=== PATIENT | female | born 1965 | race Caucasian/White ===

== ENCOUNTER 2017-06-15 20:40 | Observation (INO) ==
[2017-06-15] MEDS ORDERED: *HR* Promethazine 25 MG/ML VIAL IVP PRN (22:52)
[2017-06-15] MEDS ORDERED: Acetaminophen 325 MG TABLET PO PRN (22:52)
[2017-06-15] MEDS ORDERED: Naloxone 0.4 MG/ML INJ IVP PRN (22:52)
[2017-06-15] MEDS ORDERED: Nitroglycerin 0.4 MG TAB.SUBL SL PRN (23:01)
[2017-06-15] MEDS ORDERED: Diphenoxylate/Atropine 1 TAB TABLET PO PRN (23:06)
[2017-06-15] MEDS ORDERED: *HR* Dextrose 50 % in Water (Syg) 50 ML SYRINGE IVP PRN (23:12)
[2017-06-15] MEDS ORDERED: D5% in Water 1,000 ML IVC PRN (23:12)
[2017-06-15] MEDS ORDERED: Dextrose Gel 15 GM PO PRN ×2 (23:12)
[2017-06-15] MEDS ORDERED: Ipratropium/Albuterol Neb 3 ML IH PRN (23:12)
[2017-06-15] MEDS ORDERED: NON-FORMULARY MEDICATION 1 EACH EACH (Oxygen [Oxygen] 2 L) NS SCH (23:15)
--- NOTE | 2017-06-15 23:16 | Internal Med History&Physical ---
<Lefty Gongora - Last Filed: 06/16/17 02:58> Date of Encounter: 06/16/17 Time of Encounter: 22:45 Assessment and Plan (1) Acute exacerbation of chronic obstructive airways disease Current visit: No Status: Acute Patiently recently discharged from hospital where she received antibiotics, but did not continue antibiotics as outpatient. Patient reports sudden worsening of shortness of breath with productive cough, leukocytosis (though could be due to steroids), and subjective fevers. We will treat as COPD exacerbation with oral prednisone, azithromycin, and breathing treatments All monitor oxygen saturation and telemetry (2) Bronchitis Current visit: No Status: Acute Plan as above (3) Chest pain Current visit: No Status: Acute Patient chest pain appears pleuritic in nature, unlikely PE given patient's COPD and preserved vitals. The pain could be due to pericarditis, chest x-ray was not suggestive. We will treat acute exacerbation COPD as above We will give 1 dose 800 mg ibuprofen We will continue to trend troponins We will obtain additional EKG in a.m. We will add some lingual nitroglycerin as needed for continued chest pain Qualifiers: Chest pain type: other chest pain Qualified Code(s): R07.89 - Other chest pain; R07.8 - Other chest pain (4) Chronic diastolic heart failure Current visit: No Status: Chronic Last echo performed 06/13/17 showed preserved ejection fraction 55-60%, normal LV size and function, mild concentric left ventricular hypertrophy, and atypical septal motion defect consistent with left bundle branch block. Stable (5) Diabetes mellitus type 2 in obese Current visit: No Status: Chronic Patient normally uses 36 units Lantus at home as well as sliding scale. We will start 36 units Levemir at bedtime Medium dose sliding scale insulin (6) DVT prophylaxis Current visit: No Status: Acute 40 mg enoxaparin every morning (7) Smoker Current visit: No Status: Chronic Counseled on smoking cessation Nicotine patch added (8) Anxiety Current visit: No Status: Chronic Continue home medications Internal Medicine - H&P: HPI Chief complaint: Shortness of breath and CP Admitted From: Home Plans for Post Hospital Care: Home History of present illness: Ms. Strong is a 52 year old female with prior medical history of A. fib, CHF, coronary artery disease, diabetes mellitus, hyperlipidemia, hypertension, and prior MIs who presents to the [place] [facility] originally because of shortness of breath and chest pain. She states these feelings started suddenly this afternoon with shortness of breath to begin with followed by substernal chest pain. She reports her shortness of breath has been progressive over the course of the day and work into chest pain. She was recently discharged after being treated for acute exacerbation COPD and had received antibiotics at that time, she states she was not discharged with antibiotics. She reports that she has had a worsening of her cough and phlegm production. She reports the chest pain as a tight/stabbing feeling that radiates into her neck is 9/10 severity and has been constant for 3 hours. She states that nothing improves the pain and that taking a deep breath makes pain worse, but also causes pain in her left flank. She had recently been discharged from the hospital on 06/13/17 after having been treated for an acute exacerbation COPD. She is scheduled to see her larder cook in [facility] next week. She reports having palpitations during which is hard for her to catch her breath as well as exertional shortness of breath. She feels as if this pain is similar to her previous CA in the past. She feels like she has been somewhat lightheaded and having episodes of fevers, palpitations, and diaphoresis. The diaphoresis coming when she has fevers. She reports having chronic diarrhea as well as occasional hematochezia for which she is currently under the care of Dr. Anand and waiting for a colonoscopy. Past Med Surg Social Fam HX - Past Medical History Medical history: arthritis, atrial fibrillation, CHF, COPD, coronary artery disease, CVA, diabetes, GERD, hyperlipidemia, hypertension, migraine, myocardial infarction, peripheral artery disease, TIA, other Psychiatric history: anxiety, depression, prior suicide attempt, previous psychiatric hospitalization - Past Surgical History Surgical History: angioplasty/stent, appendectomy, cholecystectomy, knee replacement, other - Social History Smoking Status: Current every day smoker Smokeless Tobacco Status: No Alcohol use: rarely Drug use: none - Family History Mother Living Status: Hx Family Cardiac Disorders: Yes Hx Family Respiratory Disorders: Yes Hx Family Cancer: Yes Hx Family GI Disorders: No Hx Family Endocrine Disorder: Yes Hx Family Neuromuscular Disorders: No Hx Family Neurologic Disorders: Yes Hx Family HEENT Disorders: No Hx Family Autoimmune Disorders: No Internal Medicine - H&P: Meds Albuterol Sulfate 3 ml IH Q6H PRN 12/30/16 [History] Budesonide/Formoterol 160/4.5 [Symbicort 160/4.5] 2 puff IH BIDR 12/30/16 [ History] Clotrimazole/Betameth Dip CRM [Lotrisone CRM] 1 appl TP BID 12/30/16 [History] Insulin ASPART [NovoLOG] 0 unit SQ TIDWM PRN 12/30/16 [History] Insulin Glargine,Hum.rec.anlog [Lantus Solostar] 36 unit SQ HS 12/30/16 [History ] Levalbuterol Tartrate [Xopenex Hfa] 1 puff IH BID 12/30/16 [History] Nitroglycerin [Nitrostat] 0.4 mg SL Q5M PRN 12/30/16 [History] Ranitidine HCl [Acid Dog Daycare Provider] 150 mg PO BID 12/30/16 [History] Tiotropium [Spiriva] 18 mcg IH 0700 12/30/16 [History] Ammonium Lactate [Amy-Hydrolac] 1 appl TP BID 03/15/17 [History] Calcium Polycarbophil [Fibercon] 625 mg PO TID PRN 03/15/17 [History] Oxygen 2 l NS HS 03/15/17 [History] Diphenoxylate/Atropine [Lomotil 2.5 mg/0.025 mg] 1 each PO QID PRN 06/10/17 [ History] Tramadol HCl [Ultram] 50 mg PO TID PRN 06/10/17 [History] LORazepam [Ativan] 0.5 mg PO HS #30 tablet 06/13/17 [Rx] Metoprolol [Lopressor] 12.5 mg PO BID #60 tab 06/13/17 [Rx] predniSONE [PredniSONE] 40 mg PO DAILY #10 tablet 06/13/17 [Rx] traZODone [TraZODone] 50 mg PO DAILY #30 tab 06/13/17 [Rx] Gabapentin [Neurontin] 300 mg PO TID 06/15/17 [History] 3 Allergy/AdvReac Type Severity Reaction Status Date / Time baclofen Allergy Itching Verified 05/12/17 20:49 ciprofloxacin [From Cipro] Allergy Hives Verified 06/10/17 10:53 latex Allergy Rash Verified 05/12/17 20:49 Oxycodone Allergy Hallucinati Verified 05/12/17 20:49 ng Penicillins Allergy Hives Verified 05/12/17 20:49 prednisone Allergy Itching Verified 05/12/17 20:49 sulfamethoxazole Allergy Hives Verified 05/12/17 20:49 [From Bactrim] trimethoprim [From Bactrim] Allergy Hives Verified 05/12/17 20:49 cefdinir AdvReac Vomiting Verified 06/10/17 10:53 Review of systems: Gen: Reports fever, denies chills, denies weakness, denies fatigue CV: Reports chest pain, reports exertional dyspnea, reports palpitations Resp: Reports shortness of breath, reports pleuritic pain, reports productive cough, denies wheeze GI: Denies nausea, denies vomiting, denies abdominal pain, denies constipation, reports diarrhea, reports occasional hematochezia, denies melena Neuro: Denies headache, denies confusion, denies focal weakness, denies numbness , denies tingling, denies vision changes Skin: Denies bruising, denies rash : Denies flank pain, denies dysuria, denies hematuria - Constitutional Vitals: Temp Pulse Resp BP Pulse Ox 98.3 F 82 19 113/74 94 06/15/17 22:24 06/15/17 22:24 06/15/17 22:24 06/15/17 22:24 06/15/17 22:24 Exam: General: Cooperative, pleasant, no acute distress, alert and oriented 3, answers questions appropriately HEENT: Normocephalic, atraumatic, neck supple, trachea midline, Conjunctiva pink , sclera anicteric, PERRL, oral mucosa moist, no orophargeal erythema or exudates Respiratory: No accessory muscle usage, diffuse-mild rales on auscultation Cardiovascular: Regular rate and rhythm, S1 and S2 present, no murmurs/rubs/ gallops/clicks appreciated GI/abdominal: Nondistended, nontender, soft, normal bowel sounds, no peritoneal signs Extremities: No calf tenderness, noncyanotic, no pedal edema appreciated, warm, lower extremity pulses palpable and symmetrical Neurological: Alert and oriented 3, no facial droop, no focal deficits Skin: Dry, intact, normal color Internal Med - H&P Results - Labs CBC & Chem 7: 06/16/17 00:21 <Juan David Rust - Last Filed: 06/16/17 04:01> Date of Encounter: 06/16/17 Internal Medicine - H&P: HPI History of present illness: Ms. Strong is a 52 year old female All Systems PM: A 10-system review of systems was performed and is negative for pertinent findings except as documented above in the HPI. - Constitutional Vitals: Temp Pulse Resp BP Pulse Ox 98.0 F 73 16 125/74 95 06/16/17 03:21 06/16/17 03:21 06/16/17 03:21 06/16/17 03:21 06/16/17 03:21 Internal Med - H&P Results - Labs CBC & Chem 7: 06/16/17 00:21 Labs: Short CBC 06/16/17 Range/Units 00:21 WBC 17.9 H (4.3-11.1) K/mcL Hgb 13.8 (11.5-15.4) g/dL Hct 42.4 (35.3-44.9) % Plt Count 264 (140-400) K/mcL Neutrophils # 16.0 H (1.6-8.9) K/mcL Cardiac Enzymes 06/16/17 Range/Units 00:21 Troponin I 0.01 (0-0.03) ng/mL - Attending Attestation I examined this patient and my medical decision-making was reviewed with the Resident Physician. I agree with the documented findings, disposition and treatment plan as described except to the extent set forth below. 52 yo female who was recently admitted and discharged 06/13/17 for COPD flare who presents with mild worsening of symptoms today. Reported SOB with exertion started today. Associated with increased cough since returning home. Is received 20mg prednisone steroid taper therefore explaining the leukocytosis. In addition to SOB, started to noticed some pleuritic quality like chest pain since around 530 pm sternal in nature, stabbing in quality, radiation to neck. Has significant CAD with 2 CVAs reported and 3 CA reported by patient. Had 1 stent 2006. She is established with Dr Hancock cardiology at [place]. EKG reviewed by self with LBBB appearing unchanged, rate 84, non-specific T wave changes. However, some AR depression suggestive of early pericarditis ? XR/XR chest 1V portable IMPRESSION:No acute process. ROS 14 point review of systems reviewed as best as possible given presentation. Pertinent positive or negative as per HPI or otherwise reviewed as negative General - AAO x 3 Psych - Appropriate affect/speech. No agitation Eyes - [place]. Eye lids intact. No scleral icterus Heart - Sinus. RRR. S1 and S2 present. No added HS/murmurs appreciated. No elevated JVD appreciated. Lung - Adequate air entry b/l, No crackles. Scant wheezes appreciated only on deep inspiration GI - Soft, no guarding or rigidity. No hepatosplenomegaly/ascites. BS+ - No CVA/suprapubic tenderness or palpable bladder distension Skin - Intact. No rash/petechiae/ecchymosis. Warm extremities A/P COPD flare IV steroids, azithromycin, Duonebs. CXR wnl Chest pain, pleuritic in quality doubt ACS but given hx, will trend trop, repeat EKG in a.m. Suspicious EKG changes for pericarditis with mild AR depression ? Prn NSAIDs Leukocytosis likely related to steroids DMII continue insulin
[2017-06-15] MEDS ORDERED: Ibuprofen 800 MG TABLET PO ONE (23:28)
[2017-06-16] MEDS: Nicotine 14 MG PATCH.TD24 TD SCH ×2 (00:31→09:13)
[2017-06-16] MEDS: methylPREDNISolone 125 MG/2 ML VIAL IVP SCH ×5 (00:31→23:38)
[2017-06-16 00:33] LABS: Basophils % 0.2 %; Eosinophils % 0.1 %; Hematocrit 42.4 % (35.3-44.9); Hemoglobin 13.8 g/dL (11.5-15.4); Lymphocytes # 1.3 K/mcL (0.6-4.6); Mean Corpuscular HGB Conc 32.5 g/dL (31.6-35.5); Mean Corpuscular Volume 89.1 fL (83.0-100.0); Mean Platelet Volume 9.8 fL (9.4-12.4); Monocytes # 0.3 K/mcL (0.0-1.3); Monocytes % 1.5 %; Platelet Count 264 K/mcL (140-400); Red Blood Count 4.76 M/mcL (3.82-4.97); Red Cell Distribution Width 14.2 % (11.5-14.5); Segmented Neutrophils % 89.2 %
[2017-06-16 00:42] LABS: Magnesium 1.8 mg/dL (1.6-2.6); Phosphorous 3.8 mg/dL (2.3-4.7)
[2017-06-16] MEDS ORDERED: *HR* LORazepam 0.5 MG TABLET PO SCH ×2 (01:16→21:00)
[2017-06-16] MEDS: Gabapentin 300 MG CAPSULE PO SCH ×4 (01:41→21:39)
[2017-06-16] MEDS: traZODone 50 MG TABLET PO SCH ×2 (01:41→21:39)
[2017-06-16] MEDS: Ipratropium/Albuterol Neb 3 ML IH SCH ×5 (03:36→22:36)
[2017-06-16] MEDS: *HR* Enoxaparin 40 MG/0.4 ML SYRINGE SQ SCH (05:56)
[2017-06-16] MEDS: Pantoprazole 40 MG VIAL IVP SCH (05:56)
[2017-06-16] MEDS ORDERED: Gabapentin 300 MG CAPSULE PO SCH (09:00)
[2017-06-16] MEDS ORDERED: traZODone 50 MG TABLET PO SCH (09:00)
[2017-06-16] MEDS: Famotidine 20 MG TABLET PO SCH ×2 (09:12→17:50)
[2017-06-16] MEDS: Insulin LISPRO 300 UNITS/3 ML VIAL SQ SCH ×3 (09:14→17:52)
[2017-06-16] MEDS: Budesonide/Formoterol 160/4.5 MDI IH SCH ×2 (10:44→22:37)
[2017-06-16] MEDS: *HR* LORazepam 1 MG TABLET PO PRN ×2 (15:41→21:56)
--- NOTE | 2017-06-16 16:30 | Internal Med Progress Note ---
<SoledadYumiko - Last Filed: 06/16/17 16:49> Date of Encounter: 06/16/17 Time of Encounter: 09:28 - Assessment and plan (1) Chest pain Current Visit: No Status: Acute Assessment and plan: Chest pain 2/2 to CAD vs. anxiety Pleuritic chest pain, in history. With radiation to neck Atypical chest pain Hx of CAD- Pt received standard chest pain evaluation r/o for cardiac etiology -did not increase with exertion -did not relieve with rest 06/15/ EKG reviewed Troponin x 2 : 0.01, 0.0 06/13 ECHO from previous admission reviewed Qualifiers: Chest pain type: chest pain on breathing Qualified Code(s): R07.1 - Chest pain on breathing; R07.81 - Pleurodynia (2) Anxiety Current Visit: No Status: Chronic Assessment and plan: History of chest pain, suggestive of possible anxiety or panic attack, inc: Palpitations, chest pain, sensation of shortness of breath Pt has history of depression, anxiety and bipolar disorder, & insomnia in most recent visit Psych on consult, greatly appreciate recs (3) COPD (chronic obstructive pulmonary disease) Current Visit: No Status: Acute Assessment and plan: SOB likely 2/2 to COPD vs. anxiety Hx of COPD exacerbation 2 days ago Continue treatment Qualifiers: COPD type: COPD with acute exacerbation Qualified Code(s): J44.1 - Chronic obstructive pulmonary disease with (acute) exacerbation (4) Diabetes mellitus type 2 in obese Current Visit: No Status: Chronic Assessment and plan: Continue insulin Monitor glucose (5) Chronic diastolic heart failure Current Visit: No Status: Chronic (6) Morbid obesity with BMI of 50.0-59.9, adult Current Visit: No Status: Chronic (7) Afib Current Visit: No Status: Chronic Assessment and plan: [id number] - 5 (Age, F, CHF history , HTN Hx, Vascular disease, DM) Pt on Lovenox Qualifiers: Atrial fibrillation type: paroxysmal Qualified Code(s): I48.0 - Paroxysmal atrial fibrillation (8) DVT prophylaxis Current Visit: No Status: Acute Assessment and plan: Pt on lovenox (9) Smoker Current Visit: No Status: Chronic Assessment and plan: Nicotine patch (10) Depression Current Visit: Yes Status: Chronic Assessment and plan: Pt seen with psych, greatly appreciate consult recs Qualifiers: Depression Type: major depressive disorder Major depression recurrence: recurrent Active/Remission status: currently active Psychotic features: without psychotic features Qualified Code(s): F33.2 - Major depressive disorder, recurrent severe without psychotic features - Subjective Interval history: Pt sitting comfortably in no distress. States she feels like her chest "tightness" was possibly caused by her anxiety. Chest pain was not exertional, did not relieve with rest. Would like to see psychiatry sooner for her medication - Constitutional Vitals: Temp Pulse Resp BP Pulse Ox 97.9 F 87 17 147/70 96 06/16/17 15:18 06/16/17 15:18 06/16/17 16:12 06/16/17 15:18 06/16/17 16:12 General appearance: Present: cooperative, A&O X 3, no acute distress, answers questions appropriately - Head Head exam: Present: atraumatic, normocephalic - Respiratory Respiratory exam: Present: wheezes (expiratory). Absent: accessory muscle use, decreased breath sounds, rales, respiratory distress (pt removed nasal cannula. Pulse ox at end of exam 95%) - Cardiovascular Cardiovascular exam: Present: RRR, +S1, +S2. Absent: gallop, rubs - Extremities Exam Extremities exam: Present: warm, radial pulses palpable and symmetrical. Absent : calf tenderness, cyanotic, mottling, pedal edema Additional comments: erythema on lower right LE, pt states chronic, unchanged in character since initial appearance. No tenderness in area. Internal Medicine: Result - Labs CBC & Chem 7: 06/16/17 00:21 Labs: Short CBC 06/16/17 Range/Units 00:21 WBC 17.9 H (4.3-11.1) K/mcL Hgb 13.8 (11.5-15.4) g/dL Hct 42.4 (35.3-44.9) % Plt Count 264 (140-400) K/mcL Neutrophils # 16.0 H (1.6-8.9) K/mcL Cardiac Enzymes 06/16/17 06/16/17 Range/Units 00:21 05:59 Troponin I 0.01 0.00 (0-0.03) ng/mL Consult Discharge Plan - Plan Referrals: Maurisio Ward MD [Primary Care Provider] - 06/23/17 9:45 am <Ray Lepe - Last Filed: 06/16/17 19:42> Date of Encounter: 06/16/17 - Assessment and plan (1) Acute and chronic respiratory failure with hypoxia Current Visit: No Status: Acute (2) COPD (chronic obstructive pulmonary disease) Current Visit: No Status: Acute Qualifiers: COPD type: COPD with acute exacerbation Qualified Code(s): J44.1 - Chronic obstructive pulmonary disease with (acute) exacerbation (3) SNEHA (obstructive sleep apnea) Current Visit: No Status: Chronic (4) Tobacco abuse Current Visit: No Status: Chronic (5) Palpitations Current Visit: Yes Status: Acute - Constitutional Vitals: Temp Pulse Resp BP Pulse Ox 98.6 F 96 20 143/71 97 06/16/17 18:46 06/16/17 18:46 06/16/17 18:46 06/16/17 18:46 06/16/17 18:46 Internal Medicine: Result - Labs CBC & Chem 7: 06/16/17 00:21 Labs: Short CBC 06/16/17 Range/Units 00:21 WBC 17.9 H (4.3-11.1) K/mcL Hgb 13.8 (11.5-15.4) g/dL Hct 42.4 (35.3-44.9) % Plt Count 264 (140-400) K/mcL Neutrophils # 16.0 H (1.6-8.9) K/mcL Cardiac Enzymes 06/16/17 06/16/17 Range/Units 00:21 05:59 Troponin I 0.01 0.00 (0-0.03) ng/mL - Attending Attestation I examined this patient and my medical decision-making was reviewed with the Resident Physician on 06/16/17. I agree with the documented findings, disposition and treatment plan as described except to the extent set forth below. Ms. Strong has been placed in observation due to recurrent palpitations and chest discomfort. She is very anxious. Ms. Strong continues to have some chest palpitations. She feels very anxious and panicked. No pain now. Breathing OK. Exam Alert. Comfortable Heart reg No wheeze now Abd soft No edema I/P 1. Chest pain 2. Palpitations 3. Anxiety - Psych eval Card eval Further diagnoses and plan as above
--- NOTE | 2017-06-16 17:07 | Electrocardiograph Report ---
[place] [id number] Test Date: 2017-06-15 Pat Name: Aliza Strong Department: 113 Room: 3B44 Gender: F Order Control Clerk Blood Bank: SAUL : 1965 Requested By: Ray Lepe Order Number: [id number] Reading MD: Humble Gregory DO Measurements Intervals [place] Rate: 84 P: 69 [place]: 140 QRS: 26 QRSD: 140 T: 89 QT: 456 QTc: 498 Interpretive Statements SINUS RHYTHM WITH OCCASIONAL ECTOPIC PREMATURE COMPLEXES LEFT BUNDLE BRANCH BLOCK Electronically Signed On 06-16-2017 17:06:05 EDT by Humble Gregory DO
[2017-06-16] MEDS ORDERED: *HR* LORazepam 2 MG/ML VIAL IVP ONE (17:20)
[2017-06-16] MEDS ORDERED: Insulin DETEMIR 100 UNIT/ML X5UNITS SQ SCH (21:00)
[2017-06-16] MEDS ORDERED: Insulin LISPRO 300 UNITS/3 ML VIAL SQ SCH (21:00)
[2017-06-16] MEDS ORDERED: Azithromycin 500 MG in D5% in Water 250 ML IVPB SCH (21:00)
[2017-06-16] MEDS: traMADol 50 MG TABLET PO PRN (21:56)
[2017-06-17] MEDS: Ipratropium/Albuterol Neb 3 ML IH SCH ×3 (04:25→15:38)
[2017-06-17 05:29] LABS: Basophils % 0.2 %; Hematocrit 39.1 % (35.3-44.9); Hemoglobin 12.8 g/dL (11.5-15.4); Immature Granulocytes % 2.9 % (0-4); Lymphocytes # 0.9 K/mcL (0.6-4.6); Lymphocytes % 4.7 %; Mean Corpuscular HGB Conc 32.7 g/dL (31.6-35.5); Mean Corpuscular Volume 88.5 fL (83.0-100.0); Mean Platelet Volume 10.7 fL (9.4-12.4); Monocytes # 0.4 K/mcL (0.0-1.3); Neutrophils # 17.5 K/mcL (1.6-8.9); Platelet Count 254 K/mcL (140-400); Red Blood Count 4.42 M/mcL (3.82-4.97); Red Cell Distribution Width 14.3 % (11.5-14.5); Segmented Neutrophils % 90.2 %
[2017-06-17] MEDS: Pantoprazole 40 MG VIAL IVP SCH (06:26)
[2017-06-17] MEDS: methylPREDNISolone 125 MG/2 ML VIAL IVP SCH ×2 (06:26→13:12)
[2017-06-17] MEDS: *HR* Enoxaparin 40 MG/0.4 ML SYRINGE SQ SCH (06:26)
[2017-06-17] MEDS: Famotidine 20 MG TABLET PO SCH (06:27)
[2017-06-17] MEDS: Insulin LISPRO 300 UNITS/3 ML VIAL SQ SCH ×2 (07:49→12:07)
[2017-06-17] MEDS: Nicotine 14 MG PATCH.TD24 TD SCH (09:21)
[2017-06-17] MEDS: Gabapentin 300 MG CAPSULE PO SCH ×2 (09:21→14:49)
[2017-06-17] MEDS: traMADol 50 MG TABLET PO PRN ×2 (09:22→13:22)
[2017-06-17] MEDS: *HR* LORazepam 1 MG TABLET PO PRN (09:22)
--- NOTE | 2017-06-17 09:23 | Cardiology Consult Note ---
Date of Encounter: 06/17/17 Time of Encounter: 09:18 Assessment and Plan (1) Chest pain Current Visit: No Status: Acute Troponin negative x 2. Atypical chest pain that is intermittent. No significant EKG changes. Negative stress test 05/2016. [facility] 01/2016 [facility] without intervention--30-40% pLAD ISR. Suspect anxiety component as she has been off her psych meds. Constant left neck pain reproducible on palpation. Carotid dopplers 08/2016 60- 79% right internal carotid stenosis and 40-59% left internal carotid stenosis with recommendations to recheck in 1 year. Echo 06/13/17 with preserved EF. Do not recommend any further cardiac work-up at this time. Recommend resuming ASA and Statin. Continue BB. Add Imdur. Called pharmacy and pharmacy reports Imdur has never been filled. Cardiology signing off. Reconsult PRN. Follow-up as outpt. Qualifiers: Chest pain type: chest pain on breathing Qualified Code(s): R07.1 - Chest pain on breathing; R07.81 - Pleurodynia (2) CAD (coronary artery disease) Current Visit: Yes Status: Chronic Hx of PCI to pLAD. [facility] 01/2016 showed 30-40% ISR. Negative stress 05/2016. ASA, Statin, BB, Imdur. Qualifiers: Coronary Disease-Associated Artery/Lesion type: three affiliated artery [place] vs. transplanted heart: three affiliated heart Associated angina: angina presence unspecified Qualified Code(s): I25.10 - Atherosclerotic heart disease of three affiliated coronary artery without angina pectoris (3) PAF (paroxysmal atrial fibrillation) Current Visit: Yes Status: Acute Documented hx of PAF, previously on Eliquis for AC, but per pt stopped 2 months ago due to rectal bleeding. Holter 02/2016 showed no PAF. Maintaining SR as inpt. Continue BB and ASA only for now given her hx of rectal bleeding on AC. Can be re-addressed as outpt. (4) Palpitations Current Visit: Yes Status: Acute Seems anxiety related. Holter 02/2016 showed rare PVCs and PACs. Tele reviewed-- maintaining SR. Echo preserved EF. Hx of PAF, but no recurrence documented recently. Continue BB. Discussion w patient/family: The assessment and plan as outlined above was discussed with the patient and/or family members who expressed understanding and agreement. All questions were answered. Thank you for involving us in the care of your patient. Please call with any questions. I will discuss all the above with Dr. Porter and make changes as necessary. History of Present Illness Consult date: 06/17/17 Requesting physician: Ray Lepe Consult reason: chest pain, palpitations Chief complaint: chest pain, palpitations History of present illness: Ms. Strong is a 52 year old female with PMH of PAF, CAD s/p PCI in 2006, LBBB, SNEHA (noncompliant with CPAP), obesity, DMII, HTN, HLD, supplemental O2 dependant who presented to the [facility] originally because of shortness of breath, palpitations and chest pain. She was recently discharged after being treated for acute exacerbation COPD and had received antibiotics at that time, she states she was not discharged with antibiotics. She reports the chest pain as a tight/stabbing feeling that radiates into her left neck that has been constant for 1 week. She reports the chest pain has been intermittent, not worsened on exertion. She states that nothing improves the pain and that taking a deep breath makes pain worse, but also causes pain in her left flank. She reports palpitations associated with dyspnea. She is currently chest pain free. Troponins negative x 2. Cardiology consulted for further recommendations. Upon further questioning, pt has been out of her depression/anxiety meds for 4-5 months. She is awaiting transfer to for further psych management. Recent CV testing: Echo 06/13/17: EF 55-60%, mild concentric LVH, pseudonormal LVDD, no significant valvular dysfunction. Nuclear stress test 05/27/16: Small sized, mild intensity fixed defect involving mid to distal anteroseptum. Cannot rule out prior infarction in this area. No evidence for ischemia. Gated EF 62%. Holter Monitor 48 hr 02/19/16: AVG HR 91. No symptoms reported. Rare PVCs and occasional PACs. [facility] 01/29/16 at [facility]: Left main normal. pLAD stent with 30-40% ISR. D1 small, ostial 60% lesion. LCx and OM branch with no significant CAD. pRCA 30% stenosis , EDP 14mmHg. Past Med Surg Social Fam HX - Past Medical History Medical history: arthritis, atrial fibrillation, COPD, coronary artery disease, CVA, diabetes, GERD, hyperlipidemia, hypertension, migraine, myocardial infarction, peripheral artery disease, TIA, other Psychiatric history: anxiety, depression, prior suicide attempt, previous psychiatric hospitalization - Past Surgical History Surgical History: angioplasty/stent, appendectomy, cholecystectomy, knee replacement, other - Social History Smoking Status: Current every day smoker Smokeless Tobacco Status: No Alcohol use: rarely Drug use: none - Family History Mother Living Status: Hx Family Cardiac Disorders: Yes Hx Family Respiratory Disorders: Yes Hx Family Cancer: Yes Hx Family GI Disorders: No Hx Family Endocrine Disorder: Yes Hx Family Neuromuscular Disorders: No Hx Family Neurologic Disorders: Yes Hx Family HEENT Disorders: No Hx Family Autoimmune Disorders: No Medications and Allergies Albuterol Sulfate 3 ml IH Q6H PRN 12/30/16 [History] Budesonide/Formoterol 160/4.5 [Symbicort 160/4.5] 2 puff IH BIDR 12/30/16 [ History] Clotrimazole/Betameth Dip CRM [Lotrisone CRM] 1 appl TP BID 12/30/16 [History] Insulin ASPART [NovoLOG] 0 unit SQ TIDWM PRN 12/30/16 [History] Insulin Glargine,Hum.rec.anlog [Lantus Solostar] 36 unit SQ HS 12/30/16 [History ] Levalbuterol Tartrate [Xopenex Hfa] 1 puff IH BID 12/30/16 [History] Nitroglycerin [Nitrostat] 0.4 mg SL Q5M PRN 12/30/16 [History] Ranitidine HCl [Acid Software Performance Engineer] 150 mg PO BID 12/30/16 [History] Tiotropium [Spiriva] 18 mcg IH 0700 12/30/16 [History] Ammonium Lactate [Amy-Hydrolac] 1 appl TP BID 03/15/17 [History] Calcium Polycarbophil [Fibercon] 625 mg PO TID PRN 03/15/17 [History] Oxygen 2 l NS HS 03/15/17 [History] Diphenoxylate/Atropine [Lomotil 2.5 mg/0.025 mg] 1 each PO QID PRN 06/10/17 [ History] Tramadol HCl [Ultram] 50 mg PO TID PRN 06/10/17 [History] LORazepam [Ativan] 0.5 mg PO HS #30 tablet 06/13/17 [Rx] Metoprolol [Lopressor] 12.5 mg PO BID #60 tab 06/13/17 [Rx] predniSONE [PredniSONE] 40 mg PO DAILY #10 tablet 06/13/17 [Rx] traZODone [TraZODone] 50 mg PO DAILY #30 tab 06/13/17 [Rx] Gabapentin [Neurontin] 300 mg PO TID 06/15/17 [History] 3 Allergy/AdvReac Type Severity Reaction Status Date / Time baclofen Allergy Itching Verified 05/12/17 20:49 ciprofloxacin [From Cipro] Allergy Hives Verified 06/10/17 10:53 latex Allergy Rash Verified 05/12/17 20:49 Oxycodone Allergy Hallucinati Verified 05/12/17 20:49 ng Penicillins Allergy Hives Verified 05/12/17 20:49 prednisone Allergy Itching Verified 05/12/17 20:49 sulfamethoxazole Allergy Hives Verified 05/12/17 20:49 [From Bactrim] trimethoprim [From Bactrim] Allergy Hives Verified 05/12/17 20:49 cefdinir AdvReac Vomiting Verified 06/10/17 10:53 All Systems Review: A 10-system review of systems was performed and is negative for pertinent findings except as documented above in the HPI. - Cardiovascular Cardiovascular: as per HPI, chest pain at rest, chest pain with exertion, dyspnea at rest, dyspnea on exertion, radiating jaw, neck or arm pain, palpitations - Respiratory Respiratory: dyspnea - Psychiatric Psychiatric: anxiety Physical Examination Vital Signs, Last 4 Hours Temp Pulse Resp BP Pulse Ox 06/17/17 07:34 97.6 F 98 15 144/67 97 Vital Signs Temp Pulse Resp BP Pulse Ox 06/17/17 07:34 97.6 F 98 15 144/67 97 06/17/17 04:25 16 97 06/17/17 03:29 98.2 F 89 18 147/89 96 06/16/17 23:32 98.5 F 102 20 134/76 96 06/16/17 22:37 16 97 06/16/17 18:46 98.6 F 96 20 143/71 97 06/16/17 16:12 17 96 06/16/17 15:18 97.9 F 87 17 147/70 96 06/16/17 11:18 97.8 F 85 19 145/81 95 06/16/17 10:44 16 99 Intake and Output 06/16/17 06/17/17 06/17/17 23:59 07:59 15:59 Intake Total 480 / 480 800 / 800 Output Total 800 / 800 1100 / 1100 Balance -320 / -320 -300 / -300 Intake: Oral 480 / 480 800 / 800 Output: Urine 800 / 800 1100 / 1100 Other: Weight 99.065 kg Blood Glucose* 307 276 Patient Weight 06/17/17 23:59 Weight 99.065 kg General: Conversant, No Apparent Distress HEENT: Atraumatic, Normocephaly, Mucus Membranes Moist Neck: No JVD, Normal carotid pulses Cardiac: Reg Rate and Rhythm, Normal S1 and S2, No Murmur Lungs: Normal Breath Sounds, No Wheeze, Rales, Rhonchi Neuro: Alert and responsive, No focal deficits noted Abdomen: Soft, Non-Tender Skin: No rashes noted on visualized skin Musculoskeletal: Other (left neck tenderness on palpation) Extremities: No Clubbing, No Cyanosis, No Edema, Normal Pulses Results 06/17/17 04:48 Lab Results 06/17/17 04:48 WBC 19.4 H Hgb 12.8 Hct 39.1 Plt Count 254 Short CBC 06/17/17 Range/Units 04:48 WBC 19.4 H (4.3-11.1) K/mcL Hgb 12.8 (11.5-15.4) g/dL Hct 39.1 (35.3-44.9) % Plt Count 254 (140-400) K/mcL Neutrophils # 17.5 H (1.6-8.9) K/mcL Active Medications Acetaminophen (Tylenol) 650 mg PO Q6HR PRN PRN Reason: Mild Pain or fever Stop: 12/15/17 22:53 Last Admin: 06/17/17 04:29 Dose: 650 mg Albuterol/Ipratropium (Duoneb) 3 ml IH QIDR SD Stop: 12/15/17 23:01 Last Admin: 06/17/17 04:25 Dose: 3 ml Albuterol/Ipratropium (Duoneb) 3 ml IH [id number] PRN; Protocol PRN Reason: Shortness Of Breath/Wheezing Stop: 12/15/17 23:13 Budesonide/Formoterol Fumarate (Symbicort) 2 puff IH BIDR SD PRN Reason: Protocol Stop: 12/16/17 10:01 Last Admin: 06/16/17 22:37 Dose: 2 puff Calcium Polycarbophil (Fibercon) 625 mg PO TID PRN PRN Reason: Constipation Stop: 12/15/17 23:07 Dextrose/Water (Dextrose 50% (Syg)) 25 ml IVP AD PRN PRN Reason: Hypoglycemia Stop: 12/15/17 23:13 Diphenhydramine HCl (Benadryl) 25 mg IVP Q6HR PRN PRN Reason: Given prior to Solu-medrol Stop: 12/15/17 23:06 Last Admin: 06/17/17 06:26 Dose: 25 mg Diphenoxylate HCl/Atropine (Lomotil 2.5 Mg/0.025 Mg) 1 tab PO QID PRN PRN Reason: Diarrhea Stop: 12/15/17 23:07 Enoxaparin Sodium (Lovenox) 40 mg SQ 0700 [facility] PRN Reason: Protocol Stop: 12/16/17 07:01 Last Admin: 06/17/17 06:26 Dose: 40 mg Famotidine (Pepcid) 20 mg PO BIDAC SD Stop: 12/16/17 07:31 Last Admin: 06/17/17 06:27 Dose: 20 mg Gabapentin (Neurontin) 300 mg PO TID [facility] Stop: 12/16/17 01:16 Last Admin: 06/17/17 09:21 Dose: 300 mg Glucagon (Glucagen) 1 mg IM ONCE PRN PRN Reason: Hypoglycemia Stop: 12/15/17 23:13 Glucose (Gluctose) 15 gm PO ONCE PRN PRN Reason: Hypoglycemia Stop: 12/15/17 23:13 Glucose (Gluctose) 30 gm PO ONCE PRN PRN Reason: Hypoglycemia Stop: 12/15/17 23:13 Azithromycin 500 mg/ Dextrose 250 mls @ 252 mls/hr IVPB Q24H [facility] Stop: 12/16/17 21:01 Last Admin: 06/16/17 21:57 Dose: 252 mls/hr Dextrose (Dextrose 5%) 1,000 mls @ 100 mls/hr IVC .Q10H PRN PRN Reason: HYPOGLYCEMIA Stop: 12/15/17 23:13 Insulin Detemir (Levemir) 36 unit SQ HS [facility] Stop: 12/16/17 21:01 Last Admin: 06/16/17 21:40 Dose: 36 unit Insulin Human Lispro (Humalog) 0 units SQ HS [facility] PRN Reason: Protocol Stop: 12/16/17 21:01 Last Admin: 06/16/17 21:41 Dose: 6 units Insulin Human Lispro (Humalog) 0 units SQ TIDAC [facility] PRN Reason: Protocol Stop: 12/16/17 07:31 Last Admin: 06/17/17 07:49 Dose: 4 units Lorazepam (Ativan) 1 mg PO BID PRN PRN Reason: Anxiety Stop: 12/16/17 14:18 Last Admin: 06/17/17 09:22 Dose: 1 mg Methylprednisolone (Solu-Medrol) 60 mg IVP Q6HR [facility] Stop: 12/16/17 00:01 Last Admin: 06/17/17 06:26 Dose: 60 mg Metoprolol Tartrate (Lopressor) 12.5 mg PO BID [facility] Stop: 12/16/17 09:01 Last Admin: 06/17/17 09:20 Dose: 12.5 mg Naloxone HCl (Narcan) 0.4 mg IVP Q2MIN PRN PRN Reason: Opioid Reversal Stop: 12/15/17 22:53 Nicotine (Nicoderm) 14 mg TD DAILY [facility] Stop: 12/15/17 23:01 Last Admin: 06/17/17 09:21 Dose: 14 mg Nitroglycerin (Nitroglycerin) 0.4 mg SL Q5MIN PRN PRN Reason: Chest Pain Stop: 12/15/17 23:02 Last Admin: 06/16/17 00:32 Dose: 0.4 mg Pantoprazole Sodium (Protonix) 40 mg IVP 0630 [facility] Stop: 12/16/17 06:31 Last Admin: 06/17/17 06:26 Dose: 40 mg Promethazine HCl (Phenergan) 12.5 mg IVP Q6HR PRN PRN Reason: Nausea And Vomiting Stop: 12/15/17 22:53 Last Admin: 06/16/17 00:31 Dose: 12.5 mg Tramadol HCl (Ultram) 50 mg PO TID PRN PRN Reason: Pain Stop: 12/15/17 23:07 Last Admin: 06/17/17 09:22 Dose: 50 mg Trazodone HCl (Trazodone) 50 mg PO HS SD Stop: 12/16/17 01:18 Last Admin: 06/16/17 21:39 Dose: 50 mg - Imaging and Cardiology Stress Test: report reviewed Echo: report reviewed Cardiac cath: report reviewed - EKG Interpretation EKG results cardiology: personally reviewed (SR, LBBB) Consult Discharge Plan - Plan Referrals: Maurisio Ward MD [Primary Care Provider] - 06/23/17 9:45 am
--- NOTE | 2017-06-17 09:30 | Consult Note ---
Date of Encounter: 06/17/17 Time of Encounter: 09:28 Assessment & Recommendation (1) Bipolar 1 disorder Current visit: Yes Status: Acute Assessment & Recommendation: Once patient is medically clear patient can be admitted to one a psychiatric unit for further safety and stabilization and to get back on her medications. She requires hospitalization due to her concern for her intense mood swings and not feeling safe to go home due to these mood swings. History of Present Illness Requesting Physician: Ray Lepe DO Reason for consult: anxiety History of present illness: Ms. Strong is a 52 year old female with a past psychiatric history per patient of anxiety bipolar and depression. Patient admitted to the medical floor. A psychiatry consult and for readmission secondary to episode related to anxiety. On approach patient was in dialysis she was calm and cooperative and very pleasant with the evaluation. Patient reports that she used to see Dr. Jones and reports when he laughs that she could not find another psychiatrist reports she has not been on her psychiatric medications for the last 4-5 months she reports she used to be on Effexor and diazepam regarding diazepam and she reports "it works and then it does not" patient continues to state "Klonopin works better". Patient reports that she has been on Depakote before and has not worked while before for her bipolar disorder and she is unable to recall what medication she was on for bipolar disorder and her mood swings patient reports that she is concerned because her daughter has been usually fight but she reports more recently her mood swings have been "very intense". Patient reports she is getting very angry to the point she cannot remember what she does she reports increased anxiety and ongoing panic attacks 2-3 times a week patient reports that on the medical floor she is on Ativan patient is not sure if that is really helping notch discussed with patient her stabilization patient reports she feels that she needs stabilization on her medication prior to being discharged back home we discussed admission to when she was medically stable and patient was agreeable to this patient endorsed depressive symptoms patient endorses anxiety symptoms patient did not endorse psychotic symptoms CC: Ray Lepe DO Past Med Surg Social Fam HX - Past Medical History Medical history: arthritis, atrial fibrillation, CHF, COPD, coronary artery disease, CVA, diabetes, GERD, hyperlipidemia, hypertension, migraine, myocardial infarction, peripheral artery disease, TIA, other - Past Psychiatric History Psychiatric history: Reports: anxiety, bipolar, depression - Past Surgical History Surgical History: angioplasty/stent, appendectomy, cholecystectomy, knee replacement, other - Social History Smoking Status: Current every day smoker Smokeless Tobacco Status: No Alcohol use: rarely Drug use: none - Family History Mother Living Status: Hx Family Cardiac Disorders: Yes Hx Family Respiratory Disorders: Yes Hx Family Cancer: Yes Hx Family GI Disorders: No Hx Family Endocrine Disorder: Yes Hx Family Neuromuscular Disorders: No Hx Family Neurologic Disorders: Yes Hx Family HEENT Disorders: No Hx Family Autoimmune Disorders: No Medications & Allergies Albuterol Sulfate 3 ml IH Q6H PRN 12/30/16 [History] Budesonide/Formoterol 160/4.5 [Symbicort 160/4.5] 2 puff IH BIDR 12/30/16 [ History] Clotrimazole/Betameth Dip CRM [Lotrisone CRM] 1 appl TP BID 12/30/16 [History] Insulin ASPART [NovoLOG] 0 unit SQ TIDWM PRN 12/30/16 [History] Insulin Glargine,Hum.rec.anlog [Lantus Solostar] 36 unit SQ HS 12/30/16 [History ] Levalbuterol Tartrate [Xopenex Hfa] 1 puff IH BID 12/30/16 [History] Nitroglycerin [Nitrostat] 0.4 mg SL Q5M PRN 12/30/16 [History] Ranitidine HCl [Acid Front End Developer Designer] 150 mg PO BID 12/30/16 [History] Tiotropium [Spiriva] 18 mcg IH 0700 12/30/16 [History] Ammonium Lactate [Amy-Hydrolac] 1 appl TP BID 03/15/17 [History] Calcium Polycarbophil [Fibercon] 625 mg PO TID PRN 03/15/17 [History] Oxygen 2 l NS HS 03/15/17 [History] Diphenoxylate/Atropine [Lomotil 2.5 mg/0.025 mg] 1 each PO QID PRN 06/10/17 [ History] Tramadol HCl [Ultram] 50 mg PO TID PRN 06/10/17 [History] LORazepam [Ativan] 0.5 mg PO HS #30 tablet 06/13/17 [Rx] Metoprolol [Lopressor] 12.5 mg PO BID #60 tab 06/13/17 [Rx] predniSONE [PredniSONE] 40 mg PO DAILY #10 tablet 06/13/17 [Rx] traZODone [TraZODone] 50 mg PO DAILY #30 tab 06/13/17 [Rx] Gabapentin [Neurontin] 300 mg PO TID 06/15/17 [History] 3 Allergy/AdvReac Type Severity Reaction Status Date / Time baclofen Allergy Itching Verified 05/12/17 20:49 ciprofloxacin [From Cipro] Allergy Hives Verified 06/10/17 10:53 latex Allergy Rash Verified 05/12/17 20:49 Oxycodone Allergy Hallucinati Verified 05/12/17 20:49 ng Penicillins Allergy Hives Verified 05/12/17 20:49 prednisone Allergy Itching Verified 05/12/17 20:49 sulfamethoxazole Allergy Hives Verified 05/12/17 20:49 [From Bactrim] trimethoprim [From Bactrim] Allergy Hives Verified 05/12/17 20:49 cefdinir AdvReac Vomiting Verified 06/10/17 10:53 Review of Systems Psychiatric: Reports: depression, anxiety, difficulty concentrating, mood swings , panic attacks Mental Status Exam Patient orientation: Yes Person, Yes Time, Yes Place Level of alertness: Alert Patient appearance: Appropriate Behavior: anxious, restless, talkative Psychomotor activity: Increased Eye contact: Maintains Eye Contact Mood description: Depressed, Anxious, Labile Affect description: full range, anxious Speech pattern: Normal rate, Normal rhythm, Normal tone Speech volume: Normal Thought process: Intact Thought content: Yes Intact Attention span: Capable of Focused Attention, Capable of Sustained Attention Memory description: Grossly Intact, Immediate Intact Patient reliability: Reliable Historian Intelligence estimate: Average Judgment: Fair Insight: Partial Results - Vital Signs Vital signs: Temp Pulse Resp BP Pulse Ox 97.6 F 98 15 144/67 97 06/17/17 07:34 06/17/17 07:34 06/17/17 07:34 06/17/17 07:34 06/17/17 07:34 - Labs Labs: Laboratory Last Values WBC 19.4 K/mcL (4.3-11.1) H 06/17/17 04:48 RBC 4.42 M/mcL (3.82-4.97) 06/17/17 04:48 Hgb 12.8 g/dL (11.5-15.4) 06/17/17 04:48 Hct 39.1 % (35.3-44.9) 06/17/17 04:48 MCV 88.5 fL (83.0-100.0) 06/17/17 04:48 MCH 29.0 pg (28.0-33.3) 06/17/17 04:48 MCHC 32.7 g/dL (31.6-35.5) 06/17/17 04:48 RDW 14.3 % (11.5-14.5) 06/17/17 04:48 Plt Count 254 K/mcL (140-400) 06/17/17 04:48 MPV 10.7 fL (9.4-12.4) 06/17/17 04:48 Immature Gran % 2.9 % (0-4) 06/17/17 04:48 Seg Neutrophils % 90.2 % 06/17/17 04:48 Lymphocytes % 4.7 % 06/17/17 04:48 Monocytes % 2.0 % 06/17/17 04:48 Eosinophils % 0.0 % 06/17/17 04:48 Basophils % 0.2 % 06/17/17 04:48 Neutrophils # 17.5 K/mcL (1.6-8.9) H 06/17/17 04:48 Lymphocytes # 0.9 K/mcL (0.6-4.6) 06/17/17 04:48 Monocytes # 0.4 K/mcL (0.0-1.3) 06/17/17 04:48 Eosinophils # 0.0 K/mcL (0.0-0.6) 06/17/17 04:48 Basophils # 0.0 K/mcL (0.0-0.2) 06/17/17 04:48 POC Glucose 307 (58-89) H 06/16/17 20:31 Phosphorus 3.8 mg/dL (2.3-4.7) 06/16/17 00:21 Magnesium 1.8 mg/dL (1.6-2.6) 06/16/17 00:21 Troponin I 0.00 ng/mL (0-0.03) 06/16/17 05:59 Consult Discharge Plan - Plan Referrals: Maurisio Ward MD [Primary Care Provider] - 06/23/17 9:45 am
[2017-06-17] MEDS ORDERED: Isosorbide MONOnitrate (24 HR) 30 MG TAB.ER.24H PO SCH (10:30)
[2017-06-17] MEDS ORDERED: Aspirin 81 MG TAB.CHEW PO SCH (10:30)
[2017-06-17] MEDS: Budesonide/Formoterol 160/4.5 MDI IH SCH (10:53)
[2017-06-17 11:57] VITALS: BP 142/82
--- NOTE | 2017-06-17 14:42 | Discharge Summary ---
<Yumiko Rowe - Last Filed: 06/17/17 17:02> Date of Encounter: 06/17/17 Time of Encounter: 14:36 - Discharge Diagnosis (1) Chest pain Priority: Primary Status: Acute Qualifiers: Chest pain type: chest pain on breathing Qualified Code(s): R07.1 - Chest pain on breathing; R07.81 - Pleurodynia (2) Depression Priority: Primary Status: Chronic Qualifiers: Depression Type: major depressive disorder Major depression recurrence: recurrent Active/Remission status: currently active Psychotic features: without psychotic features Qualified Code(s): F33.2 - Major depressive disorder, recurrent severe without psychotic features (3) Anxiety Priority: Primary Status: Chronic (4) COPD (chronic obstructive pulmonary disease) Priority: Primary Status: Acute Qualifiers: COPD type: COPD with acute exacerbation Qualified Code(s): J44.1 - Chronic obstructive pulmonary disease with (acute) exacerbation (5) Diabetes mellitus type 2 in obese Priority: Secondary Status: Chronic (6) Chronic diastolic heart failure Priority: Secondary Status: Chronic (7) Morbid obesity with BMI of 50.0-59.9, adult Priority: Secondary Status: Chronic (8) Afib Priority: Secondary Status: Chronic Qualifiers: Atrial fibrillation type: paroxysmal Qualified Code(s): I48.0 - Paroxysmal atrial fibrillation (9) DVT prophylaxis Priority: Secondary Status: Acute (10) Smoker Priority: Secondary Status: Chronic - Discharge Medications Home Medications: Albuterol Sulfate 3 ml IH Q6H PRN 12/30/16 [History] Budesonide/Formoterol 160/4.5 [Symbicort 160/4.5] 2 puff IH BIDR 12/30/16 [ History] Clotrimazole/Betameth Dip CRM [Lotrisone CRM] 1 appl TP BID 12/30/16 [History] Insulin ASPART [NovoLOG] 0 unit SQ TIDWM PRN 12/30/16 [History] Insulin Glargine,Hum.rec.anlog [Lantus Solostar] 36 unit SQ HS 12/30/16 [History ] Levalbuterol Tartrate [Xopenex Hfa] 1 puff IH BID 12/30/16 [History] Nitroglycerin [Nitrostat] 0.4 mg SL Q5M PRN 12/30/16 [History] Ranitidine HCl [Acid [employer]obile [employer] Customizer] 150 mg PO BID 12/30/16 [History] Tiotropium [Spiriva] 18 mcg IH 0700 12/30/16 [History] Ammonium Lactate [Amy-Hydrolac] 1 appl TP BID 03/15/17 [History] Calcium Polycarbophil [Fibercon] 625 mg PO TID PRN 03/15/17 [History] Oxygen 2 l NS HS 03/15/17 [History] Diphenoxylate/Atropine [Lomotil 2.5 mg/0.025 mg] 1 each PO QID PRN 06/10/17 [ History] Tramadol HCl [Ultram] 50 mg PO TID PRN 06/10/17 [History] LORazepam [Ativan] 0.5 mg PO HS #30 tablet 06/13/17 [Rx] Metoprolol [Lopressor] 12.5 mg PO BID #60 tab 06/13/17 [Rx] predniSONE [PredniSONE] 40 mg PO DAILY #10 tablet 06/13/17 [Rx] Gabapentin [Neurontin] 300 mg PO TID 06/15/17 [History] traZODone [TraZODone] 50 mg PO HS 06/17/17 [History] Allergies/Adverse Reactions: 3 Allergy/AdvReac Type Severity Reaction Status Date / Time baclofen Allergy Itching Verified 05/12/17 20:49 ciprofloxacin [From Cipro] Allergy Hives Verified 06/10/17 10:53 latex Allergy Rash Verified 05/12/17 20:49 Oxycodone Allergy Hallucinati Verified 05/12/17 20:49 ng Penicillins Allergy Hives Verified 05/12/17 20:49 prednisone Allergy Itching Verified 05/12/17 20:49 sulfamethoxazole Allergy Hives Verified 05/12/17 20:49 [From Bactrim] trimethoprim [From Bactrim] Allergy Hives Verified 05/12/17 20:49 cefdinir AdvReac Vomiting Verified 06/10/17 10:53 Procedures/tests Complete & Pending: Procedures Performed prior 72 hours Category Date Time Status ECG 12 lead ECG [ECG] AM 0600 Y 06/16/17 06:00 Completed ECG 12 lead ECG [ECG] Routine Y 06/15/17 22:16 Completed Date of admission: 06/15/17 21:59 Primary care physician: Maurisio Ward MD Consults: 06/15/17 22:52 Consult to Nurse Navigator [CONS] Routine Comment: 06/16/17 14:56 Consult to Psychiatry [CONS] Routine Consulting Provider: Psychiatry Bri Reason for Consult: Readmission 2/2 to episode related to anxiety Time Notified: 14:58 Call Completed: Yes 06/16/17 19:43 Consult to Cardiology [CONS] Routine Comment: Consulting Provider: Cardiology Bri Reason for Consult: Readmission - palpitations, chest discomfort Time Notified: 15:00 Call Completed: Yes Discharging clinician: Yumiko Rowe Anticipated date of discharge: 06/17/17 - Patient Status Disposition: Transfer Psychiatric Hosp Condition: Good Functional capacity at discharge: independent ambulation Overall status at discharge: patient is progressing back to baseline - Discharge Instructions Instructions: Atrial Fibrillation (DC), Palpitations (DC), Mood Disorders (DC) , Depression (DC) Follow Up With: Maurisio Ward MD [Primary Care Provider] - 06/23/17 9:45 am - Diet and Activity Activity: increase activity as tolerated Diet: advance to your usual diet Interval History: Pt state she is still feeling anxious. Experiences what she feels are "palpitations" and chest tightness. Appears comfortable during the interview and did not appear in acute distress during encounter. She asked if she could get an additional 0.5 mg Ativan at end of encounter with this resident MD. Replied that Psychiatry will review all of patient's medication once she is admitted to psych unit shortly. Pt was amenable to plan and transfer. Hospital course: Ms. Strong is a 52 year old female with a past psychiatric history of anxiety, bipolar depression, COPD and CAD s/p [facility] in 01/2016 who presented for chest pain. She had been recently discharged 2 days ago for exacerbation of COPD. Chest pain did not worsen with exertion, did not relieve with wrestle and described as pleuritic in nature.Constant left neck pain reproducible on palpation. Given pt's CAD, pt was admitted with rule out for ACS. Troponin negative x 2. No significant EKG changes. Negative stress test 05/2016. Carotid dopplers in 08/2016 60-79% right internal carotid stenosis and 40-59% left internal carotid stenosis with recommendations to recheck in 1 year.Echo on demonstrated preserved EF. Holter 02/2016 showed rare PVCs and PACs. Tele reviewed--maintaining SR.Given pt's history of anxiety and aforementioned procedure results, chest pain was suspect to be due to anxiety component as she has been off her psych meds. Pt was contineud on ASA and Statin,continue BB, and Imdur. Psych was placed on consult for management of anxiety. Following patient's medical clearance and follow up of pt's recent discharge for COPD exacerbation, she was was admitted to the psychiatric unit for further safety and stabilization and to get back on her medications due to her intense mood swings and not feeling safe to go home due to these mood swings. - Time Spent with Patient Total time spent providing and/or coordinating discharge services: - Constitutional Vitals: Temp Pulse Resp BP Pulse Ox 98.1 F 88 17 142/82 97 06/17/17 11:56 06/17/17 11:56 06/17/17 11:56 06/17/17 11:56 06/17/17 11:56 General appearance: Present: cooperative, A&O X 3, no acute distress, answers questions appropriately - Head Head exam: Present: atraumatic, normocephalic - Respiratory Respiratory exam: Present: CTAB. Absent: accessory muscle use, rales, rhonchi, wheezes - Cardiovascular Cardiovascular exam: Present: RRR, +S1, +S2. Absent: diastolic murmur, gallop, rubs, systolic murmur - Expanded Lower Extremities Exam Lower Leg exam: Present: full ROM, normal inspection. Absent: ecchymosis, swelling, tenderness <Ray Lepe - Last Filed: 06/17/17 18:50> Date of Encounter: 06/17/17 - Discharge Diagnosis (1) Acute and chronic respiratory failure with hypoxia Status: Acute (2) COPD (chronic obstructive pulmonary disease) Status: Acute Qualifiers: COPD type: COPD with acute exacerbation Qualified Code(s): J44.1 - Chronic obstructive pulmonary disease with (acute) exacerbation (3) SNEHA (obstructive sleep apnea) Priority: Secondary Status: Chronic (4) Tobacco abuse Priority: Secondary Status: Chronic (5) Palpitations Status: Acute (6) Anxiety Status: Chronic Procedures/tests Complete & Pending: Procedures Performed prior 72 hours Category Date Time Status ECG 12 lead ECG [ECG] AM 0600 Y 06/16/17 06:00 Completed ECG 12 lead ECG [ECG] Routine Y 06/15/17 22:16 Completed Date of admission: 06/15/17 21:59 Primary care physician: Maurisio Ward MD Consults: 06/15/17 22:52 Consult to Nurse Navigator [CONS] Routine Comment: 06/16/17 14:56 Consult to Psychiatry [CONS] Routine Consulting Provider: Psychiatry Bri Reason for Consult: Readmission 2/2 to episode related to anxiety Time Notified: 14:58 Call Completed: Yes 06/16/17 19:43 Consult to Cardiology [CONS] Routine Comment: Consulting Provider: Cardiology [place] Reason for Consult: Readmission - palpitations, chest discomfort Time Notified: 15:00 Call Completed: Yes Hospital course: Ms. Strong is a 52 year old female - Time Spent with Patient Total time spent providing and/or coordinating discharge services: - Constitutional Vitals: Temp Pulse Resp BP Pulse Ox 98.1 F 88 17 142/82 97 06/17/17 11:56 06/17/17 11:56 06/17/17 11:56 06/17/17 11:56 06/17/17 11:56 - Attending Attestation I examined this patient and my medical decision-making was reviewed with the Resident Physician on 06/17/17. I agree with the documented findings, disposition and treatment plan as described except to the extent set forth below. Ms. Strong has been in observation for palpitations and chest discomfort. She is afebrile with stable vitals. She is to be discharged to inpatient psych for anxiety. Exam Tearful. Heart reg No wheeze Abd soft Plan D/C to inpatient psych.
--- NOTE | 2017-06-17 16:29 | Electrocardiograph Report ---
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
== END 2017-06-17 16:03 ==
LOC: 3BNU → SUATTDRO 21:59
PROVIDERS: ADMIT Internal Medicine Hematology & Oncology; ATTEND Internal Medicine

== ENCOUNTER 2017-06-17 15:42 | Inpatient (IN) ==
[2017-06-17] MEDS ORDERED: Acetaminophen 325 MG TABLET PO PRN (17:24)
[2017-06-17] MEDS ORDERED: *HR* LORazepam 1 MG TABLET PO PRN (17:24)
[2017-06-17] MEDS ORDERED: Haloperidol Lactate 5 MG/ML VIAL IM PRN (17:24)
[2017-06-17] MEDS ORDERED: MOM Conc 10 ML UD.LIQ PO PRN (17:24)
[2017-06-17] MEDS ORDERED: traZODone 50 MG TABLET PO PRN (17:24)
[2017-06-17] MEDS ORDERED: Mag Hydrox/Al Hydrox/Simeth 30 ML UDC PO PRN (17:24)
[2017-06-17] MEDS ORDERED: *HR* LORazepam 2 MG/ML VIAL IM PRN (17:24)
[2017-06-17] MEDS ORDERED: traMADol 50 MG TABLET PO PRN (17:31)
[2017-06-17] MEDS ORDERED: Albuterol Sulfate 2 MG/5 ML UDC PO PRN (17:31)
[2017-06-17] MEDS ORDERED: Nitroglycerin 0.4 MG TAB.SUBL SL PRN (17:31)
[2017-06-17] MEDS ORDERED: Diphenoxylate/Atropine 1 TAB TABLET PO PRN (17:31)
[2017-06-17] MEDS ORDERED: Dextrose Gel 15 GM PO PRN ×2 (17:49)
[2017-06-17] MEDS ORDERED: *HR* Dextrose 50 % in Water (Syg) 50 ML SYRINGE IVP PRN (17:49)
[2017-06-17] MEDS ORDERED: D5% in Water 1,000 ML IVC PRN (17:49)
[2017-06-17] MEDS ORDERED: NON-FORMULARY MEDICATION 1 EACH EACH (Oxygen [Oxygen] 2 L) NS SCH (21:00)
[2017-06-17] MEDS ORDERED: traZODone 50 MG TABLET PO SCH (21:00)
[2017-06-17] MEDS: Insulin DETEMIR 100 UNIT/ML X5UNITS SQ SCH (21:37)
[2017-06-17] MEDS: Gabapentin 300 MG CAPSULE PO SCH (21:38)
[2017-06-17] MEDS: Famotidine 20 MG TABLET PO SCH (21:38)
[2017-06-17] MEDS: *HR* LORazepam 0.5 MG TABLET PO SCH (21:40)
[2017-06-17] MEDS: Ammonium Lactate 30 APPL/225 GM BOTTLE TP SCH (21:41)
[2017-06-17] MEDS: Clotrimazole/Betameth Dip CRM 45 APPL/45 GM TUBE TP SCH (21:41)
[2017-06-17] MEDS: Levalbuterol 1 PUFF INHALER IH SCH (21:42)
[2017-06-17] MEDS: Insulin LISPRO 300 UNITS/3 ML VIAL SQ SCH (21:46)
[2017-06-17] MEDS: hydrOXYzine pamoate 25 MG CAPSULE PO PRN (22:41)
[2017-06-17] MEDS: Budesonide/Formoterol 160/4.5 MDI IH SCH (22:42)
[2017-06-18] MEDS: Tiotropium 18 MCG inhalation IH SCH (07:05)
[2017-06-18] MEDS: Insulin LISPRO 300 UNITS/3 ML VIAL SQ SCH ×4 (07:41→20:31)
[2017-06-18] MEDS: Ammonium Lactate 30 APPL/225 GM BOTTLE TP SCH ×2 (08:39→20:37)
[2017-06-18] MEDS: Gabapentin 300 MG CAPSULE PO SCH (08:51)
[2017-06-18] MEDS: Famotidine 20 MG TABLET PO SCH ×2 (08:51→20:35)
[2017-06-18] MEDS: Nicotine 14 MG PATCH.TD24 TD SCH (08:53)
[2017-06-18] MEDS: Levalbuterol 1 PUFF INHALER IH SCH ×2 (08:54→20:34)
[2017-06-18] MEDS ORDERED: predniSONE 20 MG TABLET PO SCH (09:00)
[2017-06-18] MEDS: Clotrimazole/Betameth Dip CRM 45 APPL/45 GM TUBE TP SCH ×2 (09:07→20:37)
[2017-06-18] MEDS: Budesonide/Formoterol 160/4.5 MDI IH SCH ×2 (09:55→21:14)
--- NOTE | 2017-06-18 11:18 | Psychiatry History & Physical ---
Date of Encounter: 06/18/17 Time of Encounter: 10:45 History of Present Illness Patient Stated Chief Complaint: "I am here for depression and anxiety and hopelessness" Medicare Admission Attestation: For traditional Medicare patients the provided hospital inpatient services are reasonable and necessary and in the case of services not specified as inpatient -only under 42 CFR 419.22 (n), that they are appropriately provided as inpatient services in accordance 42 CFR 412.3. For Critical Access Hospital the patient may reasonably be expected to be discharged or transferred to a hospital within 96 hours after admission to the Critical Access Hospital. Admitted From: Direct Admit Plans for Post Hospital Care: Home History of Present Illness: Ms. Strong is a 52 year old female who [facility] A psych consult was given to assess patient for depression and anxiety and safety. Patient was seen by Dr. Rae she reported a long history of depression. Patient reported that she has been struggling from depression for last 20+ years. She has been off her medication for 7 months. She reported that she has been diagnosed with bipolar disorder. She did endorse some brief hypomanic episodes off and on in the last 2 decades. Patient reported that since last few weeks she has been noticing a relapse of her depression with low mood and anhedonia hopeless helpless feelings. She is also endorsing anxiety restlessness mood swings irritability and panic attacks. Patient told Dr. Arana that she does not feel safe to go home due to these fluctuations in her mood and fears that she might end up hurting herself. She since she was unable to contract for safety and was depressed and anxious and was posing a threat to herself it was decided to transfer her to psychiatric unit for further stabilization than for safety concerns. Past Med Surg Social Fam HX - Past Medical History Medical history: arthritis, atrial fibrillation, COPD, coronary artery disease, CVA, diabetes, GERD, hyperlipidemia, hypertension, migraine, myocardial infarction, peripheral artery disease, TIA, other - Past Psychiatric History Psychiatric history: Reports: bipolar, depression, prior suicide attempt, previous psychiatric hospitalization Past psychiatric history details: Patient has 2 prior suicide attempts and prior psych hospitalizations. Last hospitalization was in 2007. She has been diagnosed with bipolar disorder. She was receiving outpatient treatment but has been off all her medications since last 7 months. Family psychiatric history: Yes Family Psychiatric History Details: Aunt suffers from depression and has attempted suicide in the past. Family History of Suicide: Attempted - Past Surgical History Surgical History: angioplasty/stent, appendectomy, cholecystectomy, knee replacement, other - Social History Smoking Status: Current every day smoker Smokeless Tobacco Status: No Alcohol use: rarely Drug use: none Occupational status: disabled Current living situation: Home - Independent Activity Level: Independent ambulation Recent Out of Country Travel Within the Last 8 Weeks: No Exposure or Possible Exposure to Illness During Travel: No Additional social history: Patient is with her second for last 7 years. She reported wonderful marriage. She has 2 grownup children and 3 grandkids. She reported good and supportive relationship with her family members. She resides with her and is currently on Social Security disability. She denies any legal issues. - Family History Mother Living Status: Hx Family Cardiac Disorders: Yes Hx Family Respiratory Disorders: Yes Hx Family Cancer: Yes Hx Family GI Disorders: No Hx Family Endocrine Disorder: Yes Hx Family Neuromuscular Disorders: No Hx Family Neurologic Disorders: Yes Hx Family HEENT Disorders: No Hx Family Autoimmune Disorders: No Medications & Allergies Albuterol Sulfate 3 ml IH Q6H PRN 12/30/16 [History] Budesonide/Formoterol 160/4.5 [Symbicort 160/4.5] 2 puff IH BIDR 12/30/16 [ History] Clotrimazole/Betameth Dip CRM [Lotrisone CRM] 1 appl TP BID 12/30/16 [History] Insulin ASPART [NovoLOG] 0 unit SQ TIDWM PRN 12/30/16 [History] Insulin Glargine,Hum.rec.anlog [Lantus Solostar] 36 unit SQ HS 12/30/16 [History ] Levalbuterol Tartrate [Xopenex Hfa] 1 puff IH BID 12/30/16 [History] Nitroglycerin [Nitrostat] 0.4 mg SL Q5M PRN 12/30/16 [History] Ranitidine HCl [Acid Web Pressman] 150 mg PO BID 12/30/16 [History] Tiotropium [Spiriva] 18 mcg IH 0700 12/30/16 [History] Ammonium Lactate [Amy-Hydrolac] 1 appl TP BID 03/15/17 [History] Calcium Polycarbophil [Fibercon] 625 mg PO TID PRN 03/15/17 [History] Oxygen 2 l NS HS 03/15/17 [History] Diphenoxylate/Atropine [Lomotil 2.5 mg/0.025 mg] 1 each PO QID PRN 06/10/17 [ History] Tramadol HCl [Ultram] 50 mg PO TID PRN 06/10/17 [History] LORazepam [Ativan] 0.5 mg PO HS #30 tablet 06/13/17 [Rx] Metoprolol [Lopressor] 12.5 mg PO BID #60 tab 06/13/17 [Rx] predniSONE [PredniSONE] 40 mg PO DAILY #10 tablet 06/13/17 [Rx] Gabapentin [Neurontin] 300 mg PO TID 06/15/17 [History] traZODone [TraZODone] 50 mg PO HS 06/17/17 [History] 3 Allergy/AdvReac Type Severity Reaction Status Date / Time baclofen Allergy Itching Verified 05/12/17 20:49 ciprofloxacin [From Cipro] Allergy Hives Verified 06/10/17 10:53 latex Allergy Rash Verified 05/12/17 20:49 Oxycodone Allergy Hallucinati Verified 05/12/17 20:49 ng Penicillins Allergy Hives Verified 05/12/17 20:49 prednisone Allergy Itching Verified 05/12/17 20:49 sulfamethoxazole Allergy Hives Verified 05/12/17 20:49 [From Bactrim] trimethoprim [From Bactrim] Allergy Hives Verified 05/12/17 20:49 cefdinir AdvReac Vomiting Verified 06/10/17 10:53 Review of Systems Psychiatric: Reports: depression, anxiety, abnormal sleep pattern, anhedonia, difficulty concentrating, hopelessness, mood swings, panic attacks Mental Status Exam Patient orientation: Yes Person, Yes Time, Yes Place Level of alertness: Alert Patient appearance: Unkempt, Disheveled Behavior: nervous, anxious, withdrawn Psychomotor activity: Slowed Eye contact: Maintains Eye Contact Mood description: Depressed, Anxious Affect description: congruent with mood, blunted, dysphoric Speech pattern: Normal rate, Normal rhythm, Normal tone Speech volume: Soft/Quiet Thought process: Linear, Goal Oriented Thought content: No Suicidal ideation, No Homicidal ideation, No Overt delusions Perceptual disturbances: No Auditory hallucinations, No Visual hallucinations Attention span: Capable of Focused Attention Memory description: Grossly Intact Patient reliability: Reliable Historian Intelligence estimate: Average Judgment: Fair Insight: Partial Additional Findings: Although patient is denying suicidal active suicidal ideation but is endorsing hopelessness and helplessness and is unable to contract for safety off the unit. Exam - HEENT Head exam IM: Present: atraumatic Eye exam IM: Present: normal appearance ENT exam IM: Present: mucous membranes moist, normal exam - Neurological Neurological exam IM: Present: alert, CN II-XII intact, normal gait, oriented X3 , reflexes normal, no focal deficits, strengths equal and symetr throughout. Absent: motor sensory deficit - Respiratory Respiratory exam IM: Absent: respiratory distress - GI/Abdominal GI/Abdominal exam IM: Present: normal bowel sounds, soft. Absent: tenderness - Extremities Extremities exam IM: Present: normal inspection - Skin Skin exam IM: Present: normal color Results - Vital Signs Vital signs: Temp Pulse Resp BP Pulse Ox 97.7 F 75 16 112/71 98 06/18/17 09:55 06/18/17 09:55 06/18/17 09:55 06/18/17 09:55 06/17/17 22:46 - Labs Labs: Laboratory Last Values POC Glucose 104 (58-89) H 06/18/17 07:39 Assessment and Plan (1) Bipolar 2 disorder Current visit: Yes Status: Acute Plan: Admit inpatient for safety and stabilization, Close observation, Suicide Precautions per unit protocol, Encourage participation in unit milieu, Group Therapy, Monitor sleep, Monitor appetite Additional Plan: After reviewing the symptom diagnosis treatment on an extending that is manifested side effects alternative to treatment consequences of no treatment and getting informed consent from the patient is decided to increase the patient 's Neurontin to 400 mg 3 times a day to help with her mood stabilization and anxiety and restlessness. We will also initiate patient on Prozac 20 mg daily for her depression. We will continue patient's Vistaril and Ativan as needed and start the patient on Restoril 30 mg at bedtime when necessary for insomnia. Risks, benefits, side effects, alternatives discussed w/pt: Yes Patient agreeable to treatment: Yes Plans for Post Hospital Care: Home Estimated Length of Stay (Days): 3
[2017-06-18] MEDS: FLUoxetine 20 MG CAPSULE PO SCH (12:34)
[2017-06-18] MEDS: Gabapentin 400 MG CAPSULE PO SCH ×2 (15:16→20:35)
[2017-06-18] MEDS: hydrOXYzine pamoate 25 MG CAPSULE PO PRN (17:43)
[2017-06-18] MEDS: Insulin DETEMIR 100 UNIT/ML X5UNITS SQ SCH (20:33)
[2017-06-18] MEDS: *HR* LORazepam 0.5 MG TABLET PO SCH (20:35)
[2017-06-18] MEDS ORDERED: Temazepam 15 MG CAPSULE PO SCH (21:00)
[2017-06-19] MEDS: Tiotropium 18 MCG inhalation IH SCH (07:04)
[2017-06-19] MEDS: Insulin LISPRO 300 UNITS/3 ML VIAL SQ SCH ×4 (08:02→21:49)
[2017-06-19] MEDS: Nicotine 14 MG PATCH.TD24 TD SCH (08:47)
[2017-06-19] MEDS: FLUoxetine 20 MG CAPSULE PO SCH (08:48)
[2017-06-19] MEDS: Famotidine 20 MG TABLET PO SCH ×2 (08:48→20:38)
[2017-06-19] MEDS: Gabapentin 400 MG CAPSULE PO SCH (08:48)
[2017-06-19] MEDS: predniSONE 20 MG TABLET PO SCH (08:50)
[2017-06-19] MEDS: Levalbuterol 1 PUFF INHALER IH SCH ×2 (08:51→20:41)
[2017-06-19] MEDS: Clotrimazole/Betameth Dip CRM 45 APPL/45 GM TUBE TP SCH ×2 (08:55→20:39)
[2017-06-19] MEDS: Ammonium Lactate 30 APPL/225 GM BOTTLE TP SCH ×2 (08:55→20:39)
[2017-06-19] MEDS: Budesonide/Formoterol 160/4.5 MDI IH SCH ×2 (10:00→21:51)
--- NOTE | 2017-06-19 11:36 | Psychiatry Progress Note ---
Date of Encounter: 06/19/17 Time of Encounter: 11:23 Subjective Interval history: Patient seen and interviewed. Reporting of not much change from yesterday. Still endorsing anxiety panic nervousness and restlessness. Reporting of poor sleep last night. Patient took the Restoril and required an additional Seroquel 100 mg at bedtime after which he slept. Reporting of some hopeless feelings. Feels she is not ready to go home today. Requesting some med changes to address her ongoing anxiety and restlessness and panic. Patient was encouraged to attend groups participate in activities and learn coping skills and work on a safety plan. Review of Systems Psychiatric: Reports: depression, anxiety, abnormal sleep pattern, anhedonia, difficulty concentrating, hopelessness, mood swings, panic attacks Objective: Exam Patient orientation: Yes Person, Yes Time, Yes Place Level of alertness: Alert Patient appearance: Unkempt, Disheveled Behavior: nervous, anxious Psychomotor activity: Slowed Eye contact: Maintains Eye Contact Mood description: Depressed, Anxious Affect description: constricted, dysphoric Speech pattern: Normal rate, Normal rhythm, Normal tone Speech volume: Normal Thought process: Linear, Goal Oriented Thought content: No Suicidal ideation, No Homicidal ideation, No Overt delusions Perceptual disturbances: No Auditory hallucinations, No Visual hallucinations Judgment: Fair Insight: Partial Results - Vital Signs Vital Signs: Temp Pulse Resp BP Pulse Ox 97.3 F L 78 16 113/67 98 06/19/17 08:29 06/19/17 08:29 06/19/17 08:29 06/19/17 08:29 06/17/17 22:46 - Labs Labs: Laboratory Results - last 24 hr 06/18/17 06/18/17 06/18/17 11:47 16:28 20:21 POC Glucose 140 H 233 H 185 H 06/19/17 06/19/17 07:58 11:14 POC Glucose 101 H 140 H Assessment and Plan (1) Bipolar 2 disorder Current visit: Yes Status: Acute Plan: Continue hospitalization, Close observation, Suicide Precautions per unit protocol, Encourage participation in unit milieu, Group Therapy, Monitor sleep, Monitor appetite Additional Plan: Will increase patient's Vistaril and a schedule it from 25 mg 3 times a day when necessary to 50 mg 3 times a day as scheduled. We will also increase patient's Neurontin from 400 mg 3 times a day to 600 mg 3 times a day. We will discontinue temazepam and start the patient on Seroquel 100 mg at bedtime for insomnia and as an adjunct treatment for depression. Risks, benefits, side effects, alternatives discussed w/pt: Yes Patient agreeable to treatment: Yes
[2017-06-19] MEDS ORDERED: hydrOXYzine pamoate 25 MG CAPSULE PO ONE (12:50)
[2017-06-19] MEDS: Gabapentin 300 MG CAPSULE PO SCH ×2 (15:45→20:36)
[2017-06-19] MEDS: hydrOXYzine pamoate 25 MG CAPSULE PO SCH ×2 (15:46→20:38)
[2017-06-19] MEDS: *HR* LORazepam 0.5 MG TABLET PO SCH (20:37)
[2017-06-19] MEDS: Insulin DETEMIR 100 UNIT/ML X5UNITS SQ SCH (21:53)
[2017-06-20] MEDS: Tiotropium 18 MCG inhalation IH SCH (07:23)
[2017-06-20] MEDS: Insulin LISPRO 300 UNITS/3 ML VIAL SQ SCH ×2 (08:44→11:12)
[2017-06-20] MEDS: Clotrimazole/Betameth Dip CRM 45 APPL/45 GM TUBE TP SCH (08:45)
[2017-06-20] MEDS: Ammonium Lactate 30 APPL/225 GM BOTTLE TP SCH (08:45)
[2017-06-20] MEDS: hydrOXYzine pamoate 25 MG CAPSULE PO SCH (08:47)
[2017-06-20] MEDS: Gabapentin 300 MG CAPSULE PO SCH (08:47)
[2017-06-20] MEDS: Famotidine 20 MG TABLET PO SCH (08:48)
[2017-06-20] MEDS: predniSONE 20 MG TABLET PO SCH (08:48)
[2017-06-20] MEDS: FLUoxetine 20 MG CAPSULE PO SCH (08:48)
[2017-06-20] MEDS: Nicotine 14 MG PATCH.TD24 TD SCH (08:51)
[2017-06-20] MEDS: Levalbuterol 1 PUFF INHALER IH SCH (08:52)
[2017-06-20] MEDS ORDERED: FLUoxetine 20 MG CAPSULE PO SCH (09:28)
--- NOTE | 2017-06-20 09:42 | Discharge Summary ---
Date of Encounter: 06/20/17 Time of Encounter: 09:00 Diagnosis - Discharge Diagnosis (1) Bipolar 2 disorder Status: Acute (2) Anxiety Status: Chronic Medications - Discharge Medications Prescriptions: FLUoxetine HCl [Prozac] 40 mg PO DAILY #60 hydrOXYzine pamoate [HydrOXYzine Pamoate] 50 mg PO TID #90 Quetiapine Fumarate [Seroquel] 200 mg PO HS #60 tab Albuterol Sulfate 3 ml IH Q6H PRN 12/30/16 [History] Budesonide/Formoterol 160/4.5 [Symbicort 160/4.5] 2 puff IH BIDR 12/30/16 [ History] Clotrimazole/Betameth Dip CRM [Lotrisone CRM] 1 appl TP BID 12/30/16 [History] Insulin ASPART [NovoLOG] 0 unit SQ TIDWM PRN 12/30/16 [History] Insulin Glargine,Hum.rec.anlog [Lantus Solostar] 36 unit SQ HS 12/30/16 [History ] Levalbuterol Tartrate [Xopenex Hfa] 1 puff IH BID 12/30/16 [History] Nitroglycerin [Nitrostat] 0.4 mg SL Q5M PRN 12/30/16 [History] Ranitidine HCl [Acid Instructor [employer]] 150 mg PO BID 12/30/16 [History] Tiotropium [Spiriva] 18 mcg IH 0700 12/30/16 [History] Ammonium Lactate [Amy-Hydrolac] 1 appl TP BID 03/15/17 [History] Calcium Polycarbophil [Fibercon] 625 mg PO TID PRN 03/15/17 [History] Oxygen 2 l NS HS 03/15/17 [History] Diphenoxylate/Atropine [Lomotil 2.5 mg/0.025 mg] 1 each PO QID PRN 06/10/17 [ History] Tramadol HCl [Ultram] 50 mg PO TID PRN 06/10/17 [History] LORazepam [Ativan] 0.5 mg PO HS #30 tablet 06/13/17 [Rx] Metoprolol [Lopressor] 12.5 mg PO BID #60 tab 06/13/17 [Rx] predniSONE [PredniSONE] 40 mg PO DAILY #10 tablet 06/13/17 [Rx] FLUoxetine HCl [Prozac] 40 mg PO DAILY #60 06/20/17 [Rx] Quetiapine Fumarate [Seroquel] 200 mg PO HS #60 tab 06/20/17 [Rx] hydrOXYzine pamoate [HydrOXYzine Pamoate] 50 mg PO TID #90 06/20/17 [Rx] 3 Allergy/AdvReac Type Severity Reaction Status Date / Time baclofen Allergy Itching Verified 05/12/17 20:49 ciprofloxacin [From Cipro] Allergy Hives Verified 06/10/17 10:53 latex Allergy Rash Verified 05/12/17 20:49 Oxycodone Allergy Hallucinati Verified 05/12/17 20:49 ng Penicillins Allergy Hives Verified 05/12/17 20:49 prednisone Allergy Itching Verified 05/12/17 20:49 sulfamethoxazole Allergy Hives Verified 05/12/17 20:49 [From Bactrim] trimethoprim [From Bactrim] Allergy Hives Verified 05/12/17 20:49 cefdinir AdvReac Vomiting Verified 06/10/17 10:53 Provider Date of admission: 06/17/17 15:42 Discharging clinician: Barb Guzman Assessment and Plan - Patient/Caregiver Discharge Instructions Activity: resume usual activities as tolerated Diet: diabetic diet - Follow up Plan Follow up with: [facility] [Outside] - 07/13/17 10:00 am (The above appointment is with Nikki Castillo, PhD, for mental health counseling services. You will also see Dr. Guzman, for outpatient psychiatric assessment and medication management services on 08/16/2017 at 9:00am. Please arrive 10 minutes early to all appointments to complete the check-in process. Please bring your insurance card and photo ID. If you are unable to keep this appointment, 24 hour business notice of cancellation is expected. The above appointment(s) reflects first availability. You may contact the office regularly to check for cancellations that may allow you to be seen sooner. ) Functional capacity at discharge: independent ambulation Overall status at discharge: Stable Disposition: Home, Self-Care Hospital Course Hospital course: Ms. Strong is a 52 year old female with multiple medical problems who presented to the hospital with chest pain and was evaluated by psychiatry and admitted to for mood and anxiety symptoms. Patient was placed on suicide precautions and close observation per unit protocol. She was incorporated into the therapeutic milieu and offer group and individual as well as recreational therapy. She was also offered psychoeducational materials for therapy. She was placed on suicide precautions and close observation per unit protocol. Patient was placed on hydroxyzine and her gabapentin was increased to help with anxiety. She was also having issues with sleep and Seroquel was started and titrated to 200 mg. She was also started on Prozac. Throughout the course of hospital stay the patient reported improvement in her mood. Her anxiety was improved slightly with occasional panic attacks that were more manageable. Patient still reported some issues with sleep despite the Seroquel but states that overall things are much improved. She did verbalize that she is willing to go home and continue to work on titration of medications as an outpatient. She would like to follow-up at the counseling center. At the time of discharge patient denied suicidal or homicidal ideation, intent, or plan. We discussed that she should return to the hospital with worsening of symptoms or call the office. Patient verbalized understanding. She is discharged in stable condition. - Time Spent with Patient Total time spent providing and/or coordinating discharge services: Greater than 30 minutes Quality - Multiple Antipsychotics Patient discharged on 2 or more antipsychotic medications: No Procedures - Procedures Procedures: Medication Management, Crisis Stabilization, Supportive Therapy, Group Therapy, Psychoeducational Therapy Mental Status Exam - Mental Status Exam Patient orientation: Yes Person, Yes Time, Yes Place Level of alertness: Alert Patient appearance: Appropriate, Well Groomed Behavior: calm, cooperative Psychomotor activity: Normal Eye contact: Maintains Eye Contact Mood description: Euthymic/stable Affect description: congruent with mood, full range Speech pattern: Normal rate, Normal rhythm, Normal tone Speech Volume: Normal Thought process: Linear, Goal Oriented Thought Content: No Suicidal ideation, No Homicidal ideation, No Overt delusions Perceptual Disturbances: No Auditory hallucinations, No Visual hallucinations Judgment: Limited Insight: Partial
[2017-06-20] MEDS: Budesonide/Formoterol 160/4.5 MDI IH SCH (10:10)
[2017-06-20 10:23] VITALS: BP 116/63
== END 2017-06-20 12:00 | disposition home or self-care (01) | DRG 885 ==
LOC: 1ANU 15:42 → SUATTDRO 15:42
PROVIDERS: ADMIT Psychiatry & Neurology Psychiatry; ATTEND Student in an Organized Health Care Education/Training Program

== ENCOUNTER 2017-07-20 12:14 | Observation (INO) ==
[2017-07-20] MEDS ORDERED: Ipratropium/Albuterol Neb 3 ML IH ONE (12:39)
[2017-07-20] MEDS ORDERED: Aspirin 325 MG TABLET PO ONE ×2 (12:41→16:57)
--- NOTE | 2017-07-20 12:44 | Emergency Department Note ---
Disposition Clinical Impression: Acute exacerbation of chronic obstructive airways disease, Tobacco abuse Chest pain Qualifiers: Chest pain type: unspecified Qualified Code(s): R07.9 - Chest pain, unspecified Disposition: Admitted As Inpatient Condition: Undetermined Referrals: Maurisio Ward MD [Primary Care Provider] - Forms: ED Satisfaction Letter Time of Disposition: 14:00 Chest Pain HPI - General Chief Complaint: ED Chest Pain Stated Complaint: ANAMARIA,Back & left arm pain Time Seen by Provider: 07/20/17 12:31 Source: patient, family Mode of arrival: wheelchair Limitations: no limitations Vital Signs Reviewed: Yes Nursing Notes Reviewed: Yes - History of Present Illness HPI Narrative: 52-year-old female with history of DC, CVA, COPD arrives to [facility] emergency department with complaint of dyspnea and chest pressure with radiation to back and left upper extremity. The patient stated it started 2 days ago and has progressively worsened. The patient decided to come the emergency department when she was experiencing difficulty on ambulation due to shortness of breath. The patient states that she has been experiencing retrosternal chest pain radiating to the left side of her chest and left upper extremity and into her back. The patient denies any nausea. She denies any fevers, chills but does admit to a cough she says is chronic. The patient is in the room and using some accessory muscle use on respiration but is otherwise able to speak in full sentences. The patient is noted to not be hypoxic, or hypotensive. The patient does have a history of 3 cardiac stents. She states this does not feel like her previous DC. She denies any other complaints at this time. Pt complaint: chest pain Onset (ago): day(s) (2) Duration: constant Onset: during rest, during exertion Pain Location: substernal, left chest Severity: mild, moderate Severity scale (1-10): 7 Quality: tightness, heaviness Pain Radiation: LUE, back, neck Improves with: nothing Worsens with: nothing Associated symptoms: Reports: dyspnea, cough Treatments prior to arrival chest pain: none - Related Data On Oral Contraceptives: No Home Medications Medication Instructions Recorded Confirmed Budesonide/Formoterol 160/4.5 2 puff IH BIDR 12/30/16 07/20/17 [Symbicort 160/4.5] Insulin ASPART [NovoLOG] 2 - 10 unit SQ TIDWM PRN 12/30/16 07/20/17 Insulin Glargine,Hum.rec.anlog 36 unit SQ HS 12/30/16 07/20/17 [Lantus Solostar] Levalbuterol Tartrate [Xopenex Hfa] 1 puff IH BID 12/30/16 07/20/17 Nitroglycerin [Nitrostat] 0.4 mg SL AD PRN 12/30/16 07/20/17 Ranitidine HCl [Acid Telephone Service Representative] 150 mg PO BID 12/30/16 07/20/17 Tiotropium [Spiriva] 18 mcg IH DAILY 12/30/16 07/20/17 Calcium Polycarbophil [Fibercon] 625 mg PO DAILY 03/15/17 07/20/17 Oxygen 2 l NS HS 03/15/17 07/20/17 Diphenoxylate/Atropine [Lomotil 1 tab PO QID PRN 06/10/17 07/20/17 2.5 mg/0.025 mg] Gabapentin [Neurontin] 300 mg PO TID 06/23/17 07/20/17 Atorvastatin [Lipitor] 40 mg PO HS 07/03/17 07/20/17 Ipratropium/Albuterol Neb [Duoneb] 3 ml IH Q6HR 07/03/17 07/20/17 HYDROcodone/Acet 5/325 mg [Callahan 1 tab PO Q8H PRN 07/20/17 07/20/17 5-325 mg] Isosorbide MONOnitrate (24 HR) 60 mg PO DAILY 07/20/17 07/20/17 [Imdur] Lurasidone [Latuda] 40 mg PO DAILY 07/20/17 07/20/17 Quetiapine Fumarate [Seroquel] 200 mg PO HS 07/20/17 07/20/17 Warfarin [Coumadin] 3 mg PO DAILY 07/20/17 07/20/17 Previous Rx's Medication Instructions Recorded LORazepam [Ativan] 0.5 mg PO HS #30 tablet 06/13/17 FLUoxetine HCl [Prozac] 40 mg PO DAILY #60 06/20/17 hydrOXYzine pamoate [HydrOXYzine 50 mg PO TID #90 06/20/17 Pamoate] Meclizine [Antivert] 12.5 mg PO TID PRN #90 tablet 07/06/17 Allergies Allergy/AdvReac Type Severity Reaction Status Date / Time baclofen Allergy Itching Verified 06/23/17 09:33 ciprofloxacin [From Cipro] Allergy Hives Verified 06/23/17 09:33 latex Allergy Rash Verified 06/23/17 09:33 Penicillins Allergy Hives Verified 06/23/17 09:33 prednisone Allergy Itching Verified 06/23/17 09:33 sulfamethoxazole Allergy Hives Verified 06/23/17 09:33 [From Bactrim] trimethoprim [From Bactrim] Allergy Hives Verified 06/23/17 09:33 cefdinir AdvReac Vomiting Verified 06/23/17 09:33 Oxycodone AdvReac Hallucinati Verified 07/03/17 13:05 ng All systems ED: reviewed and negative except as stated. Constitutional: Denies: fever, chills, weakness Cardiovascular: Reports: chest pain, dyspnea on exertion, edema Respiratory: Reports: cough (Chronic), dyspnea, wheezes. Denies: sputum production Gastrointestinal: Denies: abdominal pain, nausea, vomiting Neurological: Denies: headache, weakness, numbness, paresthesias, confusion Chest Pain PMH - Past Medical History Medical history: Reports: arthritis, asthma, atrial fibrillation, COPD, coronary artery disease, CVA, diabetes, GERD, hyperlipidemia, hypertension, migraine, myocardial infarction, peripheral artery disease, TIA, other Surgical history: Reports: angioplasty/stent, appendectomy, cholecystectomy, knee replacement, other Psychiatric history: Reports: anxiety, depression, prior suicide attempt, previous psychiatric hospitalization Prior Cardiac Testing/Procedures: Stenting HEAD OF SALES history: Reports: bilateral 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 - Social History Smoking Status: Current every day smoker Alcohol use: Reports: rarely Drug use: Reports: none Physical Exam - General Limitations: no limitations General appearance: alert, in distress (Mild respiratory) - Head Head exam: atraumatic, normocephalic, normal inspection - Eye Eye exam: Present: normal appearance, PERRL, EOMI - ENT ENT exam: normal exam, normal oropharynx, mucous membranes moist - Neck Neck exam: Present: normal inspection, full ROM, trachea midline - Chest Chest inspection: Present: normal inspection, symmetric chest wall rise - Respiratory Respiratory exam: Present: wheezes (On auscultation in bilateral lower lobes), accessory muscle use - Cardiovascular Cardiovascular exam: Present: regular rate, normal rhythm, normal heart sounds - Abdominal Exam Abdominal exam: Present: soft, Non-Tender. Absent: tenderness, distention, guarding, rebound, rigidity - Extremities Exam Extremities exam: Present: normal inspection, full ROM, pedal edema (1+ pitting) . Absent: tenderness - Neurological Exam Neurological exam: Present: alert, oriented X3 Course Vital Signs Temperature 98.3 F 07/20/17 12:18 Pulse Rate 101 07/20/17 12:18 Respiratory Rate 20 07/20/17 12:18 Blood Pressure 118/73 07/20/17 12:18 O2 Sat by Pulse Oximetry 96 07/20/17 12:18 Temperature 98.3 F 07/20/17 12:18 Pulse Rate 96 07/20/17 13:21 Respiratory Rate 20 07/20/17 13:21 Blood Pressure 109/83 07/20/17 13:21 O2 Sat by Pulse Oximetry 96 07/20/17 13:21 Oxygen Delivery Oxygen Delivery Nasal Cannula Chest Pain - MDM Narrative Medical decision making narrative: Patient's work-up in the ED demonstrates no acute findings. The patient's chest pain was relieved slightly with one sublingual nitroglycerin but her blood pressure dropped slightly. We will admit her IV fluids and placed nitroglycerin paste. The patient's EKG demonstrates no acute changes. The patient's wheezing improved with aerosols as well as her subjective work of breathing. Patient is resting comfortably at this time. We will admit the patient to the hospitalist, accepted by [facility] - Medical Records Medical records reviewed: Yes I reviewed the patient's medical records. - Lab Data Lab results reviewed: Yes I reviewed the patient's lab results. Result diagrams: 07/20/17 12:52 07/20/17 12:52 Lab Results 07/20/17 07/20/17 07/20/17 Range/Units 12:52 12:52 12:52 WBC 12.6 H (4.3-11.1) K/mcL RBC 4.65 (3.82-4.97) M/mcL Hgb 13.7 (11.5-15.4) g/dL Hct 40.9 (35.3-44.9) % MCV 88.0 (83.0-100.0) fL MCH 29.5 (28.0-33.3) pg MCHC 33.5 (31.6-35.5) g/dL RDW 13.7 (11.5-14.5) % Plt Count 202 (140-400) K/mcL MPV 9.3 L (9.4-12.4) fL Immature Gran % 1.3 (0-4) % Seg Neutrophils % 71.6 % Lymphocytes % 21.4 % Monocytes % 4.7 % Eosinophils % 0.5 % Basophils % 0.5 % Neutrophils # 9.1 H (1.6-8.9) K/mcL Lymphocytes # 2.7 (0.6-4.6) K/mcL Monocytes # 0.6 (0.0-1.3) K/mcL Eosinophils # 0.1 (0.0-0.6) K/mcL Basophils # 0.1 (0.0-0.2) K/mcL PT (9.4-12.1) Seconds INR APTT (26.0-36.0) Seconds Sodium 140 (136-145) mEq/L Potassium 3.8 (3.5-4.5) mEq/L Chloride 108 (98-109) mEq/L Carbon Dioxide 23 (19-29) mEq/L BUN 8 (7-20) mg/dL Creatinine 0.72 (0.57-1.11) mg/dL Est GFR ( Amer) > 60 (> 60) Est GFR (Non-Af Amer) > 60 (> 60) BUN/Creatinine Ratio 11 (6-26) Glucose 122 H (70-99) mg/dL Calculated Osmolality 290 (280-300) Calcium 9.1 (8.6-10.8) mg/dL Troponin I 0.00 (0-0.03) ng/mL B-Natriuretic Peptide (0-100) pg/mL 07/20/17 07/20/17 Range/Units 12:52 12:53 WBC (4.3-11.1) K/mcL RBC (3.82-4.97) M/mcL Hgb (11.5-15.4) g/dL Hct (35.3-44.9) % MCV (83.0-100.0) fL MCH (28.0-33.3) pg MCHC (31.6-35.5) g/dL RDW (11.5-14.5) % Plt Count (140-400) K/mcL MPV (9.4-12.4) fL Immature Gran % (0-4) % Seg Neutrophils % % Lymphocytes % % Monocytes % % Eosinophils % % Basophils % % Neutrophils # (1.6-8.9) K/mcL Lymphocytes # (0.6-4.6) K/mcL Monocytes # (0.0-1.3) K/mcL Eosinophils # (0.0-0.6) K/mcL Basophils # (0.0-0.2) K/mcL PT 11.1 (9.4-12.1) Seconds INR 1.0 APTT 32.3 (26.0-36.0) Seconds Sodium (136-145) mEq/L Potassium (3.5-4.5) mEq/L Chloride (98-109) mEq/L Carbon Dioxide (19-29) mEq/L BUN (7-20) mg/dL Creatinine (0.57-1.11) mg/dL Est GFR ( Amer) (> 60) Est GFR (Non-Af Amer) (> 60) BUN/Creatinine Ratio (6-26) Glucose (70-99) mg/dL Calculated Osmolality (280-300) Calcium (8.6-10.8) mg/dL Troponin I (0-0.03) ng/mL B-Natriuretic Peptide 67 (0-100) pg/mL - Radiology Data Radiology results reviewed: Yes I reviewed the patient's radiology results. - EKG Data EKG attestation: Yes I reviewed and interpreted this EKG. EKG results narrative: Heart rate 98 bpm. NC interval 166 ms. QTc 442 ms. Normal axis. Normal sinus rhythm with left bundle-branch block. EKG similar to EKG from 2016. No acute changes noted. Heart Score - Score History: Highly Suspicious EKG: Normal Age: 45-65 Risk Factors: Equal/Greater than 3 risk factor or history of atherosclerotic disease Troponin: Less than normal limit HEART Score Total: 5
[2017-07-20 13:03] LABS: Basophils # 0.1 K/mcL (0.0-0.2); Basophils % 0.5 %; Eosinophils # 0.1 K/mcL (0.0-0.6); Eosinophils % 0.5 %; Hematocrit 40.9 % (35.3-44.9); Hemoglobin 13.7 g/dL (11.5-15.4); Immature Granulocytes % 1.3 % (0-4); Lymphocytes # 2.7 K/mcL (0.6-4.6); Lymphocytes % 21.4 %; Mean Corpuscular HGB Conc 33.5 g/dL (31.6-35.5); Mean Corpuscular Hemoglobin 29.5 pg (28.0-33.3); Mean Platelet Volume 9.3 fL (9.4-12.4); Monocytes # 0.6 K/mcL (0.0-1.3); Monocytes % 4.7 %; Neutrophils # 9.1 K/mcL (1.6-8.9); Platelet Count 202 K/mcL (140-400); Red Blood Count 4.65 M/mcL (3.82-4.97); Red Cell Distribution Width 13.7 % (11.5-14.5); Segmented Neutrophils % 71.6 %
[2017-07-20 13:07] LABS: Prothrombin Time 11.1 Seconds (9.4-12.1)
[2017-07-20] MEDS ORDERED: Nitroglycerin 0.4 MG TAB.SUBL SL STA (13:08)
[2017-07-20 13:10] LABS: Activated Partial Thrombo Time 32.3 Seconds (26.0-36.0)
[2017-07-20 13:14] LABS: BUN/Creatinine Ratio 11 (6-26); Blood Urea Nitrogen 8 mg/dL (7-20); Calcium 9.1 mg/dL (8.6-10.8); Carbon Dioxide 23 mEq/L (19-29); Chloride 108 mEq/L (98-109); Glucose 122 mg/dL (70-99); Osmolality,Calculated 290 (280-300); Potassium 3.8 mEq/L (3.5-4.5); Sodium 140 mEq/L (136-145); eGFR For African Americans > 60 (> 60); eGFR For Non-African Americans > 60 (> 60)
[2017-07-20] MEDS ORDERED: *HR* Enoxaparin 100 MG/ML SYRINGE SQ STA (13:28)
--- NOTE | 2017-07-20 13:30 | Emergency Department Note ---
START Narrative - START START: I examined this patient and my medical decision-making was reviewed with the Resident Physician. I agree with the documented findings, disposition and treatment plan as described except to the extent set forth below. 52-year-old female presents with shortness of breath and chest pain. Patient is a history of COPD. Active smoker. Worse oxygen at night. Had chest pain this morning. Took 1 nitroglycerin here which relieved her pain. Pain started in the chest was in the arm was given nitroglycerin which relieved his symptoms. Admit for ACS and pulmonary evaluation.
[2017-07-20] MEDS ORDERED: 0.9 % Sodium Chloride 1,000 ML IVC ONE (13:52)
[2017-07-20] MEDS ORDERED: Nitroglycerin 1 INCH/GM PACKET TP ONE (13:53)
[2017-07-20] MEDS ORDERED: Ondansetron 4 MG/2 ML VIAL IVP PRN (16:34)
[2017-07-20] MEDS ORDERED: Naloxone 0.4 MG/ML INJ IVP PRN (16:34)
[2017-07-20] MEDS ORDERED: Diphenoxylate/Atropine 1 TAB TABLET PO PRN (16:36)
[2017-07-20] MEDS ORDERED: Nitroglycerin 0.4 MG TAB.SUBL SL PRN (16:36)
[2017-07-20] MEDS ORDERED: methylPREDNISolone 125 MG/2 ML VIAL IVP ONE (16:51)
[2017-07-20] MEDS ORDERED: Dextrose Gel 15 GM PO PRN ×2 (16:52)
[2017-07-20] MEDS ORDERED: *HR* Dextrose 50 % in Water (Syg) 50 ML SYRINGE IVP PRN (16:52)
[2017-07-20] MEDS ORDERED: D5% in Water 1,000 ML IVC PRN (16:52)
--- NOTE | 2017-07-20 17:10 | Internal Med History&Physical ---
Date of Encounter: 07/20/17 Time of Encounter: 16:59 Assessment and Plan (1) Acute exacerbation of chronic obstructive airways disease Current visit: Yes Status: Acute Acute respiratory distress likely secondary to COPD exacerbation will start IV steroids bronchodilator support Levaquin 500mg PO qd O2 supplementation monitor O2 sat, goal O2 sat: 89-92% Will obtain CTA chest to rule PE given the acute onset of symptoms and current presentation. Pt received a dose of therapeutic Lovenox SQ in the ER. will start home dose of Coumadin, pharmacist to dose. (2) Chest pain Current visit: Yes Status: Acute Concern for PE, will obtain CTA chest given cardiac history, will trend serial TNI and admit to rule out ACS pt was recently admitted for the same presentation and her home dose of Imdur was increased and no further cardiac intervention was recommended serial TNI Nitro SL prn chest pain will continue tele monitoring Qualifiers: Chest pain type: unspecified Qualified Code(s): R07.9 - Chest pain, unspecified (3) Afib Current visit: No Status: Chronic Currently in sinus rhythm not on any medications for rate control given current INR, will do therapeutic dose of Lovenox to bridge with Coumadin continue tele monitoring. Qualifiers: Atrial fibrillation type: paroxysmal Qualified Code(s): I48.0 - Paroxysmal atrial fibrillation (4) CAD (coronary artery disease) Current visit: No Status: Chronic continue home meds as per cardiology evaluation from last hospitalization, pt was to be on ASA, BB , Statin, and Imdur however, patient only on Statin and Imdur at home will start pt on low dose BB and aspirin 81mg PO qd Qualifiers: Coronary Disease-Associated Artery/Lesion type: [place] artery [place] vs. transplanted heart: [place] heart Associated angina: angina presence unspecified Qualified Code(s): I25.10 - Atherosclerotic heart disease of [place] coronary artery without angina pectoris (5) CVA (cerebral vascular accident) Current visit: No Status: Chronic continue home meds Qualifiers: CVA mechanism: unspecified Qualified Code(s): I63.9 - Cerebral infarction, unspecified (6) Diabetes mellitus type 2 in obese Current visit: No Status: Chronic Hold oral antihyperglycemics sliding scale insulin algorithm continue home basal insulin monitor FS and BG ADA diet (7) Morbid obesity with BMI of 40.0-44.9, adult Current visit: No Status: Chronic (8) Tobacco abuse Current visit: Yes Status: Chronic smoking cessation counselling provided pt states she is trying to cut down refused nicotine replacement therapy Internal Medicine - H&P: HPI Chief complaint: shortness of breath/chest pain Admitted From: Home Plans for Post Hospital Care: Home History of present illness: Ms. Strong is a 52 year old female with PMH of Afib on anticoagulation, CAD, s/p tPA on 07/01/17, COPD on LTOT, DM, HTN, HLD who presented to the ER for evaluation of acute onset of shortness of breath and substernal pressure like chest pain with radiation to the left arm. She was recently discharged from [facility] (on 07/06/17)after being worked up for chest pain with the current presentation and UT was ruled out. Pt is an everyday smoker and reported of having difficulty breathing worsened with movement. She also reports of recently starting Coumadin (was previously on Eliquis-discontinued due to washburn issues) and was noted to have subtherapeutic INR. Pt is currently resting in bed and states her breathing is improved after receiving the nebulizer treatment in the ER. She states she still has some mild discomfort in her chest which improved after receiving nitroglycerin SL and duonebs. She reports of having a chronic cough and is an every day smoker. Denies any headache, weakness , abd pain, n/v, fever, or chills at this time. Pt is noted to be hypoxic, tachycardic, subtherapeutic INR-will obtain CTA chest to rule out PE Pt received therapeutic dose of Lovenox in the ER due to subtherpeutic INR. Social history: everyday smoker Code status: Full code Past Med Surg Social Fam HX - Past Medical History Medical history: arthritis, asthma, atrial fibrillation, COPD, coronary artery disease, CVA, diabetes, GERD, hyperlipidemia, hypertension, migraine, myocardial infarction, peripheral artery disease, TIA, other Psychiatric history: anxiety, depression, prior suicide attempt, previous psychiatric hospitalization - Past Surgical History Surgical History: angioplasty/stent, appendectomy, cholecystectomy, knee replacement, other - Social History Smoking Status: Current every day smoker Smokeless Tobacco Status: No Alcohol use: rarely Drug use: none - Family History Mother Living Status: Hx Family Cardiac Disorders: Yes Hx Family Respiratory Disorders: Yes Hx Family Cancer: Yes Hx Family GI Disorders: No Hx Family Endocrine Disorder: Yes Hx Family Neuromuscular Disorders: No Hx Family Neurologic Disorders: Yes Hx Family HEENT Disorders: No Hx Family Autoimmune Disorders: No Internal Medicine - H&P: Meds Budesonide/Formoterol 160/4.5 [Symbicort 160/4.5] 2 puff IH BIDR 12/30/16 [ History] Insulin ASPART [NovoLOG] 2 - 10 unit SQ TIDWM PRN 12/30/16 [History] Insulin Glargine,Hum.rec.anlog [Lantus Solostar] 36 unit SQ HS 12/30/16 [History ] Levalbuterol Tartrate [Xopenex Hfa] 1 puff IH BID 12/30/16 [History] Nitroglycerin [Nitrostat] 0.4 mg SL AD PRN 12/30/16 [History] Ranitidine HCl [Acid Rubber Goods Assembler] 150 mg PO BID 12/30/16 [History] Tiotropium [Spiriva] 18 mcg IH DAILY 12/30/16 [History] Calcium Polycarbophil [Fibercon] 625 mg PO DAILY 03/15/17 [History] Oxygen 2 l NS HS 03/15/17 [History] Diphenoxylate/Atropine [Lomotil 2.5 mg/0.025 mg] 1 tab PO QID PRN 06/10/17 [ History] LORazepam [Ativan] 0.5 mg PO HS #30 tablet 06/13/17 [Rx] FLUoxetine HCl [Prozac] 40 mg PO DAILY #60 06/20/17 [Rx] hydrOXYzine pamoate [HydrOXYzine Pamoate] 50 mg PO TID #90 06/20/17 [Rx] Gabapentin [Neurontin] 300 mg PO TID 06/23/17 [History] Atorvastatin [Lipitor] 40 mg PO HS 07/03/17 [History] Ipratropium/Albuterol Neb [Duoneb] 3 ml IH Q6HR 07/03/17 [History] Meclizine [Antivert] 12.5 mg PO TID PRN #90 tablet 07/06/17 [Rx] HYDROcodone/Acet 5/325 mg [[place] 5-325 mg] 1 tab PO Q8H PRN 07/20/17 [History] Isosorbide MONOnitrate (24 HR) [Imdur] 60 mg PO DAILY 07/20/17 [History] Lurasidone [Latuda] 40 mg PO DAILY 07/20/17 [History] Quetiapine Fumarate [Seroquel] 200 mg PO HS 07/20/17 [History] Warfarin [Coumadin] 3 mg PO DAILY 07/20/17 [History] 3 Allergy/AdvReac Type Severity Reaction Status Date / Time baclofen Allergy Itching Verified 06/23/17 09:33 ciprofloxacin [From Cipro] Allergy Hives Verified 06/23/17 09:33 latex Allergy Rash Verified 06/23/17 09:33 Penicillins Allergy Hives Verified 06/23/17 09:33 prednisone Allergy Itching Verified 06/23/17 09:33 sulfamethoxazole Allergy Hives Verified 06/23/17 09:33 [From Bactrim] trimethoprim [From Bactrim] Allergy Hives Verified 06/23/17 09:33 cefdinir AdvReac Vomiting Verified 06/23/17 09:33 Oxycodone AdvReac Hallucinati Verified 07/03/17 13:05 ng All Systems PM: A 10-system review of systems was performed and is negative for pertinent findings except as documented above in the HPI. - Constitutional Constitutional: as per HPI - Constitutional Vitals: Temp Pulse Resp BP Pulse Ox 98.3 F 98 18 120/63 97 07/20/17 12:18 07/20/17 15:30 07/20/17 16:06 07/20/17 16:06 07/20/17 15:30 General appearance: Present: A&O X 3, morbidly obese, no acute distress, answers questions appropriately - Head Head exam: Present: atraumatic, normocephalic - Eye Eye exam: Present: conjuntiva pink, sclera anicteric - Respiratory Respiratory exam: Present: decreased breath sounds. Absent: respiratory distress, wheezes - Cardiovascular Cardiovascular exam: Present: +S1, +S2, tachycardia. Absent: diastolic murmur, gallop, rubs, systolic murmur - GI/Abdominal GI/Abdominal exam: Present: normal bowel sounds, soft, no peritoneal signs. Absent: distended, tenderness - Extremities Exam Extremities exam: Present: warm, radial pulses palpable and symmetrical. Absent : calf tenderness, cyanotic, pedal edema - Neurological Exam Neurological exam: Present: alert, oriented X3 - Psychiatric Psychiatric exam: Present: normal affect, normal mood Internal Med - H&P Results - Labs CBC & Chem 7: 07/20/17 12:52 07/20/17 12:52
[2017-07-20] MEDS ORDERED: *HR* Warfarin 5 MG TABLET PO ONE (18:00)
[2017-07-20] MEDS ORDERED: Warfarin perPT PO PRN (18:00)
[2017-07-20] MEDS: levoFLOXacin 500 MG TABLET PO SCH (18:08)
[2017-07-20] MEDS: Ipratropium/Albuterol Neb 3 ML IH SCH ×2 (19:36→23:00)
[2017-07-20] MEDS: *HR* LORazepam 0.5 MG TABLET PO SCH (21:58)
[2017-07-20] MEDS: hydrOXYzine pamoate 25 MG CAPSULE PO SCH (21:58)
[2017-07-20] MEDS: Famotidine 20 MG TABLET PO SCH (21:58)
[2017-07-20] MEDS: Gabapentin 300 MG CAPSULE PO SCH (21:58)
[2017-07-20] MEDS: Insulin LISPRO 300 UNITS/3 ML VIAL SQ SCH (22:49)
[2017-07-20] MEDS: Insulin DETEMIR 100 UNIT/ML X5UNITS SQ SCH (23:23)
[2017-07-20] MEDS: *HR* HYDROcodone/Acet 5/325 mg TABLET PO PRN (23:23)
[2017-07-21 01:16] LABS: Basophils % 0.2 %; Hematocrit 42.3 % (35.3-44.9); Immature Granulocytes % 1.4 % (0-4); Lymphocytes # 0.8 K/mcL (0.6-4.6); Mean Corpuscular HGB Conc 33.1 g/dL (31.6-35.5); Mean Corpuscular Hemoglobin 29.7 pg (28.0-33.3); Mean Corpuscular Volume 89.8 fL (83.0-100.0); Mean Platelet Volume 9.8 fL (9.4-12.4); Monocytes # 0.1 K/mcL (0.0-1.3); Monocytes % 0.4 %; Neutrophils # 12.3 K/mcL (1.6-8.9); Platelet Count 205 K/mcL (140-400); Red Blood Count 4.71 M/mcL (3.82-4.97); Red Cell Distribution Width 13.4 % (11.5-14.5)
[2017-07-21 01:31] LABS: BUN/Creatinine Ratio 13 (6-26); Blood Urea Nitrogen 11 mg/dL (7-20); Calcium 9.5 mg/dL (8.6-10.8); Carbon Dioxide 22 mEq/L (19-29); Chloride 104 mEq/L (98-109); Glucose 206 mg/dL (70-99); INR 1.2; Magnesium 1.7 mg/dL (1.6-2.6); Osmolality,Calculated 289 (280-300); Phosphorous 3.5 mg/dL (2.3-4.7); Prothrombin Time 13.2 Seconds (9.4-12.1); Sodium 137 mEq/L (136-145); eGFR For African Americans > 60 (> 60); eGFR For Non-African Americans > 60 (> 60)
[2017-07-21] MEDS: Ipratropium/Albuterol Neb 3 ML IH SCH ×6 (03:03→23:01)
[2017-07-21] MEDS: *HR* Enoxaparin 100 MG/ML SYRINGE SQ SCH ×2 (05:45→17:49)
[2017-07-21] MEDS ORDERED: MethylPREDNISolone 40 MG/ML VIAL IVP SCH (06:00)
[2017-07-21] MEDS: Insulin LISPRO 300 UNITS/3 ML VIAL SQ SCH ×4 (09:31→20:26)
[2017-07-21] MEDS: Gabapentin 300 MG CAPSULE PO SCH ×3 (09:31→20:20)
[2017-07-21] MEDS: Isosorbide MONOnitrate (24 HR) 60 MG TAB.ER.24H PO SCH (09:31)
[2017-07-21] MEDS: Aspirin 81 MG TAB.CHEW PO SCH (09:31)
[2017-07-21] MEDS: Famotidine 20 MG TABLET PO SCH ×2 (09:31→20:20)
[2017-07-21] MEDS: hydrOXYzine pamoate 25 MG CAPSULE PO SCH ×3 (09:31→20:20)
[2017-07-21] MEDS: FLUoxetine 20 MG CAPSULE PO SCH (09:31)
[2017-07-21] MEDS: *HR* HYDROcodone/Acet 5/325 mg TABLET PO PRN ×2 (09:33→20:26)
[2017-07-21] MEDS ORDERED: *HR* HYDROcodone/Acet 5/325 mg TABLET PO ONE (13:11)
--- NOTE | 2017-07-21 15:27 | Internal Med Progress Note ---
Date of Encounter: 07/21/17 Time of Encounter: 15:23 - Assessment and plan (1) Acute exacerbation of chronic obstructive airways disease Current Visit: Yes Status: Acute Assessment and plan: Acute respiratory distress likely secondary to COPD exacerbation will start oral steroids (prednisone) bronchodilator support Levaquin 500mg PO qd O2 supplementation monitor O2 sat, goal O2 sat: 89-92% CTA chest negative for PE (2) Chest pain Current Visit: Yes Status: Acute Assessment and plan: currently asymptomatic serial TNI negative will continue home meds Qualifiers: Chest pain type: unspecified Qualified Code(s): R07.9 - Chest pain, unspecified (3) Afib Current Visit: No Status: Chronic Assessment and plan: Currently in sinus rhythm not on any medications for rate control given current INR, will do therapeutic dose of Lovenox to bridge with Coumadin continue tele monitoring. Qualifiers: Atrial fibrillation type: paroxysmal Qualified Code(s): I48.0 - Paroxysmal atrial fibrillation (4) CAD (coronary artery disease) Current Visit: No Status: Chronic Assessment and plan: continue home meds as per cardiology evaluation from last hospitalization, pt was to be on ASA, BB , Statin, and Imdur however, patient only on Statin and Imdur at home continue low dose BB and aspirin 81mg PO qd Qualifiers: Coronary Disease-Associated Artery/Lesion type: [place] artery [place] vs. transplanted heart: [place] heart Associated angina: angina presence unspecified Qualified Code(s): I25.10 - Atherosclerotic heart disease of [place] coronary artery without angina pectoris (5) CVA (cerebral vascular accident) Current Visit: No Status: Chronic Qualifiers: CVA mechanism: unspecified Qualified Code(s): I63.9 - Cerebral infarction, unspecified (6) Diabetes mellitus type 2 in obese Current Visit: No Status: Chronic Assessment and plan: Hold oral antihyperglycemics sliding scale insulin algorithm continue home basal insulin monitor FS and BG ADA diet (7) Morbid obesity with BMI of 40.0-44.9, adult Current Visit: No Status: Chronic (8) Tobacco abuse Current Visit: Yes Status: Chronic Assessment and plan: smoking cessation counselling provided pt states she is trying to cut down refused nicotine replacement therapy - Subjective Interval history: Pt seen and examined at bedside. Resting in bed, reports of feeling better compared to previous day. Reported of having localized right sided chest pain which is reproducible to palpation. Serial TNI negative and no ekg changes reported. No overnight issues reported. - Constitutional Vitals: Temp Pulse Resp BP Pulse Ox 98.4 F 90 16 133/72 96 07/21/17 14:57 07/21/17 14:57 07/21/17 14:57 07/21/17 14:57 07/21/17 14:57 General appearance: Present: A&O X 3, morbidly obese, no acute distress, answers questions appropriately - Head Head exam: Present: atraumatic, normocephalic - Eye Eye exam: Present: conjuntiva pink, sclera anicteric - Respiratory Respiratory exam: Present: decreased breath sounds. Absent: respiratory distress, wheezes - Cardiovascular Cardiovascular exam: Present: RRR, +S1, +S2. Absent: diastolic murmur, gallop, rubs, systolic murmur - GI/Abdominal GI/Abdominal exam: Present: normal bowel sounds, soft, no peritoneal signs. Absent: distended, tenderness - Extremities Exam Extremities exam: Present: warm, radial pulses palpable and symmetrical. Absent : calf tenderness - Neurological Exam Neurological exam: Present: alert, oriented X3 Internal Medicine: Result - Labs CBC & Chem 7: 07/21/17 00:42 07/21/17 00:42 Labs: Short CBC 07/21/17 Range/Units 00:42 WBC 13.4 H (4.3-11.1) K/mcL Hgb 14.0 (11.5-15.4) g/dL Hct 42.3 (35.3-44.9) % Plt Count 205 (140-400) K/mcL Neutrophils # 12.3 H (1.6-8.9) K/mcL BMP 07/21/17 00:42 Sodium 137 Potassium 4.0 Chloride 104 Carbon Dioxide 22 BUN 11 Creatinine 0.82 Glucose 206 H Calcium 9.5 Cardiac Enzymes 07/20/17 07/21/17 Range/Units 18:56 00:42 Troponin I 0.00 0.00 (0-0.03) ng/mL - ABG Interpretation ABG results: PT/INR, D-dimer PT 13.2 Seconds (9.4-12.1) H 07/21/17 00:42 - Impressions Impressions Chest CTA 07/20/17 16:51 IMPRESSION: No evidence of pulmonary embolism or acute pulmonary abnormality. D/ / Uri Drake MD / Uri Drake MD Interpreting Provider: Uri Drake MD Consult Discharge Plan - Plan Referrals: Maurisio Ward MD [Primary Care Provider] -
[2017-07-21] MEDS: levoFLOXacin 500 MG TABLET PO SCH (17:48)
[2017-07-21] MEDS ORDERED: *HR* Warfarin 3 MG TABLET PO ONE (18:00)
--- NOTE | 2017-07-21 20:01 | Electrocardiograph Report ---
[place] [id number] Test Date: 2017-07-20 Pat Name: Aliza Strong Department: 104 Room: [facility] Gender: F Managed Care Liaison: KODI : 1965 Requested By: Ngoc See Order Number: [id number] Reading MD: Jonny Betancur MD Measurements Intervals [place] Rate: 98 P: 79 MN: 166 QRS: 16 QRSD: 134 T: 110 QT: 387 QTc: 442 Interpretive Statements SINUS RHYTHM LEFT BUNDLE BRANCH BLOCK Electronically Signed On 07-21-2017 19:59:38 EDT by Jonny Betancur MD
[2017-07-21] MEDS: *HR* LORazepam 0.5 MG TABLET PO SCH (20:20)
[2017-07-21] MEDS: Insulin DETEMIR 100 UNIT/ML X5UNITS SQ SCH (20:26)
[2017-07-21] MEDS: predniSONE 20 MG TABLET PO SCH (20:26)
[2017-07-22] MEDS: Ipratropium/Albuterol Neb 3 ML IH SCH ×2 (03:26→08:12)
[2017-07-22 05:02] LABS: Basophils % 0.2 %; Hematocrit 39.2 % (35.3-44.9); Hemoglobin 12.8 g/dL (11.5-15.4); Immature Granulocytes % 1.4 % (0-4); Lymphocytes % 6.3 %; Mean Corpuscular HGB Conc 32.7 g/dL (31.6-35.5); Mean Corpuscular Hemoglobin 29.7 pg (28.0-33.3); Mean Platelet Volume 9.9 fL (9.4-12.4); Monocytes # 0.4 K/mcL (0.0-1.3); Monocytes % 2.6 %; Neutrophils # 14.5 K/mcL (1.6-8.9); Platelet Count 191 K/mcL (140-400); Red Blood Count 4.31 M/mcL (3.82-4.97); Red Cell Distribution Width 13.7 % (11.5-14.5); Segmented Neutrophils % 89.5 %
[2017-07-22 05:20] LABS: BUN/Creatinine Ratio 22 (6-26); Blood Urea Nitrogen 17 mg/dL (7-20); Calcium 8.9 mg/dL (8.6-10.8); Carbon Dioxide 24 mEq/L (19-29); Chloride 105 mEq/L (98-109); Glucose 237 mg/dL (70-99); Magnesium 1.8 mg/dL (1.6-2.6); Osmolality,Calculated 297 (280-300); Phosphorous 3.3 mg/dL (2.3-4.7); Potassium 4.6 mEq/L (3.5-4.5); Sodium 139 mEq/L (136-145); eGFR For African Americans > 60 (> 60); eGFR For Non-African Americans > 60 (> 60)
[2017-07-22 05:21] LABS: INR 2.1; Prothrombin Time 23.2 Seconds (9.4-12.1)
[2017-07-22] MEDS: *HR* Enoxaparin 100 MG/ML SYRINGE SQ SCH (05:44)
[2017-07-22 07:53] VITALS: BP 143/68
[2017-07-22] MEDS: Insulin LISPRO 300 UNITS/3 ML VIAL SQ SCH (08:10)
[2017-07-22] MEDS: *HR* HYDROcodone/Acet 5/325 mg TABLET PO PRN (08:11)
[2017-07-22] MEDS: Famotidine 20 MG TABLET PO SCH (08:11)
[2017-07-22] MEDS: hydrOXYzine pamoate 25 MG CAPSULE PO SCH (08:11)
[2017-07-22] MEDS: Isosorbide MONOnitrate (24 HR) 60 MG TAB.ER.24H PO SCH (08:11)
[2017-07-22] MEDS: FLUoxetine 20 MG CAPSULE PO SCH (08:11)
[2017-07-22] MEDS: Gabapentin 300 MG CAPSULE PO SCH (08:11)
[2017-07-22] MEDS: predniSONE 20 MG TABLET PO SCH (08:11)
[2017-07-22] MEDS: Aspirin 81 MG TAB.CHEW PO SCH (08:12)
--- NOTE | 2017-07-22 09:19 | Discharge Summary ---
Date of Encounter: 07/22/17 Time of Encounter: 09:16 - Discharge Diagnosis (1) Acute exacerbation of chronic obstructive airways disease Priority: Primary Status: Acute (2) Chest pain Priority: Primary Status: Resolved Qualifiers: Chest pain type: unspecified Qualified Code(s): R07.9 - Chest pain, unspecified (3) Afib Priority: Secondary Status: Chronic Qualifiers: Atrial fibrillation type: paroxysmal Qualified Code(s): I48.0 - Paroxysmal atrial fibrillation (4) CAD (coronary artery disease) Priority: Secondary Status: Chronic Qualifiers: Coronary Disease-Associated Artery/Lesion type: [place] artery [place] vs. transplanted heart: [place] heart Associated angina: angina presence unspecified Qualified Code(s): I25.10 - Atherosclerotic heart disease of [place] coronary artery without angina pectoris (5) CVA (cerebral vascular accident) Priority: Secondary Status: Chronic Qualifiers: CVA mechanism: unspecified Qualified Code(s): I63.9 - Cerebral infarction, unspecified (6) Diabetes mellitus type 2 in obese Priority: Secondary Status: Chronic (7) Morbid obesity with BMI of 40.0-44.9, adult Priority: Secondary Status: Chronic (8) Tobacco abuse Priority: Secondary Status: Chronic - Discharge Medications Prescriptions: Aspirin 81 mg PO DAILY #30 tab.chew levoFLOXacin [Levaquin] 500 mg PO Q24H #5 tablet Metoprolol [Lopressor] 12.5 mg PO BID #60 tablet predniSONE [PredniSONE] 40 mg PO DAILY #5 tablet Home Medications: Budesonide/Formoterol 160/4.5 [Symbicort 160/4.5] 2 puff IH BIDR 12/30/16 [ History] Insulin ASPART [NovoLOG] 2 - 10 unit SQ TIDWM PRN 12/30/16 [History] Insulin Glargine,Hum.rec.anlog [Lantus Solostar] 36 unit SQ HS 12/30/16 [History ] Levalbuterol Tartrate [Xopenex Hfa] 1 puff IH BID 12/30/16 [History] Nitroglycerin [Nitrostat] 0.4 mg SL AD PRN 12/30/16 [History] Ranitidine HCl [Acid Shadowgraph Scale Operator] 150 mg PO BID 12/30/16 [History] Tiotropium [Spiriva] 18 mcg IH DAILY 12/30/16 [History] Calcium Polycarbophil [Fibercon] 625 mg PO DAILY 03/15/17 [History] Oxygen 2 l NS HS 03/15/17 [History] Diphenoxylate/Atropine [Lomotil 2.5 mg/0.025 mg] 1 tab PO QID PRN 06/10/17 [ History] LORazepam [Ativan] 0.5 mg PO HS #30 tablet 06/13/17 [Rx] FLUoxetine HCl [Prozac] 40 mg PO DAILY #60 06/20/17 [Rx] hydrOXYzine pamoate [HydrOXYzine Pamoate] 50 mg PO TID #90 06/20/17 [Rx] Gabapentin [Neurontin] 300 mg PO TID 06/23/17 [History] Atorvastatin [Lipitor] 40 mg PO HS 07/03/17 [History] Ipratropium/Albuterol Neb [Duoneb] 3 ml IH Q6HR 07/03/17 [History] Meclizine [Antivert] 12.5 mg PO TID PRN #90 tablet 07/06/17 [Rx] HYDROcodone/Acet 5/325 mg [[place] 5-325 mg] 1 tab PO Q8H PRN 07/20/17 [History] Isosorbide MONOnitrate (24 HR) [Imdur] 60 mg PO DAILY 07/20/17 [History] Lurasidone [Latuda] 40 mg PO DAILY 07/20/17 [History] Quetiapine Fumarate [Seroquel] 200 mg PO HS 07/20/17 [History] Warfarin [Coumadin] 3 mg PO DAILY 07/20/17 [History] Aspirin 81 mg PO DAILY #30 tab.chew 07/22/17 [Rx] Metoprolol [Lopressor] 12.5 mg PO BID #60 tablet 07/22/17 [Rx] levoFLOXacin [Levaquin] 500 mg PO Q24H #5 tablet 07/22/17 [Rx] predniSONE [PredniSONE] 40 mg PO DAILY #5 tablet 07/22/17 [Rx] Allergies/Adverse Reactions: 3 Allergy/AdvReac Type Severity Reaction Status Date / Time baclofen Allergy Itching Verified 06/23/17 09:33 ciprofloxacin [From Cipro] Allergy Hives Verified 06/23/17 09:33 latex Allergy Rash Verified 06/23/17 09:33 Penicillins Allergy Hives Verified 06/23/17 09:33 prednisone Allergy Itching Verified 06/23/17 09:33 sulfamethoxazole Allergy Hives Verified 06/23/17 09:33 [From Bactrim] trimethoprim [From Bactrim] Allergy Hives Verified 06/23/17 09:33 cefdinir AdvReac Vomiting Verified 06/23/17 09:33 Oxycodone AdvReac Hallucinati Verified 07/03/17 13:05 ng Procedures/tests Complete & Pending: Procedures Performed prior 72 hours Category Date Time Status CTA chest [CT angio chest] [CT] Stat Cat Scan 07/20/17 16:51 Completed Date of admission: 07/20/17 15:01 Primary care physician: Maurisio Ward MD Discharging clinician: Micheline Cheema Anticipated date of discharge: 07/22/17 - Patient Status Disposition: Home, Self-Care Condition: Good Functional capacity at discharge: independent ambulation Overall status at discharge: patient is back to baseline - Discharge Instructions Follow Up With: Maurisio Ward MD [Primary Care Provider] - Additional Instructions: Please follow up with your primary care physician within five days after your discharge from the hospital Please follow up with your turn down attendant and lieutenant fire fighter within one week after your discharge from the hospital. Please continue oral steroids and antibiotics as prescribed. Metoprolol and Aspirin have been added to your home medications, please take these medications as prescribed. Please continue to wear home oxygen at all times. Please closely follow up with your PCP or coumadin clinic to monitor your INR. Resume all other medications as prescribed by your primary care physician. - Diet and Activity Activity: resume usual activities as tolerated, wear oxygen at all times, wear oxygen at night Diet: diabetic diet, low salt diet Hospital course: Ms. Strong is a 52 year old female PMH of Afib on anticoagulation, CAD, s/p tPA on 07/01/17, COPD on LTOT, DM, HTN, HLD who was admitted for acute respiratory distress secondary to COPD exacerbation and chest pain. She was started on IV steroids and bronchodilator support to which she responded appropriately. Her chest pain resolved once her respiratory status improved. She recently had cardiac work up done for chest pain which was negative for a OR. Her serial TNI were also negative during this admission. She was also found to have subtherapeutic INR for which she was bridged with Lovenox and Coumadin. Her INR is within therapeutic range and lovenox is discontinued. She has listed prednison as an allergy with adverse reaction of itching. She was given prednisone overnight and tolerated the medication, states she had minor itching and she is willing to continue taking the medications, she reports of taking prednisone in the past. At this time she is hemodynamically stable and will be discharged to home. She reports of complete resolution of her chest pain and her presenting symptoms. - Time Spent with Patient Total time spent providing and/or coordinating discharge services: Greater than 30 minutes - Constitutional Vitals: Temp Pulse Resp BP Pulse Ox 98.4 F 91 16 143/68 98 07/22/17 07:52 07/22/17 07:52 07/22/17 08:12 07/22/17 07:52 07/22/17 08:12 General appearance: Present: A&O X 3, morbidly obese, no acute distress, answers questions appropriately - Head Head exam: Present: atraumatic, normocephalic - Eye Eye exam: Present: conjuntiva pink, sclera anicteric - Respiratory Respiratory exam: Absent: accessory muscle use, rales, rhonchi, wheezes (equal air entry bilaterally) - Cardiovascular Cardiovascular exam: Present: RRR, +S1, +S2. Absent: diastolic murmur, gallop, rubs, systolic murmur - GI/Abdominal GI/Abdominal exam: Present: normal bowel sounds, soft, no peritoneal signs. Absent: distended, tenderness - Extremities Exam Extremities exam: Present: warm, radial pulses palpable and symmetrical. Absent : calf tenderness, cyanotic, pedal edema - Neurological Exam Neurological exam: Present: alert, oriented X3 - Psychiatric Psychiatric exam: Present: normal affect, normal mood
== END 2017-07-22 10:55 | disposition home or self-care (01) ==
LOC: 3BNU 12:14 → EMEROO 12:14 → SUATTDRO 15:01 → 3BNU 16:27
PROVIDERS: ADMIT Internal Medicine; ATTEND Internal Medicine

== ENCOUNTER 2017-08-15 09:41 | Inpatient (IN) ==
[2017-08-15] MEDS ORDERED: Ipratropium/Albuterol Neb 3 ML IH ONE (10:39)
[2017-08-15] MEDS ORDERED: methylPREDNISolone 125 MG/2 ML VIAL IVP ONE (10:40)
--- NOTE | 2017-08-15 10:43 | Emergency Department Note ---
Disposition Clinical Impression: Acute exacerbation of chronic obstructive pulmonary disease Disposition: Admitted As Inpatient Condition: Fair Time of Disposition: 13:08 SOB HPI - General Chief Complaint: ED Shortness of Breath/Dyspnea Stated Complaint: ANAMARIA Time Seen by Provider: 08/15/17 10:33 Source: patient Mode of arrival: ambulatory Limitations: no limitations Nursing Notes Reviewed: Yes Vital Signs Reviewed: Yes - History of Present Illness Patient presents to the ED if the chief complaint of shortness of breath. Patient has a history of COPD and is home oxygen dependent at 2 L. States she was seen and evaluated here a few days ago for similar symptoms and was told that she had a upper respiratory infection and was discharged home. States that her difficulty breathing is gotten worse since then. She has had to be admitted previously before for her breathing as well as placed on BiPAP. States that she feels like she cannot catch her breath despite increasing the amount of oxygen. She has been using at home. She has had no fever or chest pain. She has had a nonproductive cough as well. No vomiting. She is on Coumadin for paroxysmal A. fib. No history DVT, PE, malignancy, recent surgery - Related Data Home Medications Medication Instructions Recorded Confirmed Budesonide/Formoterol 160/4.5 2 puff IH BIDR 12/30/16 08/15/17 [Symbicort 160/4.5] Insulin ASPART [NovoLOG] 2 - 10 unit SQ TIDWM PRN 12/30/16 08/15/17 Insulin Glargine,Hum.rec.anlog 36 unit SQ HS 12/30/16 08/15/17 [Lantus Solostar] Levalbuterol Tartrate [Xopenex Hfa] 1 puff IH BID 12/30/16 08/15/17 Nitroglycerin [Nitrostat] 0.4 mg SL AD PRN 12/30/16 08/15/17 Ranitidine HCl [Acid Financial Services Associate] 150 mg PO BID 12/30/16 08/15/17 Tiotropium [Spiriva] 18 mcg IH DAILY 12/30/16 08/15/17 Calcium Polycarbophil [Fibercon] 625 mg PO DAILY 03/15/17 08/15/17 Oxygen 2 l NS HS 03/15/17 08/15/17 Diphenoxylate/Atropine [Lomotil 1 tab PO QID PRN 06/10/17 08/15/17 2.5 mg/0.025 mg] Gabapentin [Neurontin] 300 mg PO TID 06/23/17 08/15/17 Atorvastatin [Lipitor] 40 mg PO HS 07/03/17 08/15/17 Ipratropium/Albuterol Neb [Duoneb] 3 ml IH Q6HR 07/03/17 08/15/17 HYDROcodone/Acet 5/325 mg [[place] 1 tab PO Q8H PRN 07/20/17 08/15/17 5-325 mg] Isosorbide MONOnitrate (24 HR) 60 mg PO DAILY 07/20/17 08/15/17 [Imdur] Lurasidone [Latuda] 40 mg PO DAILY 07/20/17 08/15/17 Quetiapine Fumarate [Seroquel] 200 mg PO HS 07/20/17 08/15/17 Warfarin [Coumadin] 3 mg PO SUMOWETHFR 07/20/17 08/15/17 Warfarin [Coumadin] 4.5 mg PO TUSA 08/15/17 08/15/17 Previous Rx's Medication Instructions Recorded LORazepam [Ativan] 0.5 mg PO HS #30 tablet 06/13/17 FLUoxetine HCl [Prozac] 40 mg PO DAILY #60 06/20/17 hydrOXYzine pamoate [HydrOXYzine 50 mg PO TID #90 06/20/17 Pamoate] Meclizine [Antivert] 12.5 mg PO TID PRN #90 tablet 07/06/17 Aspirin 81 mg PO DAILY #30 tab.chew 07/22/17 Metoprolol [Lopressor] 12.5 mg PO BID #60 tablet 07/22/17 Azithromycin [Zithromax] 250 mg PO DAILY #6 tablet 08/13/17 predniSONE [PredniSONE] 60 mg PO DAILY #15 tablet 08/13/17 Allergies Allergy/AdvReac Type Severity Reaction Status Date / Time baclofen Allergy Itching Verified 08/03/17 23:34 ciprofloxacin [From Cipro] Allergy Hives Verified 08/03/17 23:34 latex Allergy Rash Verified 08/03/17 23:34 Penicillins Allergy Hives Verified 08/03/17 23:34 prednisone Allergy Itching Verified 08/03/17 23:34 sulfamethoxazole Allergy Hives Verified 08/03/17 23:34 [From Bactrim] trimethoprim [From Bactrim] Allergy Hives Verified 08/03/17 23:34 cefdinir AdvReac Vomiting Verified 08/03/17 23:34 Oxycodone AdvReac Hallucinati Verified 08/03/17 23:34 ng All systems ED: reviewed and negative except as stated. Constitutional: Denies: fever Cardiovascular: Reports: dyspnea on exertion. Denies: chest pain, edema Respiratory: Reports: cough, dyspnea Gastrointestinal: Denies: vomiting Musculoskeletal: Denies: back pain Neurological: Denies: headache Past Medical History - Past Medical History Attestation: Yes The following information was validated with the patient. Source: patient Medical history: Reports: arthritis, asthma, atrial fibrillation, COPD, coronary artery disease, CVA, diabetes, GERD, hyperlipidemia, hypertension, migraine, myocardial infarction, peripheral artery disease, TIA, other Surgical history: Reports: angioplasty/stent, appendectomy, cholecystectomy, knee replacement, other Psychiatric history: Reports: anxiety, depression, prior suicide attempt, previous psychiatric hospitalization [employer] history: Reports: bilateral 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 - Social History Smoking Status: Current every day smoker Smokeless Tobacco Status: No Alcohol use: Reports: rarely Drug use: Reports: none Physical Exam - General Limitations: no limitations General appearance: alert, in distress (Moderate respiratory distress, patient was forced to ambulate back to the South side and not placed in a wheelchair) - Head Head exam: atraumatic, normocephalic, normal inspection - Eye Eye exam: Present: normal appearance, PERRL, EOMI - ENT ENT exam: mucous membranes dry - Neck Neck exam: Present: normal inspection, full ROM, trachea midline - Chest Chest inspection: Present: normal inspection, symmetric chest wall rise - Respiratory Respiratory exam: Present: respiratory distress (Moderate). Absent: normal lung sounds bilaterally Course Course Narrative: Patient presenting with shortness of breath. Seen in the ER a few days ago and diagnosed with upper respiratory infection. Does have history of COPD and is on oxygen at all times, but states this feels worse. Has been having increasing oxygen requirements. No history DVT, PE, malignancy or recent surgery. She is anticoagulated on Coumadin for paroxysmal A. fib. Wheezing throughout, moderate respiratory distress. We will try nabs and if not improving. Will place on BiPAP. Also check d-dimer to evaluate for PE. - Reevaluation(s) Reevaluation #1: Patient reports feeling a little better after nebs, but is still having significant work of breathing. Placed on BiPAP with good improvement. No pneumonia or PE. Will admit for COPD exacerbation and will keep her on BiPAP Vital Signs Temperature 97.5 F L 08/15/17 09:45 Pulse Rate 90 08/15/17 09:45 Respiratory Rate 18 08/15/17 09:45 Blood Pressure 125/80 08/15/17 09:45 O2 Sat by Pulse Oximetry 94 08/15/17 09:45 Temperature 97.5 F L 08/15/17 09:45 Pulse Rate 90 08/15/17 11:11 Respiratory Rate 14 08/15/17 12:56 Blood Pressure 137/83 08/15/17 12:56 O2 Sat by Pulse Oximetry 96 08/15/17 11:11 Oxygen Delivery Oxygen Delivery Bipap Shortness of Breath/Dyspnea - Medical Records Medical records reviewed: Yes I reviewed the patient's medical records. - Lab Data Lab results reviewed: Yes I reviewed the patient's lab results. Result diagrams: 08/15/17 10:50 08/15/17 10:50 Lab Results 08/15/17 08/15/17 08/15/17 Range/Units 10:50 10:50 10:50 WBC 12.7 H (4.3-11.1) K/mcL RBC 4.47 (3.82-4.97) M/mcL Hgb 13.2 (11.5-15.4) g/dL Hct 39.4 (35.3-44.9) % MCV 88.1 (83.0-100.0) fL MCH 29.5 (28.0-33.3) pg MCHC 33.5 (31.6-35.5) g/dL RDW 13.6 (11.5-14.5) % Plt Count 250 (140-400) K/mcL MPV 9.4 (9.4-12.4) fL Immature Gran % 0.9 (0-4) % Seg Neutrophils % 82.7 % Lymphocytes % 10.4 % Monocytes % 5.2 % Eosinophils % 0.4 % Basophils % 0.4 % Neutrophils # 10.5 H (1.6-8.9) K/mcL Lymphocytes # 1.3 (0.6-4.6) K/mcL Monocytes # 0.7 (0.0-1.3) K/mcL Eosinophils # 0.1 (0.0-0.6) K/mcL Basophils # 0.1 (0.0-0.2) K/mcL D-Dimer < 215 (0-500) ng/mLFEU Sodium 141 (136-145) mEq/L Potassium 4.5 (3.5-4.5) mEq/L Chloride 108 (98-109) mEq/L Carbon Dioxide 22 (19-29) mEq/L BUN 18 (7-20) mg/dL Creatinine 0.75 (0.57-1.11) mg/dL Est GFR ( Amer) > 60 (> 60) Est GFR (Non-Af Amer) > 60 (> 60) BUN/Creatinine Ratio 24 (6-26) Glucose 132 H (70-99) mg/dL Calculated Osmolality 296 (280-300) Lactic Acid (0.5-2.2) mmol/L Calcium 8.8 (8.6-10.8) mg/dL Troponin I (0-0.03) ng/mL B-Natriuretic Peptide (0-100) pg/mL 08/15/17 08/15/17 08/15/17 Range/Units 10:50 10:50 10:50 WBC (4.3-11.1) K/mcL RBC (3.82-4.97) M/mcL Hgb (11.5-15.4) g/dL Hct (35.3-44.9) % MCV (83.0-100.0) fL MCH (28.0-33.3) pg MCHC (31.6-35.5) g/dL RDW (11.5-14.5) % Plt Count (140-400) K/mcL MPV (9.4-12.4) fL Immature Gran % (0-4) % Seg Neutrophils % % Lymphocytes % % Monocytes % % Eosinophils % % Basophils % % Neutrophils # (1.6-8.9) K/mcL Lymphocytes # (0.6-4.6) K/mcL Monocytes # (0.0-1.3) K/mcL Eosinophils # (0.0-0.6) K/mcL Basophils # (0.0-0.2) K/mcL D-Dimer (0-500) ng/mLFEU Sodium (136-145) mEq/L Potassium (3.5-4.5) mEq/L Chloride (98-109) mEq/L Carbon Dioxide (19-29) mEq/L BUN (7-20) mg/dL Creatinine (0.57-1.11) mg/dL Est GFR ( Amer) (> 60) Est GFR (Non-Af Amer) (> 60) BUN/Creatinine Ratio (6-26) Glucose (70-99) mg/dL Calculated Osmolality (280-300) Lactic Acid 2.3 H (0.5-2.2) mmol/L Calcium (8.6-10.8) mg/dL Troponin I 0.00 (0-0.03) ng/mL B-Natriuretic Peptide 118 H (0-100) pg/mL - Radiology Data Radiology results reviewed: Yes I reviewed the patient's radiology results. Chest X-Ray 08/15/17 10:34 IMPRESSION: No acute cardiopulmonary disease D/ / Andrews Chance MD / Andrews Chance MD Interpreting Provider: Andrews Chance MD - EKG Data EKG attestation: Yes I reviewed and interpreted this EKG. EKG results narrative: Sinus rhythm, rate 84, [place] interval 160, QRS 134, QTC 457, intraventricular conduction delay, no acute ischemic changes compared to previous from 2 days ago Critical Care Time Critical Care Time: Yes Total Critical Care Time: 30 Attestation: Critical care performed: Time is exclusive of separately billable procedures. Time includes: direct patient care, patient reassessment, coordination of patient care, interpretation of data (laboratory data, radiology data, and respiratory data), review of patient's medical records, medical consultation and documentation of patient care. Procedures included in critical care time: Critical care times include taking care of this critically ill patient with COPD exacerbation requiring 3 doing nebs the steroids and placing on BiPAP. Procedures excluded from critical care time: S.B.A.R. - S.B.A.Fran. Situation: Demographics, MOA Background: Presenting Complaint, Relevant PMH, Meds, & Allergies Assessment: Vital Signs, Course and respsone to treatment, Exam Concerns, Patient/Family Expectation, Pertinant Lab Results, Outstanding Labs Recommendation: Barrier(s) to disposition, Recommendation based on pending studies, treatments, or consults Veronika Report Given to: Dr. Marcus Banda Repor Time: 13:08
[2017-08-15 11:05] LABS: Basophils # 0.1 K/mcL (0.0-0.2); Basophils % 0.4 %; Eosinophils # 0.1 K/mcL (0.0-0.6); Eosinophils % 0.4 %; Hematocrit 39.4 % (35.3-44.9); Hemoglobin 13.2 g/dL (11.5-15.4); Immature Granulocytes % 0.9 % (0-4); Lymphocytes # 1.3 K/mcL (0.6-4.6); Lymphocytes % 10.4 %; Mean Corpuscular HGB Conc 33.5 g/dL (31.6-35.5); Mean Corpuscular Hemoglobin 29.5 pg (28.0-33.3); Mean Corpuscular Volume 88.1 fL (83.0-100.0); Mean Platelet Volume 9.4 fL (9.4-12.4); Monocytes # 0.7 K/mcL (0.0-1.3); Monocytes % 5.2 %; Neutrophils # 10.5 K/mcL (1.6-8.9); Platelet Count 250 K/mcL (140-400); Red Blood Count 4.47 M/mcL (3.82-4.97); Red Cell Distribution Width 13.6 % (11.5-14.5); Segmented Neutrophils % 82.7 %
[2017-08-15 11:17] LABS: BUN/Creatinine Ratio 24 (6-26); Blood Urea Nitrogen 18 mg/dL (7-20); Calcium 8.8 mg/dL (8.6-10.8); Carbon Dioxide 22 mEq/L (19-29); Chloride 108 mEq/L (98-109); Glucose 132 mg/dL (70-99); Osmolality,Calculated 296 (280-300); Potassium 4.5 mEq/L (3.5-4.5); Sodium 141 mEq/L (136-145); eGFR For African Americans > 60 (> 60); eGFR For Non-African Americans > 60 (> 60)
[2017-08-15] MEDS ORDERED: 0.9 % Sodium Chloride 1,000 ML IVC ONE (11:40)
[2017-08-15] MEDS ORDERED: Albuterol 2.5 MG/3 ML NEBULIZER IH ONE (11:45)
[2017-08-15] MEDS ORDERED: *HR* LORazepam 2 MG/ML VIAL IVP ONE (11:45)
--- NOTE | 2017-08-15 12:04 | Emergency Department Note ---
START Narrative - START START: I examined this patient and my medical decision-making was reviewed with the LOADMASTER/PA/Advanced Practice Nurse/Resident Physician. I agree with the documented findings, disposition and treatment plan as described except to the extent set forth below. ED attending: Patient's emergency medicine resident Dr. ISABEL HORTA. Please see copy of this note for H&P evaluation and management and ED disposition. We both had independent [id number] time in contact with this patient. Briefly: A 52-year-old female patient with COPD was seen earlier within the week treated and released with a Z-Jos. Comes in with increasing shortness of breath despite multiple breathing treatments here negative chest x-ray and fairly normal labs. We will place her on BiPAP and admit for COPD flare. Providing 35 minutes of critical care services for this patient. Admission disposition pending
[2017-08-15] MEDS ORDERED: Naloxone 0.4 MG/ML INJ IVP PRN (12:34)
[2017-08-15] MEDS ORDERED: *HR* Dextrose 50 % in Water (Syg) 50 ML SYRINGE IVP PRN (12:34)
[2017-08-15] MEDS ORDERED: Dextrose Gel 15 GM PO PRN ×2 (12:34)
[2017-08-15] MEDS ORDERED: D5% in Water 1,000 ML IVC PRN (12:34)
--- NOTE | 2017-08-15 12:49 | Internal Med History&Physical ---
Date of Encounter: 08/15/17 Time of Encounter: 12:44 Assessment and Plan (1) Acute exacerbation of chronic obstructive pulmonary disease Current visit: Yes Status: Acute Continues to have shortness of breath. Patient remains on BiPAP 40% FiO2. Mildly elevated wbc's 12.7, due to continuing dyspnea and COPD and progressing LRI symptoms start empiric ATB coverage with doxycycline 100 mg IVPB BID Solu-Medrol 60 mg every 8HRS DUONEBS every 4 hours scheduled, albuterol every 2 hours when necessary Wean o2 from Bipap to NC as appropriate Continuous tele and spo2 monitoring (2) Diabetes mellitus type 2 in obese Current visit: Yes Status: Chronic LSSIC, AC/HS accuchecks, diabetic diet (3) Afib Current visit: Yes Status: Chronic h/o a-fib, currently NSR with intraventricular conduction delay. Hemodynamically stable. Continuous tele. Resume BB and coumadin with PT to dose Qualifiers: Atrial fibrillation type: paroxysmal Qualified Code(s): I48.0 - Paroxysmal atrial fibrillation (4) HLD (hyperlipidemia) Current visit: Yes Status: Acute Qualifiers: Qualified Code(s): E78.5 - Hyperlipidemia, unspecified (5) HTN (hypertension) Current visit: Yes Status: Acute H/o HTN, Resume BB, and imdur Qualifiers: Hypertension type: essential hypertension Qualified Code(s): I10 - Essential (primary) hypertension (6) CAD (coronary artery disease) Current visit: Yes Status: Acute Continue imdur, asa, coumadin, bb and statin Qualifiers: Qualified Code(s): I25.10 - Atherosclerotic heart disease of [place] coronary artery without angina pectoris (7) DVT prophylaxis Current visit: Yes Status: Acute On coumadin, resume. Internal Medicine - H&P: HPI Chief complaint: dyspnea; COPD exacerbation Admitted From: Home Plans for Post Hospital Care: Home History of present illness: Ms. Strong is a 52 year old female with a PMH COPD, A. fib, arthritis, asthma, CAD, CVA, diabetes hypertension and SD with stents. She presents today with a weeklong history of shortness of breath. She was seen 2 days ago in ED and diagnosed and sent home with URI. Patient reports over the last 2 days she began feeling more dyspneic. Dyspnea exacerbated with activity. She is on home 02 and reports that she has increased the oxygen concentration but remains SOB. Denies any fevers, chest pain, swelling, nausea, tachycardia, or leg pain/ tenderness. H/o afib no prior H/O PE, DVT, on coumadin. CXR unremarkable, troponin 0.00 Past Med Surg Social Fam HX - Past Medical History Medical history: arthritis, asthma, atrial fibrillation, COPD, coronary artery disease, CVA, diabetes, GERD, hyperlipidemia, hypertension, migraine, myocardial infarction, peripheral artery disease, TIA, other Psychiatric history: anxiety, depression, prior suicide attempt, previous psychiatric hospitalization - Past Surgical History Surgical History: angioplasty/stent, appendectomy, cholecystectomy, knee replacement, other - Social History Smoking Status: Current every day smoker Smokeless Tobacco Status: No Alcohol use: rarely Drug use: none - Family History Father Living Status: Mother Living Status: Hx Family Cardiac Disorders: No Hx Family Respiratory Disorders: Yes (COPD) Hx Family Cancer: No Hx Family GI Disorders: No Hx Family Endocrine Disorder: No Hx Family Neuromuscular Disorders: No Hx Family Neurologic Disorders: No Hx Family HEENT Disorders: No Hx Family Autoimmune Disorders: No Internal Medicine - H&P: Meds Budesonide/Formoterol 160/4.5 [Symbicort 160/4.5] 2 puff IH BIDR 12/30/16 [ History] Insulin ASPART [NovoLOG] 2 - 10 unit SQ TIDWM PRN 12/30/16 [History] Insulin Glargine,Hum.rec.anlog [Lantus Solostar] 36 unit SQ HS 12/30/16 [History ] Levalbuterol Tartrate [Xopenex Hfa] 1 puff IH BID 12/30/16 [History] Nitroglycerin [Nitrostat] 0.4 mg SL AD PRN 12/30/16 [History] Ranitidine HCl [Acid Maintenance Truck Driver] 150 mg PO BID 12/30/16 [History] Tiotropium [Spiriva] 18 mcg IH DAILY 12/30/16 [History] Calcium Polycarbophil [Fibercon] 625 mg PO DAILY 03/15/17 [History] Oxygen 2 l NS HS 03/15/17 [History] Diphenoxylate/Atropine [Lomotil 2.5 mg/0.025 mg] 1 tab PO QID PRN 06/10/17 [ History] LORazepam [Ativan] 0.5 mg PO HS #30 tablet 06/13/17 [Rx] FLUoxetine HCl [Prozac] 40 mg PO DAILY #60 06/20/17 [Rx] hydrOXYzine pamoate [HydrOXYzine Pamoate] 50 mg PO TID #90 06/20/17 [Rx] Gabapentin [Neurontin] 300 mg PO TID 06/23/17 [History] Atorvastatin [Lipitor] 40 mg PO HS 07/03/17 [History] Ipratropium/Albuterol Neb [Duoneb] 3 ml IH Q6HR 07/03/17 [History] Meclizine [Antivert] 12.5 mg PO TID PRN #90 tablet 07/06/17 [Rx] HYDROcodone/Acet 5/325 mg [[place] 5-325 mg] 1 tab PO Q8H PRN 07/20/17 [History] Isosorbide MONOnitrate (24 HR) [Imdur] 60 mg PO DAILY 07/20/17 [History] Lurasidone [Latuda] 40 mg PO DAILY 07/20/17 [History] Quetiapine Fumarate [Seroquel] 200 mg PO HS 07/20/17 [History] Warfarin [Coumadin] 3 mg PO SUMOWETHFR 07/20/17 [History] Aspirin 81 mg PO DAILY #30 tab.chew 07/22/17 [Rx] Metoprolol [Lopressor] 12.5 mg PO BID #60 tablet 07/22/17 [Rx] Azithromycin [Zithromax] 250 mg PO DAILY #6 tablet 08/13/17 [Rx] predniSONE [PredniSONE] 60 mg PO DAILY #15 tablet 08/13/17 [Rx] Warfarin [Coumadin] 4.5 mg PO TUSA 08/15/17 [History] 3 Allergy/AdvReac Type Severity Reaction Status Date / Time baclofen Allergy Itching Verified 08/03/17 23:34 ciprofloxacin [From Cipro] Allergy Hives Verified 08/03/17 23:34 latex Allergy Rash Verified 08/03/17 23:34 Penicillins Allergy Hives Verified 08/03/17 23:34 prednisone Allergy Itching Verified 08/03/17 23:34 sulfamethoxazole Allergy Hives Verified 08/03/17 23:34 [From Bactrim] trimethoprim [From Bactrim] Allergy Hives Verified 08/03/17 23:34 cefdinir AdvReac Vomiting Verified 08/03/17 23:34 Oxycodone AdvReac Hallucinati Verified 08/03/17 23:34 ng All Systems PM: A 10-system review of systems was performed and is negative for pertinent findings except as documented above in the HPI. - Constitutional Constitutional: chills, fatigue, no fever(s), no night sweats, no weakness, no weight gain, no weight loss - EENT Nose, mouth and throat: no hoarseness, no post-nasal drip, no sinus pain, no sinus pressure, no throat swelling - Cardiovascular Cardiovascular ROS IM: dyspnea, dyspnea on exertion, no chest pain, no edema, no irregular heart rhythm, no lightheadedness, no palpitations, no syncope - Respiratory Respiratory: as per HPI, cough (non productive), dyspnea, dyspnea on exertion, wheezing, no pain on inspiration, no chest congestion, no change in phlegm color , no pain with cough - Gastrointestinal Gastrointestinal: no abdominal pain, no diarrhea, no nausea, no vomiting - Genitourinary Genitourinary: no dysuria, no flank pain, no hematuria - Integumentary Integumentary IM: no rash, no unusual bruising - Neurological Neurological ROS: no confusion, no convulsions, no focal weakness, no numbness, no tingling, no tremor(s) - Hematologic/Lymphatic Hematologic/Lymphatic: no easy bruising - Constitutional Vitals: Temp Pulse Resp BP Pulse Ox 97.5 F L 90 30 137/83 96 08/15/17 09:45 08/15/17 11:11 08/15/17 11:11 08/15/17 11:11 08/15/17 11:11 General appearance: Present: mild distress, A&O X 3, obese, answers questions appropriately - Head Head exam: Present: atraumatic, normocephalic - Eye Eye exam: Present: PERRL, conjuntiva pink, sclera anicteric Pupils: Present: PERRL - Neck Neck exam general surgery: Present: normal inspection, supple, trachea midline. Absent: lymphadenopathy, tenderness - Respiratory Respiratory exam: Present: decreased breath sounds, prolonged expiratory phase, respiratory distress, wheezes (fine posterior BL upper lobes), tachypnea. Absent: accessory muscle use, chest wall tenderness, rales, rhonchi - Cardiovascular Cardiovascular exam: Present: RRR, +S1, +S2. Absent: bradycardia, diastolic murmur, distant heart sounds, irregular rhythm, JVD, systolic murmur, tachycardia - GI/Abdominal GI/Abdominal exam: Present: normal bowel sounds, soft, no peritoneal signs. Absent: distended, tenderness - Extremities Exam Extremities exam: Present: warm, radial pulses palpable and symmetrical. Absent : calf tenderness, cyanotic, pedal edema - Neurological Exam Neurological exam: Present: oriented X3 - Skin Skin exam: Present: dry, intact Internal Med - H&P Results - Labs CBC & Chem 7: 08/15/17 10:50 08/15/17 10:50 - EKG Data -: EKG Interpreted by Myself EKG shows normal: sinus rhythm Rate: normal - EKG Data Prior EKG available for review: yes When compared to previous EKG: there is no significant change EKG comments: SR intraventricular conduction delay, no acute ischemic changes compared to previous 08/15/17 12:52 - Diagnostic Studies Chest x-ray Status: image reviewed by me Additional comments: no acute pulmonary process - VTE Reasons for not Prescribing Prophylaxis: Not indicated-Anticoagulated or INR therapeutic
[2017-08-15] MEDS ORDERED: Doxycycline 100 MG in 0.9 % Sodium Chloride Mini Bag 100 ML IVPB SCH (13:15)
--- NOTE | 2017-08-15 13:33 | Event Note ---
Date of Encounter: 08/15/17 Time of Encounter: 13:32 Patient seen and examined with nurse practitioner. Acute COPD exacerbation. IV steroids Q4 hours nebulizer treatment and doxycycline 100 mg IV BID for acute bronchitis. There is no evidence of pneumonia chest x-ray. Patient is in respiratory failure requiring BiPAP FIO2 40%. she is more or less comfortable during my interview. She is full code
[2017-08-15 13:55] LABS: INR 2.9; Prothrombin Time 32.3 Seconds (9.4-12.1)
[2017-08-15] MEDS: Gabapentin 300 MG CAPSULE PO SCH ×2 (14:22→20:49)
[2017-08-15] MEDS: *HR* HYDROcodone/Acet 5/325 mg TABLET PO PRN (14:22)
[2017-08-15] MEDS: methylPREDNISolone 125 MG/2 ML VIAL IVP SCH ×2 (14:23→21:36)
[2017-08-15] MEDS: hydrOXYzine pamoate 25 MG CAPSULE PO SCH ×2 (14:23→20:49)
[2017-08-15] MEDS ORDERED: methylPREDNISolone 125 MG/2 ML VIAL IVP SCH (16:00)
[2017-08-15] MEDS: Doxycycline 100 MG in 0.9 % Sodium Chloride Mini Bag 100 ML IVPB SCH (16:16)
[2017-08-15] MEDS ORDERED: *HR* LORazepam 0.5 MG TABLET PO ONE (16:17)
[2017-08-15] MEDS: Insulin LISPRO 300 UNITS/3 ML VIAL SQ SCH ×2 (17:12→20:48)
[2017-08-15] MEDS ORDERED: *HR* Warfarin 3 MG TABLET PO SCH (18:00)
[2017-08-15] MEDS ORDERED: Warfarin perPT PO PRN (18:00)
[2017-08-15] MEDS: Nicotine 14 MG PATCH.TD24 TD SCH (18:52)
[2017-08-15] MEDS: Insulin DETEMIR 100 UNIT/ML X5UNITS SQ SCH (20:48)
[2017-08-15] MEDS: Famotidine 20 MG TABLET PO SCH (20:49)
[2017-08-15] MEDS: *HR* LORazepam 0.5 MG TABLET PO SCH (20:50)
[2017-08-16] MEDS: methylPREDNISolone 125 MG/2 ML VIAL IVP SCH ×4 (02:36→20:22)
[2017-08-16] MEDS: Doxycycline 100 MG in 0.9 % Sodium Chloride Mini Bag 100 ML IVPB SCH (02:36)
[2017-08-16 05:05] LABS: Basophils % 0.2 %; Hemoglobin 12.4 g/dL (11.5-15.4); Immature Granulocytes % 1.7 % (0-4); Lymphocytes # 1.1 K/mcL (0.6-4.6); Lymphocytes % 6.7 %; Mean Corpuscular HGB Conc 32.6 g/dL (31.6-35.5); Mean Platelet Volume 9.6 fL (9.4-12.4); Monocytes # 0.2 K/mcL (0.0-1.3); Monocytes % 1.5 %; Platelet Count 228 K/mcL (140-400); Red Blood Count 4.27 M/mcL (3.82-4.97); Red Cell Distribution Width 13.3 % (11.5-14.5); Segmented Neutrophils % 89.9 %
[2017-08-16 05:07] LABS: INR 3.4; Prothrombin Time 37.4 Seconds (9.4-12.1)
[2017-08-16 05:18] LABS: BUN/Creatinine Ratio 24 (6-26); Blood Urea Nitrogen 16 mg/dL (7-20); Calcium 8.9 mg/dL (8.6-10.8); Carbon Dioxide 22 mEq/L (19-29); Chloride 107 mEq/L (98-109); Glucose 184 mg/dL (70-99); Osmolality,Calculated 294 (280-300); Potassium 4.2 mEq/L (3.5-4.5); Sodium 139 mEq/L (136-145); eGFR For African Americans > 60 (> 60); eGFR For Non-African Americans > 60 (> 60)
[2017-08-16] MEDS: *HR* HYDROcodone/Acet 5/325 mg TABLET PO PRN ×2 (07:49→18:25)
[2017-08-16] MEDS: Insulin LISPRO 300 UNITS/3 ML VIAL SQ SCH ×4 (07:50→22:15)
[2017-08-16] MEDS: Aspirin 81 MG TAB.CHEW PO SCH (07:50)
[2017-08-16] MEDS: hydrOXYzine pamoate 25 MG CAPSULE PO SCH ×3 (07:50→22:17)
[2017-08-16] MEDS: Isosorbide MONOnitrate (24 HR) 60 MG TAB.ER.24H PO SCH (07:50)
[2017-08-16] MEDS: Famotidine 20 MG TABLET PO SCH ×2 (07:51→22:18)
[2017-08-16] MEDS: FLUoxetine 20 MG CAPSULE PO SCH (07:51)
[2017-08-16] MEDS: Gabapentin 300 MG CAPSULE PO SCH ×3 (07:51→22:17)
[2017-08-16] MEDS: Nicotine 14 MG PATCH.TD24 TD SCH (07:51)
[2017-08-16] MEDS: Ipratropium/Albuterol Neb 3 ML IH SCH ×3 (10:54→20:59)
[2017-08-16] MEDS: Ibuprofen 400 MG TABLET PO SCH ×3 (14:16→20:23)
[2017-08-16] MEDS: cefTRIAXone 1,000 MG in Water for inj. (sterile) 10 ML IVP SCH (14:18)
[2017-08-16] MEDS ORDERED: Ibuprofen 400 MG TABLET PO SCH (16:00)
[2017-08-16] MEDS ORDERED: *HR* Warfarin 3 MG TABLET PO SCH (18:00)
--- NOTE | 2017-08-16 19:46 | Internal Med Progress Note ---
Date of Encounter: 08/16/17 Time of Encounter: 19:44 - Assessment and plan (1) Acute exacerbation of chronic obstructive airways disease Current Visit: No Status: Acute (2) Diabetes mellitus type 2 in obese Current Visit: Yes Status: Chronic (3) HTN (hypertension) Current Visit: Yes Status: Acute Qualifiers: Hypertension type: essential hypertension Qualified Code(s): I10 - Essential (primary) hypertension (4) HLD (hyperlipidemia) Current Visit: Yes Status: Acute Qualifiers: Hyperlipidemia type: unspecified Qualified Code(s): E78.5 - Hyperlipidemia , unspecified (5) CAD (coronary artery disease) Current Visit: Yes Status: Acute Qualifiers: Coronary Disease-Associated Artery/Lesion type: [place] artery [place] vs. transplanted heart: [place] heart Associated angina: without angina Qualified Code(s): I25.10 - Atherosclerotic heart disease of [place] coronary artery without angina pectoris - Subjective Interval history: Admitted for acute exacerbation of COPD. History of chronic A. fib and hypertension diabetes. Is still quite wheezy and will intensify her COPD treatment. Complaining of pleuritic left-sided chest pain ibuprofen added. INR is 3.4 and Coumadin is on hold. White count has gone up will add IV Rocephin to doxycycline. - Constitutional Vitals: Temp Pulse Resp BP Pulse Ox 98.4 F 85 19 135/70 98 08/16/17 19:09 08/16/17 19:09 08/16/17 19:09 08/16/17 19:09 08/16/17 19:09 General appearance: Present: mild distress, A&O X 3, obese, answers questions appropriately - Head Head exam: Present: atraumatic, normocephalic - Eye Eye exam: Present: PERRL, conjuntiva pink, sclera anicteric Pupils: Present: PERRL - Neck Neck exam general surgery: Present: supple, trachea midline. Absent: lymphadenopathy - Respiratory Respiratory exam: Present: decreased breath sounds, rhonchi, wheezes. Absent: accessory muscle use, rales - Cardiovascular Cardiovascular exam: Present: RRR, +S1, +S2. Absent: diastolic murmur, gallop, rubs, systolic murmur - GI/Abdominal GI/Abdominal exam: Present: normal bowel sounds, soft, no peritoneal signs. Absent: distended, tenderness - Extremities Exam Extremities exam: Present: warm, radial pulses palpable and symmetrical. Absent : calf tenderness, cyanotic, pedal edema - Neurological Exam Neurological exam: Present: CN II-XII intact, oriented X3, no focal deficits. Absent: pronater drift, facial droop, speech deficit - Skin Skin exam: Present: dry, intact Internal Medicine: Result - Labs CBC & Chem 7: 08/16/17 04:34 08/16/17 04:34 Labs: Short CBC 08/16/17 Range/Units 04:34 WBC 15.6 H (4.3-11.1) K/mcL Hgb 12.4 (11.5-15.4) g/dL Hct 38.0 (35.3-44.9) % Plt Count 228 (140-400) K/mcL Neutrophils # 14.0 H (1.6-8.9) K/mcL BMP 08/16/17 04:34 Sodium 139 Potassium 4.2 Chloride 107 Carbon Dioxide 22 BUN 16 Creatinine 0.68 Glucose 184 H Calcium 8.9 Cardiac Enzymes 08/15/17 Range/Units 23:30 Troponin I 0.00 (0-0.03) ng/mL - ABG Interpretation ABG results: PT/INR, D-dimer PT 37.4 Seconds (9.4-12.1) H 08/16/17 04:34 D-Dimer < 215 ng/mLFEU (0-500) 08/15/17 10:50 - VTE Reasons for not Prescribing Prophylaxis: Not indicated-Anticoagulated or INR therapeutic Consult Discharge Plan - Plan Referrals: Maurisio Ward MD [Primary Care Provider] -
[2017-08-16] MEDS: Doxycycline 100 MG CAPSULE PO SCH (22:16)
[2017-08-16] MEDS: Insulin DETEMIR 100 UNIT/ML X5UNITS SQ SCH (22:16)
[2017-08-16] MEDS: *HR* LORazepam 0.5 MG TABLET PO SCH (22:16)
[2017-08-16] MEDS: Acetaminophen 325 MG TABLET PO PRN (22:18)
[2017-08-17] MEDS: methylPREDNISolone 125 MG/2 ML VIAL IVP SCH ×4 (02:01→19:53)
[2017-08-17] MEDS: Ipratropium/Albuterol Neb 3 ML IH SCH ×4 (03:26→21:08)
[2017-08-17 03:29] LABS: INR 2.9; Prothrombin Time 31.8 Seconds (9.4-12.1)
--- NOTE | 2017-08-17 06:10 | Electrocardiograph Report ---
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
[2017-08-17] MEDS: hydrOXYzine pamoate 25 MG CAPSULE PO SCH ×3 (07:43→19:52)
[2017-08-17] MEDS: Doxycycline 100 MG CAPSULE PO SCH ×2 (07:43→19:52)
[2017-08-17] MEDS: FLUoxetine 20 MG CAPSULE PO SCH (07:44)
[2017-08-17] MEDS: Ibuprofen 400 MG TABLET PO SCH (07:44)
[2017-08-17] MEDS: Famotidine 20 MG TABLET PO SCH ×2 (07:44→19:52)
[2017-08-17] MEDS: Aspirin 81 MG TAB.CHEW PO SCH (07:44)
[2017-08-17] MEDS: Isosorbide MONOnitrate (24 HR) 60 MG TAB.ER.24H PO SCH (07:44)
[2017-08-17] MEDS: Gabapentin 300 MG CAPSULE PO SCH ×3 (07:44→19:52)
[2017-08-17] MEDS: Nicotine 14 MG PATCH.TD24 TD SCH (07:45)
[2017-08-17] MEDS: Insulin LISPRO 300 UNITS/3 ML VIAL SQ SCH ×4 (07:46→19:54)
[2017-08-17 09:18] LABS: Hematocrit 36.6 % (35.3-44.9); Hemoglobin 12.2 g/dL (11.5-15.4); Mean Corpuscular HGB Conc 33.3 g/dL (31.6-35.5); Mean Corpuscular Hemoglobin 29.7 pg (28.0-33.3); Mean Corpuscular Volume 89.1 fL (83.0-100.0); Mean Platelet Volume 9.4 fL (9.4-12.4); Platelet Count 205 K/mcL (140-400); Red Blood Count 4.11 M/mcL (3.82-4.97); Red Cell Distribution Width 13.2 % (11.5-14.5)
[2017-08-17] MEDS: Acetaminophen 325 MG TABLET PO PRN ×2 (11:49→17:41)
[2017-08-17] MEDS: *HR* HYDROcodone/Acet 5/325 mg TABLET PO PRN (14:22)
[2017-08-17] MEDS: cefTRIAXone 1,000 MG in Water for inj. (sterile) 10 ML IVP SCH (14:23)
--- NOTE | 2017-08-17 16:08 | Internal Med Progress Note ---
Date of Encounter: 08/17/17 Time of Encounter: 16:07 - Assessment and plan (1) Acute exacerbation of chronic obstructive airways disease Current Visit: No Status: Acute (2) Diabetes mellitus type 2 in obese Current Visit: Yes Status: Chronic (3) HTN (hypertension) Current Visit: Yes Status: Acute Qualifiers: Hypertension type: essential hypertension Qualified Code(s): I10 - Essential (primary) hypertension (4) HLD (hyperlipidemia) Current Visit: Yes Status: Acute Qualifiers: Hyperlipidemia type: unspecified Qualified Code(s): E78.5 - Hyperlipidemia , unspecified (5) CAD (coronary artery disease) Current Visit: Yes Status: Acute Qualifiers: Coronary Disease-Associated Artery/Lesion type: [place] artery [place] vs. transplanted heart: [place] heart Associated angina: without angina Qualified Code(s): I25.10 - Atherosclerotic heart disease of [place] coronary artery without angina pectoris - Subjective Interval history: Admitted for acute exacerbation of COPD. History of chronic A. fib and hypertension diabetes. Is still quite wheezy and will intensify her COPD treatment. Complaining of pleuritic left-sided chest pain ibuprofen added. No chest pain has resolved. INR is 2.9 and Coumadin can be resumed. White count was gone up we added IV Rocephin to doxycycline. Repeat CBC in the morning. Overall improving slowly continue current treatment. rate control - Constitutional Vitals: Temp Pulse Resp BP Pulse Ox 97.7 F 78 17 128/66 96 08/17/17 11:04 08/17/17 11:04 08/17/17 16:05 08/17/17 11:04 08/17/17 16:05 General appearance: Present: mild distress, A&O X 3, obese, answers questions appropriately - Head Head exam: Present: atraumatic, normocephalic - Eye Eye exam: Present: PERRL, conjuntiva pink, sclera anicteric Pupils: Present: PERRL - Neck Neck exam general surgery: Present: supple, trachea midline. Absent: lymphadenopathy - Respiratory Respiratory exam: Present: decreased breath sounds, wheezes. Absent: accessory muscle use, rales, rhonchi - Cardiovascular Cardiovascular exam: Present: irregular rhythm, +S1, +S2. Absent: diastolic murmur, gallop, rubs, systolic murmur - GI/Abdominal GI/Abdominal exam: Present: normal bowel sounds, soft, no peritoneal signs. Absent: distended, tenderness - Extremities Exam Extremities exam: Present: warm, radial pulses palpable and symmetrical. Absent : calf tenderness, cyanotic, pedal edema - Neurological Exam Neurological exam: Present: CN II-XII intact, oriented X3, no focal deficits. Absent: pronater drift, facial droop, speech deficit - Skin Skin exam: Present: dry, intact Internal Medicine: Result - Labs CBC & Chem 7: 08/17/17 09:11 08/16/17 04:34 Labs: Short CBC 08/17/17 Range/Units 09:11 WBC 14.5 H (4.3-11.1) K/mcL Hgb 12.2 (11.5-15.4) g/dL Hct 36.6 (35.3-44.9) % Plt Count 205 (140-400) K/mcL - ABG Interpretation ABG results: PT/INR, D-dimer PT 31.8 Seconds (9.4-12.1) H 08/17/17 02:54 D-Dimer < 215 ng/mLFEU (0-500) 08/15/17 10:50 - VTE Reasons for not Prescribing Prophylaxis: Not indicated-Anticoagulated or INR therapeutic Consult Discharge Plan - Plan Referrals: Maurisio Ward MD [Primary Care Provider] -
[2017-08-17] MEDS ORDERED: *HR* Warfarin 3 MG TABLET PO ONE (18:00)
[2017-08-17] MEDS: *HR* LORazepam 0.5 MG TABLET PO SCH (19:53)
[2017-08-18] MEDS: Insulin DETEMIR 100 UNIT/ML X5UNITS SQ SCH ×3 (00:13→20:40)
[2017-08-18] MEDS: methylPREDNISolone 125 MG/2 ML VIAL IVP SCH ×3 (03:30→17:33)
[2017-08-18] MEDS: Ipratropium/Albuterol Neb 3 ML IH SCH ×4 (03:50→22:21)
[2017-08-18 06:52] LABS: Basophils # 0.1 K/mcL (0.0-0.2); Basophils % 0.4 %; Hematocrit 38.1 % (35.3-44.9); Hemoglobin 12.7 g/dL (11.5-15.4); Immature Granulocytes % 2.9 % (0-4); Lymphocytes # 1.1 K/mcL (0.6-4.6); Lymphocytes % 7.1 %; Mean Corpuscular HGB Conc 33.3 g/dL (31.6-35.5); Mean Corpuscular Hemoglobin 29.3 pg (28.0-33.3); Mean Platelet Volume 9.7 fL (9.4-12.4); Monocytes # 0.7 K/mcL (0.0-1.3); Monocytes % 4.5 %; Neutrophils # 13.5 K/mcL (1.6-8.9); Platelet Count 191 K/mcL (140-400); Red Blood Count 4.33 M/mcL (3.82-4.97); Red Cell Distribution Width 13.1 % (11.5-14.5); Segmented Neutrophils % 85.1 %
[2017-08-18 06:58] LABS: INR 2.1; Prothrombin Time 22.5 Seconds (9.4-12.1)
[2017-08-18] MEDS: hydrOXYzine pamoate 25 MG CAPSULE PO SCH ×3 (08:16→20:39)
[2017-08-18] MEDS: FLUoxetine 20 MG CAPSULE PO SCH (08:16)
[2017-08-18] MEDS: Gabapentin 300 MG CAPSULE PO SCH ×3 (08:17→20:39)
[2017-08-18] MEDS: Doxycycline 100 MG CAPSULE PO SCH ×2 (08:17→20:38)
[2017-08-18] MEDS: Isosorbide MONOnitrate (24 HR) 60 MG TAB.ER.24H PO SCH (08:17)
[2017-08-18] MEDS: Famotidine 20 MG TABLET PO SCH ×2 (08:17→20:39)
[2017-08-18] MEDS: Aspirin 81 MG TAB.CHEW PO SCH (08:17)
[2017-08-18] MEDS: Insulin LISPRO 300 UNITS/3 ML VIAL SQ SCH ×4 (08:18→20:41)
[2017-08-18] MEDS: Nicotine 14 MG PATCH.TD24 TD SCH (08:18)
[2017-08-18] MEDS: Acetaminophen 325 MG TABLET PO PRN ×2 (11:38→17:33)
[2017-08-18] MEDS: *HR* HYDROcodone/Acet 5/325 mg TABLET PO PRN (12:45)
--- NOTE | 2017-08-18 14:12 | Internal Med Progress Note ---
Date of Encounter: 08/18/17 Time of Encounter: 14:11 - Assessment and plan (1) Acute exacerbation of chronic obstructive airways disease Current Visit: Yes Status: Acute (2) Diabetes mellitus type 2 in obese Current Visit: Yes Status: Chronic (3) HTN (hypertension) Current Visit: Yes Status: Acute Qualifiers: Hypertension type: essential hypertension Qualified Code(s): I10 - Essential (primary) hypertension (4) HLD (hyperlipidemia) Current Visit: Yes Status: Acute Qualifiers: Hyperlipidemia type: unspecified Qualified Code(s): E78.5 - Hyperlipidemia , unspecified (5) CAD (coronary artery disease) Current Visit: Yes Status: Acute Qualifiers: Coronary Disease-Associated Artery/Lesion type: [place] artery [place] vs. transplanted heart: [place] heart Associated angina: without angina Qualified Code(s): I25.10 - Atherosclerotic heart disease of [place] coronary artery without angina pectoris - Subjective Interval history: Admitted for acute exacerbation of COPD. History of chronic A. fib and hypertension diabetes. Slowly improvement, less wheezing on exam, continue current treatment and can reduce IV Solu-Medrol to 60 mg twice a day. Complaining of pleuritic left-sided chest pain ibuprofen added. No chest pain has resolved. INR is 2.1 and Coumadin can be resumed. White count was gone up we added IV Rocephin to doxycycline. Repeat CBC in the morning. Overall improving slowly continue current treatment. rate control - Constitutional Vitals: Temp Pulse Resp BP Pulse Ox 98.1 F 83 16 133/73 95 08/18/17 11:35 08/18/17 11:35 08/18/17 11:35 08/18/17 11:35 08/18/17 11:35 General appearance: Present: mild distress, A&O X 3, obese, answers questions appropriately - Head Head exam: Present: atraumatic, normocephalic - Eye Eye exam: Present: PERRL, conjuntiva pink, sclera anicteric Pupils: Present: PERRL - Neck Neck exam general surgery: Present: supple, trachea midline. Absent: lymphadenopathy - Respiratory Respiratory exam: Present: CTAB, wheezes. Absent: accessory muscle use, rales, rhonchi - Cardiovascular Cardiovascular exam: Present: RRR, +S1, +S2. Absent: diastolic murmur, gallop, rubs, systolic murmur - GI/Abdominal GI/Abdominal exam: Present: normal bowel sounds, soft, no peritoneal signs. Absent: distended, tenderness - Extremities Exam Extremities exam: Present: warm, radial pulses palpable and symmetrical. Absent : calf tenderness, cyanotic, pedal edema - Neurological Exam Neurological exam: Present: CN II-XII intact, oriented X3, no focal deficits. Absent: pronater drift, facial droop, speech deficit - Skin Skin exam: Present: dry, intact Internal Medicine: Result - Labs CBC & Chem 7: 08/18/17 05:26 08/16/17 04:34 Labs: Short CBC 08/18/17 Range/Units 05:26 WBC 15.8 H (4.3-11.1) K/mcL Hgb 12.7 (11.5-15.4) g/dL Hct 38.1 (35.3-44.9) % Plt Count 191 (140-400) K/mcL Neutrophils # 13.5 H (1.6-8.9) K/mcL - ABG Interpretation ABG results: PT/INR, D-dimer PT 22.5 Seconds (9.4-12.1) H 08/18/17 05:26 D-Dimer < 215 ng/mLFEU (0-500) 08/15/17 10:50 - VTE Reasons for not Prescribing Prophylaxis: Not indicated-Anticoagulated or INR therapeutic Consult Discharge Plan - Plan Referrals: Maurisio Ward MD [Primary Care Provider] -
[2017-08-18] MEDS: cefTRIAXone 1,000 MG in Water for inj. (sterile) 10 ML IVP SCH (14:35)
[2017-08-18] MEDS ORDERED: *HR* Warfarin 3 MG TABLET PO ONE (18:00)
[2017-08-18] MEDS: *HR* LORazepam 0.5 MG TABLET PO SCH (20:39)
[2017-08-19 03:37] LABS: Hematocrit 37.3 % (35.3-44.9); Hemoglobin 12.2 g/dL (11.5-15.4); Mean Corpuscular HGB Conc 32.7 g/dL (31.6-35.5); Mean Corpuscular Hemoglobin 28.9 pg (28.0-33.3); Mean Corpuscular Volume 88.4 fL (83.0-100.0); Mean Platelet Volume 9.7 fL (9.4-12.4); Platelet Count 196 K/mcL (140-400); Red Blood Count 4.22 M/mcL (3.82-4.97); Red Cell Distribution Width 13.1 % (11.5-14.5)
[2017-08-19 03:49] LABS: INR 2.5; Prothrombin Time 27.8 Seconds (9.4-12.1)
[2017-08-19] MEDS: Ipratropium/Albuterol Neb 3 ML IH SCH ×2 (03:58→11:07)
[2017-08-19 04:03] LABS: Monocytes # 0.3 K/mcL (0.0-1.3); Platelet Estimate Normal (Normal)
[2017-08-19] MEDS: methylPREDNISolone 125 MG/2 ML VIAL IVP SCH (06:32)
[2017-08-19] MEDS: Doxycycline 100 MG CAPSULE PO SCH (07:55)
[2017-08-19] MEDS: hydrOXYzine pamoate 25 MG CAPSULE PO SCH (07:55)
[2017-08-19] MEDS: Insulin LISPRO 300 UNITS/3 ML VIAL SQ SCH ×2 (07:56→11:39)
[2017-08-19] MEDS: Gabapentin 300 MG CAPSULE PO SCH (07:56)
[2017-08-19] MEDS: Aspirin 81 MG TAB.CHEW PO SCH (07:56)
[2017-08-19] MEDS: Famotidine 20 MG TABLET PO SCH (07:56)
[2017-08-19] MEDS: Isosorbide MONOnitrate (24 HR) 60 MG TAB.ER.24H PO SCH (07:56)
[2017-08-19] MEDS: Nicotine 14 MG PATCH.TD24 TD SCH (07:56)
[2017-08-19] MEDS: FLUoxetine 20 MG CAPSULE PO SCH (07:56)
[2017-08-19] MEDS: *HR* HYDROcodone/Acet 5/325 mg TABLET PO PRN (10:05)
[2017-08-19 11:29] VITALS: BP 141/57
--- NOTE | 2017-08-19 14:01 | Discharge Summary ---
Date of Encounter: 08/19/17 Time of Encounter: 13:54 - Discharge Diagnosis (1) Acute exacerbation of chronic obstructive airways disease Priority: Primary Status: Acute (2) Diabetes mellitus type 2 in obese Priority: Secondary Status: Chronic (3) HTN (hypertension) Priority: Secondary Status: Acute Qualifiers: Hypertension type: essential hypertension Qualified Code(s): I10 - Essential (primary) hypertension (4) HLD (hyperlipidemia) Priority: Secondary Status: Acute Qualifiers: Hyperlipidemia type: unspecified Qualified Code(s): E78.5 - Hyperlipidemia , unspecified (5) CAD (coronary artery disease) Priority: Secondary Status: Acute Qualifiers: Coronary Disease-Associated Artery/Lesion type: [place] artery [place] vs. transplanted heart: [place] heart Associated angina: without angina Qualified Code(s): I25.10 - Atherosclerotic heart disease of [place] coronary artery without angina pectoris - Discharge Medications Prescriptions: Doxycycline 100 mg PO BID #14 capsule GuaiFENesin ER [Mucinex] 1,200 mg PO BID #20 tbbp.12hr Home Medications: Budesonide/Formoterol 160/4.5 [Symbicort 160/4.5] 2 puff IH BIDR 12/30/16 [ History] Insulin ASPART [NovoLOG] 2 - 10 unit SQ TIDWM PRN 12/30/16 [History] Insulin Glargine,Hum.rec.anlog [Lantus Solostar] 36 unit SQ HS 12/30/16 [History ] Levalbuterol Tartrate [Xopenex Hfa] 1 puff IH BID 12/30/16 [History] Nitroglycerin [Nitrostat] 0.4 mg SL AD PRN 12/30/16 [History] Ranitidine HCl [Acid [facility]] 150 mg PO BID 12/30/16 [History] Tiotropium [Spiriva] 18 mcg IH DAILY 12/30/16 [History] Calcium Polycarbophil [Fibercon] 625 mg PO DAILY 03/15/17 [History] Oxygen 2 l NS HS 03/15/17 [History] Diphenoxylate/Atropine [Lomotil 2.5 mg/0.025 mg] 1 tab PO QID PRN 06/10/17 [ History] LORazepam [Ativan] 0.5 mg PO HS #30 tablet 06/13/17 [Rx] FLUoxetine HCl [Prozac] 40 mg PO DAILY #60 06/20/17 [Rx] hydrOXYzine pamoate [HydrOXYzine Pamoate] 50 mg PO TID #90 06/20/17 [Rx] Gabapentin [Neurontin] 300 mg PO TID 06/23/17 [History] Atorvastatin [Lipitor] 40 mg PO HS 07/03/17 [History] Meclizine [Antivert] 12.5 mg PO TID PRN #90 tablet 07/06/17 [Rx] HYDROcodone/Acet 5/325 mg [[place] 5-325 mg] 1 tab PO Q8H PRN 07/20/17 [History] Isosorbide MONOnitrate (24 HR) [Imdur] 60 mg PO DAILY 07/20/17 [History] Lurasidone [Latuda] 40 mg PO DAILY 07/20/17 [History] Quetiapine Fumarate [Seroquel] 300 mg PO HS 07/20/17 [History] Warfarin [Coumadin] 3 mg PO SUMOWETHFR 07/20/17 [History] Aspirin 81 mg PO DAILY #30 tab.chew 07/22/17 [Rx] Metoprolol [Lopressor] 12.5 mg PO BID #60 tablet 07/22/17 [Rx] predniSONE [PredniSONE] 60 mg PO DAILY #15 tablet 08/13/17 [Rx] Warfarin [Coumadin] 4.5 mg PO TUSA 08/15/17 [History] Doxycycline 100 mg PO BID #14 capsule 08/19/17 [Rx] GuaiFENesin ER [Mucinex] 1,200 mg PO BID #20 tbbp.12hr 08/19/17 [Rx] Ipratropium/Albuterol Neb [Duoneb] 3 ml IH [id number] inhsol 08/19/17 [Rx] Nicotine Patch [Nicoderm] 14 mg TD DAILY patch.td24 08/19/17 [Rx] Allergies/Adverse Reactions: 3 Allergy/AdvReac Type Severity Reaction Status Date / Time baclofen Allergy Itching Verified 08/03/17 23:34 ciprofloxacin [From Cipro] Allergy Hives Verified 08/03/17 23:34 latex Allergy Rash Verified 08/03/17 23:34 Penicillins Allergy Hives Verified 08/03/17 23:34 prednisone Allergy Itching Verified 08/03/17 23:34 sulfamethoxazole Allergy Hives Verified 08/03/17 23:34 [From Bactrim] trimethoprim [From Bactrim] Allergy Hives Verified 08/03/17 23:34 cefdinir AdvReac Vomiting Verified 08/03/17 23:34 Oxycodone AdvReac Hallucinati Verified 08/03/17 23:34 ng Date of admission: 08/16/17 20:10 Primary care physician: Maurisio Ward MD Discharging clinician: Darrell Gomez Anticipated date of discharge: 08/19/17 - Patient Status Disposition: Home, Self-Care Condition: Fair Overall status at discharge: patient is progressing back to baseline - Discharge Instructions Follow Up With: Maurisio Ward MD [Primary Care Provider] - (WEB REQUEST SENT ON 08/18/17 ) Hospital course: Ms. Strong is a 52 year old female admitted for COPD exacerbation and was treated with nebulizers and doxycycline and IV steroids. At today's lung examination is clear and she has tolerated the wean well. She can be discharged home on prednisone and nebulizers and doxycycline. - Time Spent with Patient Total time spent providing and/or coordinating discharge services: Greater than 30 minutes - Constitutional Vitals: Temp Pulse Resp BP Pulse Ox 98.1 F 81 15 141/57 97 08/19/17 11:27 08/19/17 11:27 08/19/17 11:27 08/19/17 11:27 08/19/17 11:27 General appearance: Present: mild distress, A&O X 3, obese, answers questions appropriately - Head Head exam: Present: atraumatic, normocephalic - Eye Eye exam: Present: PERRL, conjuntiva pink, sclera anicteric Pupils: Present: PERRL - Neck Neck exam general surgery: Present: supple, trachea midline. Absent: lymphadenopathy - Respiratory Respiratory exam: Present: CTAB. Absent: accessory muscle use, rales, rhonchi, wheezes - Cardiovascular Cardiovascular exam: Present: RRR, +S1, +S2. Absent: diastolic murmur, gallop, rubs, systolic murmur - GI/Abdominal GI/Abdominal exam: Present: normal bowel sounds, soft, no peritoneal signs. Absent: distended, tenderness - Extremities Exam Extremities exam: Present: warm, radial pulses palpable and symmetrical. Absent : calf tenderness, cyanotic, pedal edema - Neurological Exam Neurological exam: Present: CN II-XII intact, oriented X3, no focal deficits. Absent: pronater drift, facial droop, speech deficit - Skin Skin exam: Present: dry, intact - VTE Reasons for not Prescribing Prophylaxis: Not indicated-Anticoagulated or INR therapeutic
[2017-08-19] MEDS ORDERED: *HR* Warfarin 3 MG TABLET PO ONE (18:00)
== END 2017-08-19 14:00 | disposition home or self-care (01) | DRG 190 ==
LOC: 2ANU 09:41 → EMEROO 09:41 → 2ANU 12:52
PROVIDERS: ADMIT Internal Medicine; ATTEND Internal Medicine

== ENCOUNTER 2017-08-29 16:42 | Observation (INO) ==
--- NOTE | 2017-08-29 16:59 | Emergency Department Note ---
Disposition Clinical Impression: Stroke Qualifiers: CVA mechanism: unspecified Qualified Code(s): I63.9 - Cerebral infarction, unspecified Disposition: Admitted As Inpatient Condition: Fair Referrals: Maurisio Ward MD [Primary Care Provider] - Forms: ED Satisfaction Letter General Adult HPI - General Chief complaint: ED Neuro Symptoms/Deficit Stated complaint: Slurred speech Time Seen by Provider: 08/29/17 16:51 Source: patient, family Limitations: no limitations Nursing Notes Reviewed: Yes Vital Signs Reviewed: Yes - History of Present Illness HPI Narrative: Patient with past medical history of atrial fibrillation on Coumadin, COPD, coronary artery disease, diabetes, hypertension, [place], peripheral artery disease, TIA who received TPA approximately 2 months ago on July 01 and transfer to the [facility] for evaluation of strokelike symptoms. The patient awoke from her nap around 3:00. Patient's last known well was 2:00 prior to her nap. Patient's symptoms include paresthesias to left arm as well as left arm weakness and pronator drift. Patient has dysarthria. Normal sensation to the face. Stroke alert called. Pain Scale: 6 - Related Data Home Medications Medication Instructions Recorded Confirmed Budesonide/Formoterol 160/4.5 2 puff IH BIDR 12/30/16 08/15/17 [Symbicort 160/4.5] Insulin ASPART [NovoLOG] 2 - 10 unit SQ TIDWM PRN 12/30/16 08/15/17 Insulin Glargine,Hum.rec.anlog 36 unit SQ HS 12/30/16 08/15/17 [Lantus Solostar] Levalbuterol Tartrate [Xopenex Hfa] 1 puff IH BID 12/30/16 08/15/17 Nitroglycerin [Nitrostat] 0.4 mg SL AD PRN 12/30/16 08/15/17 Ranitidine HCl [Acid Airplane Cabin Attendant] 150 mg PO BID 12/30/16 08/15/17 Tiotropium [Spiriva] 18 mcg IH DAILY 12/30/16 08/15/17 Calcium Polycarbophil [Fibercon] 625 mg PO DAILY 03/15/17 08/15/17 Oxygen 2 l NS 03/15/17 08/15/17 Diphenoxylate/Atropine [Lomotil 1 tab PO QID PRN 06/10/17 08/15/17 2.5 mg/0.025 mg] Atorvastatin [Lipitor] 40 mg PO HS 07/03/17 08/15/17 HYDROcodone/Acet 5/325 mg [[place] 1 tab PO Q8H PRN 07/20/17 08/15/17 5-325 mg] Isosorbide MONOnitrate (24 HR) 60 mg PO DAILY 07/20/17 08/15/17 [Imdur] Quetiapine Fumarate [Seroquel] 300 mg PO HS 07/20/17 08/16/17 Warfarin [Coumadin] 3 mg PO SUMOWETHFR 07/20/17 08/15/17 Warfarin [Coumadin] 4.5 mg PO TUSA 08/15/17 08/15/17 Diltiazem HCl [Diltiazem ER] 120 mg PO DAILY 08/29/17 08/29/17 Gabapentin [Neurontin] 400 mg PO TID 08/29/17 08/29/17 Meclizine [Antivert] 12.5 mg PO BID 08/29/17 08/29/17 Previous Rx's Medication Instructions Recorded LORazepam [Ativan] 0.5 mg PO HS #30 tablet 06/13/17 FLUoxetine HCl [Prozac] 40 mg PO DAILY #60 06/20/17 hydrOXYzine pamoate [HydrOXYzine 50 mg PO TID #90 06/20/17 Pamoate] Aspirin 81 mg PO DAILY #30 tab.chew 07/22/17 Metoprolol [Lopressor] 12.5 mg PO BID #60 tablet 07/22/17 Ipratropium/Albuterol Neb [Duoneb] 3 ml IH [id number] inhsol 08/19/17 Nicotine Patch [Nicoderm] 14 mg TD DAILY patch.td24 08/19/17 Allergies Allergy/AdvReac Type Severity Reaction Status Date / Time baclofen Allergy Itching Verified 08/03/17 23:34 ciprofloxacin [From Cipro] Allergy Hives Verified 08/03/17 23:34 latex Allergy Rash Verified 08/03/17 23:34 Penicillins Allergy Hives Verified 08/03/17 23:34 prednisone Allergy Itching Verified 08/03/17 23:34 sulfamethoxazole Allergy Hives Verified 08/03/17 23:34 [From Bactrim] trimethoprim [From Bactrim] Allergy Hives Verified 08/03/17 23:34 cefdinir AdvReac Vomiting Verified 08/03/17 23:34 Oxycodone AdvReac Hallucinati Verified 08/03/17 23:34 ng All systems ED: reviewed and negative except as stated. Constitutional: Reports: weakness. Denies: fever, chills Cardiovascular: Denies: chest pain, palpitations Integumentary: Denies: rash Neurological: Reports: weakness, numbness, paresthesias, other (Dysarthria) Past Medical History - Past Medical History Medical history: Reports: arthritis, asthma, atrial fibrillation, COPD, coronary artery disease, CVA, diabetes, GERD, hyperlipidemia, hypertension, migraine, myocardial infarction, peripheral artery disease, TIA, other Surgical history: Reports: angioplasty/stent, appendectomy, cholecystectomy, knee replacement, other Psychiatric history: Reports: anxiety, depression, prior suicide attempt, previous psychiatric hospitalization [employer]UR[employer] AGENT history: Reports: bilateral 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 - Social History Smoking Status: Current every day smoker Smokeless Tobacco Status: No Alcohol use: Reports: rarely Drug use: Reports: none Physical Exam - General Limitations: no limitations General appearance: alert - Head Head exam: atraumatic, normocephalic - Eye Eye exam: Present: normal appearance, PERRL, EOMI - ENT ENT exam: normal exam - Neck Neck exam: Present: normal inspection - Chest Chest inspection: Present: normal inspection, symmetric chest wall rise. Absent : tenderness - Respiratory Respiratory exam: Present: normal lung sounds bilaterally. Absent: respiratory distress - Cardiovascular Cardiovascular exam: Present: regular rate, irregular rhythm - Abdominal Exam Abdominal exam: Present: soft, Non-Tender - Extremities Exam Extremities exam: Present: normal inspection. Absent: tenderness - Back Exam Back exam: Present: normal inspection - Neurological Exam Neurological exam: Present: alert, oriented X3 - Expanded Neurological Exam Patient oriented to: Present: person, place, time Speech: Present: expressive aphasia Cranial nerves: EOM function (II, III, IV, ): Normal, facial sensation (V): Normal, facial palsy (VII): Normal, gag reflex (IX): Normal, spinal accessory function (XI): Normal, tongue deviation (XII): Normal Cerebellar function: finger to nose: Normal, heel to zheng: Normal Cerebellar function: normal gait Motor strength - LUE: 4/5 Motor strength - RUE: 5/5 Motor strength - LLE: 4/5 Motor strength - RLE: 5/5 Sensory exam upper extremity: light touch: Abnormal Left Sensory exam lower extremity: light touch: Abnormal Left Coma Scale Eye Opening: Spontaneous Coma Scale Motor Response: Obeys Commands Coma Scale Verbal Response: Oriented Coma Scale Total: 15 - Psychiatric Psychiatric exam: Present: flat affect - Skin Skin exam: Present: warm, dry Course - Reevaluation(s) Reevaluation #1: Upon reevaluation the patient states she now has a headache as well as chest pain. Chest pain described as in the center of her chest. Reevaluation #2: Patient symptoms are improving. Her initial NIH was 6. Patient's speech has improved by approximately 75%. 20:05 - Consultations Consultation #1: [facility] has been paged but has not called the robot. We are continuing to wait for [facility] evaluation. She does have contrast indication of acute stroke less than 3 months ago. Consultation #2: Continuing to wait for [facility] call back Time: 17:26 Consultation #3: Discussed with [facility]. The robot is not working at this time. She is not a candidate for TPA with the recent stroke. They would like a CTA head and neck to determine if there is another intervention that needs to be performed. [address] Gross Patient accepted. 20:29 Vital Signs Temperature 99.8 F H 08/29/17 16:44 Pulse Rate 81 08/29/17 16:44 Respiratory Rate 18 08/29/17 16:44 Blood Pressure 112/70 08/29/17 16:44 O2 Sat by Pulse Oximetry 97 08/29/17 16:44 Temperature 99.8 F H 08/29/17 16:44 Pulse Rate 84 08/29/17 17:14 Respiratory Rate 16 08/29/17 17:14 Blood Pressure 121/67 08/29/17 17:14 O2 Sat by Pulse Oximetry 99 08/29/17 17:14 Oxygen Delivery Oxygen Delivery Nasal Cannula Medical Decision Making - Lab Data Result diagrams: 08/29/17 16:59 08/29/17 16:59 Lab Results 08/29/17 08/29/17 08/29/17 Range/Units 16:59 16:59 16:59 WBC 10.6 (4.3-11.1) K/mcL RBC 4.32 (3.82-4.97) M/mcL Hgb 12.6 (11.5-15.4) g/dL Hct 38.1 (35.3-44.9) % MCV 88.2 (83.0-100.0) fL MCH 29.2 (28.0-33.3) pg MCHC 33.1 (31.6-35.5) g/dL RDW 13.3 (11.5-14.5) % Plt Count 201 (140-400) K/mcL MPV 8.9 L (9.4-12.4) fL Immature Gran % 1.5 (0-4) % Seg Neutrophils % 66.6 % Lymphocytes % 25.3 % Monocytes % 5.4 % Eosinophils % 0.8 % Basophils % 0.4 % Neutrophils # 7.1 (1.6-8.9) K/mcL Lymphocytes # 2.7 (0.6-4.6) K/mcL Monocytes # 0.6 (0.0-1.3) K/mcL Eosinophils # 0.1 (0.0-0.6) K/mcL Basophils # 0.0 (0.0-0.2) K/mcL PT 34.3 H (9.4-12.1) Seconds INR 3.1 APTT 44.0 H (26.0-36.0) Seconds Sodium 141 (136-145) mEq/L Potassium 4.1 (3.5-4.5) mEq/L Chloride 106 (98-109) mEq/L Carbon Dioxide 27 (19-29) mEq/L BUN 11 (7-20) mg/dL Creatinine 0.71 (0.57-1.11) mg/dL Est GFR ( Amer) > 60 (> 60) Est GFR (Non-Af Amer) > 60 (> 60) BUN/Creatinine Ratio 15 (6-26) Glucose 148 H (70-99) mg/dL Calculated Osmolality 294 (280-300) Calcium 8.7 (8.6-10.8) mg/dL Ethyl Alcohol < 10 (0-10) mg/dL
[2017-08-29 17:10] LABS: Basophils % 0.4 %; Eosinophils # 0.1 K/mcL (0.0-0.6); Eosinophils % 0.8 %; Hematocrit 38.1 % (35.3-44.9); Hemoglobin 12.6 g/dL (11.5-15.4); Immature Granulocytes % 1.5 % (0-4); Lymphocytes # 2.7 K/mcL (0.6-4.6); Lymphocytes % 25.3 %; Mean Corpuscular HGB Conc 33.1 g/dL (31.6-35.5); Mean Corpuscular Hemoglobin 29.2 pg (28.0-33.3); Mean Corpuscular Volume 88.2 fL (83.0-100.0); Mean Platelet Volume 8.9 fL (9.4-12.4); Monocytes # 0.6 K/mcL (0.0-1.3); Monocytes % 5.4 %; Neutrophils # 7.1 K/mcL (1.6-8.9); Platelet Count 201 K/mcL (140-400); Red Blood Count 4.32 M/mcL (3.82-4.97); Red Cell Distribution Width 13.3 % (11.5-14.5); Segmented Neutrophils % 66.6 %
[2017-08-29 17:13] LABS: INR 3.1; Prothrombin Time 34.3 Seconds (9.4-12.1)
[2017-08-29 17:22] LABS: BUN/Creatinine Ratio 15 (6-26); Blood Urea Nitrogen 11 mg/dL (7-20); Calcium 8.7 mg/dL (8.6-10.8); Carbon Dioxide 27 mEq/L (19-29); Chloride 106 mEq/L (98-109); Ethanol < 10 mg/dL (0-10); Glucose 148 mg/dL (70-99); Osmolality,Calculated 294 (280-300); Potassium 4.1 mEq/L (3.5-4.5); Sodium 141 mEq/L (136-145); eGFR For African Americans > 60 (> 60); eGFR For Non-African Americans > 60 (> 60)
--- NOTE | 2017-08-29 17:35 | Emergency Department Note ---
START Narrative - START START: I examined this patient and my medical decision-making was reviewed with the Resident Physician. I agree with the documented findings, disposition and treatment plan as described except to the extent set forth below. 52 year old female with HX of strokes and had one in oct, followed by jun 2017 which required tpa and transfer to [facility], presents today with left side upper extremity pronator drift and sensation loss with dysarhtria. [facility] called, last known well was 1400. vanessa not a tpa candidate due to most recent tpa administration on 07/01/17. She had no known defecits from her previous strokes, and recovered from them. We will likey transfer to [facility].
[2017-08-29 18:20] LABS: Bilirubin,Urine Negative (Negative); Blood,Urine Negative (Negative); Clarity,Urine Clear (Clear); Color,Urine Yellow (Yellow); Glucose,Urine (UA) Normal (Normal); Ketones,Urine Negative (Negative); Leukocyte Esterase,Urine Trace (Negative); Nitrite,Urine Negative (Negative); PH,Urine 7.5 pH Units (5.0-8.0); Protein,Urine Negative (Neg-Trace); Specific Gravity,Urine 1.013 (1.010-1.025); Urobilinogen,Urine Normal (Normal)
[2017-08-29 18:22] LABS: Bacteria,Urine None Seen per hpf (None-Few); Hyaline Casts,Urine None Seen per lpf (None-Few); RBC,Urine 0-3 per hpf (0-3); Squamous Epithelial Cell,Urine Many per lpf (None-Few)
[2017-08-29] MEDS ORDERED: *HR* HYDROmorphone (PF) 1 MG/ML SYRINGE IVP ONE ×2 (18:52→22:56)
[2017-08-29] MEDS ORDERED: Ondansetron 4 MG/2 ML VIAL IVP ONE (18:52)
--- NOTE | 2017-08-29 20:35 | Emergency Department Note ---
START Narrative - START START: EKG shows sinus rhythm with ventricular rate of 82. RI interval 175. QRS 138. QTC 467 left bundle branch block. No significant ST elevation or depression. No previous EKG for comparison.
[2017-08-29] MEDS ORDERED: Dextrose Gel 15 GM PO PRN ×4 (22:26→23:10)
[2017-08-29] MEDS ORDERED: D5% in Water 1,000 ML IVC PRN ×2 (22:26→23:10)
[2017-08-29] MEDS ORDERED: *HR* Dextrose 50 % in Water (Syg) 50 ML SYRINGE IVP PRN ×2 (22:26→23:10)
[2017-08-29] MEDS ORDERED: Naloxone 0.4 MG/ML INJ IVP PRN (22:26)
[2017-08-29] MEDS ORDERED: *HR* Metoprolol 5 MG/5 ML VIAL IVP PRN (22:38)
--- NOTE | 2017-08-29 22:43 | Internal Med History&Physical ---
<Volodymyr Quigley - Last Filed: 08/29/17 22:41> Date of Encounter: 08/29/17 Time of Encounter: 22:41 Assessment and Plan (1) TIA (transient ischemic attack) Current visit: Yes Status: Suspected Being admitted for obervation for suspected TIA vs CVA. She has a h/o both TIA and CVA in the past. Today she awoke from her nap the LT arm and LT leg parasthesias, slurred speech and weakness. Symptoms have improved, speech is no longer slurred. She has a Lt arm and Lt leg drift. She is alert and oriented and follows command appropriately. Head CT no acute intracranial abnormalities. CTA head reveals a small 2mm aneursm in the Lt MCA. She has multiple risk factors including smoker, CAD, DM, HLD, HTN. I suspect this is a TIA with such quick improvement of symptoms but continue to r/o CVA. Neuro consult- days team to call Stick BP controll d/t 2mm aneurysm; aneurysm is mall and not emergent Continue ASA, statin and coumadin as well as Imdur, BB, CCB Neuro assessment per protocol, vitals per neuro protocol NIHSS now, dysphagia screening now PT/OT, SS consult. Speech consult Lipid panel, CBC, CMP, MG, PHOS in the morning Serial troponin NPO except sips with med if passed bedside dysphagia screening Continuous tele, continuous spo2 monitoring Qualifiers: Transient cerebral ischemia type: unspecified Qualified Code(s): G45.9 - Transient cerebral ischemic attack, unspecified (2) UTI (urinary tract infection) Current visit: Yes Status: Acute Small leukesterase per UA. Denies any dysuria, frequency, or urgency. Start Ceftriaxone IVPB 1gm daily. Patient reports PCN allery of rash and itching, denies any anaphylaxis. Give Benadryl with dose of ATB Qualifiers: Urinary tract infection type: acute cystitis Hematuria presence: without hematuria Qualified Code(s): N30.00 - Acute cystitis without hematuria (3) Diabetes mellitus type 2 in obese Current visit: Yes Status: Chronic h/o DM, Continue glargine, start LSSIC q6hr coverage, Q6hrs accucheck. NPO (4) Afib Current visit: Yes Status: Chronic h/o, stable, NSR now. Continue coumadin with PT to dose, Continue CCB and BB Qualifiers: Qualified Code(s): I48.0 - Paroxysmal atrial fibrillation (5) Chest pain Current visit: Yes Status: Resolved Dull intermittent chest pressure that is non exertional and without radiation. H/O CAD and LA, troponin negative. Hemodynamically stable, no CP as of this assessment. SL nitro for CP Serial troponins Continuous tele Continuous O2 monitoring Qualifiers: Chest pain type: unspecified Qualified Code(s): R07.9 - Chest pain, unspecified (6) COPD (chronic obstructive pulmonary disease) Current visit: Yes Status: Chronic stable, not in acute exacerbation. No respiratory distress. Duoneb IH Q4HRS SD, ALBUTEROL Q2HRS PRN Qualifiers: Chronic bronchitis type: unspecified Qualified Code(s): J42 - Unspecified chronic bronchitis (7) CAD (coronary artery disease) Current visit: Yes Status: Chronic Continue ASA, Statin, BB, CCB and imdur Qualifiers: Coronary Disease-Associated Artery/Lesion type: [place] artery [place] vs. transplanted heart: [place] heart Associated angina: with stable angina Qualified Code(s): I25.118 - Atherosclerotic heart disease of [place] coronary artery with other forms of angina pectoris (8) HTN (hypertension) Current visit: Yes Status: Acute h/o, stable. Continue imdur, BB, CCB at home dose. 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 Qualifiers: Hypertension type: essential hypertension Qualified Code(s): I10 - Essential (primary) hypertension (9) HLD (hyperlipidemia) Current visit: Yes Status: Acute Continue statin, recheck lipid panel in the morning. Qualifiers: Hyperlipidemia type: unspecified Qualified Code(s): E78.5 - Hyperlipidemia , unspecified (10) Tobacco abuse Current visit: Yes Status: Chronic cessation counseling provided. 14 mg Nicotine patch ordered daily (11) DVT prophylaxis Current visit: Yes Status: Acute Continue coumadin; therapeutic INR Internal Medicine - H&P: HPI Chief complaint: Lt sided weakness, n/t and slurred speech Admitted From: Home Plans for Post Hospital Care: Home History of present illness: Ms. Strong is a 52 year old female with a PMH of afib on coumadin, arthritis, COPD, CAD, DVA, TIA, DM, GERD, HLD, HTN, PAD, AND [place]. Presents to [facility] today with LT sided parasthesias and slurred speech. She had a CVA approximately 2 months ago and received TPA. She reports that she was fine this morning and woke up after her nap with these symptoms. LKW is 2pm. She had a H/A on arrival and presented with dysarthria and parasthesias. CT of head unremarkable. Denies an fevers, chills, SOB, nausea, syncope, palpitations, vision changes, or gait changes. She reports additional concerns or non exertional, non radiating, midsternal intermittent chest discomfort describes as dull. She is being admitted for further workup and observation. Past Med Surg Social Fam HX - Past Medical History Medical history: arthritis, asthma, atrial fibrillation, COPD, coronary artery disease, CVA, diabetes, GERD, hyperlipidemia, hypertension, migraine, myocardial infarction, peripheral artery disease, TIA, other Psychiatric history: anxiety, depression, prior suicide attempt, previous psychiatric hospitalization - Past Surgical History Surgical History: angioplasty/stent, appendectomy, cholecystectomy, knee replacement, other - Social History Smoking Status: Current every day smoker Smokeless Tobacco Status: No Alcohol use: rarely Drug use: none - Family History Father Living Status: Mother Living Status: Hx Family Cardiac Disorders: No Hx Family Respiratory Disorders: Yes (COPD) Hx Family Cancer: No Hx Family GI Disorders: No Hx Family Endocrine Disorder: No Hx Family Neuromuscular Disorders: No Hx Family Neurologic Disorders: No Hx Family HEENT Disorders: No Hx Family Autoimmune Disorders: No Internal Medicine - H&P: Meds Budesonide/Formoterol 160/4.5 [Symbicort 160/4.5] 2 puff IH BIDR 12/30/16 [ History] Insulin ASPART [NovoLOG] 2 - 10 unit SQ TIDWM PRN 12/30/16 [History] Insulin Glargine,Hum.rec.anlog [Lantus Solostar] 36 unit SQ HS 12/30/16 [History ] Levalbuterol Tartrate [Xopenex Hfa] 1 puff IH BID 12/30/16 [History] Nitroglycerin [Nitrostat] 0.4 mg SL Q5M PRN 12/30/16 [History] Ranitidine HCl [Acid Hot Patcher] 150 mg PO BID 12/30/16 [History] Tiotropium [Spiriva] 18 mcg IH DAILY 12/30/16 [History] Calcium Polycarbophil [Fibercon] 625 mg PO DAILY 03/15/17 [History] Oxygen 2 l NS HS 03/15/17 [History] Diphenoxylate/Atropine [Lomotil 2.5 mg/0.025 mg] 1 tab PO QID PRN 06/10/17 [ History] LORazepam [Ativan] 0.5 mg PO HS #30 tablet 06/13/17 [Rx] FLUoxetine HCl [Prozac] 40 mg PO DAILY #60 06/20/17 [Rx] hydrOXYzine pamoate [HydrOXYzine Pamoate] 50 mg PO TID #90 06/20/17 [Rx] Atorvastatin [Lipitor] 40 mg PO HS 07/03/17 [History] HYDROcodone/Acet 5/325 mg [[place] 5-325 mg] 1 tab PO Q8H PRN 07/20/17 [History] Isosorbide MONOnitrate (24 HR) [Imdur] 60 mg PO DAILY 07/20/17 [History] Quetiapine Fumarate [Seroquel] 300 mg PO HS 07/20/17 [History] Warfarin [Coumadin] 3 mg PO SUMOWETHFR 07/20/17 [History] Aspirin 81 mg PO DAILY #30 tab.chew 07/22/17 [Rx] Metoprolol [Lopressor] 12.5 mg PO BID #60 tablet 07/22/17 [Rx] Warfarin [Coumadin] 4.5 mg PO TUSA 08/15/17 [History] Ipratropium/Albuterol Neb [Duoneb] 3 ml IH [id number] inhsol 08/19/17 [Rx] Nicotine Patch [Nicoderm] 14 mg TD DAILY patch.td24 08/19/17 [Rx] Diltiazem HCl [Diltiazem ER] 120 mg PO DAILY 08/29/17 [History] Gabapentin [Neurontin] 400 mg PO TID 08/29/17 [History] Meclizine [Antivert] 12.5 mg PO BID 08/29/17 [History] 3 Allergy/AdvReac Type Severity Reaction Status Date / Time baclofen Allergy Itching Verified 08/03/17 23:34 ciprofloxacin [From Cipro] Allergy Hives Verified 08/03/17 23:34 latex Allergy Rash Verified 08/03/17 23:34 Penicillins Allergy Hives Verified 08/03/17 23:34 prednisone Allergy Itching Verified 08/03/17 23:34 sulfamethoxazole Allergy Hives Verified 08/03/17 23:34 [From Bactrim] trimethoprim [From Bactrim] Allergy Hives Verified 08/03/17 23:34 cefdinir AdvReac Vomiting Verified 08/03/17 23:34 Oxycodone AdvReac Hallucinati Verified 08/03/17 23:34 ng All Systems PM: A 10-system review of systems was performed and is negative for pertinent findings except as documented above in the HPI. - Constitutional Constitutional: fatigue, weakness, no chills, no fever(s), no falls, no night sweats, no weight gain, no weight loss - EENT Eyes: no blurry vision, no change in vision, no discharge, no loss of peripheral vision, no loss of vision, no pain, no photophobia Ears: no ear discharge, no ear pain, no tinnitus Nose, mouth and throat: no dysphagia, no nasal discharge, no neck pain, no sore throat - Cardiovascular Cardiovascular ROS IM: chest pain (INTERMITTENT DISCOMFORT), no diaphoresis, no dyspnea, no edema, no irregular heart rhythm, no lightheadedness, no orthopnea, no palpitations, no paroxysmal nocturnal dyspnea, no syncope - Respiratory Respiratory: no cough, no dyspnea, no hemoptysis, no wheezing, no pain on inspiration, no chest congestion, no excessive phlegm production, no pain with cough - Gastrointestinal Gastrointestinal: no abdominal pain, no diarrhea, no hematemesis, no hematochezia, no melena, no nausea, no vomiting - Genitourinary Genitourinary: no change in urinary stream, no dysuria, no flank pain, no hematuria - Musculoskeletal Musculoskeletal ROS IM: no numbness, no tingling - Integumentary Integumentary IM: no rash, no unusual bruising - Neurological Neurological ROS: abnormal speech (IMPROVED SINCE ARRIVAL), dizziness (CHRONIC) , focal weakness (LEFT ARM AND LEFT LEG WEAKER THAN RIGHT), headache(s) (BEGAN AT 3PM TODAY; HAS IMPROVED SINCE ARRIVAL), numbness (lt arm and lt leg), tingling, weakness (lt arm and lt leg), no abnormal gait, no abnormal hearing, no abnormal movements, no behavioral changes, no confusion, no convulsions, no disequilibrium, no frequent falls, no lack of coordination, no loss of vision, no restless legs, no tremor(s) - Hematologic/Lymphatic Hematologic/Lymphatic: no easy bruising - Constitutional Vitals: Temp Pulse Resp BP Pulse Ox 98.1 F 75 22 118/60 97 08/29/17 21:51 08/29/17 21:51 08/29/17 21:51 08/29/17 21:51 08/29/17 21:51 General appearance: Present: cooperative, A&O X 3, no acute distress, answers questions appropriately - Head Head exam: Present: atraumatic, normocephalic - Eye Eye exam: Present: EOMI, PERRL, conjuntiva pink, sclera anicteric Pupils: Present: PERRL - Neck Neck exam general surgery: Present: supple, trachea midline. Absent: lymphadenopathy - Respiratory Respiratory exam: Present: decreased breath sounds, CTAB. Absent: accessory muscle use, rales, rhonchi, wheezes - Cardiovascular Cardiovascular exam: Present: RRR, +S1, +S2. Absent: bradycardia, diastolic murmur, gallop, rubs, systolic murmur, tachycardia - GI/Abdominal GI/Abdominal exam: Present: normal bowel sounds, soft, no peritoneal signs. Absent: distended, tenderness - Extremities Exam Extremities exam: Present: warm, radial pulses palpable and symmetrical. Absent : calf tenderness, cyanotic, pedal edema - Neurological Exam Neurological exam: Present: oriented X3, pronater drift (LEFT PRONATOR DRIFT). Absent: normal gait (BISHNU), no focal deficits, strengths equal and symetr throughout (right greater than left), facial droop, speech deficit - Expanded Neurological Exam Neurological exam expanded: Absent: expressive aphasia, receptive aphasia Patient oriented to: Present: person, place, time Speech: Present: fluid speech Cranial Nerves: EOM's intact PM: Normal, gag reflex PM: Normal, nystagmus PM: Normal, tongue deviation PM: Normal Cerebellar function: finger to nose: Normal, heel to zheng: Abnormal Left Upper motor neuron: Babinski sign: Normal, Pako neglect: Normal, pronator drift : Abnormal Left Neuro motor strength exam: LUE: 4, RUE: 5, LLE: 4, RLE: 5 Coma Scale Eye Opening: Spontaneous Coma Scale Motor Response: Obeys Commands Coma Scale Verbal Response: Oriented Coma Scale Total: 15 - Skin Skin exam: Present: dry, intact Internal Med - H&P Results - Labs CBC & Chem 7: 08/29/17 16:59 08/29/17 16:59 - EKG Data -: EKG Interpreted by Myself EKG shows normal: sinus rhythm Rate: normal - EKG Data Prior EKG available for review: no When compared to previous EKG: there is no significant change - Diagnostic Studies CT scan - head Status: image reviewed by me Additional comments: no acute intracranial abnormalities Other Images Status: image reviewed by me Additional comments: . CTA OF HEAD: No acute intracranial abnormality. 2 mm aneurysm at left MCA bifurcation, otherwise unremarkable CTA of the head CTA NECK unremarkable - VTE Reasons for not Prescribing Prophylaxis: Not indicated-Anticoagulated or INR therapeutic <Marisel Hahn - Last Filed: 08/30/17 06:35> Date of Encounter: 08/30/17 Internal Medicine - H&P: HPI History of present illness: Ms. Strong is a 52 year old female All Systems PM: A 10-system review of systems was performed and is negative for pertinent findings except as documented above in the HPI. - Constitutional Vitals: Temp Pulse Resp BP Pulse Ox 98 F 79 20 127/68 95 08/30/17 05:22 08/30/17 05:22 08/30/17 05:22 08/30/17 05:22 08/30/17 05:22 Internal Med - H&P Results - Labs CBC & Chem 7: 08/30/17 04:46 08/30/17 04:46 Labs: Short CBC 08/30/17 Range/Units 04:46 WBC 9.0 (4.3-11.1) K/mcL Hgb 12.6 (11.5-15.4) g/dL Hct 39.0 (35.3-44.9) % Plt Count 179 (140-400) K/mcL Neutrophils # 5.9 (1.6-8.9) K/mcL BMP 08/30/17 04:46 Sodium 140 Potassium 4.4 Chloride 103 Carbon Dioxide 28 BUN 12 Creatinine 0.72 Glucose 117 H Calcium 9.1 Cardiac Enzymes 08/29/17 08/30/17 Range/Units 23:02 04:46 Troponin I 0.00 0.00 (0-0.03) ng/mL Liver Function 08/30/17 Range/Units 04:46 Total Bilirubin 0.4 (0.2-1.2) mg/dL AST 18 (5-34) Units/L ALT 36 (0-55) Units/L Alkaline Phosphatase 119 (38-126) Units/L Albumin 3.0 L (3.5-5.0) g/dL - Attending Attestation I have seen and examined the patient independently. I have discussed with MARI Quigley regarding the management plan. Agree with the documentation.
[2017-08-29] MEDS ORDERED: Insulin DETEMIR 100 UNIT/ML X5UNITS SQ SCH (23:00)
[2017-08-29] MEDS ORDERED: Albuterol 2.5 MG/3 ML NEBULIZER IH PRN (23:06)
[2017-08-29] MEDS: hydrOXYzine pamoate 25 MG CAPSULE PO SCH (23:20)
[2017-08-29] MEDS: Ipratropium/Albuterol Neb 3 ML IH SCH (23:54)
[2017-08-30] MEDS: Insulin DETEMIR 100 UNIT/ML X5UNITS SQ SCH ×2 (00:22→21:18)
[2017-08-30] MEDS: Insulin LISPRO 300 UNITS/3 ML VIAL SQ SCH ×4 (00:22→16:57)
[2017-08-30] MEDS: Ipratropium/Albuterol Neb 3 ML IH SCH ×6 (04:07→23:34)
[2017-08-30 05:21] LABS: Basophils # 0.1 K/mcL (0.0-0.2); Basophils % 0.7 %; Eosinophils # 0.1 K/mcL (0.0-0.6); Eosinophils % 1.1 %; Hemoglobin 12.6 g/dL (11.5-15.4); Immature Granulocytes % 1.4 % (0-4); Lymphocytes # 2.3 K/mcL (0.6-4.6); Lymphocytes % 25.8 %; Mean Corpuscular HGB Conc 32.3 g/dL (31.6-35.5); Mean Corpuscular Hemoglobin 28.8 pg (28.0-33.3); Mean Corpuscular Volume 89.2 fL (83.0-100.0); Monocytes # 0.5 K/mcL (0.0-1.3); Monocytes % 5.5 %; Neutrophils # 5.9 K/mcL (1.6-8.9); Platelet Count 179 K/mcL (140-400); Red Blood Count 4.37 M/mcL (3.82-4.97); Red Cell Distribution Width 13.5 % (11.5-14.5); Segmented Neutrophils % 65.5 %
[2017-08-30 05:26] LABS: INR 3.1; Prothrombin Time 34.1 Seconds (9.4-12.1)
[2017-08-30] MEDS: Acetaminophen 325 MG TABLET PO PRN ×3 (05:36→11:48)
[2017-08-30 05:37] LABS: Alanine Aminotransferase 36 Units/L (0-55); Albumin/Globulin Ratio 0.9 (1.1-2.2); Alkaline Phosphatase 119 Units/L (38-126); Aspartate Amino Transferase 18 Units/L (5-34); BUN/Creatinine Ratio 17 (6-26); Bilirubin,Total 0.4 mg/dL (0.2-1.2); Blood Urea Nitrogen 12 mg/dL (7-20); Calcium 9.1 mg/dL (8.6-10.8); Carbon Dioxide 28 mEq/L (19-29); Chloride 103 mEq/L (98-109); Chol/HDL Ratio 4.2 (0-4.9); Cholesterol 209 mg/dL (< 200); Globulin 3.3 g/dL (2.4-3.5); Glucose 117 mg/dL (70-99); HDL Cholesterol 50 mg/dL (40-59); LDL Cholesterol,Calculated 120 mg/dL (0-99); Magnesium 1.9 mg/dL (1.6-2.6); Osmolality,Calculated 291 (280-300); Phosphorous 4.4 mg/dL (2.3-4.7); Potassium 4.4 mEq/L (3.5-4.5); Sodium 140 mEq/L (136-145); Total Protein 6.3 g/dL (6.0-8.3); Triglycerides 195 mg/dL (< 150); eGFR For African Americans > 60 (> 60); eGFR For Non-African Americans > 60 (> 60)
[2017-08-30] MEDS ORDERED: Insulin LISPRO 300 UNITS/3 ML VIAL SQ SCH ×3 (07:30→21:00)
[2017-08-30] MEDS ORDERED: Tiotropium 18 MCG inhalation IH SCH (09:00)
[2017-08-30] MEDS: FLUoxetine 20 MG CAPSULE PO SCH (09:12)
[2017-08-30] MEDS: Isosorbide MONOnitrate (24 HR) 60 MG TAB.ER.24H PO SCH (09:12)
[2017-08-30] MEDS: Famotidine 20 MG TABLET PO SCH ×2 (09:12→15:13)
[2017-08-30] MEDS: hydrOXYzine pamoate 25 MG CAPSULE PO SCH ×3 (09:12→21:30)
[2017-08-30] MEDS: Diltiazem CD (24hr) 120 MG CAPSULE PO SCH (09:12)
[2017-08-30] MEDS: Aspirin 81 MG TAB.CHEW PO SCH (09:14)
[2017-08-30] MEDS: Nicotine 14 MG PATCH.TD24 TD SCH (09:14)
[2017-08-30] MEDS ORDERED: Budesonide/Formoterol 160/4.5 MDI IH SCH (10:00)
[2017-08-30] MEDS ORDERED: Levalbuterol 1 PUFF INHALER IH SCH (10:00)
[2017-08-30] MEDS: Nitrofurantoin (BID) 100 MG CAPSULE PO SCH ×2 (11:48→16:57)
--- NOTE | 2017-08-30 14:21 | Electrocardiograph Report ---
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
[2017-08-30] MEDS: *HR* HYDROcodone/Acet 5/325 mg TABLET PO PRN ×2 (15:12→23:47)
[2017-08-30] MEDS: Gabapentin 400 MG CAPSULE PO SCH ×2 (15:13→21:30)
--- NOTE | 2017-08-30 15:40 | Neurology - Consult Note ---
Date of Encounter: 08/30/17 Time of Encounter: 07:50 Assessment and Plan (1) TIA (transient ischemic attack) Current Visit: Yes Status: Suspected This patient who apparently had an history of a recent stroke about 2 months ago when she has received TPA without much minimal residual symptoms admitted with slurred speech as well as some left upper arm paresthesias and left leg paresthesias and weakness at the moment her speech is back to normal she is not sure that she is to have some weakness of her left lower extremity are not on examination is very limited weakness noted at this time not sure that it is from the residual of her previous stroke or it is a new symptoms. Regardless she did have risk factors for a stroke with a recent stroke it is quite possible that her symptoms is worsening of the old deficit and may not be a new symptoms. She is already on anticoagulation with atrial fibrillation on admission and that it is in the therapeutic range. At the same time check for any other metabolic or infectious etiology that may be contributing to her symptoms. As far as workup do not think that we need to repeat an echocardiogram as she probably have it done in the last 2 months. She also has a history of carotid stenosis, last carotid shows 60-79% on the right and 40-59% on the left, showed that she likely has imaging studies recently at the time of her stroke about 2 months ago but if not perhaps he may need to repeat the carotid to be sure that there is no new underlying worsening of her carotid stenosis. At the moment she is on Coumadin suggested to continue and keep it therapeutic Would not be able to do an MRI because of the bladder stimulator perhaps we may do a CT angiogram to make sure that there is no underlying intracranial atherosclerotic disease or any new stenosis. She would probably benefit from physical therapy evaluation or perhaps short- term rehabilitation Qualifiers: Transient cerebral ischemia type: unspecified Qualified Code(s): G45.9 - Transient cerebral ischemic attack, unspecified (2) History of CVA (cerebrovascular accident) Current Visit: Yes Status: Acute History of Present Illness HPI: Ms. Strong is a 52 year old female with a PMH of afib on coumadin, arthritis, COPD, CAD, DVA, TIA, DM, GERD, HLD, HTN, PAD, AND [place]. Presents to [facility] today with LT sided parasthesias and slurred speech. She had a CVA approximately 2 months ago and received TPA and had work up at [facility]< unable to have MRI due to bladder stimulator, according to pt she was at her baseline this morning and woke up after her nap and noted to have with these symptoms. CT of head unremarkable. Denies an fevers, chills, SOB, nausea, syncope, palpitations, vision changes, or gait changes. She reports exertional, non radiating, midsternal intermittent chest discomfort describes as dull. She is being admitted for further workup and observation, she denied any Headaches now, speech is better back to her base line may be little bit weakness in left leg Past Med Surg Social Fam HX - Past Medical History Medical history: arthritis, asthma, atrial fibrillation, COPD, coronary artery disease, CVA, diabetes, GERD, hyperlipidemia, hypertension, migraine, myocardial infarction, peripheral artery disease, TIA, other Psychiatric history: anxiety, depression, prior suicide attempt, previous psychiatric hospitalization - Past Surgical History Surgical History: angioplasty/stent, appendectomy, cholecystectomy, knee replacement, other - Social History Smoking Status: Current every day smoker Smokeless Tobacco Status: No Alcohol use: rarely Drug use: none - Family History Father Living Status: Mother Living Status: Hx Family Cardiac Disorders: No Hx Family Respiratory Disorders: Yes (COPD) Hx Family Cancer: No Hx Family GI Disorders: No Hx Family Endocrine Disorder: No Hx Family Neuromuscular Disorders: No Hx Family Neurologic Disorders: No Hx Family HEENT Disorders: No Hx Family Autoimmune Disorders: No Medications and Allergies Budesonide/Formoterol 160/4.5 [Symbicort 160/4.5] 2 puff IH BIDR 12/30/16 [ History] Insulin ASPART [NovoLOG] 2 - 10 unit SQ TIDWM PRN 12/30/16 [History] Insulin Glargine,Hum.rec.anlog [Lantus Solostar] 36 unit SQ HS 12/30/16 [History ] Levalbuterol Tartrate [Xopenex Hfa] 1 puff IH BID 12/30/16 [History] Nitroglycerin [Nitrostat] 0.4 mg SL Q5M PRN 12/30/16 [History] Ranitidine HCl [Acid Manager Reporting] 150 mg PO BID 12/30/16 [History] Tiotropium [Spiriva] 18 mcg IH DAILY 12/30/16 [History] Calcium Polycarbophil [Fibercon] 625 mg PO DAILY 03/15/17 [History] Oxygen 2 l NS HS 03/15/17 [History] Diphenoxylate/Atropine [Lomotil 2.5 mg/0.025 mg] 1 tab PO QID PRN 06/10/17 [ History] LORazepam [Ativan] 0.5 mg PO HS #30 tablet 06/13/17 [Rx] FLUoxetine HCl [Prozac] 40 mg PO DAILY #60 06/20/17 [Rx] hydrOXYzine pamoate [HydrOXYzine Pamoate] 50 mg PO TID #90 06/20/17 [Rx] Atorvastatin [Lipitor] 40 mg PO HS 07/03/17 [History] HYDROcodone/Acet 5/325 mg [[place] 5-325 mg] 1 tab PO Q8H PRN 07/20/17 [History] Isosorbide MONOnitrate (24 HR) [Imdur] 60 mg PO DAILY 07/20/17 [History] Quetiapine Fumarate [Seroquel] 300 mg PO HS 07/20/17 [History] Warfarin [Coumadin] 3 mg PO SUMOWETHFR 07/20/17 [History] Aspirin 81 mg PO DAILY #30 tab.chew 07/22/17 [Rx] Metoprolol [Lopressor] 12.5 mg PO BID #60 tablet 07/22/17 [Rx] Warfarin [Coumadin] 4.5 mg PO TUSA 08/15/17 [History] Ipratropium/Albuterol Neb [Duoneb] 3 ml IH [id number] inhsol 08/19/17 [Rx] Nicotine Patch [Nicoderm] 14 mg TD DAILY patch.td24 08/19/17 [Rx] Diltiazem HCl [Diltiazem ER] 120 mg PO DAILY 08/29/17 [History] Gabapentin [Neurontin] 400 mg PO TID 08/29/17 [History] Meclizine [Antivert] 12.5 mg PO BID 08/29/17 [History] 3 Allergy/AdvReac Type Severity Reaction Status Date / Time baclofen Allergy Itching Verified 08/03/17 23:34 ciprofloxacin [From Cipro] Allergy Hives Verified 08/03/17 23:34 latex Allergy Rash Verified 08/03/17 23:34 Penicillins Allergy Hives Verified 08/03/17 23:34 prednisone Allergy Itching Verified 08/03/17 23:34 sulfamethoxazole Allergy Hives Verified 08/03/17 23:34 [From Bactrim] trimethoprim [From Bactrim] Allergy Hives Verified 08/03/17 23:34 cefdinir AdvReac Vomiting Verified 08/03/17 23:34 Oxycodone AdvReac Hallucinati Verified 08/03/17 23:34 ng All Systems: A 10-system review of systems was performed and is negative for pertinent findings except as documented above in the HPI. Physical Examination - Vital Signs Vital Signs: Initial Vital Signs Temp Pulse Resp BP Pulse Ox 99.8 F H 81 18 112/70 97 08/29/17 16:44 08/29/17 16:44 08/29/17 16:44 08/29/17 16:44 08/29/17 16:44 - Constitutional General appearance: comfortable - Neurologic Sensorimotor examination: intact Detailed motor examination: grossly full strength in all extremities Motor examination - left side: 4/5: deltoids, biceps, triceps, wrist flexion, wrist extension, hip flexors, ward aide, quadriceps, tibialis Anterior, toe extension (EHL), plantarflexion Detailed sensory examination: intact Reflex and gait examination: intact Reflexes: Biceps: 1+, Triceps: 1+, Brachioradialis: 1+, Patella: 1+, Achilles: 1 + Mental Status Examination: awake, alert, oriented to person, oriented to place, oriented to time, follows commands appropriately, answers questions appropriately, no agnosia, no aphasia, no aproxia Cranial nerve examination: PERRL, EOMI, visual you intact, corneal reflexes brisk symmetrically, sensory to face intact, mastication intact, no facial asymmetry is present, no dysarthria, hearing is intact symmetrically, soft palate elevates bilaterally upon phonation, gag reflex intact, flexes SCM and trapezius muscles symmetrically with full power, tongue protrudes midline, no atrophy or facial fasiculations present Results - Laboratory Findings CBC and BMP: 08/30/17 04:46 08/30/17 04:46 Abnormal lab findings: Abnormal lab results MPV 9.0 fL (9.4-12.4) L 08/30/17 04:46 PT 34.1 Seconds (9.4-12.1) H 08/30/17 04:46 APTT 44.0 Seconds (26.0-36.0) H 08/29/17 16:59 Glucose 117 mg/dL (70-99) H 08/30/17 04:46 POC Glucose 128 (58-89) H 08/29/17 22:45 Albumin 3.0 g/dL (3.5-5.0) L 08/30/17 04:46 Albumin/Globulin Ratio 0.9 (1.1-2.2) L 08/30/17 04:46 Triglycerides 195 mg/dL (< 150) H 08/30/17 04:46 Cholesterol 209 mg/dL (< 200) H 08/30/17 04:46 LDL Cholesterol, Calc 120 mg/dL (0-99) H 08/30/17 04:46 VLDL Cholesterol, Calc 39 mg/dL (< 31) H 08/30/17 04:46 Ur Leukocyte Esterase Trace (Negative) H 08/29/17 18:10 Urine Microscopic WBC 5-15 per hpf (0-3) H 08/29/17 18:10 Ur Squamous Epith Cells Many per lpf (None-Few) H 08/29/17 18:10 Ur Culture Indicated? YES (NO) A 08/29/17 18:10 - Diagnostic Findings Additional findings: CT head negative for any acute bleed or stroke Consult Discharge Plan - Plan Referrals: Maurisio Ward MD [Primary Care Provider] -
[2017-08-30] MEDS ORDERED: Warfarin perPT PO PRN (18:00)
[2017-08-30] MEDS ORDERED: *HR* Warfarin 2.5 MG TABLET PO ONE (18:00)
--- NOTE | 2017-08-30 18:44 | Internal Med Progress Note ---
Date of Encounter: 08/30/17 Time of Encounter: 11:00 - Assessment and plan (1) CVA (cerebral vascular accident) Current Visit: Yes Status: Chronic Assessment and plan: -Patient with left lower extremity motor deficits. -Neurology consulted and appreciate recommendations. Qualifiers: CVA mechanism: unspecified Qualified Code(s): I63.9 - Cerebral infarction, unspecified (2) Afib Current Visit: Yes Status: Chronic Assessment and plan: -Rate controlled; continue anticoagulation with OAC Qualifiers: Atrial fibrillation type: unspecified Qualified Code(s): I48.91 - Unspecified atrial fibrillation (3) CAD (coronary artery disease) Current Visit: Yes Status: Chronic Assessment and plan: -Stable; continue home medications. Qualifiers: Coronary Disease-Associated Artery/Lesion type: [place] artery [place] vs. transplanted heart: [place] heart Associated angina: with stable angina Qualified Code(s): I25.118 - Atherosclerotic heart disease of [place] coronary artery with other forms of angina pectoris (4) HTN (hypertension) Current Visit: Yes Status: Acute Assessment and plan: -Controlled; continue home medications. Qualifiers: Hypertension type: essential hypertension Qualified Code(s): I10 - Essential (primary) hypertension (5) HLD (hyperlipidemia) Current Visit: Yes Status: Acute Assessment and plan: -Stable; continue home medications. Qualifiers: Hyperlipidemia type: unspecified Qualified Code(s): E78.5 - Hyperlipidemia , unspecified (6) Diabetes mellitus type 2 in obese Current Visit: Yes Status: Chronic Assessment and plan: -Controlled; continue home medications. (7) COPD (chronic obstructive pulmonary disease) Current Visit: Yes Status: Chronic Assessment and plan: -Stable; continue home medications. Qualifiers: Chronic bronchitis type: unspecified Qualified Code(s): J42 - Unspecified chronic bronchitis - Subjective Interval history: No acute events overnight. - Constitutional Vitals: Temp Pulse Resp BP Pulse Ox 98 F 80 18 134/70 96 08/30/17 16:41 08/30/17 17:09 08/30/17 17:09 08/30/17 17:09 08/30/17 17:09 General appearance: Present: cooperative, A&O X 3, no acute distress, answers questions appropriately - Respiratory Respiratory exam: Present: CTAB. Absent: accessory muscle use, rales, rhonchi, wheezes - Cardiovascular Cardiovascular exam: Present: RRR, +S1, +S2. Absent: diastolic murmur, gallop, rubs, systolic murmur - Expanded Neurological Exam Neuro motor strength exam: LLE: 3 Internal Medicine: Result - Labs CBC & Chem 7: 08/30/17 04:46 08/30/17 04:46 Labs: Short CBC 08/30/17 Range/Units 04:46 WBC 9.0 (4.3-11.1) K/mcL Hgb 12.6 (11.5-15.4) g/dL Hct 39.0 (35.3-44.9) % Plt Count 179 (140-400) K/mcL Neutrophils # 5.9 (1.6-8.9) K/mcL BMP 08/30/17 04:46 Sodium 140 Potassium 4.4 Chloride 103 Carbon Dioxide 28 BUN 12 Creatinine 0.72 Glucose 117 H Calcium 9.1 Cardiac Enzymes 08/29/17 08/30/17 Range/Units 23:02 04:46 Troponin I 0.00 0.00 (0-0.03) ng/mL Liver Function 08/30/17 Range/Units 04:46 Total Bilirubin 0.4 (0.2-1.2) mg/dL AST 18 (5-34) Units/L ALT 36 (0-55) Units/L Alkaline Phosphatase 119 (38-126) Units/L Albumin 3.0 L (3.5-5.0) g/dL - ABG Interpretation ABG results: PT/INR, D-dimer PT 34.1 Seconds (9.4-12.1) H 08/30/17 04:46 - VTE Reasons for not Prescribing Prophylaxis: Not indicated-Anticoagulated or INR therapeutic Consult Discharge Plan - Plan Referrals: Maurisio Ward MD [Primary Care Provider] -
[2017-08-30] MEDS ORDERED: *HR* LORazepam 0.5 MG TABLET PO PRN (19:14)
[2017-08-30] MEDS ORDERED: *HR* LORazepam 0.5 MG TABLET PO SCH (21:00)
[2017-08-30] MEDS: Budesonide/Formoterol 160/4.5 MDI IH SCH (21:09)
[2017-08-30] MEDS ORDERED: Nitroglycerin 0.4 MG TAB.SUBL SL ONE (21:30)
[2017-08-30] MEDS ORDERED: Ondansetron 4 MG/2 ML VIAL IVP PRN (22:31)
[2017-08-30] MEDS ORDERED: cefTRIAXone 1,000 MG in Water for inj. (sterile) 10 ML IVP SCH (23:00)
[2017-08-31] MEDS: Ipratropium/Albuterol Neb 3 ML IH SCH ×4 (04:38→15:46)
[2017-08-31 05:29] LABS: INR 2.6; Prothrombin Time 28.8 Seconds (9.4-12.1)
[2017-08-31] MEDS: Budesonide/Formoterol 160/4.5 MDI IH SCH (08:02)
[2017-08-31] MEDS: Isosorbide MONOnitrate (24 HR) 60 MG TAB.ER.24H PO SCH (08:43)
[2017-08-31] MEDS: hydrOXYzine pamoate 25 MG CAPSULE PO SCH ×2 (08:43→15:21)
[2017-08-31] MEDS: Nitrofurantoin (BID) 100 MG CAPSULE PO SCH ×2 (08:43→15:21)
[2017-08-31] MEDS: Gabapentin 400 MG CAPSULE PO SCH ×2 (08:45→15:21)
[2017-08-31] MEDS: Aspirin 81 MG TAB.CHEW PO SCH (08:45)
[2017-08-31] MEDS: FLUoxetine 20 MG CAPSULE PO SCH (08:45)
[2017-08-31] MEDS: Famotidine 20 MG TABLET PO SCH ×2 (08:46→15:21)
[2017-08-31] MEDS: Diltiazem CD (24hr) 120 MG CAPSULE PO SCH (08:46)
[2017-08-31] MEDS: Insulin LISPRO 300 UNITS/3 ML VIAL SQ SCH ×2 (08:46→11:38)
[2017-08-31] MEDS: Nicotine 14 MG PATCH.TD24 TD SCH (08:52)
--- NOTE | 2017-08-31 10:52 | Neurology Progress Note ---
Date of Encounter: 08/31/17 Time of Encounter: 07:40 Assessment and Plan (1) TIA (transient ischemic attack) Current Visit: Yes Status: Suspected At this time it is not daily and that indeed she has a true TIA or not on further questioning it seems like she did have a residual weakness on the left side from her previous stroke she also has underlying neuropathy. Her exam seems to fluctuate like today's her strength is 4/4 on the left side is some fluctuating giveaway weakness. Regardless I suggested that she should continue on antiplatelet therapy No evidence of any carotid stenosis or any intracranial stenosis. Continue to treat other underlying condition particularly the chest pain that she has been complaining off and on. No further neurological workup is indicated at this time Qualifiers: Transient cerebral ischemia type: unspecified Qualified Code(s): G45.9 - Transient cerebral ischemic attack, unspecified (2) History of CVA (cerebrovascular accident) Current Visit: Yes Status: Acute Patient has a previous stroke several months ago with mild residual weakness of the left side received to be slightly worse as per history but on my examination he seems to be stable though there is some giveaway weakness and some fluctuation in her neurological examination She would benefit from short-term rehabilitation for gait and balance and this left-sided weakness (3) Brain aneurysm Current Visit: Yes Status: Acute She was also found to have a 2 mm left MCA aneurysm which I suspect is a incidental finding there is no evidence of any bleed or any other associated abnormality at this time I do not think that she would require any intervention especially due to the size as most of the time these are incidental findings and required audiological follow-up. She did have previous imaging studies at [facility] and she was admitted there for previous stroke then she has received the TPA. She could have a follow-up appointment as an outpatient and would probably benefit from repeat imaging studies in the next 6 months to a year to document the stability Subjective Interval history: Patient seen is in the follow-up for her slurred speech and left-sided weakness. She was complaining of some chest pain last side but no worsening of her left- sided weakness she did mention that she has residual weakness from her previous stroke on the left side she has multiple other admission with a similar symptoms and complain. CT angiogram of the neck was negative for any atherosclerotic disease at the same time no evidence of any stenosis. CTA of the head shows an evidence of 2 mm left MCA aneurysm likely incidental finding no evidence of any bleeding no evidence of any other atherosclerotic disease Objective - Constitutional Vitals: Temp Pulse Resp BP Pulse Ox 98.2 F 82 18 119/68 98 08/31/17 06:55 08/31/17 06:55 08/31/17 08:02 08/31/17 06:55 08/31/17 08:02 - Neurological Exam Sensorimotor examination: Present: intact Motor Examination: Present: grossly full strength in all extremities Motor examination - left side: 4/5: deltoids, biceps, triceps, wrist flexion, wrist extension, hip flexors, vulcanizer operator, quadriceps, tibialis Anterior, toe extension (EHL), plantarflexion Sensation intact: Present: intact Reflex and gait examination: intact Mental Status Examination: Present: awake, alert, oriented to person, oriented to place, oriented to time, follows commands appropriately, answers questions appropriately, no agnosia, no aphasia, no aproxia Cranial nerve examination: Present: PERRL, EOMI, visual you intact, corneal reflexes brisk symmetrically, sensory to face intact, mastication intact, no facial asymmetry is present, no dysarthria, hearing is intact symmetrically, soft palate elevates bilaterally upon phonation, gag reflex intact, flexes SCM and trapezius muscles symmetrically with full power, tongue protrudes midline, no atrophy or facial fasiculations present - VTE Reasons for not Prescribing Prophylaxis: Not indicated-Anticoagulated or INR therapeutic Documentation of Mechanical Device: Intermittent pneumatic compression device Results - Laboratory Findings CBC and BMP: 08/30/17 04:46 08/30/17 04:46 Abnormal lab findings: Abnormal lab results MPV 9.0 fL (9.4-12.4) L 08/30/17 04:46 PT 28.8 Seconds (9.4-12.1) H 08/31/17 04:46 APTT 44.0 Seconds (26.0-36.0) H 08/29/17 16:59 Glucose 117 mg/dL (70-99) H 08/30/17 04:46 POC Glucose 147 (58-89) H 08/30/17 16:44 Albumin 3.0 g/dL (3.5-5.0) L 08/30/17 04:46 Albumin/Globulin Ratio 0.9 (1.1-2.2) L 08/30/17 04:46 Triglycerides 195 mg/dL (< 150) H 08/30/17 04:46 Cholesterol 209 mg/dL (< 200) H 08/30/17 04:46 LDL Cholesterol, Calc 120 mg/dL (0-99) H 08/30/17 04:46 VLDL Cholesterol, Calc 39 mg/dL (< 31) H 08/30/17 04:46 Ur Leukocyte Esterase Trace (Negative) H 08/29/17 18:10 Urine Microscopic WBC 5-15 per hpf (0-3) H 08/29/17 18:10 Ur Squamous Epith Cells Many per lpf (None-Few) H 08/29/17 18:10 Ur Culture Indicated? YES (NO) A 08/29/17 18:10 Consult Discharge Plan - Plan Referrals: Maurisio Ward MD [Primary Care Provider] -
[2017-08-31 15:57] VITALS: BP 108/56
--- NOTE | 2017-08-31 16:23 | Discharge Summary ---
Date of Encounter: 08/31/17 Time of Encounter: 11:00 - Discharge Diagnosis (1) CVA (cerebral vascular accident) Priority: Primary Status: Chronic Qualifiers: CVA mechanism: unspecified Qualified Code(s): I63.9 - Cerebral infarction, unspecified (2) Afib Priority: Secondary Status: Chronic Qualifiers: Atrial fibrillation type: unspecified Qualified Code(s): I48.91 - Unspecified atrial fibrillation (3) CAD (coronary artery disease) Priority: Secondary Status: Chronic Qualifiers: Coronary Disease-Associated Artery/Lesion type: [place] artery [place] vs. transplanted heart: [place] heart Associated angina: with stable angina Qualified Code(s): I25.118 - Atherosclerotic heart disease of [place] coronary artery with other forms of angina pectoris (4) HTN (hypertension) Priority: Secondary Status: Acute Qualifiers: Hypertension type: essential hypertension Qualified Code(s): I10 - Essential (primary) hypertension (5) HLD (hyperlipidemia) Priority: Secondary Status: Acute Qualifiers: Hyperlipidemia type: unspecified Qualified Code(s): E78.5 - Hyperlipidemia , unspecified (6) Diabetes mellitus type 2 in obese Priority: Secondary Status: Chronic (7) COPD (chronic obstructive pulmonary disease) Priority: Secondary Status: Chronic Qualifiers: Chronic bronchitis type: unspecified Qualified Code(s): J42 - Unspecified chronic bronchitis - Discharge Medications Home Medications: Budesonide/Formoterol 160/4.5 [Symbicort 160/4.5] 2 puff IH BIDR 12/30/16 [ History] Insulin ASPART [NovoLOG] 2 - 10 unit SQ TIDWM PRN 12/30/16 [History] Insulin Glargine,Hum.rec.anlog [Lantus Solostar] 36 unit SQ HS 12/30/16 [History ] Levalbuterol Tartrate [Xopenex Hfa] 1 puff IH BID 12/30/16 [History] Nitroglycerin [Nitrostat] 0.4 mg SL Q5M PRN 12/30/16 [History] Ranitidine HCl [Acid Mining Support Worker] 150 mg PO BID 12/30/16 [History] Tiotropium [Spiriva] 18 mcg IH DAILY 12/30/16 [History] Calcium Polycarbophil [Fibercon] 625 mg PO DAILY 03/15/17 [History] Oxygen 2 l NS HS 03/15/17 [History] Diphenoxylate/Atropine [Lomotil 2.5 mg/0.025 mg] 1 tab PO QID PRN 06/10/17 [ History] LORazepam [Ativan] 0.5 mg PO HS #30 tablet 06/13/17 [Rx] FLUoxetine HCl [Prozac] 40 mg PO DAILY #60 06/20/17 [Rx] hydrOXYzine pamoate [HydrOXYzine Pamoate] 50 mg PO TID #90 06/20/17 [Rx] Atorvastatin [Lipitor] 40 mg PO HS 07/03/17 [History] HYDROcodone/Acet 5/325 mg [[place] 5-325 mg] 1 tab PO Q8H PRN 07/20/17 [History] Isosorbide MONOnitrate (24 HR) [Imdur] 60 mg PO DAILY 07/20/17 [History] Quetiapine Fumarate [Seroquel] 300 mg PO HS 07/20/17 [History] Warfarin [Coumadin] 3 mg PO SUMOWETHFR 07/20/17 [History] Aspirin 81 mg PO DAILY #30 tab.chew 07/22/17 [Rx] Metoprolol [Lopressor] 12.5 mg PO BID #60 tablet 07/22/17 [Rx] Warfarin [Coumadin] 4.5 mg PO TUSA 08/15/17 [History] Ipratropium/Albuterol Neb [Duoneb] 3 ml IH [id number] inhsol 08/19/17 [Rx] Nicotine Patch [Nicoderm] 14 mg TD DAILY patch.td24 08/19/17 [Rx] Diltiazem HCl [Diltiazem ER] 120 mg PO DAILY 08/29/17 [History] Gabapentin [Neurontin] 400 mg PO TID 08/29/17 [History] Meclizine [Antivert] 12.5 mg PO BID 08/29/17 [History] Allergies/Adverse Reactions: 3 Allergy/AdvReac Type Severity Reaction Status Date / Time baclofen Allergy Itching Verified 08/03/17 23:34 ciprofloxacin [From Cipro] Allergy Hives Verified 08/03/17 23:34 latex Allergy Rash Verified 08/03/17 23:34 Penicillins Allergy Hives Verified 08/03/17 23:34 prednisone Allergy Itching Verified 08/03/17 23:34 sulfamethoxazole Allergy Hives Verified 08/03/17 23:34 [From Bactrim] trimethoprim [From Bactrim] Allergy Hives Verified 08/03/17 23:34 cefdinir AdvReac Vomiting Verified 08/03/17 23:34 Oxycodone AdvReac Hallucinati Verified 08/03/17 23:34 ng Procedures/tests Complete & Pending: Procedures Performed prior 72 hours Category Date Time Status ECG 12 lead ECG [ECG] Routine Y 08/29/17 17:14 Completed ECG 12 lead ECG [ECG] Stat Y 08/30/17 21:06 Completed EV carotid duplex imaging BI Routine Y 08/31/17 08:06 Completed EV limited echo w saline Routine Y 08/29/17 22:25 Completed Date of admission: 08/29/17 20:47 Primary care physician: Maurisio Ward MD Consults: 08/29/17 22:30 Consult to Occupational Therapy [CONS] Routine Comment: Evaluate, develop and implement POC Reason for Consult: TIA VS CVA Consult to Physical Therapy [CONS] Routine Comment: Evaluate, develop and implement POC Reason for Consult: TIA VS CVA Consult to Physician [CONS] Routine Consulting Provider: Darrell Galvez I Reason for Consult: TIA VS CVA; 2MM ANEURYSM NOTED IN MCA BIFURCATION Call Completed: No Consult to Speech Therapy [CONS] Routine Comment: Evaluate, develop and implement POC Reason for Consult: TIA VS CVA Call Completed: No 08/30/17 08:50 Consult to Neurology [CONS] Routine Consulting Provider: Neurology [facility] Reason for Consult: TIA vs CVA r/o Call Completed: No 08/30/17 16:25 Consult to Paediatric Surgeon [CONS] Routine Reason for SW Consult: Problems affording insulin. - Patient Status Disposition: Home, Self-Care Condition: Fair - Discharge Instructions Instructions: Heart Failure (DC), Atrial Fibrillation (DC), Urinary Tract Infection in Women (DC), Diabetes Mellitus Type 2 in Adults (DC), Chronic Obstructive Pulmonary Disease (DC), Ischemic Stroke (DC), Ischemic Stroke (GEN) , Chronic Hypertension (DC), Cigarette Smoking and Your Health, [facility] Sales (GEN) Follow Up With: Maurisio Ward MD [Primary Care Provider] - (Appt requested. They will call you with appt date & time.) Darrell Galvez MD [Partnered Physician] - 09/14/17 9:45 am (followup for Brain Aneurysm seen on CT Head) Hospital course: Patient is a 52-year-old female with past medical history significant for atrial fibrillation on Coumadin COPD, CAD ([place]), DVA, TIA, DM, GERD, HLD, HTN and PAD who presented to the ER on 08/29/17 with slurred speech and left-sided altered sensation. She reported of waking up the morning of admission with altered sensation on her left side and slurred speech. Patient has a history of CVA 2 months ago and received TPA. In the ER, CT of the head/neck showed no acute intracranial abnormality but a 2 mm aneurysm at left MCA bifurcation is identified. Patient was admitted for further workup and observation. Patient symptoms resolved during hospital stay. Neurology was consulted and suspected patient had a true TIA or residual weakness on the left side from her previous stroke she also has underlying neuropathy. Carotid Dopplers with no abnormalities noted. Recommendations to continue on antiplatelet therapy. She was also found to have a 2 mm left MCA aneurysm which is an incidental finding; there is no evidence of any bleed or any other associated abnormality at this time. Recommendations for no intervention especially due to the size as most of the time these are incidental findings and required audiological follow-up. Patient will need a follow-up appointment as an outpatient and would probably benefit from repeat imaging studies in the next 6 months to a year to document the stability. In addition, patient also complained about chest discomfort at her admission resolved and cardiac biomarkers were negative. No further workup. Patient will follow up with primary care provider in neurology as stated above. - Time Spent with Patient Total time spent providing and/or coordinating discharge services: Less than 30 minutes - Constitutional Vitals: Temp Pulse Resp BP Pulse Ox 98.2 F 88 15 108/56 99 08/31/17 15:54 08/31/17 15:54 08/31/17 15:54 08/31/17 15:54 08/31/17 15:54 General appearance: Present: cooperative, A&O X 3, no acute distress, answers questions appropriately - Cardiovascular Cardiovascular exam: Present: RRR, +S1, +S2. Absent: diastolic murmur, gallop, rubs, systolic murmur - VTE Reasons for not Prescribing Prophylaxis: Not indicated-Anticoagulated or INR therapeutic Documentation of Mechanical Device: Intermittent pneumatic compression device
[2017-08-31] MEDS ORDERED: *HR* Warfarin 3 MG TABLET PO ONE (18:00)
--- NOTE | 2017-08-31 20:11 | Electrocardiograph Report ---
[place] [id number] Test Date: 2017-08-30 Pat Name: Aliza Strong Department: 111 Room: 2N3 Gender: F [employer] Wood: RAW : 1965 Requested By: Tip Bueno Order Number: [id number] Reading MD: Jonny Betancur MD Measurements Intervals [place] Rate: 71 P: 58 AR: 186 QRS: 11 QRSD: 146 T: 67 QT: 410 QTc: 433 Interpretive Statements SINUS RHYTHM LEFT BUNDLE BRANCH BLOCK Electronically Signed On 08-31-2017 20:09:36 EST by Jonny Betancur MD
[2017-09-01] MEDS ORDERED: Aspirin 325 MG TABLET PO SCH (09:00)
== END 2017-08-31 18:13 | disposition home or self-care (01) ==
LOC: 2NENU 16:42 → EMEROO 16:42 → SUATTDRO 20:47 → 2NENU 21:08
PROVIDERS: ADMIT Internal Medicine; ATTEND Hospitalist

== ENCOUNTER 2017-09-14 12:09 | Observation (INO) ==
[2017-09-14] MEDS ORDERED: Ondansetron 4 MG/2 ML VIAL IVP ONE (12:32)
[2017-09-14] MEDS ORDERED: 0.9 % Sodium Chloride 1,000 ML IVC ONE (12:32)
[2017-09-14] MEDS ORDERED: Metoclopramide 10 MG/2 ML VIAL IVP ONE (12:32)
[2017-09-14] MEDS ORDERED: methylPREDNISolone 125 MG/2 ML VIAL IVP ONE (12:34)
--- NOTE | 2017-09-14 12:39 | Emergency Department Note ---
Disposition Clinical Impression: Slurring of speech Disposition: Admitted As Inpatient Time of Disposition: 14:41 Headache HPI - General Chief Complaint: ED Headache Stated Complaint: Headache Time Seen by Provider: 09/14/17 12:18 Limitations: no limitations Nursing Notes Reviewed: Yes Vital Signs Reviewed: Yes - History of Present Illness HPI Narrative: Mrs. Strong, 52-year-old female, presents from the care clinic for evaluation of headache. Onset this morning at 9 AM and resistant to her home Tylenol and Imitrex. Patient is a history of migraines and describes this headache as similar to her prior migraines-generalized sharp stabbing with underlying throbbing. She has associated vertigo worse when standing, general blurry vision. No numbness, tingling, usual weakness, slurring of speech, difficulty swallowing , neck pains. PMH: Hypertension, hyperlipidemia, atrial fibrillation on warfarin, known history of 2 mm MCA aneurysm, history CVA on aspirin Pain Scale: 10 - Related Data Home Medications Medication Instructions Recorded Confirmed Budesonide/Formoterol 160/4.5 2 puff IH BIDR 12/30/16 09/12/17 [Symbicort 160/4.5] Insulin ASPART [NovoLOG] 2 - 10 unit SQ TIDWM PRN 12/30/16 09/12/17 Insulin Glargine,Hum.rec.anlog 36 unit SQ HS 12/30/16 09/12/17 [Lantus Solostar] Levalbuterol Tartrate [Xopenex Hfa] 1 puff IH BID 12/30/16 09/12/17 Nitroglycerin [Nitrostat] 0.4 mg SL Q5M PRN 12/30/16 09/12/17 Ranitidine HCl [Acid Notching Press Operator] 150 mg PO BID 12/30/16 09/12/17 Tiotropium [Spiriva] 18 mcg IH DAILY 12/30/16 09/12/17 Calcium Polycarbophil [Fibercon] 625 mg PO DAILY 03/15/17 09/12/17 Oxygen 2 l NS HS 03/15/17 09/12/17 Atorvastatin [Lipitor] 40 mg PO HS 07/03/17 09/12/17 HYDROcodone/Acet 5/325 mg [[place] 1 tab PO Q8H PRN 07/20/17 09/12/17 5-325 mg] Isosorbide MONOnitrate (24 HR) 60 mg PO DAILY 07/20/17 09/12/17 [Imdur] Quetiapine Fumarate [Seroquel] 300 mg PO HS 07/20/17 09/12/17 Warfarin [Coumadin] 3 mg PO SUMOWETHFR 07/20/17 09/12/17 Warfarin [Coumadin] 4.5 mg PO TUSA 08/15/17 09/12/17 Diltiazem HCl [Diltiazem ER] 120 mg PO DAILY 08/29/17 09/12/17 Gabapentin [Neurontin] 400 mg PO TID 08/29/17 09/12/17 Meclizine [Antivert] 12.5 mg PO BID 08/29/17 09/12/17 Buspirone HCl [Buspar] 10 mg PO BID 09/14/17 09/14/17 Diclofenac Sodium [Voltaren] 75 mg PO BID 09/14/17 09/14/17 FLUoxetine HCl [Prozac] 40 mg PO BID 09/14/17 09/14/17 Previous Rx's Medication Instructions Recorded LORazepam [Ativan] 0.5 mg PO HS #30 tablet 06/13/17 hydrOXYzine pamoate [HydrOXYzine 50 mg PO TID #90 06/20/17 Pamoate] Aspirin 81 mg PO DAILY #30 tab.chew 07/22/17 Metoprolol [Lopressor] 12.5 mg PO BID #60 tablet 07/22/17 Ipratropium/Albuterol Neb [Duoneb] 3 ml IH [id number] inhsol 08/19/17 Allergies Allergy/AdvReac Type Severity Reaction Status Date / Time baclofen Allergy Itching Verified 09/14/17 12:13 ciprofloxacin [From Cipro] Allergy Hives Verified 09/14/17 12:13 latex Allergy Rash Verified 09/14/17 12:13 Penicillins Allergy Hives Verified 09/14/17 12:13 prednisone Allergy Itching Verified 09/14/17 12:13 sulfamethoxazole Allergy Hives Verified 09/14/17 12:13 [From Bactrim] trimethoprim [From Bactrim] Allergy Hives Verified 09/14/17 12:13 cefdinir AdvReac Vomiting Verified 09/14/17 12:13 Oxycodone AdvReac Hallucinati Verified 09/14/17 12:13 ng All systems ED: reviewed and negative except as stated. Review of Systems: As Per HPI Headache PMH - Past Medical History Medical history: Reports: arthritis, asthma, atrial fibrillation, COPD, coronary artery disease, CVA, diabetes, GERD, hyperlipidemia, hypertension, migraine, myocardial infarction, peripheral artery disease, TIA, other Female Surgical History: Reports: angioplasty/stent, appendectomy, cholecystectomy, knee replacement, other Psychiatric history: Reports: anxiety, depression, prior suicide attempt, previous psychiatric hospitalization [employer] history: Reports: bilateral 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 - Social History Smoking Status: Current every day smoker Alcohol use: Reports: none Drug use: Reports: none Physical Exam Vital Signs Reviewed General: Patient is alert, oriented, and in no acute distress. HEENT: No facial asymmetry. Head is normocephalic and atraumatic. PERRLA, EOMI. no bilateral retinal papilledema. Cardiovascular: Heart regular rate and rhythm without clicks, rubs, gallops, or murmurs. No JVD. PMI nondisplaced. Respiratory: Symmetric chest rise with good respiratory effort. Bilateral breath sounds are clear without wheezing, crackles, or rhonchi. Abdomen: Bowel sounds present normoactive x-4 quadrants. Abdomen is soft, nondistended, and nontender. No organomegaly noted. Musculoskeletal: Muscle strength 5/5 and symmetric bilaterally in upper and lower extremities. Neuro: Cranial nerves II through XII without deficit. Sensation light touch intact. GCS 15. Alert and oriented 4. Psych: Patient's affect is appropriate for situation. - General Limitations: no limitations General appearance: alert, in no apparent distress Course Course Narrative: 12:36 Alerted to bedside by nursing staff. I just left the room and was placing orders to investigate cerebral hemorrhage Patient has had abrupt onset slurring of speech which, to her, is similar to her prior CVA. This was not present on my exam less than 5 minutes previous. Will call code stroke at this time. Onset of symptoms: 12:35. Exam at this time: Vital Signs Reviewed General: Patient is alert, oriented, and in no acute distress. She is lying comfortably in bed but is slurring her speech. HEENT: No facial asymmetry. Head is normocephalic and atraumatic. PERRLA, EOMI. Nasal turbinates moist and pink. Posterior pharynx without exudates or cobblestoning. Trachea midline, no palpable thyroid nodules, no thyromegaly. Cardiovascular: Heart regular rate and rhythm without clicks, rubs, gallops, or murmurs. No JVD. PMI nondisplaced. Respiratory: Symmetric chest rise with good respiratory effort. Bilateral breath sounds are clear without wheezing, crackles, or rhonchi. Abdomen: Bowel sounds present normoactive x-4 quadrants. Abdomen is soft, nondistended, and nontender. No organomegaly noted. Musculoskeletal: Muscle strength 5/5 and symmetric bilaterally in upper and lower extremities. Neuro: Sensation light touch intact bilateral face, upper extremity, lower extremities. Patient has left mild pronator drifts. Otherwise no motor deficits including no facial motor deficits. No glenny-neglect. She does have dysarthria without aphasia. Psych: Patient's affect is appropriate for situation. Discussed the patient with [facility] telemetry neurology. During this evaluation, patient is now stuttering. Recommendation by [facility] telemetry neurologist is no TPA at this time. Patient was given the choice for transfer to [facility] versus to stay in this facility. She chooses to stay in this facility. I discussed the patient with Dr. Tabor, on-call all G. Discussed the patient and her clinical condition with him. Discussed inclusion of [facility] telemetry neurology. Because patient has had a recent workup, he gave the option for discharge home with follow-up to his clinic versus admission. Patient prefers admission. He is agreeable to this; admission to medicine with neurology following. Assessment patient with [facility] hospitalist, Dr. Blanco, who agreed to accept the patient for MRI continue evaluation. Vital Signs Temperature 98.2 F 09/14/17 12:11 Pulse Rate 78 09/14/17 12:11 Respiratory Rate 16 09/14/17 12:11 Blood Pressure 127/73 09/14/17 12:11 O2 Sat by Pulse Oximetry 96 09/14/17 12:11 Temperature 98.2 F 09/14/17 12:11 Pulse Rate 78 09/14/17 13:28 Respiratory Rate 16 09/14/17 13:28 Blood Pressure 121/70 09/14/17 13:28 O2 Sat by Pulse Oximetry 95 09/14/17 13:28 Oxygen Delivery Oxygen Delivery Room Air Headache - Medical Records Medical records reviewed: Yes I reviewed the patient's medical records. - Lab Data Lab results reviewed: Yes I reviewed the patient's lab results. Result diagrams: 09/14/17 12:53 09/14/17 12:53 Lab Results 09/14/17 09/14/17 09/14/17 Range/Units 12:45 12:53 12:53 WBC 10.7 (4.3-11.1) K/mcL RBC 4.43 (3.82-4.97) M/mcL Hgb 12.6 (11.5-15.4) g/dL Hct 39.0 (35.3-44.9) % MCV 88.0 (83.0-100.0) fL MCH 28.4 (28.0-33.3) pg MCHC 32.3 (31.6-35.5) g/dL RDW 13.9 (11.5-14.5) % Plt Count 237 (140-400) K/mcL MPV 9.0 L (9.4-12.4) fL Immature Gran % 2.3 (0-4) % Seg Neutrophils % 57.5 % Lymphocytes % 30.2 % Monocytes % 7.9 % Eosinophils % 1.4 % Basophils % 0.7 % Neutrophils # 6.1 (1.6-8.9) K/mcL Lymphocytes # 3.2 (0.6-4.6) K/mcL Monocytes # 0.9 (0.0-1.3) K/mcL Eosinophils # 0.2 (0.0-0.6) K/mcL Basophils # 0.1 (0.0-0.2) K/mcL PT (9.4-12.1) Seconds INR APTT (26.0-36.0) Seconds Sodium 141 (136-145) mEq/L Potassium 4.0 (3.5-4.5) mEq/L Chloride 106 (98-109) mEq/L Carbon Dioxide 22 (19-29) mEq/L BUN 13 (7-20) mg/dL Creatinine 0.66 (0.57-1.11) mg/dL Est GFR ( Amer) > 60 (> 60) Est GFR (Non-Af Amer) > 60 (> 60) BUN/Creatinine Ratio 20 (6-26) Glucose 88 (70-99) mg/dL POC Glucose 83 (58-89) Calculated Osmolality 292 (280-300) Calcium 9.4 (8.6-10.8) mg/dL Troponin I (0-0.03) ng/mL Urine Color (Yellow) Urine Clarity (Clear) Urine pH (5.0-8.0) pH Units Ur Specific [place] (1.010-1.025) Urine Protein (Neg-Trace) mg/dL Urine Glucose (UA) (Normal) mg/dL Urine Ketones (Negative) mg/dL Urine Blood (Negative) Urine Nitrite (Negative) Urine Bilirubin (Negative) Urine Urobilinogen (Normal) mg/dL Ur Leukocyte Esterase (Negative) Ur Culture Indicated? (NO) 09/14/17 09/14/17 09/14/17 Range/Units 12:53 12:53 13:00 WBC (4.3-11.1) K/mcL RBC (3.82-4.97) M/mcL Hgb (11.5-15.4) g/dL Hct (35.3-44.9) % MCV (83.0-100.0) fL MCH (28.0-33.3) pg MCHC (31.6-35.5) g/dL RDW (11.5-14.5) % Plt Count (140-400) K/mcL MPV (9.4-12.4) fL Immature Gran % (0-4) % Seg Neutrophils % % Lymphocytes % % Monocytes % % Eosinophils % % Basophils % % Neutrophils # (1.6-8.9) K/mcL Lymphocytes # (0.6-4.6) K/mcL Monocytes # (0.0-1.3) K/mcL Eosinophils # (0.0-0.6) K/mcL Basophils # (0.0-0.2) K/mcL PT 22.2 H (9.4-12.1) Seconds INR 2.0 APTT 35.4 (26.0-36.0) Seconds Sodium (136-145) mEq/L Potassium (3.5-4.5) mEq/L Chloride (98-109) mEq/L Carbon Dioxide (19-29) mEq/L BUN (7-20) mg/dL Creatinine (0.57-1.11) mg/dL Est GFR ( Amer) (> 60) Est GFR (Non-Af Amer) (> 60) BUN/Creatinine Ratio (6-26) Glucose (70-99) mg/dL POC Glucose (58-89) Calculated Osmolality (280-300) Calcium (8.6-10.8) mg/dL Troponin I 0.01 (0-0.03) ng/mL Urine Color Yellow (Yellow) Urine Clarity Clear (Clear) Urine pH 6.0 (5.0-8.0) pH Units Ur Specific [place] 1.023 (1.010-1.025) Urine Protein Negative (Neg-Trace) mg/dL Urine Glucose (UA) Normal (Normal) mg/dL Urine Ketones Negative (Negative) mg/dL Urine Blood Negative (Negative) Urine Nitrite Negative (Negative) Urine Bilirubin Negative (Negative) Urine Urobilinogen Normal (Normal) mg/dL Ur Leukocyte Esterase Negative (Negative) Ur Culture Indicated? NO (NO) - Radiology Data Radiology results reviewed: Yes I reviewed the patient's radiology results. Head CT 09/14/17 12:39 IMPRESSION: No acute intracranial abnormality. Findings were discussed with Dr. Berg at 1:04 pm on 09/14/2017. D/ / José Curran MD / José Curran MD Interpreting Provider: José Curran MD - EKG Data EKG attestation: Yes I reviewed and interpreted this EKG. EKG results narrative: EKG dated 14 September 2017 at 12:19 interpreted as sinus rhythm with a rate of 77. Intervals [place] 73, QRS 146 and prolonged, QT/QTc 442/474. Left bundle branch block which is consistent and present on comparative EKG and is appropriately discordant. Compared to previous EKG dated 08/29/17 also showing left bundle branch block of similar morphology; no acute ischemic changes or comparison. Attestation Statement - Attestation Attestation: I examined this patient and my medical decision-making was reviewed with the Resident Physician. I agree with the documented findings, disposition and treatment plan as described except to the extent set forth below. Patient presents to the emergency department finding of a headache. Patient states it started at 9 AM today. Typical migraine for her. Did not respond to her migraine medicine of Imitrex at home. Went to the urgent care and was sent here. Patient resists CTA performed in August that showed a 2 mm aneurysm. Patient is also on Coumadin. After arrival here patient started complaining of slurred speech and left-sided weakness. On evaluation she had an NIH of 2 with a left arm drift and a mild slurring of her speech. We did call a stroke alert. Head CT was negative. Workup has been unremarkable. Patient is anticoagulated on Coumadin. TPA was not recommended by telephone neurologist. She is admitted to medicine with a neuro consult. 40 minutes of Critical care exclusive of separately billed procedures. NIH Stroke Scale - Level of Consciousness LOC: Alert - LOC Questions LOC Questions: Answers both correctly - LOC Commands LOC Commands: Performs both correctly - Best Gaze Best Gaze: Normal - Visual Visual: No visual loss - Facial Palsy Facial Palsy: Normal - Motor Arms Motor Arm-Left: Drift, does NOT hit bed Motor Arm-Right: No drift for 10 seconds - Motor Legs Motor Leg-Left: No drift for 5 seconds Motor Leg-Right: No drift for 5 seconds - Limb Ataxia Limb Ataxia: Absent of affected limb too weak to perform exam - Sensory Sensory: Normal - Best Language Best Language: No aphasia - Dysarthria Dysarthria: Mild, slurs some words - Extinction and Inattention Extinction and Inattention: Normal - NIHSS Total Score NIHSS Total Score: 2
[2017-09-14 13:04] LABS: Basophils # 0.1 K/mcL (0.0-0.2); Basophils % 0.7 %; Eosinophils # 0.2 K/mcL (0.0-0.6); Eosinophils % 1.4 %; Hemoglobin 12.6 g/dL (11.5-15.4); Immature Granulocytes % 2.3 % (0-4); Lymphocytes # 3.2 K/mcL (0.6-4.6); Lymphocytes % 30.2 %; Mean Corpuscular HGB Conc 32.3 g/dL (31.6-35.5); Mean Corpuscular Hemoglobin 28.4 pg (28.0-33.3); Monocytes # 0.9 K/mcL (0.0-1.3); Monocytes % 7.9 %; Neutrophils # 6.1 K/mcL (1.6-8.9); Platelet Count 237 K/mcL (140-400); Red Blood Count 4.43 M/mcL (3.82-4.97); Red Cell Distribution Width 13.9 % (11.5-14.5); Segmented Neutrophils % 57.5 %
[2017-09-14 13:12] LABS: Bilirubin,Urine Negative (Negative); Blood,Urine Negative (Negative); Clarity,Urine Clear (Clear); Color,Urine Yellow (Yellow); Glucose,Urine (UA) Normal (Normal); Ketones,Urine Negative (Negative); Leukocyte Esterase,Urine Negative (Negative); Nitrite,Urine Negative (Negative); Protein,Urine Negative (Neg-Trace); Specific Gravity,Urine 1.023 (1.010-1.025); Urobilinogen,Urine Normal (Normal)
[2017-09-14 13:15] LABS: BUN/Creatinine Ratio 20 (6-26); Blood Urea Nitrogen 13 mg/dL (7-20); Calcium 9.4 mg/dL (8.6-10.8); Carbon Dioxide 22 mEq/L (19-29); Chloride 106 mEq/L (98-109); Glucose 88 mg/dL (70-99); Osmolality,Calculated 292 (280-300); Sodium 141 mEq/L (136-145); eGFR For African Americans > 60 (> 60); eGFR For Non-African Americans > 60 (> 60)
[2017-09-14 13:17] LABS: Prothrombin Time 22.2 Seconds (9.4-12.1)
[2017-09-14 13:20] LABS: Activated Partial Thrombo Time 35.4 Seconds (26.0-36.0)
--- NOTE | 2017-09-14 16:11 | Internal Med History&Physical ---
Date of Encounter: 09/14/17 Time of Encounter: 16:00 Assessment and Plan (1) CVA (cerebral vascular accident) Current visit: No Status: Chronic -On exam patient is noted to still have slurred speech with left-sided weakness. -CT of head shows no acute intracranial abnormalities. -Patient with bladder stimulator so unable to do MRI/MRA -Will consult speech for swallow eval -Will also consult neurology and appreciate recommendations. Qualifiers: CVA mechanism: unspecified Qualified Code(s): I63.9 - Cerebral infarction, unspecified (2) Diabetes mellitus type 2 in obese Current visit: No Status: Chronic -Continue home medications (3) CAD (coronary artery disease) Current visit: No Status: Chronic -Continue home medications Qualifiers: Coronary Disease-Associated Artery/Lesion type: [place] artery [place] vs. transplanted heart: [place] heart Associated angina: with stable angina Qualified Code(s): I25.118 - Atherosclerotic heart disease of [place] coronary artery with other forms of angina pectoris (4) HTN (hypertension) Current visit: No Status: Acute -Continue home medications Qualifiers: Hypertension type: essential hypertension Qualified Code(s): I10 - Essential (primary) hypertension (5) HLD (hyperlipidemia) Current visit: No Status: Acute -Continue home medications Qualifiers: Hyperlipidemia type: unspecified Qualified Code(s): E78.5 - Hyperlipidemia , unspecified (6) Smoker Current visit: No Status: Chronic -Discussed with patient about smoking cessation. -Nicotine replacement offered. (7) Bipolar 1 disorder Current visit: No Status: Acute -Continue home medications (8) Morbid obesity with BMI of 40.0-44.9, adult Current visit: No Status: Chronic -Lifestyle modifications. (9) DVT prophylaxis Current visit: No Status: Acute SCDs Internal Medicine - H&P: HPI Chief complaint: Headaches/slurred speech Admitted From: Home Plans for Post Hospital Care: Home History of present illness: Patient is a 52-year-old female with past medical history significant for prior CVA 3([id number]), 2 mm MCA ,coronary arterial disease, atrial fibrillation (on Coumadin) insulin-dependent diabetes, hypertension and hyperlipidemia who presents to the ER on 09/14/17 with headaches/slurred speech. Patient states that headaches are located in the left occipital region which radiates to the frontal lobe for approximately 1 week. Patient characterizes her headaches as sharp/throbbing with a severity of 10 out of 10 lasting for hours with associated symptoms of blurred vision and nausea. Patient reported however today her headaches were constant and spouse noticed she developed slurred speech. In the ER, on exam patient is noted to still have slurred speech with left- sided weakness. CT of head shows no acute intracranial abnormalities. Patient will be admitted to the medical surgical floor for CVA. Past Med Surg Social Fam HX - Past Medical History Medical history: arthritis, asthma, atrial fibrillation, COPD, coronary artery disease, CVA, diabetes, GERD, hyperlipidemia, hypertension, migraine, myocardial infarction, peripheral artery disease, TIA, other Psychiatric history: anxiety, depression, prior suicide attempt, previous psychiatric hospitalization - Past Surgical History Surgical History: angioplasty/stent, appendectomy, cholecystectomy, knee replacement, other - Social History Smoking Status: Current every day smoker Smokeless Tobacco Status: No Alcohol use: none Drug use: none - Family History Father Living Status: Mother Living Status: Hx Family Cardiac Disorders: No Hx Family Respiratory Disorders: Yes (COPD) Hx Family Cancer: No Hx Family GI Disorders: No Hx Family Endocrine Disorder: No Hx Family Neuromuscular Disorders: No Hx Family Neurologic Disorders: No Hx Family HEENT Disorders: No Hx Family Autoimmune Disorders: No Internal Medicine - H&P: Meds Budesonide/Formoterol 160/4.5 [Symbicort 160/4.5] 2 puff IH BIDR 12/30/16 [ History] Insulin ASPART [NovoLOG] 2 - 10 unit SQ TIDWM PRN 12/30/16 [History] Insulin Glargine,Hum.rec.anlog [Lantus Solostar] 36 unit SQ HS 12/30/16 [History ] Levalbuterol Tartrate [Xopenex Hfa] 1 puff IH BID 12/30/16 [History] Nitroglycerin [Nitrostat] 0.4 mg SL Q5M PRN 12/30/16 [History] Ranitidine HCl [Acid Mill Operator Helper] 150 mg PO BID 12/30/16 [History] Tiotropium [Spiriva] 18 mcg IH DAILY 12/30/16 [History] Calcium Polycarbophil [Fibercon] 625 mg PO DAILY 03/15/17 [History] Oxygen 2 l NS HS 03/15/17 [History] LORazepam [Ativan] 0.5 mg PO HS #30 tablet 06/13/17 [Rx] hydrOXYzine pamoate [HydrOXYzine Pamoate] 50 mg PO TID #90 06/20/17 [Rx] Atorvastatin [Lipitor] 40 mg PO HS 07/03/17 [History] HYDROcodone/Acet 5/325 mg [[place] 5-325 mg] 1 tab PO Q8H PRN 07/20/17 [History] Isosorbide MONOnitrate (24 HR) [Imdur] 60 mg PO DAILY 07/20/17 [History] Quetiapine Fumarate [Seroquel] 300 mg PO HS 07/20/17 [History] Warfarin [Coumadin] 3 mg PO MOWETHFRSA 07/20/17 [History] Aspirin 81 mg PO DAILY #30 tab.chew 07/22/17 [Rx] Metoprolol [Lopressor] 12.5 mg PO BID #60 tablet 07/22/17 [Rx] Warfarin [Coumadin] 4.5 mg PO SUTU 08/15/17 [History] Ipratropium/Albuterol Neb [Duoneb] 3 ml IH [id number] inhsol 08/19/17 [Rx] Diltiazem HCl [Diltiazem ER] 120 mg PO DAILY 08/29/17 [History] Gabapentin [Neurontin] 400 mg PO TID 08/29/17 [History] Meclizine [Antivert] 12.5 mg PO BID 08/29/17 [History] Buspirone HCl [Buspar] 10 mg PO BID 09/14/17 [History] Diclofenac Sodium [Voltaren] 75 mg PO BID 09/14/17 [History] FLUoxetine HCl [Prozac] 40 mg PO BID 09/14/17 [History] 3 Allergy/AdvReac Type Severity Reaction Status Date / Time baclofen Allergy Itching Verified 09/14/17 12:13 ciprofloxacin [From Cipro] Allergy Hives Verified 09/14/17 12:13 latex Allergy Rash Verified 09/14/17 12:13 Penicillins Allergy Hives Verified 09/14/17 12:13 prednisone Allergy Itching Verified 09/14/17 12:13 sulfamethoxazole Allergy Hives Verified 09/14/17 12:13 [From Bactrim] trimethoprim [From Bactrim] Allergy Hives Verified 09/14/17 12:13 cefdinir AdvReac Vomiting Verified 09/14/17 12:13 Oxycodone AdvReac Hallucinati Verified 09/14/17 12:13 ng All Systems PM: A 10-system review of systems was performed and is negative for pertinent findings except as documented above in the HPI. - Constitutional Vitals: Temp Pulse Resp BP Pulse Ox 98.0 F 77 16 133/68 96 09/14/17 15:46 09/14/17 15:46 09/14/17 15:46 09/14/17 15:46 09/14/17 15:46 General appearance: Present: A&O X 3, no acute distress - Head Head exam: Present: normocephalic - Eye Eye exam: Present: EOMI - ENT ENT exam: Present: mucous membranes moist - Respiratory Respiratory exam: Present: CTAB. Absent: accessory muscle use, rales, rhonchi, wheezes - Cardiovascular Cardiovascular exam: Present: RRR, +S1, +S2. Absent: diastolic murmur, gallop, rubs, systolic murmur - GI/Abdominal GI/Abdominal exam: Present: normal bowel sounds, soft, no peritoneal signs. Absent: distended, tenderness - Extremities Exam Extremities exam: Absent: pedal edema - Expanded Neurological Exam Patient oriented to: Present: person, place, time Speech: Present: slurred Cranial Nerves: EOM's intact PM: Normal, tongue deviation PM: Normal Cerebellar function: finger to nose: Normal, heel to zheng: Normal, Romberg: Normal Sensory exam: lower extremity light touch: Normal, upper extremity light touch: Normal Neuro motor strength exam: LUE: 4, RUE: 5, LLE: 3, RLE: 5 Coma Scale Eye Opening: Spontaneous Coma Scale Motor Response: Obeys Commands Coma Scale Verbal Response: Oriented Coma Scale Total: 15 - Psychiatric Psychiatric exam: Present: normal mood - Skin Skin exam: Present: normal color Internal Med - H&P Results - Labs CBC & Chem 7: 09/14/17 12:53 09/14/17 12:53
[2017-09-14] MEDS ORDERED: Naloxone 0.4 MG/ML INJ IVP PRN (16:26)
[2017-09-14 17:11] LABS: INR 2.1; Prothrombin Time 22.7 Seconds (9.4-12.1)
--- NOTE | 2017-09-14 17:13 | Neurology - Consult Note ---
Date of Encounter: 09/14/17 Time of Encounter: 17:11 Assessment and Plan (1) Complicated migraine Current Visit: Yes Status: Acute This could be complicated migraine which is diagnosis of exclusion. This patient does have risk factors for TIA/CVA however she is currently being treated with a combination of Aspirin and apixaban so she should be sufficiency protected in terms of stroke and TIA prevention. She does have history of psychological overlay the presence of stuttering speech supports that this would be the case again this time. She can not get MRI of brain and she has had recent carotid artery duple and echocardiography so i see no need of repeat stroke work up. She has not been responding to oral triptan. Treatment including antiemetic, toradol, IV steroid therapy antiiflammatories. In patients with frequent flyer history narcotic containing medications should be avoided in my opinion but would defer to medical team for treatment. (2) TIA (transient ischemic attack) Current Visit: No Status: Suspected As mentioned this is likely not a true TIA due to the pattern of speech difficulty with stuttering speech without other neurological deficits. She is already on aspirin and apixaban therefore will simply continue that. She has had recent work up during August/2017 and these include echocardiogram and carotid artery duplex which showed no significant pathology. I do not feel these need to be repeated. Qualifiers: Transient cerebral ischemia type: unspecified Qualified Code(s): G45.9 - Transient cerebral ischemic attack, unspecified History of Present Illness Chief complaint: headache and slurred speech HPI: Ms. Strong is a 52 year old female with PMH significant for CVA 2-3 years ago, on aspirin, episodes of TIAs, migriane, HTN, DM, hyperlipidemia, CAD atrial frillation, PVD COPD who developed migraine headache this morning and while being evaluated in the ER, she developed slurred and stuttering speech therefore she is admitted to the medical floor for work up for TIA. She has been a frequent flyer to ER with TIAs and headaches. She has had stroke work up in August/2017 which were essentially normal, this include carotid artery duplex and Echocardiogaphy. She suppose to take aspirin and Apixaban for atrial fibrillation. She has spinal stimulator and can not get MRI scanning. She had CT of head which was read no acute intracranial abnormality. Patient has had similar episode in recent months and she was at [facility] as well. She has had MRI negative for TIA symptoms. She was thought to have psychological overlay. Patient is having some stuttering slow speech but language content is intact. She had no focal neurological deficits. Past Med Surg Social Fam HX - Past Medical History Medical history: arthritis, asthma, atrial fibrillation, COPD, coronary artery disease, CVA, diabetes, GERD, hyperlipidemia, hypertension, migraine, myocardial infarction, peripheral artery disease, TIA, other Psychiatric history: anxiety, depression, prior suicide attempt, previous psychiatric hospitalization - Past Surgical History Surgical History: angioplasty/stent, appendectomy, cholecystectomy, knee replacement, other - Social History Smoking Status: Current every day smoker Smokeless Tobacco Status: No Alcohol use: none Drug use: none - Family History Father Living Status: Mother Living Status: Hx Family Cardiac Disorders: No Hx Family Respiratory Disorders: Yes (COPD) Hx Family Cancer: No Hx Family GI Disorders: No Hx Family Endocrine Disorder: No Hx Family Neuromuscular Disorders: No Hx Family Neurologic Disorders: No Hx Family HEENT Disorders: No Hx Family Autoimmune Disorders: No Medications and Allergies Budesonide/Formoterol 160/4.5 [Symbicort 160/4.5] 2 puff IH BIDR 12/30/16 [ History] Insulin ASPART [NovoLOG] 2 - 10 unit SQ TIDWM PRN 12/30/16 [History] Insulin Glargine,Hum.rec.anlog [Lantus Solostar] 36 unit SQ HS 12/30/16 [History ] Levalbuterol Tartrate [Xopenex Hfa] 1 puff IH BID 12/30/16 [History] Nitroglycerin [Nitrostat] 0.4 mg SL Q5M PRN 12/30/16 [History] Ranitidine HCl [Acid Poiser Balance] 150 mg PO BID 12/30/16 [History] Tiotropium [Spiriva] 18 mcg IH DAILY 12/30/16 [History] Calcium Polycarbophil [Fibercon] 625 mg PO DAILY 03/15/17 [History] Oxygen 2 l NS HS 03/15/17 [History] LORazepam [Ativan] 0.5 mg PO HS #30 tablet 06/13/17 [Rx] hydrOXYzine pamoate [HydrOXYzine Pamoate] 50 mg PO TID #90 06/20/17 [Rx] Atorvastatin [Lipitor] 40 mg PO HS 07/03/17 [History] HYDROcodone/Acet 5/325 mg [[place] 5-325 mg] 1 tab PO Q8H PRN 07/20/17 [History] Isosorbide MONOnitrate (24 HR) [Imdur] 60 mg PO DAILY 07/20/17 [History] Quetiapine Fumarate [Seroquel] 300 mg PO HS 07/20/17 [History] Warfarin [Coumadin] 3 mg PO MOWETHFRSA 07/20/17 [History] Aspirin 81 mg PO DAILY #30 tab.chew 07/22/17 [Rx] Metoprolol [Lopressor] 12.5 mg PO BID #60 tablet 07/22/17 [Rx] Warfarin [Coumadin] 4.5 mg PO SUTU 08/15/17 [History] Ipratropium/Albuterol Neb [Duoneb] 3 ml IH [id number] inhsol 08/19/17 [Rx] Diltiazem HCl [Diltiazem ER] 120 mg PO DAILY 08/29/17 [History] Gabapentin [Neurontin] 400 mg PO TID 08/29/17 [History] Meclizine [Antivert] 12.5 mg PO BID 08/29/17 [History] Buspirone HCl [Buspar] 10 mg PO BID 09/14/17 [History] Diclofenac Sodium [Voltaren] 75 mg PO BID 09/14/17 [History] FLUoxetine HCl [Prozac] 40 mg PO BID 09/14/17 [History] 3 Allergy/AdvReac Type Severity Reaction Status Date / Time baclofen Allergy Itching Verified 09/14/17 12:13 ciprofloxacin [From Cipro] Allergy Hives Verified 09/14/17 12:13 latex Allergy Rash Verified 09/14/17 12:13 Penicillins Allergy Hives Verified 09/14/17 12:13 prednisone Allergy Itching Verified 09/14/17 12:13 sulfamethoxazole Allergy Hives Verified 09/14/17 12:13 [From Bactrim] trimethoprim [From Bactrim] Allergy Hives Verified 09/14/17 12:13 cefdinir AdvReac Vomiting Verified 09/14/17 12:13 Oxycodone AdvReac Hallucinati Verified 09/14/17 12:13 ng All Systems: A 10-system review of systems was performed and is negative for pertinent findings except as documented above in the HPI. Physical Examination - Vital Signs Vital Signs: Initial Vital Signs Temp Pulse Resp BP Pulse Ox 98.2 F 78 16 127/73 96 09/14/17 12:11 09/14/17 12:11 09/14/17 12:11 09/14/17 12:11 09/14/17 12:11 - Constitutional General appearance: comfortable - Neurologic Detailed motor examination: full strength in all major muscle groups Motor examination - right side: 5/5: deltoids, biceps, triceps, wrist flexion, wrist extension, network designer, hip flexors, tibialis Anterior, quadriceps, toe extension (EHL), plantarflexion Motor examination - left side: 5/5: deltoids, biceps, triceps, wrist flexion, wrist extension, hip flexors, network designer, quadriceps, tibialis Anterior, toe extension (EHL), plantarflexion Detailed sensory examination: intact Posture: other (NOne) Reflex and gait examination: intact Reflexes: Biceps: 2+, Triceps: 2+, Brachioradialis: 2+, Patella: 2+, Achilles: 2 + Mental Status Examination: awake, alert, oriented to person, oriented to place, oriented to time, follows commands appropriately, answers questions appropriately, follows simple commands (Patient has stuttering/and slightly slow speech but language content is intact. ) Cranial nerve examination: PERRL, EOMI, visual you intact, corneal reflexes brisk symmetrically, sensory to face intact, mastication intact, no facial asymmetry is present, no dysarthria, hearing is intact symmetrically, soft palate elevates bilaterally upon phonation, gag reflex intact, flexes SCM and trapezius muscles symmetrically with full power, tongue protrudes midline, no atrophy or facial fasiculations present Cerebellar examination: no dysmetria, performs finger to nose and heel to zheng symmetrically without ataxia, no gait ataxia, no truncal ataxia, no difficulty with rapid alternating movements Results - Laboratory Findings CBC and BMP: 09/14/17 12:53 09/14/17 12:53 Abnormal lab findings: Abnormal lab results MPV 9.0 fL (9.4-12.4) L 09/14/17 12:53 PT 22.2 Seconds (9.4-12.1) H 09/14/17 12:53 Consult Discharge Plan - Plan Referrals: Maurisio Ward MD [Primary Care Provider] -
[2017-09-14] MEDS: Nicotine 21 MG PATCH.TD24 TD SCH (18:07)
[2017-09-14] MEDS ORDERED: Ketorolac 30 MG/ML VIAL IVP ONE (18:43)
[2017-09-15] MEDS ORDERED: NON-FORMULARY MEDICATION 1 EACH EACH (Oxygen [Oxygen] 2 L) NS SCH (01:15)
[2017-09-15] MEDS ORDERED: Nitroglycerin 0.4 MG TAB.SUBL SL PRN (01:15)
[2017-09-15] MEDS: Ipratropium/Albuterol Neb 3 ML IH SCH ×5 (02:20→22:23)
[2017-09-15] MEDS: Budesonide/Formoterol 160/4.5 MDI IH SCH ×3 (02:20→22:25)
[2017-09-15] MEDS: FLUoxetine 20 MG CAPSULE PO SCH ×3 (02:26→21:27)
[2017-09-15] MEDS: Gabapentin 400 MG CAPSULE PO SCH ×4 (02:26→21:26)
[2017-09-15] MEDS: hydrOXYzine pamoate 25 MG CAPSULE PO SCH ×4 (02:27→21:26)
[2017-09-15] MEDS: *HR* LORazepam 0.5 MG TABLET PO SCH ×2 (02:27→21:26)
[2017-09-15] MEDS: Diclofenac Sodium 75 MG TABLET PO SCH ×3 (02:27→21:24)
[2017-09-15] MEDS: Famotidine 20 MG TABLET PO SCH ×3 (02:32→21:24)
[2017-09-15 04:38] LABS: Hematocrit 38.2 % (35.3-44.9); Hemoglobin 12.5 g/dL (11.5-15.4); Immature Granulocytes % 2.2 % (0-4); Lymphocytes % 9.1 %; Mean Corpuscular HGB Conc 32.7 g/dL (31.6-35.5); Mean Corpuscular Hemoglobin 28.7 pg (28.0-33.3); Mean Corpuscular Volume 87.8 fL (83.0-100.0); Mean Platelet Volume 9.6 fL (9.4-12.4); Monocytes % 2.3 %; Platelet Count 223 K/mcL (140-400); Red Blood Count 4.35 M/mcL (3.82-4.97); Red Cell Distribution Width 13.5 % (11.5-14.5); Segmented Neutrophils % 86.2 %
[2017-09-15 04:39] LABS: Basophils % 0.2 %; Lymphocytes # 1.1 K/mcL (0.6-4.6); Monocytes # 0.3 K/mcL (0.0-1.3); Neutrophils # 10.3 K/mcL (1.6-8.9)
[2017-09-15 04:54] LABS: BUN/Creatinine Ratio 19 (6-26); Blood Urea Nitrogen 15 mg/dL (7-20); Calcium 9.2 mg/dL (8.6-10.8); Carbon Dioxide 22 mEq/L (19-29); Chloride 104 mEq/L (98-109); Chol/HDL Ratio 3.9 (0-4.9); Cholesterol 242 mg/dL (< 200); Glucose 213 mg/dL (70-99); HDL Cholesterol 62 mg/dL (40-59); LDL Cholesterol,Calculated 156 mg/dL (0-99); Osmolality,Calculated 295 (280-300); Sodium 139 mEq/L (136-145); Triglycerides 119 mg/dL (< 150); eGFR For African Americans > 60 (> 60); eGFR For Non-African Americans > 60 (> 60)
[2017-09-15] MEDS: Diltiazem CD (24hr) 120 MG CAPSULE PO SCH (09:06)
[2017-09-15] MEDS: Nicotine 21 MG PATCH.TD24 TD SCH (09:07)
[2017-09-15] MEDS: Aspirin 81 MG TAB.CHEW PO SCH (09:07)
[2017-09-15] MEDS: Isosorbide MONOnitrate (24 HR) 60 MG TAB.ER.24H PO SCH (09:07)
[2017-09-15] MEDS ORDERED: Ketorolac 30 MG/ML VIAL IM ONE (09:24)
[2017-09-15] MEDS ORDERED: Metoclopramide 10 MG/2 ML VIAL IVP STA (09:25)
[2017-09-15] MEDS: Levalbuterol 1 PUFF INHALER IH SCH ×2 (10:21→22:24)
[2017-09-15] MEDS: Tiotropium 18 MCG inhalation IH SCH (10:22)
[2017-09-15] MEDS ORDERED: D5% in Water 1,000 ML IVC PRN (12:46)
[2017-09-15] MEDS ORDERED: *HR* Dextrose 50 % in Water (Syg) 50 ML SYRINGE IVP PRN (12:46)
[2017-09-15] MEDS ORDERED: Dextrose Gel 15 GM PO PRN ×2 (12:46)
[2017-09-15] MEDS: Insulin LISPRO 300 UNITS/3 ML VIAL SQ SCH ×2 (13:18→18:24)
[2017-09-15] MEDS ORDERED: Prochlorperazine 10 MG/2 ML VIAL IVP ONE (13:34)
--- NOTE | 2017-09-15 18:37 | Electrocardiograph Report ---
[place] [id number] Test Date: 2017-09-14 Pat Name: Aliza Strong Department: 104 Room: 3B45 Gender: F Location Manager: : 1965 Requested By: Vivi Carranza Order Number: [id number] Reading MD: Humble Gregory DO Measurements Intervals [place] Rate: 77 P: 56 AL: 173 QRS: 15 QRSD: 146 T: 79 QT: 442 QTc: 474 Interpretive Statements SINUS RHYTHM LEFT BUNDLE BRANCH BLOCK Electronically Signed On 09-15-2017 18:36:06 EST by Humble Gregory DO
[2017-09-15] MEDS ORDERED: Insulin LISPRO 300 UNITS/3 ML VIAL SQ SCH (21:00)
--- NOTE | 2017-09-15 23:29 | Internal Med Progress Note ---
Date of Encounter: 09/15/17 Time of Encounter: 12:26 - Assessment and plan (1) Complicated migraine Current Visit: Yes Status: Acute Assessment and plan: Triptans in the past has been ineffective and also relatively contraindicated given stroke history. Will try combo of Compazine 10 mg IV x1 with IV Benadryl 12.5 mg IV x1 - Subjective Interval history: Had persistent episode of migraine. Another migrain cocktail was given but had no relief. - Constitutional Vitals: Temp Pulse Resp BP Pulse Ox 97.9 F 87 16 91/59 93 09/15/17 23:15 09/15/17 23:15 09/15/17 23:15 09/15/17 23:15 09/15/17 23:15 General appearance: Present: A&O X 3, no acute distress Exam: CVS: RRR Lungs: CTAB Ext: No edema Neuro: CN ii-xii in tact, EOMI, PERRLA, strength equal and normal in all UE and LE Internal Medicine: Result - Labs CBC & Chem 7: 09/15/17 04:03 09/15/17 04:03 Labs: Short CBC 09/15/17 Range/Units 04:03 WBC 11.9 H (4.3-11.1) K/mcL Hgb 12.5 (11.5-15.4) g/dL Hct 38.2 (35.3-44.9) % Plt Count 223 (140-400) K/mcL Neutrophils # 10.3 H (1.6-8.9) K/mcL BMP 09/15/17 04:03 Sodium 139 Potassium 4.0 Chloride 104 Carbon Dioxide 22 BUN 15 Creatinine 0.78 Glucose 213 H Calcium 9.2 - ABG Interpretation ABG results: PT/INR, D-dimer PT 22.7 Seconds (9.4-12.1) H 09/14/17 17:01 Consult Discharge Plan - Plan Referrals: Maurisio Ward MD [Primary Care Provider] -
[2017-09-16] MEDS: Ipratropium/Albuterol Neb 3 ML IH SCH ×2 (04:04→10:43)
[2017-09-16] MEDS: Insulin LISPRO 300 UNITS/3 ML VIAL SQ SCH ×2 (07:57→11:42)
[2017-09-16] MEDS: Nicotine 21 MG PATCH.TD24 TD SCH (08:04)
[2017-09-16] MEDS: Diclofenac Sodium 75 MG TABLET PO SCH (08:05)
[2017-09-16] MEDS: FLUoxetine 20 MG CAPSULE PO SCH (08:05)
[2017-09-16] MEDS: Gabapentin 400 MG CAPSULE PO SCH ×2 (08:05→14:20)
[2017-09-16] MEDS: Aspirin 81 MG TAB.CHEW PO SCH (08:05)
[2017-09-16] MEDS: Famotidine 20 MG TABLET PO SCH (08:05)
[2017-09-16] MEDS: Diltiazem CD (24hr) 120 MG CAPSULE PO SCH (08:06)
[2017-09-16] MEDS: Tiotropium 18 MCG inhalation IH SCH (08:27)
[2017-09-16] MEDS: Budesonide/Formoterol 160/4.5 MDI IH SCH (08:28)
[2017-09-16] MEDS: Levalbuterol 1 PUFF INHALER IH SCH (08:29)
[2017-09-16] MEDS: hydrOXYzine pamoate 25 MG CAPSULE PO SCH ×2 (09:49→14:20)
[2017-09-16] MEDS: Isosorbide MONOnitrate (24 HR) 60 MG TAB.ER.24H PO SCH (09:49)
[2017-09-16] MEDS ORDERED: Prochlorperazine 10 MG/2 ML VIAL IVP PRN (11:05)
[2017-09-16 11:58] VITALS: BP 122/66
[2017-09-16] MEDS ORDERED: Prochlorperazine 10 MG/2 ML VIAL IM ONE (12:47)
--- NOTE | 2017-09-16 14:14 | Discharge Summary ---
Date of Encounter: 09/16/17 Time of Encounter: 14:08 - Discharge Diagnosis (1) Complicated migraine Priority: Primary Status: Acute - Discharge Medications Home Medications: Budesonide/Formoterol 160/4.5 [Symbicort 160/4.5] 2 puff IH BIDR 12/30/16 [ History] Insulin ASPART [NovoLOG] 2 - 10 unit SQ TIDWM PRN 12/30/16 [History] Insulin Glargine,Hum.rec.anlog [Lantus Solostar] 36 unit SQ HS 12/30/16 [History ] Levalbuterol Tartrate [Xopenex Hfa] 1 puff IH BID 12/30/16 [History] Nitroglycerin [Nitrostat] 0.4 mg SL Q5M PRN 12/30/16 [History] Ranitidine HCl [Acid Carbide Tool Die Maker] 150 mg PO BID 12/30/16 [History] Tiotropium [Spiriva] 18 mcg IH DAILY 12/30/16 [History] Calcium Polycarbophil [Fibercon] 625 mg PO DAILY 03/15/17 [History] Oxygen 2 l NS HS 03/15/17 [History] LORazepam [Ativan] 0.5 mg PO HS #30 tablet 06/13/17 [Rx] hydrOXYzine pamoate [HydrOXYzine Pamoate] 50 mg PO TID #90 06/20/17 [Rx] Atorvastatin [Lipitor] 40 mg PO HS 07/03/17 [History] HYDROcodone/Acet 5/325 mg [[place] 5-325 mg] 1 tab PO Q8H PRN 07/20/17 [History] Isosorbide MONOnitrate (24 HR) [Imdur] 60 mg PO DAILY 07/20/17 [History] Quetiapine Fumarate [Seroquel] 300 mg PO HS 07/20/17 [History] Warfarin [Coumadin] 3 mg PO MOWETHFRSA 07/20/17 [History] Aspirin 81 mg PO DAILY #30 tab.chew 07/22/17 [Rx] Metoprolol [Lopressor] 12.5 mg PO BID #60 tablet 07/22/17 [Rx] Warfarin [Coumadin] 4.5 mg PO SUTU 08/15/17 [History] Ipratropium/Albuterol Neb [Duoneb] 3 ml IH [id number] inhsol 08/19/17 [Rx] Diltiazem HCl [Diltiazem ER] 120 mg PO DAILY 08/29/17 [History] Gabapentin [Neurontin] 400 mg PO TID 08/29/17 [History] Meclizine [Antivert] 12.5 mg PO BID 08/29/17 [History] Buspirone HCl [Buspar] 10 mg PO BID 09/14/17 [History] Diclofenac Sodium [Voltaren] 75 mg PO BID 09/14/17 [History] FLUoxetine HCl [Prozac] 40 mg PO BID 09/14/17 [History] DiphenhydraMINE [Benadryl] 12.5 mg PO Q8HR #9 mls 09/16/17 [Rx] Prochlorperazine Maleate [Compazine] 10 mg PO Q8HR #9 tablet 09/16/17 [Rx] Allergies/Adverse Reactions: 3 Allergy/AdvReac Type Severity Reaction Status Date / Time baclofen Allergy Itching Verified 09/14/17 12:13 ciprofloxacin [From Cipro] Allergy Hives Verified 09/14/17 12:13 latex Allergy Rash Verified 09/14/17 12:13 Penicillins Allergy Hives Verified 09/14/17 12:13 prednisone Allergy Itching Verified 09/14/17 12:13 sulfamethoxazole Allergy Hives Verified 09/14/17 12:13 [From Bactrim] trimethoprim [From Bactrim] Allergy Hives Verified 09/14/17 12:13 cefdinir AdvReac Vomiting Verified 09/14/17 12:13 Oxycodone AdvReac Hallucinati Verified 09/14/17 12:13 ng Procedures/tests Complete & Pending: Procedures Performed prior 72 hours Category Date Time Status ECG 12 lead ECG [ECG] Routine Y 09/14/17 12:47 Completed Date of admission: 09/14/17 18:23 Primary care physician: Maurisio Ward MD - Patient Status Disposition: Home, Self-Care Condition: Good Functional capacity at discharge: independent ambulation Overall status at discharge: patient is back to baseline - Discharge Instructions Follow Up With: Maurisio Ward MD [Primary Care Provider] - 09/26/17 8:45 am Darrell Galvez MD [Partnered Physician] - 09/21/17 10:15 am - Diet and Activity Activity: increase activity as tolerated Diet: advance to your usual diet Hospital course: Ms. Strong is a 52 year old female with PMH significant for CVA 2-3 years ago, on aspirin, episodes of TIAs, migriane, HTN, DM, hyperlipidemia, CAD atrial frillation, PVD COPD who developed migraine headache and while being evaluated in the ER, she developed slurred and stuttering speech therefore she is admitted to the medical floor for work up for TIA. She has been a frequent flyer to ER with TIAs and headaches. She has had stroke work up in 2016 which were essentially normal, this include carotid artery duplex and Echocardiogaphy. She suppose to take aspirin and Apixaban for atrial fibrillation. She has spinal stimulator and can not get MRI scanning. She had CT of head which was read no acute intracranial abnormality. Patient has had similar episode in recent months and she was at [facility] as well. She has had MRI negative for TIA symptoms. She was thought to have psychological overlay. Patient stuttering slow speech but language content is intact and gradually improved. She had no focal neurological deficits. Patient does have risk factors for TIA/CVA but she is currently being treated with coloration of aspirin and picks up and then she was sufficiently protected in terms of stroke and TIA prevention. However this is most likely complicated migraine as a diagnosis of exclusion. He did not improve with migraine cocktail of antiemetic , Toradol, and IV steroids. Narcotic medication was avoided as this could worsen patient's symptoms. Patient does not respond well to triptan's, and given her stroke history, is not good candidate for this. She was tried on IV Compazine 10 mg in combination with IV Benadryl 12.5 mg which was able to break her migraine. It took her migraine down to a 4 out of 10. She was discharged home with 9 tablets of Compazine and Benadryl. She has a neurology follow-up in one week. She is instructed to keep a migraine diary and bring to office. - Time Spent with Patient Total time spent providing and/or coordinating discharge services: - Constitutional Vitals: Temp Pulse Resp BP Pulse Ox 98.1 F 87 16 122/66 96 09/16/17 11:56 09/16/17 11:56 09/16/17 11:56 09/16/17 11:56 09/16/17 11:56 General appearance: Present: A&O X 3, no acute distress Exam: CVS: RRR Lungs: CTAB Ext: No edema Neuro: CN ii-xii in tact, EOMI, PERRLA, strength equal and normal in all UE and LE - VTE Reasons for not Prescribing Prophylaxis: Treatment not Indicated - Low risk for VTE
== END 2017-09-16 15:07 | disposition home or self-care (01) ==
LOC: EMEROO 12:09 → 3BNU 12:09 → UNDODISIN 09-16 15:07
PROVIDERS: ADMIT Registered Nurse; ATTEND Registered Nurse

== ENCOUNTER 2017-10-13 10:34 | Inpatient (IN) ==
[2017-10-13] MEDS ORDERED: 0.9 % Sodium Chloride 1,000 ML IVC ONE (10:40)
--- NOTE | 2017-10-13 10:46 | Emergency Department Note ---
Disposition Clinical Impression: Chest pain Disposition: Admitted As Inpatient Condition: Fair General Adult HPI - General Stated complaint: "a-fib", ANAMARIA Time Seen by Provider: 10/13/17 10:41 - History of Present Illness Pain Scale: 6 - Related Data Home Medications Medication Instructions Recorded Confirmed Budesonide/Formoterol 160/4.5 2 puff IH BIDR 12/30/16 10/13/17 [Symbicort 160/4.5] Insulin ASPART [NovoLOG] 2 - 10 unit SQ TIDWM PRN 12/30/16 10/13/17 Insulin Glargine,Hum.rec.anlog 36 unit SQ HS 12/30/16 10/13/17 [Lantus Solostar] Levalbuterol Tartrate [Xopenex Hfa] 1 puff IH BID 12/30/16 10/13/17 Nitroglycerin [Nitrostat] 0.4 mg SL Q5M PRN 12/30/16 10/13/17 Ranitidine HCl [Acid Meter Calibrator] 150 mg PO BID 12/30/16 10/13/17 Tiotropium [Spiriva] 18 mcg IH DAILY 12/30/16 10/13/17 Calcium Polycarbophil [Fibercon] 625 mg PO DAILY 03/15/17 10/13/17 Oxygen 2 l NS HS 03/15/17 10/13/17 Atorvastatin [Lipitor] 40 mg PO HS 07/03/17 10/13/17 Isosorbide MONOnitrate (24 HR) 60 mg PO DAILY 07/20/17 10/13/17 [Imdur] Quetiapine Fumarate [Seroquel] 300 mg PO HS 07/20/17 10/13/17 Warfarin [Coumadin] 3 mg PO SUMOWEFR 07/20/17 10/13/17 Warfarin [Coumadin] 4.5 mg PO TUTHSA 08/15/17 10/13/17 Diltiazem HCl [Diltiazem ER] 120 mg PO DAILY 08/29/17 10/13/17 Gabapentin [Neurontin] 400 mg PO TID 08/29/17 10/13/17 Meclizine [Antivert] 12.5 mg PO BID 08/29/17 10/13/17 Buspirone HCl [Buspar] 10 mg PO BID 09/14/17 10/13/17 Diclofenac Sodium [Voltaren] 75 mg PO BID 09/14/17 10/13/17 FLUoxetine HCl [Prozac] 40 mg PO BID 09/14/17 10/13/17 Azithromycin [Zithromax Tri-Jos] 500 mg PO DAILY 10/13/17 10/13/17 Furosemide [Lasix] 20 - 40 mg PO DAILY 10/13/17 10/13/17 Ipratropium/Albuterol Neb [Duoneb] 3 ml IH [id number] PRN 10/13/17 10/13/17 Potassium Chloride [K-Tab ER] 10 meq PO DAILY 10/13/17 10/13/17 Prochlorperazine Maleate 10 mg PO Q8HR PRN 10/13/17 10/13/17 [Compazine] predniSONE [PredniSONE] See Taper PO DAILY 10/13/17 10/13/17 Previous Rx's Medication Instructions Recorded LORazepam [Ativan] 0.5 mg PO HS #30 tablet 06/13/17 hydrOXYzine pamoate [HydrOXYzine 50 mg PO TID #90 06/20/17 Pamoate] Aspirin 81 mg PO DAILY #30 tab.chew 07/22/17 Metoprolol [Lopressor] 12.5 mg PO BID #60 tablet 07/22/17 DiphenhydraMINE [Benadryl] 12.5 mg PO Q8HR #9 mls 09/16/17 Allergies Allergy/AdvReac Type Severity Reaction Status Date / Time baclofen Allergy Itching Verified 09/25/17 18:02 ciprofloxacin [From Cipro] Allergy Hives Verified 09/25/17 18:02 latex Allergy Rash Verified 09/25/17 18:02 Penicillins Allergy Hives Verified 09/25/17 18:02 prednisone Allergy Itching Verified 09/25/17 18:02 sulfamethoxazole Allergy Hives Verified 09/25/17 18:02 [From Bactrim] trimethoprim [From Bactrim] Allergy Hives Verified 09/25/17 18:02 cefdinir AdvReac Vomiting Verified 09/25/17 18:02 Oxycodone AdvReac Hallucinati Verified 09/25/17 18:02 ng Past Medical History - Past Medical History Medical history: Reports: arthritis, asthma, atrial fibrillation, COPD, coronary artery disease, CVA, diabetes, GERD, hyperlipidemia, hypertension, migraine, myocardial infarction, peripheral artery disease, TIA, other Surgical history: Reports: angioplasty/stent, appendectomy, cholecystectomy, knee replacement, other Psychiatric history: Reports: anxiety, depression, prior suicide attempt, previous psychiatric hospitalization [employer] history: Reports: bilateral 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 - Social History Smoking Status: Current every day smoker Smokeless Tobacco Status: No Alcohol use: Reports: none Drug use: Reports: none Physical Exam - General General appearance: alert, in no apparent distress Course Vital Signs Temperature 98.4 F 10/13/17 10:41 Pulse Rate 75 10/13/17 10:41 Respiratory Rate 19 10/13/17 10:41 Blood Pressure 119/75 10/13/17 10:41 O2 Sat by Pulse Oximetry 95 10/13/17 10:41 Temperature 98.5 F 10/14/17 07:31 Pulse Rate 81 10/14/17 07:31 Respiratory Rate 16 10/14/17 10:02 Blood Pressure 135/84 10/14/17 07:31 O2 Sat by Pulse Oximetry 98 10/14/17 10:02 Oxygen Delivery Oxygen Delivery Room Air Medical Decision Making - Lab Data Result diagrams: 10/14/17 04:01 10/14/17 04:01 Lab Results 10/13/17 10/13/17 10/13/17 Range/Units 11:13 11:13 11:13 WBC 12.8 H (4.3-11.1) K/mcL RBC 4.58 (3.82-4.97) M/mcL Hgb 13.5 (11.5-15.4) g/dL Hct 40.8 (35.3-44.9) % MCV 89.1 (83.0-100.0) fL MCH 29.5 (28.0-33.3) pg MCHC 33.1 (31.6-35.5) g/dL RDW 14.2 (11.5-14.5) % Plt Count 246 (140-400) K/mcL MPV 9.3 L (9.4-12.4) fL Immature Gran % 2.5 (0-4) % Seg Neutrophils % 79.8 % Lymphocytes % 12.0 % Monocytes % 4.8 % Eosinophils % 0.5 % Basophils % 0.4 % Neutrophils # 10.2 H (1.6-8.9) K/mcL Lymphocytes # 1.5 (0.6-4.6) K/mcL Monocytes # 0.6 (0.0-1.3) K/mcL Eosinophils # 0.1 (0.0-0.6) K/mcL Basophils # 0.1 (0.0-0.2) K/mcL PT 12.5 H (9.4-12.1) Seconds INR 1.2 APTT 26.8 (26.0-36.0) Seconds D-Dimer < 215 (0-500) ng/mLFEU Sodium 138 (136-145) mEq/L Potassium 4.1 (3.5-5.1) mEq/L Chloride 105 (98-107) mEq/L Carbon Dioxide 23 (23-29) mEq/L BUN 20 (6-20) mg/dL Creatinine 0.76 (0.60-1.20) mg/dL Est GFR ( Amer) > 60 (> 60) Est GFR (Non-Af Amer) > 60 (> 60) BUN/Creatinine Ratio 26 (6-26) Glucose 243 H (70-105) mg/dL Calculated Osmolality 297 (280-300) Calcium 8.6 (8.6-10.3) mg/dL Troponin I (< 0.04) ng/mL B-Natriuretic Peptide (Less than 100) pg/mL TSH 0.671 (0.340-5.600) mcIU/mL 10/13/17 10/13/17 Range/Units 11:13 11:13 WBC (4.3-11.1) K/mcL RBC (3.82-4.97) M/mcL Hgb (11.5-15.4) g/dL Hct (35.3-44.9) % MCV (83.0-100.0) fL MCH (28.0-33.3) pg MCHC (31.6-35.5) g/dL RDW (11.5-14.5) % Plt Count (140-400) K/mcL MPV (9.4-12.4) fL Immature Gran % (0-4) % Seg Neutrophils % % Lymphocytes % % Monocytes % % Eosinophils % % Basophils % % Neutrophils # (1.6-8.9) K/mcL Lymphocytes # (0.6-4.6) K/mcL Monocytes # (0.0-1.3) K/mcL Eosinophils # (0.0-0.6) K/mcL Basophils # (0.0-0.2) K/mcL PT (9.4-12.1) Seconds INR APTT (26.0-36.0) Seconds D-Dimer (0-500) ng/mLFEU Sodium (136-145) mEq/L Potassium (3.5-5.1) mEq/L Chloride (98-107) mEq/L Carbon Dioxide (23-29) mEq/L BUN (6-20) mg/dL Creatinine (0.60-1.20) mg/dL Est GFR ( Amer) (> 60) Est GFR (Non-Af Amer) (> 60) BUN/Creatinine Ratio (6-26) Glucose (70-105) mg/dL Calculated Osmolality (280-300) Calcium (8.6-10.3) mg/dL Troponin I < 0.03 (< 0.04) ng/mL B-Natriuretic Peptide 36 (Less than 100) pg/mL TSH (0.340-5.600) mcIU/mL Attestation Statement - Attestation Attestation: I examined this patient and my medical decision-making was reviewed with the Resident Physician. I agree with the documented findings, disposition and treatment plan as described except to the extent set forth below. [id number] time provided Patient complains of dyspnea. She has a known history of atrial fibrillation and takes Coumadin. She does not appear in any acute distress on exam.
[2017-10-13 11:22] LABS: Basophils # 0.1 K/mcL (0.0-0.2); Basophils % 0.4 %; Eosinophils # 0.1 K/mcL (0.0-0.6); Eosinophils % 0.5 %; Hematocrit 40.8 % (35.3-44.9); Hemoglobin 13.5 g/dL (11.5-15.4); Immature Granulocytes % 2.5 % (0-4); Lymphocytes # 1.5 K/mcL (0.6-4.6); Mean Corpuscular HGB Conc 33.1 g/dL (31.6-35.5); Mean Corpuscular Hemoglobin 29.5 pg (28.0-33.3); Mean Corpuscular Volume 89.1 fL (83.0-100.0); Mean Platelet Volume 9.3 fL (9.4-12.4); Monocytes # 0.6 K/mcL (0.0-1.3); Monocytes % 4.8 %; Neutrophils # 10.2 K/mcL (1.6-8.9); Platelet Count 246 K/mcL (140-400); Red Blood Count 4.58 M/mcL (3.82-4.97); Red Cell Distribution Width 14.2 % (11.5-14.5); Segmented Neutrophils % 79.8 %
[2017-10-13 11:29] LABS: INR 1.2; Prothrombin Time 12.5 Seconds (9.4-12.1)
[2017-10-13] MEDS ORDERED: Ipratropium/Albuterol Neb 3 ML IH ONE (11:29)
[2017-10-13] MEDS ORDERED: methylPREDNISolone 125 MG/2 ML VIAL IVP ONE (11:29)
[2017-10-13 11:32] LABS: Activated Partial Thrombo Time 26.8 Seconds (26.0-36.0)
--- NOTE | 2017-10-13 11:36 | Emergency Department Note ---
Disposition Clinical Impression: Chest pain Qualifiers: Chest pain type: unspecified Qualified Code(s): R07.9 - Chest pain, unspecified Disposition: Admitted As Inpatient Condition: Fair Referrals: Maurisio Ward MD [Primary Care Provider] - Time of Disposition: 13:56 SOB HPI - General Chief Complaint: ED Shortness of Breath/Dyspnea Stated Complaint: "a-fib", ANAMARIA Time Seen by Provider: 10/13/17 10:41 Source: patient Mode of arrival: ambulatory Limitations: no limitations Nursing Notes Reviewed: Yes Vital Signs Reviewed: Yes - History of Present Illness 52-year-old female presents complaining of palpitations and chest pain. She is a history of atrial fibrillation anticoagulated on Coumadin, history of CAD, hypertension, COPD, hyperlipidemia. Patient states she has had some cough and wheezing last few days as well. She started having mid chest pain with some radiation into her left arm. The patient denies hemoptysis or DVTs, she has history of PE. She states her INRs have been therapeutic. Patient states her pain is currently a 7 out of 10, achy worse with deep inspiration. Pt Subjective Complaint: shortness of breath Onset (ago): day(s) Severity: moderate Consistency/Duration: intermittent Improves with: nothing Worsens with: lying flat, exertion Known history of: COPD, congestive heart failure Associated symptoms: Reports: chest pain, nausea/vomiting. Denies: pain with inspiration, fever, cough, wheezing, sputum production, orthopnea, lower extremity pain, polydipsia - Related Data Home Medications Medication Instructions Recorded Confirmed Budesonide/Formoterol 160/4.5 2 puff IH BIDR 12/30/16 09/25/17 [Symbicort 160/4.5] Insulin ASPART [NovoLOG] 2 - 10 unit SQ TIDWM PRN 12/30/16 09/25/17 Insulin Glargine,Hum.rec.anlog 36 unit SQ HS 12/30/16 09/25/17 [Lantus Solostar] Levalbuterol Tartrate [Xopenex Hfa] 1 puff IH BID 12/30/16 09/25/17 Nitroglycerin [Nitrostat] 0.4 mg SL Q5M PRN 12/30/16 09/25/17 Ranitidine HCl [Acid Roofing Contractor] 150 mg PO BID 12/30/16 09/25/17 Tiotropium [Spiriva] 18 mcg IH DAILY 12/30/16 09/25/17 Calcium Polycarbophil [Fibercon] 625 mg PO DAILY 03/15/17 09/25/17 Oxygen 2 l NS HS 03/15/17 09/25/17 Atorvastatin [Lipitor] 40 mg PO HS 07/03/17 09/25/17 HYDROcodone/Acet 5/325 mg [[place] 1 tab PO Q8H PRN 07/20/17 09/25/17 5-325 mg] Isosorbide MONOnitrate (24 HR) 60 mg PO DAILY 07/20/17 09/25/17 [Imdur] Quetiapine Fumarate [Seroquel] 300 mg PO HS 07/20/17 09/25/17 Warfarin [Coumadin] 3 mg PO SUMOWEFR 07/20/17 09/25/17 Warfarin [Coumadin] 4.5 mg PO TUTHSA 08/15/17 09/25/17 Diltiazem HCl [Diltiazem ER] 120 mg PO DAILY 08/29/17 09/25/17 Gabapentin [Neurontin] 400 mg PO TID 08/29/17 09/25/17 Meclizine [Antivert] 12.5 mg PO BID 08/29/17 09/25/17 Buspirone HCl [Buspar] 10 mg PO BID 09/14/17 09/25/17 Diclofenac Sodium [Voltaren] 75 mg PO BID 09/14/17 09/25/17 FLUoxetine HCl [Prozac] 40 mg PO BID 09/14/17 09/25/17 Previous Rx's Medication Instructions Recorded LORazepam [Ativan] 0.5 mg PO HS #30 tablet 06/13/17 hydrOXYzine pamoate [HydrOXYzine 50 mg PO TID #90 06/20/17 Pamoate] Aspirin 81 mg PO DAILY #30 tab.chew 07/22/17 Metoprolol [Lopressor] 12.5 mg PO BID #60 tablet 07/22/17 Ipratropium/Albuterol Neb [Duoneb] 3 ml IH [id number] inhsol 08/19/17 DiphenhydraMINE [Benadryl] 12.5 mg PO Q8HR #9 mls 09/16/17 Prochlorperazine Maleate 10 mg PO Q8HR #9 tablet 09/16/17 [Compazine] Allergies Allergy/AdvReac Type Severity Reaction Status Date / Time baclofen Allergy Itching Verified 09/25/17 18:02 ciprofloxacin [From Cipro] Allergy Hives Verified 09/25/17 18:02 latex Allergy Rash Verified 09/25/17 18:02 Penicillins Allergy Hives Verified 09/25/17 18:02 prednisone Allergy Itching Verified 09/25/17 18:02 sulfamethoxazole Allergy Hives Verified 09/25/17 18:02 [From Bactrim] trimethoprim [From Bactrim] Allergy Hives Verified 09/25/17 18:02 cefdinir AdvReac Vomiting Verified 09/25/17 18:02 Oxycodone AdvReac Hallucinati Verified 09/25/17 18:02 ng All systems ED: reviewed and negative except as stated. Review of Systems: As Per HPI Constitutional: Denies: fever, chills Eyes: Denies: eye pain ENT ED: Denies: ear pain Cardiovascular: Reports: as per HPI, chest pain, palpitations, dyspnea on exertion Respiratory: Reports: as per HPI, cough, dyspnea Gastrointestinal: Denies: abdominal pain, nausea, vomiting Genitourinary: Denies: urgency, dysuria Musculoskeletal: Denies: back pain Integumentary: Denies: rash Neurological: Denies: headache Past Medical History - Past Medical History Attestation: Yes The following information was validated with the patient. Source: patient Medical history: Reports: arthritis, asthma, atrial fibrillation, COPD, coronary artery disease, CVA, diabetes, GERD, hyperlipidemia, hypertension, migraine, myocardial infarction, peripheral artery disease, TIA, other Surgical history: Reports: angioplasty/stent, appendectomy, cholecystectomy, knee replacement, other Psychiatric history: Reports: anxiety, depression, prior suicide attempt, previous psychiatric hospitalization [employer] history: Reports: bilateral 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 - Social History Smoking Status: Current every day smoker Smokeless Tobacco Status: No Alcohol use: Reports: none Drug use: Reports: none Physical Exam Constitutional: NAD, HR 100, no acute distress Eyes: PERRLA, sclera anicteric ENT & Mouth: MM dry Neck: normal inspection, neck is supple Resp: Expiratory wheezes diffusely. CV: RRR, no m/g/r GI: Obese normal inspection, soft, no guarding or rigidity Neuro: A&O3, CNII-XII grossly intact, ARMSTRONG Skin: on limited exam, skin intact with no rashes or lesions - General General appearance: alert, in no apparent distress Course Course Narrative: 52-year-old female multiple comorbidities, she has some expiratory wheezes we will do a DuoNeb treatment also given aspirin, nitroglycerin trial for chest pain. Heart score is 5 given multiple comorbidities age and risk factors. - Reevaluation(s) Reevaluation #1: Nitro trial relieved chest pain or from a 7 down to 2 out of 10, patient is given aspirin, admitted to the hospital service her troponin was negative. Time: 13:55 Vital Signs Temperature 98.4 F 10/13/17 10:41 Pulse Rate 75 10/13/17 10:41 Respiratory Rate 19 10/13/17 10:41 Blood Pressure 119/75 10/13/17 10:41 O2 Sat by Pulse Oximetry 95 10/13/17 10:41 Temperature 98.4 F 10/13/17 10:41 Pulse Rate 74 10/13/17 12:13 Respiratory Rate 23 10/13/17 12:13 Blood Pressure 126/76 10/13/17 12:13 O2 Sat by Pulse Oximetry 98 10/13/17 12:13 Oxygen Delivery Oxygen Delivery Aerosol Mask Shortness of Breath/Dyspnea - Differential Diagnosis Likely: acute exacerbation of chronic obstructive airways disease, congestive heart failure, pneumonia - Medical Records Medical records reviewed: Yes I reviewed the patient's medical records. - Lab Data Lab results reviewed: Yes I reviewed the patient's lab results. Result diagrams: 10/13/17 11:13 10/13/17 11:13 Lab Results 10/13/17 10/13/17 10/13/17 Range/Units 11:13 11:13 11:13 WBC 12.8 H (4.3-11.1) K/mcL RBC 4.58 (3.82-4.97) M/mcL Hgb 13.5 (11.5-15.4) g/dL Hct 40.8 (35.3-44.9) % MCV 89.1 (83.0-100.0) fL MCH 29.5 (28.0-33.3) pg MCHC 33.1 (31.6-35.5) g/dL RDW 14.2 (11.5-14.5) % Plt Count 246 (140-400) K/mcL MPV 9.3 L (9.4-12.4) fL Immature Gran % 2.5 (0-4) % Seg Neutrophils % 79.8 % Lymphocytes % 12.0 % Monocytes % 4.8 % Eosinophils % 0.5 % Basophils % 0.4 % Neutrophils # 10.2 H (1.6-8.9) K/mcL Lymphocytes # 1.5 (0.6-4.6) K/mcL Monocytes # 0.6 (0.0-1.3) K/mcL Eosinophils # 0.1 (0.0-0.6) K/mcL Basophils # 0.1 (0.0-0.2) K/mcL PT 12.5 H (9.4-12.1) Seconds INR 1.2 APTT 26.8 (26.0-36.0) Seconds D-Dimer < 215 (0-500) ng/mLFEU Sodium 138 (136-145) mEq/L Potassium 4.1 (3.5-5.1) mEq/L Chloride 105 (98-107) mEq/L Carbon Dioxide 23 (23-29) mEq/L BUN 20 (6-20) mg/dL Creatinine 0.76 (0.60-1.20) mg/dL Est GFR ( Amer) > 60 (> 60) Est GFR (Non-Af Amer) > 60 (> 60) BUN/Creatinine Ratio 26 (6-26) Glucose 243 H (70-105) mg/dL Calculated Osmolality 297 (280-300) Calcium 8.6 (8.6-10.3) mg/dL Troponin I (< 0.04) ng/mL TSH 0.671 (0.340-5.600) mcIU/mL 10/13/17 Range/Units 11:13 WBC (4.3-11.1) K/mcL RBC (3.82-4.97) M/mcL Hgb (11.5-15.4) g/dL Hct (35.3-44.9) % MCV (83.0-100.0) fL MCH (28.0-33.3) pg MCHC (31.6-35.5) g/dL RDW (11.5-14.5) % Plt Count (140-400) K/mcL MPV (9.4-12.4) fL Immature Gran % (0-4) % Seg Neutrophils % % Lymphocytes % % Monocytes % % Eosinophils % % Basophils % % Neutrophils # (1.6-8.9) K/mcL Lymphocytes # (0.6-4.6) K/mcL Monocytes # (0.0-1.3) K/mcL Eosinophils # (0.0-0.6) K/mcL Basophils # (0.0-0.2) K/mcL PT (9.4-12.1) Seconds INR APTT (26.0-36.0) Seconds D-Dimer (0-500) ng/mLFEU Sodium (136-145) mEq/L Potassium (3.5-5.1) mEq/L Chloride (98-107) mEq/L Carbon Dioxide (23-29) mEq/L BUN (6-20) mg/dL Creatinine (0.60-1.20) mg/dL Est GFR ( Amer) (> 60) Est GFR (Non-Af Amer) (> 60) BUN/Creatinine Ratio (6-26) Glucose (70-105) mg/dL Calculated Osmolality (280-300) Calcium (8.6-10.3) mg/dL Troponin I < 0.03 (< 0.04) ng/mL TSH (0.340-5.600) mcIU/mL - Radiology Data Radiology results reviewed: Yes I reviewed the patient's radiology results. Chest X-Ray 10/13/17 10:40 IMPRESSION: No acute cardiopulmonary findings. D/ / China Crawford MD / China Crawford MD Interpreting Provider: China Crawford MD - EKG Data EKG attestation: Yes I reviewed and interpreted this EKG. EKG shows normal: Reports: sinus rhythm Rate: Reports: normal Rhythm: Reports: NSR (70 bpm AL 1627 QRS 142 QTc 486 no acute ischemic changes.) [place]/QRS: Reports: LBBB Interpretation: Reports: nonspecific ST-T wave changes - Core Measures AMI Core Measures Followed: Yes
[2017-10-13] MEDS ORDERED: Aspirin 81 MG TAB.CHEW PO ONE (11:46)
[2017-10-13 12:06] LABS: BUN/Creatinine Ratio 26 (6-26); Blood Urea Nitrogen 20 mg/dL (6-20); Calcium 8.6 mg/dL (8.6-10.3); Carbon Dioxide 23 mEq/L (23-29); Chloride 105 mEq/L (98-107); Glucose 243 mg/dL (70-105); Osmolality,Calculated 297 (280-300); Potassium 4.1 mEq/L (3.5-5.1); Sodium 138 mEq/L (136-145); eGFR For African Americans > 60 (> 60); eGFR For Non-African Americans > 60 (> 60)
[2017-10-13 12:14] LABS: Thyroid Stimulating Hormone 0.671 mcIU/mL (0.340-5.600)
[2017-10-13] MEDS ORDERED: Nitroglycerin 0.4 MG TAB.SUBL SL ONE (12:44)
[2017-10-13 12:51] LABS: D-Dimer < 215 ng/mLFEU (0-500)
[2017-10-13] MEDS ORDERED: Naloxone 0.4 MG/ML INJ IVP PRN (14:45)
--- NOTE | 2017-10-13 15:23 | Event Note ---
Date of Encounter: 10/13/17 Time of Encounter: 15:19 Patients seen and examined with nurse practitioner. Patient presents with a main component of chest pain that worsens with movement or inspiration. She has also been noticing some increase in baseline shortness of breath, cough and sputum production. She has a mild COPD exacerbation. We will give steroids nebulizer treatments and azithromycin. Slight element of volume overload will gently diurese today with 40 mg lasix daily. She has been having chest pains that worsens with movement and inspiration. D-dimers normal. EKG shows no ischemic changes. Check serial cardiac markers. She has history of coronary artery disease status post stents. Patient is full code. Observation admission
[2017-10-13] MEDS: MethylPREDNISolone 40 MG/ML VIAL IVP SCH (15:59)
[2017-10-13] MEDS: hydrOXYzine pamoate 25 MG CAPSULE PO SCH ×2 (16:01→20:13)
[2017-10-13] MEDS: Furosemide 40 MG/4 ML VIAL IVP SCH (16:01)
[2017-10-13] MEDS: Gabapentin 400 MG CAPSULE PO SCH ×2 (16:01→20:13)
--- NOTE | 2017-10-13 16:09 | Internal Med History&Physical ---
Date of Encounter: 10/13/17 Time of Encounter: 14:00 Assessment and Plan (1) Chest pain Current visit: Yes Status: Acute Acute chest pain that pt. states has been occurring intermittently for several months. States she began to have flutter in chest yesterday. Sx may be likely d/ t current CHF versus COPD exacerbation. Pt. reports history of atrial fibrillation. Patient states chest pain was centralized in chest and presented as a dull ache with radiation to left neck. Denies previous radiation. Limited echo on 08/30/17 showed LVEF of 55-60 percent, normal LV chamber size and function, sinus rhythm with BBB, and no evidence of PFO with agitated saline contrast. Initial troponin <0.03. Will trend x2. Continuous cardiac telemetry. Consider cardiology consult if troponin results are abnormal. We will continue patient's Coumadin with pharmacy dosing for recurrent atrial fibrillation, aspirin therapy, nitroglycerin when necessary, Lipitor, Lopressor , and Imdur. Pt. discussed with Dr. Velazquez who agrees with plan of care. Patient is at high risk for further morbidity, cardiac, and/or respiratory distress d/t current symptoms, history,and risk factors. Observation. Qualifiers: Chest pain type: unspecified Qualified Code(s): R07.9 - Chest pain, unspecified (2) Acute exacerbation of CHF (congestive heart failure) Current visit: Yes Status: Acute Acute exacerbation of CHF. BNP ordered. Pt. reports increasing SOB/dyspnea/ orthopnea over the past several days accompanied by weight gain of 11 pounds in 1 week. Pt. also reports chest pain w/SOB. Echocardiogram on 08/30/17 showed LVEF of 5560 percent, normal LV chamber size and function, sinus rhythm with BBB , and no evidence of a PFO with agitated saline contrast. Pt. has no hx of lasix use so will diurese with 40 mg IVP daily. Continuous cardiac telemetry. Monitor I&O and daily weight. 1.5L daily fluid restriction. Supplemental with titration and SPO2 monitoring. DuoNeb every 6 scheduled. Methylprednisolone 40 mg every 8. Qualifiers: Congestive heart failure type: diastolic Qualified Code(s): I50.33 - Acute on chronic diastolic (congestive) heart failure (3) COPD with exacerbation Current visit: Yes Status: Acute Mild acute exacerbation of COPD complicated by acute exacerbation of CHF and pneumonia. Continue patient's inhalers. 2 nebs every 6 scheduled. 40 mg methylprednisolone every 8. Supplemental O2 with titration w/SpO2 monitoring. (4) Leukocytosis Current visit: Yes Status: Acute Acute leukocytosis w/WBC of 12.8 on admission. Patient states she was diagnosed with bronchitis on Tuesday and placed on PO antibiotics. Will continue by mouth azithromycin while inpatient. Qualifiers: Leukocytosis type: other Qualified Code(s): D72.828 - Other elevated white blood cell count (5) CAD (coronary artery disease) Current visit: Yes Status: Chronic Hx of chronic CAD w/ previous MIs x3 w/stent placement x1 and CVAs x3. Continuous cardiac telemetry. Continue pts. Coumadin with pharmacy dosing, aspirin therapy, Lipitor, Lopressor, and Imdur. Qualifiers: Coronary Disease-Associated Artery/Lesion type: [place] artery [place] vs. transplanted heart: [place] heart Associated angina: without angina Qualified Code(s): I25.10 - Atherosclerotic heart disease of [place] coronary artery without angina pectoris (6) HLD (hyperlipidemia) Current visit: Yes Status: Chronic Hx of chronic HLD. Lipid panel in a.m. labs. Continue pts. Lipitor. Qualifiers: Hyperlipidemia type: pure hypercholesterolemia Qualified Code(s): E78.00 - Pure hypercholesterolemia, unspecified; E78.0 - Pure hypercholesterolemia (7) HTN (hypertension) Current visit: Yes Status: Chronic Hx of chronic HTN. Monitor pt. and VS. Continue pts. Imdur and lopressor. Qualifiers: Hypertension type: essential hypertension Qualified Code(s): I10 - Essential (primary) hypertension (8) Depression Current visit: Yes Status: Chronic Hx of chronic depression. Continue pts. Seroquel, Prozac, hydroxyzine pamoate, and Buspar. Qualifiers: Depression Type: major depressive disorder Major depression recurrence: recurrent Active/Remission status: currently active Psychotic features: without psychotic features Qualified Code(s): F33.2 - Major depressive disorder, recurrent severe without psychotic features (9) Diabetes mellitus type 2 in obese Current visit: Yes Status: Chronic Hx of chronic diabetes controlled by insulin. Continue pts. HS Lantus and add low-dose correction insulin sliding scale w/hypoglycemic protocol. BG checks ACHS. A1c in a.m. labs. (10) Tobacco abuse Current visit: Yes Status: Chronic Hx of chronic tobacco abuse. Pt. reports smoking 1/2-1 pack per day and is not willing to quit at this time. 14 mg nicotine patch ordered. (11) DVT prophylaxis Current visit: Yes Status: Acute Continue pts. Coumadin w/pharmacy dosing for DVT prophylaxis. Monitor pt. for signs of bleeding. Internal Medicine - H&P: HPI Chief complaint: SOB/Dyspnea Admitted From: Emergency Dept Plans for Post Hospital Care: Home History of present illness: Ms. Strong is a 52 year old female with medical hx of arthritis, asthma, atrial fibrillation, COPD, CAD, CVA 3 with last occurrence in June 2017, diabetes with insulin dependency, GERD, actually, HTN, migraine, [place] 3 with last occurrence in 2009, PAD, and TIA reports from the ED with chief complaint shortness of breath and dyspnea for several days. Patient states she has had increasing shortness of breath and usually uses 3-4L of home oxygen but her PCP told her to increase to 8-12L as needed. Patient's daughter states SPO2 has only been on the high 80s. Patient also reports cough and wheezing in addition to SOB. Patient denies recent illness, fever, chills, nausea, vomiting, diarrhea, constipation, changes in vision, chest pain, palpitations, abdominal pain, numbness, tingling, dizziness, lightheadedness, pre-syncope, or syncope. Past Med Surg Social Fam HX - Past Medical History Source: patient, old records reviewed, obtained from family Medical history: arthritis, asthma, atrial fibrillation, COPD, coronary artery disease, CVA (w/last in 06/2017), diabetes, GERD, hyperlipidemia, hypertension, migraine, myocardial infarction (x3 w/last in 2009), peripheral artery disease, TIA, other Psychiatric history: anxiety, depression, prior suicide attempt, previous psychiatric hospitalization - Past Surgical History Surgical History: angioplasty/stent (x1), appendectomy, cholecystectomy, knee replacement (Bilateral), other (Tonsillectomy, back surgery x5) - Social History Smoking Status: Current every day smoker Packs per day: 1/2 - 1 PPD - States she is not willing to quit at this time Smokeless Tobacco Status: No Alcohol use: none Drug use: none Current living situation: Home Activity Level: Independent ambulation Recent Out of Country Travel Within the Last 8 Weeks: No Exposure or Possible Exposure to Illness During Travel: No - Family History Father History Unknown: Yes Race: Family Member Ethnicity: Non- Living Status: Age at : 23 Cause of : Accident Mother Race: Family Member Ethnicity: Non- Living Status: Age at : 56 Cause of : CHF Hx Family Cardiac Disorders: Yes (CHF) Hx Family Respiratory Disorders: Yes (COPD) Sister Race: Family Member Ethnicity: Non- Living Status: Still Living Hx Family Musculoskeletal Disorders: Yes (Chronic back pain) Grandfather Race: Family Member Ethnicity: Non- Living Status: Age at : 65 Cause of : HI Hx Family Cardiac Disorders: Yes (HI, CAD) Internal Medicine - H&P: Meds Budesonide/Formoterol 160/4.5 [Symbicort 160/4.5] 2 puff IH BIDR 12/30/16 [ History] Insulin ASPART [NovoLOG] 2 - 10 unit SQ TIDWM PRN 12/30/16 [History] Insulin Glargine,Hum.rec.anlog [Lantus Solostar] 36 unit SQ HS 12/30/16 [History ] Levalbuterol Tartrate [Xopenex Hfa] 1 puff IH BID 12/30/16 [History] Nitroglycerin [Nitrostat] 0.4 mg SL Q5M PRN 12/30/16 [History] Ranitidine HCl [Acid Optical Instrument Repairer] 150 mg PO BID 12/30/16 [History] Tiotropium [Spiriva] 18 mcg IH DAILY 12/30/16 [History] Calcium Polycarbophil [Fibercon] 625 mg PO DAILY 03/15/17 [History] Oxygen 2 l NS HS 03/15/17 [History] LORazepam [Ativan] 0.5 mg PO HS #30 tablet 06/13/17 [Rx] hydrOXYzine pamoate [HydrOXYzine Pamoate] 50 mg PO TID #90 06/20/17 [Rx] Atorvastatin [Lipitor] 40 mg PO HS 07/03/17 [History] Isosorbide MONOnitrate (24 HR) [Imdur] 60 mg PO DAILY 07/20/17 [History] Quetiapine Fumarate [Seroquel] 300 mg PO HS 07/20/17 [History] Warfarin [Coumadin] 3 mg PO SUMOWEFR 07/20/17 [History] Aspirin 81 mg PO DAILY #30 tab.chew 07/22/17 [Rx] Metoprolol [Lopressor] 12.5 mg PO BID #60 tablet 07/22/17 [Rx] Warfarin [Coumadin] 4.5 mg PO TUTHSA 08/15/17 [History] Diltiazem HCl [Diltiazem ER] 120 mg PO DAILY 08/29/17 [History] Gabapentin [Neurontin] 400 mg PO TID 08/29/17 [History] Meclizine [Antivert] 12.5 mg PO BID 08/29/17 [History] Buspirone HCl [Buspar] 10 mg PO BID 09/14/17 [History] Diclofenac Sodium [Voltaren] 75 mg PO BID 09/14/17 [History] FLUoxetine HCl [Prozac] 40 mg PO BID 09/14/17 [History] DiphenhydraMINE [Benadryl] 12.5 mg PO Q8HR #9 mls 09/16/17 [Rx] Azithromycin [Zithromax Tri-Jos] 500 mg PO DAILY 10/13/17 [History] Furosemide [Lasix] 20 - 40 mg PO DAILY 10/13/17 [History] Ipratropium/Albuterol Neb [Duoneb] 3 ml IH [id number] PRN 10/13/17 [History] Potassium Chloride [K-Tab ER] 10 meq PO DAILY 10/13/17 [History] Prochlorperazine Maleate [Compazine] 10 mg PO Q8HR PRN 10/13/17 [History] predniSONE [PredniSONE] See Taper PO DAILY 10/13/17 [History] 3 Allergy/AdvReac Type Severity Reaction Status Date / Time baclofen Allergy Itching Verified 09/25/17 18:02 ciprofloxacin [From Cipro] Allergy Hives Verified 09/25/17 18:02 latex Allergy Rash Verified 09/25/17 18:02 Penicillins Allergy Hives Verified 09/25/17 18:02 prednisone Allergy Itching Verified 09/25/17 18:02 sulfamethoxazole Allergy Hives Verified 09/25/17 18:02 [From Bactrim] trimethoprim [From Bactrim] Allergy Hives Verified 09/25/17 18:02 cefdinir AdvReac Vomiting Verified 12/17/17 18:02 Oxycodone AdvReac Hallucinati Verified 09/25/17 18:02 ng All Systems PM: A 10-system review of systems was performed and is negative for pertinent findings except as documented above in the HPI. - Constitutional Constitutional: no chills, no fever(s), no night sweats - EENT Eyes: no change in vision, no discharge, no pain, no photophobia Ears: no ear discharge, no ear pain, no tinnitus Nose, mouth and throat: no dysphagia, no nasal discharge, no neck pain, no sore throat - Breasts Breasts: as per HPI - Cardiovascular Cardiovascular ROS IM: as per HPI, dyspnea, dyspnea on exertion, edema ( Bilateral LEs), orthopnea, no chest pain, no diaphoresis, no lightheadedness, no palpitations, no syncope - Respiratory Respiratory: as per HPI, cough, dyspnea, dyspnea on exertion, wheezing, no excessive phlegm production - Gastrointestinal Gastrointestinal: no abdominal pain, no diarrhea, no hematemesis, no hematochezia, no melena, no nausea, no vomiting - Genitourinary Genitourinary: no change in urinary stream, no dysuria, no flank pain, no hematuria Menstruation: as per HPI - Musculoskeletal Musculoskeletal ROS IM: no numbness, no tingling - Integumentary Integumentary IM: no rash, no unusual bruising - Neurological Neurological ROS: no confusion, no convulsions, no focal weakness, no numbness, no tingling, no tremor(s) - Psychiatric Psychiatric: as per HPI - Endocrine Endocrine IM: as per HPI - Hematologic/Lymphatic Hematologic/Lymphatic: no easy bruising - Allergic/Immunologic Allergic/Immunologic: as per HPI - Constitutional Vitals: Temp Pulse Resp BP Pulse Ox 98.4 F 74 16 128/67 98 10/13/17 10:41 10/13/17 12:13 10/13/17 15:47 10/13/17 15:47 10/13/17 12:13 General appearance: Present: cooperative, mild distress, A&O X 3, morbidly obese , pleasant, answers questions appropriately - Head Head exam: Present: atraumatic, normal inspection, normocephalic - Eye Eye exam: Present: PERRL, conjuntiva pink, sclera anicteric Pupils: Present: PERRL - ENT ENT exam: Present: normal exam - Neck Neck exam general surgery: Present: normal inspection, supple, trachea midline - Respiratory Respiratory exam: Present: accessory muscle use, wheezes (Bilateral all lobes) - Cardiovascular Cardiovascular exam: Present: RRR, +S1, +S2. Absent: diastolic murmur, gallop, rubs, systolic murmur - GI/Abdominal GI/Abdominal exam: Present: normal bowel sounds, soft, no peritoneal signs. Absent: distended, tenderness - Rectal Rectal exam: Present: deferred - Additional comments: exam deferred. - Extremities Exam Extremities exam: Present: pedal edema, warm, radial pulses palpable and symmetrical. Absent: calf tenderness, cyanotic - Back Exam Back exam: Present: normal inspection - Neurological Exam Neurological exam: Present: CN II-XII intact, oriented X3, no focal deficits. Absent: pronater drift, facial droop, speech deficit - Psychiatric Psychiatric exam: Present: normal affect, normal mood - Skin Skin exam: Present: dry, intact Internal Med - H&P Results - Labs CBC & Chem 7: 10/13/17 11:13 10/13/17 11:13 - EKG Data EKG shows normal: sinus rhythm - EKG Data Prior EKG available for review: yes When compared to previous EKG: there is no significant change EKG comments: 10/13/17 16:20 EKG dated 09/25/17 shows sinus rhythm with left bundle branch block. EKG dated 10/13/17 shows sinus rhythm with left bundle branch block. - Diagnostic Studies Chest x-ray Additional comments: Impressions Chest X-Ray 10/13/17 10:40 IMPRESSION: No acute cardiopulmonary findings. D/ / China Crawford MD / China Crawford MD Interpreting Provider: China Crawford MD
[2017-10-13] MEDS: Ipratropium/Albuterol Neb 3 ML IH SCH ×2 (16:24→22:18)
[2017-10-13] MEDS ORDERED: D5% in Water 1,000 ML IVC PRN (17:06)
[2017-10-13] MEDS ORDERED: *HR* Dextrose 50 % in Water (Syg) 50 ML SYRINGE IVP PRN (17:06)
[2017-10-13] MEDS ORDERED: Dextrose Gel 15 GM/37.5 ML TUBE PO PRN ×2 (17:06)
[2017-10-13] MEDS ORDERED: Warfarin perPT PO PRN (18:00)
[2017-10-13] MEDS ORDERED: MethylPREDNISolone 40 MG/ML VIAL IVP SCH (18:00)
[2017-10-13] MEDS ORDERED: Warfarin 2.5 MG, Warfarin 2 MG PO ONE (18:00)
[2017-10-13] MEDS: Nicotine 14 MG PATCH.TD24 TD SCH (18:04)
[2017-10-13] MEDS: Insulin LISPRO 300 UNITS/3 ML VIAL SQ SCH ×2 (18:04→20:12)
[2017-10-13] MEDS: Nitroglycerin 0.4 MG TAB.SUBL SL PRN ×2 (19:56→20:03)
[2017-10-13] MEDS: FLUoxetine 20 MG CAPSULE PO SCH (20:13)
[2017-10-13] MEDS: Famotidine 20 MG TABLET PO SCH (20:13)
[2017-10-13] MEDS: *HR* LORazepam 0.5 MG TABLET PO SCH (20:13)
[2017-10-13] MEDS: Insulin DETEMIR 100 UNIT/ML X5UNITS SQ SCH (20:16)
[2017-10-13] MEDS ORDERED: Diclofenac Sodium 75 MG TABLET PO SCH (21:00)
[2017-10-13] MEDS ORDERED: Furosemide 40 MG/4 ML VIAL IVP SCH (21:00)
[2017-10-13] MEDS: Levalbuterol 1 PUFF INHALER IH SCH ×2 (22:18→22:20)
[2017-10-13] MEDS: Budesonide/Formoterol 160/4.5 MDI IH SCH (22:21)
[2017-10-14] MEDS: MethylPREDNISolone 40 MG/ML VIAL IVP SCH (00:27)
[2017-10-14] MEDS: Ipratropium/Albuterol Neb 3 ML IH SCH ×4 (04:14→22:24)
[2017-10-14 04:40] LABS: Basophils % 0.2 %; Hematocrit 41.1 % (35.3-44.9); Hemoglobin 13.2 g/dL (11.5-15.4); Immature Granulocytes % 2.1 % (0-4); Lymphocytes # 1.2 K/mcL (0.6-4.6); Lymphocytes % 7.4 %; Mean Corpuscular HGB Conc 32.1 g/dL (31.6-35.5); Mean Corpuscular Hemoglobin 28.4 pg (28.0-33.3); Mean Corpuscular Volume 88.6 fL (83.0-100.0); Mean Platelet Volume 9.6 fL (9.4-12.4); Monocytes # 0.4 K/mcL (0.0-1.3); Monocytes % 2.3 %; Neutrophils # 14.8 K/mcL (1.6-8.9); Platelet Count 233 K/mcL (140-400); Red Blood Count 4.64 M/mcL (3.82-4.97)
[2017-10-14 04:50] LABS: Alanine Aminotransferase 31 Units/L (7-52); Albumin/Globulin Ratio 1.5 (1.1-2.2); Alkaline Phosphatase 101 Units/L (34-104); Aspartate Amino Transferase 14 Units/L (13-39); BUN/Creatinine Ratio 27 (6-26); Bilirubin,Total 0.3 mg/dL (0.3-1.0); Blood Urea Nitrogen 21 mg/dL (6-20); Calcium 9.1 mg/dL (8.6-10.3); Carbon Dioxide 27 mEq/L (23-29); Chloride 100 mEq/L (98-107); Chol/HDL Ratio 4.5 (0-4.9); Cholesterol 294 mg/dL (< 200); Globulin 2.6 g/dL (2.4-3.5); Glucose 185 mg/dL (70-105); HDL Cholesterol 65 mg/dL (40-59); LDL Cholesterol,Calculated 193 mg/dL (0-99); Magnesium 2.2 mg/dL (1.6-2.6); Osmolality,Calculated 294 (280-300); Potassium 3.6 mEq/L (3.5-5.1); Sodium 138 mEq/L (136-145); Total Protein 6.6 g/dL (6.4-8.9); Triglycerides 179 mg/dL (< 150); eGFR For African Americans > 60 (> 60); eGFR For Non-African Americans > 60 (> 60)
[2017-10-14] MEDS ORDERED: Insulin LISPRO 300 UNITS/3 ML VIAL SQ SCH ×2 (07:30→17:10)
[2017-10-14] MEDS ORDERED: Isosorbide MONOnitrate (24 HR) 60 MG TAB.ER.24H PO SCH (09:00)
[2017-10-14] MEDS ORDERED: Azithromycin 250 MG TABLET PO SCH (09:00)
[2017-10-14] MEDS ORDERED: Diltiazem CD (24hr) 120 MG CAPSULE PO SCH (09:00)
--- NOTE | 2017-10-14 09:21 | Cardiology Consult Note ---
Date of Encounter: 10/14/17 Time of Encounter: 09:30 Assessment and Plan (1) COPD with exacerbation Current Visit: Yes Status: Acute Per Cardiology: Suspected acute on chronic COPD exacerbation. Management per primary service, on antibiotics and steroids. Suspect mild leukocytosis related to steroids. (2) PAF (paroxysmal atrial fibrillation) Current Visit: No Status: Chronic Per Cardiology: Known history of paroxysmal atrial fibrillation. Recently seen in outpatient setting by electrophysiology with loop recorder interrogation showing multiple atrial high rates with addition of Cardizem CD 120 mg by mouth daily. Symptoms seem to correlate with suspected A. fib with RVR suspect exacerbated with COPD exacerbation. Will interrogate loop recorder. Increase Cardizem CD to 240mg PO daily, will switch back to home dose beta lizzette Toprol-XL 25 mg by mouth daily. (3) Subtherapeutic anticoagulation Current Visit: Yes Status: Acute Per Cardiology: On Coumadin being managed by [facility] outpatient setting. Reports compliance. Target INR 2.0-3.0. (4) Chest pain Current Visit: Yes Status: Acute Per Cardiology: Chest pain symptoms occurring at rest seem to correlate with palpitations and fluttering. Troponins negative 4. Recent echo August 2017 showed EF 55-60%, NSWMA. Qualifiers: Chest pain type: unspecified Qualified Code(s): R07.9 - Chest pain, unspecified (5) Abnormal stress test Current Visit: No Status: Chronic Per Cardiology: Recent stress test June 2017 showed small size, very mild intensity perfusion defect involving the apex during stress with gated EF 43%. Per review of records medical management recommended at that time due to recent concerns of possible CVA and received TPA at [facility]. Again, EF currently on echo August 2017 55-60% with NSWMA. (6) CAD (coronary artery disease) Current Visit: Yes Status: Chronic Per Cardiology: Atypical chest pain symptoms occurring at rest and correlate with palpitations exacerbated with acute COPD exacerbation. Troponins negative 4. Prior to event , has not been utilizing nitroglycerin glycerin pills. Last catheterization at [facility] January 2016 which showed proximal LAD 30-40% in-stent restenosis, proximal RCA 30% lesion. Patient also noted to have small diagonal 1 branch ostial 60% lesion being medically managed. Has previously failed Ranexa therapy due to ineffectiveness. Currently on Imdur 60mg PO daily, can consider titration. We' ll review and discuss with Dr. Betancur. Patient agreeable to continue to monitor and reevaluate in outpatient setting at this time. On long-acting nitrate, statin, beta lizzette, on asa. Has appt with Dr. Gregory next week. Qualifiers: Coronary Disease-Associated Artery/Lesion type: [place] artery [place] vs. transplanted heart: [place] heart Associated angina: without angina Qualified Code(s): I25.10 - Atherosclerotic heart disease of [place] coronary artery without angina pectoris Discussion w patient/family: The assessment and plan as outlined above was discussed with the patient who expressed understanding and agreement. All questions were answered. Thank you for involving us in the care of your patient. Please call with any questions. History of Present Illness Consult date: 10/14/17 Requesting physician: Vibha Hazel Consult reason: CP, Recent abnormal ST Chief complaint: Chest fluttering, Chest pain History of present illness: Ms. Strong is a 52 year old female with a relevant past medical history of hypertension, DM 2, CAD, paroxysmal atrial fibrillation, history of CVA, obstructive sleep apnea, history of left bundle branch block. Follows with Dr. Gregory with cardiology. Cardiology consult today for palpitations and chest pain symptoms. Patient reports followed up with Dr. Gregory after last hospital stay with very mild abnormal stress test and had long-acting nitrate dose increased with no chest pain at that visit. She also confirms followed up with Dr. Gallo Grey regarding loop recorder regarding atrial fibrillation and was started on Cardizem. She reports up until about 2 days ago her normal state of health. She reports she noticed worsening of her "COPD and her coughing "with development of yellow phlegm. Additionally, reports episodes of "fluttering sensations and thumping sensations in her chest intermittently the past few days "that causes "chest discomfort". She reports with the symptoms she does feel mild short of breath and feels hot and sweaty. She denies any dizziness, syncope, falls. She denies any fever, chills, nausea, vomiting, diarrhea. Reports now taking Coumadin being followed by [facility] and denies any active bleeding or blood loss. Reports had been on Eliquis in the past however discontinued due to GI bleeding. She reports compliance with medications. She reports prior to the past 2 days has not been utilizing nitroglycerin pills. He did utilize during this recent episodes with very minimal relief. Past Med Surg Social Fam HX - Past Medical History Attestation: Yes The following information was validated with the patient. Source: patient, old records reviewed Medical history: arthritis, asthma, atrial fibrillation, COPD, coronary artery disease, CVA (w/last in 06/2017), diabetes, GERD, hyperlipidemia, hypertension, migraine, myocardial infarction (x3 w/last in 2009), peripheral artery disease, TIA, other Psychiatric history: anxiety, depression, prior suicide attempt, previous psychiatric hospitalization - Past Surgical History Surgical History: angioplasty/stent (x1), appendectomy, cholecystectomy, knee replacement (Bilateral), other (Tonsillectomy, back surgery x5) - Social History Smoking Status: Current every day smoker Packs per day: 1/2 - 1 PPD - States she is not willing to quit at this time Smokeless Tobacco Status: No Alcohol use: none Drug use: none - Family History Father History Unknown: Yes Race: Family Member Ethnicity: Non- Living Status: Age at : 23 Cause of : Accident Sister Race: Family Member Ethnicity: Non- Living Status: Still Living Hx Family Musculoskeletal Disorders: Yes (Chronic back pain) Grandfather Race: Family Member Ethnicity: Non- Living Status: Age at : 65 Cause of : [place] Hx Family Cardiac Disorders: Yes ([place], CAD) Mother Race: Family Member Ethnicity: Non- Living Status: Age at : 56 Cause of : CHF Hx Family Cardiac Disorders: Yes (CHF) Hx Family Respiratory Disorders: Yes (COPD) Hx Family Cancer: No Hx Family GI Disorders: No Hx Family Endocrine Disorder: No Hx Family Neuromuscular Disorders: No Hx Family Neurologic Disorders: No Hx Family HEENT Disorders: No Hx Family Autoimmune Disorders: No Medications and Allergies Budesonide/Formoterol 160/4.5 [Symbicort 160/4.5] 2 puff IH BIDR 12/30/16 [ History] Insulin ASPART [NovoLOG] 2 - 10 unit SQ TIDWM PRN 12/30/16 [History] Insulin Glargine,Hum.rec.anlog [Lantus Solostar] 36 unit SQ HS 12/30/16 [History ] Levalbuterol Tartrate [Xopenex Hfa] 1 puff IH BID 12/30/16 [History] Nitroglycerin [Nitrostat] 0.4 mg SL Q5M PRN 12/30/16 [History] Ranitidine HCl [Acid Lockstitch Collar Setter] 150 mg PO BID 12/30/16 [History] Tiotropium [Spiriva] 18 mcg IH DAILY 12/30/16 [History] Calcium Polycarbophil [Fibercon] 625 mg PO DAILY 03/15/17 [History] Oxygen 2 l NS HS 03/15/17 [History] LORazepam [Ativan] 0.5 mg PO HS #30 tablet 06/13/17 [Rx] hydrOXYzine pamoate [HydrOXYzine Pamoate] 50 mg PO TID #90 06/20/17 [Rx] Atorvastatin [Lipitor] 40 mg PO HS 07/03/17 [History] Isosorbide MONOnitrate (24 HR) [Imdur] 60 mg PO DAILY 07/20/17 [History] Quetiapine Fumarate [Seroquel] 300 mg PO HS 07/20/17 [History] Warfarin [Coumadin] 3 mg PO SUMOWEFR 07/20/17 [History] Aspirin 81 mg PO DAILY #30 tab.chew 07/22/17 [Rx] Metoprolol [Lopressor] 12.5 mg PO BID #60 tablet 07/22/17 [Rx] Warfarin [Coumadin] 4.5 mg PO TUTHSA 08/15/17 [History] Diltiazem HCl [Diltiazem ER] 120 mg PO DAILY 08/29/17 [History] Gabapentin [Neurontin] 400 mg PO TID 08/29/17 [History] Meclizine [Antivert] 12.5 mg PO BID 08/29/17 [History] Buspirone HCl [Buspar] 10 mg PO BID 09/14/17 [History] Diclofenac Sodium [Voltaren] 75 mg PO BID 09/14/17 [History] FLUoxetine HCl [Prozac] 40 mg PO BID 09/14/17 [History] DiphenhydraMINE [Benadryl] 12.5 mg PO Q8HR #9 mls 09/16/17 [Rx] Azithromycin [Zithromax Tri-Jos] 500 mg PO DAILY 10/13/17 [History] Furosemide [Lasix] 20 - 40 mg PO DAILY 10/13/17 [History] Ipratropium/Albuterol Neb [Duoneb] 3 ml IH [id number] PRN 10/13/17 [History] Potassium Chloride [K-Tab ER] 10 meq PO DAILY 10/13/17 [History] Prochlorperazine Maleate [Compazine] 10 mg PO Q8HR PRN 10/13/17 [History] predniSONE [PredniSONE] See Taper PO DAILY 10/13/17 [History] 3 Allergy/AdvReac Type Severity Reaction Status Date / Time baclofen Allergy Itching Verified 09/25/17 18:02 ciprofloxacin [From Cipro] Allergy Hives Verified 09/25/17 18:02 latex Allergy Rash Verified 09/25/17 18:02 Penicillins Allergy Hives Verified 09/25/17 18:02 prednisone Allergy Itching Verified 09/25/17 18:02 sulfamethoxazole Allergy Hives Verified 09/25/17 18:02 [From Bactrim] trimethoprim [From Bactrim] Allergy Hives Verified 09/25/17 18:02 cefdinir AdvReac Vomiting Verified 09/25/17 18:02 Oxycodone AdvReac Hallucinati Verified 09/25/17 18:02 ng All Systems Review: A 10-system review of systems was performed and is negative for pertinent findings except as documented above in the HPI. - Constitutional Constitutional: fatigue - Cardiovascular Cardiovascular: as per HPI, chest pain at rest, dyspnea at rest, dyspnea on exertion, palpitations - Respiratory Respiratory: cough, dyspnea Physical Examination Vital Signs, Last 4 Hours Temp Pulse Resp BP Pulse Ox 10/14/17 07:31 98.5 F 81 16 135/84 97 General: Conversant, No Apparent Distress HEENT: Atraumatic, Normocephaly, Mucus Membranes Moist Neck: No JVD, Normal carotid pulses Cardiac: Reg Rate and Rhythm, Normal S1 and S2, No Murmur Lungs: Normal Breath Sounds, No Wheeze, Rales, Rhonchi Neuro: Alert and responsive, No focal deficits noted Abdomen: Soft, Non-Tender Skin: No rashes noted on visualized skin Musculoskeletal: No Chest Wall Tenderness Extremities: No Clubbing, No Cyanosis, No Edema, Normal Pulses Results 10/14/17 04:01 10/14/17 04:01 Lab Results Laboratory Tests 08/19/17 10/13/17 10/13/17 03:14 11:13 11:13 WBC 16.3 H INR 1.2 D-Dimer < 215 Creatinine Est GFR (Non-Af Amer) Troponin I B-Natriuretic Peptide LDL Cholesterol, Calc TSH 0.671 10/13/17 10/13/17 10/13/17 11:13 11:13 17:13 WBC INR D-Dimer Creatinine Est GFR (Non-Af Amer) Troponin I < 0.03 < 0.03 B-Natriuretic Peptide 36 LDL Cholesterol, Calc TSH 10/13/17 10/14/17 10/14/17 23:07 04:01 04:01 WBC 16.8 H INR D-Dimer Creatinine 0.77 Est GFR (Non-Af Amer) > 60 Troponin I < 0.03 B-Natriuretic Peptide LDL Cholesterol, Calc 193 H TSH 10/14/17 10/14/17 04:01 04:01 WBC INR D-Dimer Creatinine Est GFR (Non-Af Amer) Troponin I < 0.03 B-Natriuretic Peptide LDL Cholesterol, Calc TSH 0.230 L ITS Impressions Chest X-Ray 10/13/17 10:40 IMPRESSION: No acute cardiopulmonary findings. D/ / China Crawford MD / China Crawford MD Interpreting Provider: China Crawford MD Active Medications Acetaminophen (Tylenol) 650 mg PO Q6HR PRN PRN Reason: Mild Pain (1-3) Stop: 04/14/18 14:46 Albuterol/Ipratropium (Duoneb) 3 ml IH [id number] [facility] Stop: 04/14/18 16:01 Last Admin: 10/14/17 04:14 Dose: Not Given Aspirin (Aspirin) 81 mg PO DAILY [facility] Stop: 04/15/18 09:01 Atorvastatin Calcium (Lipitor) 40 mg PO HS [facility] Stop: 04/14/18 21:01 Last Admin: 10/13/17 20:12 Dose: 40 mg Azithromycin (Zithromax) 500 mg PO DAILY [facility] Stop: 04/15/18 09:01 Budesonide/Formoterol Fumarate (Symbicort) 2 puff IH BIDR [facility] PRN Reason: Protocol Stop: 04/14/18 22:01 Last Admin: 10/13/17 22:21 Dose: 2 puff Buspirone HCl (Buspar) 10 mg PO BID [facility] Stop: 04/14/18 21:01 Last Admin: 10/13/17 20:13 Dose: 10 mg Calcium Polycarbophil (Fibercon) 625 mg PO DAILY [facility] Stop: 04/15/18 09:01 Dextrose/Water (Dextrose 50% (Syg)) 25 ml IVP AD PRN PRN Reason: Hypoglycemia Stop: 04/14/18 17:07 Diltiazem HCl (Cardizem Cd) 120 mg PO DAILY [facility] Stop: 04/15/18 09:01 Diphenhydramine HCl (Benadryl) 12.5 mg PO Q8HR [facility] Stop: 04/14/18 16:01 Last Admin: 10/14/17 00:26 Dose: 12.5 mg Famotidine (Pepcid) 20 mg PO BID [facility] Stop: 04/14/18 21:01 Last Admin: 10/13/17 20:13 Dose: 20 mg Fluoxetine HCl (Prozac) 40 mg PO BID [facility] PRN Reason: Protocol Stop: 04/14/18 21:01 Last Admin: 10/13/17 20:13 Dose: 40 mg Furosemide (Lasix) 40 mg IVP DAILY [facility] Stop: 04/14/18 16:01 Last Admin: 10/13/17 16:01 Dose: 40 mg Gabapentin (Neurontin) 400 mg PO TID [facility] Stop: 04/14/18 15:01 Last Admin: 10/13/17 20:13 Dose: 400 mg Glucagon (Glucagen) 1 mg IM ONCE PRN PRN Reason: Hypoglycemia Stop: 04/14/18 17:07 Glucose (Gluctose) 15 gm PO ONCE PRN PRN Reason: Hypoglycemia Stop: 04/14/18 17:07 Glucose (Gluctose) 30 gm PO ONCE PRN PRN Reason: Hypoglycemia Stop: 04/14/18 17:07 Hydroxyzine Pamoate (Hydroxyzine Pamoate) 50 mg PO TID [facility] Stop: 04/14/18 15:01 Last Admin: 10/13/17 20:13 Dose: 50 mg Dextrose (Dextrose 5%) 1,000 mls @ 100 mls/hr IVC .Q10H PRN PRN Reason: HYPOGLYCEMIA Stop: 07/06/18 17:07 Insulin Detemir (Levemir) 36 unit SQ HS [facility] Stop: 04/14/18 21:01 Last Admin: 10/13/17 20:16 Dose: 36 unit Insulin Human Lispro (Humalog) 0 units SQ HS [facility] PRN Reason: Protocol Stop: 04/14/18 21:01 Last Admin: 10/13/17 20:12 Dose: 6 units Insulin Human Lispro (Humalog) 0 units SQ TIDAC [facility] PRN Reason: Protocol Stop: 04/14/18 17:14 Last Admin: 10/13/17 18:04 Dose: 4 units Isosorbide Mononitrate (Imdur) 60 mg PO DAILY [facility] Stop: 04/15/18 09:01 Levalbuterol HCl (Xopenex) 1 puff IH BIDR [facility] Stop: 04/14/18 21:01 Last Admin: 10/13/17 22:20 Dose: 1 puff Lorazepam (Ativan) 0.5 mg PO HS [facility] Stop: 04/14/18 21:01 Last Admin: 10/13/17 20:13 Dose: 0.5 mg Meclizine HCl (Antivert) 12.5 mg PO BID [facility] Stop: 04/14/18 21:01 Last Admin: 10/13/17 20:13 Dose: 12.5 mg Methylprednisolone (Solu-Medrol) 40 mg IVP Q8HR [facility] Stop: 04/14/18 16:01 Last Admin: 10/14/17 00:27 Dose: 40 mg Metoprolol Tartrate (Lopressor) 12.5 mg PO BID [facility] Stop: 04/14/18 21:01 Last Admin: 10/13/17 20:13 Dose: 12.5 mg Naloxone HCl (Narcan) 0.4 mg IVP Q2MIN PRN PRN Reason: Opioid Reversal Stop: 04/14/18 14:46 Nicotine (Nicoderm) 14 mg TD DAILY [facility] PRN Reason: Protocol Stop: 04/14/18 16:31 Last Admin: 10/13/17 18:04 Dose: 14 mg Nitroglycerin (Nitroglycerin) 0.4 mg SL Q5MIN PRN PRN Reason: CHEST PAIN Stop: 04/14/18 14:54 Last Admin: 10/13/17 20:03 Dose: 0.4 mg Potassium Chloride (Potassium Chloride) 10 meq PO DAILY [facility] Stop: 04/15/18 09:01 Prochlorperazine Maleate (Compazine) 10 mg PO Q8HR PRN PRN Reason: Nausea Stop: 04/14/18 14:54 Promethazine HCl (Phenergan) 12.5 mg IVP Q6HR PRN PRN Reason: Nausea And Vomiting Stop: 04/14/18 14:46 Quetiapine Fumarate (Seroquel) 300 mg PO HS SD Stop: 04/14/18 21:01 Last Admin: 10/13/17 20:13 Dose: 300 mg Tiotropium [place] (Spiriva) 18 mcg IH DAILY [place] Stop: 04/15/18 09:01 Warfarin Sodium (Coumadin Perpt) 1 each PO DAILY@1800 PRN PRN Reason: SEE COMMENTS Stop: 04/14/18 18:01 - Imaging and Cardiology Stress Test: report reviewed Echo: report reviewed Cardiac cath: report reviewed - EKG Interpretation EKG results cardiology: personally reviewed (Sinus rhythm with left bundle branch block-- Baseline ECG), sinus rhythm, left bundle branch block, other ( Currently sinus rhythm in the 80s on telemetry, no A. fib noted) Consult Discharge Plan - Plan Referrals: Maurisio Ward MD [Primary Care Provider] -
--- NOTE | 2017-10-14 09:58 | Internal Med Progress Note ---
Date of Encounter: 10/14/17 Time of Encounter: 09:33 - Assessment and plan (1) CAD (coronary artery disease) Current Visit: No Status: Chronic Assessment and plan: per hx. 01/2016 C at [facility] with 30-40% lesion to pLAD, no intervention required. Hospitalized 06/2017 for complaints of chest pain. Repeat TTE with EF 55%, atypical septal motion consistent with LBBB be. She was evaluated by cardiology at that time who recommended medical management and isosorbide added. Patient reports medication compliance and has followed up with cardiology since that admission. Now with recurrent chest pain that occurs with rest with associated palpitations. Serial troponins negative, EKG without acute ST changes. Cont home ASA, coumadin, statin, BB. Consult Cardiology Qualifiers: Coronary Disease-Associated Artery/Lesion type: [place] artery [place] vs. transplanted heart: [place] heart Associated angina: with stable angina Qualified Code(s): I25.118 - Atherosclerotic heart disease of [place] coronary artery with other forms of angina pectoris (2) PAF (paroxysmal atrial fibrillation) Current Visit: No Status: Chronic Assessment and plan: per hx with loop recorder. Rate controlled. Symptomatic with palpitations. Continue home CCB, Coumadin. Cardiology planing on loop interrogation. (3) COPD (chronic obstructive pulmonary disease) Current Visit: No Status: Chronic Assessment and plan: per hx. recently started on ATB outpatient for suspected exacerbation. Continues to have productive cough, no wheezing. WBC 16K, likely secondary to steroids. Does not appear toxic or acute, no tachycardia or hypertension. Continue azithromycin, de-escalate steroids to PO. Qualifiers: Chronic bronchitis type: unspecified Qualified Code(s): J42 - Unspecified chronic bronchitis (4) CVA (cerebral vascular accident) Current Visit: No Status: Chronic Assessment and plan: per hx. no residual deficits. Neurologically intact. Continue home ASA, Coumadin, BB, statin. Qualifiers: CVA mechanism: unspecified Qualified Code(s): I63.9 - Cerebral infarction, unspecified (5) Diabetes mellitus type 2 in obese Current Visit: Yes Status: Chronic Assessment and plan: per hx. Hgb A1c 6%. Blood sugars elevated secondary to steroids. Cont long- acting, SSI. Monitor blood sugar and titrate PRN (6) Subclinical hyperthyroidism Current Visit: Yes Status: Acute Assessment and plan: suspected. TSH 0.2. T3, T4 pending. (7) DVT prophylaxis Current Visit: Yes Status: Acute Assessment and plan: coumadin - Subjective Interval history: Seen and examined at bedside. Patient is known to me from previous admission. Information obtained from chart review and patient report. Patient reports chest pain started 2 days ago with associated palpitations. She described chest pain as a pressure that radiated to the left neck. Symptoms come and go no alleviating or aggravating factors. She was seen by cardiology 06/2017 and isosorbide added at that time which she has been compliant with. Currently no chest pain or shortness of breath. No palpitations. Discussed cardiology consultation with her and she is agreeable to left heart catheter if needed. - Constitutional Vitals: Temp Pulse Resp BP Pulse Ox 98.5 F 81 16 135/84 97 10/14/17 07:31 10/14/17 07:31 10/14/17 07:31 10/14/17 07:31 10/14/17 07:31 General appearance: Present: cooperative, A&O X 3, morbidly obese, pleasant, answers questions appropriately - Head Head exam: Present: atraumatic, normocephalic - Eye Eye exam: Present: PERRL, conjuntiva pink, sclera anicteric Pupils: Present: PERRL - Neck Neck exam general surgery: Present: supple, trachea midline. Absent: lymphadenopathy - Respiratory Respiratory exam: Present: CTAB. Absent: accessory muscle use, rales, rhonchi, wheezes - Cardiovascular Cardiovascular exam: Present: RRR, +S1, +S2. Absent: diastolic murmur, gallop, rubs, systolic murmur - GI/Abdominal GI/Abdominal exam: Present: normal bowel sounds, soft, no peritoneal signs. Absent: distended, tenderness - Extremities Exam Extremities exam: Present: warm, radial pulses palpable and symmetrical. Absent : calf tenderness, cyanotic, pedal edema - Neurological Exam Neurological exam: Present: CN II-XII intact, oriented X3, no focal deficits. Absent: pronater drift, facial droop, speech deficit - Skin Skin exam: Present: dry, intact Internal Medicine: Result - Labs CBC & Chem 7: 10/14/17 04:01 10/14/17 04:01 Labs: Short CBC 10/14/17 Range/Units 04:01 WBC 16.8 H (4.3-11.1) K/mcL Hgb 13.2 (11.5-15.4) g/dL Hct 41.1 (35.3-44.9) % Plt Count 233 (140-400) K/mcL Neutrophils # 14.8 H (1.6-8.9) K/mcL BMP 10/14/17 04:01 Sodium 138 Potassium 3.6 Chloride 100 Carbon Dioxide 27 BUN 21 H Creatinine 0.77 Glucose 185 H Calcium 9.1 Cardiac Enzymes 10/13/17 10/13/17 10/14/17 Range/Units 17:13 23:07 04:01 Troponin I < 0.03 < 0.03 < 0.03 (< 0.04) ng/mL Liver Function 10/14/17 Range/Units 04:01 Total Bilirubin 0.3 (0.3-1.0) mg/dL AST 14 (13-39) Units/L ALT 31 (7-52) Units/L Alkaline Phosphatase 101 (34-104) Units/L Albumin 4.0 (3.5-5.7) g/dL - ABG Interpretation ABG results: PT/INR, D-dimer PT 12.5 Seconds (9.4-12.1) H 10/13/17 11:13 D-Dimer < 215 ng/mLFEU (0-500) 10/13/17 11:13 Consult Discharge Plan - Plan Referrals: Maurisio Ward MD [Primary Care Provider] -
[2017-10-14] MEDS: Tiotropium 18 MCG inhalation IH SCH (09:59)
[2017-10-14] MEDS: Levalbuterol 1 PUFF INHALER IH SCH ×2 (10:00→22:20)
[2017-10-14] MEDS: Budesonide/Formoterol 160/4.5 MDI IH SCH ×2 (10:01→22:20)
[2017-10-14] MEDS: Nicotine 14 MG PATCH.TD24 TD SCH (10:25)
[2017-10-14] MEDS: Insulin LISPRO 300 UNITS/3 ML VIAL SQ SCH ×4 (10:27→20:16)
[2017-10-14] MEDS: Furosemide 40 MG/4 ML VIAL IVP SCH (10:28)
[2017-10-14] MEDS: FLUoxetine 20 MG CAPSULE PO SCH ×2 (10:30→20:12)
[2017-10-14] MEDS: Famotidine 20 MG TABLET PO SCH ×2 (10:30→20:12)
[2017-10-14] MEDS: hydrOXYzine pamoate 25 MG CAPSULE PO SCH ×3 (10:30→20:10)
[2017-10-14] MEDS: Gabapentin 400 MG CAPSULE PO SCH ×3 (10:31→20:14)
[2017-10-14] MEDS: Aspirin 81 MG TAB.CHEW PO SCH (10:31)
[2017-10-14] MEDS ORDERED: Diltiazem CD (24hr) 120 MG CAPSULE PO ONE (10:45)
--- NOTE | 2017-10-14 11:55 | Event Note ---
Date of Encounter: 10/14/17 Time of Encounter: 11:45 - Cardiology Event Note Loop recorder interrogation completed, 5 episodes of tachycardia noted August and September since last check. Reviewed and discussed with Dr. Betancur, no A. fib noted. Patient agreeable to increased dose of calcium channel lizzette and titration of long-acting nitrate and follow-up in outpatient setting as scheduled on Tuesday with primary bricklayer supervisor Dr. Gregory. Dr. Gregory aware plan as well. Discussed with primary service. Cardiology will sign off, reconsult as needed. All questions answered and patient verbalized understanding and agreed with plan.
--- NOTE | 2017-10-14 12:02 | Electrocardiograph Report ---
[facility] Test Date: 2017-10-13 Pat Name: Aliza Strong Department: 102 Room: [facility] Gender: F Professional Driver: : 1965 Requested By: Paulo Santamaria Order Number: [id number] Ada MD: Luis Lee MD Measurements Intervals [place] Rate: 78 P: 63 [place]: 169 QRS: 3 QRSD: 142 T: 69 QT: 442 QTc: 476 Interpretive Statements SINUS RHYTHM LEFT BUNDLE BRANCH BLOCK [120+ ms QRS DURATION, 80+ ms Q/S IN V1/V2, 85+ ms R IN I/aVL/V5/V6] Electronically Signed On 10-14-2017 12:00:30 EST by Luis Lee MD
[2017-10-14] MEDS: Nitroglycerin 0.4 MG TAB.SUBL SL PRN ×6 (12:36→16:01)
[2017-10-14 13:45] LABS: INR 1.4; Prothrombin Time 15.2 Seconds (9.4-12.1)
--- NOTE | 2017-10-14 14:03 | Event Note ---
Date of Encounter: 10/14/17 Time of Encounter: 14:00 - Cardiology Event Note Patient here for COPD exacerbation and has ruled out for NE but continues having chest discomfort. Mildly abnormal low risk stress in 2017. Around that time had CVA requiring tpa (2/2 AF). Plan on [facility] Tuesday, hold coumadin and bridge with heparin.
[2017-10-14] MEDS ORDERED: *HR* Heparin 5,000 UNIT/ML VIAL IVP ONE (14:05)
[2017-10-14] MEDS ORDERED: *HR* Heparin 5,000 UNIT/ML VIAL IVP PRN (14:05)
[2017-10-14] MEDS ORDERED: Acetaminophen/Butalbital/CaffeineTABLET PO ONE (14:11)
[2017-10-14 14:32] LABS: Activated Partial Thrombo Time 25.3 Seconds (26.0-36.0)
[2017-10-14] MEDS: Heparin 25,000 UNIT/500 ML D5W 25,000 UNIT/500 ML BAG IVC SCH (15:51)
[2017-10-14] MEDS ORDERED: *HR* Warfarin 3 MG TABLET PO ONE (18:00)
[2017-10-14] MEDS: *HR* Morphine 2 MG/ML SYRINGE IVP PRN (19:04)
--- NOTE | 2017-10-14 19:17 | Electrocardiograph Report ---
[address] [address] Test Date: 2017-10-13 Pat Name: Aliza Strong Department: 102 Room: [facility] Gender: F Senior Controller: [place] : 1965 Requested By: Paulo Santamaria Order Number: [id number] Reading MD: Jonny Betancur MD Measurements Intervals [place] Rate: 78 P: 52 [place]: 167 QRS: 7 QRSD: 142 T: 72 QT: 453 QTc: 486 Interpretive Statements SINUS RHYTHM LEFT BUNDLE BRANCH BLOCK Electronically Signed On 10-14-2017 19:16:36 EST by Jonny Betancur MD
--- NOTE | 2017-10-14 19:35 | Electrocardiograph Report ---
[address] [place], [place] [address] Test Date: 2017-10-13 Pat Name: Aliza Strong Department: 114 Room: [facility] Gender: F Filter Press Tender Head: : 1965 Requested By: Marques Benson Order Number: [id number] Reading MD: Jonny Betancur MD Measurements Intervals [place] Rate: 81 P: 61 MT: 165 QRS: 23 QRSD: 140 T: 88 QT: 438 QTc: 475 Interpretive Statements SINUS RHYTHM WITH OCCASIONAL VENTRICULAR PREMATURE COMPLEXES LEFT BUNDLE BRANCH BLOCK Electronically Signed On 10-14-2017 19:33:29 EST by Jonny Betancur MD
[2017-10-14] MEDS: Metoprolol XL (24 HR) Succ 25 MG TAB.ER.24H PO SCH (20:10)
[2017-10-14] MEDS: *HR* LORazepam 0.5 MG TABLET PO SCH (20:11)
[2017-10-14] MEDS: Insulin DETEMIR 100 UNIT/ML X5UNITS SQ SCH (20:14)
[2017-10-14 22:17] LABS: Activated Partial Thrombo Time 136.9 Seconds (26.0-36.0)
[2017-10-14 22:46] LABS: Heparin anti-factor XA UFH 1.28 IU/mL (0.30-0.70)
[2017-10-15] MEDS: *HR* Morphine 2 MG/ML SYRINGE IVP PRN ×4 (00:52→13:55)
[2017-10-15] MEDS: Ipratropium/Albuterol Neb 3 ML IH SCH ×4 (03:38→21:20)
[2017-10-15 06:28] LABS: INR 1.3; Prothrombin Time 14.4 Seconds (9.4-12.1)
[2017-10-15 06:39] LABS: Alanine Aminotransferase 30 Units/L (7-52); Albumin 3.5 g/dL (3.5-5.7); Albumin/Globulin Ratio 1.6 (1.1-2.2); Alkaline Phosphatase 86 Units/L (34-104); Aspartate Amino Transferase 17 Units/L (13-39); BUN/Creatinine Ratio 35 (6-26); Bilirubin,Total 0.3 mg/dL (0.3-1.0); Blood Urea Nitrogen 24 mg/dL (6-20); Calcium 8.4 mg/dL (8.6-10.3); Carbon Dioxide 27 mEq/L (23-29); Chloride 104 mEq/L (98-107); Globulin 2.2 g/dL (2.4-3.5); Glucose 150 mg/dL (70-105); Osmolality,Calculated 297 (280-300); Potassium 3.9 mEq/L (3.5-5.1); Sodium 140 mEq/L (136-145); Total Protein 5.7 g/dL (6.4-8.9); eGFR For African Americans > 60 (> 60); eGFR For Non-African Americans > 60 (> 60)
[2017-10-15 06:47] LABS: Basophils % 0.3 %; Eosinophils % 0.3 %; Hematocrit 37.5 % (35.3-44.9); Immature Granulocytes % 1.8 % (0-4); Lymphocytes # 2.8 K/mcL (0.6-4.6); Lymphocytes % 23.6 %; Mean Corpuscular Hemoglobin 28.8 pg (28.0-33.3); Mean Corpuscular Volume 89.9 fL (83.0-100.0); Mean Platelet Volume 9.8 fL (9.4-12.4); Monocytes # 0.8 K/mcL (0.0-1.3); Monocytes % 6.9 %; Neutrophils # 7.9 K/mcL (1.6-8.9); Platelet Count 195 K/mcL (140-400); Red Blood Count 4.17 M/mcL (3.82-4.97); Red Cell Distribution Width 14.4 % (11.5-14.5); Segmented Neutrophils % 67.1 %
[2017-10-15 07:11] LABS: Triiodothyronine (T3) Free 3.31 pg/mL (2.50-3.90)
[2017-10-15 07:16] LABS: Triiodothyronine (T3) Total 0.76 ng/mL (0.87-1.78)
[2017-10-15] MEDS ORDERED: Isosorbide MONOnitrate (24 HR) 30 MG TAB.ER.24H PO SCH (09:00)
[2017-10-15] MEDS ORDERED: Metoprolol XL (24 HR) Succ 25 MG TAB.ER.24H PO SCH (09:00)
[2017-10-15] MEDS: Insulin LISPRO 300 UNITS/3 ML VIAL SQ SCH ×4 (09:20→21:59)
[2017-10-15] MEDS: Nicotine 14 MG PATCH.TD24 TD SCH (09:20)
[2017-10-15] MEDS: Famotidine 20 MG TABLET PO SCH ×2 (09:20→23:29)
[2017-10-15] MEDS: predniSONE 20 MG TABLET PO SCH (09:21)
[2017-10-15] MEDS: Metoprolol XL (24 HR) Succ 25 MG TAB.ER.24H PO SCH ×2 (09:21→23:29)
[2017-10-15] MEDS: Azithromycin 250 MG TABLET PO SCH (09:21)
[2017-10-15] MEDS: FLUoxetine 20 MG CAPSULE PO SCH ×2 (09:21→23:29)
[2017-10-15] MEDS: hydrOXYzine pamoate 25 MG CAPSULE PO SCH ×3 (09:22→23:28)
[2017-10-15] MEDS: Aspirin 81 MG TAB.CHEW PO SCH (09:22)
[2017-10-15] MEDS: Gabapentin 400 MG CAPSULE PO SCH ×3 (09:22→23:29)
[2017-10-15] MEDS: Furosemide 20 MG TABLET PO SCH (09:22)
[2017-10-15] MEDS: Diltiazem CD (24hr) 120 MG CAPSULE PO SCH (09:22)
[2017-10-15] MEDS: Tiotropium 18 MCG inhalation IH SCH (10:44)
[2017-10-15] MEDS: Budesonide/Formoterol 160/4.5 MDI IH SCH ×2 (10:44→21:20)
--- NOTE | 2017-10-15 13:32 | Cardiology Progress Note ---
Date of Encounter: 10/15/17 Time of Encounter: 11:05 Assessment and Plan (1) Abnormal stress test Current Visit: No Status: Chronic Per Cardiology: Recent stress test June 2017 showed small size, very mild intensity perfusion defect involving the apex during stress with gated EF 43%. Due to recent CVA with TPA at that tome medical management was recommended. EF currently on echo August 2017 55-60% with NSWMA. Due to recurrent chest pain despite medical therapy we are planning to proceed with [facility] tuesday. On heparin bridge for coumadin due to CVA history. (2) CAD (coronary artery disease) Current Visit: Yes Status: Chronic Per Cardiology: Troponins negative 4. Prior to event, has not been utilizing nitroglycerin glycerin pills. Last catheterization at [facility] January 2016 which showed proximal LAD 30-40% in-stent restenosis, proximal RCA 30% lesion. Patient also noted to have small diagonal 1 branch ostial 60% lesion being medically managed. Has previously failed Ranexa therapy due to ineffectiveness. Currently on Imdur 60mg PO daily, will increase. On long-acting nitrate, statin, beta lizzette, on asa. LHC tuesday to re-evaluate. Qualifiers: Coronary Disease-Associated Artery/Lesion type: [place] artery [place] vs. transplanted heart: [place] heart Associated angina: without angina Qualified Code(s): I25.10 - Atherosclerotic heart disease of [place] coronary artery without angina pectoris (3) PAF (paroxysmal atrial fibrillation) Current Visit: No Status: Chronic Per Cardiology: Known history of paroxysmal atrial fibrillation. Loop recorder showed high atrial rates at times. Cardizem was increased and toprol continued. No tachycardia seen overnight. Telemetry review shows NSR with occasional PVC. (4) Afib Current Visit: No Status: Chronic Qualifiers: Atrial fibrillation type: unspecified Qualified Code(s): I48.91 - Unspecified atrial fibrillation Discussion w patient/family: The assessment and plan as outlined above was discussed with the patient and/or family members who expressed understanding and agreement. All questions were answered. Thank you for involving us in the care of your patient. Please call with any questions. Subjective Principal diagnosis: PAlpitations Interval history: Ms. Strong c/o intermittent chest pain associated with palpitations through the night. Awaiting possible [facility] tuesday. Objective Vital Signs, Last 4 Hours Temp Pulse Resp BP Pulse Ox 10/15/17 10:47 18 98 01/06/18 09:56 98.5 F 71 16 134/73 98 General: Conversant, No Apparent Distress HEENT: Atraumatic, Normocephaly, Mucus Membranes Moist Neck: No JVD, Normal carotid pulses Cardiac: Reg Rate and Rhythm, Normal S1 and S2, No Murmur Lungs: Normal Breath Sounds, No Wheeze, Rales, Rhonchi Neuro: Alert and responsive, No focal deficits noted Abdomen: Soft, Non-Tender Skin: No rashes noted on visualized skin Musculoskeletal: No Chest Wall Tenderness Extremities: No Clubbing, No Cyanosis, No Edema, Normal Pulses Results 10/15/17 06:00 10/15/17 06:00 Lab Results 10/14/17 10/14/17 10/14/17 13:25 13:25 21:41 WBC Hgb Hct Plt Count INR 1.4 APTT 25.3 L 136.9 H* D Sodium Potassium Chloride Carbon Dioxide BUN Creatinine Glucose Calcium Total Bilirubin AST ALT Alkaline Phosphatase Troponin I < 0.03 10/14/17 10/15/17 10/15/17 23:48 06:00 06:00 WBC 11.7 H Hgb 12.0 Hct 37.5 Plt Count 195 INR APTT 47.7 H D Sodium 140 Potassium 3.9 Chloride 104 Carbon Dioxide 27 BUN 24 H Creatinine 0.69 Glucose 150 H Calcium 8.4 L Total Bilirubin 0.3 AST 17 ALT 30 Alkaline Phosphatase 86 Troponin I 10/15/17 10/15/17 06:00 12:02 WBC Hgb Hct Plt Count INR 1.3 APTT 55.0 H 57.5 H Sodium Potassium Chloride Carbon Dioxide BUN Creatinine Glucose Calcium Total Bilirubin AST ALT Alkaline Phosphatase Troponin I - Imaging and Cardiology Stress Test: report reviewed Echo: report reviewed - VTE Documentation of Mechanical Device: Venous foot pump, device Consult Discharge Plan - Plan Referrals: Maurisio Ward MD [Primary Care Provider] -
[2017-10-15] MEDS: Heparin 25,000 UNIT/500 ML D5W 25,000 UNIT/500 ML BAG IVC SCH (15:02)
--- NOTE | 2017-10-15 17:28 | Internal Med Progress Note ---
Date of Encounter: 10/15/17 Time of Encounter: 17:26 - Assessment and plan (1) Chest pain Current Visit: No Status: Resolved Assessment and plan: Plan for [facility]. Qualifiers: Chest pain type: unspecified Qualified Code(s): R07.9 - Chest pain, unspecified (2) COPD exacerbation Current Visit: Yes Status: Acute Assessment and plan: Azithromycin Prednisone 5 day burst (3) CAD (coronary artery disease) Current Visit: No Status: Chronic Assessment and plan: per hx. 01/2016 LHC at [facility] with 30-40% lesion to pLAD, no intervention required. Hospitalized 06/2017 for complaints of chest pain. Repeat TTE with EF 55%, atypical septal motion consistent with LBBB be. She was evaluated by cardiology at that time who recommended medical management and isosorbide added. Patient reports medication compliance and has followed up with cardiology since that admission. Now with recurrent chest pain that occurs with rest with associated palpitations. Serial troponins negative, EKG without acute ST changes. Cont home ASA, coumadin, statin, BB. Consult Cardiology Qualifiers: Coronary Disease-Associated Artery/Lesion type: [place] artery [place] vs. transplanted heart: [place] heart Associated angina: with stable angina Qualified Code(s): I25.118 - Atherosclerotic heart disease of [place] coronary artery with other forms of angina pectoris (4) COPD (chronic obstructive pulmonary disease) Current Visit: No Status: Chronic Assessment and plan: per hx. recently started on ATB outpatient for suspected exacerbation. Continues to have productive cough, no wheezing. WBC 16K, likely secondary to steroids. Does not appear toxic or acute, no tachycardia or hypertension. Continue azithromycin, de-escalate steroids to PO. Qualifiers: Chronic bronchitis type: unspecified Qualified Code(s): J42 - Unspecified chronic bronchitis (5) CVA (cerebral vascular accident) Current Visit: No Status: Chronic Assessment and plan: per hx. no residual deficits. Neurologically intact. Continue home ASA, Coumadin, BB, statin. Qualifiers: CVA mechanism: unspecified Qualified Code(s): I63.9 - Cerebral infarction, unspecified (6) Diabetes mellitus type 2 in obese Current Visit: Yes Status: Chronic Assessment and plan: per hx. Hgb A1c 6%. Blood sugars elevated secondary to steroids. Cont long- acting, SSI. Monitor blood sugar and titrate PRN (7) PAF (paroxysmal atrial fibrillation) Current Visit: No Status: Chronic Assessment and plan: per hx with loop recorder. Cardiology planing on loop interrogation. on heparin drip rate control with Toprol XL (8) DVT prophylaxis Current Visit: Yes Status: Acute Assessment and plan: on heparin drip - Subjective Interval history: Patient states she is not having pain now but did earlier today that was substernal and accompanied with fluttering. She rated it 8/10 currently 0/10. - Constitutional Vitals: Temp Pulse Resp BP Pulse Ox 98.5 F 71 18 134/73 98 10/15/17 09:56 10/15/17 09:56 10/15/17 10:47 10/15/17 09:56 10/15/17 10:47 General appearance: Present: cooperative, A&O X 3, morbidly obese, pleasant, answers questions appropriately - Head Head exam: Present: atraumatic, normocephalic - Eye Eye exam: Present: PERRL, conjuntiva pink, sclera anicteric Pupils: Present: PERRL - Neck Neck exam general surgery: Present: supple, trachea midline. Absent: lymphadenopathy - Respiratory Respiratory exam: Present: CTAB. Absent: accessory muscle use, rales, rhonchi, wheezes - Cardiovascular Cardiovascular exam: Present: RRR, +S1, +S2. Absent: diastolic murmur, gallop, rubs, systolic murmur - GI/Abdominal GI/Abdominal exam: Present: normal bowel sounds, soft, no peritoneal signs. Absent: distended, tenderness - Extremities Exam Extremities exam: Present: warm, radial pulses palpable and symmetrical. Absent : calf tenderness, cyanotic, pedal edema - Neurological Exam Neurological exam: Present: CN II-XII intact, oriented X3, no focal deficits. Absent: pronater drift, facial droop, speech deficit - Skin Skin exam: Present: dry, intact Internal Medicine: Result - Labs CBC & Chem 7: 10/15/17 06:00 10/15/17 06:00 Labs: Short CBC 10/15/17 Range/Units 06:00 WBC 11.7 H (4.3-11.1) K/mcL Hgb 12.0 (11.5-15.4) g/dL Hct 37.5 (35.3-44.9) % Plt Count 195 (140-400) K/mcL Neutrophils # 7.9 (1.6-8.9) K/mcL BMP 10/15/17 06:00 Sodium 140 Potassium 3.9 Chloride 104 Carbon Dioxide 27 BUN 24 H Creatinine 0.69 Glucose 150 H Calcium 8.4 L Liver Function 10/15/17 Range/Units 06:00 Total Bilirubin 0.3 (0.3-1.0) mg/dL AST 17 (13-39) Units/L ALT 30 (7-52) Units/L Alkaline Phosphatase 86 (34-104) Units/L Albumin 3.5 (3.5-5.7) g/dL - ABG Interpretation ABG results: PT/INR, D-dimer PT 14.4 Seconds (9.4-12.1) H 10/15/17 06:00 D-Dimer < 215 ng/mLFEU (0-500) 10/13/17 11:13 - VTE Documentation of Mechanical Device: Venous foot pump, device Consult Discharge Plan - Plan Referrals: Maurisio Ward MD [Primary Care Provider] -
[2017-10-15] MEDS: Levalbuterol 1 PUFF INHALER IH SCH ×2 (20:43→21:21)
--- NOTE | 2017-10-15 21:15 | Event Note ---
Date of Encounter: 10/15/17 Time of Encounter: 18:45 Notified by RN for patient slurred speech. Patient had left extremity weakness with slurred speech. Heparin drip stopped. Stroke alert called. Patient went had CT head without contrast. Preliminary read from [facility] called and informed me of negative results. Patient not good tpa candidate because of anticoagulant therapy. Discussed case with [facility] physician, and the Neurologist evaluated patient via Telestroke. Plan for patient to get CTA head/ neck. If negative, patient should be medically managed here at [facility]. If large thrombus found, patient should be transferred. This was signed out to night hospitalist team.
[2017-10-15] MEDS ORDERED: *HR* LORazepam 2 MG/ML VIAL IVP ONE (23:01)
[2017-10-15] MEDS: Insulin DETEMIR 100 UNIT/ML X5UNITS SQ SCH (23:17)
[2017-10-15] MEDS: 0.9 % Sodium Chloride 1,000 ML IVC SCH (23:17)
[2017-10-15] MEDS: *HR* LORazepam 0.5 MG TABLET PO SCH (23:28)
[2017-10-16] MEDS: Insulin LISPRO 300 UNITS/3 ML VIAL SQ SCH ×5 (00:12→21:04)
[2017-10-16] MEDS: Ipratropium/Albuterol Neb 3 ML IH SCH ×4 (03:29→22:38)
[2017-10-16 05:20] LABS: Basophils % 0.3 %; Eosinophils % 0.1 %; Hematocrit 36.8 % (35.3-44.9); Hemoglobin 11.9 g/dL (11.5-15.4); Lymphocytes # 2.4 K/mcL (0.6-4.6); Lymphocytes % 17.7 %; Mean Corpuscular HGB Conc 32.3 g/dL (31.6-35.5); Mean Corpuscular Hemoglobin 29.1 pg (28.0-33.3); Mean Platelet Volume 9.2 fL (9.4-12.4); Monocytes # 0.9 K/mcL (0.0-1.3); Monocytes % 6.4 %; Neutrophils # 10.1 K/mcL (1.6-8.9); Platelet Count 174 K/mcL (140-400); Red Blood Count 4.09 M/mcL (3.82-4.97); Segmented Neutrophils % 73.5 %
[2017-10-16 05:30] LABS: INR 1.1; Prothrombin Time 11.8 Seconds (9.4-12.1)
[2017-10-16 05:36] LABS: Alanine Aminotransferase 28 Units/L (7-52); Albumin 3.4 g/dL (3.5-5.7); Albumin/Globulin Ratio 1.4 (1.1-2.2); Alkaline Phosphatase 87 Units/L (34-104); Aspartate Amino Transferase 13 Units/L (13-39); BUN/Creatinine Ratio 27 (6-26); Bilirubin,Total 0.4 mg/dL (0.3-1.0); Blood Urea Nitrogen 17 mg/dL (6-20); Calcium 8.4 mg/dL (8.6-10.3); Carbon Dioxide 28 mEq/L (23-29); Chloride 105 mEq/L (98-107); Globulin 2.4 g/dL (2.4-3.5); Glucose 121 mg/dL (70-105); Osmolality,Calculated 287 (280-300); Potassium 4.3 mEq/L (3.5-5.1); Sodium 137 mEq/L (136-145); Total Protein 5.8 g/dL (6.4-8.9); eGFR For African Americans > 60 (> 60); eGFR For Non-African Americans > 60 (> 60)
[2017-10-16] MEDS: *HR* Morphine 2 MG/ML SYRINGE IVP PRN ×3 (08:55→19:57)
[2017-10-16] MEDS: 0.9 % Sodium Chloride 1,000 ML IVC SCH (09:03)
[2017-10-16] MEDS: Gabapentin 400 MG CAPSULE PO SCH ×3 (11:09→20:48)
[2017-10-16] MEDS: hydrOXYzine pamoate 25 MG CAPSULE PO SCH ×3 (11:09→20:48)
[2017-10-16] MEDS: *HR* Promethazine 25 MG/ML VIAL IVP PRN (11:11)
[2017-10-16] MEDS: Tiotropium 18 MCG inhalation IH SCH (11:17)
[2017-10-16] MEDS: Budesonide/Formoterol 160/4.5 MDI IH SCH ×2 (11:18→22:35)
[2017-10-16] MEDS: Levalbuterol 1 PUFF INHALER IH SCH ×2 (11:18→22:35)
--- NOTE | 2017-10-16 12:19 | Cardiology Progress Note ---
Date of Encounter: 10/16/17 Time of Encounter: 12:16 Assessment and Plan (1) Abnormal stress test Current Visit: No Status: Chronic Per Cardiology: Recent stress test June 2017 showed small size, very mild intensity perfusion defect involving the apex during stress with gated EF 43%. Due to recent CVA with TPA at that tome medical management was recommended. EF currently on echo August 2017 55-60% with NSWMA. Due to recurrent atypical chest pain despite medical therapy we discussed and planned for LHC this admission. Unfortunately, she developed acute CVA symptoms is pending further work-up. LHC is not recommended in the setting of acute CVA/ TIA. No urgent need for LHC. Troponin negative. 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 I will re- schedule her appointment with Dr. Gregory. Imdur increased. No significant chest pain overnight. Patient agrees with plan. (2) CAD (coronary artery disease) Current Visit: Yes Status: Chronic Per Cardiology: Troponins negative 4. Prior to event, has not been utilizing nitroglycerin glycerin pills. Last catheterization at [facility] January 2016 which showed proximal LAD 30-40% in-stent restenosis, proximal RCA 30% lesion. Patient also noted to have small diagonal 1 branch ostial 60% lesion being medically managed. Has previously failed Ranexa therapy due to ineffectiveness. Currently on Imdur 90 mg PO daily, will increase. On long-acting nitrate, statin, beta lizzette, on asa. Qualifiers: Coronary Disease-Associated Artery/Lesion type: [place] artery [place] vs. transplanted heart: [place] heart Associated angina: without angina Qualified Code(s): I25.10 - Atherosclerotic heart disease of [place] coronary artery without angina pectoris (3) PAF (paroxysmal atrial fibrillation) Current Visit: No Status: Chronic Per Cardiology: Known history of paroxysmal atrial fibrillation. Loop recorder showed high atrial rates at times. Cardizem was increased and toprol continued. No tachycardia seen in last 48 hours. Telemetry review shows NSR with occasional PVC. Ok to restart coumadin if ok from CVA/ neurology standpoint. Recommend neurology consult. Heparin bridge recommended until INR 2.0 due to history of CVA. (4) CVA (cerebral vascular accident) Current Visit: No Status: Chronic Symptoms concerning for CVA. Continues to have slow speech and left sided weakness. Symptoms started while patient was on heparin gtt. Primary team following. Recommend neurology consult to determine if it is ok to resume heparin gtt and coumadin in the setting of afib. Qualifiers: CVA mechanism: unspecified Qualified Code(s): I63.9 - Cerebral infarction, unspecified Discussion w patient/family: The assessment and plan as outlined above was discussed with the patient and/or family members who expressed understanding and agreement. All questions were answered. Thank you for involving us in the care of your patient. Please call with any questions. Subjective Principal diagnosis: Palpitations, CP Interval history: Ms. Strong c/o slurred speech, left sided numbness, and left sided tingling last night. Stroke alert was called and [facility] telemedicine was utilized. She was not a candidate for Tpa due to heparin gtt. CT/CTA negative for acute CVA. On my exam she continues to have slow slurred speech and left sided weakness. Reports h/o left sided wekness with revious stroke but weakness has increased. Objective Vital Signs, Last 4 Hours Temp Pulse Resp BP Pulse Ox 10/16/17 11:45 98.1 F 72 17 114/74 97 10/16/17 11:18 16 97 General: Conversant, No Apparent Distress HEENT: Atraumatic, Normocephaly, Mucus Membranes Moist Neck: No JVD, Normal carotid pulses Cardiac: Reg Rate and Rhythm, Normal S1 and S2, No Murmur Lungs: Normal Breath Sounds, No Wheeze, Rales, Rhonchi Neuro: Alert and responsive, Other (hand grasps greater on right. Foot push pulls greater on right. ) Abdomen: Soft, Non-Tender Skin: No rashes noted on visualized skin Musculoskeletal: No Chest Wall Tenderness Extremities: No Clubbing, No Cyanosis, No Edema, Normal Pulses Results 10/16/17 05:06 10/16/17 05:06 Lab Results 10/15/17 10/15/17 10/16/17 12:02 18:58 05:06 WBC 13.7 H Hgb 11.9 Hct 36.8 Plt Count 174 INR APTT 57.5 H 45.1 H Sodium Potassium Chloride Carbon Dioxide BUN Creatinine Glucose Calcium Total Bilirubin AST ALT Alkaline Phosphatase 10/16/17 10/16/17 05:06 05:06 WBC Hgb Hct Plt Count INR 1.1 APTT Sodium 137 Potassium 4.3 Chloride 105 Carbon Dioxide 28 BUN 17 Creatinine 0.64 Glucose 121 H Calcium 8.4 L Total Bilirubin 0.4 AST 13 ALT 28 Alkaline Phosphatase 87 - Imaging and Cardiology Echo: report reviewed - EKG Interpretation EKG results cardiology: personally reviewed - VTE Documentation of Mechanical Device: Venous foot pump, device Consult Discharge Plan - Plan Referrals: Maurisio Ward MD [Primary Care Provider] -
[2017-10-16] MEDS: predniSONE 20 MG TABLET PO SCH (12:31)
[2017-10-16] MEDS: Nicotine 14 MG PATCH.TD24 TD SCH (12:31)
[2017-10-16] MEDS: Famotidine 20 MG TABLET PO SCH ×2 (12:31→20:48)
[2017-10-16] MEDS: Diltiazem CD (24hr) 120 MG CAPSULE PO SCH (12:31)
[2017-10-16] MEDS: FLUoxetine 20 MG CAPSULE PO SCH ×2 (12:31→20:48)
[2017-10-16] MEDS: Aspirin 81 MG TAB.CHEW PO SCH (12:31)
[2017-10-16] MEDS: Furosemide 20 MG TABLET PO SCH (12:31)
[2017-10-16] MEDS: Metoprolol XL (24 HR) Succ 25 MG TAB.ER.24H PO SCH ×2 (12:32→20:48)
[2017-10-16] MEDS: Azithromycin 250 MG TABLET PO SCH (12:32)
--- NOTE | 2017-10-16 16:18 | Internal Med Progress Note ---
Date of Encounter: 10/16/17 Time of Encounter: 16:16 - Assessment and plan (1) Chest pain Current Visit: No Status: Resolved Assessment and plan: Due to recurrent chest pain there was plan for heart cath this Tuesday. However she developed signs/symptoms of TIA/CVA yesterday. Cardiology will hold from [facility] as not recommended in setting of acute CVA/TIA. Her Imdur dose was increased and she is having follow-up with Cardiology arranged. Qualifiers: Chest pain type: unspecified Qualified Code(s): R07.9 - Chest pain, unspecified (2) CVA (cerebral vascular accident) Current Visit: No Status: Acute Assessment and plan: 10/15/17: acute onset of facial droop with left sided weakness. CT head ruled out hemorragic stroke. MRI could not be done. Telemedicine with [facility] was utilized and no tpa administered bacause patient was on anticoagulation. Heparin drip was stopped. CTA of head and neck were negative - Follow-up repeat echocardiogram; evaluate for any new thrombus - Continue neurochecks Q4H - Neurology consulted recommendations appreciated. Question as to anticoagulant and/or antiplatelet therapies. Qualifiers: CVA mechanism: unspecified Qualified Code(s): I63.9 - Cerebral infarction, unspecified (3) COPD exacerbation Current Visit: Yes Status: Acute Assessment and plan: Azithromycin Prednisone 5 day burst (4) CAD (coronary artery disease) Current Visit: No Status: Chronic Assessment and plan: per hx. 01/2016 [facility] at [facility] with 30-40% lesion to pLAD, no intervention required. Hospitalized 06/2017 for complaints of chest pain. Repeat TTE with EF 55%, atypical septal motion consistent with LBBB be. She was evaluated by cardiology at that time who recommended medical management and isosorbide added. Patient reports medication compliance and has followed up with cardiology since that admission. Now with recurrent chest pain that occurs with rest with associated palpitations. Serial troponins negative, EKG without acute ST changes. Cont home ASA, coumadin, statin, BB. Consult Cardiology Qualifiers: Coronary Disease-Associated Artery/Lesion type: [place] artery [place] vs. transplanted heart: [place] heart Associated angina: with stable angina Qualified Code(s): I25.118 - Atherosclerotic heart disease of [place] coronary artery with other forms of angina pectoris (5) COPD (chronic obstructive pulmonary disease) Current Visit: No Status: Chronic Assessment and plan: per hx. recently started on ATB outpatient for suspected exacerbation. Continues to have productive cough, no wheezing. WBC 16K, likely secondary to steroids. Does not appear toxic or acute, no tachycardia or hypertension. Continue azithromycin, de-escalate steroids to PO. Qualifiers: COPD type: COPD with acute exacerbation Qualified Code(s): J44.1 - Chronic obstructive pulmonary disease with (acute) exacerbation (6) Diabetes mellitus type 2 in obese Current Visit: Yes Status: Chronic Assessment and plan: per hx. Hgb A1c 6%. Blood sugars elevated secondary to steroids. Cont long- acting, SSI. Monitor blood sugar and titrate PRN (7) PAF (paroxysmal atrial fibrillation) Current Visit: No Status: Chronic Assessment and plan: per hx with loop recorder. Cardiology planing on loop interrogation. on heparin drip rate control with Toprol XL (8) DVT prophylaxis Current Visit: Yes Status: Acute Assessment and plan: on heparin drip - Subjective Interval history: Patient has made gradual improvement with her strength and speech. She can now move her left hand and left leg against gravity. Speech improved but still slurring. She denies chest pain today. - Constitutional Vitals: Temp Pulse Resp BP Pulse Ox 98.1 F 72 17 114/74 97 10/16/17 11:45 10/16/17 11:45 10/16/17 11:45 10/16/17 11:45 10/16/17 11:45 General appearance: Present: cooperative, A&O X 3, morbidly obese, pleasant - Head Head exam: Present: atraumatic, normocephalic - Eye Eye exam: Present: PERRL, conjuntiva pink, sclera anicteric Pupils: Present: PERRL - Neck Neck exam general surgery: Present: supple, trachea midline. Absent: lymphadenopathy - Respiratory Respiratory exam: Present: CTAB. Absent: accessory muscle use, rales, rhonchi, wheezes - Cardiovascular Cardiovascular exam: Present: RRR, +S1, +S2. Absent: diastolic murmur, gallop, rubs, systolic murmur - GI/Abdominal GI/Abdominal exam: Present: normal bowel sounds, soft, no peritoneal signs. Absent: distended, tenderness - Extremities Exam Extremities exam: Present: warm, radial pulses palpable and symmetrical. Absent : calf tenderness, cyanotic, pedal edema - Neurological Exam Neurological exam: Present: motor sensory deficit (improved since yesterday), oriented X3, facial droop, speech deficit (improved since yesterday.). Absent: pronater drift Additional comments: Can now move left lower and upper limbs against gravity as compared to yesterday. Speech is more coherent but still slurring. - Skin Skin exam: Present: dry, intact Internal Medicine: Result - Labs CBC & Chem 7: 10/16/17 05:06 10/16/17 05:06 Labs: Short CBC 10/16/17 Range/Units 05:06 WBC 13.7 H (4.3-11.1) K/mcL Hgb 11.9 (11.5-15.4) g/dL Hct 36.8 (35.3-44.9) % Plt Count 174 (140-400) K/mcL Neutrophils # 10.1 H (1.6-8.9) K/mcL BMP 10/16/17 05:06 Sodium 137 Potassium 4.3 Chloride 105 Carbon Dioxide 28 BUN 17 Creatinine 0.64 Glucose 121 H Calcium 8.4 L Liver Function 10/16/17 Range/Units 05:06 Total Bilirubin 0.4 (0.3-1.0) mg/dL AST 13 (13-39) Units/L ALT 28 (7-52) Units/L Alkaline Phosphatase 87 (34-104) Units/L Albumin 3.4 L (3.5-5.7) g/dL - ABG Interpretation ABG results: PT/INR, D-dimer PT 11.8 Seconds (9.4-12.1) 10/16/17 05:06 D-Dimer < 215 ng/mLFEU (0-500) 10/13/17 11:13 - Impressions Impressions Head CT 10/15/17 18:50 IMPRESSION: No acute intracranial abnormality. Findings were discussed with Dr. Marques Benson at 7:23 pm on 10/15/2017. D/ / Humble Quiñones MD / Humble Quiñones MD Interpreting Provider: Humble Quiñones MD Head CTA 10/15/17 19:28 IMPRESSION: Unremarkable CTA of the neck. Lung apical findings as described Slightly limited CT angiogram of the head in the cavernous carotid segments due to venous contamination. Otherwise there is no focal significant narrowing. There is no discrete aneurysm. D/ / John Garibay / John Garibay Interpreting Provider: John Garibay Neck CTA 10/15/17 19:28 IMPRESSION: Unremarkable CTA of the neck. Lung apical findings as described Slightly limited CT angiogram of the head in the cavernous carotid segments due to venous contamination. Otherwise there is no focal significant narrowing. There is no discrete aneurysm. D/ / John Garibay / John Garibay Interpreting Provider: John Garibay - VTE Documentation of Mechanical Device: Venous foot pump, device Consult Discharge Plan - Plan Referrals: Maurisio Ward MD [Primary Care Provider] -
--- NOTE | 2017-10-16 17:12 | Neurology - Consult Note ---
Date of Encounter: 10/16/17 Time of Encounter: 17:09 Assessment and Plan (1) Acute cerebral infarction Current Visit: Yes Status: Acute This patient has multiple stroke risk factors including, hypertension, obesity, hyperlipidemia and atrial fib. It is possible that she may have experienced a small cardioembolic event or perhaps even a small lacunar infarct or even a small thromboembolic event involving the right cerebral hemisphere. She has improved however not back to her normal baseline. Ultimately from a neurologic perspective she will likely require long-term anticoagulation. Certainly heparin or Lovenox bridge to Coumadin would be appropriate. At this juncture I does not seem to be an obvious occlusive lesion. Aspirin 81 mg daily may also be added to the regimen. Might also recommend PT and OT assessment. Stroke protocol orders are also appropriate. Certainly statin therapy and appropriate management of her hypertension may decrease the risk for future events. We will reevaluate her your request. Case was discussed with the hospitalist. History of Present Illness HPI: Ms. Strong is a 52 year old female with a prior medical history of atrial fibrillation, hypertension, COPD, HLD, admitted secondary to chest pain. Yesterday evening she was watching television and states she felt "normal and the left side" she also experienced a headache as well. She experienced weakness of the left upper extremity and left lower extremity with paresthesias. She also experienced slurred speech. Stroke alert was called at that time and the patient was taken to the ED and the [facility] tele-stroke neck work was contacted. Ultimately determined that she was not a candidate for TPA because she had been on previous anticoagulation. Her INR was subtherapeutic upon admission. She had a stat CT of the head in the neck both of which were negative for any occlusions or acute infarct. CT scan of the head was negative for hemorrhage. She feels as though her left sided symptoms have improved but are not back to baseline. She is left-handed. She was on heparin at the time of the event for her cardiac condition. She is not a candidate for MRI because she has a loop monitor and a bladder stimulator. Past Med Surg Social Fam HX - Past Medical History Medical history: arthritis, asthma, atrial fibrillation, COPD, coronary artery disease, CVA, diabetes, GERD, hyperlipidemia, hypertension, migraine, myocardial infarction, peripheral artery disease, TIA, other Psychiatric history: anxiety, depression, prior suicide attempt, previous psychiatric hospitalization - Past Surgical History Surgical History: angioplasty/stent, appendectomy, cholecystectomy, knee replacement, other - Social History Smoking Status: Current every day smoker Packs per day: 1/2 - 1 PPD - States she is not willing to quit at this time Smokeless Tobacco Status: No Alcohol use: none Drug use: none - Family History Father History Unknown: Yes Race: Family Member Ethnicity: Non- Living Status: Age at : 23 Cause of : Accident Sister Race: Family Member Ethnicity: Non- Living Status: Still Living Hx Family Musculoskeletal Disorders: Yes (Chronic back pain) Grandfather Race: Family Member Ethnicity: Non- Living Status: Age at : 65 Cause of : LA Hx Family Cardiac Disorders: Yes ([place], CAD) Mother Race: Family Member Ethnicity: Non- Living Status: Age at : 56 Cause of : CHF Hx Family Cardiac Disorders: Yes (CHF) Hx Family Respiratory Disorders: Yes (COPD) Hx Family Cancer: No Hx Family GI Disorders: No Hx Family Endocrine Disorder: No Hx Family Neuromuscular Disorders: No Hx Family Neurologic Disorders: No Hx Family HEENT Disorders: No Hx Family Autoimmune Disorders: No Medications and Allergies Budesonide/Formoterol 160/4.5 [Symbicort 160/4.5] 2 puff IH BIDR 12/30/16 [ History] Insulin ASPART [NovoLOG] 2 - 10 unit SQ TIDWM PRN 12/30/16 [History] Insulin Glargine,Hum.rec.anlog [Lantus Solostar] 36 unit SQ HS 12/30/16 [History ] Levalbuterol Tartrate [Xopenex Hfa] 1 puff IH BID 12/30/16 [History] Nitroglycerin [Nitrostat] 0.4 mg SL Q5M PRN 12/30/16 [History] Ranitidine HCl [Acid Weatherization Technician] 150 mg PO BID 12/30/16 [History] Tiotropium [Spiriva] 18 mcg IH DAILY 12/30/16 [History] Calcium Polycarbophil [Fibercon] 625 mg PO DAILY 03/15/17 [History] Oxygen 2 l NS HS 03/15/17 [History] LORazepam [Ativan] 0.5 mg PO HS #30 tablet 06/13/17 [Rx] hydrOXYzine pamoate [HydrOXYzine Pamoate] 50 mg PO TID #90 06/20/17 [Rx] Atorvastatin [Lipitor] 40 mg PO HS 07/03/17 [History] Isosorbide MONOnitrate (24 HR) [Imdur] 60 mg PO DAILY 07/20/17 [History] Quetiapine Fumarate [Seroquel] 300 mg PO HS 07/20/17 [History] Warfarin [Coumadin] 3 mg PO SUMOWEFR 07/20/17 [History] Aspirin 81 mg PO DAILY #30 tab.chew 07/22/17 [Rx] Metoprolol [Lopressor] 12.5 mg PO BID #60 tablet 07/22/17 [Rx] Warfarin [Coumadin] 4.5 mg PO TUTHSA 08/15/17 [History] Diltiazem HCl [Diltiazem ER] 120 mg PO DAILY 08/29/17 [History] Gabapentin [Neurontin] 400 mg PO TID 08/29/17 [History] Meclizine [Antivert] 12.5 mg PO BID 08/29/17 [History] Buspirone HCl [Buspar] 10 mg PO BID 09/14/17 [History] Diclofenac Sodium [Voltaren] 75 mg PO BID 09/14/17 [History] FLUoxetine HCl [Prozac] 40 mg PO BID 09/14/17 [History] DiphenhydraMINE [Benadryl] 12.5 mg PO Q8HR #9 mls 09/16/17 [Rx] Azithromycin [Zithromax Tri-Jos] 500 mg PO DAILY 10/13/17 [History] Furosemide [Lasix] 20 - 40 mg PO DAILY 10/13/17 [History] Ipratropium/Albuterol Neb [Duoneb] 3 ml IH [id number] PRN 10/13/17 [History] Potassium Chloride [K-Tab ER] 10 meq PO DAILY 10/13/17 [History] Prochlorperazine Maleate [Compazine] 10 mg PO Q8HR PRN 10/13/17 [History] predniSONE [PredniSONE] See Taper PO DAILY 10/13/17 [History] 3 Allergy/AdvReac Type Severity Reaction Status Date / Time baclofen Allergy Itching Verified 09/25/17 18:02 ciprofloxacin [From Cipro] Allergy Hives Verified 09/25/17 18:02 latex Allergy Rash Verified 09/25/17 18:02 Penicillins Allergy Hives Verified 09/25/17 18:02 prednisone Allergy Itching Verified 09/25/17 18:02 sulfamethoxazole Allergy Hives Verified 09/25/17 18:02 [From Bactrim] trimethoprim [From Bactrim] Allergy Hives Verified 09/25/17 18:02 cefdinir AdvReac Vomiting Verified 09/25/17 18:02 Oxycodone AdvReac Hallucinati Verified 09/25/17 18:02 ng All Systems: A 10-system review of systems was performed and is negative for pertinent findings except as documented above in the HPI. Review of Systems: 10 point review of systems is consistent with the history of present illness, otherwise negative. Physical Examination - Vital Signs Vital Signs: Initial Vital Signs Temp Pulse Resp BP Pulse Ox 98.4 F 75 19 119/75 95 10/13/17 10:41 10/13/17 10:41 10/13/17 10:41 10/13/17 10:41 10/13/17 10:41 - Neurologic Motor examination - right side: 5/5: deltoids, biceps, triceps, tool grinder operator external, hip flexors, tibialis Anterior, quadriceps, toe extension (EHL), plantarflexion Motor examination - left side: 4/5: deltoids, biceps, triceps, tool grinder operator external, quadriceps , tibialis Anterior, toe extension (EHL), plantarflexion Detailed sensory examination: other (Hypoesthesia of the left arm and leg.) Reflex and gait examination: other (Reflexes are diminished throughout.) Mental Status Examination: awake, alert, oriented to person, oriented to place, oriented to time, follows commands appropriately, answers questions appropriately, no agnosia, no aphasia, no aproxia Cranial nerve examination: PERRL, EOMI, visual you intact, corneal reflexes brisk symmetrically, sensory to face intact, mastication intact, no facial asymmetry is present, no dysarthria, hearing is intact symmetrically, soft palate elevates bilaterally upon phonation, gag reflex intact, flexes SCM and trapezius muscles symmetrically with full power, tongue protrudes midline, no atrophy or facial fasiculations present Results - Laboratory Findings CBC and BMP: 10/16/17 05:06 10/16/17 05:06 Abnormal lab findings: Abnormal lab results WBC 13.7 K/mcL (4.3-11.1) H 10/16/17 05:06 MPV 9.2 fL (9.4-12.4) L 10/16/17 05:06 Neutrophils # 10.1 K/mcL (1.6-8.9) H 10/16/17 05:06 APTT 45.1 Seconds (26.0-36.0) H 10/15/17 18:58 Heparin Anti-Xa, Unfract 1.28 IU/mL (0.30-0.70) H* 10/14/17 21:41 BUN/Creatinine Ratio 27 (6-26) H 10/16/17 05:06 Glucose 121 mg/dL (70-105) H 10/16/17 05:06 POC Glucose 146 (58-89) H 10/16/17 11:48 Hemoglobin A1c 6.0 % (-5.6) H 10/14/17 04:01 Calcium 8.4 mg/dL (8.6-10.3) L 10/16/17 05:06 Serum Total Protein 5.8 g/dL (6.4-8.9) L 10/16/17 05:06 Albumin 3.4 g/dL (3.5-5.7) L 10/16/17 05:06 Triglycerides 179 mg/dL (< 150) H 10/14/17 04:01 Cholesterol 294 mg/dL (< 200) H 10/14/17 04:01 LDL Cholesterol, Calc 193 mg/dL (0-99) H 10/14/17 04:01 VLDL Cholesterol, Calc 36 mg/dL (< 31) H 10/14/17 04:01 HDL Cholesterol 65 mg/dL (40-59) H 10/14/17 04:01 TSH 0.230 mcIU/mL (0.340-5.600) L 10/14/17 04:01 Total T3 0.76 ng/mL (0.87-1.78) L 10/15/17 06:00 Consult Discharge Plan - Plan Referrals: Maurisio Ward MD [Primary Care Provider] -
[2017-10-16] MEDS ORDERED: Warfarin perPT PO PRN (18:00)
[2017-10-16] MEDS ORDERED: Perflutren Lipid Microsphere 1.3 ML in 0.9 % Sodium Chloride 8.7 ML IVP ONE (18:03)
[2017-10-16] MEDS ORDERED: Perflutren Lipid Microsphere 2 ML VIAL ONE (18:06)
[2017-10-16] MEDS: *HR* Warfarin 5 MG TABLET PO SCH (19:54)
[2017-10-16] MEDS: *HR* LORazepam 0.5 MG TABLET PO SCH (20:48)
[2017-10-16] MEDS: Insulin DETEMIR 100 UNIT/ML X5UNITS SQ SCH (20:49)
[2017-10-16] MEDS: Heparin 25,000 UNIT/500 ML D5W 25,000 UNIT/500 ML BAG IVC SCH (23:54)
[2017-10-17] MEDS: *HR* Heparin 5,000 UNIT/ML VIAL IVP PRN ×2 (00:29→16:14)
[2017-10-17] MEDS: Ipratropium/Albuterol Neb 3 ML IH SCH ×4 (04:23→21:26)
[2017-10-17 05:49] LABS: Basophils # 0.1 K/mcL (0.0-0.2); Basophils % 0.4 %; Eosinophils # 0.1 K/mcL (0.0-0.6); Eosinophils % 0.3 %; Hematocrit 37.5 % (35.3-44.9); Hemoglobin 12.1 g/dL (11.5-15.4); Immature Granulocytes % 3.7 % (0-4); Lymphocytes # 2.5 K/mcL (0.6-4.6); Lymphocytes % 17.5 %; Mean Corpuscular HGB Conc 32.3 g/dL (31.6-35.5); Mean Corpuscular Hemoglobin 29.2 pg (28.0-33.3); Mean Corpuscular Volume 90.4 fL (83.0-100.0); Mean Platelet Volume 9.3 fL (9.4-12.4); Monocytes # 0.7 K/mcL (0.0-1.3); Monocytes % 4.9 %; Neutrophils # 10.5 K/mcL (1.6-8.9); Platelet Count 174 K/mcL (140-400); Red Blood Count 4.15 M/mcL (3.82-4.97); Red Cell Distribution Width 14.1 % (11.5-14.5); Segmented Neutrophils % 73.2 %
[2017-10-17 05:55] LABS: INR 1.1; Prothrombin Time 11.9 Seconds (9.4-12.1)
[2017-10-17 06:14] LABS: Alanine Aminotransferase 24 Units/L (7-52); Albumin 3.3 g/dL (3.5-5.7); Albumin/Globulin Ratio 1.4 (1.1-2.2); Alkaline Phosphatase 92 Units/L (34-104); Aspartate Amino Transferase 11 Units/L (13-39); BUN/Creatinine Ratio 24 (6-26); Bilirubin,Total 0.3 mg/dL (0.3-1.0); Blood Urea Nitrogen 16 mg/dL (6-20); Calcium 8.6 mg/dL (8.6-10.3); Carbon Dioxide 24 mEq/L (23-29); Chloride 105 mEq/L (98-107); Globulin 2.4 g/dL (2.4-3.5); Glucose 238 mg/dL (70-105); Osmolality,Calculated 291 (280-300); Potassium 3.9 mEq/L (3.5-5.1); Sodium 136 mEq/L (136-145); Total Protein 5.7 g/dL (6.4-8.9); eGFR For African Americans > 60 (> 60); eGFR For Non-African Americans > 60 (> 60)
[2017-10-17 06:16] LABS: Activated Partial Thrombo Time 120.3 Seconds (26.0-36.0)
[2017-10-17 06:54] LABS: Heparin anti-factor XA UFH 1.11 IU/mL (0.30-0.70)
[2017-10-17] MEDS: *HR* Morphine 2 MG/ML SYRINGE IVP PRN ×4 (08:25→22:49)
[2017-10-17] MEDS: Insulin LISPRO 300 UNITS/3 ML VIAL SQ SCH ×4 (08:25→21:43)
[2017-10-17] MEDS: Nicotine 14 MG PATCH.TD24 TD SCH (09:01)
[2017-10-17] MEDS: Metoprolol XL (24 HR) Succ 25 MG TAB.ER.24H PO SCH ×2 (09:02→21:41)
[2017-10-17] MEDS: Diltiazem CD (24hr) 120 MG CAPSULE PO SCH (09:02)
[2017-10-17] MEDS: Isosorbide MONOnitrate (24 HR) 60 MG TAB.ER.24H PO SCH (09:02)
[2017-10-17] MEDS: Famotidine 20 MG TABLET PO SCH ×2 (09:02→21:41)
[2017-10-17] MEDS: Aspirin 81 MG TAB.CHEW PO SCH (09:03)
[2017-10-17] MEDS: Azithromycin 250 MG TABLET PO SCH (09:03)
[2017-10-17] MEDS: hydrOXYzine pamoate 25 MG CAPSULE PO SCH ×3 (09:03→21:42)
[2017-10-17] MEDS: FLUoxetine 20 MG CAPSULE PO SCH ×2 (09:03→21:41)
[2017-10-17] MEDS: Gabapentin 400 MG CAPSULE PO SCH ×3 (09:03→21:41)
[2017-10-17] MEDS: Furosemide 20 MG TABLET PO SCH (09:03)
[2017-10-17] MEDS: 0.9 % Sodium Chloride 1,000 ML IVC SCH (09:14)
--- NOTE | 2017-10-17 10:08 | Electrocardiograph Report ---
[place] [id number] Test Date: 2017-10-14 Pat Name: Aliza Strong Department: 114 Room: [facility] Gender: F Clod Puller: : 1965 Requested By: Vibha Hazel Order Number: [id number] Reading MD: Jonny Betancur MD Measurements Intervals [place] Rate: 85 P: 68 NV: 156 QRS: 5 QRSD: 146 T: 79 QT: 418 QTc: 460 Interpretive Statements SINUS RHYTHM WITH OCCASIONAL VENTRICULAR PREMATURE COMPLEXES LEFT BUNDLE BRANCH BLOCK Electronically Signed On 10-17-2017 10:06:32 EST by Jonny Betancur MD
[2017-10-17] MEDS: Budesonide/Formoterol 160/4.5 MDI IH SCH ×2 (10:31→21:26)
[2017-10-17] MEDS: Tiotropium 18 MCG inhalation IH SCH (10:32)
[2017-10-17] MEDS: Levalbuterol 1 PUFF INHALER IH SCH ×2 (10:33→21:27)
[2017-10-17] MEDS: predniSONE 20 MG TABLET PO SCH (11:19)
[2017-10-17] MEDS: *HR* Warfarin 5 MG TABLET PO SCH (17:17)
--- NOTE | 2017-10-17 18:25 | Internal Med Progress Note ---
Date of Encounter: 10/17/17 Time of Encounter: 18:22 - Assessment and plan (1) Chest pain Current Visit: No Status: Resolved Assessment and plan: Due to recurrent chest pain there was plan for heart cath. However she developed signs/symptoms of TIA/CVA yesterday. Cardiology will hold from [facility] as not recommended in setting of acute CVA/TIA. Her Imdur dose was increased and she is having follow-up with Cardiology arranged. Qualifiers: Chest pain type: unspecified Qualified Code(s): R07.9 - Chest pain, unspecified (2) CVA (cerebral vascular accident) Current Visit: No Status: Acute Assessment and plan: 10/15/17: acute onset of facial droop with left sided weakness. CT head ruled out hemorragic stroke. MRI could not be done. Telemedicine with [facility] was utilized and no tpa administered bacause patient was on anticoagulation. Heparin drip was stopped. CTA of head and neck were negative. Echocardiogram was negative for thrombus. - Continue neurochecks Q4H Patient on heparin drip to bridge to warfarin. Qualifiers: CVA mechanism: unspecified Qualified Code(s): I63.9 - Cerebral infarction, unspecified (3) COPD exacerbation Current Visit: Yes Status: Acute Assessment and plan: Azithromycin Prednisone 5 day burst (4) CAD (coronary artery disease) Current Visit: No Status: Chronic Assessment and plan: per hx. 01/2016 [facility] at [facility] with 30-40% lesion to pLAD, no intervention required. Hospitalized 06/2017 for complaints of chest pain. Repeat TTE with EF 55%, atypical septal motion consistent with LBBB be. She was evaluated by cardiology at that time who recommended medical management and isosorbide added. Patient reports medication compliance and has followed up with cardiology since that admission. Now with recurrent chest pain that occurs with rest with associated palpitations. Serial troponins negative, EKG without acute ST changes. Cont home ASA, coumadin, statin, BB. Consult Cardiology Qualifiers: Coronary Disease-Associated Artery/Lesion type: [place]o artery [place] vs. transplanted heart: campo heart Associated angina: with stable angina Qualified Code(s): I25.118 - Atherosclerotic heart disease of campo coronary artery with other forms of angina pectoris (5) COPD (chronic obstructive pulmonary disease) Current Visit: No Status: Chronic Assessment and plan: per hx. recently started on ATB outpatient for suspected exacerbation. Continues to have productive cough, no wheezing. WBC 16K, likely secondary to steroids. Does not appear toxic or acute, no tachycardia or hypertension. Continue azithromycin, de-escalate steroids to PO. Qualifiers: COPD type: COPD with acute exacerbation Qualified Code(s): J44.1 - Chronic obstructive pulmonary disease with (acute) exacerbation (6) Diabetes mellitus type 2 in obese Current Visit: Yes Status: Chronic Assessment and plan: per hx. Hgb A1c 6%. Blood sugars elevated secondary to steroids. Cont long- acting, SSI. Monitor blood sugar and titrate PRN (7) PAF (paroxysmal atrial fibrillation) Current Visit: No Status: Chronic Assessment and plan: per hx with loop recorder. Cardiology planing on loop interrogation. on heparin drip rate control with Toprol XL (8) DVT prophylaxis Current Visit: Yes Status: Acute Assessment and plan: on heparin drip - Subjective Interval history: Patient has made gradual improvement with her strength and speech. She can now move her left hand and left leg against gravity. Speech improved but still slurring. She denies chest pain today. - Constitutional Vitals: Temp Pulse Resp BP Pulse Ox 97.7 F 76 16 117/83 95 10/17/17 09:57 10/17/17 09:57 10/17/17 15:56 10/17/17 09:57 10/17/17 15:56 General appearance: Present: cooperative, A&O X 3, morbidly obese, pleasant Exam: - Head Head exam: Present: atraumatic, normocephalic - Eye Eye exam: Present: PERRL, conjuntiva pink, sclera anicteric Pupils: Present: PERRL - Neck Neck exam general surgery: Present: supple, trachea midline. Absent: lymphadenopathy - Respiratory Respiratory exam: Present: CTAB. Absent: accessory muscle use, rales, rhonchi, wheezes - Cardiovascular Cardiovascular exam: Present: RRR, +S1, +S2. Absent: diastolic murmur, gallop, rubs, systolic murmur - GI/Abdominal GI/Abdominal exam: Present: normal bowel sounds, soft, no peritoneal signs. Absent: distended, tenderness - Extremities Exam Extremities exam: Present: warm, radial pulses palpable and symmetrical. Absent : calf tenderness, cyanotic, pedal edema - Neurological Exam Neurological exam: Present: motor sensory deficit (improved since yesterday), oriented X3, facial droop, speech deficit (improved since yesterday.). Absent: pronater drift Additional comments: Can now move left lower and upper limbs against gravity as compared to yesterday. Speech is more coherent but still slurring. Internal Medicine: Result - Labs CBC & Chem 7: 10/17/17 05:35 10/17/17 05:35 Labs: Short CBC 10/17/17 Range/Units 05:35 WBC 14.4 H (4.3-11.1) K/mcL Hgb 12.1 (11.5-15.4) g/dL Hct 37.5 (35.3-44.9) % Plt Count 174 (140-400) K/mcL Neutrophils # 10.5 H (1.6-8.9) K/mcL BMP 10/17/17 05:35 Sodium 136 Potassium 3.9 Chloride 105 Carbon Dioxide 24 BUN 16 Creatinine 0.68 Glucose 238 H Calcium 8.6 Liver Function 10/17/17 Range/Units 05:35 Total Bilirubin 0.3 (0.3-1.0) mg/dL AST 11 L (13-39) Units/L ALT 24 (7-52) Units/L Alkaline Phosphatase 92 (34-104) Units/L Albumin 3.3 L (3.5-5.7) g/dL - ABG Interpretation ABG results: PT/INR, D-dimer PT 11.9 Seconds (9.4-12.1) 10/17/17 05:35 D-Dimer < 215 ng/mLFEU (0-500) 10/13/17 11:13 - Impressions Impressions Echocardiogram 10/16/17 09:22 Impressions: LVEF 55%. Moderate left ventricular diastolic dysfunction. There is no LV thrombus. Atypical septal motion consistent with bundle branch block. Normal right ventricular structure and function. Mild mitral regurgitation. Borderline pulmonary hypertension - TR gradient 35 mmHg. Left Ventricular Wall Motion: Rest Echo Findings All wall segments showed normal motion. Findings: Study Quality * Technically adequate exam. ECG Findings * Normal sinus rhythm. Probable BBB. Left Ventricle * LVEF 55%. * Normal LV chamber size, wall thickness and function. * Moderate left ventricular diastolic dysfunction. * There is no LV thrombus. * Definity echo contrast was used. * Atypical septal motion consistent with bundle branch block. Right Ventricle * Normal right ventricular structure and function. Left Atrium * Normal left atrial size. Right Atrium * Normal right atrial size. Aortic Valve * No aortic regurgitation. * Aortic valve not well visualized. * No aortic stenosis. Mitral Valve * Normal mitral valve structure. * No mitral stenosis. * Mild mitral regurgitation. Tricuspid Valve * Tricuspid valve not well visualized. * Trace tricuspid regurgitation. Pulmonic Valve * Pulmonic valve is not well visualized. * No pulmonic stenosis. * No pulmonic regurgitation. Pulmonary Artery * Pulmonary artery not well visualized. Aorta * Normally sized aortic root. Pericardium * There is no pericardial effusion present. Interatrial Septum * No evidence of PFO with agitated saline contrast. IVC * The IVC is not well evaluated. - VTE Documentation of Mechanical Device: Venous foot pump, device Consult Discharge Plan - Plan Referrals: Maurisio Ward MD [Primary Care Provider] -
[2017-10-17] MEDS: *HR* LORazepam 0.5 MG TABLET PO SCH (21:41)
[2017-10-17] MEDS: Insulin DETEMIR 100 UNIT/ML X5UNITS SQ SCH (21:44)
[2017-10-17] MEDS ORDERED: *HR* Heparin 5,000 UNIT/ML VIAL IVP PRN ×2 (21:45)
[2017-10-17] MEDS: Acetaminophen 325 MG TABLET PO PRN (21:53)
[2017-10-17] MEDS: Heparin 25,000 UNIT/500 ML D5W 25,000 UNIT/500 ML BAG IVC SCH (21:57)
[2017-10-18] MEDS: Ipratropium/Albuterol Neb 3 ML IH SCH ×4 (04:52→21:01)
[2017-10-18 06:29] LABS: INR 1.1; Prothrombin Time 11.3 Seconds (9.4-12.1)
[2017-10-18 06:33] LABS: Basophils # 0.1 K/mcL (0.0-0.2); Basophils % 0.6 %; Eosinophils % 0.3 %; Hematocrit 35.7 % (35.3-44.9); Hemoglobin 11.6 g/dL (11.5-15.4); Immature Granulocytes % 5.6 % (0-4); Lymphocytes # 2.8 K/mcL (0.6-4.6); Lymphocytes % 18.4 %; Mean Corpuscular HGB Conc 32.5 g/dL (31.6-35.5); Mean Corpuscular Hemoglobin 29.4 pg (28.0-33.3); Mean Corpuscular Volume 90.4 fL (83.0-100.0); Mean Platelet Volume 9.8 fL (9.4-12.4); Monocytes # 0.7 K/mcL (0.0-1.3); Monocytes % 4.9 %; Neutrophils # 10.6 K/mcL (1.6-8.9); Platelet Count 180 K/mcL (140-400); Red Blood Count 3.95 M/mcL (3.82-4.97); Segmented Neutrophils % 70.2 %
[2017-10-18 06:45] LABS: Eosinophils # 0.1 K/mcL (0.0-0.6)
[2017-10-18] MEDS: FLUoxetine 20 MG CAPSULE PO SCH ×2 (07:35→20:12)
[2017-10-18] MEDS: Diltiazem CD (24hr) 120 MG CAPSULE PO SCH (07:35)
[2017-10-18] MEDS: Metoprolol XL (24 HR) Succ 25 MG TAB.ER.24H PO SCH ×2 (07:35→20:13)
[2017-10-18] MEDS: Isosorbide MONOnitrate (24 HR) 60 MG TAB.ER.24H PO SCH (07:35)
[2017-10-18] MEDS: Insulin LISPRO 300 UNITS/3 ML VIAL SQ SCH ×4 (07:35→21:36)
[2017-10-18] MEDS: Azithromycin 250 MG TABLET PO SCH (07:36)
[2017-10-18] MEDS: Furosemide 20 MG TABLET PO SCH (07:36)
[2017-10-18] MEDS: *HR* Morphine 2 MG/ML SYRINGE IVP PRN ×3 (07:36→20:13)
[2017-10-18] MEDS: Gabapentin 400 MG CAPSULE PO SCH ×3 (07:36→20:12)
[2017-10-18] MEDS: Famotidine 20 MG TABLET PO SCH ×2 (07:36→20:13)
[2017-10-18] MEDS: hydrOXYzine pamoate 25 MG CAPSULE PO SCH ×3 (07:36→20:12)
[2017-10-18] MEDS: Aspirin 81 MG TAB.CHEW PO SCH (07:36)
[2017-10-18] MEDS: predniSONE 20 MG TABLET PO SCH (07:36)
[2017-10-18] MEDS: Nicotine 14 MG PATCH.TD24 TD SCH (07:37)
[2017-10-18 07:58] LABS: Platelet Estimate Normal (Normal)
--- NOTE | 2017-10-18 09:05 | Internal Med Progress Note ---
<Tip Bueno - Last Filed: 10/18/17 14:41> Date of Encounter: 10/18/17 Time of Encounter: 09:05 - Assessment and plan (1) Chest pain Current Visit: No Status: Resolved Assessment and plan: June 2017: Stress test showed small size, very mild intensity perfusion defect involving the apex during stress with gated EF 43%. ECHO 10/16/17 showing EF 55%, moderate LV diastolic dysfunction and mild MR, no wall motion abnormalities. No changes from previous No EKG ischemic changes Trop neg Cardiology following - planned for [facility] this admission but due to recent CVA, medical management was recommended. Plan: Recommend medical management and out-pt f/u with her ventilating engineer, Dr. Gregory. Imdur increased. Qualifiers: Chest pain type: unspecified Qualified Code(s): R07.9 - Chest pain, unspecified (2) CVA (cerebral vascular accident) Current Visit: No Status: Acute Assessment and plan: Symptoms not present on admission INR was sub-therapeutic while taking Coumadin prior to arrival 10/15/17: acute onset of facial droop with left sided weakness. CT head ruled out hemorrhagic stroke. Telemedicine with [facility] was utilized and no tpa administered because patient was on anticoagulation. CTA of head and neck were negative. Echocardiogram was negative for thrombus. Risk factors: Hypertension, obesity, hyperlipidemia and atrial fib. Neuro following. Appreciate recommendations. INR 1.1 this morning Today, she has no facial droop or slurred speech. Motor strength deficit 4/5 on left hand only. No other deficits found. Plan: Core Measures: ASA, Statin therapy, PT, OT and Imaging neg as above Neuro check q4hrs D/c Heparin @1700 Starting SQ Lovenox @ 1800 Discharge planning - Possible short term rehab pending PT/OT recommendations Qualifiers: CVA mechanism: unspecified Qualified Code(s): I63.9 - Cerebral infarction, unspecified (3) COPD exacerbation Current Visit: Yes Status: Acute Assessment and plan: Resolving Denies any fevers, SOB, wheezing or productive cough Finished azithromycin One more dose of Prednisone 5 day burst (4) PAF (paroxysmal atrial fibrillation) Current Visit: No Status: Chronic Assessment and plan: Cardiology consulted Loop recorder showed high atrial rates at times. Cardizem was increased to 240 daily and toprol 25 daily continued. D/c Heparin @1700 Starting SQ Lovenox @ 1800 (5) Diabetes mellitus type 2 in obese Current Visit: Yes Status: Chronic Assessment and plan: per hx. Hgb A1c 6%. Blood sugars elevated secondary to steroids. Levemir 36 units HS. Increased to MDSS coverage Monitor blood sugar and titrate PRN (6) CAD (coronary artery disease) Current Visit: No Status: Chronic Assessment and plan: 01/2016 LHC at [facility]: proximal LAD 30-40% in-stent restenosis, proximal RCA 30% lesion. Patient also noted to have small diagonal 1 branch ostial 60% lesion being medically managed ECHO 10/16/17 showing EF 55%, moderate LV diastolic dysfunction and mild MR, no wall motion abnormalities. No changes from previous Plan: Cardiology following Cont home ASA, coumadin, statin, BB and Imdur (recently increased per cardiology ) Qualifiers: Coronary Disease-Associated Artery/Lesion type: [place] artery [place] vs. transplanted heart: [place] heart Associated angina: with stable angina Qualified Code(s): I25.118 - Atherosclerotic heart disease of [place] coronary artery with other forms of angina pectoris (7) DVT prophylaxis Current Visit: Yes Status: Acute Assessment and plan: Switching from heparin to lovenox this afternoon - Subjective Interval history: Patient is admitted for chest pain, COPD Ex and found to have CVA Resting comfortably in chair this morning No concerns overnight No new complaints this morning but still has chest pain present but improved from yesterday Denies any fevers, chills, SOB, cough, abdominal pain, n/v, or GI issues - Constitutional Vitals: Temp Pulse Resp BP Pulse Ox 98.5 F 75 20 123/69 98 10/18/17 06:53 10/18/17 06:53 10/18/17 06:53 10/18/17 06:53 10/18/17 06:53 General appearance: Present: cooperative, A&O X 3, morbidly obese, pleasant - Head Head exam: Present: atraumatic, normocephalic - Eye Eye exam: Present: EOMI, normal appearance, conjuntiva pink, sclera anicteric Pupils: Present: PERRL - ENT ENT exam: Present: mucous membranes moist - Neck Neck exam general surgery: Present: supple, trachea midline - Respiratory Respiratory exam: Present: CTAB. Absent: respiratory distress, rhonchi, wheezes - Cardiovascular Cardiovascular exam: Present: distant heart sounds, RRR, +S1, +S2 - GI/Abdominal GI/Abdominal exam: Present: normal bowel sounds, soft. Absent: distended, tenderness - Extremities Exam Extremities exam: Present: warm. Absent: calf tenderness, pedal edema, tenderness - Neurological Exam Neurological exam: Present: alert, oriented X3, reflexes normal. Absent: strengths equal and symetr throughout (decreased strength in left hand only), pronater drift, facial droop, speech deficit - Psychiatric Psychiatric exam: Present: normal affect, normal mood - Skin Skin exam: Present: dry, warm Internal Medicine: Result - Labs CBC & Chem 7: 10/18/17 06:10 10/18/17 06:10 Labs: Short CBC 10/18/17 Range/Units 06:10 WBC 15.1 H (4.3-11.1) K/mcL Hgb 11.6 (11.5-15.4) g/dL Hct 35.7 (35.3-44.9) % Plt Count 180 (140-400) K/mcL Neutrophils # 10.6 H (1.6-8.9) K/mcL - ABG Interpretation ABG results: PT/INR, D-dimer PT 11.3 Seconds (9.4-12.1) 10/18/17 06:10 D-Dimer < 215 ng/mLFEU (0-500) 10/13/17 11:13 - VTE Documentation of Mechanical Device: Venous foot pump, device Consult Discharge Plan - Plan Referrals: Maurisio Ward MD [Primary Care Provider] - <Darcy Maier - Last Filed: 10/18/17 19:20> Date of Encounter: 10/18/17 - Constitutional Vitals: Temp Pulse Resp BP Pulse Ox 98.5 F 75 14 138/77 97 10/18/17 19:08 10/18/17 19:08 10/18/17 19:08 10/18/17 19:08 10/18/17 19:08 Internal Medicine: Result - Labs CBC & Chem 7: 10/18/17 06:10 10/18/17 06:10 Labs: Short CBC 10/18/17 Range/Units 06:10 WBC 15.1 H (4.3-11.1) K/mcL Hgb 11.6 (11.5-15.4) g/dL Hct 35.7 (35.3-44.9) % Plt Count 180 (140-400) K/mcL Neutrophils # 10.6 H (1.6-8.9) K/mcL BMP 10/18/17 06:10 Sodium 134 L Potassium 4.0 Chloride 105 Carbon Dioxide 24 BUN 19 Creatinine 0.65 Glucose 236 H Calcium 8.6 Liver Function 10/18/17 Range/Units 06:10 Total Bilirubin 0.2 L (0.3-1.0) mg/dL AST 13 (13-39) Units/L ALT 25 (7-52) Units/L Alkaline Phosphatase 93 (34-104) Units/L Albumin 3.4 L (3.5-5.7) g/dL - ABG Interpretation ABG results: PT/INR, D-dimer PT 11.3 Seconds (9.4-12.1) 10/18/17 06:10 D-Dimer < 215 ng/mLFEU (0-500) 10/13/17 11:13 - Attending Attestation I examined this patient and my medical decision-making was reviewed with the Resident Physician Dr. Bueno. I agree with the documented findings, disposition and treatment plan as described except to the extent set forth below. Pt was seen and examined at bed side. She is resting comfortably in chair. Denied any CP / SOB. Denied any weakness . 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 Left facial droop - Mostly TIA r/o CVA.. CTA of Head - negative Cont ASA, Statin Cont anti coag - COumadin 2. PAF rate controlled sub therpautiec anti coag on Coumadin switched to Lovenox from Heparin to bride with Coumadin 3. Physical deconditioning PT / OT eval She stayed in the hospital for more than 5 days due to her complex medical problem, so will switch her to full admission today. I did review my colleague Dr. Velazquez's H & P including HPI, PMH, PSH, FH, SH and ROS, no changes noticed
[2017-10-18 09:16] LABS: Alanine Aminotransferase 25 Units/L (7-52); Albumin 3.4 g/dL (3.5-5.7); Albumin/Globulin Ratio 1.4 (1.1-2.2); Alkaline Phosphatase 93 Units/L (34-104); Aspartate Amino Transferase 13 Units/L (13-39); BUN/Creatinine Ratio 29 (6-26); Bilirubin,Total 0.2 mg/dL (0.3-1.0); Blood Urea Nitrogen 19 mg/dL (6-20); Calcium 8.6 mg/dL (8.6-10.3); Carbon Dioxide 24 mEq/L (23-29); Chloride 105 mEq/L (98-107); Globulin 2.4 g/dL (2.4-3.5); Glucose 236 mg/dL (70-105); Osmolality,Calculated 288 (280-300); Sodium 134 mEq/L (136-145); Total Protein 5.8 g/dL (6.4-8.9); eGFR For African Americans > 60 (> 60); eGFR For Non-African Americans > 60 (> 60)
[2017-10-18] MEDS: Tiotropium 18 MCG inhalation IH SCH (10:25)
[2017-10-18] MEDS: Budesonide/Formoterol 160/4.5 MDI IH SCH ×2 (10:26→20:57)
[2017-10-18] MEDS: Levalbuterol 1 PUFF INHALER IH SCH ×2 (10:27→20:57)
[2017-10-18] MEDS: Acetaminophen 325 MG TABLET PO PRN (11:18)
[2017-10-18] MEDS ORDERED: *HR* Warfarin 7.5 MG TABLET PO ONE (18:00)
[2017-10-18] MEDS: *HR* Enoxaparin 120 MG/0.8 ML SYRINGE SQ SCH (18:15)
[2017-10-18] MEDS: *HR* LORazepam 0.5 MG TABLET PO SCH (20:13)
[2017-10-18] MEDS: Insulin DETEMIR 100 UNIT/ML X5UNITS SQ SCH (21:37)
[2017-10-19] MEDS: Ipratropium/Albuterol Neb 3 ML IH SCH ×4 (04:16→22:00)
[2017-10-19] MEDS: *HR* Enoxaparin 120 MG/0.8 ML SYRINGE SQ SCH ×2 (05:23→17:21)
[2017-10-19 07:10] LABS: BUN/Creatinine Ratio 30 (6-26); Blood Urea Nitrogen 20 mg/dL (6-20); Calcium 9.2 mg/dL (8.6-10.3); Carbon Dioxide 27 mEq/L (23-29); Chloride 103 mEq/L (98-107); Glucose 122 mg/dL (70-105); Osmolality,Calculated 288 (280-300); Potassium 4.2 mEq/L (3.5-5.1); Sodium 137 mEq/L (136-145); eGFR For African Americans > 60 (> 60); eGFR For Non-African Americans > 60 (> 60)
[2017-10-19 07:25] LABS: Hematocrit 37.1 % (35.3-44.9); Mean Corpuscular HGB Conc 32.3 g/dL (31.6-35.5); Mean Corpuscular Hemoglobin 29.2 pg (28.0-33.3); Mean Corpuscular Volume 90.3 fL (83.0-100.0); Platelet Count 199 K/mcL (140-400); Red Blood Count 4.11 M/mcL (3.82-4.97); Red Cell Distribution Width 14.4 % (11.5-14.5)
[2017-10-19 07:47] LABS: INR 1.4; Prothrombin Time 15.1 Seconds (9.4-12.1)
[2017-10-19 08:51] LABS: Lymphocytes # 2.8 K/mcL (0.6-4.6); Monocytes # 1.1 K/mcL (0.0-1.3); Neutrophils # 10.2 K/mcL (1.6-8.9)
[2017-10-19 08:52] LABS: Platelet Estimate Normal (Normal)
[2017-10-19] MEDS: *HR* Morphine 2 MG/ML SYRINGE IVP PRN ×3 (09:41→18:07)
[2017-10-19] MEDS: predniSONE 20 MG TABLET PO SCH (09:45)
[2017-10-19] MEDS: Metoprolol XL (24 HR) Succ 25 MG TAB.ER.24H PO SCH ×2 (09:45→20:49)
[2017-10-19] MEDS: Diltiazem CD (24hr) 120 MG CAPSULE PO SCH (09:45)
[2017-10-19] MEDS: FLUoxetine 20 MG CAPSULE PO SCH ×2 (09:45→20:48)
[2017-10-19] MEDS: Famotidine 20 MG TABLET PO SCH ×2 (09:46→20:48)
[2017-10-19] MEDS: Nicotine 14 MG PATCH.TD24 TD SCH (09:46)
[2017-10-19] MEDS: Gabapentin 400 MG CAPSULE PO SCH ×3 (09:46→20:49)
[2017-10-19] MEDS: hydrOXYzine pamoate 25 MG CAPSULE PO SCH ×3 (09:46→20:49)
[2017-10-19] MEDS: Aspirin 81 MG TAB.CHEW PO SCH (09:46)
[2017-10-19] MEDS: Furosemide 20 MG TABLET PO SCH (09:46)
--- NOTE | 2017-10-19 10:51 | Discharge Summary ---
<Tip Bueno - Last Filed: 10/20/17 09:43> Date of Encounter: 10/20/17 Time of Encounter: 09:00 - Discharge Diagnosis (1) Chest pain Priority: Primary Status: Resolved Qualifiers: Chest pain type: unspecified Qualified Code(s): R07.9 - Chest pain, unspecified (2) CVA (cerebral vascular accident) Priority: Primary Status: Acute Qualifiers: CVA mechanism: unspecified Qualified Code(s): I63.9 - Cerebral infarction, unspecified (3) COPD exacerbation Priority: Primary Status: Resolved (4) PAF (paroxysmal atrial fibrillation) Priority: Secondary Status: Chronic (5) Diabetes mellitus type 2 in obese Priority: Secondary Status: Chronic (6) CAD (coronary artery disease) Priority: Secondary Status: Chronic Qualifiers: Coronary Disease-Associated Artery/Lesion type: [place] artery [place] vs. transplanted heart: [place] heart Associated angina: with stable angina Qualified Code(s): I25.118 - Atherosclerotic heart disease of [place] coronary artery with other forms of angina pectoris (7) DVT prophylaxis Priority: Secondary Status: Acute - Discharge Medications Home Medications: Budesonide/Formoterol 160/4.5 [Symbicort 160/4.5] 2 puff IH BIDR 12/30/16 [ History] Insulin ASPART [NovoLOG] 2 - 10 unit SQ TIDWM PRN 12/30/16 [History] Insulin Glargine,Hum.rec.anlog [Lantus Solostar] 36 unit SQ HS 12/30/16 [History ] Nitroglycerin [Nitrostat] 0.4 mg SL Q5M PRN 12/30/16 [History] Ranitidine HCl [Acid Freight Rate Specialist] 150 mg PO BID 12/30/16 [History] Tiotropium [Spiriva] 18 mcg IH DAILY 12/30/16 [History] Calcium Polycarbophil [Fibercon] 625 mg PO DAILY 03/15/17 [History] Oxygen 2 l NS HS 03/15/17 [History] LORazepam [Ativan] 0.5 mg PO HS #30 tablet 06/13/17 [Rx] hydrOXYzine pamoate [HydrOXYzine Pamoate] 50 mg PO TID #90 06/20/17 [Rx] Atorvastatin [Lipitor] 40 mg PO HS 07/03/17 [History] Quetiapine Fumarate [Seroquel] 300 mg PO HS 07/20/17 [History] Aspirin 81 mg PO DAILY #30 tab.chew 07/22/17 [Rx] Gabapentin [Neurontin] 400 mg PO TID 08/29/17 [History] Meclizine [Antivert] 12.5 mg PO BID 08/29/17 [History] Buspirone HCl [Buspar] 10 mg PO BID 09/14/17 [History] Diclofenac Sodium [Voltaren] 75 mg PO BID 09/14/17 [History] FLUoxetine HCl [Prozac] 40 mg PO BID 09/14/17 [History] Furosemide [Lasix] 20 - 40 mg PO DAILY 10/13/17 [History] Ipratropium/Albuterol Neb [Duoneb] 3 ml IH Q0MDISY PRN 10/13/17 [History] Potassium Chloride [K-Tab ER] 10 meq PO DAILY 10/13/17 [History] Prochlorperazine Maleate [Compazine] 10 mg PO Q8HR PRN 10/13/17 [History] predniSONE [PredniSONE] See Taper PO DAILY 10/13/17 [History] Diltiazem CD (24hr) [Cardizem CD] 240 mg PO DAILY cap.er.24h 10/20/17 [Rx] Isosorbide MONOnitrate (24 HR) [Imdur] 120 mg PO DAILY tab.er.24h 10/20/17 [Rx] Metoprolol XL (24 HR) Succ [Toprol Xl] 25 mg PO BID tab.er.24h 10/20/17 [Rx] Warfarin [Coumadin] 4 mg PO SUMOWEFR #0 10/20/17 [Rx] Warfarin [Coumadin] 5 mg PO TUTHSA #0 10/20/17 [Rx] Allergies/Adverse Reactions: 3 Allergy/AdvReac Type Severity Reaction Status Date / Time baclofen Allergy Itching Verified 09/25/17 18:02 ciprofloxacin [From Cipro] Allergy Hives Verified 09/25/17 18:02 latex Allergy Rash Verified 09/25/17 18:02 Penicillins Allergy Hives Verified 09/25/17 18:02 prednisone Allergy Itching Verified 09/25/17 18:02 sulfamethoxazole Allergy Hives Verified 09/25/17 18:02 [From Bactrim] trimethoprim [From Bactrim] Allergy Hives Verified 09/25/17 18:02 cefdinir AdvReac Vomiting Verified 09/25/17 18:02 Oxycodone AdvReac Hallucinati Verified 09/25/17 18:02 ng Date of admission: 10/18/17 19:21 Primary care physician: Maurisio Ward MD Discharging clinician: Darcy Maier Anticipated date of discharge: 10/20/17 - Patient Status Disposition: Transfer Hospital Swing Bed Condition: Good Overall status at discharge: patient is progressing back to baseline - Discharge Instructions Instructions: Right Hemispheric Stroke (DC), COPD Exacerbation, Instrument And Control Service Person (GEN) Follow Up With: Maurisio Ward MD [Primary Care Provider] - Forms: ED Satisfaction Letter Additional Instructions: Take all medications as prescribed Take Coumadin Tues/Thurs/Sat 5mg and Mon/Wed/Fri/Sun 4mg Will need to followup with Coumadin clinic on discharge from [facility] - Diet and Activity Activity: as per physical therapy Diet: diabetic diet, low salt diet Hospital course: Ms. Strong is a 52 year old female with a past medical history of arthritis, asthma, atrial fibrillation anti-coagulated on Coumadin, COPD, CAD, TIA 3 with last occurrence in June 2017, diabetes with insulin dependency, GERD, HTN, migraine, AR 3 with last occurrence in 2009, PAD reports from the ED with chief complaint shortness of breath and dyspnea for several days. Patient states she has had increasing shortness of breath and usually uses 3-4L of home oxygen but her PCP told her to increase to 8-12L as needed. Patient's daughter states SPO2 has only been on the high 80s. Patient also reports cough and wheezing in addition to SOB. Patient denies recent illness, fever, chills, nausea, vomiting, diarrhea, constipation, changes in vision, chest pain, palpitations, abdominal pain, numbness, tingling, dizziness, lightheadedness, pre-syncope, or syncope. On arrival, CXR neg, WBC 12.8, INR 1.2 and normal kidney function. She was admitted for COPD exacerbation and started on steroids , nebulizer treatments and azithromycin. She completed 4 days of antibiotics with 5 days of steroids and exacerbation resolved. On 10/15/17 she started experiencing slurred speech, left sided weakness and left facial droop. CT head ruled out hemorrhagic stroke. Telemedicine with [facility] was utilized and no TPA given with patient on Coumadin. CTA of head and neck were negative. Echocardiogram was negative for thrombus. Core measures were continued with ASA, Statin therapy, PT and OT. Neuro consulted and recommended long term acute care registered nurse anti-coagulation. Heparin drip was started initially but was transitioned to Lovenox to bridge to Coumadin. INR chrystal to 1.8 and will continue Coumadin Tues/Thurs/Sat 5mg and Mon/Wed/Fri/Sun 4mg. Facial droop and speech resolved. Speech therapy cleared patient. LUE an LLE weakness 4/5 persisted. PT and OT recommended swing bed/inpatient rehab. She was discharged in stable condition to [facility] swing bed unit on 10/19/17 with adequate followup in place. All questions and concerns were addressed. - Time Spent with Patient Total time spent providing and/or coordinating discharge services: - Constitutional Vitals: Temp Pulse Resp BP Pulse Ox 98.0 F 67 18 143/76 96 10/19/17 06:37 10/19/17 06:37 10/19/17 06:37 10/19/17 06:37 10/19/17 06:37 General appearance: Present: cooperative, A&O X 3, morbidly obese, pleasant, answers questions appropriately - Head Head exam: Present: atraumatic, normocephalic - Eye Eye exam: Present: EOMI, normal appearance, conjuntiva pink, sclera anicteric - ENT ENT exam: Present: mucous membranes moist - Neck Neck exam general surgery: Present: supple, trachea midline - Respiratory Respiratory exam: Present: CTAB. Absent: respiratory distress, rhonchi, wheezes - Cardiovascular Cardiovascular exam: Present: RRR, +S1, +S2 - GI/Abdominal GI/Abdominal exam: Present: normal bowel sounds, soft. Absent: tenderness - Extremities Exam Extremities exam: Present: warm. Absent: calf tenderness, pedal edema, tenderness - Neurological Exam Neurological exam: Present: alert, CN II-XII intact, oriented X3. Absent: strengths equal and symetr throughout (4/5 LLE and LUE) - Psychiatric Psychiatric exam: Present: normal affect, normal mood - Skin Skin exam: Present: dry, warm - VTE Documentation of Mechanical Device: Venous foot pump, device <Darcy Maier - Last Filed: 10/20/17 16:46> Date of Encounter: 10/20/17 Date of admission: 10/18/17 19:21 Primary care physician: Maurisio Ward MD Hospital course: Ms. Strong is a 52 year old female - Time Spent with Patient Total time spent providing and/or coordinating discharge services: - Constitutional Vitals: Temp Pulse Resp BP Pulse Ox 98.0 F 71 18 109/68 96 10/20/17 15:04 10/20/17 15:04 10/20/17 15:04 10/20/17 15:04 10/20/17 15:04 - Attending Attestation I examined this patient and my medical decision-making was reviewed with the Resident Physician Dr. Bueno. I agree with the documented findings, disposition and treatment plan as described except to the extent set forth below. Pt was seen and examined at bed side. She is resting comfortably in chair. Denied any CP / SOB. Denied any weakness . Denied any speech problems.. 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 Left facial droop, Left side weakness- Mostly TIA r/o CVA.. CTA of Head - negative Cont ASA, Statin Cont anti coag - Coumadin 2. PAF rate controlled INR - 1.8 She can get Lovenox 1 more dose tonight continue Coumadin PT / INR in AM 3. Physical deconditioning PT / OT recommend swing bed placement Medically stable to d/c to swing bed today
[2017-10-19] MEDS: Heparin 25,000 UNIT/500 ML D5W 25,000 UNIT/500 ML BAG IVC SCH (11:40)
[2017-10-19] MEDS: Insulin LISPRO 300 UNITS/3 ML VIAL SQ SCH ×4 (11:58→20:04)
[2017-10-19] MEDS: Levalbuterol 1 PUFF INHALER IH SCH ×2 (12:11→22:01)
[2017-10-19] MEDS: Budesonide/Formoterol 160/4.5 MDI IH SCH ×2 (12:11→22:01)
[2017-10-19] MEDS: Tiotropium 18 MCG inhalation IH SCH (12:12)
[2017-10-19] MEDS: Isosorbide MONOnitrate (24 HR) 60 MG TAB.ER.24H PO SCH (12:13)
--- NOTE | 2017-10-19 16:28 | Internal Med Progress Note ---
<Tip Bueno - Last Filed: 10/19/17 16:35> Date of Encounter: 10/19/17 Time of Encounter: 08:00 - Assessment and plan (1) CVA (cerebral vascular accident) Current Visit: No Status: Acute Assessment and plan: Symptoms not present on admission INR was sub-therapeutic while taking Coumadin prior to arrival 10/15/17: acute onset of facial droop with left sided weakness. CT head ruled out hemorrhagic stroke. Telemedicine with [facility] was utilized and no tpa administered because patient was on anticoagulation. CTA of head and neck were negative. Echocardiogram was negative for thrombus. Risk factors: Hypertension, obesity, hyperlipidemia and atrial fib. Neuro following. Appreciate recommendations. INR 1.4 this morning Today, she has no facial droop or slurred speech. Motor strength deficit 4/5 LUE and LLE. No other deficits found. Plan: Core Measures: ASA, Statin therapy, PT, OT and Imaging neg as above SQ Lovenox for now with bridge to Coumadin Discharge planning - PT/OT recommend swing bed/inpatient rehab placement tomorrow Qualifiers: CVA mechanism: unspecified Qualified Code(s): I63.9 - Cerebral infarction, unspecified (2) COPD exacerbation Current Visit: Yes Status: Resolved Assessment and plan: Resolved Denies any fevers, SOB, wheezing or productive cough Finished azithromycin Finished Prednisone 5 day burst (3) Chest pain Current Visit: No Status: Resolved Assessment and plan: June 2017: Stress test showed small size, very mild intensity perfusion defect involving the apex during stress with gated EF 43%. ECHO 10/16/17 showing EF 55%, moderate LV diastolic dysfunction and mild MR, no wall motion abnormalities. No changes from previous No EKG ischemic changes Trop neg Cardiology following - planned for [facility] this admission but due to recent CVA, medical management was recommended. 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 Gregory. Imdur increased. Qualifiers: Chest pain type: unspecified Qualified Code(s): R07.9 - Chest pain, unspecified (4) PAF (paroxysmal atrial fibrillation) Current Visit: No Status: Chronic Assessment and plan: Cardiology consulted Loop recorder showed high atrial rates at times. Cardizem was increased to 240 daily and toprol 25 daily continued. SQ Lovenox for now with bridge to Coumadin (5) Diabetes mellitus type 2 in obese Current Visit: Yes Status: Chronic Assessment and plan: per hx. Hgb A1c 6%. Recent steroid use Levemir 36 units HS. MDSS coverage BS improved from yesterday (6) CAD (coronary artery disease) Current Visit: No Status: Chronic Assessment and plan: 01/2016 LHC at [facility]: proximal LAD 30-40% in-stent restenosis, proximal RCA 30% lesion. Patient also noted to have small diagonal 1 branch ostial 60% lesion being medically managed ECHO 10/16/17 showing EF 55%, moderate LV diastolic dysfunction and mild MR, no wall motion abnormalities. No changes from previous Plan: Cardiology following Cont home ASA, coumadin, statin, BB and Imdur (recently increased per cardiology ) Qualifiers: Coronary Disease-Associated Artery/Lesion type: [place] artery [place] vs. transplanted heart: [place] heart Associated angina: with stable angina Qualified Code(s): I25.118 - Atherosclerotic heart disease of [place] coronary artery with other forms of angina pectoris (7) DVT prophylaxis Current Visit: Yes Status: Acute Assessment and plan: Lovenox with bridge to Coumadin - Subjective Interval history: Patient is admitted for chest pain, COPD Ex and found to have CVA Resting comfortably in chair this morning No concerns overnight States that she feels "much better" since yesterday Concerned about occasional chest pain and walking because her left lower extremity is weak Denies any fevers, chills, SOB, cough, abdominal pain, n/v, or GI issues - Constitutional Vitals: Temp Pulse Resp BP Pulse Ox 98.1 F 78 18 136/71 92 10/19/17 15:53 10/19/17 15:53 10/19/17 15:53 10/19/17 15:53 10/19/17 15:53 General appearance: Present: cooperative, A&O X 3, morbidly obese, pleasant, answers questions appropriately - Head Head exam: Present: atraumatic, normocephalic - Eye Eye exam: Present: EOMI, normal appearance, conjuntiva pink, sclera anicteric - ENT ENT exam: Present: mucous membranes moist - Neck Neck exam general surgery: Present: supple, trachea midline - Respiratory Respiratory exam: Present: CTAB. Absent: respiratory distress - Cardiovascular Cardiovascular exam: Present: RRR, +S1, +S2 - GI/Abdominal GI/Abdominal exam: Present: normal bowel sounds, soft. Absent: tenderness - Extremities Exam Extremities exam: Present: warm. Absent: calf tenderness, pedal edema, tenderness - Neurological Exam Neurological exam: Present: alert, CN II-XII intact, oriented X3. Absent: strengths equal and symetr throughout (4/5 LUE and LLE), facial droop, speech deficit - Psychiatric Psychiatric exam: Present: normal affect, normal mood - Skin Skin exam: Present: dry, warm. Absent: diaphoretic Internal Medicine: Result - Labs CBC & Chem 7: 10/19/17 05:33 10/19/17 05:33 Labs: Short CBC 10/19/17 Range/Units 05:33 WBC 14.1 H (4.3-11.1) K/mcL Hgb 12.0 (11.5-15.4) g/dL Hct 37.1 (35.3-44.9) % Plt Count 199 (140-400) K/mcL Neutrophils # 10.2 H (1.6-8.9) K/mcL BMP 10/19/17 05:33 Sodium 137 Potassium 4.2 Chloride 103 Carbon Dioxide 27 BUN 20 Creatinine 0.67 Glucose 122 H Calcium 9.2 - ABG Interpretation ABG results: PT/INR, D-dimer PT 15.1 Seconds (9.4-12.1) H 10/19/17 05:33 D-Dimer < 215 ng/mLFEU (0-500) 10/13/17 11:13 - VTE Documentation of Mechanical Device: Venous foot pump, device Consult Discharge Plan - Plan Instructions: Right Hemispheric Stroke (DC), COPD Exacerbation, Pre Press Operator (GEN) Referrals: Maurisio Ward MD [Primary Care Provider] - <Darcy Maier - Last Filed: 10/19/17 18:26> Date of Encounter: 10/19/17 - Constitutional Vitals: Temp Pulse Resp BP Pulse Ox 98.1 F 78 18 136/71 92 10/19/17 15:53 10/19/17 15:53 10/19/17 15:53 10/19/17 15:53 10/19/17 15:53 Internal Medicine: Result - Labs CBC & Chem 7: 10/19/17 05:33 10/19/17 05:33 Labs: Short CBC 10/19/17 Range/Units 05:33 WBC 14.1 H (4.3-11.1) K/mcL Hgb 12.0 (11.5-15.4) g/dL Hct 37.1 (35.3-44.9) % Plt Count 199 (140-400) K/mcL Neutrophils # 10.2 H (1.6-8.9) K/mcL BMP 10/19/17 05:33 Sodium 137 Potassium 4.2 Chloride 103 Carbon Dioxide 27 BUN 20 Creatinine 0.67 Glucose 122 H Calcium 9.2 - ABG Interpretation ABG results: PT/INR, D-dimer PT 15.1 Seconds (9.4-12.1) H 10/19/17 05:33 D-Dimer < 215 ng/mLFEU (0-500) 10/13/17 11:13 - Attending Attestation I examined this patient and my medical decision-making was reviewed with the Resident Physician Dr. Bueno. I agree with the documented findings, disposition and treatment plan as described except to the extent set forth below. Pt was seen and examined at bed side. She is resting comfortably in chair. Denied any CP / SOB. Denied any weakness . Denied any speech problems.. 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 Left facial droop, Left side weakness- Mostly TIA r/o CVA.. CTA of Head - negative Cont ASA, Statin Cont anti coag - Coumadin 2. PAF rate controlled sub therpautiec anti coag on Coumadin Cont Lovenox to bride with Coumadin 3. Physical deconditioning PT / OT recommend swing bed placement Possible d/c to swing bed in AM
[2017-10-19] MEDS ORDERED: *HR* Warfarin 5 MG TABLET PO ONE (18:00)
[2017-10-19] MEDS: Insulin DETEMIR 100 UNIT/ML X5UNITS SQ SCH (20:48)
[2017-10-19] MEDS: *HR* LORazepam 0.5 MG TABLET PO SCH (20:49)
[2017-10-19] MEDS: *HR* Promethazine 25 MG/ML VIAL IVP PRN (21:34)
[2017-10-20] MEDS: Ipratropium/Albuterol Neb 3 ML IH SCH ×4 (03:25→22:34)
[2017-10-20 04:27] LABS: INR 1.8
[2017-10-20] MEDS: *HR* Enoxaparin 120 MG/0.8 ML SYRINGE SQ SCH ×2 (05:48→17:24)
[2017-10-20] MEDS: hydrOXYzine pamoate 25 MG CAPSULE PO SCH ×3 (08:32→20:18)
[2017-10-20] MEDS: Diltiazem CD (24hr) 120 MG CAPSULE PO SCH (08:33)
[2017-10-20] MEDS: FLUoxetine 20 MG CAPSULE PO SCH ×2 (08:33→20:19)
[2017-10-20] MEDS: Metoprolol XL (24 HR) Succ 25 MG TAB.ER.24H PO SCH ×2 (08:33→20:18)
[2017-10-20] MEDS: Famotidine 20 MG TABLET PO SCH ×2 (08:34→20:18)
[2017-10-20] MEDS: Gabapentin 400 MG CAPSULE PO SCH ×3 (08:34→20:19)
[2017-10-20] MEDS: Isosorbide MONOnitrate (24 HR) 60 MG TAB.ER.24H PO SCH (08:34)
[2017-10-20] MEDS: Furosemide 20 MG TABLET PO SCH (08:34)
[2017-10-20] MEDS: Aspirin 81 MG TAB.CHEW PO SCH (08:35)
[2017-10-20] MEDS: Nicotine 14 MG PATCH.TD24 TD SCH (08:35)
[2017-10-20] MEDS: Insulin LISPRO 300 UNITS/3 ML VIAL SQ SCH ×4 (08:39→22:04)
[2017-10-20] MEDS: *HR* Morphine 2 MG/ML SYRINGE IVP PRN (09:21)
--- NOTE | 2017-10-20 09:41 | Physician Discharge Referral ---
ExtendedCare Referral Info Transfer To: [facility] Provider in Charge after Transfer: PCP Institutional Level of Care: Skilled - Diagnosis (1) Chest pain Priority: Primary Status: Resolved (2) CVA (cerebral vascular accident) Priority: Primary Status: Acute (3) COPD exacerbation Priority: Primary Status: Resolved (4) PAF (paroxysmal atrial fibrillation) Priority: Secondary Status: Chronic (5) Diabetes mellitus type 2 in obese Priority: Secondary Status: Chronic (6) CAD (coronary artery disease) Priority: Secondary Status: Chronic (7) DVT prophylaxis Priority: Secondary Status: Acute - Transfer Medications Home Medications: Budesonide/Formoterol 160/4.5 [Symbicort 160/4.5] 2 puff IH BIDR 12/30/16 [ History] Insulin ASPART [NovoLOG] 2 - 10 unit SQ TIDWM PRN 12/30/16 [History] Insulin Glargine,Hum.rec.anlog [Lantus Solostar] 36 unit SQ HS 12/30/16 [History ] Nitroglycerin [Nitrostat] 0.4 mg SL Q5M PRN 12/30/16 [History] Ranitidine HCl [Acid Burring Wheel Operator] 150 mg PO BID 12/30/16 [History] Tiotropium [Spiriva] 18 mcg IH DAILY 12/30/16 [History] Calcium Polycarbophil [Fibercon] 625 mg PO DAILY 03/15/17 [History] Oxygen 2 l NS HS 03/15/17 [History] LORazepam [Ativan] 0.5 mg PO HS #30 tablet 06/13/17 [Rx] hydrOXYzine pamoate [HydrOXYzine Pamoate] 50 mg PO TID #90 06/20/17 [Rx] Atorvastatin [Lipitor] 40 mg PO HS 07/03/17 [History] Quetiapine Fumarate [Seroquel] 300 mg PO HS 07/20/17 [History] Aspirin 81 mg PO DAILY #30 tab.chew 07/22/17 [Rx] Gabapentin [Neurontin] 400 mg PO TID 08/29/17 [History] Meclizine [Antivert] 12.5 mg PO BID 08/29/17 [History] Buspirone HCl [Buspar] 10 mg PO BID 09/14/17 [History] Diclofenac Sodium [Voltaren] 75 mg PO BID 09/14/17 [History] FLUoxetine HCl [Prozac] 40 mg PO BID 09/14/17 [History] Furosemide [Lasix] 20 - 40 mg PO DAILY 10/13/17 [History] Ipratropium/Albuterol Neb [Duoneb] 3 ml IH [id number] PRN 10/13/17 [History] Potassium Chloride [K-Tab ER] 10 meq PO DAILY 10/13/17 [History] Prochlorperazine Maleate [Compazine] 10 mg PO Q8HR PRN 10/13/17 [History] predniSONE [PredniSONE] See Taper PO DAILY 10/13/17 [History] Diltiazem CD (24hr) [Cardizem CD] 240 mg PO DAILY cap.er.24h 10/20/17 [Rx] Isosorbide MONOnitrate (24 HR) [Imdur] 120 mg PO DAILY tab.er.24h 10/20/17 [Rx] Metoprolol XL (24 HR) Succ [Toprol Xl] 25 mg PO BID tab.er.24h 10/20/17 [Rx] Warfarin [Coumadin] 4 mg PO SUMOWEFR #0 10/20/17 [Rx] Warfarin [Coumadin] 5 mg PO TUTHSA #0 10/20/17 [Rx] Allergies/Adverse Reactions: 3 Allergy/AdvReac Type Severity Reaction Status Date / Time baclofen Allergy Itching Verified 09/25/17 18:02 ciprofloxacin [From Cipro] Allergy Hives Verified 09/25/17 18:02 latex Allergy Rash Verified 09/25/17 18:02 Penicillins Allergy Hives Verified 09/25/17 18:02 prednisone Allergy Itching Verified 09/25/17 18:02 sulfamethoxazole Allergy Hives Verified 09/25/17 18:02 [From Bactrim] trimethoprim [From Bactrim] Allergy Hives Verified 09/25/17 18:02 cefdinir AdvReac Vomiting Verified 09/25/17 18:02 Oxycodone AdvReac Hallucinati Verified 09/25/17 18:02 ng - Respiratory Orders None Smoking Cessation: Smoking cessation has been advised. For more information, call the [place] Tobacco Quit Line at 1-447-TXHW-NOW. - Lab Orders Lab Orders: Other (include drug levels w/frequency) (INR daily (goal 2-3), have pharmacy monitor coumadin regimen. plan for //Sat 5mg and Mon/Tue/Fri/ Sun 4mg) - Advance Directives Code Status: Full Code - Mobility Orders Other (PT recommendations only, ambulate with CGA) - Rehabiliation Orders Rehab Orders: Evaluation for Physical Therapy, Evaluation for Occupational Therapy - Diet Orders Cardiac (diabetic) CERTIFICATION: I certify that the transfer of the above named patient to an Extended Care Facility is necessary for the continuing treatment of the diagnosis listed. The above information is true and accurate reflection of patient's current condition. Confidential - Redisclosure prohibited without a patient's written consent.
[2017-10-20] MEDS: Tiotropium 18 MCG inhalation IH SCH (10:23)
[2017-10-20] MEDS: Budesonide/Formoterol 160/4.5 MDI IH SCH ×2 (10:23→22:32)
[2017-10-20] MEDS: Levalbuterol 1 PUFF INHALER IH SCH ×2 (10:24→22:32)
[2017-10-20] MEDS: Acetaminophen 325 MG TABLET PO PRN (12:26)
[2017-10-20] MEDS ORDERED: *HR* OxyCODONE/APAP 5/325 TABLET PO PRN (17:35)
[2017-10-20] MEDS ORDERED: *HR* Warfarin 5 MG TABLET PO ONE (18:00)
[2017-10-20] MEDS: Insulin DETEMIR 100 UNIT/ML X5UNITS SQ SCH (20:19)
[2017-10-20] MEDS: *HR* LORazepam 0.5 MG TABLET PO SCH (20:19)
[2017-10-20] MEDS: *HR* OxyCODONE/APAP 7.5/325 TABLET PO PRN (22:55)
[2017-10-20] MEDS: *HR* Promethazine 25 MG/ML VIAL IVP PRN (22:55)
[2017-10-21] MEDS: Ipratropium/Albuterol Neb 3 ML IH SCH ×4 (04:14→23:07)
[2017-10-21] MEDS: *HR* OxyCODONE/APAP 7.5/325 TABLET PO PRN ×3 (05:03→17:53)
[2017-10-21] MEDS: *HR* Enoxaparin 120 MG/0.8 ML SYRINGE SQ SCH (05:03)
[2017-10-21 06:01] LABS: INR 2.1; Prothrombin Time 22.5 Seconds (9.4-12.1)
[2017-10-21] MEDS: Diltiazem CD (24hr) 120 MG CAPSULE PO SCH (08:08)
[2017-10-21] MEDS: FLUoxetine 20 MG CAPSULE PO SCH ×2 (08:08→20:49)
[2017-10-21] MEDS: Isosorbide MONOnitrate (24 HR) 60 MG TAB.ER.24H PO SCH (08:08)
[2017-10-21] MEDS: hydrOXYzine pamoate 25 MG CAPSULE PO SCH ×3 (08:08→20:50)
[2017-10-21] MEDS: Furosemide 20 MG TABLET PO SCH (08:08)
[2017-10-21] MEDS: Metoprolol XL (24 HR) Succ 25 MG TAB.ER.24H PO SCH ×2 (08:08→20:50)
[2017-10-21] MEDS: Gabapentin 400 MG CAPSULE PO SCH ×3 (08:09→20:49)
[2017-10-21] MEDS: Insulin LISPRO 300 UNITS/3 ML VIAL SQ SCH ×4 (08:09→20:50)
[2017-10-21] MEDS: Aspirin 81 MG TAB.CHEW PO SCH (08:09)
[2017-10-21] MEDS: Nicotine 14 MG PATCH.TD24 TD SCH (08:09)
[2017-10-21] MEDS: Famotidine 20 MG TABLET PO SCH ×2 (08:09→20:50)
--- NOTE | 2017-10-21 08:32 | Internal Med Progress Note ---
<Tip Bueno - Last Filed: 10/21/17 08:30> Date of Encounter: 10/21/17 Time of Encounter: 08:30 - Assessment and plan (1) Chest pain Current Visit: No Status: Resolved Assessment and plan: June 2017: Stress test showed small size, very mild intensity perfusion defect involving the apex during stress with gated EF 43%. ECHO 10/16/17 showing EF 55%, moderate LV diastolic dysfunction and mild MR, no wall motion abnormalities. No changes from previous No EKG ischemic changes Trop neg Cardiology following - planned for [facility] this admission but due to recent CVA, medical management was recommended. Plan: Recommend medical management and out-pt f/u with her program coordinator, Dr. Gregory. Imdur increased. Qualifiers: Chest pain type: unspecified Qualified Code(s): R07.9 - Chest pain, unspecified (2) CVA (cerebral vascular accident) Current Visit: No Status: Acute Assessment and plan: INR 2.1 this morning Today, she has no facial droop or slurred speech. Motor strength deficit 4/5 LUE and LLE. No other deficits found. Plan: Core Measures: ASA, Statin therapy, PT, OT and Imaging neg as above Bridged to Coumadin Discharge planning - Medically stable for discharge to [place]. Pending insurance approval Qualifiers: CVA mechanism: unspecified Qualified Code(s): I63.9 - Cerebral infarction, unspecified (3) COPD exacerbation Current Visit: Yes Status: Resolved Assessment and plan: Resolved Denies any fevers, SOB, wheezing or productive cough Finished azithromycin Finished Prednisone 5 day burst (4) PAF (paroxysmal atrial fibrillation) Current Visit: No Status: Chronic Assessment and plan: Cardiology consulted Loop recorder showed high atrial rates at times. Cardizem was increased to 240 daily and toprol 25 daily continued. Bridged to Coumadin (5) Diabetes mellitus type 2 in obese Current Visit: Yes Status: Chronic Assessment and plan: per hx. Hgb A1c 6%. Recent steroid use Levemir 36 units HS. MDSS coverage BS improved from yesterday (6) CAD (coronary artery disease) Current Visit: No Status: Chronic Assessment and plan: 01/2016 LHC at [facility]: proximal LAD 30-40% in-stent restenosis, proximal RCA 30% lesion. Patient also noted to have small diagonal 1 branch ostial 60% lesion being medically managed ECHO 10/16/17 showing EF 55%, moderate LV diastolic dysfunction and mild MR, no wall motion abnormalities. No changes from previous Plan: Cardiology following Cont home ASA, coumadin, statin, BB and Imdur (recently increased per cardiology ) Qualifiers: Coronary Disease-Associated Artery/Lesion type: [place] artery [place] vs. transplanted heart: [place] heart Associated angina: with stable angina Qualified Code(s): I25.118 - Atherosclerotic heart disease of [place] coronary artery with other forms of angina pectoris (7) DVT prophylaxis Current Visit: Yes Status: Acute Assessment and plan: Bridged to Coumadin - Subjective Interval history: Patient is admitted for chest pain, COPD Ex and found to have CVA Medically stable for discharge to [place]. Pending insurance approval Resting comfortably in chair this morning No concerns overnight Denies any fevers, chills, SOB, cough, abdominal pain, n/v, or GI issues - Constitutional Vitals: Temp Pulse Resp BP Pulse Ox 98.2 F 76 15 131/84 93 10/21/17 07:31 10/21/17 07:31 10/21/17 07:31 10/21/17 07:31 10/21/17 07:31 General appearance: Present: cooperative, A&O X 3, morbidly obese, pleasant, answers questions appropriately - Head Head exam: Present: atraumatic, normocephalic - Eye Eye exam: Present: EOMI, normal appearance, conjuntiva pink, sclera anicteric - ENT ENT exam: Present: mucous membranes moist - Neck Neck exam general surgery: Present: supple, trachea midline - Respiratory Respiratory exam: Present: CTAB. Absent: respiratory distress - Cardiovascular Cardiovascular exam: Present: RRR, +S1, +S2 - GI/Abdominal GI/Abdominal exam: Present: normal bowel sounds, soft. Absent: tenderness - Extremities Exam Extremities exam: Present: warm. Absent: pedal edema, tenderness - Neurological Exam Neurological exam: Present: alert, CN II-XII intact, oriented X3 - Psychiatric Psychiatric exam: Present: normal affect, normal mood - Skin Skin exam: Present: dry, warm Internal Medicine: Result - Labs CBC & Chem 7: 10/19/17 05:33 10/19/17 05:33 - ABG Interpretation ABG results: PT/INR, D-dimer PT 22.5 Seconds (9.4-12.1) H 10/21/17 05:37 D-Dimer < 215 ng/mLFEU (0-500) 10/13/17 11:13 - VTE Documentation of Mechanical Device: Venous foot pump, device Consult Discharge Plan - Plan Instructions: Right Hemispheric Stroke (DC), COPD Exacerbation, Electrolysis Investigator (GEN) Additional Instructions: Take all medications as prescribed Take Coumadin Tu/Thurs/Sat 5mg and Mon/Tue/Fri/Sun 4mg Will need to followup with Coumadin clinic on discharge from [place] Referrals: Maurisio Ward MD [Primary Care Provider] - 10/31/17 1:15 pm <Darcy Maier - Last Filed: 10/21/17 16:12> Date of Encounter: 10/21/17 - Constitutional Vitals: Temp Pulse Resp BP Pulse Ox 98.2 F 81 15 111/70 93 10/21/17 16:07 10/21/17 16:07 10/21/17 16:07 10/21/17 16:07 10/21/17 16:07 Internal Medicine: Result - Labs CBC & Chem 7: 10/19/17 05:33 10/19/17 05:33 - ABG Interpretation ABG results: PT/INR, D-dimer PT 22.5 Seconds (9.4-12.1) H 10/21/17 05:37 D-Dimer < 215 ng/mLFEU (0-500) 10/13/17 11:13 - Attending Attestation I examined this patient and my medical decision-making was reviewed with the Resident Physician Dr. Bueno. I agree with the documented findings, disposition and treatment plan as described except to the extent set forth below. Pt was seen and examined at bed side. She is resting comfortably in chair. Denied any CP / SOB. Denied any weakness . Denied any speech problems.. Feeling lot better today. No events over night Gen: A, A, O x 3 Chest: CTA, No wheezing Heart; S1 S2+ Neuro : COATINGS INSPECTOR 2-12 + A/P 1. Left facial droop, Left side weakness- Mostly TIA r/o CVA.. CTA of Head - negative Cont ASA, Statin Cont anti coag - Coumadin 2. PAF rate controlled INR - 2.4 d/c Lovenox continue Coumadin 3. Physical deconditioning PT / OT recommend swing bed placement Supposedly she had to go to Swing bed y/d, but insurance prior auth was not approved. Hoping it will approve today. Pt is medically stable to d/c to ECF.
[2017-10-21] MEDS: Tiotropium 18 MCG inhalation IH SCH (08:43)
[2017-10-21] MEDS: Budesonide/Formoterol 160/4.5 MDI IH SCH ×2 (08:44→23:05)
[2017-10-21] MEDS: Levalbuterol 1 PUFF INHALER IH SCH ×2 (08:44→23:05)
[2017-10-21] MEDS ORDERED: *HR* Warfarin 5 MG TABLET PO ONE (18:00)
[2017-10-21] MEDS: *HR* Promethazine 25 MG/ML VIAL IVP PRN (20:49)
[2017-10-21] MEDS: *HR* LORazepam 0.5 MG TABLET PO SCH (20:50)
[2017-10-21] MEDS: Insulin DETEMIR 100 UNIT/ML X5UNITS SQ SCH (21:33)
[2017-10-22] MEDS: *HR* OxyCODONE/APAP 7.5/325 TABLET PO PRN ×3 (00:46→17:11)
[2017-10-22] MEDS: Ipratropium/Albuterol Neb 3 ML IH SCH ×4 (03:30→21:30)
[2017-10-22 05:10] LABS: INR 1.9; Prothrombin Time 20.7 Seconds (9.4-12.1)
[2017-10-22] MEDS: Tiotropium 18 MCG inhalation IH SCH (08:14)
[2017-10-22] MEDS: Budesonide/Formoterol 160/4.5 MDI IH SCH ×2 (08:16→21:25)
[2017-10-22] MEDS: Levalbuterol 1 PUFF INHALER IH SCH ×2 (08:16→21:24)
[2017-10-22] MEDS: Aspirin 81 MG TAB.CHEW PO SCH (09:48)
[2017-10-22] MEDS: Insulin LISPRO 300 UNITS/3 ML VIAL SQ SCH ×4 (09:48→20:39)
[2017-10-22] MEDS: Diltiazem CD (24hr) 120 MG CAPSULE PO SCH (09:48)
[2017-10-22] MEDS: Furosemide 20 MG TABLET PO SCH (09:49)
[2017-10-22] MEDS: Nicotine 14 MG PATCH.TD24 TD SCH (09:49)
[2017-10-22] MEDS: Famotidine 20 MG TABLET PO SCH ×2 (09:49→20:17)
[2017-10-22] MEDS: FLUoxetine 20 MG CAPSULE PO SCH ×2 (09:49→20:16)
[2017-10-22] MEDS: Isosorbide MONOnitrate (24 HR) 60 MG TAB.ER.24H PO SCH (09:49)
[2017-10-22] MEDS: hydrOXYzine pamoate 25 MG CAPSULE PO SCH ×3 (09:49→20:18)
[2017-10-22] MEDS: Gabapentin 400 MG CAPSULE PO SCH ×3 (09:49→20:17)
[2017-10-22] MEDS: Metoprolol XL (24 HR) Succ 25 MG TAB.ER.24H PO SCH ×2 (09:50→20:16)
--- NOTE | 2017-10-22 10:55 | Internal Med Progress Note ---
<Tip Bueno - Last Filed: 10/22/17 13:20> Date of Encounter: 10/22/17 Time of Encounter: 10:53 - Assessment and plan (1) Chest pain Current Visit: No Status: Resolved Assessment and plan: June 2017: Stress test showed small size, very mild intensity perfusion defect involving the apex during stress with gated EF 43%. ECHO 10/16/17 showing EF 55%, moderate LV diastolic dysfunction and mild MR, no wall motion abnormalities. No changes from previous No EKG ischemic changes Trop neg Cardiology following - planned for [facility] this admission but due to recent CVA, medical management was recommended. Plan: Recommend medical management and out-pt f/u with her twist tester, Dr. Gregory. Imdur increased. Qualifiers: Chest pain type: unspecified Qualified Code(s): R07.9 - Chest pain, unspecified (2) CVA (cerebral vascular accident) Current Visit: No Status: Acute Assessment and plan: INR 2.1 this morning Today, she has no facial droop or slurred speech. Motor strength deficit 4/5 LUE and LLE. No other deficits found. Plan: Core Measures: ASA, Statin therapy, PT, OT and Imaging neg as above Bridged to Coumadin Discharge planning - Medically stable for discharge to [place]. Pending insurance approval Qualifiers: CVA mechanism: unspecified Qualified Code(s): I63.9 - Cerebral infarction, unspecified (3) COPD exacerbation Current Visit: Yes Status: Resolved Assessment and plan: Resolved Denies any fevers, SOB, wheezing or productive cough Finished azithromycin Finished Prednisone 5 day burst (4) Acute on chronic diastolic (congestive) heart failure Current Visit: Yes Status: Resolved Assessment and plan: Resolved Continue medical management (5) PAF (paroxysmal atrial fibrillation) Current Visit: No Status: Chronic Assessment and plan: Loop recorder showed high atrial rates at times. Cardizem was increased to 240 daily and toprol 25 daily continued. HR stable Bridged to Coumadin (6) Diabetes mellitus type 2 in obese Current Visit: Yes Status: Chronic Assessment and plan: per hx. Hgb A1c 6%. Recent steroid use Levemir 36 units HS. MDSS coverage BS improved from yesterday (7) CAD (coronary artery disease) Current Visit: No Status: Chronic Assessment and plan: 01/2016 LHC at [facility]: proximal LAD 30-40% in-stent restenosis, proximal RCA 30% lesion. Patient also noted to have small diagonal 1 branch ostial 60% lesion being medically managed ECHO 10/16/17 showing EF 55%, moderate LV diastolic dysfunction and mild MR, no wall motion abnormalities. No changes from previous Plan: Cardiology following Cont home ASA, coumadin, statin, BB and Imdur (recently increased per cardiology ) Qualifiers: Coronary Disease-Associated Artery/Lesion type: [place] artery [place] vs. transplanted heart: [place] heart Associated angina: with stable angina Qualified Code(s): I25.118 - Atherosclerotic heart disease of [place] coronary artery with other forms of angina pectoris (8) DVT prophylaxis Current Visit: Yes Status: Acute Assessment and plan: Coumadin - Subjective Interval history: Patient is admitted for chest pain, COPD Ex and found to have CVA Medically stable for discharge to [place]. Pending insurance approval Resting comfortably in chair this morning No concerns overnight Denies any fevers, chills, SOB, cough, abdominal pain, n/v, or GI issues - Constitutional Vitals: Temp Pulse Resp BP Pulse Ox 99.1 F 88 18 139/85 93 10/22/17 07:36 10/22/17 07:36 10/22/17 07:36 10/22/17 07:36 10/22/17 07:36 General appearance: Present: cooperative, A&O X 3, morbidly obese, pleasant, answers questions appropriately - Head Head exam: Present: atraumatic, normocephalic - Eye Eye exam: Present: EOMI, normal appearance, conjuntiva pink, sclera anicteric - ENT ENT exam: Present: mucous membranes moist - Neck Neck exam general surgery: Present: supple, trachea midline - Respiratory Respiratory exam: Present: CTAB. Absent: respiratory distress - Cardiovascular Cardiovascular exam: Present: RRR, +S1, +S2 - GI/Abdominal GI/Abdominal exam: Present: normal bowel sounds, soft. Absent: tenderness - Extremities Exam Extremities exam: Present: warm. Absent: calf tenderness, pedal edema - Neurological Exam Neurological exam: Present: alert, oriented X3, strengths equal and symetr throughout (4/5 LUE and LLE) - Psychiatric Psychiatric exam: Present: normal affect, normal mood - Skin Skin exam: Present: dry, warm. Absent: diaphoretic Internal Medicine: Result - Labs CBC & Chem 7: 01/10/18 05:33 10/19/17 05:33 - ABG Interpretation ABG results: PT/INR, D-dimer PT 20.7 Seconds (9.4-12.1) H 10/22/17 04:07 D-Dimer < 215 ng/mLFEU (0-500) 10/13/17 11:13 - VTE Documentation of Mechanical Device: Venous foot pump, device Consult Discharge Plan - Plan Instructions: Right Hemispheric Stroke (DC), COPD Exacerbation, Drywall Professional (GEN) Additional Instructions: Take all medications as prescribed Take Coumadin Tu/Th/Sat 5mg and Mon/Wed/Fri/Sun 4mg Will need to followup with Coumadin clinic on discharge from [place] Referrals: Maurisio Ward MD [Primary Care Provider] - 10/31/17 1:15 pm <Darcy Maier - Last Filed: 10/22/17 15:43> Date of Encounter: 10/22/17 - Constitutional Vitals: Temp Pulse Resp BP Pulse Ox 98.2 F 84 15 128/81 95 10/22/17 11:07 10/22/17 11:07 10/22/17 11:07 10/22/17 11:07 10/22/17 11:07 Internal Medicine: Result - Labs CBC & Chem 7: 10/19/17 05:33 10/19/17 05:33 - ABG Interpretation ABG results: PT/INR, D-dimer PT 20.7 Seconds (9.4-12.1) H 10/22/17 04:07 D-Dimer < 215 ng/mLFEU (0-500) 10/13/17 11:13 - Attending Attestation I examined this patient and my medical decision-making was reviewed with the Resident Physician Dr. Bueno. I agree with the documented findings, disposition and treatment plan as described except to the extent set forth below. Pt was seen and examined at bed side. She is resting comfortably in chair. Denied any CP / SOB. Denied any weakness . Denied any speech problems.. Feeling lot better today. No events over night..Still waiting on insurance approval to go to Swing bed facility..Pt do not wanted to wait that long..However when I made her she is still wobbly and high risk for falls. So recommend to wait here until her insurance get approved to go for short term rehab Gen: A, A, O x 3 Chest: CTA, No wheezing Heart; S1 S2+ Neuro : REBAR FABRICATOR 2-12 + A/P 1. Left facial droop, Left side weakness- Mostly TIA r/o CVA.. CTA of Head - negative Cont ASA, Statin Cont anti coag - Coumadin 2. PAF rate controlled INR - 1.9 Pharmacy dosing Coumadin 3. Physical deconditioning PT / OT recommend swing bed placement Definitely need to go for short term rehab.. she is still wobbly, and high risk for fall if she goes home.
[2017-10-22] MEDS: Acetaminophen 325 MG TABLET PO PRN (14:03)
[2017-10-22] MEDS ORDERED: SUMAtriptan succinate 25 MG TABLET PO ONE (17:09)
[2017-10-22] MEDS ORDERED: *HR* Warfarin 5 MG TABLET PO ONE (18:00)
[2017-10-22] MEDS: *HR* LORazepam 0.5 MG TABLET PO SCH (20:18)
[2017-10-22] MEDS: Insulin DETEMIR 100 UNIT/ML X5UNITS SQ SCH (20:35)
[2017-10-23] MEDS: *HR* OxyCODONE/APAP 7.5/325 TABLET PO PRN ×3 (00:37→19:17)
[2017-10-23] MEDS: Ipratropium/Albuterol Neb 3 ML IH SCH ×5 (03:48→23:49)
[2017-10-23 06:42] LABS: Prothrombin Time 22.2 Seconds (9.4-12.1)
--- NOTE | 2017-10-23 07:49 | Internal Med Progress Note ---
<Tip Bueno - Last Filed: 10/23/17 10:59> Date of Encounter: 10/23/17 Time of Encounter: 07:47 - Assessment and plan (1) CVA (cerebral vascular accident) Current Visit: No Status: Acute Assessment and plan: INR 2.0 this morning Sshe has no facial droop or slurred speech. Motor strength deficit 4/5 LUE and LLE. No other deficits found. Plan: Core Measures: ASA, Statin therapy, PT, OT Bridged to Coumadin Discharge planning - Medically stable for discharge to [place]. Pending insurance approval Qualifiers: CVA mechanism: unspecified Qualified Code(s): I63.9 - Cerebral infarction, unspecified (2) Chest pain Current Visit: No Status: Resolved Assessment and plan: June 2017: Stress test showed small size, very mild intensity perfusion defect involving the apex during stress with gated EF 43%. ECHO 10/16/17 showing EF 55%, moderate LV diastolic dysfunction and mild MR, no wall motion abnormalities. No changes from previous No EKG ischemic changes Trop neg Cardiology following - planned for [facility] this admission but due to recent CVA, medical management was recommended. Plan: Recommend medical management and out-pt f/u with her metal crafts teacher, Dr. Gregory. Imdur increased. Qualifiers: Chest pain type: unspecified Qualified Code(s): R07.9 - Chest pain, unspecified (3) COPD exacerbation Current Visit: Yes Status: Resolved Assessment and plan: Resolved Denies any fevers, SOB, wheezing or productive cough Finished azithromycin Finished Prednisone 5 day burst (4) Acute on chronic diastolic (congestive) heart failure Current Visit: Yes Status: Resolved Assessment and plan: Resolved Continue medical management (5) PAF (paroxysmal atrial fibrillation) Current Visit: No Status: Chronic Assessment and plan: Loop recorder showed high atrial rates at times. Cardizem was increased to 240 daily and toprol 25 daily continued. HR stable Bridged to Coumadin (6) Diabetes mellitus type 2 in obese Current Visit: Yes Status: Chronic Assessment and plan: per hx. Hgb A1c 6%. Recent steroid use Levemir 36 units HS. MDSS coverage (7) CAD (coronary artery disease) Current Visit: No Status: Chronic Assessment and plan: 01/2016 LHC at [facility]: proximal LAD 30-40% in-stent restenosis, proximal RCA 30% lesion. Patient also noted to have small diagonal 1 branch ostial 60% lesion being medically managed ECHO 10/16/17 showing EF 55%, moderate LV diastolic dysfunction and mild MR, no wall motion abnormalities. No changes from previous Plan: Cont home ASA, coumadin, statin, BB and Imdur (recently increased per cardiology ) Qualifiers: Coronary Disease-Associated Artery/Lesion type: [place] artery [place] vs. transplanted heart: [place] heart Associated angina: with stable angina Qualified Code(s): I25.118 - Atherosclerotic heart disease of [place] coronary artery with other forms of angina pectoris (8) DVT prophylaxis Current Visit: Yes Status: Acute Assessment and plan: Coumadin - Subjective Interval history: Patient is admitted for chest pain, COPD Ex and found to have CVA Medically stable for discharge to [place]. Pending insurance approval Resting comfortably in bed this morning No concerns overnight No new complaints She reports that she called [employer] and states they are working on her case Denies any fevers, chills, SOB, cough, abdominal pain, n/v, or GI issues - Constitutional Vitals: Temp Pulse Resp BP Pulse Ox 98.7 F 80 16 119/68 98 10/23/17 07:34 10/23/17 07:34 10/23/17 07:34 10/23/17 07:34 10/23/17 07:34 General appearance: Present: cooperative, A&O X 3, morbidly obese, pleasant, answers questions appropriately - Head Head exam: Present: atraumatic, normocephalic - Eye Eye exam: Present: EOMI, normal appearance, conjuntiva pink, sclera anicteric - ENT ENT exam: Present: mucous membranes moist - Neck Neck exam general surgery: Present: supple, trachea midline - Respiratory Respiratory exam: Present: CTAB. Absent: respiratory distress - Cardiovascular Cardiovascular exam: Present: RRR, +S1, +S2 - GI/Abdominal GI/Abdominal exam: Present: normal bowel sounds, soft. Absent: tenderness - Extremities Exam Extremities exam: Present: warm. Absent: pedal edema, tenderness - Neurological Exam Neurological exam: Present: abnormal gait (weak and unsteady), alert, oriented X3. Absent: strengths equal and symetr throughout (4/5 LLE and LUE) - Psychiatric Psychiatric exam: Present: normal affect, normal mood - Skin Skin exam: Present: dry, warm Internal Medicine: Result - Labs CBC & Chem 7: 10/19/17 05:33 10/19/17 05:33 - ABG Interpretation ABG results: PT/INR, D-dimer PT 22.2 Seconds (9.4-12.1) H 10/23/17 06:11 D-Dimer < 215 ng/mLFEU (0-500) 10/13/17 11:13 - VTE Documentation of Mechanical Device: Venous foot pump, device Consult Discharge Plan - Plan Instructions: Right Hemispheric Stroke (DC), COPD Exacerbation, Body Recall Instructor (GEN) Additional Instructions: Take all medications as prescribed Take Coumadin Tu/Th/Sat 5mg and Mon/Tue/Fri/Sun 4mg Will need to followup with Coumadin clinic on discharge from [place] Referrals: Maurisio Ward MD [Primary Care Provider] - 10/31/17 1:15 pm <Darcy Maier - Last Filed: 10/23/17 16:50> Date of Encounter: 10/23/17 - Constitutional Vitals: Temp Pulse Resp BP Pulse Ox 98.2 F 75 16 116/64 95 10/23/17 15:34 10/23/17 15:34 10/23/17 15:34 10/23/17 15:34 10/23/17 15:34 Internal Medicine: Result - Labs CBC & Chem 7: 10/19/17 05:33 10/19/17 05:33 - ABG Interpretation ABG results: PT/INR, D-dimer PT 22.2 Seconds (9.4-12.1) H 10/23/17 06:11 D-Dimer < 215 ng/mLFEU (0-500) 10/13/17 11:13 - Attending Attestation I examined this patient and my medical decision-making was reviewed with the Resident Physician Dr. Bueno. I agree with the documented findings, disposition and treatment plan as described except to the extent set forth below. Pt was seen and examined at bed side. She is resting comfortably in chair. Denied any CP / SOB. Denied any weakness . Denied any speech problems.. Feeling lot better today. No events over night..Still waiting on insurance approval to go to Swing bed facility..Pt do not wanted to wait that long..However when I made her she is still wobbly and high risk for falls. So recommend to wait here until her insurance get approved to go for short term rehab..No events over night Gen: A, A, O x 3 Chest: CTA, No wheezing Heart; S1 S2+ Neuro : MARKETING STRATEGY MANAGER 2-12 + A/P 1. Left facial droop, Left side weakness- Mostly TIA r/o CVA.. CTA of Head - negative Cont ASA, Statin Cont anti coag - Coumadin 2. PAF rate controlled INR - 2.0 Pharmacy dosing Coumadin 3. Chronic migraine headaches Imitrex PRN 4. Physical deconditioning PT / OT recommend swing bed placement Definitely need to go for short term rehab.. she is still wobbly, and high risk for fall if she goes home.
[2017-10-23] MEDS: Insulin LISPRO 300 UNITS/3 ML VIAL SQ SCH ×4 (09:31→23:12)
[2017-10-23] MEDS: Aspirin 81 MG TAB.CHEW PO SCH (09:42)
[2017-10-23] MEDS: hydrOXYzine pamoate 25 MG CAPSULE PO SCH ×3 (09:43→19:42)
[2017-10-23] MEDS: Isosorbide MONOnitrate (24 HR) 60 MG TAB.ER.24H PO SCH (09:43)
[2017-10-23] MEDS: Diltiazem CD (24hr) 120 MG CAPSULE PO SCH (09:43)
[2017-10-23] MEDS: Furosemide 20 MG TABLET PO SCH (09:43)
[2017-10-23] MEDS: Gabapentin 400 MG CAPSULE PO SCH ×3 (09:43→19:42)
[2017-10-23] MEDS: Nicotine 14 MG PATCH.TD24 TD SCH (09:43)
[2017-10-23] MEDS: Metoprolol XL (24 HR) Succ 25 MG TAB.ER.24H PO SCH ×2 (09:44→19:42)
[2017-10-23] MEDS: Famotidine 20 MG TABLET PO SCH ×2 (09:44→19:43)
[2017-10-23] MEDS: FLUoxetine 20 MG CAPSULE PO SCH ×2 (09:44→19:42)
[2017-10-23] MEDS: Levalbuterol 1 PUFF INHALER IH SCH ×2 (10:40→22:04)
[2017-10-23] MEDS: Budesonide/Formoterol 160/4.5 MDI IH SCH ×2 (10:42→22:04)
[2017-10-23] MEDS: Tiotropium 18 MCG inhalation IH SCH (10:43)
[2017-10-23] MEDS ORDERED: *HR* Warfarin 5 MG TABLET PO ONE (18:00)
[2017-10-23] MEDS: Insulin DETEMIR 100 UNIT/ML X5UNITS SQ SCH (19:43)
[2017-10-23] MEDS: *HR* LORazepam 0.5 MG TABLET PO SCH (19:43)
[2017-10-23] MEDS ORDERED: SUMAtriptan succinate 25 MG TABLET PO ONE (21:00)
[2017-10-24] MEDS: *HR* OxyCODONE/APAP 7.5/325 TABLET PO PRN ×2 (04:40→09:03)
[2017-10-24 05:18] LABS: Prothrombin Time 22.4 Seconds (9.4-12.1)
[2017-10-24 07:26] VITALS: BP 134/85
[2017-10-24] MEDS: Insulin LISPRO 300 UNITS/3 ML VIAL SQ SCH (09:00)
[2017-10-24] MEDS: Diltiazem CD (24hr) 120 MG CAPSULE PO SCH (09:01)
[2017-10-24] MEDS: Gabapentin 400 MG CAPSULE PO SCH (09:02)
[2017-10-24] MEDS: hydrOXYzine pamoate 25 MG CAPSULE PO SCH (09:02)
[2017-10-24] MEDS: Isosorbide MONOnitrate (24 HR) 60 MG TAB.ER.24H PO SCH (09:02)
[2017-10-24] MEDS: Aspirin 81 MG TAB.CHEW PO SCH (09:02)
[2017-10-24] MEDS: Metoprolol XL (24 HR) Succ 25 MG TAB.ER.24H PO SCH (09:03)
[2017-10-24] MEDS: FLUoxetine 20 MG CAPSULE PO SCH (09:03)
[2017-10-24] MEDS: Furosemide 20 MG TABLET PO SCH (09:03)
[2017-10-24] MEDS: Famotidine 20 MG TABLET PO SCH (09:03)
[2017-10-24] MEDS: Nicotine 14 MG PATCH.TD24 TD SCH (09:04)
[2017-10-24] MEDS: Budesonide/Formoterol 160/4.5 MDI IH SCH (10:14)
[2017-10-24] MEDS: Levalbuterol 1 PUFF INHALER IH SCH (10:14)
[2017-10-24] MEDS: Tiotropium 18 MCG inhalation IH SCH (10:15)
[2017-10-24] MEDS: Ipratropium/Albuterol Neb 3 ML IH SCH (10:17)
--- NOTE | 2017-10-24 10:22 | Discharge Summary ---
Date of Encounter: 10/24/17 Time of Encounter: 10:15 - Discharge Diagnosis (1) Acute on chronic diastolic (congestive) heart failure Priority: Primary Status: Resolved (2) Acute exacerbation of chronic obstructive pulmonary disease Priority: Primary Status: Acute (3) TIA (transient ischemic attack) Priority: Secondary Status: Suspected Comments: with left facial droop / left side weakness -- improved ruled out CVA Unable to do MRI of Brain since she has bladder stimulator Qualifiers: Transient cerebral ischemia type: unspecified Qualified Code(s): G45.9 - Transient cerebral ischemic attack, unspecified (4) Diabetes mellitus type 2 in obese Priority: Secondary Status: Chronic (5) PAF (paroxysmal atrial fibrillation) Priority: Secondary Status: Chronic (6) Complicated migraine Priority: Secondary Status: Acute - Discharge Medications Home Medications: Budesonide/Formoterol 160/4.5 [Symbicort 160/4.5] 2 puff IH BIDR 12/30/16 [ History] Insulin ASPART [NovoLOG] 2 - 10 unit SQ TIDWM PRN 12/30/16 [History] Insulin Glargine,Hum.rec.anlog [Lantus Solostar] 36 unit SQ HS 12/30/16 [History ] Nitroglycerin [Nitrostat] 0.4 mg SL Q5M PRN 12/30/16 [History] Ranitidine HCl [Acid Statistical Machine Mechanic] 150 mg PO BID 12/30/16 [History] Tiotropium [Spiriva] 18 mcg IH DAILY 12/30/16 [History] Calcium Polycarbophil [Fibercon] 625 mg PO DAILY 03/15/17 [History] Oxygen 2 l NS HS 03/15/17 [History] LORazepam [Ativan] 0.5 mg PO HS #30 tablet 06/13/17 [Rx] hydrOXYzine pamoate [HydrOXYzine Pamoate] 50 mg PO TID #90 06/20/17 [Rx] Atorvastatin [Lipitor] 40 mg PO HS 07/03/17 [History] Quetiapine Fumarate [Seroquel] 300 mg PO HS 07/20/17 [History] Aspirin 81 mg PO DAILY #30 tab.chew 07/22/17 [Rx] Gabapentin [Neurontin] 400 mg PO TID 08/29/17 [History] Meclizine [Antivert] 12.5 mg PO BID 08/29/17 [History] Buspirone HCl [Buspar] 10 mg PO BID 09/14/17 [History] Diclofenac Sodium [Voltaren] 75 mg PO BID 09/14/17 [History] FLUoxetine HCl [Prozac] 40 mg PO BID 09/14/17 [History] Furosemide [Lasix] 20 - 40 mg PO DAILY 10/13/17 [History] Ipratropium/Albuterol Neb [Duoneb] 3 ml IH [id number] PRN 10/13/17 [History] Potassium Chloride [K-Tab ER] 10 meq PO DAILY 10/13/17 [History] Prochlorperazine Maleate [Compazine] 10 mg PO Q8HR PRN 10/13/17 [History] predniSONE [PredniSONE] See Taper PO DAILY 10/13/17 [History] Diltiazem CD (24hr) [Cardizem CD] 240 mg PO DAILY cap.er.24h 10/20/17 [Rx] Isosorbide MONOnitrate (24 HR) [Imdur] 120 mg PO DAILY tab.er.24h 10/20/17 [Rx] Metoprolol XL (24 HR) Succ [Toprol Xl] 25 mg PO BID tab.er.24h 10/20/17 [Rx] Warfarin [Coumadin] 4 mg PO SUMOWEFR #0 10/20/17 [Rx] Warfarin [Coumadin] 5 mg PO TUTHSA #0 10/20/17 [Rx] Allergies/Adverse Reactions: 3 Allergy/AdvReac Type Severity Reaction Status Date / Time baclofen Allergy Itching Verified 09/25/17 18:02 ciprofloxacin [From Cipro] Allergy Hives Verified 09/25/17 18:02 latex Allergy Rash Verified 09/25/17 18:02 Penicillins Allergy Hives Verified 09/25/17 18:02 prednisone Allergy Itching Verified 09/25/17 18:02 sulfamethoxazole Allergy Hives Verified 09/25/17 18:02 [From Bactrim] trimethoprim [From Bactrim] Allergy Hives Verified 09/25/17 18:02 cefdinir AdvReac Vomiting Verified 09/25/17 18:02 Oxycodone AdvReac Hallucinati Verified 09/25/17 18:02 ng Date of admission: 10/18/17 19:21 Primary care physician: Maurisio Ward MD - Patient Status Disposition: Transfer Hospital Swing Bed Condition: Good - Discharge Instructions Instructions: Right Hemispheric Stroke (DC), COPD Exacerbation, 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 Strong is a 52 year old female with a past medical history of arthritis, asthma, atrial fibrillation anti-coagulated on Coumadin, COPD, CAD, TIA 3 with last occurrence in June 2017, diabetes with insulin dependency, GERD, HTN, migraine, [place] 3 with last occurrence in 2009, PAD reports from the ED with chief complaint shortness of breath and dyspnea for several days. On arrival, CXR neg, WBC 12.8, INR 1.2 and normal kidney function. She was admitted for COPD exacerbation and started on steroids, nebulizer treatments and azithromycin. She completed 4 days of antibiotics with 5 days of steroids and exacerbation resolved. She was also in mild diastolic CHF exacerbation with improved with IV diuresis. On 10/15/17 she started experiencing slurred speech, left sided weakness and left facial droop. CT head ruled out hemorrhagic stroke. Telemedicine with [facility] was utilized and no TPA given with patient on Coumadin. CTA of head and neck were negative. Echocardiogram was negative for thrombus. Core measures were continued with ASA, Statin therapy, PT and OT. Neuro consulted and recommended group home anti-coagulation. Heparin drip was started initially but was transitioned to Lovenox to bridge to Coumadin. INR improved to 2.0 today. PT and OT recommended swing bed/ inpatient rehab. All her discharge paper work finished on 10/19/16 however since her insurance prior auth got delayed she waited till today to go to Swing bed. No events happened in last 4-5 days. Pt is tolerating PO intake well. Denied any CP / SOB. - Time Spent with Patient Total time spent providing and/or coordinating discharge services: - Constitutional Vitals: Temp Pulse Resp BP Pulse Ox 98.1 F 75 20 134/85 94 10/24/17 07:21 10/24/17 07:21 10/24/17 07:21 10/24/17 07:21 10/24/17 07:21 General appearance: Present: cooperative, A&O X 3, morbidly obese, pleasant, answers questions appropriately - Head Head exam: Present: atraumatic, normal inspection - Neck Neck exam general surgery: Present: supple - Respiratory Respiratory exam: Absent: respiratory distress, rhonchi, wheezes - Cardiovascular Cardiovascular exam: Present: +S1, +S2 - GI/Abdominal GI/Abdominal exam: Present: normal bowel sounds, soft. Absent: rebound, rigid, tenderness - Extremities Exam Extremities exam: Absent: calf tenderness, pedal edema, tenderness - Back Exam Back exam: Absent: CVA tenderness (L), CVA tenderness (R) - Neurological Exam Neurological exam: Present: alert, oriented X3 - VTE Documentation of Mechanical Device: Venous foot pump, device
--- NOTE | 2017-10-24 10:32 | Internal Med Progress Note ---
Date of Encounter: 10/24/17 Time of Encounter: 10:30 - Assessment and plan (1) TIA (transient ischemic attack) Current Visit: No Status: Suspected Assessment and plan: Left facial droop- Improved CTA of Head - negative for CVA cont ASA + Statin + Coumadin Medially stable to d/c to Swing bed today Qualifiers: Transient cerebral ischemia type: unspecified Qualified Code(s): G45.9 - Transient cerebral ischemic attack, unspecified (2) Acute on chronic diastolic (congestive) heart failure Current Visit: Yes Status: Resolved Assessment and plan: Resolved Continue medical management (3) Acute exacerbation of chronic obstructive pulmonary disease Current Visit: No Status: Acute Assessment and plan: Improved cont home regimen (4) Diabetes mellitus type 2 in obese Current Visit: Yes Status: Chronic Assessment and plan: per hx. Hgb A1c 6%. Recent steroid use Levemir 36 units HS. MDSS coverage (5) PAF (paroxysmal atrial fibrillation) Current Visit: No Status: Chronic Assessment and plan: Loop recorder showed high atrial rates at times. Cardizem was increased to 240 daily and toprol 25 daily continued. HR stable Bridged to Coumadin (6) Complicated migraine Current Visit: No Status: Acute Assessment and plan: Imitrex PRN - Subjective Interval history: Ms. Strong is a 52 year old female with a past medical history of arthritis, asthma, atrial fibrillation anti-coagulated on Coumadin, COPD, CAD, TIA 3 with last occurrence in June 2017, diabetes with insulin dependency, GERD, HTN, migraine, [place] 3 with last occurrence in 2009, PAD reports from the ED with chief complaint shortness of breath and dyspnea for several days. On arrival, CXR neg, WBC 12.8, INR 1.2 and normal kidney function. She was admitted for COPD exacerbation and started on steroids, nebulizer treatments and azithromycin. Pt has been doing well from last few days. No events over night - Constitutional Vitals: Temp Pulse Resp BP Pulse Ox 98.1 F 75 20 134/85 94 10/24/17 07:21 10/24/17 07:21 10/24/17 07:21 10/24/17 07:21 10/24/17 07:21 General appearance: Present: cooperative, A&O X 3, morbidly obese, pleasant, answers questions appropriately - Head Head exam: Present: atraumatic, normal inspection - Neck Neck exam general surgery: Present: supple - Respiratory Respiratory exam: Present: decreased breath sounds. Absent: rales, respiratory distress, rhonchi, wheezes - Cardiovascular Cardiovascular exam: Present: RRR, +S1, +S2. Absent: tachycardia - GI/Abdominal GI/Abdominal exam: Present: soft. Absent: rebound, rigid, tenderness - Extremities Exam Extremities exam: Absent: calf tenderness, pedal edema, tenderness - Back Exam Back exam: Absent: CVA tenderness (L), CVA tenderness (R) - Neurological Exam Neurological exam: Present: alert, CN II-XII intact, oriented X3 - Psychiatric Psychiatric exam: Present: normal affect, normal mood Internal Medicine: Result - Labs CBC & Chem 7: 10/19/17 05:33 10/19/17 05:33 - ABG Interpretation ABG results: PT/INR, D-dimer PT 22.4 Seconds (9.4-12.1) H 10/24/17 04:16 D-Dimer < 215 ng/mLFEU (0-500) 10/13/17 11:13 - VTE Documentation of Mechanical Device: Venous foot pump, device Consult Discharge Plan - Plan Instructions: Right Hemispheric Stroke (DC), COPD Exacerbation, [place] (GEN) Additional Instructions: Take all medications as prescribed Take Coumadin Tues/Thurs/Sat 5mg and Mon/Tue/Fri/Sun 4mg Will need to followup with Coumadin clinic on discharge from [place] Referrals: Maurisio Ward MD [Primary Care Provider] - 10/31/17 1:15 pm
[2017-10-24] MEDS ORDERED: *HR* Warfarin 3 MG TABLET PO ONE (18:00)
== END 2017-10-24 11:50 | disposition other institution (70) | DRG 291 ==
LOC: 3NENU 10:34 → EMEROO 10:34 → 3NENU 15:49 → SUATTDRO 10-18 19:21 → 3BNU 10-19 11:51
PROVIDERS: ADMIT Pediatrics; ATTEND Family Medicine

== ENCOUNTER 2017-10-31 14:03 | Observation (INO) ==
--- NOTE | 2017-10-31 14:25 | Emergency Department Note ---
Disposition Clinical Impression: Stroke Qualifiers: CVA mechanism: unspecified Qualified Code(s): I63.9 - Cerebral infarction, unspecified Disposition: Admitted As Inpatient Condition: Fair Neuro HPI - General Chief Complaint: ED Neuro Symptoms/Deficit Stated Complaint: Neuro Symptoms Time Seen by Provider: 10/31/17 14:20 Source: patient, family Limitations: language barrier, altered mental status, physical limitation Nursing Notes Reviewed: Yes Vital Signs Reviewed: Yes - History of Present Illness HPI Narrative: Patient presents today for evaluation of strokelike symptoms. The patient has a previous history of multiple TIAs. Patient's previous TIA that underwent workup was approximately one month ago. Patient states that she experienced similar symptoms last night. Resolved after approximately an hour. The patient went to the doctor's for a follow-up appointment and upon presentation to the office she developed these symptoms. These symptoms onset was approximately 1315 p.m. today. Symptoms include dysarthria as well as numbness and weakness to the left upper and lower extremities. Patient does not have facial droop but does experience some paresthesias to the left side of face. Stroke alert was activated and the patient has been taken to CT. . Patient also has comorbidities of diabetes as well as atrial fibrillation and is on Coumadin. INR is pending. - Related Data Home Medications: Home Medications Medication Instructions Recorded Confirmed Budesonide/Formoterol 160/4.5 2 puff IH BIDR 12/30/16 10/31/17 [Symbicort 160/4.5] Insulin ASPART [NovoLOG] 2 - 10 unit SQ TIDWM PRN 12/30/16 10/31/17 Insulin Glargine,Hum.rec.anlog 36 unit SQ HS 12/30/16 10/31/17 [Lantus Solostar] Nitroglycerin [Nitrostat] 0.4 mg SL Q5M PRN 12/30/16 10/31/17 Ranitidine HCl [Acid Solution Mixer] 150 mg PO BID 12/30/16 10/31/17 Tiotropium [Spiriva] 18 mcg IH DAILY 12/30/16 10/31/17 Calcium Polycarbophil [Fibercon] 625 mg PO DAILY 03/15/17 10/31/17 Oxygen 2 l NS HS 03/15/17 10/31/17 Atorvastatin [Lipitor] 40 mg PO HS 07/03/17 10/31/17 Quetiapine Fumarate [Seroquel] 300 mg PO HS 07/20/17 10/31/17 Gabapentin [Neurontin] 400 mg PO TID 08/29/17 10/31/17 Meclizine [Antivert] 12.5 mg PO BID 08/29/17 10/31/17 Buspirone HCl [Buspar] 10 mg PO BID 09/14/17 10/31/17 Diclofenac Sodium [Voltaren] 75 mg PO BID 09/14/17 10/31/17 FLUoxetine HCl [Prozac] 40 mg PO BID 09/14/17 10/31/17 Furosemide [Lasix] 20 - 40 mg PO DAILY 10/13/17 10/31/17 Ipratropium/Albuterol Neb [Duoneb] 3 ml IH [id number] PRN 10/13/17 10/31/17 Potassium Chloride [K-Tab ER] 10 meq PO DAILY 10/13/17 10/31/17 Prochlorperazine Maleate 10 mg PO Q8HR PRN 10/13/17 10/31/17 [Compazine] Melatonin 10 mg PO HS 10/31/17 10/31/17 Warfarin [Coumadin] 3 mg PO SUMOWEFR 10/31/17 10/31/17 Warfarin [Coumadin] 4.5 mg PO TUTHSA 10/31/17 10/31/17 Previous Rx's Medication Instructions Recorded LORazepam [Ativan] 0.5 mg PO HS #30 tablet 06/13/17 hydrOXYzine pamoate [HydrOXYzine 50 mg PO TID #90 06/20/17 Pamoate] Aspirin 81 mg PO DAILY #30 tab.chew 07/22/17 Diltiazem CD (24hr) [Cardizem CD] 240 mg PO DAILY cap.er.24h 10/20/17 Isosorbide MONOnitrate (24 HR) 120 mg PO DAILY tab.er.24h 10/20/17 [Imdur] Metoprolol XL (24 HR) Succ [Toprol 25 mg PO BID tab.er.24h 10/20/17 Xl] Allergies/Adverse Reactions: Allergies Allergy/AdvReac Type Severity Reaction Status Date / Time baclofen Allergy Itching Verified 09/25/17 18:02 ciprofloxacin [From Cipro] Allergy Hives Verified 09/25/17 18:02 latex Allergy Rash Verified 09/25/17 18:02 Penicillins Allergy Hives Verified 09/25/17 18:02 prednisone Allergy Itching Verified 09/25/17 18:02 sulfamethoxazole Allergy Hives Verified 09/25/17 18:02 [From Bactrim] trimethoprim [From Bactrim] Allergy Hives Verified 09/25/17 18:02 cefdinir AdvReac Vomiting Verified 09/25/17 18:02 Oxycodone AdvReac Hallucinati Verified 09/25/17 18:02 ng Limitations: ROS unobtainable due to patients medical condition (Secondary dysarthria) Past Medical History - Past Medical History Medical history: Reports: arthritis, asthma, atrial fibrillation, COPD, coronary artery disease, CVA, diabetes, GERD, hyperlipidemia, hypertension, migraine, myocardial infarction, peripheral artery disease, TIA, other Surgical history: Reports: angioplasty/stent, appendectomy, cholecystectomy, knee replacement Psychiatric history: Reports: anxiety, bipolar, depression, prior suicide attempt, previous psychiatric hospitalization [employer] history: Reports: bilateral 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 - Social History Smoking Status: Current every day smoker Smokeless Tobacco Status: No Alcohol use: Reports: none Drug use: Reports: none Physical Exam - General Limitations: language barrier, altered mental status, physical limitation General appearance: alert, in no apparent distress - Head Head exam: atraumatic, normocephalic - Eye Eye exam: Present: normal appearance, PERRL - ENT ENT exam: normal exam, normal oropharynx - Neck Neck exam: Present: normal inspection, full ROM - Chest Chest inspection: Present: normal inspection, symmetric chest wall rise - Respiratory Respiratory exam: Present: normal lung sounds bilaterally. Absent: respiratory distress - Cardiovascular Cardiovascular exam: Present: regular rate, normal rhythm - Abdominal Exam Abdominal exam: Present: soft, Non-Tender - Extremities Exam Extremities exam: Present: normal inspection - Neurological Exam Neurological exam: Present: alert - Expanded Neurological Exam Speech: Present: expressive aphasia Cranial nerves: EOM function (II, III, IV, ): Normal, facial sensation (V): Abnormal Left, facial palsy (VII): Abnormal Left, gag reflex (IX): Normal, spinal accessory function (XI): Abnormal Left, tongue deviation (XII): Normal Cerebellar function: finger to nose: Abnormal Left, heel to zheng: Abnormal Left Motor strength - LUE: 3/5 Motor strength - RUE: 5/5 Motor strength - LLE: 3/5 Motor strength - RLE: 5/5 Sensory exam upper extremity: light touch: Abnormal Left Sensory exam lower extremity: light touch: Abnormal Left Coma Scale Eye Opening: Spontaneous Coma Scale Motor Response: Obeys Commands Coma Scale Verbal Response: Incomprehensible Coma Scale Total: 12 - Psychiatric Psychiatric exam: Present: flat affect - Skin Skin exam: Present: warm, dry Course - Reevaluation(s) Reevaluation #1: Discussed with patient transferred neurologist request. Patient states nobody has been doing anything for her and she wants to leave AMA. This was further discussed with the patient letting her know that neurology would see her she states. The patient states that as long as she will be evaluated here she will stay but she does not want to go to [facility]. - Consultations Consultation #1: Discussed with [facility] neurology. Does not recommend TPA at this time. Patient has elevated INR as well as recent TIA. Patient is excluded from TPA. Patient was offered admission to [facility] but refused. Consultation #2: Discussed with attending in neurology. Patient will be better served at [facility]. He recommends discussion with patient in order to see if she will accept transfer. Patient will be further evaluated on the floor if admitted. Vital Signs Temperature 98.4 F 10/31/17 14:07 Pulse Rate 66 10/31/17 14:07 Respiratory Rate 18 10/31/17 14:07 Blood Pressure 117/68 10/31/17 14:07 O2 Sat by Pulse Oximetry 93 10/31/17 14:07 Temperature 98.2 F 10/31/17 19:11 Pulse Rate 68 10/31/17 19:11 Respiratory Rate 15 10/31/17 19:11 Blood Pressure 130/73 10/31/17 19:11 O2 Sat by Pulse Oximetry 96 10/31/17 19:11 Oxygen Delivery Oxygen Delivery Room Air Neuro Symptoms/Deficit - Lab Data Result diagrams: 10/31/17 14:18 10/31/17 14:18 Lab Results 10/31/17 10/31/17 10/31/17 Range/Units 14:18 14:18 14:18 WBC 7.0 (4.3-11.1) K/mcL RBC 3.99 (3.82-4.97) M/mcL Hgb 11.7 (11.5-15.4) g/dL Hct 36.3 (35.3-44.9) % MCV 91.0 (83.0-100.0) fL MCH 29.3 (28.0-33.3) pg MCHC 32.2 (31.6-35.5) g/dL RDW 14.2 (11.5-14.5) % Plt Count 223 (140-400) K/mcL MPV 9.0 L (9.4-12.4) fL Immature Gran % 4.2 H (0-4) % Seg Neutrophils % 55.3 % Lymphocytes % 30.1 % Monocytes % 8.2 % Eosinophils % 1.6 % Basophils % 0.6 % Neutrophils # 3.9 (1.6-8.9) K/mcL Lymphocytes # 2.1 (0.6-4.6) K/mcL Monocytes # 0.6 (0.0-1.3) K/mcL Eosinophils # 0.1 (0.0-0.6) K/mcL Basophils # 0.0 (0.0-0.2) K/mcL Nucleated RBCs/100 WBC 0.3 H (0) /100 WBC PT 23.5 H (9.4-12.1) Seconds INR 2.1 APTT 38.1 H (26.0-36.0) Seconds Sodium 142 (136-145) mEq/L Potassium 4.1 (3.5-5.1) mEq/L Chloride 108 H (98-107) mEq/L Carbon Dioxide 26 (23-29) mEq/L BUN 15 (6-20) mg/dL Creatinine 0.67 (0.60-1.20) mg/dL Est GFR ( Amer) > 60 (> 60) Est GFR (Non-Af Amer) > 60 (> 60) BUN/Creatinine Ratio 22 (6-26) Glucose 125 H (70-105) mg/dL Calculated Osmolality 296 (280-300) Calcium 8.5 L (8.6-10.3) mg/dL Troponin I (< 0.04) ng/mL 10/31/17 Range/Units 14:18 WBC (4.3-11.1) K/mcL RBC (3.82-4.97) M/mcL Hgb (11.5-15.4) g/dL Hct (35.3-44.9) % MCV (83.0-100.0) fL MCH (28.0-33.3) pg MCHC (31.6-35.5) g/dL RDW (11.5-14.5) % Plt Count (140-400) K/mcL MPV (9.4-12.4) fL Immature Gran % (0-4) % Seg Neutrophils % % Lymphocytes % % Monocytes % % Eosinophils % % Basophils % % Neutrophils # (1.6-8.9) K/mcL Lymphocytes # (0.6-4.6) K/mcL Monocytes # (0.0-1.3) K/mcL Eosinophils # (0.0-0.6) K/mcL Basophils # (0.0-0.2) K/mcL Nucleated RBCs/100 WBC (0) /100 WBC PT (9.4-12.1) Seconds INR APTT (26.0-36.0) Seconds Sodium (136-145) mEq/L Potassium (3.5-5.1) mEq/L Chloride (98-107) mEq/L Carbon Dioxide (23-29) mEq/L BUN (6-20) mg/dL Creatinine (0.60-1.20) mg/dL Est GFR ( Amer) (> 60) Est GFR (Non-Af Amer) (> 60) BUN/Creatinine Ratio (6-26) Glucose (70-105) mg/dL Calculated Osmolality (280-300) Calcium (8.6-10.3) mg/dL Troponin I < 0.03 (< 0.04) ng/mL TPA Checklist - LKW: 3-4.5 hrs Add. Warnings/Precautions Patient/family understanding: The patient/family members have been counseled and understood the risk, benefit , and alternatives of treatment.
[2017-10-31 14:30] LABS: Basophils % 0.6 %; Eosinophils # 0.1 K/mcL (0.0-0.6); Eosinophils % 1.6 %; Hematocrit 36.3 % (35.3-44.9); Hemoglobin 11.7 g/dL (11.5-15.4); Immature Granulocytes % 4.2 % (0-4); Lymphocytes # 2.1 K/mcL (0.6-4.6); Lymphocytes % 30.1 %; Mean Corpuscular HGB Conc 32.2 g/dL (31.6-35.5); Mean Corpuscular Hemoglobin 29.3 pg (28.0-33.3); Monocytes # 0.6 K/mcL (0.0-1.3); Monocytes % 8.2 %; Neutrophils # 3.9 K/mcL (1.6-8.9); Nucleated Red Blood Cells 0.3 /100 WBC (0); Platelet Count 223 K/mcL (140-400); Red Blood Count 3.99 M/mcL (3.82-4.97); Red Cell Distribution Width 14.2 % (11.5-14.5); Segmented Neutrophils % 55.3 %
[2017-10-31 14:39] LABS: INR 2.1; Prothrombin Time 23.5 Seconds (9.4-12.1)
[2017-10-31 14:43] LABS: Activated Partial Thrombo Time 38.1 Seconds (26.0-36.0)
[2017-10-31 14:44] LABS: BUN/Creatinine Ratio 22 (6-26); Blood Urea Nitrogen 15 mg/dL (6-20); Calcium 8.5 mg/dL (8.6-10.3); Carbon Dioxide 26 mEq/L (23-29); Chloride 108 mEq/L (98-107); Glucose 125 mg/dL (70-105); Osmolality,Calculated 296 (280-300); Potassium 4.1 mEq/L (3.5-5.1); Sodium 142 mEq/L (136-145); eGFR For African Americans > 60 (> 60); eGFR For Non-African Americans > 60 (> 60)
--- NOTE | 2017-10-31 14:49 | Emergency Department Note ---
START Narrative - START START: I examined this patient and my medical decision-making was reviewed with the Resident Physician. I agree with the documented findings, disposition and treatment plan as described except to the extent set forth below. 52-year-old female presents emergency room for possible strokelike symptoms. Happened around 1:15 to 1:30 PM today. She was at her doctor's office for a follow-up appointment with her primary care doctor when she suddenly developed left sided arm and leg weakness as well as slurred speech. She is a history of previous CVA/TIA at the beginning of the month. All of her imaging at that time was negative. She had a CTA head and neck that was essentially nonacute. There is no evidence of any obvious aneurysm. She had an episode last evening approximately one hour lasting of slurred speech as well. She is on Coumadin secondary to atrial fibrillation. They were not sure at that time a 1 month ago that she had thrown a clot from her A. fib. She is compliant with her Coumadin as her INR is 2.1. We have consulate with [facility] neurology. They are evaluating her via tele-stroke Her CT of the head interpreted by radiology here is negative. No evidence of any intracranial hemorrhage. I have consulate again with [facility] neurology as well as radiology here. Disposition to follow based on their recommendations. Critical care time of 35 minutes spent in medical management of CVA symptoms as well as consultation with subspecialty neurology and radiology.
[2017-10-31] MEDS ORDERED: Acetaminophen 325 MG TABLET PO PRN (16:56)
[2017-10-31] MEDS ORDERED: Naloxone 0.4 MG/ML INJ IVP PRN (16:56)
[2017-10-31] MEDS ORDERED: Ondansetron 4 MG/2 ML VIAL IVP PRN (16:56)
--- NOTE | 2017-10-31 17:22 | Internal Med History&Physical ---
Date of Encounter: 10/31/17 Time of Encounter: 17:14 Assessment and Plan (1) TIA (transient ischemic attack) Current visit: Yes Status: Acute 1 she has history of CVA TIAs in the past recently admitted to this facility earlier this month and had a complete stroke workup at that time CTA head and neck was essentially -her with some concerns that she may possibly thrown a clot from her A. fib she is on Coumadin and is therapeutic present 2.1. ER has consulted neurology and spoke with Dr. Galvez. 2 we will continue with aspirin and statins-we will check lipid profile 3 NIHSS assessment 4 bedside swallow eval per nursing staff 5 daily INR 6 continue with blood pressure control systolic around 160-180 7 monitor glucose closely 8 continuous cardiac monitoring Qualifiers: Transient cerebral ischemia type: unspecified Qualified Code(s): G45.9 - Transient cerebral ischemic attack, unspecified (2) Afib Current visit: No Status: Chronic Continue with Cardizem metoprolol for rate control as well as Coumadin daily INR goal is 2-3 Qualifiers: Atrial fibrillation type: paroxysmal Qualified Code(s): I48.0 - Paroxysmal atrial fibrillation (3) CAD (coronary artery disease) Current visit: No Status: Chronic Continue with aspirin and statin beta lizzette Imdur Nitroglycerin as needed for chest pain Continuous cardiac monitoring Qualifiers: Coronary Disease-Associated Artery/Lesion type: [place] artery [place] vs. transplanted heart: [place] heart Associated angina: with stable angina Qualified Code(s): I25.118 - Atherosclerotic heart disease of [place] coronary artery with other forms of angina pectoris (4) COPD (chronic obstructive pulmonary disease) Current visit: No Status: Chronic Continue with oxygen titrating to maintain SPO2 greater than 90% Bronchodilators Qualifiers: COPD type: COPD with acute exacerbation Qualified Code(s): J44.1 - Chronic obstructive pulmonary disease with (acute) exacerbation (5) Chronic diastolic heart failure Current visit: No Status: Chronic Echo completed 10/16/17: LVEF 55%. Moderate left ventricular diastolic dysfunction. There is no LV thrombus. Atypical septal motion consistent with bundle branch block. Normal right ventricular structure and function. Mild mitral regurgitation. Borderline pulmonary hypertension - TR gradient 35 mmHg. -We will continue with Lasix -Monitor intake and output daily weights -Low sodium diet (6) HTN (hypertension) Current visit: No Status: Chronic 1 presently controlled we will continue with Lasix and beta lizzette Qualifiers: Hypertension type: essential hypertension Qualified Code(s): I10 - Essential (primary) hypertension (7) PAF (paroxysmal atrial fibrillation) Current visit: No Status: Chronic (8) Smoker Current visit: No Status: Chronic Encouraged patient to stop smoking and nicotine patch (9) DVT prophylaxis Current visit: No Status: Acute She is on Coumadin Internal Medicine - H&P: HPI Chief complaint: l sided weakness Admitted From: Emergency Dept Plans for Post Hospital Care: Home History of present illness: Ms. Strong is a 52 year old female past medical history of CVA/TIA atrial fibrillation on Coumadin and diabetes COPD CVA hyperlipidemia hypertension and IN CAD with stents bipolar. Patient was at PCP today for follow-up appointment during assessment patient began to experience fluttering in her chest warmth throughout her head left-sided facial numbness weakness garbled speech and left- sided upper and lower extremity weakness. The symptoms onset was approximately 1:15 today. Patient had similar symptoms last night which lasted a proximally one hour and resolved on own. She did not seek any medical attention. She has a history of previous TIAs and was at this facility approximately 2 weeks ago and underwent full assessment for CVA/TIA. At time there was concern that she may have thrown a clot from A. fib, all her imaging was negative. He is on Coumadin and is therapeutic at this time INR 2.1 CTA of head and neck that was essentially nonacute She was brought to the ER for evaluation. Upon presentation to the ER stroke alert was activated. CT of head was obtained which was negative for any intracranial hemorrhage or abnormality. She was evaluated per [facility] neurology via tele-stroke she was not a candidate for TPA secondary to INR. Neurology has been consulted, and patient has been admitted for further workup evaluation. Presently patient's symptoms have resolved. She does have some left-sided residual weakness from her previous episode 1 month ago. She is complaining of left-sided chest pressure described as a dull ache. She is hemodynamically stable at this time. I did review this case with Dr. Velazquez who agrees with plan. Past Med Surg Social Fam HX - Past Medical History Medical history: arthritis, asthma, atrial fibrillation, COPD, coronary artery disease, CVA, diabetes, GERD, hyperlipidemia, hypertension, migraine, myocardial infarction, peripheral artery disease, TIA, other Psychiatric history: anxiety, bipolar, depression, prior suicide attempt, previous psychiatric hospitalization - Past Surgical History Surgical History: angioplasty/stent, appendectomy, cholecystectomy, knee replacement - Social History Smoking Status: Current every day smoker Smokeless Tobacco Status: No Alcohol use: none Drug use: none - Family History Father Family Member Ethnicity: Non- Living Status: Sister Family Member Ethnicity: Non- Living Status: Still Living Grandfather Family Member Ethnicity: Non- Living Status: Hx Family Cardiac Disorders: Yes ([place], CAD) Mother Family Member Ethnicity: Non- Living Status: Hx Family Cardiac Disorders: Yes (CHF) Hx Family Respiratory Disorders: Yes (COPD) Hx Family Cancer: No Hx Family GI Disorders: No Hx Family Endocrine Disorder: No Hx Family Neuromuscular Disorders: No Hx Family Neurologic Disorders: No Hx Family HEENT Disorders: No Hx Family Autoimmune Disorders: No Internal Medicine - H&P: Meds Budesonide/Formoterol 160/4.5 [Symbicort 160/4.5] 2 puff IH BIDR 12/30/16 [ History] Insulin ASPART [NovoLOG] 2 - 10 unit SQ TIDWM PRN 12/30/16 [History] Insulin Glargine,Hum.rec.anlog [Lantus Solostar] 36 unit SQ HS 12/30/16 [History ] Nitroglycerin [Nitrostat] 0.4 mg SL Q5M PRN 12/30/16 [History] Ranitidine HCl [Acid Embossed Or Impressed Lettering Painter] 150 mg PO BID 12/30/16 [History] Tiotropium [Spiriva] 18 mcg IH DAILY 12/30/16 [History] Calcium Polycarbophil [Fibercon] 625 mg PO DAILY 03/15/17 [History] Oxygen 2 l NS HS 03/15/17 [History] LORazepam [Ativan] 0.5 mg PO HS #30 tablet 06/13/17 [Rx] hydrOXYzine pamoate [HydrOXYzine Pamoate] 50 mg PO TID #90 06/20/17 [Rx] Atorvastatin [Lipitor] 40 mg PO HS 07/03/17 [History] Quetiapine Fumarate [Seroquel] 300 mg PO HS 07/20/17 [History] Aspirin 81 mg PO DAILY #30 tab.chew 07/22/17 [Rx] Gabapentin [Neurontin] 400 mg PO TID 08/29/17 [History] Meclizine [Antivert] 12.5 mg PO BID 08/29/17 [History] Buspirone HCl [Buspar] 10 mg PO BID 09/14/17 [History] Diclofenac Sodium [Voltaren] 75 mg PO BID 09/14/17 [History] FLUoxetine HCl [Prozac] 40 mg PO BID 09/14/17 [History] Furosemide [Lasix] 20 - 40 mg PO DAILY 10/13/17 [History] Ipratropium/Albuterol Neb [Duoneb] 3 ml IH [id number] PRN 10/13/17 [History] Potassium Chloride [K-Tab ER] 10 meq PO DAILY 10/13/17 [History] Prochlorperazine Maleate [Compazine] 10 mg PO Q8HR PRN 10/13/17 [History] Diltiazem CD (24hr) [Cardizem CD] 240 mg PO DAILY cap.er.24h 10/20/17 [Rx] Isosorbide MONOnitrate (24 HR) [Imdur] 120 mg PO DAILY tab.er.24h 10/20/17 [Rx] Metoprolol XL (24 HR) Succ [Toprol Xl] 25 mg PO BID tab.er.24h 10/20/17 [Rx] Melatonin 10 mg PO HS 10/31/17 [History] Warfarin [Coumadin] 3 mg PO SUMOWEFR 10/31/17 [History] Warfarin [Coumadin] 4.5 mg PO TUTHSA 10/31/17 [History] 3 Allergy/AdvReac Type Severity Reaction Status Date / Time baclofen Allergy Itching Verified 09/25/17 18:02 ciprofloxacin [From Cipro] Allergy Hives Verified 09/25/17 18:02 latex Allergy Rash Verified 09/25/17 18:02 Penicillins Allergy Hives Verified 09/25/17 18:02 prednisone Allergy Itching Verified 09/25/17 18:02 sulfamethoxazole Allergy Hives Verified 09/25/17 18:02 [From Bactrim] trimethoprim [From Bactrim] Allergy Hives Verified 09/25/17 18:02 cefdinir AdvReac Vomiting Verified 09/25/17 18:02 Oxycodone AdvReac Hallucinati Verified 09/25/17 18:02 ng All Systems PM: A 10-system review of systems was performed and is negative for pertinent findings except as documented above in the HPI. - Constitutional Constitutional: no chills, no fever(s), no night sweats - EENT Eyes: no change in vision, no discharge, no pain, no photophobia Ears: no ear discharge, no ear pain, no tinnitus Nose, mouth and throat: no dysphagia, no nasal discharge, no neck pain, no sore throat - Cardiovascular Cardiovascular ROS IM: chest pain, no diaphoresis, no dyspnea, no lightheadedness, no palpitations, no syncope - Respiratory Respiratory: no cough, no dyspnea, no wheezing, no excessive phlegm production - Gastrointestinal Gastrointestinal: no abdominal pain, no diarrhea, no hematemesis, no hematochezia, no melena, no nausea, no vomiting - Genitourinary Genitourinary: no change in urinary stream, no dysuria, no flank pain, no hematuria - Musculoskeletal Musculoskeletal ROS IM: no numbness, no tingling - Integumentary Integumentary IM: no rash, no unusual bruising - Neurological Neurological ROS: no confusion, no convulsions, no focal weakness, no numbness, no tingling, no tremor(s) - Hematologic/Lymphatic Hematologic/Lymphatic: no easy bruising - Constitutional Vitals: Temp Pulse Resp BP Pulse Ox 98.4 F 66 11 128/73 97 10/31/17 14:50 10/31/17 14:50 10/31/17 14:50 10/31/17 14:50 10/31/17 14:49 General appearance: Present: A&O X 3 - Head Head exam: Present: atraumatic, normocephalic - Eye Eye exam: Present: PERRL, conjuntiva pink, sclera anicteric Pupils: Present: PERRL - Neck Neck exam general surgery: Present: supple, trachea midline. Absent: lymphadenopathy - Respiratory Respiratory exam: Present: CTAB. Absent: accessory muscle use, rales, rhonchi, wheezes - Cardiovascular Cardiovascular exam: Present: RRR, +S1, +S2. Absent: diastolic murmur, gallop, rubs, systolic murmur - GI/Abdominal GI/Abdominal exam: Present: normal bowel sounds, soft, no peritoneal signs. Absent: distended, tenderness - Extremities Exam Extremities exam: Present: warm, radial pulses palpable and symmetrical. Absent : calf tenderness, cyanotic, pedal edema - Neurological Exam Neurological exam: Present: CN II-XII intact, oriented X3, no focal deficits. Absent: pronater drift, facial droop, speech deficit - Expanded Neurological Exam Patient oriented to: Present: person, place, time Speech: Present: fluid speech Cranial Nerves: EOM's intact PM: Normal, tongue deviation PM: Normal Cerebellar function: finger to nose: Normal, heel to zheng: Normal Neuro motor strength exam: LUE: 4, RUE: 5, LLE: 4, RLE: 5 Coma Scale Eye Opening: Spontaneous Coma Scale Motor Response: Obeys Commands Coma Scale Verbal Response: Oriented Coma Scale Total: 15 - Skin Skin exam: Present: dry, intact Internal Med - H&P Results - Labs CBC & Chem 7: 10/31/17 14:18 10/31/17 14:18 - EKG Data EKG shows normal: sinus rhythm - EKG Data Prior EKG available for review: yes When compared to previous EKG: there is no significant change EKG comments: 10/31/17 21:47 LBB which is present in previous EKG - Diagnostic Studies Other Images Additional comments: Head CT 10/31/17 14:19 IMPRESSION: No acute intracranial abnormality. The results of the examination were discussed with Dr. Quiñones on 10/31/2017 at 2:45 p.m. D/ / Kartik Schmitz MD / aKrtik Schmitz MD Interpreting Provider: Kartik Schmitz MD
[2017-10-31] MEDS ORDERED: Ipratropium/Albuterol Neb 3 ML IH PRN (17:35)
[2017-10-31] MEDS ORDERED: Nitroglycerin 0.4 MG TAB.SUBL SL PRN (17:35)
[2017-10-31] MEDS ORDERED: Warfarin perPT PO PRN (18:00)
[2017-10-31] MEDS ORDERED: *HR* Warfarin 3 MG TABLET PO SCH (18:00)
--- NOTE | 2017-10-31 18:15 | Event Note ---
Date of Encounter: 10/31/17 Time of Encounter: 18:15 This has been discussed in details with nurse practitioner. Agree with assessment and plan
[2017-10-31] MEDS ORDERED: D5% in Water 1,000 ML IVC PRN (18:54)
[2017-10-31] MEDS ORDERED: *HR* Dextrose 50 % in Water (Syg) 50 ML SYRINGE IVP PRN (18:54)
[2017-10-31] MEDS ORDERED: Dextrose Gel 15 GM/37.5 ML TUBE PO PRN ×2 (18:54)
[2017-10-31] MEDS: Diclofenac Sodium 75 MG TABLET PO SCH (20:08)
[2017-10-31] MEDS: FLUoxetine 20 MG CAPSULE PO SCH (20:08)
[2017-10-31] MEDS: Nicotine 14 MG PATCH.TD24 TD SCH (20:09)
[2017-10-31] MEDS: hydrOXYzine pamoate 25 MG CAPSULE PO SCH (20:09)
[2017-10-31] MEDS: Famotidine 20 MG TABLET PO SCH (20:09)
[2017-10-31] MEDS: *HR* LORazepam 0.5 MG TABLET PO SCH (20:09)
[2017-10-31] MEDS: Gabapentin 400 MG CAPSULE PO SCH (20:09)
[2017-10-31] MEDS: Insulin LISPRO 300 UNITS/3 ML VIAL SQ SCH (20:48)
[2017-10-31] MEDS: Budesonide/Formoterol 160/4.5 MDI IH SCH (22:27)
[2017-10-31] MEDS: Metoprolol XL (24 HR) Succ 25 MG TAB.ER.24H PO SCH (23:52)
[2017-10-31] MEDS: Insulin DETEMIR 100 UNIT/ML X5UNITS SQ SCH (23:53)
[2017-11-01 04:49] LABS: Basophils # 0.1 K/mcL (0.0-0.2); Basophils % 0.8 %; Eosinophils # 0.1 K/mcL (0.0-0.6); Eosinophils % 1.6 %; Hematocrit 36.8 % (35.3-44.9); Hemoglobin 11.5 g/dL (11.5-15.4); Immature Granulocytes % 3.9 % (0-4); Lymphocytes % 32.2 %; Mean Corpuscular HGB Conc 31.3 g/dL (31.6-35.5); Mean Corpuscular Hemoglobin 28.7 pg (28.0-33.3); Mean Corpuscular Volume 91.8 fL (83.0-100.0); Mean Platelet Volume 9.2 fL (9.4-12.4); Monocytes # 0.6 K/mcL (0.0-1.3); Neutrophils # 3.3 K/mcL (1.6-8.9); Platelet Count 215 K/mcL (140-400); Red Blood Count 4.01 M/mcL (3.82-4.97); Red Cell Distribution Width 14.1 % (11.5-14.5); Segmented Neutrophils % 52.5 %
[2017-11-01 05:03] LABS: BUN/Creatinine Ratio 24 (6-26); Blood Urea Nitrogen 16 mg/dL (6-20); Calcium 8.4 mg/dL (8.6-10.3); Carbon Dioxide 30 mEq/L (23-29); Chloride 106 mEq/L (98-107); Chol/HDL Ratio 4.1 (0-4.9); Cholesterol 174 mg/dL (< 200); Glucose 124 mg/dL (70-105); HDL Cholesterol 42 mg/dL (40-59); LDL Cholesterol,Calculated 87 mg/dL (0-99); Osmolality,Calculated 295 (280-300); Potassium 4.4 mEq/L (3.5-5.1); Sodium 141 mEq/L (136-145); Triglycerides 224 mg/dL (< 150); eGFR For African Americans > 60 (> 60); eGFR For Non-African Americans > 60 (> 60)
[2017-11-01] MEDS: Insulin LISPRO 300 UNITS/3 ML VIAL SQ SCH ×4 (07:49→20:40)
[2017-11-01] MEDS: Aspirin 81 MG TAB.CHEW PO SCH (08:50)
[2017-11-01] MEDS: Furosemide 20 MG TABLET PO SCH (08:50)
[2017-11-01] MEDS: Diltiazem CD (24hr) 120 MG CAPSULE PO SCH (08:51)
[2017-11-01] MEDS: Metoprolol XL (24 HR) Succ 25 MG TAB.ER.24H PO SCH ×2 (08:51→20:19)
[2017-11-01] MEDS: Nicotine 14 MG PATCH.TD24 TD SCH (08:52)
[2017-11-01] MEDS: Isosorbide MONOnitrate (24 HR) 60 MG TAB.ER.24H PO SCH (08:53)
[2017-11-01] MEDS: hydrOXYzine pamoate 25 MG CAPSULE PO SCH ×3 (08:53→20:19)
[2017-11-01] MEDS: FLUoxetine 20 MG CAPSULE PO SCH ×2 (08:54→20:19)
[2017-11-01] MEDS: Famotidine 20 MG TABLET PO SCH ×2 (08:54→20:19)
[2017-11-01] MEDS: Diclofenac Sodium 75 MG TABLET PO SCH ×2 (08:54→20:19)
[2017-11-01] MEDS: Gabapentin 400 MG CAPSULE PO SCH ×3 (08:54→20:19)
[2017-11-01 09:25] LABS: INR 2.3
--- NOTE | 2017-11-01 09:34 | Neurology - Consult Note ---
<KaterineElmo parham Juan - Last Filed: 11/01/17 09:30> Date of Encounter: 11/01/17 Time of Encounter: 09:30 Assessment and Plan (1) Weakness Current Visit: Yes Status: Acute Patient has intermittent left-sided weakness that occurs for one or 2 hours and resolves on its own. She has been admitted multiple times and had complete workup including CT angiograms of the head and neck there were unremarkable. Unfortunately she cannot obtain an MRI at this facility because of a bladder stimulator but the most recent MRI performed at [facility] was unremarkable for any acute infarct. It is unlikely that the patient is having recurrent CVAs given that her symptoms are relatively minor and resolve on its own and she is currently therapeutic on her Coumadin. At this point her symptoms are most likely related to either partial seizures or hemiplegic migraine. Will obtain EEG to evaluate for possible seizures. We will begin prophylactic treatment of migraines with topiramate, starting at 25 mg at night and titrating up to a goal dose of 50 mg twice a day to control her symptoms. Also recommend transitioning her calcium channel lizzette from diltiazem to verapamil. This was discussed at length with the primary team. History of Present Illness Chief complaint: L sided weakness HPI: Ms. Strong is a 52 year old female with history of atrial fibrillation who presents with left-sided weakness and numbness. Patient states that she has recurring episodes of a feeling of warmth and fluttering in her chest that starts in her chest and spreads to her head. She reports that she then had left -sided upper and lower extremity weakness and numbness. She also reports speech difficulty. She states these episodes last for 1-2 hours and then resolved spontaneously. She states that she occasionally has headaches with this episodes but not every time. She also reports chronic migraine headaches in between these episodes. She has been admitted several times for these symptoms and workup has been unremarkable. She does have atrial fibrillation and takes Coumadin daily. Past Med Surg Social Fam HX - Past Medical History Medical history: arthritis, asthma, atrial fibrillation, COPD, coronary artery disease, CVA, diabetes, GERD, hyperlipidemia, hypertension, migraine, myocardial infarction, peripheral artery disease, TIA, other Psychiatric history: anxiety, bipolar, depression, prior suicide attempt, previous psychiatric hospitalization - Past Surgical History Surgical History: angioplasty/stent, appendectomy, cholecystectomy, knee replacement - Social History Smoking Status: Current every day smoker Packs per day: 1 Smokeless Tobacco Status: No Alcohol use: none Drug use: none - Family History Father Family Member Ethnicity: Non- Living Status: Sister Family Member Ethnicity: Non- Living Status: Still Living Grandfather Family Member Ethnicity: Non- Living Status: Hx Family Cardiac Disorders: Yes ([place], CAD) Mother Family Member Ethnicity: Non- Living Status: Hx Family Cardiac Disorders: Yes (CHF) Hx Family Respiratory Disorders: Yes (COPD) Hx Family Cancer: No Hx Family GI Disorders: No Hx Family Endocrine Disorder: No Hx Family Neuromuscular Disorders: No Hx Family Neurologic Disorders: No Hx Family HEENT Disorders: No Hx Family Autoimmune Disorders: No Medications and Allergies Budesonide/Formoterol 160/4.5 [Symbicort 160/4.5] 2 puff IH BIDR 12/30/16 [ History] Insulin ASPART [NovoLOG] 2 - 10 unit SQ TIDWM PRN 12/30/16 [History] Insulin Glargine,Hum.rec.anlog [Lantus Solostar] 36 unit SQ HS 12/30/16 [History ] Nitroglycerin [Nitrostat] 0.4 mg SL Q5M PRN 12/30/16 [History] Ranitidine HCl [Acid Stretch Machine Operator] 150 mg PO BID 12/30/16 [History] Tiotropium [Spiriva] 18 mcg IH DAILY 12/30/16 [History] Calcium Polycarbophil [Fibercon] 625 mg PO DAILY 03/15/17 [History] Oxygen 2 l NS HS 03/15/17 [History] LORazepam [Ativan] 0.5 mg PO HS #30 tablet 06/13/17 [Rx] hydrOXYzine pamoate [HydrOXYzine Pamoate] 50 mg PO TID #90 06/20/17 [Rx] Atorvastatin [Lipitor] 40 mg PO HS 07/03/17 [History] Quetiapine Fumarate [Seroquel] 300 mg PO HS 07/20/17 [History] Aspirin 81 mg PO DAILY #30 tab.chew 07/22/17 [Rx] Gabapentin [Neurontin] 400 mg PO TID 08/29/17 [History] Meclizine [Antivert] 12.5 mg PO BID 08/29/17 [History] Buspirone HCl [Buspar] 10 mg PO BID 09/14/17 [History] Diclofenac Sodium [Voltaren] 75 mg PO BID 09/14/17 [History] FLUoxetine HCl [Prozac] 40 mg PO BID 09/14/17 [History] Furosemide [Lasix] 20 - 40 mg PO DAILY 10/13/17 [History] Ipratropium/Albuterol Neb [Duoneb] 3 ml IH [id number] PRN 10/13/17 [History] Potassium Chloride [K-Tab ER] 10 meq PO DAILY 10/13/17 [History] Prochlorperazine Maleate [Compazine] 10 mg PO Q8HR PRN 10/13/17 [History] Diltiazem CD (24hr) [Cardizem CD] 240 mg PO DAILY cap.er.24h 10/20/17 [Rx] Isosorbide MONOnitrate (24 HR) [Imdur] 120 mg PO DAILY tab.er.24h 10/20/17 [Rx] Metoprolol XL (24 HR) Succ [Toprol Xl] 25 mg PO BID tab.er.24h 10/20/17 [Rx] Melatonin 10 mg PO HS 10/31/17 [History] Warfarin [Coumadin] 3 mg PO SUMOWEFR 10/31/17 [History] Warfarin [Coumadin] 4.5 mg PO TUTHSA 10/31/17 [History] 3 Allergy/AdvReac Type Severity Reaction Status Date / Time baclofen Allergy Itching Verified 09/25/17 18:02 ciprofloxacin [From Cipro] Allergy Hives Verified 09/25/17 18:02 latex Allergy Rash Verified 09/25/17 18:02 Penicillins Allergy Hives Verified 09/25/17 18:02 prednisone Allergy Itching Verified 09/25/17 18:02 sulfamethoxazole Allergy Hives Verified 09/25/17 18:02 [From Bactrim] trimethoprim [From Bactrim] Allergy Hives Verified 09/25/17 18:02 cefdinir AdvReac Vomiting Verified 09/25/17 18:02 Oxycodone AdvReac Hallucinati Verified 09/25/17 18:02 ng All Systems: A 10-system review of systems was performed and is negative for pertinent findings except as documented above in the HPI. Physical Examination - Vital Signs Vital Signs: Initial Vital Signs Temp Pulse Resp BP Pulse Ox 98.4 F 66 18 117/68 93 10/31/17 14:07 10/31/17 14:07 10/31/17 14:07 10/31/17 14:07 10/31/17 14:07 - Constitutional General appearance: comfortable - Neurologic Sensorimotor examination: intact Detailed motor examination: grossly full strength in all extremities Motor examination - right side: 5/5: deltoids, biceps, triceps, materials management clerk, tibialis Anterior, quadriceps, plantarflexion Motor examination - left side: 5/5: deltoids, biceps, triceps, materials management clerk, quadriceps , tibialis Anterior, plantarflexion Detailed sensory examination: intact Reflexes: Biceps: 2+, Brachioradialis: 2+, Patella: 2+, Achilles: 2+ Mental Status Examination: awake, alert, oriented to person, oriented to place, oriented to time, follows commands appropriately, answers questions appropriately, no agnosia, no aphasia, no aproxia Cranial nerve examination: PERRL, EOMI, visual you intact, sensory to face intact, mastication intact, no facial asymmetry is present, no dysarthria, flexes SCM and trapezius muscles symmetrically with full power, tongue protrudes midline, no atrophy or facial fasiculations present Cerebellar examination: performs finger to nose and heel to zheng symmetrically without ataxia Results - Laboratory Findings CBC and BMP: 11/01/17 03:45 11/01/17 03:45 Abnormal lab findings: Abnormal lab results MCHC 31.3 g/dL (31.6-35.5) L 11/01/17 03:45 MPV 9.2 fL (9.4-12.4) L 11/01/17 03:45 Nucleated RBCs/100 WBC 0.3 /100 WBC (0) H 10/31/17 14:18 PT 25.0 Seconds (9.4-12.1) H 11/01/17 08:46 APTT 38.1 Seconds (26.0-36.0) H 10/31/17 14:18 Carbon Dioxide 30 mEq/L (23-29) H 11/01/17 03:45 Glucose 124 mg/dL (70-105) H 11/01/17 03:45 POC Glucose 119 (58-89) H 10/31/17 20:32 Calcium 8.4 mg/dL (8.6-10.3) L 11/01/17 03:45 Triglycerides 224 mg/dL (< 150) H 11/01/17 03:45 VLDL Cholesterol, Calc 45 mg/dL (< 31) H 11/01/17 03:45 Consult Discharge Plan - Plan Referrals: Maurisio Ward MD [Primary Care Provider] - 11/08/17 9:45 am <Darrell Galvez I - Last Filed: 11/01/17 14:48> Date of Encounter: 11/01/17 History of Present Illness HPI: Ms. Strong is a 52 year old female All Systems: A 10-system review of systems was performed and is negative for pertinent findings except as documented above in the HPI. Physical Examination - Vital Signs Vital Signs: Initial Vital Signs Temp Pulse Resp BP Pulse Ox 98.4 F 66 18 117/68 93 10/31/17 14:07 10/31/17 14:07 10/31/17 14:07 10/31/17 14:07 10/31/17 14:07 Results - Laboratory Findings CBC and BMP: 11/01/17 03:45 11/01/17 03:45 Abnormal lab findings: Abnormal lab results MCHC 31.3 g/dL (31.6-35.5) L 11/01/17 03:45 MPV 9.2 fL (9.4-12.4) L 11/01/17 03:45 Nucleated RBCs/100 WBC 0.3 /100 WBC (0) H 10/31/17 14:18 PT 25.0 Seconds (9.4-12.1) H 11/01/17 08:46 APTT 38.1 Seconds (26.0-36.0) H 10/31/17 14:18 Carbon Dioxide 30 mEq/L (23-29) H 11/01/17 03:45 Glucose 124 mg/dL (70-105) H 11/01/17 03:45 POC Glucose 119 (58-89) H 10/31/17 20:32 Calcium 8.4 mg/dL (8.6-10.3) L 11/01/17 03:45 Triglycerides 224 mg/dL (< 150) H 11/01/17 03:45 VLDL Cholesterol, Calc 45 mg/dL (< 31) H 11/01/17 03:45 Ur Leukocyte Esterase Trace (Negative) H 11/01/17 11:45 Urine Microscopic WBC 3-5 per hpf (0-3) H 11/01/17 11:45 Ur Squamous Epith Cells Many per lpf (None-Few) H 11/01/17 11:45 - Attending Attestation Patient was seen and examined along with the resident agreed with the documentation including history of present illness as well as recommendations and plan. This patient was known to me from previous admission has symptoms at least once per month almost Strero typical. Had an extensive workup including multiple CT angiograms almost every month for the last 3 or 4 months as well as head MRI in the past last MRI was in 2016 as she cannot get further MRIs because of the spinal stimulator. MRI scan as well as CT angiograms were reviewed MRI did not show any evidence of large vessel stroke had only a few white matter changes At the same time no evidence of any vascular stenosis in major intra-or extracranial vessels. No evidence of any vasculitis At this time seems like patient's symptoms could be due to other etiologies besides stroke certainly if she did have that many strokes like about 1 stroke per month she should have some residual deficit are not the same time should have some imaging abnormalities. Because of history of atrial fibrillation she is at risk for stroke and for which she is on anti-combination with Coumadin, suggest that he should continue on it Other differential possibilities include Hemiplegic migraine/ complex migraine attack Complex partial seizures with postictal state Considering the possibility of a seizure disorder description is not quite typical of it will get an EEG to look for any intra-ictal abnormalities At the same time and the possible tear of hemiplegic migraine I would recommend preventative treatment start her on Topamax gradually increasing the dose, and at the same time suggest to try her on verapamil, as he seems to help and work as a preventive agent for hemiplegic migraines. Beside that continue to treat her atrial fibrillation And continue anticoagulation. If she remains stable she should be discharged to home and will follow her up as an outpatient Treatment plan was discussed with the primary team as well as with the patient who agrees with the plan Darrell Galvez MD
[2017-11-01] MEDS: Tiotropium 18 MCG inhalation IH SCH (10:50)
[2017-11-01] MEDS: Budesonide/Formoterol 160/4.5 MDI IH SCH ×2 (10:50→20:06)
[2017-11-01] MEDS ORDERED: Acetaminophen 325 MG TABLET PO PRN (11:11)
[2017-11-01 12:05] LABS: Bilirubin,Urine Negative (Negative); Blood,Urine Negative (Negative); Clarity,Urine Clear (Clear); Color,Urine Yellow (Yellow); Glucose,Urine (UA) Normal (Normal); Ketones,Urine Negative (Negative); Leukocyte Esterase,Urine Trace (Negative); Nitrite,Urine Negative (Negative); Protein,Urine Negative (Neg-Trace); Urobilinogen,Urine Normal (Normal)
[2017-11-01 12:06] LABS: Bacteria,Urine None Seen per hpf (None-Few); Hyaline Casts,Urine None Seen per lpf (None-Few); RBC,Urine 0-3 per hpf (0-3); Squamous Epithelial Cell,Urine Many per lpf (None-Few)
[2017-11-01] MEDS: *HR* OxyCODONE/APAP 5/325 TABLET PO PRN ×2 (15:27→22:40)
[2017-11-01] MEDS ORDERED: *HR* Warfarin 3 MG TABLET PO SCH (18:00)
--- NOTE | 2017-11-01 18:59 | Event Note ---
Date of Encounter: 11/01/17 Time of Encounter: 11:00 I examined this patient and my medical decision-making was reviewed with the Resident Physician on 11/01/17. I agree with the documented findings, disposition and treatment plan as described except to the extent set forth below. Ms Strong is currently in observation for acute neurologic symptoms. She is asymptomatic at this time except headache. Ms Strong has a headache but no weakness. No fever. No cough. Exam alert. Comfortable Mucus membranes dry Heart reg No wheeze Abd soft I/P 1. Hemiplegic migraine 2. Tobacco abuse 3. Diabetes mellitus 4. Morbid obesity 5. SNEHA 6. A fib 7. Chronic diastolic heart failure 8. Chronic hypoxic resp failure Further diagnoses and plan as per progress note of today.
[2017-11-01] MEDS: *HR* LORazepam 0.5 MG TABLET PO SCH (20:19)
[2017-11-01] MEDS: Insulin DETEMIR 100 UNIT/ML X5UNITS SQ SCH (20:40)
--- NOTE | 2017-11-01 20:52 | Internal Med Progress Note ---
<Ramsey Kraft Nehemiah - Last Filed: 11/01/17 21:04> Date of Encounter: 11/01/17 Time of Encounter: 08:20 - Assessment and plan (1) Weakness Current Visit: Yes Status: Acute Assessment and plan: Ms. Strong presented with Intermittent left-sided weakness that occurs for one or 2 hours and resolves on its own. She has been admitted multiple times and had complete workup which unremarkable. - She has been seen by Neurology with thoughts this may be secondary to migraines or partial seizure activity with plans for an EEG this afternoon. Plan: - EEG - Continue ASA and Warfarin (2) Afib Current Visit: No Status: Chronic Assessment and plan: Currently with regular rate and rhythm - Continue Metoprolol for rate control and Warfarin with INR goal 2-3 Qualifiers: Atrial fibrillation type: paroxysmal Qualified Code(s): I48.0 - Paroxysmal atrial fibrillation (3) Chronic diastolic heart failure Current Visit: No Status: Chronic Assessment and plan: Currently euvolemic. Continue maximize Cardiac coverage with B-lizzette, ASA, Statin. - Cardiac diet - Daily weights and 2gram sodium restrictions. - Continue home dose Lasix. Echo completed 10/16/17: LVEF 55%. Moderate left ventricular diastolic dysfunction. There is no LV thrombus. Atypical septal motion consistent with bundle branch block. Normal right ventricular structure and function. Mild mitral regurgitation. Borderline pulmonary hypertension - TR gradient 35 mmHg. (4) Diabetes mellitus type 2 in obese Current Visit: No Status: Chronic Assessment and plan: glucose currently controlled within appropriate range - Continue low dose inpatient sliding scale insulin - Levemir 36 units HS - ACHS glucose checks. (5) COPD (chronic obstructive pulmonary disease) Current Visit: No Status: Chronic Assessment and plan: Respiratory status stable - Continue bronchodilators Qualifiers: COPD type: COPD with acute exacerbation Qualified Code(s): J44.1 - Chronic obstructive pulmonary disease with (acute) exacerbation (6) DVT prophylaxis Current Visit: No Status: Acute Assessment and plan: Continue warfarin therapy. - Subjective Interval history: Ms. Strong has been seen and evaluated at patient bedside this morning. No new changes over night or acute events. She has had a headache with little improvement with nsaids. She denies any other concerns at this time. - Constitutional Vitals: Temp Pulse Resp BP Pulse Ox 98.3 F 69 16 129/65 95 11/01/17 15:00 11/01/17 20:36 11/01/17 20:36 11/01/17 20:37 11/01/17 20:36 General appearance: Present: A&O X 3 - Head Head exam: Present: atraumatic, normocephalic - Eye Eye exam: Present: PERRL, conjuntiva pink, sclera anicteric Pupils: Present: PERRL - Neck Neck exam general surgery: Present: supple, trachea midline. Absent: lymphadenopathy - Respiratory Respiratory exam: Present: CTAB. Absent: accessory muscle use, rales, rhonchi, wheezes - Cardiovascular Cardiovascular exam: Present: RRR, +S1, +S2. Absent: diastolic murmur, gallop, rubs, systolic murmur - GI/Abdominal GI/Abdominal exam: Present: normal bowel sounds, soft, no peritoneal signs. Absent: distended, tenderness - Extremities Exam Extremities exam: Present: warm, radial pulses palpable and symmetrical. Absent : calf tenderness, cyanotic, pedal edema - Neurological Exam Neurological exam: Present: CN II-XII intact, oriented X3, no focal deficits. Absent: pronater drift, facial droop, speech deficit - Skin Skin exam: Present: dry, intact Internal Medicine: Result - Labs CBC & Chem 7: 11/01/17 03:45 11/01/17 03:45 Labs: Short CBC 11/01/17 Range/Units 03:45 WBC 6.2 (4.3-11.1) K/mcL Hgb 11.5 (11.5-15.4) g/dL Hct 36.8 (35.3-44.9) % Plt Count 215 (140-400) K/mcL Neutrophils # 3.3 (1.6-8.9) K/mcL BMP 11/01/17 03:45 Sodium 141 Potassium 4.4 Chloride 106 Carbon Dioxide 30 H BUN 16 Creatinine 0.66 Glucose 124 H Calcium 8.4 L Cardiac Enzymes 11/01/17 Range/Units 03:45 Troponin I < 0.03 (< 0.04) ng/mL Urine 11/01/17 Range/Units 11:45 Urine Color Yellow (Yellow) Urine Clarity Clear (Clear) Urine pH 7.0 (5.0-8.0) pH Units Ur Specific [place] 1.010 (1.010-1.025) Urine Protein Negative (Neg-Trace) mg/dL Urine Glucose (UA) Normal (Normal) mg/dL - ABG Interpretation ABG results: PT/INR, D-dimer PT 25.0 Seconds (9.4-12.1) H 11/01/17 08:46 Consult Discharge Plan - Plan Instructions: Verapamil (By mouth), Warfarin (By mouth), Laxative, Stool Softeners (By mouth), Topiramate (By mouth) Additional Instructions: follow up with your PCP in the net 3-5days Follow up with neurology as scheduled Take medications as prescribed. Referrals: Maurisio Ward MD [Primary Care Provider] - 11/08/17 9:45 am Darrell Galvez MD [Partnered Physician] - (office will call patient at home with appointment date and time. if you have not heard from them by next week please call them) Prescriptions: Docusate [Colace] 100 mg PO BID #60 capsule Topiramate [Topamax] 25 mg PO HS #60 tablet Verapamil HCl [Verapamil ER] 240 mg PO DAILY #30 cap24h.pel <Ray Lepe - Last Filed: 11/02/17 17:42> Date of Encounter: 11/01/17 - Constitutional Vitals: Temp Pulse Resp BP Pulse Ox 97.9 F 63 16 103/50 95 11/02/17 16:26 11/02/17 16:26 11/02/17 16:26 11/02/17 16:26 11/02/17 16:26 Internal Medicine: Result - Labs CBC & Chem 7: 11/01/17 03:45 11/01/17 03:45 - ABG Interpretation ABG results: PT/INR, D-dimer PT 20.9 Seconds (9.4-12.1) H 11/02/17 03:54 - Attending Attestation I examined this patient and my medical decision-making was reviewed with the Resident Physician on 11/01/17. I agree with the documented findings, disposition and treatment plan as described except to the extent set forth below. Please see event note of this date.
[2017-11-01] MEDS ORDERED: Topiramate 25 MG TABLET PO SCH (21:00)
[2017-11-01] MEDS ORDERED: Loperamide 1 MG/5 ML UDC PO PRN (22:32)
[2017-11-02 05:22] LABS: INR 1.9; Prothrombin Time 20.9 Seconds (9.4-12.1)
[2017-11-02] MEDS: Budesonide/Formoterol 160/4.5 MDI IH SCH (07:50)
[2017-11-02] MEDS: Tiotropium 18 MCG inhalation IH SCH (07:51)
--- NOTE | 2017-11-02 07:57 | Electrocardiograph Report ---
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
[2017-11-02] MEDS: FLUoxetine 20 MG CAPSULE PO SCH (08:15)
[2017-11-02] MEDS: Furosemide 20 MG TABLET PO SCH (08:15)
[2017-11-02] MEDS: Diltiazem CD (24hr) 120 MG CAPSULE PO SCH (08:15)
[2017-11-02] MEDS: Diclofenac Sodium 75 MG TABLET PO SCH (08:15)
[2017-11-02] MEDS: Gabapentin 400 MG CAPSULE PO SCH ×2 (08:16→14:21)
[2017-11-02] MEDS: Famotidine 20 MG TABLET PO SCH (08:16)
[2017-11-02] MEDS: Aspirin 81 MG TAB.CHEW PO SCH (08:16)
[2017-11-02] MEDS: Metoprolol XL (24 HR) Succ 25 MG TAB.ER.24H PO SCH (08:16)
[2017-11-02] MEDS: Isosorbide MONOnitrate (24 HR) 60 MG TAB.ER.24H PO SCH (08:19)
[2017-11-02] MEDS: *HR* OxyCODONE/APAP 5/325 TABLET PO PRN ×2 (08:19→14:19)
[2017-11-02] MEDS: hydrOXYzine pamoate 25 MG CAPSULE PO SCH ×2 (08:19→14:19)
[2017-11-02] MEDS: Insulin LISPRO 300 UNITS/3 ML VIAL SQ SCH ×2 (08:24→12:10)
[2017-11-02] MEDS: Nicotine 14 MG PATCH.TD24 TD SCH (08:24)
--- NOTE | 2017-11-02 09:33 | Neurology Progress Note ---
Date of Encounter: 11/02/17 Time of Encounter: 07:20 Assessment and Plan (1) History of CVA (cerebrovascular accident) Current Visit: No Status: Acute This patient who has history of multiple risk factors for the stroke as well as a history of CVA in the past, without any focal neurological deficit on this current examination seems to be stable and no evidence of any stroke on this recent admission at the same time and does not seems to be TIA due to the fact that he has multiple presentations in the last 3 months all seemed to resolve within a few hours or spontaneously without any evidence of critical stenosis and any of intracranial and extra cranial distribution. Though she has multiple risk factors including atrial fibrillation as well as sleep apnea but she is on anticoagulation I suggested that she should continue with a therapeutic INR. 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 Especially when her workup for the stroke has been negative at multiple occasions As we continue to treat her with anticoagulation because of atrial fibrillation for secondary stroke prevention I would also recommend that we should treat her with this preventive therapy for this possibility of hemiplegic migraine attack She has been started on Topamax on this admission I will suggest we should continue increasing the dose to 25 mg twice a day after week and then gradually to 50 mg twice At the same time also recommend that if could change her antihypertensive therapy to verapamil as it is known to have beneficial effect as a preventive agent for hemiplegic migraines. We will see her back in neurology clinic in 3-4 weeks after discharge She will continue on all other medications that she been taking for her multiple other medical conditions Plan was discussed with the primary team as well as with the patient Qualifiers: Intractability: intractable Qualified Code(s): G43.419 - Hemiplegic migraine, intractable, without status migrainosus (3) Afib Current Visit: No Status: Chronic Qualifiers: Atrial fibrillation type: chronic Qualified Code(s): I48.2 - Chronic atrial fibrillation (4) Complicated migraine Current Visit: No Status: Acute Subjective Interval history: Patient is clinically stable she denies any other new symptoms or any other new problems she is able to ambulate without any help denies any headaches or any visual changes Objective - Constitutional Vitals: Temp Pulse Resp BP Pulse Ox 98.1 F 70 20 139/77 95 11/02/17 07:14 11/02/17 07:14 11/02/17 07:50 11/02/17 07:14 11/02/17 07:50 - Neurological Exam Sensorimotor examination: Present: intact Motor Examination: Present: grossly full strength in all extremities Motor examination - left side: 5/5: deltoids, biceps, triceps, emu farmer, quadriceps , tibialis Anterior, plantarflexion Sensation intact: Present: intact Mental Status Examination: Present: awake, alert, oriented to person, oriented to place, oriented to time, follows commands appropriately, answers questions appropriately, no agnosia, no aphasia, no aproxia Cranial nerve examination: Present: PERRL, EOMI, visual you intact, sensory to face intact, mastication intact, no facial asymmetry is present, no dysarthria, flexes SCM and trapezius muscles symmetrically with full power, tongue protrudes midline, no atrophy or facial fasiculations present Cerebellar examination: Present: performs finger to nose and heel to zheng symmetrically without ataxia Results - Laboratory Findings CBC and BMP: 11/01/17 03:45 11/01/17 03:45 Abnormal lab findings: Abnormal lab results MCHC 31.3 g/dL (31.6-35.5) L 11/01/17 03:45 MPV 9.2 fL (9.4-12.4) L 11/01/17 03:45 Nucleated RBCs/100 WBC 0.3 /100 WBC (0) H 10/31/17 14:18 PT 20.9 Seconds (9.4-12.1) H 11/02/17 03:54 APTT 38.1 Seconds (26.0-36.0) H 10/31/17 14:18 Carbon Dioxide 30 mEq/L (23-29) H 11/01/17 03:45 Glucose 124 mg/dL (70-105) H 11/01/17 03:45 POC Glucose 173 (58-89) H 11/01/17 16:12 Calcium 8.4 mg/dL (8.6-10.3) L 11/01/17 03:45 Triglycerides 224 mg/dL (< 150) H 11/01/17 03:45 VLDL Cholesterol, Calc 45 mg/dL (< 31) H 11/01/17 03:45 Ur Leukocyte Esterase Trace (Negative) H 11/01/17 11:45 Urine Microscopic WBC 3-5 per hpf (0-3) H 11/01/17 11:45 Ur Squamous Epith Cells Many per lpf (None-Few) H 11/01/17 11:45 Consult Discharge Plan - Plan Referrals: Maurisio Ward MD [Primary Care Provider] - 11/08/17 9:45 am
--- NOTE | 2017-11-02 11:07 | Discharge Summary ---
<Ramsey Kraft - Last Filed: 11/02/17 15:39> Date of Encounter: 11/02/17 Time of Encounter: 11:05 - Discharge Diagnosis (1) Weakness Priority: Primary Status: Acute (2) Afib Priority: Primary Status: Chronic Qualifiers: Atrial fibrillation type: chronic Qualified Code(s): I48.2 - Chronic atrial fibrillation (3) Chronic diastolic heart failure Priority: Secondary Status: Chronic (4) Diabetes mellitus type 2 in obese Priority: Secondary Status: Chronic (5) COPD (chronic obstructive pulmonary disease) Priority: Secondary Status: Chronic Qualifiers: COPD type: COPD with acute exacerbation Qualified Code(s): J44.1 - Chronic obstructive pulmonary disease with (acute) exacerbation (6) DVT prophylaxis Priority: Secondary Status: Acute - Discharge Medications Prescriptions: Docusate [Colace] 100 mg PO BID #60 capsule Topiramate [Topamax] 25 mg PO HS #60 tablet Verapamil HCl [Verapamil ER] 240 mg PO DAILY #30 cap24h.pel Home Medications: Budesonide/Formoterol 160/4.5 [Symbicort 160/4.5] 2 puff IH BIDR 12/30/16 [ History] Insulin ASPART [NovoLOG] 2 - 10 unit SQ TIDWM PRN 12/30/16 [History] Insulin Glargine,Hum.rec.anlog [Lantus Solostar] 36 unit SQ HS 12/30/16 [History ] Nitroglycerin [Nitrostat] 0.4 mg SL Q5M PRN 12/30/16 [History] Ranitidine HCl [Acid Trimming Press Operator] 150 mg PO BID 12/30/16 [History] Tiotropium [Spiriva] 18 mcg IH DAILY 12/30/16 [History] Calcium Polycarbophil [Fibercon] 625 mg PO DAILY 03/15/17 [History] Oxygen 2 l NS HS 03/15/17 [History] LORazepam [Ativan] 0.5 mg PO HS #30 tablet 06/13/17 [Rx] hydrOXYzine pamoate [HydrOXYzine Pamoate] 50 mg PO TID #90 06/20/17 [Rx] Atorvastatin [Lipitor] 40 mg PO HS 07/03/17 [History] Quetiapine Fumarate [Seroquel] 300 mg PO HS 07/20/17 [History] Aspirin 81 mg PO DAILY #30 tab.chew 07/22/17 [Rx] Gabapentin [Neurontin] 400 mg PO TID 08/29/17 [History] Meclizine [Antivert] 12.5 mg PO BID 08/29/17 [History] Buspirone HCl [Buspar] 10 mg PO BID 09/14/17 [History] Diclofenac Sodium [Voltaren] 75 mg PO BID 09/14/17 [History] FLUoxetine HCl [Prozac] 40 mg PO BID 09/14/17 [History] Furosemide [Lasix] 20 - 40 mg PO DAILY 10/13/17 [History] Ipratropium/Albuterol Neb [Duoneb] 3 ml IH [id number] PRN 10/13/17 [History] Potassium Chloride [K-Tab ER] 10 meq PO DAILY 10/13/17 [History] Prochlorperazine Maleate [Compazine] 10 mg PO Q8HR PRN 10/13/17 [History] Isosorbide MONOnitrate (24 HR) [Imdur] 120 mg PO DAILY tab.er.24h 10/20/17 [Rx] Metoprolol XL (24 HR) Succ [Toprol Xl] 25 mg PO BID tab.er.24h 10/20/17 [Rx] Melatonin 10 mg PO HS 10/31/17 [History] Warfarin [Coumadin] 3 mg PO SUMOWEFR 10/31/17 [History] Warfarin [Coumadin] 4.5 mg PO TUTHSA 10/31/17 [History] Acetaminophen [Tylenol] 650 mg PO Q6HR PRN tablet 11/02/17 [Rx] Docusate [Colace] 100 mg PO BID #60 capsule 11/02/17 [Rx] Nicotine Patch [Nicoderm] 14 mg TD DAILY patch.td24 11/02/17 [Rx] Topiramate [Topamax] 25 mg PO HS #60 tablet 11/02/17 [Rx] Verapamil HCl [Verapamil ER] 240 mg PO DAILY #30 cap24h.pel 11/02/17 [Rx] Allergies/Adverse Reactions: 3 Allergy/AdvReac Type Severity Reaction Status Date / Time baclofen Allergy Itching Verified 09/25/17 18:02 ciprofloxacin [From Cipro] Allergy Hives Verified 09/25/17 18:02 latex Allergy Rash Verified 09/25/17 18:02 Penicillins Allergy Hives Verified 09/25/17 18:02 prednisone Allergy Itching Verified 09/25/17 18:02 sulfamethoxazole Allergy Hives Verified 09/25/17 18:02 [From Bactrim] trimethoprim [From Bactrim] Allergy Hives Verified 09/25/17 18:02 cefdinir AdvReac Vomiting Verified 09/25/17 18:02 Oxycodone AdvReac Hallucinati Verified 09/25/17 18:02 ng Date of admission: 10/31/17 16:22 Primary care physician: Maurisio Ward MD Consults: 10/31/17 17:03 Consult to Occupational Therapy [CONS] Routine Comment: Evaluate, develop and implement POC Reason for Consult: TIA Consult to Physical Therapy [CONS] Routine Comment: Evaluate, develop and implement POC Reason for Consult: TIA 11/01/17 10:59 Consult to Interpret Exam [CONS] Routine Consulting Provider: Darrell Galvez I Consult to Interpret Exam: Interpret EEG Discharging clinician: Ramsey Kraft Anticipated date of discharge: 11/02/17 - Patient Status Disposition: Home, Self-Care Condition: Fair Overall status at discharge: patient is progressing back to baseline - Discharge Instructions Instructions: Verapamil (By mouth), Warfarin (By mouth), Laxative, Stool Softeners (By mouth), Topiramate (By mouth) Follow Up With: Maurisio Ward MD [Primary Care Provider] - 11/08/17 9:45 am Darrell Galvez MD [Partnered Physician] - (office will call patient at home with appointment date and time. if you have not heard from them by next week please call them) Additional Instructions: follow up with your PCP in the net 3-5days Follow up with neurology as scheduled Take medications as prescribed. - Diet and Activity Activity: increase activity as tolerated Diet: advance to your usual diet Interval History: Ms. Strong is a 52 year old female past medical history of CVA/TIA atrial fibrillation on Coumadin and diabetes COPD CVA hyperlipidemia hypertension and [place] CAD with stents bipolar. Patient was at PCP today for follow-up appointment during assessment patient began to experience fluttering in her chest and warmth throughout her head left-sided facial numbness weakness garbled speech and left-sided upper and lower extremity weakness. She did not seek any treatment at that time. She had recurrent episode the evening prior to coming in for which she neglected to seek treatment. With each of these events or symptoms resolved on their own. She is on Coumadin and is therapeutic upon evaluation in the emergency department her INR 2.1 CTA of head and neck that was essentially no acute findings. Upon presentation to the ER stroke alert was activated. She was evaluated per [facility] neurology via tele-stroke she was not a candidate for TPA secondary to INR. Neurology has been consulted, and patient has been admitted for further workup evaluation. She continued to have headaches for which were evaluated by neurology. They switched her Cardizem to verapamil and she is started on Topamax. She is recommended to continue taking her Coumadin maintain a therapeutic INR of 2-3. She is seen and evaluated on and stable for discharge home with follow-up with PCP and neurology. Hospital course: Ms. Strong is a 52 year old female - Time Spent with Patient Total time spent providing and/or coordinating discharge services: - Constitutional Vitals: Temp Pulse Resp BP Pulse Ox 98.1 F 70 20 139/77 95 11/02/17 07:14 11/02/17 07:14 11/02/17 07:50 11/02/17 07:14 11/02/17 07:50 General appearance: Present: A&O X 3 - Head Head exam: Present: atraumatic, normocephalic - Eye Eye exam: Present: PERRL, conjuntiva pink, sclera anicteric Pupils: Present: PERRL - Neck Neck exam general surgery: Present: supple, trachea midline. Absent: lymphadenopathy - Respiratory Respiratory exam: Present: CTAB. Absent: accessory muscle use, rales, rhonchi, wheezes - Cardiovascular Cardiovascular exam: Present: RRR, +S1, +S2. Absent: diastolic murmur, gallop, rubs, systolic murmur - GI/Abdominal GI/Abdominal exam: Present: normal bowel sounds, soft, no peritoneal signs. Absent: distended, tenderness - Extremities Exam Extremities exam: Present: warm, radial pulses palpable and symmetrical. Absent : calf tenderness, cyanotic, pedal edema - Neurological Exam Neurological exam: Present: CN II-XII intact, oriented X3, no focal deficits. Absent: pronater drift, facial droop, speech deficit - Skin Skin exam: Present: dry, intact <Ray Lepe - Last Filed: 11/02/17 17:50> Date of Encounter: 11/02/17 - Discharge Diagnosis (1) Hemiplegic migraine without status migrainosus Priority: Primary Status: Acute Qualifiers: Intractability: intractable Qualified Code(s): G43.419 - Hemiplegic migraine, intractable, without status migrainosus (2) Afib Status: Chronic Qualifiers: Atrial fibrillation type: chronic Qualified Code(s): I48.2 - Chronic atrial fibrillation (3) CAD (coronary artery disease) Priority: Secondary Status: Chronic Qualifiers: Coronary Disease-Associated Artery/Lesion type: [place] artery [place] vs. transplanted heart: [place] heart Associated angina: without angina Qualified Code(s): I25.10 - Atherosclerotic heart disease of [place] coronary artery without angina pectoris (4) Chronic diastolic heart failure Status: Chronic (5) Tobacco abuse Priority: Secondary Status: Chronic (6) Diabetes mellitus type 2 in obese Status: Chronic (7) HTN (hypertension) Priority: Secondary Status: Chronic Qualifiers: Hypertension type: essential hypertension Qualified Code(s): I10 - Essential (primary) hypertension (8) SNEHA (obstructive sleep apnea) Priority: Secondary Status: Chronic (9) Morbid obesity with BMI of 45.0-49.9, adult Priority: Secondary Status: Chronic Date of admission: 10/31/17 16:22 Primary care physician: Maurisio Ward MD Consults: 10/31/17 17:03 Consult to Occupational Therapy [CONS] Routine Comment: Evaluate, develop and implement POC Reason for Consult: TIA Consult to Physical Therapy [CONS] Routine Comment: Evaluate, develop and implement POC Reason for Consult: TIA 11/01/17 10:59 Consult to Interpret Exam [CONS] Routine Consulting Provider: Darrell Galvez I Consult to Interpret Exam: Interpret EEG Hospital course: Ms. Strong is a 52 year old female - Time Spent with Patient Total time spent providing and/or coordinating discharge services: - Constitutional Vitals: Temp Pulse Resp BP Pulse Ox 97.9 F 63 16 103/50 95 11/02/17 16:26 11/02/17 16:26 11/02/17 16:26 11/02/17 16:26 11/02/17 16:26 - Attending Attestation I examined this patient and my medical decision-making was reviewed with the Resident Physician on 11/02/17. I agree with the documented findings, disposition and treatment plan as described except to the extent set forth below. Ms Strong has been in observation for acute neurologic symptoms. She has been evaluated and it is felt this is hemiplegic migraine. She is afebrile with no acute symptoms at this time. She is ready for discharge home. Exam Alert. Comfortable Mucus membranes dry Heart reg No wheeze Plan D/C home today Change Cardizem to Verapamil and add Topamax No other med changes. Follow with PCP. See neuro in 3-4 weeks.
[2017-11-02] MEDS ORDERED: 0.9 % Sodium Chloride 500 ML IVC ONE (12:01)
[2017-11-02 16:29] VITALS: BP 103/50
--- NOTE | 2017-11-07 11:41 | EEG/EMG/Oth Biometrics Report ---
EEG Procedure Report Date of procedure: 11/01/17 EEG Procedure: Routine EEG Procedure Note: Routine 21-channel digital EEG was obtained to rule out any seizure activity or focal abnormalities. FINDINGS: Background rhythm during awake stage shows well-organized, well- developed, average voltage 8 to 9 hertz alpha activity in the posterior regions. It blocks with eye opening and it is bilaterally synchronous and symmetrical. No [id number] discharges or any lateralizing abnormalities are seen. Photic stimulation did not produce any abnormalities. Hyperventilation was performed for 3 minutes. No abnormalities were found during the procedure. Intermittent EMG artifacts were seen. Stage II sleep was not achieved. IMPRESSION: Normal awake study with lot of artifacts No epileptiform discharges or any other paroxysmal activities or focal abnormalities seen. Clinical correlation is recommended.
== END 2017-11-02 17:58 | disposition home or self-care (01) ==
LOC: EMEROO 14:03 → 2NENU 14:03
PROVIDERS: ADMIT Internal Medicine; ATTEND Internal Medicine

== ENCOUNTER 2017-11-15 14:05 | Observation (INO) ==
--- NOTE | 2017-11-15 15:04 | Emergency Department Note ---
Disposition Clinical Impression: Shortness of breath Chest pain Qualifiers: Chest pain type: unspecified Qualified Code(s): R07.9 - Chest pain, unspecified Disposition: Admitted As Inpatient Condition: Good Referrals: Maurisio Ward MD [Primary Care Provider] - Forms: ED Satisfaction Letter Time of Disposition: 18:51 General Adult HPI - General Chief complaint: ED Shortness of Breath/Dyspnea Stated complaint: SOB / Dizzy / Decreased Urination Time Seen by Provider: 11/15/17 14:49 Source: patient Limitations: no limitations Nursing Notes Reviewed: Yes Vital Signs Reviewed: Yes - History of Present Illness HPI Narrative: Patient is a 52-year-old female that presents to the emergency department for shortness of breath with intermittent chest pain. She states that the chest pain is located in the center of her chest and radiates to her right arm and describes it as sharp. She states that when the pain is there rates as a 4 out of 10. She states that she is currently not having any chest pain. States that she also has some associated dizziness, nausea but no diaphoresis with the chest pain. States that she called the urologist Dr. Jean Baptiste to get in due to her feeling like she is not reducing as much urine and they stated that they could not see her today she also called her regular doctor and he suggested that she go to the emergency Department due to having shortness of breath with chest pain. Patient states that she has a previous history of LA with stent placement in 2006 as well as a history of congestive heart failure. Patient states this does not feel like previous heart attack but does feel like her congestive heart failure. Pain Scale: 0 - Related Data Home Medications Medication Instructions Recorded Confirmed Budesonide/Formoterol 160/4.5 2 puff IH BIDR 12/30/16 10/31/17 [Symbicort 160/4.5] Insulin ASPART [NovoLOG] 2 - 10 unit SQ TIDWM PRN 12/30/16 10/31/17 Insulin Glargine,Hum.rec.anlog 36 unit SQ HS 12/30/16 10/31/17 [Lantus Solostar] Nitroglycerin [Nitrostat] 0.4 mg SL Q5M PRN 12/30/16 10/31/17 Ranitidine HCl [Acid Ink Jet Operator] 150 mg PO BID 12/30/16 10/31/17 Tiotropium [Spiriva] 18 mcg IH DAILY 12/30/16 10/31/17 Calcium Polycarbophil [Fibercon] 625 mg PO DAILY 03/15/17 10/31/17 Oxygen 2 l NS HS 03/15/17 10/31/17 Atorvastatin [Lipitor] 40 mg PO HS 07/03/17 10/31/17 Quetiapine Fumarate [Seroquel] 300 mg PO HS 07/20/17 10/31/17 Gabapentin [Neurontin] 400 mg PO TID 08/29/17 10/31/17 Meclizine [Antivert] 12.5 mg PO BID 08/29/17 10/31/17 Buspirone HCl [Buspar] 10 mg PO BID 09/14/17 10/31/17 Diclofenac Sodium [Voltaren] 75 mg PO BID 09/14/17 10/31/17 FLUoxetine HCl [Prozac] 40 mg PO BID 09/14/17 10/31/17 Furosemide [Lasix] 20 - 40 mg PO DAILY 10/13/17 10/31/17 Ipratropium/Albuterol Neb [Duoneb] 3 ml IH [id number] PRN 10/13/17 10/31/17 Potassium Chloride [K-Tab ER] 10 meq PO DAILY 10/13/17 10/31/17 Prochlorperazine Maleate 10 mg PO Q8HR PRN 10/13/17 10/31/17 [Compazine] Melatonin 10 mg PO HS 10/31/17 10/31/17 Warfarin [Coumadin] 3 mg PO SUMOWEFR 10/31/17 10/31/17 Warfarin [Coumadin] 4.5 mg PO TUTHSA 10/31/17 10/31/17 Previous Rx's Medication Instructions Recorded LORazepam [Ativan] 0.5 mg PO HS #30 tablet 06/13/17 hydrOXYzine pamoate [HydrOXYzine 50 mg PO TID #90 06/20/17 Pamoate] Aspirin 81 mg PO DAILY #30 tab.chew 07/22/17 Isosorbide MONOnitrate (24 HR) 120 mg PO DAILY tab.er.24h 10/20/17 [Imdur] Metoprolol XL (24 HR) Succ [Toprol 25 mg PO BID tab.er.24h 10/20/17 Xl] Acetaminophen [Tylenol] 650 mg PO Q6HR PRN tablet 11/02/17 Docusate [Colace] 100 mg PO BID #60 capsule 11/02/17 Nicotine Patch [Nicoderm] 14 mg TD DAILY patch.td24 11/02/17 Topiramate [Topamax] 25 mg PO HS #60 tablet 11/02/17 Verapamil HCl [Verapamil ER] 240 mg PO DAILY #30 cap24h.pel 11/02/17 Allergies Allergy/AdvReac Type Severity Reaction Status Date / Time baclofen Allergy Itching Verified 11/15/17 14:22 ciprofloxacin [From Cipro] Allergy Hives Verified 11/15/17 14:22 latex Allergy Rash Verified 11/15/17 14:22 Penicillins Allergy Hives Verified 11/15/17 14:22 prednisone Allergy Itching Verified 11/15/17 14:22 sulfamethoxazole Allergy Hives Verified 11/15/17 14:22 [From Bactrim] trimethoprim [From Bactrim] Allergy Hives Verified 11/15/17 14:22 cefdinir AdvReac Vomiting Verified 11/15/17 14:22 Oxycodone AdvReac Hallucinati Verified 11/15/17 14:22 ng All systems ED: reviewed and negative except as stated. Cardiovascular: Reports: chest pain Respiratory: Reports: dyspnea Gastrointestinal: Reports: nausea Genitourinary: Reports: other (Decreased urine output) Past Medical History - Past Medical History Medical history: Reports: atrial fibrillation, CHF, COPD, CVA, diabetes, hyperlipidemia, hypertension, myocardial infarction, seizures, TIA Surgical history: Reports: angioplasty/stent, appendectomy, cholecystectomy, knee replacement Psychiatric history: Reports: anxiety, bipolar, depression, prior suicide attempt, previous psychiatric hospitalization [employer] history: Reports: bilateral 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 - Social History Smoking Status: Current every day smoker Smokeless Tobacco Status: No Alcohol use: Reports: occasionally Drug use: Reports: none Physical Exam - General Limitations: no limitations General appearance: alert, in no apparent distress - Head Head exam: atraumatic, normocephalic - Eye Eye exam: Present: normal appearance, EOMI - Neck Neck exam: Present: normal inspection, full ROM, trachea midline - Respiratory Respiratory exam: Present: normal lung sounds bilaterally. Absent: respiratory distress, wheezes - Cardiovascular Cardiovascular exam: Present: regular rate, normal rhythm, normal heart sounds, +S1, +S2 - Abdominal Exam Abdominal exam: Present: soft, Non-Tender, normal bowel sounds - Expanded Lower Extremity Exam Lower leg exam: Present: other (1+ pitting edema bilateral lower extremities.) - Neurological Exam Neurological exam: Present: alert, oriented X3 - Psychiatric Psychiatric exam: Present: normal affect, normal mood - Skin Skin exam: Present: warm, dry, intact Course Vital Signs Temperature 98.9 F 11/15/17 14:22 Pulse Rate 77 11/15/17 14:22 Respiratory Rate 24 11/15/17 14:22 Blood Pressure 96/65 11/15/17 14:22 O2 Sat by Pulse Oximetry 97 11/15/17 14:22 Temperature 98.9 F 11/15/17 14:22 Pulse Rate 72 11/15/17 16:20 Respiratory Rate 16 11/15/17 16:20 Blood Pressure 114/69 11/15/17 16:20 O2 Sat by Pulse Oximetry 96 11/15/17 16:20 Oxygen Delivery Oxygen Delivery Room Air Medical Decision Making - [facility] Narrative Medical decision making narrative: Patient presenting with shortness of breath and intermittent chest pain we will obtain a CBC, BMP, troponin, chest x-ray and EKG. Patient's EKG showed a sinus rhythm. The chest x-ray showed a mild left base atelectasis. Troponin was negative. The patient's CBC was unremarkable. The remainder of her laboratory testing was unremarkable. BNP was 50. After reviewing the patient's medical records appears that she had a stress test done approximately 5 months ago that showed possible mild ischemia. Due to the patient having intermittent chest pain, shortness of breath nausea with these findings and stress test feeling the patient should be admitted to the hospital for further evaluation and management. The patient is in agreement with this. The patient will be admitted to the hospital at this time. I called and spoke with hospitalist and they have accepted the patient to their service. The patient be admitted to the hospital for further evaluation at this time. - Medical Records Medical records reviewed: Yes I reviewed the patient's medical records. - Lab Data Lab results reviewed: Yes I reviewed the patient's lab results. Result diagrams: 11/15/17 15:50 11/15/17 15:50 Lab Results 11/15/17 11/15/17 11/15/17 Range/Units 15:50 15:50 15:50 WBC 8.1 (4.3-11.1) K/mcL RBC 4.18 (3.82-4.97) M/mcL Hgb 12.1 (11.5-15.4) g/dL Hct 36.4 (35.3-44.9) % MCV 87.1 (83.0-100.0) fL MCH 28.9 (28.0-33.3) pg MCHC 33.2 (31.6-35.5) g/dL RDW 13.7 (11.5-14.5) % Plt Count 213 (140-400) K/mcL MPV 9.6 (9.4-12.4) fL Immature Gran % 1.0 (0-4) % Seg Neutrophils % 65.7 % Lymphocytes % 23.6 % Monocytes % 7.4 % Eosinophils % 1.6 % Basophils % 0.7 % Neutrophils # 5.4 (1.6-8.9) K/mcL Lymphocytes # 1.9 (0.6-4.6) K/mcL Monocytes # 0.6 (0.0-1.3) K/mcL Eosinophils # 0.1 (0.0-0.6) K/mcL Basophils # 0.1 (0.0-0.2) K/mcL Sodium 136 (136-145) mEq/L Potassium 4.1 (3.5-5.1) mEq/L Chloride 109 H (98-107) mEq/L Carbon Dioxide 22 L (23-29) mEq/L BUN 17 (6-20) mg/dL Creatinine 0.79 (0.60-1.20) mg/dL Est GFR ( Amer) > 60 (> 60) Est GFR (Non-Af Amer) > 60 (> 60) BUN/Creatinine Ratio 22 (6-26) Glucose 116 H (70-105) mg/dL Calculated Osmolality 285 (280-300) Calcium 8.5 L (8.6-10.3) mg/dL Total Bilirubin 0.3 (0.3-1.0) mg/dL AST 16 (13-39) Units/L ALT 24 (7-52) Units/L Alkaline Phosphatase 128 H (34-104) Units/L Troponin I < 0.03 (< 0.04) ng/mL B-Natriuretic Peptide (Less than 100) pg/mL Serum Total Protein 5.9 L (6.4-8.9) g/dL Albumin 3.6 (3.5-5.7) g/dL Globulin 2.3 L (2.4-3.5) g/dL Albumin/Globulin Ratio 1.6 (1.1-2.2) Urine Color (Yellow) Urine Clarity (Clear) Urine pH (5.0-8.0) pH Units Ur Specific [place] (1.010-1.025) Urine Protein (Neg-Trace) mg/dL Urine Glucose (UA) (Normal) mg/dL Urine Ketones (Negative) mg/dL Urine Blood (Negative) Urine Nitrite (Negative) Urine Bilirubin (Negative) Urine Urobilinogen (Normal) mg/dL Ur Leukocyte Esterase (Negative) Urine Microscopic RBC (0-3) per hpf Urine Microscopic WBC (0-3) per hpf Ur Squamous Epith Cells (None-Few) per lpf Urine Bacteria (None-Few) per hpf Hyaline Casts (None-Few) per lpf Ur Culture Indicated? (NO) 11/15/17 11/15/17 Range/Units 15:50 18:07 WBC (4.3-11.1) K/mcL RBC (3.82-4.97) M/mcL Hgb (11.5-15.4) g/dL Hct (35.3-44.9) % MCV (83.0-100.0) fL MCH (28.0-33.3) pg MCHC (31.6-35.5) g/dL RDW (11.5-14.5) % Plt Count (140-400) K/mcL MPV (9.4-12.4) fL Immature Gran % (0-4) % Seg Neutrophils % % Lymphocytes % % Monocytes % % Eosinophils % % Basophils % % Neutrophils # (1.6-8.9) K/mcL Lymphocytes # (0.6-4.6) K/mcL Monocytes # (0.0-1.3) K/mcL Eosinophils # (0.0-0.6) K/mcL Basophils # (0.0-0.2) K/mcL Sodium (136-145) mEq/L Potassium (3.5-5.1) mEq/L Chloride (98-107) mEq/L Carbon Dioxide (23-29) mEq/L BUN (6-20) mg/dL Creatinine (0.60-1.20) mg/dL Est GFR ( Amer) (> 60) Est GFR (Non-Af Amer) (> 60) BUN/Creatinine Ratio (6-26) Glucose (70-105) mg/dL Calculated Osmolality (280-300) Calcium (8.6-10.3) mg/dL Total Bilirubin (0.3-1.0) mg/dL AST (13-39) Units/L ALT (7-52) Units/L Alkaline Phosphatase (34-104) Units/L Troponin I (< 0.04) ng/mL B-Natriuretic Peptide 50 (Less than 100) pg/mL Serum Total Protein (6.4-8.9) g/dL Albumin (3.5-5.7) g/dL Globulin (2.4-3.5) g/dL Albumin/Globulin Ratio (1.1-2.2) Urine Color Yellow (Yellow) Urine Clarity Slightly Hazy (Clear) Urine pH 5.5 (5.0-8.0) pH Units Ur Specific [place] 1.019 (1.010-1.025) Urine Protein Negative (Neg-Trace) mg/dL Urine Glucose (UA) Normal (Normal) mg/dL Urine Ketones Negative (Negative) mg/dL Urine Blood Negative (Negative) Urine Nitrite Negative (Negative) Urine Bilirubin Small H (Negative) Urine Urobilinogen Normal (Normal) mg/dL Ur Leukocyte Esterase Small H (Negative) Urine Microscopic RBC 0-3 (0-3) per hpf Urine Microscopic WBC 5-15 H (0-3) per hpf Ur Squamous Epith Cells Many H (None-Few) per lpf Urine Bacteria None Seen (None-Few) per hpf Hyaline Casts Few (None-Few) per lpf Ur Culture Indicated? NO. (NO) - Radiology Data Radiology results reviewed: Yes I reviewed the patient's radiology results. Chest X-Ray 11/15/17 14:28 IMPRESSION: Minimal discoid atelectasis in the left lung base, otherwise no acute cardiopulmonary process. D/ / Drake Smyth MD / Drake Smyth MD Interpreting Provider: Drake Smyth MD - EKG Data EKG #1 EKG attestation: Yes I reviewed and interpreted this EKG. EKG results narrative: EKG showed a sinus rhythm with a prolonged [place] interval. The ventricular rate was 74 bpm, NJ interval of 210, Q mandaen of 148, QTC of 480. There was a left bundle branch block noted on EKG. This was compared to previous EKG on which showed a sinus rhythm with a left bundle branch block at a rate of 66 bpm. Attestation Statement - Attestation Attestation: I, Chris Nuñez DO, examined this patient [id number] and my medical decision-making was reviewed with Dr. Romaine Jean Baptiste, Resident Physician. I agree with the documented findings, disposition and treatment plan as described except to the extent set forth below. Please see my progress notes for details. 52-year-old female presents to emergency room complaining of chest pain pressure and irritation. Patient denies any fevers or chills nausea vomiting or diarrhea. Denies any headache or vision change. Main complaint is the chest pressure and pain. Patient is also decreased urinary output. Patient contacted her urologist and they recommended to be seen in the office. Patient did not feel she could wait that long. She decided to come in the emergency room for further evaluation. Physical exam is somewhat obese female resting comfortably in the bed in no apparent distress. Pulse ox is stable. Vital signs remained stable that the course of care. Her pain is resolved in the emergency room. Lungs are clear. Abdomen is soft nontender nondistended with no guarding no rigidity. She has no peritoneal symptoms. Patient is stating of urine output. Patient tolerated by mouth food and fluids without any difficulty walking. Patient recommended increased fluid intake at this time. Screening laboratory workup was completed with a normal CBC and chemistry panel. No acute signs of renal insufficiency. Patient stable chest x-ray and EKG. Clinically there is no acute findings concerning for cardiac pulmonary illness. Urinalysis will be completed. Disposition be determined once her workup is established. See detailed documentation of the physical exam, medical intervention, medical decision-making and disposition and the resident physician's note [id number] Detailed review of the patient's previous charts including a stress test and echo were discussed. Patient did have ischemic findings on a stress test. Echo was normal within the last month. Patient is concerning for progressive symptoms that are similar. Patient will be admitted for cardiac evaluation possible catheterization is quite concerned she has had stents. Patient is not currently having any pain at this point her troponin was negative. Patient will be admitted for definitive management.
[2017-11-15 16:26] LABS: Basophils # 0.1 K/mcL (0.0-0.2); Basophils % 0.7 %; Eosinophils # 0.1 K/mcL (0.0-0.6); Eosinophils % 1.6 %; Hematocrit 36.4 % (35.3-44.9); Hemoglobin 12.1 g/dL (11.5-15.4); Lymphocytes # 1.9 K/mcL (0.6-4.6); Lymphocytes % 23.6 %; Mean Corpuscular HGB Conc 33.2 g/dL (31.6-35.5); Mean Corpuscular Hemoglobin 28.9 pg (28.0-33.3); Mean Corpuscular Volume 87.1 fL (83.0-100.0); Mean Platelet Volume 9.6 fL (9.4-12.4); Monocytes # 0.6 K/mcL (0.0-1.3); Monocytes % 7.4 %; Neutrophils # 5.4 K/mcL (1.6-8.9); Platelet Count 213 K/mcL (140-400); Red Blood Count 4.18 M/mcL (3.82-4.97); Red Cell Distribution Width 13.7 % (11.5-14.5); Segmented Neutrophils % 65.7 %
[2017-11-15 16:30] LABS: Alanine Aminotransferase 24 Units/L (7-52); Albumin 3.6 g/dL (3.5-5.7); Albumin/Globulin Ratio 1.6 (1.1-2.2); Alkaline Phosphatase 128 Units/L (34-104); Aspartate Amino Transferase 16 Units/L (13-39); BUN/Creatinine Ratio 22 (6-26); Bilirubin,Total 0.3 mg/dL (0.3-1.0); Blood Urea Nitrogen 17 mg/dL (6-20); Calcium 8.5 mg/dL (8.6-10.3); Carbon Dioxide 22 mEq/L (23-29); Chloride 109 mEq/L (98-107); Globulin 2.3 g/dL (2.4-3.5); Glucose 116 mg/dL (70-105); Osmolality,Calculated 285 (280-300); Potassium 4.1 mEq/L (3.5-5.1); Sodium 136 mEq/L (136-145); Total Protein 5.9 g/dL (6.4-8.9); eGFR For African Americans > 60 (> 60); eGFR For Non-African Americans > 60 (> 60)
[2017-11-15 18:24] LABS: Bilirubin,Urine Small (Negative); Blood,Urine Negative (Negative); Color,Urine Yellow (Yellow); Glucose,Urine (UA) Normal (Normal); Ketones,Urine Negative (Negative); Leukocyte Esterase,Urine Small (Negative); Nitrite,Urine Negative (Negative); PH,Urine 5.5 pH Units (5.0-8.0); Protein,Urine Negative (Neg-Trace); Specific Gravity,Urine 1.019 (1.010-1.025); Urobilinogen,Urine Normal (Normal)
[2017-11-15 18:26] LABS: Bacteria,Urine None Seen per hpf (None-Few); Squamous Epithelial Cell,Urine Many per lpf (None-Few)
[2017-11-15 18:28] LABS: Clarity,Urine Slightly Hazy (Clear)
[2017-11-15 18:40] LABS: Hyaline Casts,Urine Few per lpf (None-Few); RBC,Urine 0-3 per hpf (0-3)
[2017-11-15] MEDS ORDERED: Naloxone 0.4 MG/ML INJ IVP PRN (20:41)
[2017-11-15] MEDS ORDERED: Dextrose Gel 15 GM/37.5 ML TUBE PO PRN ×2 (20:41)
[2017-11-15] MEDS ORDERED: D5% in Water 1,000 ML IVC PRN (20:41)
[2017-11-15] MEDS ORDERED: *HR* Dextrose 50 % in Water (Syg) 50 ML SYRINGE IVP PRN (20:41)
[2017-11-15] MEDS ORDERED: Ipratropium/Albuterol Neb 3 ML IH PRN (20:43)
[2017-11-15] MEDS ORDERED: Nitroglycerin 0.4 MG TAB.SUBL SL PRN (20:43)
[2017-11-15] MEDS ORDERED: GI Cocktail 40 ML EACH PO ONE (20:50)
--- NOTE | 2017-11-15 20:54 | Internal Med History&Physical ---
<Volodymyr Quigley - Last Filed: 11/15/17 20:51> Date of Encounter: 11/15/17 Time of Encounter: 20:51 Assessment and Plan (1) Chest pain Current visit: Yes Status: Acute ASSESSMENT: - Intermittent midsternal Chest pain radiation to the right shoulder and right arm etiology is unclear at this time as she does have an extensive cardiac history. Patient recently had an abnormal stress test on 06/26 with no intervention was avoids at that time due to recent CVA with TPA. Rectal management was chosen instead. She returns today with continued intermittent chest pain. Initial troponin negative and EKG unchanged from prior. I believe some of her chest pain is related to long-standing history of anxiety. Denies CP now PLAN: - cardiac enzymes x 2 q 6 hr - EKG unchanged from prior - ASA - Continue antihypertensives - O2 by NC to keep SpO2 greater than 92% - CBCD, BMP in AM - Cardiology consult d/t recent abnormal stress- days team to call Qualifiers: Chest pain type: unspecified Qualified Code(s): R07.9 - Chest pain, unspecified (2) Shortness of breath Current visit: Yes Status: Acute Chronic, short of breath at baseline. Denies increasing oxygen flow rate, denies increase in the dilator use. -Continue bronchodilators (3) HTN (hypertension) Current visit: Yes Status: Acute Stable, resume antihypertensives Qualifiers: Hypertension type: unspecified Qualified Code(s): I10 - Essential (primary ) hypertension (4) Anxiety Current visit: Yes Status: Acute Continue Ativan (5) History of CVA (cerebrovascular accident) Current visit: No Status: Acute (6) CAD (coronary artery disease) Current visit: Yes Status: Chronic Continue aspirin, statin, metoprolol, verapamil, and Imdur Qualifiers: Coronary Disease-Associated Artery/Lesion type: [place] artery [place] vs. transplanted heart: [place] heart Associated angina: without angina Qualified Code(s): I25.10 - Atherosclerotic heart disease of [place] coronary artery without angina pectoris (7) CHF (congestive heart failure) Current visit: Yes Status: Chronic History of congestive heart failure, stable at this time chest x-ray unremarkable. Continue diuretics Qualifiers: Congestive heart failure type: diastolic Congestive heart failure chronicity: chronic Qualified Code(s): I50.32 - Chronic diastolic (congestive ) heart failure (8) COPD (chronic obstructive pulmonary disease) Current visit: Yes Status: Chronic Stable, continue bronchodilators Qualifiers: COPD type: COPD with acute exacerbation Qualified Code(s): J44.1 - Chronic obstructive pulmonary disease with (acute) exacerbation (9) Diabetes mellitus type 2 in obese Current visit: Yes Status: Chronic Sliding scale insulin coverage diabetic/cardiac diet (10) HLD (hyperlipidemia) Current visit: Yes Status: Chronic Qualifiers: Hyperlipidemia type: pure hypercholesterolemia Qualified Code(s): E78.00 - Pure hypercholesterolemia, unspecified; E78.0 - Pure hypercholesterolemia (11) PAF (paroxysmal atrial fibrillation) Current visit: Yes Status: Chronic History of PAF, continue Coumadin with pharmacy to dose. Check PT/INR now PT/ INR per pharmacy thereafter (12) Smoker Current visit: Yes Status: Chronic Daily smoker, denies wanting to quit. Nicotine patch while inpatient (13) DVT prophylaxis Current visit: Yes Status: Acute Continue Coumadin Internal Medicine - H&P: HPI Chief complaint: Chest pain with shortness of breath Admitted From: Home Plans for Post Hospital Care: Home History of present illness: Ms. Strong is a 52 year old female with a PMH of CAD, PAF, CVA, COPD, DM 2, migraines, diastolic congestive heart failure, HTN, CT with stents, TIA and anxiety as well as bipolar depression. She presents to [facility] today with intermittent chest pain and shortness of breath for the last few days. The patient states that she is having intermittent midsternal chest pain with radiation to the right arm and shoulder describes the sensation as sharp and sometimes dull. At this time she is currently not having any chest pain but is admitting to some mild shortness of breath. She denies any recent ill contacts , fevers, chills, flank pain, abdominal pain, dysuria, unilateral extremity swelling or pain, weight gain or pitting edema. She reports that she called her primary care provider who then instructed her to go to the emergency department due to intermittent chest pain. Initial troponin negative, chest x- ray unremarkable. Most recent TTE was completed on 10/27 resulting in 55% ejection fraction with moderate left ventricular diastolic dysfunction. Should be noted she has recently had an abnormal stress test on 06/26 that intervention was not recommended at that time as the patient had recently had a CVA and received TPA; medical management was a preferred treatment at that time. Past Med Surg Social Fam HX - Past Medical History Medical history: atrial fibrillation, CHF, COPD, CVA, diabetes, hyperlipidemia, hypertension, myocardial infarction, seizures, TIA Psychiatric history: anxiety, bipolar, depression, prior suicide attempt, previous psychiatric hospitalization - Past Surgical History Surgical History: angioplasty/stent, appendectomy, cholecystectomy, knee replacement - Social History Smoking Status: Current every day smoker Smokeless Tobacco Status: No Alcohol use: occasionally Drug use: none - Family History Father Family Member Ethnicity: Non- Living Status: Sister Family Member Ethnicity: Non- Living Status: Still Living Grandfather Family Member Ethnicity: Non- Living Status: Hx Family Cardiac Disorders: Yes (CT, CAD) Mother Family Member Ethnicity: Non- Living Status: Hx Family Cardiac Disorders: Yes (CHF) Hx Family Respiratory Disorders: Yes (COPD) Hx Family Cancer: No Hx Family GI Disorders: No Hx Family Endocrine Disorder: No Hx Family Neuromuscular Disorders: No Hx Family Neurologic Disorders: No Hx Family HEENT Disorders: No Hx Family Autoimmune Disorders: No Internal Medicine - H&P: Meds Budesonide/Formoterol 160/4.5 [Symbicort 160/4.5] 2 puff IH BIDR 12/30/16 [ History] Insulin ASPART [NovoLOG] 2 - 10 unit SQ TIDWM PRN 12/30/16 [History] Insulin Glargine,Hum.rec.anlog [Lantus Solostar] 36 unit SQ HS 12/30/16 [History ] Nitroglycerin [Nitrostat] 0.4 mg SL Q5M PRN 12/30/16 [History] Ranitidine HCl [Acid [employer]] 150 mg PO BID 12/30/16 [History] Tiotropium [Spiriva] 18 mcg IH DAILY 12/30/16 [History] Calcium Polycarbophil [Fibercon] 625 mg PO DAILY 03/15/17 [History] Oxygen 2 l NS HS 03/15/17 [History] LORazepam [Ativan] 0.5 mg PO HS #30 tablet 06/13/17 [Rx] hydrOXYzine pamoate [HydrOXYzine Pamoate] 50 mg PO TID #90 06/20/17 [Rx] Atorvastatin [Lipitor] 40 mg PO HS 07/03/17 [History] Quetiapine Fumarate [Seroquel] 300 mg PO HS 07/20/17 [History] Aspirin 81 mg PO DAILY #30 tab.chew 07/22/17 [Rx] Gabapentin [Neurontin] 400 mg PO TID 08/29/17 [History] Meclizine [Antivert] 12.5 mg PO BID 08/29/17 [History] Buspirone HCl [Buspar] 10 mg PO BID 09/14/17 [History] Diclofenac Sodium [Voltaren] 75 mg PO BID 09/14/17 [History] FLUoxetine HCl [Prozac] 40 mg PO BID 09/14/17 [History] Furosemide [Lasix] 20 - 40 mg PO DAILY 10/13/17 [History] Ipratropium/Albuterol Neb [Duoneb] 3 ml IH [id number] PRN 10/13/17 [History] Potassium Chloride [K-Tab ER] 10 meq PO DAILY 10/13/17 [History] Prochlorperazine Maleate [Compazine] 10 mg PO Q8HR PRN 10/13/17 [History] Isosorbide MONOnitrate (24 HR) [Imdur] 120 mg PO DAILY tab.er.24h 10/20/17 [Rx] Metoprolol XL (24 HR) Succ [Toprol Xl] 25 mg PO BID tab.er.24h 10/20/17 [Rx] Melatonin 10 mg PO HS 10/31/17 [History] Warfarin [Coumadin] 3 mg PO MOWEFR 10/31/17 [History] Warfarin [Coumadin] 4.5 mg PO SUTUTHSA 10/31/17 [History] Acetaminophen [Tylenol] 650 mg PO Q6HR PRN tablet 11/02/17 [Rx] Docusate [Colace] 100 mg PO BID #60 capsule 11/02/17 [Rx] Nicotine Patch [Nicoderm] 14 mg TD DAILY patch.td24 11/02/17 [Rx] Topiramate [Topamax] 25 mg PO HS #60 tablet 11/02/17 [Rx] Verapamil HCl [Verapamil ER] 240 mg PO DAILY #30 cap24h.pel 11/02/17 [Rx] 3 Allergy/AdvReac Type Severity Reaction Status Date / Time baclofen Allergy Itching Verified 11/15/17 14:22 ciprofloxacin [From Cipro] Allergy Hives Verified 11/15/17 14:22 latex Allergy Rash Verified 11/15/17 14:22 Penicillins Allergy Hives Verified 11/15/17 14:22 prednisone Allergy Itching Verified 11/15/17 14:22 sulfamethoxazole Allergy Hives Verified 11/15/17 14:22 [From Bactrim] trimethoprim [From Bactrim] Allergy Hives Verified 11/15/17 14:22 cefdinir AdvReac Vomiting Verified 11/15/17 14:22 Oxycodone AdvReac Hallucinati Verified 11/15/17 14:22 ng All Systems PM: A 10-system review of systems was performed and is negative for pertinent findings except as documented above in the HPI. - Constitutional Constitutional: no chills, no fever(s), no night sweats - EENT Eyes: no change in vision, no discharge, no pain, no photophobia Ears: no ear discharge, no ear pain, no tinnitus Nose, mouth and throat: no dysphagia, no nasal discharge, no neck pain, no sore throat - Cardiovascular Cardiovascular ROS IM: as per HPI, chest pain, dyspnea (Dyspneic Baseline, worsens with exertion), dyspnea on exertion, no diaphoresis, no lightheadedness , no palpitations, no syncope - Respiratory Respiratory: dyspnea, dyspnea on exertion, no cough, no wheezing, no excessive phlegm production - Gastrointestinal Gastrointestinal: no abdominal pain, no diarrhea, no hematemesis, no hematochezia, no melena, no nausea, no vomiting - Genitourinary Genitourinary: no change in urinary stream, no dysuria, no flank pain, no hematuria - Musculoskeletal Musculoskeletal ROS IM: no numbness, no tingling - Integumentary Integumentary IM: no rash, no unusual bruising - Neurological Neurological ROS: no confusion, no convulsions, no focal weakness, no numbness, no tingling, no tremor(s) - Hematologic/Lymphatic Hematologic/Lymphatic: no easy bruising - Constitutional Vitals: Temp Pulse Resp BP Pulse Ox 98.9 F 75 18 117/67 97 11/15/17 14:22 11/15/17 20:08 11/15/17 20:08 11/15/17 20:08 11/15/17 20:08 General appearance: Present: cooperative, A&O X 3, no acute distress, answers questions appropriately - Head Head exam: Present: atraumatic, normocephalic - Eye Eye exam: Present: PERRL, conjuntiva pink, sclera anicteric Pupils: Present: PERRL - Neck Neck exam general surgery: Present: supple, trachea midline. Absent: lymphadenopathy - Respiratory Respiratory exam: Present: decreased breath sounds, CTAB, prolonged expiratory phase. Absent: accessory muscle use, rales, rhonchi, wheezes, tachypnea - Cardiovascular Cardiovascular exam: Present: RRR, +S1, +S2. Absent: diastolic murmur, gallop, rubs, systolic murmur - GI/Abdominal GI/Abdominal exam: Present: normal bowel sounds, soft, no peritoneal signs. Absent: distended, tenderness - Extremities Exam Extremities exam: Present: warm, radial pulses palpable and symmetrical. Absent : calf tenderness, cyanotic, pedal edema - Neurological Exam Neurological exam: Present: CN II-XII intact, oriented X3, no focal deficits. Absent: pronater drift, facial droop, speech deficit - Skin Skin exam: Present: dry, intact Internal Med - H&P Results - Labs CBC & Chem 7: 11/15/17 15:50 11/15/17 15:50 - EKG Data -: EKG Interpreted by Myself - EKG Data EKG comments: Sinus rhythm first degree AV block 11/15/17 20:59 - Impressions Impressions Chest X-Ray 11/15/17 14:28 IMPRESSION: Minimal discoid atelectasis in the left lung base, otherwise no acute cardiopulmonary process. D/ / Drake Smyth MD / Drake Smyth MD Interpreting Provider: Drake Smyth MD <Darcy Maier - Last Filed: 11/15/17 23:41> Date of Encounter: 11/15/17 Internal Medicine - H&P: HPI History of present illness: Ms. Strong is a 52 year old female All Systems PM: A 10-system review of systems was performed and is negative for pertinent findings except as documented above in the HPI. - Constitutional Vitals: Temp Pulse Resp BP Pulse Ox 98.0 F 75 16 101/67 96 11/15/17 21:24 11/15/17 21:24 11/15/17 21:24 11/15/17 21:24 11/15/17 21:24 Internal Med - H&P Results - Labs CBC & Chem 7: 11/15/17 15:50 11/15/17 15:50 Labs: Cardiac Enzymes 11/15/17 Range/Units 22:36 Troponin I < 0.03 (< 0.04) ng/mL - Attending Attestation I have personally performed a face to face evaluation on this patient. I have reviewed and agree with the care plan provided by VLAD Quigley. History and Exam by me shows: This is a 52 y/o F with known PMH of CAD, Anxiety, complex migraine TORIBIO, multiple TIA pt who recently had abnormal stress test presented to ER today with substernal CP. Dneied any SOB. Her CP is intermittent. Now improved with Nitro SL. No SOB. Gen: A, A, O x 3 Chest : Diminished BS b/l Heart:S1S2+ No murmurs a/p 1. Acute CP on tele check serial trop..so far negative due to recent abnormal stress test she may get benefit with [facility] Card consulted NPO after mid night Held Coumadin Check PT / INR in AM
[2017-11-15] MEDS ORDERED: Diclofenac Sodium 75 MG TABLET PO SCH (21:00)
[2017-11-15] MEDS ORDERED: Budesonide/Formoterol 160/4.5 MDI IH SCH (22:00)
[2017-11-15] MEDS: *HR* LORazepam 0.5 MG TABLET PO SCH (22:38)
[2017-11-15] MEDS: Melatonin 3 MG TABLET PO SCH (22:38)
[2017-11-15] MEDS: Famotidine 20 MG TABLET PO SCH (22:38)
[2017-11-15] MEDS: Metoprolol XL (24 HR) Succ 25 MG TAB.ER.24H PO SCH (22:39)
[2017-11-15] MEDS: hydrOXYzine pamoate 25 MG CAPSULE PO SCH (22:39)
[2017-11-15] MEDS: FLUoxetine 20 MG CAPSULE PO SCH (22:39)
[2017-11-15] MEDS: Gabapentin 400 MG CAPSULE PO SCH (22:39)
[2017-11-15] MEDS: Insulin LISPRO 300 UNITS/3 ML VIAL SQ SCH (22:40)
[2017-11-15] MEDS: Topiramate 25 MG TABLET PO SCH (22:45)
[2017-11-15 22:48] LABS: INR 2.5; Prothrombin Time 27.4 Seconds (9.4-12.1)
[2017-11-15] MEDS: Insulin DETEMIR 100 UNIT/ML X5UNITS SQ SCH (22:56)
[2017-11-16 04:13] LABS: Hematocrit 35.7 % (35.3-44.9); Hemoglobin 11.8 g/dL (11.5-15.4); Mean Corpuscular HGB Conc 33.1 g/dL (31.6-35.5); Mean Corpuscular Hemoglobin 28.9 pg (28.0-33.3); Mean Corpuscular Volume 87.5 fL (83.0-100.0); Mean Platelet Volume 9.8 fL (9.4-12.4); Platelet Count 194 K/mcL (140-400); Red Blood Count 4.08 M/mcL (3.82-4.97); Red Cell Distribution Width 13.6 % (11.5-14.5)
[2017-11-16 04:20] LABS: INR 2.6; Prothrombin Time 28.7 Seconds (9.4-12.1)
[2017-11-16 04:38] LABS: BUN/Creatinine Ratio 23 (6-26); Blood Urea Nitrogen 18 mg/dL (6-20); Calcium 8.5 mg/dL (8.6-10.3); Carbon Dioxide 27 mEq/L (23-29); Chloride 111 mEq/L (98-107); Glucose 132 mg/dL (70-105); Osmolality,Calculated 296 (280-300); Sodium 141 mEq/L (136-145); eGFR For African Americans > 60 (> 60); eGFR For Non-African Americans > 60 (> 60)
[2017-11-16] MEDS: Gabapentin 400 MG CAPSULE PO SCH ×3 (08:32→20:51)
[2017-11-16] MEDS: Aspirin 81 MG TAB.CHEW PO SCH (08:32)
[2017-11-16] MEDS: hydrOXYzine pamoate 25 MG CAPSULE PO SCH ×3 (08:32→20:50)
[2017-11-16] MEDS: FLUoxetine 20 MG CAPSULE PO SCH ×2 (08:32→20:51)
[2017-11-16] MEDS: Famotidine 20 MG TABLET PO SCH (08:32)
[2017-11-16] MEDS: Metoprolol XL (24 HR) Succ 25 MG TAB.ER.24H PO SCH (08:32)
[2017-11-16] MEDS: Insulin LISPRO 300 UNITS/3 ML VIAL SQ SCH ×4 (08:33→20:49)
[2017-11-16] MEDS: Nicotine 14 MG PATCH.TD24 TD SCH (08:33)
[2017-11-16] MEDS ORDERED: Verapamil ER (24 HR) 240 MG TABLET.ER PO SCH (09:00)
[2017-11-16] MEDS ORDERED: Furosemide 20 MG TABLET PO SCH (09:00)
[2017-11-16] MEDS ORDERED: Isosorbide MONOnitrate (24 HR) 60 MG TAB.ER.24H PO SCH (09:00)
--- NOTE | 2017-11-16 11:07 | Cardiology Consult Note ---
Date of Encounter: 11/16/17 Time of Encounter: 09:30 Assessment and Plan (1) Chest pain Current Visit: Yes Status: Acute Per cardiology: -Admitted with chest pain, states occured at rest and radiated to right arm. -Troponins negative x3. -ECG with no acute changes. -Denies current chest pain. -Will increase imdur. Qualifiers: Chest pain type: unspecified Qualified Code(s): R07.9 - Chest pain, unspecified (2) Abnormal stress test Current Visit: No Status: Chronic Per cardiology: -Known abnormal stress test 06/2017 with small, very mild apex perfusion defect. -Previously planned for [facility], however developed CVA like symptoms. -Will discuss with , possible inpatient vs outpatient LHC. No urgent need for inpatient LHC. (3) CAD (coronary artery disease) Current Visit: Yes Status: Chronic Per cardiology: -Known CAD. Last LHC 01/2016 [facility] with 30-40% proximal LAD ISR, 30% proximal RCA, small diagonal 1 60% (medical management recommended). -On asa, statin, beta blokcer, imdur. -Denies current chest pain. -10/2017 TTE with LVEF 55%, moderate diastolic dysfunction, mild MR, borderline pulmonary hypertension, no segmental wall motion abnormalities. Qualifiers: Coronary Disease-Associated Artery/Lesion type: [place] artery [place] vs. transplanted heart: [place] heart Associated angina: angina presence unspecified Qualified Code(s): I25.10 - Atherosclerotic heart disease of [place] coronary artery without angina pectoris (4) PAF (paroxysmal atrial fibrillation) Current Visit: Yes Status: Chronic Per cardiology: -Known history of PAF. -On beta lizzette and calcium channel blokcer. -On coumadin for anticoagulation. -Of note, possible LHC. would need bridged due to history of CVA. -Continue telemetry. Discussion w patient/family: The assessment and plan as outlined above was discussed with the patient who expressed understanding and agreement. All questions were answered. Thank you for involving us in the care of your patient. Please call with any questions. Discussed and reviewed with . History of Present Illness Consult date: 11/15/17 Requesting physician: Volodymyr Quigley Consult reason: recurrent chest pain, abnormal stress Chief complaint: chest pain History of present illness: Ms. Strong is a 52 year old female with a relevant past medical history of COPD, HTN, DMII, CAD s/p PCI, SD, obesity, hyperlipidemia, SNEHA, CVA, Paroxysmal atrial fibrillation. Patient presented to [facility] with complaints of chest pain. Patient states pain starts at rest, however has had with exertion. Patient states pain is midsternal and radiates to right arm. Reports increased fatigue and increased shortness of breath. Patient denies current chest pain. Patient denies aggravating factors for chest pain. States pain relieved with nitro. Past Med Surg Social Fam HX - Past Medical History Attestation: Yes The following information was validated with the patient. Source: patient, old records reviewed Medical history: atrial fibrillation, CHF, COPD, CVA, diabetes, hyperlipidemia, hypertension, myocardial infarction, seizures, TIA Psychiatric history: anxiety, bipolar, depression, prior suicide attempt, previous psychiatric hospitalization - Past Surgical History Surgical History: angioplasty/stent, appendectomy, cholecystectomy, knee replacement - Social History Smoking Status: Current every day smoker Packs per day: 0.5-1 Smokeless Tobacco Status: No Alcohol use: occasionally Drug use: none - Family History Father Family Member Ethnicity: Non- Living Status: Age at : 21 Cause of : mva Sister Family Member Ethnicity: Non- Living Status: Still Living Grandfather Family Member Ethnicity: Non- Living Status: Hx Family Cardiac Disorders: Yes (SD, CAD) Mother Family Member Ethnicity: Non- Living Status: Age at : 56 Cause of : copd Hx Family Cardiac Disorders: Yes (chf) Hx Family Respiratory Disorders: Yes (copd) Hx Family Cancer: No Hx Family GI Disorders: No Hx Family Endocrine Disorder: No Hx Family Neuromuscular Disorders: No Hx Family Neurologic Disorders: No Hx Family HEENT Disorders: No Hx Family Autoimmune Disorders: No Medications and Allergies Budesonide/Formoterol 160/4.5 [Symbicort 160/4.5] 2 puff IH BIDR 12/30/16 [ History] Insulin ASPART [NovoLOG] 2 - 10 unit SQ TIDWM PRN 12/30/16 [History] Insulin Glargine,Hum.rec.anlog [Lantus Solostar] 36 unit SQ HS 12/30/16 [History ] Nitroglycerin [Nitrostat] 0.4 mg SL Q5M PRN 12/30/16 [History] Ranitidine HCl [Acid [employer]] 150 mg PO BID 12/30/16 [History] Tiotropium [Spiriva] 18 mcg IH DAILY 12/30/16 [History] Calcium Polycarbophil [Fibercon] 625 mg PO DAILY 03/15/17 [History] Oxygen 2 l NS HS 03/15/17 [History] LORazepam [Ativan] 0.5 mg PO HS #30 tablet 06/13/17 [Rx] hydrOXYzine pamoate [HydrOXYzine Pamoate] 50 mg PO TID #90 06/20/17 [Rx] Atorvastatin [Lipitor] 40 mg PO HS 07/03/17 [History] Quetiapine Fumarate [Seroquel] 300 mg PO HS 07/20/17 [History] Aspirin 81 mg PO DAILY #30 tab.chew 07/22/17 [Rx] Gabapentin [Neurontin] 400 mg PO TID 08/29/17 [History] Meclizine [Antivert] 12.5 mg PO BID 08/29/17 [History] Buspirone HCl [Buspar] 10 mg PO BID 09/14/17 [History] Diclofenac Sodium [Voltaren] 75 mg PO BID 09/14/17 [History] FLUoxetine HCl [Prozac] 40 mg PO BID 09/14/17 [History] Furosemide [Lasix] 20 - 40 mg PO DAILY 10/13/17 [History] Ipratropium/Albuterol Neb [Duoneb] 3 ml IH [id number] PRN 10/13/17 [History] Potassium Chloride [K-Tab ER] 10 meq PO DAILY 10/13/17 [History] Prochlorperazine Maleate [Compazine] 10 mg PO Q8HR PRN 10/13/17 [History] Isosorbide MONOnitrate (24 HR) [Imdur] 120 mg PO DAILY tab.er.24h 10/20/17 [Rx] Metoprolol XL (24 HR) Succ [Toprol Xl] 25 mg PO BID tab.er.24h 10/20/17 [Rx] Melatonin 10 mg PO HS 10/31/17 [History] Warfarin [Coumadin] 3 mg PO MOWEFR 10/31/17 [History] Warfarin [Coumadin] 4.5 mg PO SUTUTHSA 10/31/17 [History] Acetaminophen [Tylenol] 650 mg PO Q6HR PRN tablet 11/02/17 [Rx] Docusate [Colace] 100 mg PO BID #60 capsule 11/02/17 [Rx] Nicotine Patch [Nicoderm] 14 mg TD DAILY patch.td24 11/02/17 [Rx] Topiramate [Topamax] 25 mg PO HS #60 tablet 11/02/17 [Rx] Verapamil HCl [Verapamil ER] 240 mg PO DAILY #30 cap24h.pel 11/02/17 [Rx] 3 Allergy/AdvReac Type Severity Reaction Status Date / Time baclofen Allergy Itching Verified 11/15/17 14:22 ciprofloxacin [From Cipro] Allergy Hives Verified 11/15/17 14:22 latex Allergy Rash Verified 11/15/17 14:22 Penicillins Allergy Hives Verified 11/15/17 14:22 prednisone Allergy Itching Verified 11/15/17 14:22 sulfamethoxazole Allergy Hives Verified 11/15/17 14:22 [From Bactrim] trimethoprim [From Bactrim] Allergy Hives Verified 11/15/17 14:22 cefdinir AdvReac Vomiting Verified 11/15/17 14:22 Oxycodone AdvReac Hallucinati Verified 11/15/17 14:22 ng All Systems Review: A 10-system review of systems was performed and is negative for pertinent findings except as documented above in the HPI. - Constitutional Constitutional: fatigue - Cardiovascular Cardiovascular: as per HPI, chest pain at rest, dyspnea on exertion Physical Examination Vital Signs, Last 4 Hours Temp Pulse Resp BP Pulse Ox 11/16/17 07:44 98.2 F 79 16 105/69 96 General: Conversant, No Apparent Distress HEENT: Atraumatic, Normocephaly, Mucus Membranes Moist Neck: No JVD, Normal carotid pulses Cardiac: Reg Rate and Rhythm, Normal S1 and S2, No Murmur Lungs: Normal Breath Sounds, No Wheeze, Rales, Rhonchi Neuro: Alert and responsive, No focal deficits noted Abdomen: Soft, Non-Tender Skin: No rashes noted on visualized skin Musculoskeletal: No Chest Wall Tenderness Extremities: No Clubbing, No Cyanosis, No Edema, Normal Pulses Results 11/16/17 03:37 11/16/17 03:37 Lab Results Impressions Chest X-Ray 11/15/17 14:28 IMPRESSION: Minimal discoid atelectasis in the left lung base, otherwise no acute cardiopulmonary process. D/ / Drake Smyth MD / Drake Smyth MD Interpreting Provider: Drake Smyth MD Active Medications Acetaminophen (Tylenol) 650 mg PO Q6HR PRN PRN Reason: Mild Pain (1-3) Stop: 05/17/18 20:44 Albuterol/Ipratropium (Duoneb) 3 ml IH [id number] PRN PRN Reason: Shortness Of Breath Stop: 05/17/18 20:44 Aspirin (Aspirin) 81 mg PO DAILY SD Stop: 05/18/18 09:01 Last Admin: 11/16/17 08:32 Dose: 81 mg Atorvastatin Calcium (Lipitor) 40 mg PO HS [facility] Stop: 05/17/18 21:01 Last Admin: 11/15/17 22:39 Dose: 40 mg Buspirone HCl (Buspar) 10 mg PO BID SD Stop: 05/17/18 21:01 Last Admin: 11/16/17 08:32 Dose: 10 mg Calcium Polycarbophil (Fibercon) 625 mg PO DAILY SD Stop: 05/18/18 09:01 Last Admin: 11/16/17 08:33 Dose: 625 mg Dextrose/Water (Dextrose 50% (Syg)) 25 ml IVP AD PRN PRN Reason: Hypoglycemia Stop: 05/17/18 20:42 Docusate Sodium (Colace) 100 mg PO BID SD PRN Reason: Protocol Stop: 05/17/18 21:01 Last Admin: 11/16/17 08:31 Dose: Not Given Famotidine (Pepcid) 40 mg PO DAILY SD Stop: 05/17/18 21:01 Last Admin: 11/16/17 08:32 Dose: 40 mg Fluoxetine HCl (Prozac) 40 mg PO BID SD PRN Reason: Protocol Stop: 05/17/18 21:01 Last Admin: 11/16/17 08:32 Dose: 40 mg Gabapentin (Neurontin) 400 mg PO TID SD Stop: 05/17/18 21:01 Last Admin: 11/16/17 08:32 Dose: 400 mg Glucagon (Glucagen) 1 mg IM ONCE PRN PRN Reason: Hypoglycemia Stop: 05/17/18 20:42 Glucose (Gluctose) 15 gm PO ONCE PRN PRN Reason: Hypoglycemia Stop: 05/17/18 20:42 Glucose (Gluctose) 30 gm PO ONCE PRN PRN Reason: Hypoglycemia Stop: 05/17/18 20:42 Hydroxyzine Pamoate (Hydroxyzine Pamoate) 50 mg PO TID [facility] Stop: 05/17/18 21:01 Last Admin: 11/16/17 08:32 Dose: 50 mg Dextrose (Dextrose 5%) 1,000 mls @ 100 mls/hr IVC .Q10H PRN PRN Reason: HYPOGLYCEMIA Stop: 05/17/18 20:42 Insulin Detemir (Levemir) 36 unit SQ [facility] Stop: 05/17/18 22:46 Last Admin: 11/15/17 22:56 Dose: 36 unit Insulin Human Lispro (Humalog) 0 units SQ TIDAC [facility] PRN Reason: Protocol Stop: 05/18/18 07:31 Last Admin: 11/16/17 08:33 Dose: Not Given Insulin Human Lispro (Humalog) 0 units SQ [facility] PRN Reason: Protocol Stop: 05/17/18 21:01 Last Admin: 11/15/17 22:40 Dose: Not Given Isosorbide Mononitrate (Imdur) 120 mg PO DAILY [facility] Stop: 05/18/18 09:01 Last Admin: 11/16/17 08:32 Dose: 120 mg Lorazepam (Ativan) 0.5 mg PO [facility] Stop: 05/17/18 21:01 Last Admin: 11/15/17 22:38 Dose: 0.5 mg Meclizine HCl (Antivert) 12.5 mg PO BID [facility] Stop: 05/17/18 21:01 Last Admin: 11/16/17 08:32 Dose: 12.5 mg Melatonin (Melatonin) 9 mg PO [facility] Stop: 05/17/18 21:01 Last Admin: 11/15/17 22:38 Dose: 9 mg Metoprolol Succinate (Toprol Xl) 25 mg PO BID [facility] Stop: 05/17/18 21:01 Last Admin: 11/16/17 08:32 Dose: 25 mg Naloxone HCl (Narcan) 0.4 mg IVP Q2MIN PRN PRN Reason: SEE COMMENTS Stop: 05/17/18 20:42 Nicotine (Nicoderm) 14 mg TD DAILY [facility] PRN Reason: Protocol Stop: 05/18/18 09:01 Last Admin: 11/16/17 08:33 Dose: 14 mg Nitroglycerin (Nitroglycerin) 0.4 mg SL Q5M PRN PRN Reason: Chest Pain Stop: 05/17/18 20:44 Potassium Chloride (Potassium Chloride) 10 meq PO DAILY [place] Stop: 05/18/18 09:01 Last Admin: 11/16/17 08:32 Dose: 10 meq Prochlorperazine Maleate (Compazine) 10 mg PO Q8HR PRN PRN Reason: Nausea Stop: 05/17/18 20:44 Quetiapine Fumarate (Seroquel) 300 mg PO HS [facility] Stop: 05/17/18 21:01 Last Admin: 11/15/17 22:39 Dose: 300 mg Tiotropium [place] (Spiriva) 18 mcg IH DAILY [facility] Stop: 05/18/18 09:01 Last Admin: 11/16/17 11:12 Dose: 18 mcg Topiramate (Topamax) 25 mg PO HS [facility] Stop: 05/17/18 22:46 Last Admin: 11/15/17 22:45 Dose: 25 mg Verapamil HCl (Calan Sr) 240 mg PO DAILY [facility] Stop: 05/18/18 09:01 Last Admin: 11/16/17 08:32 Dose: 240 mg Laboratory Tests 11/15/17 11/15/17 11/16/17 15:50 22:36 03:37 Hgb INR Creatinine Troponin I < 0.03 < 0.03 < 0.03 11/16/17 11/16/17 11/16/17 03:37 03:37 03:37 Hgb 11.8 INR 2.6 Creatinine 0.80 Troponin I - Imaging and Cardiology Chest Xray: report reviewed Stress Test: report reviewed Echo: report reviewed - EKG Interpretation EKG results cardiology: personally reviewed (ECG with SR, first degree AV block , Left BBB, HR 74.), other (Telemetry reviewed with average HR previous 12 hours noted to be 72, SR. PVCs and PACs noted.) Consult Discharge Plan - Plan Referrals: Mauriiso Ward MD [Primary Care Provider] -
[2017-11-16] MEDS: Tiotropium 18 MCG inhalation IH SCH (11:12)
[2017-11-16] MEDS: Acetaminophen 325 MG TABLET PO PRN (11:31)
--- NOTE | 2017-11-16 12:11 | Electrocardiograph Report ---
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
[2017-11-16] MEDS ORDERED: 0.9 % Sodium Chloride 500 ML ONE (12:47)
[2017-11-16] MEDS ORDERED: 0.9 % Sodium Chloride 500 ML IVC ONE ×2 (12:49→16:19)
--- NOTE | 2017-11-16 14:53 | Event Note ---
Date of Encounter: 11/16/17 Time of Encounter: 14:50 - Cardiology Event Note Called to patient's bedside due to recurrent chest pain. C/o midsternal chest discomfort and dizziness. Noted to have hypotension with b/p 85/53. 250 cc saline bolus given per primary team. EKG completed and shows SR LBBB. No cange from previous EKG. Imdur recently increased for chest pain. WIll decrease back to previous dose. I will discuss proceeding with [facility] while in-patient with Dr. Betancur. She will require IV lovenox bridge for coumadin once INR less than 2.0.
[2017-11-16] MEDS ORDERED: 0.9 % Sodium Chloride 1,000 ML ONE (16:02)
[2017-11-16] MEDS ORDERED: 0.9 % Sodium Chloride 1,000 ML IVC SCH (16:45)
[2017-11-16] MEDS ORDERED: Ketorolac 30 MG/ML VIAL IVP ONE (16:49)
[2017-11-16] MEDS ORDERED: Metoclopramide 10 MG/2 ML VIAL IVP ONE (16:49)
--- NOTE | 2017-11-16 16:54 | Internal Med Progress Note ---
Date of Encounter: 11/16/17 Time of Encounter: 16:52 - Assessment and plan (1) Headache Current Visit: Yes Status: Chronic Assessment and plan: Patient states she has migraine headaches Tylenol was ineffective as well as her home Topamax We will try the migraine cocktail 1 Qualifiers: Headache type: unspecified Qualified Code(s): R51 - Headache (2) Abnormal stress test Current Visit: No Status: Chronic Assessment and plan: Per cardiology: -Known abnormal stress test 06/2017 with small, very mild apex perfusion defect. -Previously planned for [facility], however developed CVA like symptoms. (3) CAD (coronary artery disease) Current Visit: Yes Status: Chronic Assessment and plan: Continue aspirin, statin, metoprolol, verapamil, and Imdur Qualifiers: Coronary Disease-Associated Artery/Lesion type: [place] artery [place] vs. transplanted heart: [place] heart Associated angina: angina presence unspecified Qualified Code(s): I25.10 - Atherosclerotic heart disease of [place] coronary artery without angina pectoris (4) Chest pain Current Visit: Yes Status: Acute Assessment and plan: Per cardiology: -Admitted with chest pain, states occured at rest and radiated to right arm. -Troponins negative x3. -ECG with no acute changes. -Recurrent chest pain, cardiology called and came to bedside due to recurrent chest pain. C/o midsternal chest discomfort and dizziness. Noted to have hypotension with b/p 85/53. 250 cc saline bolus given per primary team. EKG completed and shows SR LBBB. No change from previous EKG. Imdur recently increased for chest pain. WIll decrease back to previous dose. Will discuss proceeding with [facility] while in-patient with Dr. Betancur. She will require IV lovenox bridge for coumadin once INR less than 2.0. Qualifiers: Chest pain type: unspecified Qualified Code(s): R07.9 - Chest pain, unspecified (5) Morbid obesity with BMI of 45.0-49.9, adult Current Visit: No Status: Chronic (6) Hypotension Current Visit: Yes Status: Acute Assessment and plan: Patient complained of dizziness, headache and was found to have a low blood pressure, given a bolus of normal saline. Cardiology came by and lowered her and/or dose. Blood pressure continues to be low with complaints of lightheadedness. Another 500 mL bolus was given and then a normal saline drip was started continuously overnight as the patient will be nothing by mouth Qualifiers: Hypotension type: unspecified hypotension type Qualified Code(s): I95.9 - Hypotension, unspecified - Subjective Interval history: The patient was seen by cardiology and is aware of the plan of care. She continues to complain of some intermittent chest pain, dizziness, and migraine headache. He denies shortness of breath, fever, chills, abdominal pain, or syncope. She does also complain of inability to void since last night. - Constitutional Vitals: Temp Pulse Resp BP Pulse Ox 98.3 F 68 16 89/56 98 11/16/17 15:54 11/16/17 15:54 11/16/17 15:54 11/16/17 15:54 11/16/17 15:54 General appearance: Present: cooperative, A&O X 3, morbidly obese, no acute distress, answers questions appropriately - Head Head exam: Present: atraumatic, normocephalic - Eye Eye exam: Present: PERRL, conjuntiva pink, sclera anicteric Pupils: Present: PERRL - Neck Neck exam general surgery: Present: supple, trachea midline. Absent: lymphadenopathy - Respiratory Respiratory exam: Present: CTAB. Absent: accessory muscle use, rales, rhonchi, wheezes - Cardiovascular Cardiovascular exam: Present: RRR, +S1, +S2. Absent: diastolic murmur, gallop, rubs, systolic murmur - GI/Abdominal GI/Abdominal exam: Present: normal bowel sounds, soft, no peritoneal signs. Absent: distended, tenderness - Extremities Exam Extremities exam: Present: warm, radial pulses palpable and symmetrical. Absent : calf tenderness, cyanotic, pedal edema - Neurological Exam Neurological exam: Present: CN II-XII intact, oriented X3, no focal deficits. Absent: pronater drift, facial droop, speech deficit - Skin Skin exam: Present: dry, intact, warm Internal Medicine: Result - Labs CBC & Chem 7: 11/16/17 03:37 11/16/17 03:37 Labs: Short CBC 11/16/17 Range/Units 03:37 WBC 6.3 (4.3-11.1) K/mcL Hgb 11.8 (11.5-15.4) g/dL Hct 35.7 (35.3-44.9) % Plt Count 194 (140-400) K/mcL BMP 11/16/17 03:37 Sodium 141 Potassium 4.0 Chloride 111 H Carbon Dioxide 27 BUN 18 Creatinine 0.80 Glucose 132 H Calcium 8.5 L Cardiac Enzymes 11/15/17 11/16/17 Range/Units 22:36 03:37 Troponin I < 0.03 < 0.03 (< 0.04) ng/mL - ABG Interpretation ABG results: PT/INR, D-dimer PT 28.7 Seconds (9.4-12.1) H 11/16/17 03:37 - VTE Documentation of Mechanical Device: Intermittent pneumatic compression device Consult Discharge Plan - Plan Referrals: Maurisio Ward MD [Primary Care Provider] -
[2017-11-16] MEDS ORDERED: Warfarin perPT PO PRN (18:00)
[2017-11-16] MEDS: Insulin DETEMIR 100 UNIT/ML X5UNITS SQ SCH (20:48)
[2017-11-16] MEDS: *HR* LORazepam 0.5 MG TABLET PO SCH (20:49)
[2017-11-16] MEDS: Melatonin 3 MG TABLET PO SCH (20:51)
[2017-11-16] MEDS: Topiramate 25 MG TABLET PO SCH (20:51)
[2017-11-16] MEDS: 0.9 % Sodium Chloride 1,000 ML IVC SCH (21:24)
[2017-11-17] MEDS ORDERED: Metoclopramide 10 MG/2 ML VIAL IVP ONE (02:26)
[2017-11-17] MEDS ORDERED: Ketorolac 30 MG/ML VIAL IVP ONE (02:26)
[2017-11-17] MEDS: Tiotropium 18 MCG inhalation IH SCH (07:56)
[2017-11-17] MEDS: Insulin LISPRO 300 UNITS/3 ML VIAL SQ SCH ×4 (08:12→21:33)
[2017-11-17] MEDS: 0.9 % Sodium Chloride 1,000 ML IVC SCH (08:13)
[2017-11-17] MEDS: Famotidine 20 MG TABLET PO SCH (08:14)
[2017-11-17] MEDS: Aspirin 81 MG TAB.CHEW PO SCH (08:14)
[2017-11-17] MEDS: Gabapentin 400 MG CAPSULE PO SCH ×3 (08:14→21:30)
[2017-11-17] MEDS: hydrOXYzine pamoate 25 MG CAPSULE PO SCH ×3 (08:14→21:32)
[2017-11-17] MEDS: FLUoxetine 20 MG CAPSULE PO SCH ×2 (08:14→21:31)
[2017-11-17] MEDS: Nicotine 14 MG PATCH.TD24 TD SCH (08:14)
[2017-11-17 08:30] LABS: Hematocrit 35.8 % (35.3-44.9); Hemoglobin 11.2 g/dL (11.5-15.4); Mean Corpuscular HGB Conc 31.3 g/dL (31.6-35.5); Mean Corpuscular Hemoglobin 28.6 pg (28.0-33.3); Mean Corpuscular Volume 91.6 fL (83.0-100.0); Mean Platelet Volume 9.6 fL (9.4-12.4); Platelet Count 188 K/mcL (140-400); Red Blood Count 3.91 M/mcL (3.82-4.97); Red Cell Distribution Width 13.6 % (11.5-14.5)
[2017-11-17 08:46] LABS: BUN/Creatinine Ratio 16 (6-26); Blood Urea Nitrogen 12 mg/dL (6-20); Calcium 7.8 mg/dL (8.6-10.3); Carbon Dioxide 22 mEq/L (23-29); Chloride 116 mEq/L (98-107); Glucose 87 mg/dL (70-105); Osmolality,Calculated 289 (280-300); Potassium 4.5 mEq/L (3.5-5.1); Sodium 140 mEq/L (136-145); eGFR For African Americans > 60 (> 60); eGFR For Non-African Americans > 60 (> 60)
[2017-11-17 08:54] LABS: INR 2.2; Prothrombin Time 23.7 Seconds (9.4-12.1)
[2017-11-17] MEDS ORDERED: Isosorbide MONOnitrate (24 HR) 60 MG TAB.ER.24H PO SCH ×2 (09:00)
--- NOTE | 2017-11-17 10:14 | Cardiology Progress Note ---
Date of Encounter: 11/17/17 Time of Encounter: 09:30 Assessment and Plan (1) Chest pain Current Visit: Yes Status: Acute Per cardiology: -Admitted with chest pain, states occured at rest and radiated to right arm. -Troponins negative x3. -ECG and repeat ECG with no acute changes -Patient was asleep upon entering room, Reports some mild chest pain this morning after being woke up. -Currently medications have been held due to hypotension. Imdur was decreased due to hypotension. -Plan for LHC this admission, when able to due INR. INR 2.2 today. -Will obtain ECG now. -Discussed and reviewed with , will start ranexa since this medication has less BP affects. -Will make NPO after midnight for possible LHC in am. -Recommend lovenox bridge when INR less than 2. -Will repeat labs in am. Qualifiers: Chest pain type: unspecified Qualified Code(s): R07.9 - Chest pain, unspecified (2) Abnormal stress test Current Visit: No Status: Chronic Per cardiology: -Known abnormal stress test 06/2017 with small, very mild apex perfusion defect. -Previously planned for LHC, however developed CVA like symptoms. -PLan for LHC this admission, when able. (3) CAD (coronary artery disease) Current Visit: Yes Status: Chronic Per cardiology: -Known CAD. Last LHC 01/2016 [facility] with 30-40% proximal LAD ISR, 30% proximal RCA, small diagonal 1 60% (medical management recommended). -On asa, statin, imdur. Beta lizzette currently held for hypotension. -10/2017 TTE with LVEF 55%, moderate diastolic dysfunction, mild MR, borderline pulmonary hypertension, no segmental wall motion abnormalities. -PLan for LHC when able. Qualifiers: Coronary Disease-Associated Artery/Lesion type: [place] artery [place] vs. transplanted heart: [place] heart Associated angina: angina presence unspecified Qualified Code(s): I25.10 - Atherosclerotic heart disease of [place] coronary artery without angina pectoris (4) PAF (paroxysmal atrial fibrillation) Current Visit: Yes Status: Chronic Per cardiology: -Known history of PAF. -Currently SR. -On beta lizzette and calcium channel blokcer in outpatient setting, now being held due to hypotension. -On coumadin for anticoagulation in outpatient setting. INR 2.2 today. -Continue telemetry. -Hold coumadin. -Recommend lovenox when INR less than 2, due to history of CVA. Discussion w patient/family: The assessment and plan as outlined above was discussed with the patient who expressed understanding and agreement. All questions were answered. Thank you for involving us in the care of your patient. Please call with any questions. Discussed and reviewed with . Subjective Principal diagnosis: chest pain Interval history: Upon entering room, patient asleep. Upon awakening patient, patient reports she is having some mild chest pain that is about her baseline. Objective Vital Signs, Last 4 Hours Temp Pulse Resp BP Pulse Ox 11/17/17 08:42 98.8 F 62 16 94 11/17/17 07:57 18 99 11/17/17 07:32 98.5 F 81 18 98/61 97 General: Conversant, No Apparent Distress HEENT: Atraumatic, Normocephaly, Mucus Membranes Moist Neck: No JVD, Normal carotid pulses Cardiac: Reg Rate and Rhythm, Normal S1 and S2, No Murmur Lungs: Normal Breath Sounds, No Wheeze, Rales, Rhonchi Neuro: Alert and responsive, No focal deficits noted Abdomen: Soft, Non-Tender Skin: No rashes noted on visualized skin Musculoskeletal: No Chest Wall Tenderness Extremities: No Clubbing, No Cyanosis, No Edema, Normal Pulses Results 11/17/17 08:17 11/17/17 08:17 Lab Results Active Medications Acetaminophen (Tylenol) 650 mg PO Q6HR PRN PRN Reason: Mild Pain (1-3) Stop: 05/17/18 20:44 Last Admin: 11/16/17 11:31 Dose: 650 mg Albuterol/Ipratropium (Duoneb) 3 ml IH [id number] [facility] Stop: 05/19/18 10:01 Aspirin (Aspirin) 81 mg PO DAILY [facility] Stop: 05/18/18 09:01 Last Admin: 11/17/17 08:14 Dose: 81 mg Atorvastatin Calcium (Lipitor) 40 mg PO HS [facility] Stop: 05/17/18 21:01 Last Admin: 11/16/17 20:50 Dose: 40 mg Buspirone HCl (Buspar) 10 mg PO BID [facility] Stop: 05/17/18 21:01 Last Admin: 11/17/17 08:14 Dose: 10 mg Calcium Polycarbophil (Fibercon) 625 mg PO DAILY [facility] Stop: 05/18/18 09:01 Last Admin: 11/17/17 08:14 Dose: 625 mg Dextrose/Water (Dextrose 50% (Syg)) 25 ml IVP AD PRN PRN Reason: Hypoglycemia Stop: 05/17/18 20:42 Docusate Sodium (Colace) 100 mg PO BID [facility] PRN Reason: Protocol Stop: 05/17/18 21:01 Last Admin: 11/17/17 08:15 Dose: Not Given Famotidine (Pepcid) 40 mg PO DAILY [facility] Stop: 05/17/18 21:01 Last Admin: 11/17/17 08:14 Dose: 40 mg Fluoxetine HCl (Prozac) 40 mg PO BID [facility] PRN Reason: Protocol Stop: 05/17/18 21:01 Last Admin: 11/17/17 08:14 Dose: 40 mg Gabapentin (Neurontin) 400 mg PO TID [facility] Stop: 05/17/18 21:01 Last Admin: 11/17/17 08:14 Dose: 400 mg Glucagon (Glucagen) 1 mg IM ONCE PRN PRN Reason: Hypoglycemia Stop: 05/17/18 20:42 Glucose (Gluctose) 15 gm PO ONCE PRN PRN Reason: Hypoglycemia Stop: 05/17/18 20:42 Glucose (Gluctose) 30 gm PO ONCE PRN PRN Reason: Hypoglycemia Stop: 05/17/18 20:42 Hydroxyzine Pamoate (Hydroxyzine Pamoate) 50 mg PO TID [facility] Stop: 05/17/18 21:01 Last Admin: 11/17/17 08:14 Dose: 50 mg Dextrose (Dextrose 5%) 1,000 mls @ 100 mls/hr IVC .Q10H PRN PRN Reason: HYPOGLYCEMIA Stop: 05/17/18 20:42 Sodium Chloride (0.9 % Sodium Chloride) 1,000 mls @ 140 mls/hr IVC .Q7H9M [facility] Stop: 05/18/18 21:04 Last Admin: 11/17/17 08:13 Dose: 140 mls/hr Insulin Detemir (Levemir) 36 unit SQ HS [facility] Stop: 05/17/18 22:46 Last Admin: 11/16/17 20:48 Dose: 36 unit Insulin Human Lispro (Humalog) 0 units SQ TIDAC [facility] PRN Reason: Protocol Stop: 05/18/18 07:31 Last Admin: 11/17/17 08:12 Dose: Not Given Insulin Human Lispro (Humalog) 0 units SQ [facility] PRN Reason: Protocol Stop: 05/17/18 21:01 Last Admin: 11/16/17 20:49 Dose: Not Given Isosorbide Mononitrate (Imdur) 120 mg PO DAILY [facility] Stop: 05/19/18 09:01 Last Admin: 11/17/17 08:15 Dose: Not Given Lorazepam (Ativan) 0.5 mg PO [facility] Stop: 05/17/18 21:01 Last Admin: 11/16/17 20:49 Dose: 0.5 mg Meclizine HCl (Antivert) 12.5 mg PO BID [facility] Stop: 05/17/18 21:01 Last Admin: 11/17/17 08:14 Dose: 12.5 mg Melatonin (Melatonin) 9 mg PO [facility] Stop: 05/17/18 21:01 Last Admin: 11/16/17 20:51 Dose: 9 mg Naloxone HCl (Narcan) 0.4 mg IVP Q2MIN PRN PRN Reason: SEE COMMENTS Stop: 05/17/18 20:42 Nicotine (Nicoderm) 14 mg TD DAILY [facility] PRN Reason: Protocol Stop: 05/18/18 09:01 Last Admin: 11/17/17 08:14 Dose: 14 mg Nitroglycerin (Nitroglycerin) 0.4 mg SL Q5M PRN PRN Reason: Chest Pain Stop: 05/17/18 20:44 Potassium Chloride (Potassium Chloride) 10 meq PO DAILY [facility] Stop: 05/18/18 09:01 Last Admin: 11/17/17 08:14 Dose: 10 meq Prochlorperazine Maleate (Compazine) 10 mg PO Q8HR PRN PRN Reason: Nausea Stop: 05/17/18 20:44 Quetiapine Fumarate (Seroquel) 300 mg PO [facility] Stop: 05/17/18 21:01 Last Admin: 11/16/17 20:51 Dose: 300 mg Ranolazine (Ranexa) 500 mg PO BID [facility] Stop: 05/19/18 10:16 Tiotropium Telephone (Spiriva) 18 mcg IH DAILY [facility] Stop: 05/18/18 09:01 Last Admin: 11/17/17 07:56 Dose: 18 mcg Topiramate (Topamax) 25 mg PO HS [facility] Stop: 05/17/18 22:46 Last Admin: 11/16/17 20:51 Dose: 25 mg Topiramate (Topamax) 25 mg PO BID [facility] Stop: 05/19/18 10:01 Laboratory Tests 11/15/17 11/15/17 11/16/17 15:50 22:36 03:37 Hgb INR Creatinine Troponin I < 0.03 < 0.03 < 0.03 11/16/17 11/17/17 11/17/17 03:37 08:17 08:17 Hgb 11.8 11.2 L INR 2.2 Creatinine Troponin I 11/17/17 08:17 Hgb INR Creatinine 0.76 Troponin I - Imaging and Cardiology Chest Xray: report reviewed Stress Test: report reviewed Echo: report reviewed Cardiac cath: report reviewed - EKG Interpretation EKG results cardiology: other (Telemetry reviewed with average HR previous 12 hours 73, SR. PVCs and PACS noted.) - VTE Documentation of Mechanical Device: Intermittent pneumatic compression device Consult Discharge Plan - Plan Referrals: Maurisio Ward MD [Primary Care Provider] -
[2017-11-17] MEDS: Topiramate 25 MG CAP.SPRINK PO SCH ×2 (10:58→21:31)
[2017-11-17] MEDS: Acetaminophen 325 MG TABLET PO PRN ×2 (10:58→18:47)
[2017-11-17] MEDS: Ranolazine 500 MG TAB.ER.12H PO SCH ×2 (10:58→21:31)
[2017-11-17] MEDS ORDERED: Acetaminophen/Aspirin/Caffeine TABLET PO ONE (12:38)
[2017-11-17] MEDS: Ipratropium/Albuterol Neb 3 ML IH SCH ×3 (15:17→23:04)
--- NOTE | 2017-11-17 15:26 | Internal Med Progress Note ---
Date of Encounter: 11/17/17 Time of Encounter: 15:24 - Assessment and plan (1) Headache Current Visit: Yes Status: Chronic Assessment and plan: Patient states she has migraine headaches Tylenol was ineffective as well as her home Topamax She was not sure the migraine cocktail was helpful Qualifiers: Headache type: unspecified Qualified Code(s): R51 - Headache (2) Abnormal stress test Current Visit: No Status: Chronic Assessment and plan: Per cardiology: -Known abnormal stress test 06/2017 with small, very mild apex perfusion defect. -Previously planned for LHC, however developed CVA like symptoms. (3) CAD (coronary artery disease) Current Visit: Yes Status: Chronic Assessment and plan: Continue aspirin, statin, metoprolol, verapamil, and Imdur Holding Coumadin as INR and actually tries down and animal bridged to Lovenox Cardiac catheter when INR at level determined by cardiology for procedure Qualifiers: Coronary Disease-Associated Artery/Lesion type: [place] artery [place] vs. transplanted heart: [place] heart Associated angina: angina presence unspecified Qualified Code(s): I25.10 - Atherosclerotic heart disease of [place] coronary artery without angina pectoris (4) Chest pain Current Visit: Yes Status: Acute Assessment and plan: Per cardiology: -Admitted with chest pain, states occured at rest and radiated to right arm. -Troponins negative x3. -ECG with no acute changes. -Recurrent chest pain on 11/16/17 cardiology called and came to bedside due to recurrent chest pain. C/o midsternal chest discomfort and dizziness. Noted to have hypotension with b/p 85/53. 500 cc saline bolus given per primary team. EKG completed and shows SR LBBB. No change from previous EKG. Imdur recently increased for chest pain. WIll decrease back to previous dose. Will proceed with LHC while in-patient . She will require IV lovenox bridge for coumadin once INR less than 2.0. Qualifiers: Chest pain type: unspecified Qualified Code(s): R07.9 - Chest pain, unspecified (5) Morbid obesity with BMI of 45.0-49.9, adult Current Visit: No Status: Chronic (6) Hypotension Current Visit: Yes Status: Acute Assessment and plan: Patient complained of dizziness, headache and was found to have a low blood pressure, given a bolus of normal saline. Cardiology came by and lowered her imdur dose. Blood pressure continues to be low with complaints of lightheadedness. Another 500 mL bolus was given and then a normal saline drip was started continuously overnight as the patient will be nothing by mouth IV fluids ma'ed, taking diet. BP runs on low side so current blood pressure is normal baseline for her Qualifiers: Hypotension type: unspecified hypotension type Qualified Code(s): I95.9 - Hypotension, unspecified - Subjective Interval history: The patient was seen by cardiology and is aware of the plan of care. She continues to complain of some intermittent chest pain, dizziness, and migraine headache. She states she is having shortness of breath, denies fever, chills, abdominal pain, or syncope. . - Constitutional Vitals: Temp Pulse Resp BP Pulse Ox 97.9 F 63 18 129/78 96 11/17/17 10:57 11/17/17 10:57 11/17/17 10:57 11/17/17 11:45 11/17/17 10:57 General appearance: Present: cooperative, A&O X 3, morbidly obese, no acute distress, answers questions appropriately - Head Head exam: Present: atraumatic, normocephalic - Eye Eye exam: Present: PERRL, conjuntiva pink, sclera anicteric Pupils: Present: PERRL - Neck Neck exam general surgery: Present: supple, trachea midline. Absent: lymphadenopathy - Respiratory Respiratory exam: Present: decreased breath sounds, CTAB. Absent: accessory muscle use, rales, rhonchi, wheezes Additional comments: Poor inspiratory effort - Cardiovascular Cardiovascular exam: Present: RRR, +S1, +S2. Absent: diastolic murmur, gallop, rubs, systolic murmur Additional comments: Reviewed the patient's blood pressure from her last additions and she seems to run a soft blood pressure. She also is consistently in the 50s to 60s heart rate. Her blood pressure appears to be her baseline - GI/Abdominal GI/Abdominal exam: Present: normal bowel sounds, soft, no peritoneal signs. Absent: distended, tenderness - Extremities Exam Extremities exam: Present: warm, radial pulses palpable and symmetrical. Absent : calf tenderness, cyanotic, pedal edema - Neurological Exam Neurological exam: Present: CN II-XII intact, oriented X3, no focal deficits. Absent: pronater drift, facial droop, speech deficit - Skin Skin exam: Present: dry, intact, warm Internal Medicine: Result - Labs CBC & Chem 7: 11/17/17 08:17 11/17/17 08:17 Labs: Short CBC 11/17/17 Range/Units 08:17 WBC 7.6 (4.3-11.1) K/mcL Hgb 11.2 L (11.5-15.4) g/dL Hct 35.8 (35.3-44.9) % Plt Count 188 (140-400) K/mcL BMP 11/17/17 08:17 Sodium 140 Potassium 4.5 Chloride 116 H Carbon Dioxide 22 L BUN 12 Creatinine 0.76 Glucose 87 Calcium 7.8 L - ABG Interpretation ABG results: PT/INR, D-dimer PT 23.7 Seconds (9.4-12.1) H 11/17/17 08:17 - VTE Documentation of Mechanical Device: Intermittent pneumatic compression device Consult Discharge Plan - Plan Referrals: Maurisio Ward MD [Primary Care Provider] -
[2017-11-17] MEDS ORDERED: Warfarin perPT PO PRN (18:00)
[2017-11-17] MEDS ORDERED: *HR* Warfarin 3 MG TABLET PO ONE (18:00)
--- NOTE | 2017-11-17 19:41 | Electrocardiograph Report ---
[place] [id number] Test Date: 2017-11-16 Pat Name: Aliza Strong Department: 113 Room: 3B23 Gender: F District Representative: FLOWER : 1965 Requested By: Vibha Hazel Order Number: [id number] Reading MD: Jonny Betancur MD Measurements Intervals [place] Rate: 60 P: 60 MA: 204 QRS: 33 QRSD: 144 T: 75 QT: 470 QTc: 472 Interpretive Statements SINUS RHYTHM LEFT BUNDLE BRANCH BLOCK Electronically Signed On 11-17-2017 19:40:16 EST by Jonny Betancur MD
[2017-11-17] MEDS ORDERED: Maalox Oral Soln 30 mL PO PRN (21:25)
[2017-11-17] MEDS: Melatonin 3 MG TABLET PO SCH (21:31)
[2017-11-17] MEDS: *HR* LORazepam 0.5 MG TABLET PO SCH (21:31)
[2017-11-17] MEDS: Insulin DETEMIR 100 UNIT/ML X5UNITS SQ SCH (21:32)
[2017-11-17] MEDS: Mag Hydrox/Al Hydrox/Simeth 30 ML UDC PO PRN (22:52)
[2017-11-18] MEDS: Ipratropium/Albuterol Neb 3 ML IH SCH ×4 (03:11→22:25)
[2017-11-18 04:51] LABS: Hematocrit 36.9 % (35.3-44.9); Hemoglobin 12.1 g/dL (11.5-15.4); Mean Corpuscular HGB Conc 32.8 g/dL (31.6-35.5); Mean Corpuscular Hemoglobin 28.9 pg (28.0-33.3); Mean Corpuscular Volume 88.3 fL (83.0-100.0); Mean Platelet Volume 9.7 fL (9.4-12.4); Platelet Count 210 K/mcL (140-400); Red Blood Count 4.18 M/mcL (3.82-4.97); Red Cell Distribution Width 13.2 % (11.5-14.5)
[2017-11-18 05:03] LABS: INR 1.8; Prothrombin Time 19.8 Seconds (9.4-12.1)
[2017-11-18 05:18] LABS: Chloride 115 mEq/L (98-107); Potassium 4.3 mEq/L (3.5-5.1); Sodium 142 mEq/L (136-145)
[2017-11-18 05:45] LABS: BUN/Creatinine Ratio 13 (6-26); Blood Urea Nitrogen 10 mg/dL (6-20); Calcium 8.3 mg/dL (8.6-10.3); Carbon Dioxide 21 mEq/L (23-29); Glucose 100 mg/dL (70-105); Osmolality,Calculated 293 (280-300); eGFR For African Americans > 60 (> 60); eGFR For Non-African Americans > 60 (> 60)
[2017-11-18] MEDS: Tiotropium 18 MCG inhalation IH SCH (07:42)
[2017-11-18] MEDS: Insulin LISPRO 300 UNITS/3 ML VIAL SQ SCH ×4 (08:13→19:51)
[2017-11-18] MEDS: Nicotine 14 MG PATCH.TD24 TD SCH (08:13)
[2017-11-18] MEDS: hydrOXYzine pamoate 25 MG CAPSULE PO SCH ×3 (08:14→19:39)
[2017-11-18] MEDS: Topiramate 25 MG CAP.SPRINK PO SCH ×2 (08:14→19:51)
[2017-11-18] MEDS: Aspirin 81 MG TAB.CHEW PO SCH (08:15)
[2017-11-18] MEDS: Ranolazine 500 MG TAB.ER.12H PO SCH ×2 (08:15→19:39)
[2017-11-18] MEDS: Famotidine 20 MG TABLET PO SCH (08:15)
[2017-11-18] MEDS: Isosorbide MONOnitrate (24 HR) 60 MG TAB.ER.24H PO SCH (08:15)
[2017-11-18] MEDS: Gabapentin 400 MG CAPSULE PO SCH ×3 (08:15→19:40)
[2017-11-18] MEDS: FLUoxetine 20 MG CAPSULE PO SCH ×2 (08:15→19:39)
[2017-11-18] MEDS ORDERED: *HR* Heparin 5,000 UNIT/ML VIAL IVP PRN ×2 (10:31)
[2017-11-18] MEDS ORDERED: Heparin 25,000 UNIT/500 ML D5W 25,000 UNIT/500 ML BAG IVC SCH (10:45)
[2017-11-18 11:00] LABS: Hematocrit 37.3 % (35.3-44.9); Hemoglobin 11.9 g/dL (11.5-15.4); Mean Corpuscular HGB Conc 31.9 g/dL (31.6-35.5); Mean Corpuscular Hemoglobin 28.4 pg (28.0-33.3); Mean Platelet Volume 9.7 fL (9.4-12.4); Platelet Count 199 K/mcL (140-400); Red Blood Count 4.19 M/mcL (3.82-4.97); Red Cell Distribution Width 13.2 % (11.5-14.5)
[2017-11-18] MEDS: Acetaminophen 325 MG TABLET PO PRN (12:38)
[2017-11-18 14:01] LABS: INR 1.7; Prothrombin Time 18.9 Seconds (9.4-12.1)
--- NOTE | 2017-11-18 14:47 | Pre-Sedation Evaluation ---
Pre-sedation evaluation - Pre-sedation checklist Date of procedure: 11/18/17 Procedure: [facility] [place] Recent Vitals: Last Vital Signs Temp 99.0 F 11/18/17 10:47 Pulse 105 11/18/17 10:47 Resp 17 11/18/17 10:47 BP 120/58 11/18/17 10:47 Pulse Ox 95 11/18/17 10:47 H&P (including ROS) documented in medical record: Yes Previous reaction to sedatives/anesthetics: No Dietary Status: NPO after Midnight Airway Assessment: Patient can open mouth completely, TMJ function normal, Micrognathia (under-bite, receding chin) absent, Neck with adequate range of motion Dentition: dentures removed Possible difficult airway: No ASA Classification *see protocol: CLASS II-Mild systemic disease Plan of Care: Pt appropriate candidate for procedure/moderate/conscious sedation , Risks/benefits of procedure/sedation discussed w/ patient/family
[2017-11-18] MEDS ORDERED: Heparin 1,000 UNITS/500 mL 500 ML ONE (14:55)
[2017-11-18] MEDS ORDERED: 0.9 % Sodium Chloride 1,000 ML ONE ×2 (14:55→15:25)
[2017-11-18] MEDS ORDERED: *HR* Heparin 10,000 UNIT/10 ML VIAL ONE (14:56)
[2017-11-18] MEDS ORDERED: Nitroglycerin 1,000 MCG/10 ML VIAL IV ONE (14:56)
[2017-11-18] MEDS ORDERED: ISOVUE-370 200 ML INFUS..BTL IV ONE (14:56)
--- NOTE | 2017-11-18 15:01 | Event Note ---
Date of Encounter: 11/18/17 Time of Encounter: 14:00 - Cardiology Event Note PLan for LHC. INR this am 1.8. Heparin drip started for bridging due to PAF with history of CVA. Repeat INR this afternoon 1.7. Discussed and reviewed with kranthi Saldana to proceed with LHC. Risks versus benefits of LHC explained to patient. Patient states understanding and agreeable to proceed. Further recommendations pending LHC.
[2017-11-18] MEDS ORDERED: *HR* Midazolam HCl 2 MG/2 ML VIAL ONE (15:24)
[2017-11-18] MEDS ORDERED: *HR* FentaNYL (PF) 100 MCG/2 ML VIAL ONE (15:25)
--- NOTE | 2017-11-18 15:57 | Event Note ---
Date of Encounter: 11/18/17 Time of Encounter: 16:00 - Cardiology Event Note LHC - nonobstructive CAD, patent stent Acceptable for discharge later today, coumadin 5mg tonight, can bridge with lovenox 1mg/kg SC q12 hours until INR therapeutic as outpatient.
--- NOTE | 2017-11-18 16:08 | Invasive Diagnostic Lab Proc ---
Name: Aliza Strong Date of Study: 11/18/2017 Date: 1965 Ht: 61.8in Medical Record#: [id number] Age: 52 Wt: 257.94lb Gender: Female BSA: 2.13 Order #: [id number] BMI: 47.47 Physicians Procedure Physician: Moon Grey MD, FACC Referring MD: Maurisio Ward MD Referring MD: Staff Name Position Time In Lai Quiñones RN Monitor 03:15 PM Kemi Piedra RN Natural Resources Engineer 03:15 PM Olga Lidia Stout RT (R) Scrub 03:15 PM Indications Indication Abnormal Test - Stress Procedures Performed Procedure L HRT ARTERY/VENTRICLE ANGIO Pre-Procedure Checklist Informed consent is complete signed and on chart. H&P is on chart. ID band is on and ID verified with patient. Patient NPO for procedure The procedure was described for the patient and questions were answered. Blood Pressure: 120/58 ECG is on chart. Rhythm: NSR Plan of Care Patient will tolerate the procedure without complications. Adequate level of comfort will be maintained. Hemodynamics will remain stable Patient will recover from procedure without complications. Respiratory function will be maintained. Cardiac rhythm will remain stable. Patient temperature will be maintained. Patient and/or family have verbalized understanding of the procedure. Patient Education Chief Complaint/Reason for Test: Cardiac Cath Developmental Category: Adult (18-64 years) Developmentally Appropriate for Age: Yes Learning Barriers: None Education Needs: Procedure Education Method: Verbal Information Taught: Cardiac Cath Educational Evaluation: Able to repeat information Intravenous Access Time IV Size Location DC'd Fluid/Drip Rate Units RN 03:14 PM 20g 1 /" Patent On Arrival Rt Antecubital 0.9NaCl 25 ml/hr Kemi Piedra RN Allergies Penicillins acetominophen cipro pcn trimethoprim Oxycodone sulfamethoxazole Latex PCN (penicillin) baclofen prednisone Ciprofloxacin Vital Signs Time BP (mmHg) HR (bpm) O2 Sat. RR (bpm) LOC 03:15 PM 120 / 58 105 95 % 17 5 = Fully awake and oriented or at pre-proc level 03:22 PM / % 5 = Fully awake and oriented or at pre-proc level 03:22 PM / % 4 = Oriented but drowsy 03:26 PM 136 / 71 111 99 % 19 03:30 PM 134 / 78 96 98 % 33 03:35 PM 141 / 83 94 98 % 16 03:40 PM 148 / 86 95 98 % 18 03:45 PM 151 / 89 96 95 % 23 03:49 PM 129 / 88 95 94 % 23 Procedural Medications Time Medication Dose Units Method Given By 03:16 PM Oxygen 3 L/min nasal cannula Kemi Piedra RN 03:34 PM Versed 2 mg Intravenous Kemi Piedra RN 03:34 PM Fentanyl 50 mcg Intravenous Kemi Piedra RN 03:40 PM Benadryl 25 mg Intravenous Kemi Piedra RN 03:41 PM Lidocaine 2% 19 ml Subcutaneous Moon Grey MD, [facility] ASA Classification: CLASS II- Mild systemic disease (i.e. well-controlled diabetes, hypertension, asthma, cigarette smoking) Shelby Score Preprocedure Postprocedure Activity 2- Moves 4 extremities sustained head lift Activity 2- Moves 4 extremities sustained head lift Circulation 2- SBP +/= 20 points of pre-anesthetic level Circulation 2- SBP +/= 20 points of pre-anesthetic level Consciousness 2- Awake and alert oriented x 3 Consciousness 2- Awake and alert oriented x 3 O2 Saturation 1- Needs O2 inhalation to maintain O2 saturation of 90% O2 Saturation 1- Needs O2 inhalation to maintain O2 saturation of 90% Respiratory 2- Able to deep breathe and cough well Respiratory 2- Able to deep breathe and cough well Total Score 9 Total Score 9 Contrast Agent: Isovue Diagnostic Contrast: 79 ml Total Contrast: 79 ml Fluoro Dose: 258 mGy Procedure Log Time Note Enter By 03:15 PM CathStat 03:15 PM Case Start 03:15 PM Pt arrived to logging rafter laborer 2 at 15:15 csmith 03:15 PM Lai Quiñones RN Position: Monitor Time in: 15:15 csmith 03:15 PM Kemi Piedra RN Position: Natural Resources Engineer Time in: 15:15 csmith 03:16 PM Olga Lidia Stout RT (R) Position: Scrub Time in: 15:15 csmith 03:16 PM Patient charges- Angio tray pack, Navilyst 3mm J, Pulse Oximetry and ACIST tubing and transducer csmith 03:16 PM ASA Class CLASS II- Mild systemic disease (i.e. well-controlled diabetes, hypertension, asthma, cigarette smoking) csmith 03:16 PM Time: 15:16 Oxygen on at 3 L/min per nasal cannula by Kemi Piedra RN csmith 03:21 PM Physician arrived 15:21 csmith 03:21 PM Meet and greet completed csmith 03:21 PM Sign in performed according to hospital policy. csmith 03:22 PM Time: 15:21 Patient comfortable and pain free: Yes csmith 03:22 PM Time: 15:22LOC: 5 = Fully awake and oriented or at pre-proc level csmith 03:24 PM Vitals capture started with the following parameters, Patient=Adult, Interval=5 min, Initial Wkrvdruu=956 mmHg, Deflation Rate=5 mmHg, Cuff placed on Right Arm 03:24 PM Recorded ECG: HR=98 Condition=Condition 1 03:26 PM HL=049 bpm, LBIL=920/71 mmhg, SpO2=99.0 %, Resp=19 B/min, Comment=st 03:27 PM Hair removed from procedure site in procedure lab using clippers. Bilateral groin prepped with Chloraprep by Ella Espinoza RN, then patient was draped. Skin intact. csmith 03:30 PM HR=96 bpm, GBFX=137/78 mmhg, SpO2=98.0 %, Resp=33 B/min, Comment=st 03:34 PM Time: 15:34 Versed 2 mg Intravenous Given by Kemi Piedra RN csmith 03:34 PM Time: 15:34 Fentanyl 50 mcg Intravenous Given by Kemi Piedra RN csmith 03:35 PM HR=94 bpm, EQXX=519/83 mmhg, SpO2=98.0 %, Resp=16 B/min, Comment=sr 03:37 PM Time: 15:22LOC: 4 = Oriented but drowsy csmith 03:37 PM Time: 15:22 Patient comfortable and pain free: Yes csmith 03:40 PM HR=95 bpm, LLWA=610/86 mmhg, SpO2=98.0 %, Resp=18 B/min, Comment=sr 03:40 PM Time out performed according to hospital policy csmith 03:40 PM Time: 15:40 Benadryl 25 mg Intravenous Given by Kemi Piedra RN csmith 03:41 PM Time: 15:41 19 ml Lidocaine 2% to right groin Subcutaneous Given by Moon Grey MD, [facility] csmith 03:41 PM Pressure channel 1 zeroed. 03:41 PM Access obtained by percutaneous puncture. 5Fr 10cm Terumo [place] sheath placed in right Femoral artery. [id number] csmith 03:42 PM 5Fr FL 4 catheter inserted over the wire DN csmith 03:42 PM 0.035 145cm Navilyst 3mmJ wire [id number] csmith 03:42 PM LCA angiography performed in multiple views. csmith 03:42 PM Recorded Pressure: Ao, HR=97, Condition=Condition 1 (Aorta) Ao 110/85/97 03:44 PM Catheter removed csmith 03:44 PM 5Fr FR 4 catheter inserted over the wire DN csmith 03:45 PM HR=96 bpm, UHMZ=685/89 mmhg, SpO2=95.0 %, Resp=23 B/min, Comment=sr 03:45 PM RCA angiography performed in multiple views. csmith 03:46 PM Catheter removed csmith 03:46 PM 5Fr Pigtail catheter inserted over the wire DN csmith 03:46 PM Catheter selectively placed in left ventricle csmith 03:47 PM Pressure channel 1 zeroed. 03:47 PM Recorded Pressure: LV, HR=93, Condition=Condition 1 (Left Ventricle) LV 111/22/24 03:47 PM Bolus angiogram of left Ventricle complete: 8 ml/sec for a total of 24 mls csmith 03:48 PM Recorded Pressure: LV, Ao, HR=95, Condition=Condition 1 (Left Ventricle) LV 114/44/43, (Aorta) Ao 108/78/93 03:48 PM Catheter removed csmith 03:48 PM Wire removed csmith 03:49 PM Bolus angiogram of right Femoral complete: 4 ml/sec for a total of 7 mls csmith 03:49 PM HR=95 bpm, ZRMA=305/88 mmhg, SpO2=94.0 %, Resp=23 B/min, Comment=sr 03:51 PM Procedure completed at 15:51 csmith 03:51 PM Did you address MICHEAL flow and Dominance? Yes csmith 03:52 PM Sign out completed: Radiation Dose 258 mGy Fluoro Time: 2 Isovue 370 - 200ml contrast 79 ml given by Moon Grey MD, [facility]. Complications: NoneCardiac Rehab Consult needed: NoConfirmed administered medications: Yes csmith 03:52 PM Procedure start 15:15 csmith 03:53 PM Isovue 370 - 200ml,1 Bottle(s) used. csmith 03:53 PM Arterial sheath pulled, Mynx closure device used and was Successful [id number] S/N. csmith 03:53 PM Estimated Blood Loss: minimal csmith 03:53 PM Post ECG NSR csmith 03:53 PM Post Blood Pressure 129/88 csmith 03:53 PM 15:53 Post Pulses Bilateral DP & PT 2+ csmith 03:53 PM Information taught Cardiac Cath and Mynx csmith 03:54 PM Education needs Responsibilities of Patient in Care csmith 03:54 PM Learning barriers :None csmith 03:54 PM Education Methods Verbal csmith 03:54 PM Education evaluation Able to repeat information csmith 03:54 PM Site status No bleeding/hematoma - Rt Groin as reported by Olga Lidia Stout RT (R) at 15:54 csmith 03:55 PM Plavix, Effient or Brilinta given No csmith 03:55 PM Delay to floor No csmith 03:55 PM NO family available for physician to talk with csmith 03:56 PM Coronary Dominance: right csmith 03:56 PM Lesion found in LMCA. Pre Stenosis: 25 Pre MICHEAL Flow: csmith 03:57 PM Lesion found in Proximal LAD. Pre Stenosis: 15 Pre MICHEAL Flow: csmith 03:57 PM Lesion found in Proximal RCA. Pre Stenosis: 30 Pre MICHEAL Flow: csmith 03:57 PM Lesion found in Mid RCA. Pre Stenosis: 40 Pre MICHEAL Flow: csmith 03:57 PM Lesion found in Proximal Circumflex. Pre Stenosis: 20 Pre MICHEAL Flow: csmith 04:01 PM Patient out of room: 16:01 csmith 04:01 PM Report given to Lizzie GARAY Pt taken to Room #. 16:01 [facility] Complications Complication None Hemodynamics Pressures Site Systolic/A Wave Diastolic/V Wave Mean AO 110 85 97 LV 111 22 24 LV 114 44 43 AO 108 78 93 Post Procedure Information Blood Pressure: 129/88 mmHg Rhythm: NSR Post procedural instructions were given Closure Device Time Device Success/Fail MynxGrip Successful Site Checks Time Location Status Staff Sheath In? Note 03:54 PM Rt Groin No bleeding/hematoma Olga Lidia Stout RT (R) Pulses Time Site Pre-Procedure Post-Procedure Note 11/18/2017 3:15:00 PM Bilateral DP & PT 2+ 11/18/2017 3:15:00 PM Bilateral radial 2+ 3:53:00 PM Bilateral DP & PT 2+ Updated by Lai Quiñones RN on 11/18/2017 4:02:34 PM electronically signed on 11/18/2017 4:03:04 PM with status of Final
--- NOTE | 2017-11-18 17:15 | Internal Med Progress Note ---
Date of Encounter: 11/18/17 Time of Encounter: 16:35 - Assessment and plan (1) Abnormal stress test Current Visit: No Status: Chronic Assessment and plan: Cardiac catheterization was completed on 11/18/17 see report below Per cardiology: -Known abnormal stress test 06/2017 with small, very mild apex perfusion defect. -Previously planned for LHC, however developed CVA like symptoms. (2) CAD (coronary artery disease) Current Visit: Yes Status: Chronic Assessment and plan: Continue aspirin, statin, metoprolol, verapamil, and Imdur Resume Coumadin with Lovenox bridge until INR is therapeutic Pharmacy is managing her Coumadin level C Qualifiers: Coronary Disease-Associated Artery/Lesion type: [place] artery [place] vs. transplanted heart: [place] heart Associated angina: angina presence unspecified Qualified Code(s): I25.10 - Atherosclerotic heart disease of [place] coronary artery without angina pectoris (3) Chest pain Current Visit: Yes Status: Acute Assessment and plan: Per cardiology: -Admitted with chest pain, states occured at rest and radiated to right arm. -Troponins negative x3. -ECG with no acute changes. -Recurrent chest pain on 11/16/17 cardiology called and came to bedside due to recurrent chest pain. C/o midsternal chest discomfort and dizziness. Noted to have hypotension with b/p 85/53. 500 cc saline bolus given per primary team. EKG completed and shows SR LBBB. No change from previous EKG. Imdur recently increased for chest pain. WIll decrease back to previous dose. Will proceed with LHC while in-patient . She will require IV lovenox bridge for coumadin once INR less than 2.0. Patient had cardiac catheterization 11/18/17 secondary to an abnormal stress test. The impression was a single-vessel coronary artery disease, previously stented proximal LAD widely patent. The left ventricle is normal and has normal contractility EF 55%. Cardiology recommends optimal medical therapy of her disease Aggressive risk factor modifications with the following risk factors CVA, TIA, anxiety, seizures, A. fib, diabetes, hypertension, smoker Coumadin has been resumed at 5 mg and and pharmacological management. She will be bridged with Lovenox which has been started tonight. The heparin drip was discontinued by cardiology today Qualifiers: Chest pain type: unspecified Qualified Code(s): R07.9 - Chest pain, unspecified (4) Morbid obesity with BMI of 45.0-49.9, adult Current Visit: No Status: Chronic (5) Hypotension Current Visit: Yes Status: Acute Assessment and plan: Patient complained of dizziness, headache and was found to have a low blood pressure, given a bolus of normal saline. Cardiology came by and lowered her imdur dose. Blood pressure continues to be low with complaints of lightheadedness. Another 500 mL bolus was given and then a normal saline drip was started continuously overnight as the patient will be nothing by mouth IV fluids sd'ed, taking diet. BP runs on low side so current blood pressure is normal baseline for her Blood pressure as at her normal limits Qualifiers: Hypotension type: unspecified hypotension type Qualified Code(s): I95.9 - Hypotension, unspecified (6) Headache Current Visit: No Status: Chronic Assessment and plan: Patient states she has migraine headaches, currently no headache l Qualifiers: Headache type: unspecified Intractability: not intractable Qualified Code (s): R51 - Headache (7) DVT prophylaxis Current Visit: Yes Status: Acute Assessment and plan: Patient's INR was therapeutic until today she is now on Lovenox to Coumadin bridge - Subjective Interval history: The patient is lying in bed in no distress. She returned from her cardiac catheterization a little earlier this afternoon. She is chest pain-free with no headache at this time. She still has a Coleman catheter for urinary retention that will be just and discontinue when she is allowed to get off bedrest. She is aware of that. I also told her to get up in the chair and try to move around some. She is in agreement to do that as well I told her the plan was to restart her Coumadin and bridge her with Lovenox until her Coumadin is at a therapeutic level. She is aware of her findings and has no questions. - Constitutional Vitals: Temp Pulse Resp BP Pulse Ox 99.0 F 105 17 120/58 95 11/18/17 10:47 11/18/17 10:47 11/18/17 10:47 11/18/17 10:47 11/18/17 10:47 General appearance: Present: cooperative, A&O X 3, morbidly obese, no acute distress, answers questions appropriately - Head Head exam: Present: atraumatic, normocephalic - Eye Eye exam: Present: PERRL, conjuntiva pink, sclera anicteric Pupils: Present: PERRL - Neck Neck exam general surgery: Present: supple, trachea midline. Absent: lymphadenopathy - Respiratory Respiratory exam: Present: CTAB. Absent: accessory muscle use, rales, rhonchi, wheezes - Cardiovascular Cardiovascular exam: Present: RRR, +S1, +S2. Absent: diastolic murmur, gallop, rubs, systolic murmur - GI/Abdominal GI/Abdominal exam: Present: normal bowel sounds, soft, no peritoneal signs. Absent: distended, tenderness - Extremities Exam Extremities exam: Present: warm, radial pulses palpable and symmetrical. Absent : calf tenderness, cyanotic, pedal edema Additional comments: Cath Site without hematoma - Neurological Exam Neurological exam: Present: CN II-XII intact, oriented X3, no focal deficits. Absent: pronater drift, facial droop, speech deficit - Skin Skin exam: Present: dry, intact, warm Internal Medicine: Result - Labs CBC & Chem 7: 11/18/17 10:42 11/18/17 04:27 Labs: Short CBC 11/18/17 11/18/17 Range/Units 04:27 10:42 WBC 10.6 10.1 (4.3-11.1) K/mcL Hgb 12.1 11.9 (11.5-15.4) g/dL Hct 36.9 37.3 (35.3-44.9) % Plt Count 210 199 (140-400) K/mcL BMP 11/18/17 04:27 Sodium 142 Potassium 4.3 Chloride 115 H Carbon Dioxide 21 L BUN 10 Creatinine 0.80 Glucose 100 Calcium 8.3 L - ABG Interpretation ABG results: PT/INR, D-dimer PT 18.9 Seconds (9.4-12.1) H 11/18/17 13:10 - VTE Documentation of Mechanical Device: Intermittent pneumatic compression device Consult Discharge Plan - Plan Referrals: Maurisio Ward MD [Primary Care Provider] -
[2017-11-18] MEDS: *HR* Enoxaparin 120 MG/0.8 ML SYRINGE SQ SCH (17:42)
[2017-11-18] MEDS ORDERED: *HR* Warfarin 5 MG TABLET PO ONE (18:00)
[2017-11-18] MEDS: Melatonin 3 MG TABLET PO SCH (19:39)
[2017-11-18] MEDS: *HR* LORazepam 0.5 MG TABLET PO SCH (19:40)
[2017-11-18] MEDS: Insulin DETEMIR 100 UNIT/ML X5UNITS SQ SCH (19:40)
[2017-11-18] MEDS: 0.9 % Sodium Chloride 1,000 ML IVC SCH (20:14)
[2017-11-18] MEDS: Ibuprofen 600 MG TABLET PO PRN (21:34)
[2017-11-19] MEDS: Ipratropium/Albuterol Neb 3 ML IH SCH ×4 (03:38→21:47)
[2017-11-19 05:06] LABS: Basophils # 0.1 K/mcL (0.0-0.2); Basophils % 0.5 %; Eosinophils # 0.2 K/mcL (0.0-0.6); Eosinophils % 1.8 %; Hematocrit 35.1 % (35.3-44.9); Hemoglobin 11.5 g/dL (11.5-15.4); Immature Granulocytes % 1.3 % (0-4); Lymphocytes # 2.2 K/mcL (0.6-4.6); Mean Corpuscular HGB Conc 32.8 g/dL (31.6-35.5); Mean Corpuscular Hemoglobin 28.8 pg (28.0-33.3); Mean Platelet Volume 9.9 fL (9.4-12.4); Monocytes % 9.5 %; Neutrophils # 7.3 K/mcL (1.6-8.9); Platelet Count 194 K/mcL (140-400); Red Blood Count 3.99 M/mcL (3.82-4.97); Red Cell Distribution Width 13.1 % (11.5-14.5); Segmented Neutrophils % 66.9 %
[2017-11-19 05:26] LABS: BUN/Creatinine Ratio 13 (6-26); Blood Urea Nitrogen 12 mg/dL (6-20); Calcium 8.6 mg/dL (8.6-10.3); Carbon Dioxide 21 mEq/L (23-29); Chloride 111 mEq/L (98-107); Glucose 126 mg/dL (70-105); INR 1.5; Osmolality,Calculated 289 (280-300); Potassium 3.8 mEq/L (3.5-5.1); Prothrombin Time 16.5 Seconds (9.4-12.1); Sodium 139 mEq/L (136-145); eGFR For African Americans > 60 (> 60); eGFR For Non-African Americans > 60 (> 60)
[2017-11-19] MEDS: *HR* Enoxaparin 120 MG/0.8 ML SYRINGE SQ SCH ×2 (06:02→18:23)
[2017-11-19] MEDS: Insulin LISPRO 300 UNITS/3 ML VIAL SQ SCH ×4 (08:22→20:15)
[2017-11-19] MEDS: Nicotine 14 MG PATCH.TD24 TD SCH (08:36)
[2017-11-19] MEDS: hydrOXYzine pamoate 25 MG CAPSULE PO SCH ×3 (08:37→20:15)
[2017-11-19] MEDS: FLUoxetine 20 MG CAPSULE PO SCH ×2 (08:37→20:14)
[2017-11-19] MEDS: Isosorbide MONOnitrate (24 HR) 60 MG TAB.ER.24H PO SCH (08:37)
[2017-11-19] MEDS: Ranolazine 500 MG TAB.ER.12H PO SCH ×2 (08:37→20:14)
[2017-11-19] MEDS: Gabapentin 400 MG CAPSULE PO SCH ×3 (08:37→20:14)
[2017-11-19] MEDS: Topiramate 25 MG CAP.SPRINK PO SCH ×2 (08:37→20:14)
[2017-11-19] MEDS: Aspirin 81 MG TAB.CHEW PO SCH (08:37)
[2017-11-19] MEDS: Famotidine 20 MG TABLET PO SCH (08:38)
--- NOTE | 2017-11-19 10:33 | Internal Med Progress Note ---
Date of Encounter: 11/19/17 Time of Encounter: 10:29 - Assessment and plan (1) Abnormal stress test Current Visit: No Status: Chronic Assessment and plan: Cardiac catheterization was completed on 11/18/17 see report below No further chest pain Per cardiology: -Known abnormal stress test 06/2017 with small, very mild apex perfusion defect. -Previously planned for LHC, however developed CVA like symptoms. (2) CAD (coronary artery disease) Current Visit: Yes Status: Chronic Assessment and plan: Continue aspirin, statin, metoprolol, verapamil, and Imdur Coumadin with Lovenox bridge until INR is therapeutic Pharmacy is managing her Coumadin level C Qualifiers: Coronary Disease-Associated Artery/Lesion type: [place] artery [place] vs. transplanted heart: [place] heart Associated angina: angina presence unspecified Qualified Code(s): I25.10 - Atherosclerotic heart disease of [place] coronary artery without angina pectoris (3) Chest pain Current Visit: Yes Status: Acute Assessment and plan: Per cardiology: -Admitted with chest pain, states occured at rest and radiated to right arm. -Troponins negative x3. -ECG with no acute changes. -Recurrent chest pain on 11/16/17 cardiology called and came to bedside due to recurrent chest pain. C/o midsternal chest discomfort and dizziness. Noted to have hypotension with b/p 85/53. 500 cc saline bolus given per primary team. EKG completed and shows SR LBBB. No change from previous EKG. Imdur recently increased for chest pain. WIll decrease back to previous dose. Will proceed with LHC while in-patient . She will require IV lovenox bridge for coumadin once INR less than 2.0. Patient had cardiac catheterization 11/18/17 secondary to an abnormal stress test. The impression was a single-vessel coronary artery disease, previously stented proximal LAD widely patent. The left ventricle is normal and has normal contractility EF 55%. Cardiology recommends optimal medical therapy of her disease Aggressive risk factor modifications with the following risk factors CVA, TIA, anxiety, seizures, A. fib, diabetes, hypertension, smoker Coumadin resumed at 5 mg and and pharmacological management. She will be bridged with Lovenox which has been started tonight. The heparin drip was discontinued by cardiology INR is 1.5 today Qualifiers: Chest pain type: unspecified Qualified Code(s): R07.9 - Chest pain, unspecified (4) Morbid obesity with BMI of 45.0-49.9, adult Current Visit: No Status: Chronic (5) Hypotension Current Visit: Yes Status: Resolved Assessment and plan: Patient complained of dizziness, headache and was found to have a low blood pressure, given a bolus of normal saline. Cardiology came by and lowered her imdur dose. Blood pressure continued to be low with complaints of lightheadedness. Another 500 mL bolus was given and then a normal saline drip was started continuously overnight as the patient was nothing by mouth IV fluids dc'ed, taking diet. BP runs on low side so current blood pressure is normal baseline for her Blood pressure as at her normal limits Her dizziness and headache have resolved Qualifiers: Hypotension type: unspecified hypotension type Qualified Code(s): I95.9 - Hypotension, unspecified (6) Headache Current Visit: No Status: Chronic Assessment and plan: Patient states she has migraine headaches, currently second day of no headache l Qualifiers: Headache type: unspecified Headache chronicity pattern: chronic headache Intractability: not intractable Qualified Code(s): R51 - Headache (7) DVT prophylaxis Current Visit: Yes Status: Acute Assessment and plan: Lovenox to Coumadin bridge - Subjective Interval history: The patient is sitting on side of bed in no distress. She is chest pain-free with no headache at this time. She had Coleman catheter for urinary retention discontinued lastPM and is voiding small amounts. She has a bladder stimulator. She is utilizing lovenox as bridge with Coumadin until her INR is at a therapeutic level. She is aware of her cardiac cath findings and has no questions. She denies chest pain, headache, shortness of breath, abdominal pain or other discomfort. - Constitutional Vitals: Temp Pulse Resp BP Pulse Ox 97.6 F 60 16 101/57 95 11/19/17 06:41 11/19/17 06:41 11/19/17 06:41 11/19/17 06:41 11/19/17 06:41 General appearance: Present: cooperative, A&O X 3, morbidly obese, no acute distress, answers questions appropriately - Head Head exam: Present: atraumatic, normocephalic - Eye Eye exam: Present: PERRL, conjuntiva pink, sclera anicteric Pupils: Present: PERRL - Neck Neck exam general surgery: Present: supple, trachea midline. Absent: lymphadenopathy - Respiratory Respiratory exam: Present: CTAB. Absent: accessory muscle use, rales, rhonchi, wheezes - Cardiovascular Cardiovascular exam: Present: RRR, +S1, +S2. Absent: diastolic murmur, gallop, rubs, systolic murmur - GI/Abdominal GI/Abdominal exam: Present: normal bowel sounds, soft, no peritoneal signs. Absent: distended, tenderness - Extremities Exam Extremities exam: Present: warm, radial pulses palpable and symmetrical. Absent : calf tenderness, cyanotic, pedal edema - Neurological Exam Neurological exam: Present: CN II-XII intact, oriented X3, no focal deficits. Absent: pronater drift, facial droop, speech deficit - Skin Skin exam: Present: dry, intact, warm Internal Medicine: Result - Labs CBC & Chem 7: 11/19/17 04:30 11/19/17 04:30 Labs: Short CBC 11/18/17 11/19/17 Range/Units 10:42 04:30 WBC 10.1 10.9 (4.3-11.1) K/mcL Hgb 11.9 11.5 (11.5-15.4) g/dL Hct 37.3 35.1 L (35.3-44.9) % Plt Count 199 194 (140-400) K/mcL Neutrophils # 7.3 (1.6-8.9) K/mcL BMP 11/19/17 04:30 Sodium 139 Potassium 3.8 Chloride 111 H Carbon Dioxide 21 L BUN 12 Creatinine 0.89 Glucose 126 H Calcium 8.6 - ABG Interpretation ABG results: PT/INR, D-dimer PT 16.5 Seconds (9.4-12.1) H 11/19/17 04:30 - VTE Documentation of Mechanical Device: Intermittent pneumatic compression device Consult Discharge Plan - Plan Referrals: Maurisio Ward MD [Primary Care Provider] -
[2017-11-19] MEDS: Tiotropium 18 MCG inhalation IH SCH (10:53)
[2017-11-19] MEDS: Acetaminophen 325 MG TABLET PO PRN (14:50)
[2017-11-19] MEDS ORDERED: Acetaminophen/Aspirin/Caffeine TABLET PO ONE (17:52)
[2017-11-19] MEDS ORDERED: *HR* Warfarin 3 MG TABLET PO ONE (18:00)
[2017-11-19] MEDS ORDERED: Warfarin perPT PO PRN (18:00)
[2017-11-19] MEDS: Melatonin 3 MG TABLET PO SCH (20:14)
[2017-11-19] MEDS: *HR* LORazepam 0.5 MG TABLET PO SCH (20:14)
[2017-11-19] MEDS: Insulin DETEMIR 100 UNIT/ML X5UNITS SQ SCH (20:18)
[2017-11-19] MEDS: Ibuprofen 600 MG TABLET PO PRN (20:28)
[2017-11-19] MEDS: Mag Hydrox/Al Hydrox/Simeth 30 ML UDC PO PRN (20:29)
[2017-11-20] MEDS: Ipratropium/Albuterol Neb 3 ML IH SCH ×2 (04:15→10:34)
[2017-11-20] MEDS: *HR* Enoxaparin 120 MG/0.8 ML SYRINGE SQ SCH (05:22)
[2017-11-20] MEDS: Mag Hydrox/Al Hydrox/Simeth 30 ML UDC PO PRN (05:22)
[2017-11-20 05:39] LABS: INR 1.7; Prothrombin Time 18.9 Seconds (9.4-12.1)
[2017-11-20 06:53] VITALS: BP 123/78
[2017-11-20] MEDS: Insulin LISPRO 300 UNITS/3 ML VIAL SQ SCH (07:32)
[2017-11-20] MEDS: Famotidine 20 MG TABLET PO SCH (07:48)
[2017-11-20] MEDS: Topiramate 25 MG CAP.SPRINK PO SCH (07:48)
[2017-11-20] MEDS: Isosorbide MONOnitrate (24 HR) 60 MG TAB.ER.24H PO SCH (07:48)
[2017-11-20] MEDS: Ranolazine 500 MG TAB.ER.12H PO SCH (07:48)
[2017-11-20] MEDS: FLUoxetine 20 MG CAPSULE PO SCH (07:48)
[2017-11-20] MEDS: Gabapentin 400 MG CAPSULE PO SCH (07:48)
[2017-11-20] MEDS: Nicotine 14 MG PATCH.TD24 TD SCH (07:49)
[2017-11-20] MEDS: hydrOXYzine pamoate 25 MG CAPSULE PO SCH (07:49)
[2017-11-20] MEDS: Aspirin 81 MG TAB.CHEW PO SCH (07:49)
[2017-11-20] MEDS: Tiotropium 18 MCG inhalation IH SCH (10:34)
--- NOTE | 2017-11-20 10:57 | Discharge Summary ---
Date of Encounter: 11/20/17 Time of Encounter: 10:53 - Discharge Diagnosis (1) Abnormal stress test Priority: Primary Status: Chronic Comments: Status post left heart catheter on 11/18/17 with nonobstructive CAD and patent stent. Per cardiology: -Known abnormal stress test 06/2017 with small, very mild apex perfusion defect. -Previously planned for LHC, however developed CVA like symptoms. (2) CAD (coronary artery disease) Priority: Primary Status: Chronic Comments: Continue aspirin, statin, metoprolol, verapamil, and Imdur Coumadin with Lovenox bridge until INR is therapeutic Follow-up Dr. Umana in clinic where her INR / PT are managed Provided with a prescription for the Lovenox also well as a coupon from good Rx Qualifiers: Coronary Disease-Associated Artery/Lesion type: [place] artery [place] vs. transplanted heart: [place] heart Associated angina: angina presence unspecified Qualified Code(s): I25.10 - Atherosclerotic heart disease of [place] coronary artery without angina pectoris (3) Chest pain Priority: Primary Status: Resolved Comments: Per cardiology: -Admitted with chest pain, states occured at rest and radiated to right arm. -Troponins negative x3. -ECG with no acute changes. -Recurrent chest pain on 11/16/17 cardiology called and came to bedside due to recurrent chest pain. C/o midsternal chest discomfort and dizziness. Noted to have hypotension with b/p 85/53. 500 cc saline bolus given per primary team. EKG completed and shows SR LBBB. No change from previous EKG. Imdur recently increased for chest pain. WIll decrease back to previous dose. Will proceed with LHC while in-patient . She will require IV lovenox bridge for coumadin once INR less than 2.0. Patient had cardiac catheterization 11/18/17 secondary to an abnormal stress test. The impression was a single-vessel coronary artery disease, previously stented proximal LAD widely patent. The left ventricle is normal and has normal contractility EF 55%. Cardiology recommends optimal medical therapy of her disease Aggressive risk factor modifications with the following risk factors CVA, TIA, anxiety, seizures, A. fib, diabetes, hypertension, smoker Qualifiers: Chest pain type: unspecified Qualified Code(s): R07.9 - Chest pain, unspecified (4) Morbid obesity with BMI of 45.0-49.9, adult Priority: Secondary Status: Chronic (5) Hypotension Priority: Secondary Status: Chronic Comments: Patient complained of dizziness, headache and was found to have a low blood pressure, given a bolus of normal saline. Cardiology came by and lowered her imdur dose. Blood pressure continued to be low with complaints of lightheadedness. Another 500 mL bolus was given and then a normal saline drip was started continuously overnight as the patient was nothing by mouth IV fluids dc'ed, taking diet. BP runs on low side so current blood pressure is normal baseline for her Blood pressure as at her normal limits Her dizziness and headache have resolved Qualifiers: Hypotension type: unspecified hypotension type Qualified Code(s): I95.9 - Hypotension, unspecified (6) Headache Priority: Secondary Status: Chronic Comments: Headache has resolved Qualifiers: Headache type: unspecified Headache chronicity pattern: chronic headache Intractability: not intractable Qualified Code(s): R51 - Headache (7) DVT prophylaxis Priority: Secondary Status: Acute Comments: Patient INR is 1.8, she will dose her Coumadin per previous orders and bridge with Lovenox prescription and instructions were provided. She has no trouble giving injections as she injects insulin at home. - Discharge Medications Prescriptions: Enoxaparin [Lovenox] 120 mg SQ Q12HR 3 Days #6 syringe Home Medications: Budesonide/Formoterol 160/4.5 [Symbicort 160/4.5] 2 puff IH BIDR 12/30/16 [ History] Insulin ASPART [NovoLOG] 2 - 10 unit SQ TIDWM PRN 12/30/16 [History] Insulin Glargine,Hum.rec.anlog [Lantus Solostar] 36 unit SQ HS 12/30/16 [History ] Nitroglycerin [Nitrostat] 0.4 mg SL Q5M PRN 12/30/16 [History] Ranitidine HCl [Acid General Maintenance Mechanic] 150 mg PO BID 12/30/16 [History] Tiotropium [Spiriva] 18 mcg IH DAILY 12/30/16 [History] Calcium Polycarbophil [Fibercon] 625 mg PO DAILY 03/15/17 [History] Oxygen 2 l NS HS 03/15/17 [History] LORazepam [Ativan] 0.5 mg PO HS #30 tablet 06/13/17 [Rx] hydrOXYzine pamoate [HydrOXYzine Pamoate] 50 mg PO TID #90 06/20/17 [Rx] Atorvastatin [Lipitor] 40 mg PO HS 07/03/17 [History] Quetiapine Fumarate [Seroquel] 300 mg PO HS 07/20/17 [History] Aspirin 81 mg PO DAILY #30 tab.chew 07/22/17 [Rx] Gabapentin [Neurontin] 400 mg PO TID 08/29/17 [History] Meclizine [Antivert] 12.5 mg PO BID 08/29/17 [History] Buspirone HCl [Buspar] 10 mg PO BID 09/14/17 [History] Diclofenac Sodium [Voltaren] 75 mg PO BID 09/14/17 [History] FLUoxetine HCl [Prozac] 40 mg PO BID 09/14/17 [History] Furosemide [Lasix] 20 - 40 mg PO DAILY 10/13/17 [History] Ipratropium/Albuterol Neb [Duoneb] 3 ml IH [id number] PRN 10/13/17 [History] Potassium Chloride [K-Tab ER] 10 meq PO DAILY 10/13/17 [History] Prochlorperazine Maleate [Compazine] 10 mg PO Q8HR PRN 10/13/17 [History] Isosorbide MONOnitrate (24 HR) [Imdur] 120 mg PO DAILY tab.er.24h 10/20/17 [Rx] Metoprolol XL (24 HR) Succ [Toprol Xl] 25 mg PO BID tab.er.24h 10/20/17 [Rx] Melatonin 10 mg PO HS 10/31/17 [History] Warfarin [Coumadin] 3 mg PO MOWEFR 10/31/17 [History] Warfarin [Coumadin] 4.5 mg PO SUTUTHSA 10/31/17 [History] Acetaminophen [Tylenol] 650 mg PO Q6HR PRN tablet 11/02/17 [Rx] Docusate [Colace] 100 mg PO BID #60 capsule 11/02/17 [Rx] Nicotine Patch [Nicoderm] 14 mg TD DAILY patch.td24 11/02/17 [Rx] Topiramate [Topamax] 25 mg PO HS #60 tablet 11/02/17 [Rx] Verapamil HCl [Verapamil ER] 240 mg PO DAILY #30 cap24h.pel 11/02/17 [Rx] Enoxaparin [Lovenox] 120 mg SQ Q12HR 3 Days #6 syringe 11/20/17 [Rx] Allergies/Adverse Reactions: 3 Allergy/AdvReac Type Severity Reaction Status Date / Time baclofen Allergy Itching Verified 11/15/17 14:22 ciprofloxacin [From Cipro] Allergy Hives Verified 11/15/17 14:22 latex Allergy Rash Verified 11/15/17 14:22 Penicillins Allergy Hives Verified 11/15/17 14:22 prednisone Allergy Itching Verified 11/15/17 14:22 sulfamethoxazole Allergy Hives Verified 11/15/17 14:22 [From Bactrim] trimethoprim [From Bactrim] Allergy Hives Verified 11/15/17 14:22 cefdinir AdvReac Vomiting Verified 11/15/17 14:22 Oxycodone AdvReac Hallucinati Verified 11/15/17 14:22 ng Procedures/tests Complete & Pending: Procedures Performed prior 72 hours Category Date Time Status CL Cardiac Catheterization [CL] Routine Staff Development Manager 11/18/17 14:26 Completed ECG 12 lead ECG [ECG] Stat Y 11/17/17 10:29 Ordered Date of admission: 11/15/17 19:54 Primary care physician: Maurisio Ward MD Consults: 11/19/17 07:27 Consult to Campground Hand [CONS] Routine Reason for SW Consult: lovenox cost Discharging clinician: Yisel Mar Anticipated date of discharge: 11/20/17 - Patient Status Disposition: Home, Self-Care Condition: Good Functional capacity at discharge: independent ambulation Overall status at discharge: patient is back to baseline - Discharge Instructions Follow Up With: Maurisio Ward MD [Primary Care Provider] - Additional Instructions: Patient has a an appointment at the Coumadin clinic on Tuesday. She will keep that appointment. She also does not a prescription for PT/INR as this is her handled by her primary care physician and the clinic. Instructed on use of the Lovenox and she is verbalizing understanding. She was given a prescription for good Rx to obtain her Lovenox. - Diet and Activity Activity: resume usual activities as tolerated Diet: advance to your usual diet Interval History: Patient is pain-free, no headache, no dizziness blood pressure is controlled. She is ready for discharge. She is not interested in smoking cessation. She understands Lovenox injections and she will follow up on her Coumadin clinic. Verbalized understanding of her discharge instructions Hospital course: Ms. Strong is a 52 year old female presented with chest pain, left heart catheter was completed. She had to have her Coumadin held and it is slowly rising. She will be discharged on Lovenox as a bridge to Coumadin. She follows at the Coumadin clinic. Please see the assessment and plan for further details of this admission Time spent discussing smoking cessation with patient: 3 to 10 minutes - Time Spent with Patient Total time spent providing and/or coordinating discharge services: Less than 30 minutes - Constitutional Vitals: Temp Pulse Resp BP Pulse Ox 97.9 F 82 16 123/78 95 11/20/17 06:52 11/20/17 06:52 11/20/17 10:35 11/20/17 06:52 11/20/17 10:35 General appearance: Present: cooperative, A&O X 3, morbidly obese, no acute distress, answers questions appropriately - Head Head exam: Present: atraumatic, normocephalic - Eye Eye exam: Present: PERRL, conjuntiva pink, sclera anicteric Pupils: Present: PERRL - Neck Neck exam general surgery: Present: supple, trachea midline. Absent: lymphadenopathy - Respiratory Respiratory exam: Present: CTAB. Absent: accessory muscle use, rales, rhonchi, wheezes - Cardiovascular Cardiovascular exam: Present: RRR, +S1, +S2. Absent: diastolic murmur, gallop, rubs, systolic murmur - GI/Abdominal GI/Abdominal exam: Present: normal bowel sounds, soft, no peritoneal signs. Absent: distended, tenderness - Extremities Exam Extremities exam: Present: warm, radial pulses palpable and symmetrical. Absent : calf tenderness, cyanotic, pedal edema - Neurological Exam Neurological exam: Present: CN II-XII intact, oriented X3, no focal deficits. Absent: pronater drift, facial droop, speech deficit - Skin Skin exam: Present: dry, intact, warm - VTE Documentation of Mechanical Device: Intermittent pneumatic compression device
== END 2017-11-20 12:29 | disposition home or self-care (01) ==
LOC: EMEROO 14:05 → 3BNU 14:05
PROVIDERS: ADMIT Nurse Practitioner; ATTEND Registered Nurse

== ENCOUNTER 2017-12-02 12:56 | Inpatient (IN) ==
[2017-12-02 13:58] LABS: Basophils # 0.1 K/mcL (0.0-0.2); Basophils % 0.4 %; Eosinophils # 0.2 K/mcL (0.0-0.6); Eosinophils % 1.9 %; Hematocrit 37.3 % (35.3-44.9); Hemoglobin 12.1 g/dL (11.5-15.4); Immature Granulocytes % 1.4 % (0-4); Lymphocytes # 2.3 K/mcL (0.6-4.6); Lymphocytes % 18.7 %; Mean Corpuscular HGB Conc 32.4 g/dL (31.6-35.5); Mean Corpuscular Hemoglobin 28.1 pg (28.0-33.3); Mean Corpuscular Volume 86.5 fL (83.0-100.0); Mean Platelet Volume 9.5 fL (9.4-12.4); Monocytes # 0.8 K/mcL (0.0-1.3); Neutrophils # 8.9 K/mcL (1.6-8.9); Platelet Count 279 K/mcL (140-400); Red Blood Count 4.31 M/mcL (3.82-4.97); Red Cell Distribution Width 12.9 % (11.5-14.5); Segmented Neutrophils % 71.6 %
[2017-12-02 14:10] LABS: Albumin 3.3 g/dL (3.5-5.7); Bilirubin,Direct 0.1 mg/dL (0.0-0.2); Bilirubin,Indirect 0.1 mg/dL (0.0-1.2); Bilirubin,Total 0.2 mg/dL (0.3-1.0); Calcium 8.6 mg/dL (8.6-10.3); Carbon Dioxide 22 mEq/L (23-29); Chloride 110 mEq/L (98-107); Sodium 139 mEq/L (136-145)
[2017-12-02 14:16] LABS: Alanine Aminotransferase 17 Units/L (7-52); Albumin/Globulin Ratio 1.1 (1.1-2.2); Alkaline Phosphatase 114 Units/L (34-104); Aspartate Amino Transferase 13 Units/L (13-39); BUN/Creatinine Ratio 9 (6-26); Blood Urea Nitrogen 6 mg/dL (6-20); Glucose 104 mg/dL (70-105); Lipase 64 Units/L (11-82); Osmolality,Calculated 286 (280-300); Total Protein 6.3 g/dL (6.4-8.9); eGFR For Non-African Americans > 60 (> 60)
[2017-12-02] MEDS ORDERED: Ondansetron Oral Soln 2 MG/2.5 ML ORAL.SYG PO ONE (15:20)
[2017-12-02] MEDS ORDERED: Ondansetron 4 MG/2 ML VIAL IVP PRN (15:32)
--- NOTE | 2017-12-02 15:37 | Emergency Department Note ---
START Narrative - START START: I examined this patient and my medical decision-making was reviewed with the WET MACHINE TENDER/PA/Advanced Practice Nurse/Resident Physician. I agree with the documented findings, disposition and treatment plan as described except to the extent set forth below. I did see the patient spoke with her and examined her and she does have moderate to severe pain localized left lower quadrant and she is diabetic and she said the pain is worse than it was 3 days ago. Has been using Vicodin without adequate improvement. Concern for perforation or abscess formation so contrast IV on the CT will be done. Results pending. I did review her labs. [id number]
--- NOTE | 2017-12-02 16:08 | Emergency Department Note ---
Disposition Clinical Impression: Diverticulitis Disposition: Admitted As Inpatient Condition: Good Referrals: Maurisio Ward MD [Primary Care Provider] - Forms: ED Satisfaction Letter, Work/School Release Time of Disposition: 19:36 Abdominal Pain HPI - General Chief Complaint: ED Abdominal Pain Stated Complaint: diverticulitis Time Seen by Provider: 12/02/17 14:38 Source: patient Nursing Notes Reviewed: Yes Vital Signs Reviewed: Yes - History of Present Illness HPI Narrative: Ms Strong is a 52 yo F with recent diagnosis of sigmoid diverticulitis confirmed on CT at [place] 3 days ago presents with worsening sharp lower left abdominal pain. Pain has progressed since first onset 3 days ago. Pain is 10/ 10 severity. Patient states nothing has relieved her pain including bowel movements. Pain is constant and is not provoked by movement, food, or straining. She has associated vomiting, nausea, runny stools, and ~100 temperature measured at home. She denies radiation of pain to the back, to the right lower abdomen. Abd surgial hx include appendectomy, total hysterectomy, and cholecystectomy. Pain Scale: 10 - Related Data Home Medications Medication Instructions Recorded Confirmed Budesonide/Formoterol 160/4.5 2 puff IH BIDR 12/30/16 11/29/17 [Symbicort 160/4.5] Insulin ASPART [NovoLOG] 2 - 10 unit SQ TIDWM PRN 12/30/16 11/29/17 Insulin Glargine,Hum.rec.anlog 36 unit SQ HS 12/30/16 11/29/17 [Lantus Solostar] Nitroglycerin [Nitrostat] 0.4 mg SL Q5M PRN 12/30/16 11/29/17 Ranitidine HCl [Acid Intertype Operator] 150 mg PO BID 12/30/16 11/29/17 Tiotropium [Spiriva] 18 mcg IH DAILY 12/30/16 11/29/17 Calcium Polycarbophil [Fibercon] 625 mg PO DAILY 03/15/17 11/29/17 Oxygen 2 l NS HS 03/15/17 11/29/17 Atorvastatin [Lipitor] 40 mg PO HS 07/03/17 11/29/17 Quetiapine Fumarate [Seroquel] 300 mg PO HS 07/20/17 11/29/17 Gabapentin [Neurontin] 400 mg PO TID 08/29/17 11/29/17 Meclizine [Antivert] 12.5 mg PO BID 08/29/17 11/29/17 Buspirone HCl [Buspar] 10 mg PO BID 09/14/17 11/29/17 Diclofenac Sodium [Voltaren] 75 mg PO BID 09/14/17 11/29/17 FLUoxetine HCl [Prozac] 40 mg PO BID 09/14/17 11/29/17 Furosemide [Lasix] 20 - 40 mg PO DAILY 10/13/17 11/29/17 Ipratropium/Albuterol Neb [Duoneb] 3 ml IH [id number] PRN 10/13/17 11/29/17 Potassium Chloride [K-Tab ER] 10 meq PO DAILY 10/13/17 11/29/17 Prochlorperazine Maleate 10 mg PO Q8HR PRN 10/13/17 11/29/17 [Compazine] Melatonin 10 mg PO HS 10/31/17 11/29/17 Warfarin [Coumadin] 3 mg PO MOWEFR 10/31/17 11/29/17 Warfarin [Coumadin] 4.5 mg PO SUTUTHSA 10/31/17 11/29/17 Previous Rx's Medication Instructions Recorded LORazepam [Ativan] 0.5 mg PO HS #30 tablet 06/13/17 hydrOXYzine pamoate [HydrOXYzine 50 mg PO TID #90 06/20/17 Pamoate] Aspirin 81 mg PO DAILY #30 tab.chew 07/22/17 Isosorbide MONOnitrate (24 HR) 120 mg PO DAILY tab.er.24h 10/20/17 [Imdur] Metoprolol XL (24 HR) Succ [Toprol 25 mg PO BID tab.er.24h 10/20/17 Xl] Acetaminophen [Tylenol] 650 mg PO Q6HR PRN tablet 11/02/17 Docusate [Colace] 100 mg PO BID #60 capsule 11/02/17 Nicotine Patch [Nicoderm] 14 mg TD DAILY patch.td24 11/02/17 Topiramate [Topamax] 25 mg PO HS #60 tablet 11/02/17 Verapamil HCl [Verapamil ER] 240 mg PO DAILY #30 cap24h.pel 11/02/17 Cefdinir [Omnicef] 300 mg PO BID #20 capsule 11/29/17 HYDROcodone/Acet 5/325 mg [[place] 1 tab PO Q6H PRN 3 Days #10 tab 11/29/17 5-325 mg] Ondansetron ODT [Zofran ODT] 4 mg SL Q6HR #10 tab.rapdis 11/29/17 metroNIDAZOLE [Metronidazole] 500 mg PO TID #30 tablet 11/29/17 Allergies Allergy/AdvReac Type Severity Reaction Status Date / Time baclofen Allergy Itching Verified 12/02/17 13:02 ciprofloxacin [From Cipro] Allergy Hives Verified 12/02/17 13:02 latex Allergy Rash Verified 12/02/17 13:02 Penicillins Allergy Hives Verified 12/02/17 13:02 prednisone Allergy Itching Verified 12/02/17 13:02 sulfamethoxazole Allergy Hives Verified 12/02/17 13:02 [From Bactrim] trimethoprim [From Bactrim] Allergy Hives Verified 12/02/17 13:02 cefdinir AdvReac Vomiting Verified 12/02/17 13:02 Oxycodone AdvReac Hallucinati Verified 12/02/17 13:02 ng All systems ED: reviewed and negative except as stated. 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 Absent : tenderness, rash - Respiratory Respiratory exam: Present: normal lung sounds bilaterally. Absent: respiratory distress, wheezes, stridor, accessory muscle use, prolonged expiratory phase - Cardiovascular Cardiovascular exam: Present: regular rate, normal rhythm, normal heart sounds. Absent: bradycardia, tachycardia, irregular rhythm, systolic murmur, diastolic murmur, rubs, gallop, clicks, JVD - Abdominal Exam Abdominal exam: Present: soft, tenderness (Left Lower quadrant), hypoactive bowel sounds. Absent: distention, guarding, rebound, rigidity, normal bowel sounds, organomegaly, trauma, incision, psoas sign, obturator sign, Bazan's sign, Rovsing's sign, tenderness at McBurney's Point, ascites, mass, bruit, pulsatile mass, hernia Abdominal tenderness: Present: LLQ - Back Exam Back exam: Present: normal inspection. Absent: tenderness, CVA tenderness (R), CVA tenderness (L), muscle spasm, paraspinal tenderness, vertebral tenderness, rashes Course Course Narrative: Concerned for complicated diverticulitis. Currently vitals are stable and patient is clinically stable with mildly elevated WBC. Due to hx of fever, and progressing abdominal pain, CT abd pending. - Reevaluation(s) Reevaluation #1: CT abdomen shows that diverticulitis has progressed. Will start IV flagyl and cefepime at this time and admit. Time: 19:09 Vital Signs Temperature 98.6 F 12/02/17 12:58 Pulse Rate 77 12/02/17 12:58 Respiratory Rate 17 12/02/17 12:58 Blood Pressure 113/73 12/02/17 12:58 O2 Sat by Pulse Oximetry 98 12/02/17 12:58 Temperature 98.6 F 12/02/17 12:58 Pulse Rate 77 12/02/17 12:58 Respiratory Rate 17 12/02/17 12:58 Blood Pressure 113/73 12/02/17 12:58 O2 Sat by Pulse Oximetry 98 12/02/17 12:58 Oxygen Delivery Oxygen Delivery Room Air Abdominal Pain - [facility] Narrative Medical decision making narrative: Patient diagnosed with diverticulitis 3 days ago, pain has worsened and has had a fever at home over ~100, failed outpatient antibiotics with metronidazole and cefedinir. Decision to admit for IV antibiotic treatment. - Differential Diagnosis Differential Diagnosis: Likely: diverticulitis - Medical Records Medical records reviewed: Yes I reviewed the patient's medical records. - Lab Data Lab results reviewed: Yes I reviewed the patient's lab results. Result diagrams: 12/02/17 13:42 12/02/17 13:42 Lab Results 12/02/17 12/02/17 12/02/17 Range/Units 13:42 13:42 15:46 WBC 12.5 H (4.3-11.1) K/mcL RBC 4.31 (3.82-4.97) M/mcL Hgb 12.1 (11.5-15.4) g/dL Hct 37.3 (35.3-44.9) % MCV 86.5 (83.0-100.0) fL MCH 28.1 (28.0-33.3) pg MCHC 32.4 (31.6-35.5) g/dL RDW 12.9 (11.5-14.5) % Plt Count 279 (140-400) K/mcL MPV 9.5 (9.4-12.4) fL Immature Gran % 1.4 (0-4) % Seg Neutrophils % 71.6 % Lymphocytes % 18.7 % Monocytes % 6.0 % Eosinophils % 1.9 % Basophils % 0.4 % Neutrophils # 8.9 (1.6-8.9) K/mcL Lymphocytes # 2.3 (0.6-4.6) K/mcL Monocytes # 0.8 (0.0-1.3) K/mcL Eosinophils # 0.2 (0.0-0.6) K/mcL Basophils # 0.1 (0.0-0.2) K/mcL Sodium 139 (136-145) mEq/L Potassium 4.0 (3.5-5.1) mEq/L Chloride 110 H (98-107) mEq/L Carbon Dioxide 22 L (23-29) mEq/L BUN 6 (6-20) mg/dL Creatinine 0.67 (0.60-1.20) mg/dL Est GFR ( Amer) > 60 (> 60) Est GFR (Non-Af Amer) > 60 (> 60) BUN/Creatinine Ratio 9 (6-26) Glucose 104 (70-105) mg/dL Calculated Osmolality 286 (280-300) Lactic Acid 1.1 (0.5-2.2) mmol/L Calcium 8.6 (8.6-10.3) mg/dL Total Bilirubin 0.2 L (0.3-1.0) mg/dL Direct Bilirubin 0.1 (0.0-0.2) mg/dL Indirect Bilirubin 0.1 (0.0-1.2) mg/dL AST 13 (13-39) Units/L ALT 17 (7-52) Units/L Alkaline Phosphatase 114 H (34-104) Units/L Serum Total Protein 6.3 L (6.4-8.9) g/dL Albumin 3.3 L (3.5-5.7) g/dL Globulin 3.0 (2.4-3.5) g/dL Albumin/Globulin Ratio 1.1 (1.1-2.2) Lipase 64 (11-82) Units/L - Radiology Data Radiology results reviewed: Yes I reviewed the patient's radiology results. Abdomen/Pelvis CT 12/02/17 17:40 IMPRESSION: Slight progression of sigmoid diverticulitis with mildly increased wall thickening and surrounding inflammatory changes. There is adjacent trace fluid. Otherwise no fluid collections or free intraperitoneal air are identified. D/ /02/2017 18:41:41 Elliott Renee MD / [email or web address] Interpreting Provider: Elliott Renee MD
[2017-12-02] MEDS ORDERED: MetroNIDAZOLE 500 MG/100 ML 500 MG/100 ML BAG IVPB ONE (19:14)
[2017-12-02] MEDS ORDERED: Acetaminophen 325 MG TABLET PO PRN (20:05)
[2017-12-02] MEDS ORDERED: Ipratropium/Albuterol Neb 3 ML IH PRN (20:05)
[2017-12-02] MEDS ORDERED: Nitroglycerin 0.4 MG TAB.SUBL SL PRN (20:05)
[2017-12-02] MEDS ORDERED: *HR* Dextrose 50 % in Water (Syg) 50 ML SYRINGE IVP PRN (20:17)
[2017-12-02] MEDS ORDERED: Dextrose Gel 15 GM/37.5 ML TUBE PO PRN ×2 (20:17)
[2017-12-02] MEDS ORDERED: D5% in Water 1,000 ML IVC PRN (20:17)
--- NOTE | 2017-12-02 20:28 | Internal Med History&Physical ---
Date of Encounter: 12/02/17 Time of Encounter: 19:55 Assessment and Plan (1) Diverticulitis Current visit: Yes Status: Acute Uncomplicated sigmoid diverticulitis CT-Abd/Pelvis did not show free air or abscess Failed PO Flagyl tx at home Started on Cefepime and Flagyl in ER --> changed to Ertapenem NPO with IVF (NS at 50 ml/hr (hx of CHF) Consult GI Bennett for pain control Code(s): K57.92 - Diverticulitis of intestine, part unspecified, without perforation or abscess without bleeding (2) CAD (coronary artery disease) Current visit: No Status: Chronic Hx of nonobstructive CAD s/p neg cath within past 1-2 weeks Asymptomatic Continue Aspirin, statin, BB, and Sl NG Hx of chronic LBBB Qualifiers: Coronary Disease-Associated Artery/Lesion type: unspecified vessel or lesion type [place] vs. transplanted heart: [place] heart Associated angina: without angina Qualified Code(s): I25.10 - Atherosclerotic heart disease of [place] coronary artery without angina pectoris (3) PAF (paroxysmal atrial fibrillation) Current visit: No Status: Chronic Rate controlled with BB RPh to dose Coumadin (4) Diabetic neuropathy Current visit: Yes Status: Acute Stop Flagyl and continue Neurontin Qualifiers: Diabetes mellitus type: type 2 Diabetes mellitus complication detail: diabetic polyneuropathy Qualified Code(s): E11.42 - Type 2 diabetes mellitus with diabetic polyneuropathy (5) COPD (chronic obstructive pulmonary disease) Current visit: No Status: Chronic COPD w/o exacerbation Continue home bronchodilators Well controlled Qualifiers: COPD type: emphysema Emphysema type: unspecified Qualified Code(s): J43.9 - Emphysema, unspecified Internal Medicine - H&P: HPI Chief complaint: LLQ abdominal pain History of present illness: 52 yo F with sharp RLQ abdominal pain and recent diagnosis of sigmoid diverticulitis. A CT Abdomen/Pelvis done at [place] 3 days ago showed acute diverticulitis. She was sent home on oral Flagyl but returens today c/o worsening abdominal pain. She reports a low grade fever at home and nausea with decreased oral intake and loose stools. has associated vomiting, nausea, runny stools, and ~100 temperature measured at home. She had several prior abdominal and pelvic surgeries including an appendectomy, total hysterectomy, and cholecystectomy but does not have CT or clinical evidence of obstruction. Her CT Abd/Pelvis today showed slight progression of sigmoid diverticulitis with mildly increased wall thickening and surrounding inflammatory changes. There was adjacent trace fluid , but no fluid collections or free intraperitoneal air was identified. Past Med Surg Social Fam HX - Past Medical History Medical history: atrial fibrillation, CHF, COPD, CVA, diabetes, hyperlipidemia, hypertension, myocardial infarction, seizures, TIA Psychiatric history: anxiety, bipolar, depression, prior suicide attempt, previous psychiatric hospitalization - Past Surgical History Surgical History: angioplasty/stent, appendectomy, cholecystectomy, knee replacement - Social History Smoking Status: Current every day smoker Smokeless Tobacco Status: No Alcohol use: none Drug use: none - Family History Father Family Member Ethnicity: Non- Living Status: Sister Family Member Ethnicity: Non- Living Status: Still Living Grandfather Family Member Ethnicity: Non- Living Status: Hx Family Cardiac Disorders: Yes ([place], CAD) Mother Family Member Ethnicity: Non- Living Status: Hx Family Cardiac Disorders: Yes (chf) Hx Family Respiratory Disorders: Yes (copd) Hx Family Cancer: No Hx Family GI Disorders: No Hx Family Endocrine Disorder: No Hx Family Neuromuscular Disorders: No Hx Family Neurologic Disorders: No Hx Family HEENT Disorders: No Hx Family Autoimmune Disorders: No Internal Medicine - H&P: Meds Budesonide/Formoterol 160/4.5 [Symbicort 160/4.5] 2 puff IH BIDR 12/30/16 [ History] Insulin ASPART [NovoLOG] 2 - 10 unit SQ TIDWM PRN 12/30/16 [History] Insulin Glargine,Hum.rec.anlog [Lantus Solostar] 36 unit SQ HS 12/30/16 [History ] Nitroglycerin [Nitrostat] 0.4 mg SL Q5M PRN 12/30/16 [History] Ranitidine HCl [Acid Physiology Teacher] 150 mg PO BID 12/30/16 [History] Tiotropium [Spiriva] 18 mcg IH DAILY 12/30/16 [History] Calcium Polycarbophil [Fibercon] 625 mg PO DAILY 03/15/17 [History] Oxygen 2 l NS HS 03/15/17 [History] LORazepam [Ativan] 0.5 mg PO HS #30 tablet 06/13/17 [Rx] hydrOXYzine pamoate [HydrOXYzine Pamoate] 50 mg PO TID #90 06/20/17 [Rx] Atorvastatin [Lipitor] 40 mg PO HS 07/03/17 [History] Quetiapine Fumarate [Seroquel] 300 mg PO HS 07/20/17 [History] Aspirin 81 mg PO DAILY #30 tab.chew 07/22/17 [Rx] Meclizine [Antivert] 12.5 mg PO BID 08/29/17 [History] Buspirone HCl [Buspar] 10 mg PO BID 09/14/17 [History] Diclofenac Sodium [Voltaren] 75 mg PO BID 09/14/17 [History] FLUoxetine HCl [Prozac] 40 mg PO BID 09/14/17 [History] Furosemide [Lasix] 20 - 40 mg PO DAILY 10/13/17 [History] Ipratropium/Albuterol Neb [Duoneb] 3 ml IH [id number] PRN 10/13/17 [History] Potassium Chloride [K-Tab ER] 10 meq PO DAILY 10/13/17 [History] Prochlorperazine Maleate [Compazine] 10 mg PO Q8HR PRN 10/13/17 [History] Metoprolol XL (24 HR) Succ [Toprol Xl] 25 mg PO BID tab.er.24h 10/20/17 [Rx] Melatonin 10 mg PO HS 10/31/17 [History] Warfarin [Coumadin] 3 mg PO SUMOWETHFRSA 10/31/17 [History] Warfarin [Coumadin] 4.5 mg PO TU 10/31/17 [History] Acetaminophen [Tylenol] 650 mg PO Q6HR PRN tablet 11/02/17 [Rx] Docusate [Colace] 100 mg PO BID #60 capsule 11/02/17 [Rx] Topiramate [Topamax] 25 mg PO HS #60 tablet 11/02/17 [Rx] Verapamil HCl [Verapamil ER] 240 mg PO DAILY #30 cap24h.pel 11/02/17 [Rx] Cefdinir [Omnicef] 300 mg PO BID #20 capsule 11/29/17 [Rx] HYDROcodone/Acet 5/325 mg [Bennett 5-325 mg] 1 tab PO Q6H PRN 3 Days #10 tab 11/29 [Rx] Ondansetron ODT [Zofran ODT] 4 mg SL Q6HR #10 tab.rapdis 11/29/17 [Rx] metroNIDAZOLE [Metronidazole] 500 mg PO TID #30 tablet 11/29/17 [Rx] Gabapentin [Neurontin] 300 mg PO TID 12/02/17 [History] 3 Allergy/AdvReac Type Severity Reaction Status Date / Time baclofen Allergy Itching Verified 12/02/17 13:02 ciprofloxacin [From Cipro] Allergy Hives Verified 12/02/17 13:02 latex Allergy Rash Verified 12/02/17 13:02 Penicillins Allergy Hives Verified 12/02/17 13:02 prednisone Allergy Itching Verified 12/02/17 13:02 sulfamethoxazole Allergy Hives Verified 12/02/17 13:02 [From Bactrim] trimethoprim [From Bactrim] Allergy Hives Verified 12/02/17 13:02 cefdinir AdvReac Vomiting Verified 12/02/17 13:02 Oxycodone AdvReac Hallucinati Verified 12/02/17 13:02 ng All Systems PM: A 10-system review of systems was performed and is negative for pertinent findings except as documented above in the HPI. - Constitutional Constitutional: fever(s), no anorexia, no chills, no excessive sweating, no malaise - EENT Eyes: no blurry vision, no diplopia, no spots in vision Nose, mouth and throat: no change in voice, no dysphagia, no mouth pain, no sinus pressure - Cardiovascular Cardiovascular ROS IM: no claudication, no dyspnea - Respiratory Respiratory: no hemoptysis, no wheezing, no stridor - Gastrointestinal Gastrointestinal: abdominal pain, diarrhea, loose stools, vomiting - Musculoskeletal Musculoskeletal ROS IM: no arthralgias, no muscle weakness, no numbness - Integumentary Integumentary IM: no rash, no jaundice - Neurological Neurological ROS: no abnormal hearing, no confusion, no dizziness, no numbness, no paresthesias, no radicular pain, no restless legs, no tingling, no tremor(s) - Psychiatric Psychiatric: no behavioral changes, no homicidal ideation, no suicidal ideation - Constitutional Vitals: Temp Pulse Resp BP Pulse Ox 98.6 F 77 17 113/73 98 12/02/17 12:58 12/02/17 12:58 12/02/17 12:58 12/02/17 12:58 12/02/17 12:58 General appearance: Present: mild distress, A&O X 3, pleasant, answers questions appropriately - Head Head exam: Present: atraumatic, normocephalic - Eye Eye exam: Present: EOMI, PERRL, conjuntiva pink, sclera anicteric Pupils: Present: PERRL - Neck Neck exam general surgery: Present: supple, trachea midline. Absent: lymphadenopathy - Respiratory Respiratory exam: Present: CTAB. Absent: accessory muscle use, rales, rhonchi, wheezes - Cardiovascular Cardiovascular exam: Present: RRR, +S1, +S2. Absent: diastolic murmur, gallop, rubs, systolic murmur - GI/Abdominal GI/Abdominal exam: Present: guarding, normal bowel sounds, soft, no peritoneal signs. Absent: distended, rebound, rigid, tenderness - Extremities Exam Extremities exam: Present: warm, radial pulses palpable and symmetrical. Absent : calf tenderness, cyanotic, pedal edema - Expanded Lower Extremities Exam Foot/Toe exam: Absent: swelling, tenderness - Neurological Exam Neurological exam: Present: CN II-XII intact, oriented X3, no focal deficits. Absent: pronater drift, facial droop, speech deficit - Skin Skin exam: Present: dry, intact Internal Med - H&P Results - Labs CBC & Chem 7: 12/02/17 13:42 12/02/17 13:42 Labs: Short CBC 12/02/17 Range/Units 13:42 WBC 12.5 H (4.3-11.1) K/mcL Hgb 12.1 (11.5-15.4) g/dL Hct 37.3 (35.3-44.9) % Plt Count 279 (140-400) K/mcL Neutrophils # 8.9 (1.6-8.9) K/mcL BMP 12/02/17 13:42 Sodium 139 Potassium 4.0 Chloride 110 H Carbon Dioxide 22 L BUN 6 Creatinine 0.67 Glucose 104 Calcium 8.6 Liver Function 12/02/17 Range/Units 13:42 Total Bilirubin 0.2 L (0.3-1.0) mg/dL Direct Bilirubin 0.1 (0.0-0.2) mg/dL AST 13 (13-39) Units/L ALT 17 (7-52) Units/L Alkaline Phosphatase 114 H (34-104) Units/L Albumin 3.3 L (3.5-5.7) g/dL - Impressions ITS Impressions Abdomen/Pelvis CT 12/02/17 17:40 IMPRESSION: Slight progression of sigmoid diverticulitis with mildly increased wall thickening and surrounding inflammatory changes. There is adjacent trace fluid. Otherwise no fluid collections or free intraperitoneal air are identified. D/ / 12/02/2017 18:41:41 Elliott Renee MD / aggie Interpreting Provider: Elliott Renee MD
[2017-12-02] MEDS: Budesonide/Formoterol 160/4.5 1 PUFF INH IH SCH (21:38)
[2017-12-02 22:08] LABS: Prothrombin Time 31.9 Seconds (9.4-12.1)
[2017-12-02 22:09] LABS: INR 2.9
[2017-12-02] MEDS: FLUoxetine 20 MG CAPSULE PO SCH (22:17)
[2017-12-02] MEDS: Melatonin 3 MG TABLET PO SCH (22:18)
[2017-12-02] MEDS: hydrOXYzine pamoate 25 MG CAPSULE PO SCH (22:18)
[2017-12-02] MEDS: *HR* LORazepam 0.5 MG TABLET PO SCH (22:18)
[2017-12-02] MEDS: Famotidine 20 MG TABLET PO SCH (22:18)
[2017-12-02] MEDS: Topiramate 25 MG TABLET PO SCH (22:18)
[2017-12-02] MEDS: Ertapenem 1,000 MG in Water for inj. (sterile) 20 ML 10 ML IVP SCH (22:19)
[2017-12-02] MEDS: Gabapentin 300 MG CAPSULE PO SCH (22:19)
[2017-12-02] MEDS: *HR* HYDROcodone/Acet 5/325 mg TABLET PO PRN (22:19)
[2017-12-02] MEDS: Diclofenac Sodium 75 MG TABLET PO SCH (22:36)
[2017-12-02] MEDS: Metoprolol XL (24 HR) Succ 25 MG TAB.ER.24H PO SCH (22:38)
[2017-12-03] MEDS: Insulin LISPRO 300 UNITS/3 ML VIAL SQ SCH ×4 (01:37→21:14)
[2017-12-03 07:22] LABS: INR 3.1; Prothrombin Time 34.7 Seconds (9.4-12.1)
[2017-12-03] MEDS: Tiotropium 18 MCG inhalation IH SCH (07:33)
[2017-12-03] MEDS: Budesonide/Formoterol 160/4.5 1 PUFF INH IH SCH ×2 (07:35→21:24)
[2017-12-03] MEDS ORDERED: Verapamil ER (24 HR) 240 MG TABLET.ER PO SCH (09:00)
[2017-12-03] MEDS: FLUoxetine 20 MG CAPSULE PO SCH ×2 (09:51→21:12)
[2017-12-03] MEDS: Gabapentin 300 MG CAPSULE PO SCH ×3 (09:51→21:12)
[2017-12-03] MEDS: Aspirin 81 MG TAB.CHEW PO SCH (09:51)
[2017-12-03] MEDS: hydrOXYzine pamoate 25 MG CAPSULE PO SCH ×3 (09:52→21:10)
[2017-12-03] MEDS: Diclofenac Sodium 75 MG TABLET PO SCH ×2 (09:52→21:14)
[2017-12-03] MEDS: Metoprolol XL (24 HR) Succ 25 MG TAB.ER.24H PO SCH ×2 (09:52→21:13)
[2017-12-03] MEDS: Famotidine 20 MG TABLET PO SCH ×2 (09:52→21:12)
--- NOTE | 2017-12-03 10:42 | Internal Med Progress Note ---
Date of Encounter: 12/03/17 Time of Encounter: 10:42 - Assessment and plan (1) Sigmoid diverticulitis Current Visit: Yes Status: Acute Assessment and plan: Pt with acute sigmoid diverticulitis Failed 2 days of outpatient abx Currently on IV abx and tolerating these Will start clear liquid diet and see how she tolerates it. (2) HTN (hypertension) Current Visit: No Status: Chronic Assessment and plan: Controlled at this time. Continue current medications. Qualifiers: Hypertension type: essential hypertension Qualified Code(s): I10 - Essential (primary) hypertension (3) Afib Current Visit: No Status: Chronic Assessment and plan: Rate controlled. Continue meds and anticoagulation with warfarin Qualifiers: Atrial fibrillation type: chronic Qualified Code(s): I48.2 - Chronic atrial fibrillation (4) CAD (coronary artery disease) Current Visit: No Status: Chronic Assessment and plan: Chronic issue. Continue meds. Qualifiers: Coronary Disease-Associated Artery/Lesion type: unspecified vessel or lesion type [place] vs. transplanted heart: [place] heart Associated angina: without angina Qualified Code(s): I25.10 - Atherosclerotic heart disease of [place] coronary artery without angina pectoris (5) Chronic diastolic heart failure Current Visit: No Status: Chronic Assessment and plan: Aysmptomatic at this time. (6) Diabetes mellitus type 2 in obese Current Visit: No Status: Chronic Assessment and plan: Chronic issue Monitoring blood sugars and covering. (7) Morbid obesity with BMI of 40.0-44.9, adult Current Visit: No Status: Chronic Assessment and plan: Chronic issue (8) Morbid obesity Current Visit: Yes Status: Chronic Assessment and plan: Chronic issue (9) Tobacco abuse Current Visit: No Status: Chronic Assessment and plan: Cessation counselling - Subjective Interval history: Ms Strong is currently admitted for acute diverticulitis. She remains moderate to high risk due to potential for worsening clinical status. Ms Strong is still having some nausea and pain. Feels hungry now. No fever or chills. No diarrhea. WBC has decreased. No CP or SOB currently. Feels like she could try some ice or jello at this time. - Constitutional Vitals: Temp Pulse Resp BP Pulse Ox 97.9 F 68 16 138/78 99 12/03/17 07:05 12/03/17 07:05 12/03/17 07:37 12/03/17 07:05 12/03/17 08:52 General appearance: Present: A&O X 3, pleasant, answers questions appropriately - Head Head exam: Present: normocephalic - Eye Eye exam: Present: EOMI, conjuntiva pink - ENT ENT exam: Present: mucous membranes dry - Respiratory Respiratory exam: Present: decreased breath sounds, CTAB. Absent: rales, rhonchi, wheezes - Cardiovascular Cardiovascular exam: Present: RRR. Absent: tachycardia - GI/Abdominal GI/Abdominal exam: Present: hypoactive bowel sounds, soft, tenderness. Absent: mass, rebound, rigid Additional comments: Some diffuse tenderness and worse in LLQ area. No peritoneal signs. - Extremities Exam Extremities exam: Present: warm. Absent: tenderness - Neurological Exam Neurological exam: Present: alert, oriented X3 - Skin Skin exam: Present: dry, warm. Absent: rash Internal Medicine: Result - Labs CBC & Chem 7: 12/03/17 11:10 12/03/17 11:10 - ABG Interpretation ABG results: PT/INR, D-dimer PT 34.7 Seconds (9.4-12.1) H 12/03/17 05:05 Consult Discharge Plan - Plan Referrals: Maurisio Ward MD [Primary Care Provider] -
[2017-12-03 11:17] LABS: Basophils % 0.5 %; Eosinophils # 0.2 K/mcL (0.0-0.6); Eosinophils % 2.2 %; Hemoglobin 11.5 g/dL (11.5-15.4); Immature Granulocytes % 0.9 % (0-4); Immature Platelets 2.2 % (1.1-6.1); Lymphocytes # 1.3 K/mcL (0.6-4.6); Lymphocytes % 17.1 %; Mean Corpuscular HGB Conc 32.9 g/dL (31.6-35.5); Mean Corpuscular Hemoglobin 28.8 pg (28.0-33.3); Mean Corpuscular Volume 87.5 fL (83.0-100.0); Monocytes # 0.4 K/mcL (0.0-1.3); Monocytes % 5.6 %; Neutrophils # 5.7 K/mcL (1.6-8.9); Platelet Count 273 K/mcL (140-400); Red Cell Distribution Width 12.8 % (11.5-14.5); Segmented Neutrophils % 73.7 %
[2017-12-03 11:47] LABS: BUN/Creatinine Ratio 10 (6-26); Blood Urea Nitrogen 6 mg/dL (6-20); Calcium 8.5 mg/dL (8.6-10.3); Carbon Dioxide 21 mEq/L (23-29); Chloride 110 mEq/L (98-107); Glucose 115 mg/dL (70-105); Osmolality,Calculated 287 (280-300); Potassium 3.6 mEq/L (3.5-5.1); Sodium 139 mEq/L (136-145); eGFR For Non-African Americans > 60 (> 60)
[2017-12-03] MEDS: 0.9 % Sodium Chloride 1,000 ML IVC SCH (14:57)
[2017-12-03] MEDS: *HR* HYDROcodone/Acet 5/325 mg TABLET PO PRN (15:00)
[2017-12-03] MEDS ORDERED: *HR* Warfarin 1 MG TABLET PO ONE (18:00)
[2017-12-03] MEDS ORDERED: Warfarin perPT PO PRN (18:00)
[2017-12-03] MEDS ORDERED: Cefepime HCl 2,000 MG in D5% in Water (Mini-Bag+) 100 ML IVPB ONE (19:13)
[2017-12-03] MEDS: *HR* LORazepam 0.5 MG TABLET PO SCH (21:08)
[2017-12-03] MEDS: Topiramate 25 MG TABLET PO SCH (21:08)
[2017-12-03] MEDS: Ertapenem 1,000 MG in Water for inj. (sterile) 20 ML 10 ML IVP SCH (21:10)
[2017-12-03] MEDS: Melatonin 3 MG TABLET PO SCH (21:11)
[2017-12-04 04:02] LABS: Hematocrit 34.2 % (35.3-44.9); Hemoglobin 10.9 g/dL (11.5-15.4); Mean Corpuscular HGB Conc 31.9 g/dL (31.6-35.5); Mean Corpuscular Hemoglobin 27.7 pg (28.0-33.3); Mean Corpuscular Volume 86.8 fL (83.0-100.0); Mean Platelet Volume 9.3 fL (9.4-12.4); Platelet Count 270 K/mcL (140-400); Red Blood Count 3.94 M/mcL (3.82-4.97); Red Cell Distribution Width 12.8 % (11.5-14.5)
[2017-12-04 04:11] LABS: INR 3.9
[2017-12-04 04:15] LABS: Prothrombin Time 43.5 Seconds (9.4-12.1)
[2017-12-04 04:27] LABS: BUN/Creatinine Ratio 9 (6-26); Blood Urea Nitrogen 5 mg/dL (6-20); Calcium 8.3 mg/dL (8.6-10.3); Carbon Dioxide 22 mEq/L (23-29); Chloride 112 mEq/L (98-107); Glucose 105 mg/dL (70-105); Magnesium 1.9 mg/dL (1.6-2.6); Osmolality,Calculated 290 (280-300); Potassium 3.6 mEq/L (3.5-5.1); Sodium 141 mEq/L (136-145); eGFR For Non-African Americans > 60 (> 60)
[2017-12-04] MEDS: 0.9 % Sodium Chloride 1,000 ML IVC SCH (04:40)
[2017-12-04] MEDS: Insulin LISPRO 300 UNITS/3 ML VIAL SQ SCH ×5 (07:59→21:15)
[2017-12-04] MEDS: Tiotropium 18 MCG inhalation IH SCH (08:04)
[2017-12-04] MEDS: Budesonide/Formoterol 160/4.5 1 PUFF INH IH SCH ×2 (08:04→22:26)
[2017-12-04] MEDS: hydrOXYzine pamoate 25 MG CAPSULE PO SCH ×3 (08:10→20:28)
[2017-12-04] MEDS: FLUoxetine 20 MG CAPSULE PO SCH ×2 (08:10→20:29)
[2017-12-04] MEDS: Diclofenac Sodium 75 MG TABLET PO SCH ×2 (08:10→20:28)
[2017-12-04] MEDS: Metoprolol XL (24 HR) Succ 25 MG TAB.ER.24H PO SCH ×2 (08:10→20:29)
[2017-12-04] MEDS: Famotidine 20 MG TABLET PO SCH ×2 (08:10→20:28)
[2017-12-04] MEDS: Gabapentin 300 MG CAPSULE PO SCH ×3 (08:11→20:29)
[2017-12-04] MEDS: Aspirin 81 MG TAB.CHEW PO SCH (08:11)
[2017-12-04] MEDS: *HR* HYDROcodone/Acet 5/325 mg TABLET PO PRN ×2 (10:22→21:21)
--- NOTE | 2017-12-04 10:29 | Internal Med Progress Note ---
Date of Encounter: 12/04/17 Time of Encounter: 09:45 - Assessment and plan (1) Sigmoid diverticulitis Current Visit: Yes Status: Acute Assessment and plan: Pt with acute sigmoid diverticulitis Failed 2 days of outpatient abx Currently on IV abx and tolerating these No fever or leukocytosis noted Will increase diet to full liquids. Recheck CT in AM. (2) Hemiplegic migraine without status migrainosus Current Visit: No Status: Chronic Assessment and plan: She has not been taking her verapamil due to low BP Will decrease other meds to see if she is able to tolerate some Verapamil. Qualifiers: Intractability: not intractable Qualified Code(s): G43.409 - Hemiplegic migraine, not intractable, without status migrainosus (3) HTN (hypertension) Current Visit: No Status: Chronic Assessment and plan: Controlled at this time. Continue current medications. Qualifiers: Hypertension type: essential hypertension Qualified Code(s): I10 - Essential (primary) hypertension (4) Afib Current Visit: No Status: Chronic Assessment and plan: Rate controlled. Continue meds and anticoagulation with warfarin Qualifiers: Atrial fibrillation type: chronic Qualified Code(s): I48.2 - Chronic atrial fibrillation (5) CAD (coronary artery disease) Current Visit: No Status: Chronic Assessment and plan: Chronic issue. Continue meds. Qualifiers: Coronary Disease-Associated Artery/Lesion type: [place] artery [place] vs. transplanted heart: [place] heart Associated angina: without angina Qualified Code(s): I25.10 - Atherosclerotic heart disease of [place] coronary artery without angina pectoris (6) Chronic diastolic heart failure Current Visit: No Status: Chronic Assessment and plan: Aysmptomatic at this time. (7) Diabetes mellitus type 2 in obese Current Visit: No Status: Chronic Assessment and plan: Chronic issue Monitoring blood sugars and covering. (8) Morbid obesity with BMI of 40.0-44.9, adult Current Visit: No Status: Chronic Assessment and plan: Chronic issue (9) Morbid obesity Current Visit: Yes Status: Chronic (10) Tobacco abuse Current Visit: No Status: Chronic Assessment and plan: Cessation counselling - Subjective Interval history: Ms Strong is currently admitted for acute diverticulitis. She remains moderate to high risk due to potential for worsening clinical status. Ms Strong is having some LLQ discomfort at times. No fever or chills. Has been having loose stool as well and has had some blood in it. GI panel to be sent. Wants more to eat. Has not been taking her Verapamil for her migraines (BP was too low). - Constitutional Vitals: Temp Pulse Resp BP Pulse Ox 97.9 F 73 18 124/75 97 12/04/17 07:46 12/04/17 07:46 12/04/17 08:04 12/04/17 07:46 12/04/17 08:04 General appearance: Present: A&O X 3, pleasant, answers questions appropriately - Head Head exam: Present: atraumatic, normocephalic - Eye Eye exam: Present: conjuntiva pink - ENT ENT exam: Present: mucous membranes dry - Respiratory Respiratory exam: Present: decreased breath sounds, CTAB. Absent: rales, rhonchi, wheezes - Cardiovascular Cardiovascular exam: Present: distant heart sounds, irregular rhythm. Absent: tachycardia - GI/Abdominal GI/Abdominal exam: Present: diminished bowel sounds, soft, tenderness. Absent: mass Additional comments: Some mild discomfort in LLQ area without peritoneal signs. - Extremities Exam Extremities exam: Present: warm. Absent: tenderness - Neurological Exam Neurological exam: Present: alert, oriented X3 - Psychiatric Psychiatric exam: Present: normal affect, normal mood - Skin Skin exam: Present: dry, warm. Absent: rash Internal Medicine: Result - Labs CBC & Chem 7: 12/04/17 03:52 12/04/17 03:52 Labs: Short CBC 12/04/17 Range/Units 03:52 WBC 7.6 (4.3-11.1) K/mcL Hgb 10.9 L (11.5-15.4) g/dL Hct 34.2 L (35.3-44.9) % Plt Count 270 (140-400) K/mcL BMP 12/04/17 03:52 Sodium 141 Potassium 3.6 Chloride 112 H Carbon Dioxide 22 L BUN 5 L Creatinine 0.58 L Glucose 105 Calcium 8.3 L - ABG Interpretation ABG results: PT/INR, D-dimer PT 43.5 Seconds (9.4-12.1) H* 12/04/17 03:52 Consult Discharge Plan - Plan Referrals: Maurisio Ward MD [Primary Care Provider] -
[2017-12-04] MEDS ORDERED: Metoprolol XL (24 HR) Succ 25 MG TAB.ER.24H PO SCH (13:51)
[2017-12-04 16:14] LABS: Adenovirus F 40/41 PCR Not detected (Not detect); Astrovirus PCR Not detected (Not detect); C.difficile Toxin A/B Gene PCR Not detected (Not detect); Campylobacter by PCR Not detected (Not detect); Cryptosporidium by PCR Not detected (Not detect); Cyclospora cayetanensis PCR Not detected (Not detect); E. coli O157 by PCR Not detected (Not detect); Entamoeba histolytica PCR Not detected (Not detect); Enteroaggregative E.coli(EAEC) Not detected (Not detect); Enteropathogenic E.coli(EPEC) Not detected (Not detect); Enterotoxigenic E.coli (ETEC) Not detected (Not detect); Giardia lamblia PCR Not detected (Not detect); Norovirus GI/GII PCR Not detected (Not detect); Plesiomonas shigelloides PCR Not detected (Not detect); Rotavirus A PCR Not detected (Not detect); Salmonella PCR Not detected (Not detect); Sapovirus PCR Not detected (Not detect); Shig/EnteroinvasiveE coli EIEC Not detected (Not detect); Shigalike tox-prod E coli STEC Not detected (Not detect); Vibrio PCR Not detected (Not detect); Vibrio cholerae PCR Not detected (Not detect); Yersinia enterocolitica PCR Not detected (Not detect)
[2017-12-04] MEDS: Ertapenem 1,000 MG in Water for inj. (sterile) 20 ML 10 ML IVP SCH (20:24)
[2017-12-04] MEDS: *HR* LORazepam 0.5 MG TABLET PO SCH (20:28)
[2017-12-04] MEDS: Topiramate 25 MG TABLET PO SCH (20:29)
[2017-12-04] MEDS: Melatonin 3 MG TABLET PO SCH (20:29)
[2017-12-04] MEDS: Verapamil ER (24 HR) 120 MG TABLET.ER PO SCH (20:57)
[2017-12-05 05:58] LABS: Hematocrit 33.2 % (35.3-44.9); Hemoglobin 10.6 g/dL (11.5-15.4); INR 3.1; Mean Corpuscular HGB Conc 31.9 g/dL (31.6-35.5); Mean Corpuscular Volume 87.6 fL (83.0-100.0); Mean Platelet Volume 9.5 fL (9.4-12.4); Platelet Count 276 K/mcL (140-400); Red Blood Count 3.79 M/mcL (3.82-4.97)
[2017-12-05 06:08] LABS: BUN/Creatinine Ratio 8 (6-26); Blood Urea Nitrogen 5 mg/dL (6-20); Calcium 8.3 mg/dL (8.6-10.3); Carbon Dioxide 21 mEq/L (23-29); Chloride 111 mEq/L (98-107); Glucose 191 mg/dL (70-105); Osmolality,Calculated 292 (280-300); Potassium 3.7 mEq/L (3.5-5.1); Sodium 140 mEq/L (136-145); eGFR For Non-African Americans > 60 (> 60)
[2017-12-05] MEDS: Budesonide/Formoterol 160/4.5 1 PUFF INH IH SCH ×2 (07:48→22:19)
[2017-12-05] MEDS: Tiotropium 18 MCG inhalation IH SCH (07:49)
[2017-12-05] MEDS: Gabapentin 300 MG CAPSULE PO SCH ×3 (08:19→20:43)
[2017-12-05] MEDS: FLUoxetine 20 MG CAPSULE PO SCH ×2 (08:19→20:45)
[2017-12-05] MEDS: hydrOXYzine pamoate 25 MG CAPSULE PO SCH ×3 (08:20→20:46)
[2017-12-05] MEDS: Metoprolol XL (24 HR) Succ 25 MG TAB.ER.24H PO SCH ×2 (08:20→20:45)
[2017-12-05] MEDS: Aspirin 81 MG TAB.CHEW PO SCH (08:20)
[2017-12-05] MEDS: Famotidine 20 MG TABLET PO SCH ×2 (08:20→20:46)
[2017-12-05] MEDS: Diclofenac Sodium 75 MG TABLET PO SCH ×2 (08:20→20:43)
[2017-12-05] MEDS: Insulin LISPRO 300 UNITS/3 ML VIAL SQ SCH ×4 (08:21→20:47)
--- NOTE | 2017-12-05 13:06 | Internal Med Progress Note ---
<Oscar Moreno - Last Filed: 12/05/17 13:02> Date of Encounter: 12/05/17 Time of Encounter: 10:30 - Assessment and plan (1) Sigmoid diverticulitis Current Visit: Yes Status: Acute Assessment and plan: Pt with acute sigmoid diverticulitis. Failed 2 days of outpatient abx. Currently on IV Invanz Day 4 and tolerating these. No fever or leukocytosis noted today. Hgb is10.6 today. Will increase diet to soft food. Repeat CT reports reads improving diverticulitis. Continue IV antibiotics. Will continue to track hemoglobin. Plan for outpatient follow-up with G.I. Possible discharge tomorrow. (2) Hemiplegic migraine without status migrainosus Current Visit: No Status: Chronic Assessment and plan: She has not been taking her verapamil due to low BP. Will decrease other meds to see if she is able to tolerate some Verapamil. Qualifiers: Intractability: not intractable Qualified Code(s): G43.409 - Hemiplegic migraine, not intractable, without status migrainosus (3) Diabetes mellitus type 2 in obese Current Visit: Yes Status: Chronic Assessment and plan: Chronic issue. Monitoring blood sugars and covering. (4) Afib Current Visit: No Status: Chronic Assessment and plan: Rate controlled. Continue meds and anticoagulation with warfarin. Qualifiers: Atrial fibrillation type: chronic Qualified Code(s): I48.2 - Chronic atrial fibrillation (5) HTN (hypertension) Current Visit: No Status: Chronic Assessment and plan: Controlled at this time. Continue current medications. Qualifiers: Hypertension type: essential hypertension Qualified Code(s): I10 - Essential (primary) hypertension (6) Chronic diastolic heart failure Current Visit: No Status: Chronic Assessment and plan: Asymptomatic at this time. (7) CAD (coronary artery disease) Current Visit: No Status: Chronic Assessment and plan: Chronic issue. Continue medications. Qualifiers: Coronary Disease-Associated Artery/Lesion type: [place] artery [place] vs. transplanted heart: [place] heart Associated angina: without angina Qualified Code(s): I25.10 - Atherosclerotic heart disease of [place] coronary artery without angina pectoris (8) Morbid obesity with BMI of 40.0-44.9, adult Current Visit: No Status: Chronic Assessment and plan: Chronic issue. - Time Spent With Patient 25 - 35 minutes - Subjective Interval history: Patient was seen and evaluated at bedside this morning. Patient is afebrile and appears in no acute distress. Patient states that she is feeling a lot better and her left lower quadrant abdominal pain is improving. She states she is tolerating the antibiotics. The patient states she has just returned from [place] prior to my exam. Patient admits she had diarrhea today but reports no blood in her stool. She admits my left lower quadrant pain but denies any fevers, headaches, visual changes, chest pain, shortness of breath, difficult the breathing, constipation, difficulty urinating, blood in urine, numbness and tingling, nausea vomiting, and any weaknesses. Patient has no other concerns at this time. - Constitutional Vitals: Temp Pulse Resp BP Pulse Ox 97.6 F 75 15 144/86 96 12/05/17 10:35 12/05/17 10:35 12/05/17 10:35 12/05/17 10:35 12/05/17 10:35 General appearance: Present: A&O X 3, pleasant, answers questions appropriately - Head Head exam: Present: atraumatic, normocephalic - Eye Eye exam: Present: PERRL, conjuntiva pink, sclera anicteric - ENT ENT exam: Present: mucous membranes moist - Neck Neck exam general surgery: Present: supple, trachea midline. Absent: lymphadenopathy - Respiratory Respiratory exam: Present: decreased breath sounds, CTAB. Absent: accessory muscle use, rales, rhonchi, wheezes - Cardiovascular Cardiovascular exam: Present: irregular rhythm. Absent: diastolic murmur, gallop, rubs, systolic murmur, tachycardia - GI/Abdominal GI/Abdominal exam: Present: hernia (umbilical hernia present), normal bowel sounds, soft, tenderness (LLQ tenderness to palpation. ), no peritoneal signs. Absent: distended, firm, guarding - Extremities Exam Extremities exam: Present: warm, radial pulses palpable and symmetrical. Absent : calf tenderness, cyanotic, pedal edema - Neurological Exam Neurological exam: Present: CN II-XII intact, oriented X3, no focal deficits. Absent: pronater drift, facial droop, speech deficit - Skin Skin exam: Present: dry, intact Internal Medicine: Result - Labs CBC & Chem 7: 12/05/17 04:59 12/05/17 04:59 Labs: Short CBC 12/05/17 Range/Units 04:59 WBC 6.9 (4.3-11.1) K/mcL Hgb 10.6 L (11.5-15.4) g/dL Hct 33.2 L (35.3-44.9) % Plt Count 276 (140-400) K/mcL BMP 12/05/17 04:59 Sodium 140 Potassium 3.7 Chloride 111 H Carbon Dioxide 21 L BUN 5 L Creatinine 0.66 Glucose 191 H Calcium 8.3 L - ABG Interpretation ABG results: PT/INR, D-dimer PT 34.0 Seconds (9.4-12.1) H 12/05/17 04:59 - Impressions Impressions Abdomen/Pelvis CT 12/05/17 09:00 IMPRESSION: Improving diverticulitis D/ / Jeremy Boswell MD / Jeremy Boswell MD Interpreting Provider: Jeremy Boswell MD Consult Discharge Plan - Plan Referrals: Maurisio Ward MD [Primary Care Provider] - <Ray Lepe - Last Filed: 12/05/17 18:54> Date of Encounter: 12/05/17 - Assessment and plan (1) Sigmoid diverticulitis Current Visit: Yes Status: Acute (2) Hemiplegic migraine without status migrainosus Current Visit: No Status: Chronic Qualifiers: Intractability: not intractable Qualified Code(s): G43.409 - Hemiplegic migraine, not intractable, without status migrainosus (3) HTN (hypertension) Current Visit: No Status: Chronic Qualifiers: Hypertension type: essential hypertension Qualified Code(s): I10 - Essential (primary) hypertension (4) Afib Current Visit: No Status: Chronic Qualifiers: Atrial fibrillation type: chronic Qualified Code(s): I48.2 - Chronic atrial fibrillation (5) CAD (coronary artery disease) Current Visit: No Status: Chronic Qualifiers: Coronary Disease-Associated Artery/Lesion type: [place] artery [place] vs. transplanted heart: [place] heart Associated angina: without angina Qualified Code(s): I25.10 - Atherosclerotic heart disease of [place] coronary artery without angina pectoris (6) Chronic diastolic heart failure Current Visit: No Status: Chronic (7) Diabetes mellitus type 2 in obese Current Visit: Yes Status: Chronic (8) Morbid obesity with BMI of 40.0-44.9, adult Current Visit: No Status: Chronic (9) Morbid obesity Current Visit: Yes Status: Chronic (10) Tobacco abuse Current Visit: No Status: Chronic - Constitutional Vitals: Temp Pulse Resp BP Pulse Ox 97.9 F 79 15 130/80 96 12/05/17 15:14 12/05/17 15:14 12/05/17 15:14 12/05/17 15:14 12/05/17 15:14 Internal Medicine: Result - Labs CBC & Chem 7: 12/05/17 04:59 12/05/17 04:59 Labs: Short CBC 12/05/17 Range/Units 04:59 WBC 6.9 (4.3-11.1) K/mcL Hgb 10.6 L (11.5-15.4) g/dL Hct 33.2 L (35.3-44.9) % Plt Count 276 (140-400) K/mcL BMP 12/05/17 04:59 Sodium 140 Potassium 3.7 Chloride 111 H Carbon Dioxide 21 L BUN 5 L Creatinine 0.66 Glucose 191 H Calcium 8.3 L - ABG Interpretation ABG results: PT/INR, D-dimer PT 34.0 Seconds (9.4-12.1) H 12/05/17 04:59 - Impressions Impressions Abdomen/Pelvis CT 12/05/17 09:00 IMPRESSION: Improving diverticulitis D/ / Jeremy Boswell MD / Jeremy Boswell MD Interpreting Provider: Jeremy Boswell MD - Attending Attestation I examined this patient and my medical decision-making was reviewed with the Resident Physician on 12/05/17. I agree with the documented findings, disposition and treatment plan as described except to the extent set forth below. Ms Strong is currently admitted for acute diverticulitis. She remains moderate to high risk due to potential for worsening clinical status. Ms Strong is tolerating soft diet. Pain is OK but still has diarrhea. No fever or chills. WBC normal. Exam alert Comfortable Mucus membranes dry Heart irreg No wheeze Abd soft and less tender CT shows improving diverticulitis I/P 1. Diverticulitis Further diagnoses and plan as above. Anticipate d/c tomorrow.
[2017-12-05] MEDS: *HR* HYDROcodone/Acet 5/325 mg TABLET PO PRN (13:26)
[2017-12-05] MEDS ORDERED: Maalox Oral Soln 30 mL PO PRN (15:42)
[2017-12-05] MEDS ORDERED: Mag Hydrox/Al Hydrox/Simeth 30 ML UDC PO PRN (17:00)
[2017-12-05] MEDS ORDERED: *HR* Warfarin 2.5 MG TABLET PO ONE (18:00)
[2017-12-05] MEDS: Verapamil ER (24 HR) 120 MG TABLET.ER PO SCH (20:44)
[2017-12-05] MEDS: Melatonin 3 MG TABLET PO SCH (20:44)
[2017-12-05] MEDS: *HR* LORazepam 0.5 MG TABLET PO SCH (20:44)
[2017-12-05] MEDS: Ertapenem 1,000 MG in Water for inj. (sterile) 20 ML 10 ML IVP SCH (20:47)
[2017-12-05] MEDS: Topiramate 25 MG TABLET PO SCH (21:01)
[2017-12-06 07:09] LABS: INR 2.2
[2017-12-06 07:25] LABS: Hematocrit 35.3 % (35.3-44.9); Hemoglobin 11.3 g/dL (11.5-15.4)
[2017-12-06] MEDS: Budesonide/Formoterol 160/4.5 1 PUFF INH IH SCH (07:27)
[2017-12-06] MEDS: Tiotropium 18 MCG inhalation IH SCH (07:27)
[2017-12-06] MEDS: Aspirin 81 MG TAB.CHEW PO SCH (07:38)
[2017-12-06] MEDS: Gabapentin 300 MG CAPSULE PO SCH (07:38)
[2017-12-06] MEDS: FLUoxetine 20 MG CAPSULE PO SCH (07:38)
[2017-12-06] MEDS: hydrOXYzine pamoate 25 MG CAPSULE PO SCH (07:38)
[2017-12-06] MEDS: Famotidine 20 MG TABLET PO SCH (07:38)
[2017-12-06] MEDS: Insulin LISPRO 300 UNITS/3 ML VIAL SQ SCH (07:39)
[2017-12-06] MEDS: Metoprolol XL (24 HR) Succ 25 MG TAB.ER.24H PO SCH (07:43)
[2017-12-06] MEDS: Diclofenac Sodium 75 MG TABLET PO SCH (07:43)
[2017-12-06 08:01] VITALS: BP 135/85
--- NOTE | 2017-12-06 09:52 | Discharge Summary ---
<Oscar Moreno - Last Filed: 12/06/17 11:07> Orders not resulted at time of discharge: Pending orders 12/07/17 04:00 PT/INR [Prothrombin Time INR] [COAG] AM 0400 12/08/17 04:00 PT/INR [Prothrombin Time INR] [COAG] AM 0400 12/09/17 04:00 PT/INR [Prothrombin Time INR] [COAG] AM 0400 12/10/17 04:00 PT/INR [Prothrombin Time INR] [COAG] AM 0400 Date of Encounter: 12/06/17 Time of Encounter: 09:41 - Discharge Diagnosis (1) Sigmoid diverticulitis Priority: Primary Status: Acute (2) Hemiplegic migraine without status migrainosus Priority: Secondary Status: Chronic Qualifiers: Intractability: not intractable Qualified Code(s): G43.409 - Hemiplegic migraine, not intractable, without status migrainosus (3) Diabetes mellitus type 2 in obese Priority: Secondary Status: Chronic (4) Afib Priority: Secondary Status: Chronic Qualifiers: Atrial fibrillation type: chronic Qualified Code(s): I48.2 - Chronic atrial fibrillation (5) HTN (hypertension) Priority: Secondary Status: Chronic Qualifiers: Hypertension type: essential hypertension Qualified Code(s): I10 - Essential (primary) hypertension (6) Chronic diastolic heart failure Priority: Secondary Status: Chronic (7) CAD (coronary artery disease) Priority: Secondary Status: Chronic Qualifiers: Coronary Disease-Associated Artery/Lesion type: [place] artery [place] vs. transplanted heart: [place] heart Associated angina: without angina Qualified Code(s): I25.10 - Atherosclerotic heart disease of [place] coronary artery without angina pectoris (8) Morbid obesity with BMI of 40.0-44.9, adult Priority: Secondary Status: Chronic Hospital course: Ms. Strong is a 52 year old female who was admitted on 12/02/2017 for acute diverticulitis. Three days prior to coming to [facility] emergency department, the patient had a recent diagnosis of sigmoid diverticulitis confirmed on CT at [place]. Patient was initially sent home on Flagyl but she states that her abdominal pain was worsening. Patient complained of worsening sharp lower left abdominal pain and nothing has relieved her pain including bowel movements. Pain is constant and is not provoked by movement, food, or straining. She has associated vomiting, nausea, runny stools, and ~100 temperature measured at home. She denies radiation of pain to the back or to the right lower abdomen. CT at the abdomen in the emergency department shows that the diverticulitis has progressed. Patient was afebrile in the ED. labs showed elevated white count at 12.5. During admission, white blood count has been trending down. G.I. panel was negative. Patient received IV Invanz. Repeat CT of abdomen today shows improving diverticulitis. Patient still admits mild left lower quadrant pain only after she eats now but state that it is better compared to the day of admission. Patient states her bowel movements are still loose but denies any blood in stool. Also, patient home medication of 240mg of Verapimil was not given due to her blood pressure. Patient was given 120mg of Verapamil here on admission with relief. Patient was recommended to continue the 120mg of Verapimil until she follows up with her PCP. Patient is recommended to follow up with her primary care physician within one week and to follow up with GI as an outpatient. Patient was encouraged to drink lots of fluids and to eat a high- fiber diet. Patient was instructed to return to the hospital if symptoms worsen , if she has new symptoms, or she has any other concerns. Patient agrees with treatment plan and has no other concerns at this time. - Time Spent with Patient Total time spent providing and/or coordinating discharge services: Greater than 30 minutes - Discharge Medications Prescriptions: Verapamil ER (24 HR) [Calan SR] 120 mg PO HS #30 tablet.er Home Medications: Budesonide/Formoterol 160/4.5 [Symbicort 160/4.5] 2 puff IH BIDR 12/30/16 [ History] Insulin ASPART [NovoLOG] 2 - 10 unit SQ TIDWM PRN 12/30/16 [History] Insulin Glargine,Hum.rec.anlog [Lantus Solostar] 36 unit SQ HS 12/30/16 [History ] Nitroglycerin [Nitrostat] 0.4 mg SL Q5M PRN 12/30/16 [History] Ranitidine HCl [Acid Ladle Car Operator] 150 mg PO BID 12/30/16 [History] Tiotropium [Spiriva] 18 mcg IH DAILY 12/30/16 [History] Calcium Polycarbophil [Fibercon] 625 mg PO DAILY 03/15/17 [History] Oxygen 2 l NS HS 03/15/17 [History] LORazepam [Ativan] 0.5 mg PO HS #30 tablet 06/13/17 [Rx] hydrOXYzine pamoate [HydrOXYzine Pamoate] 50 mg PO TID #90 06/20/17 [Rx] Atorvastatin [Lipitor] 40 mg PO HS 07/03/17 [History] Quetiapine Fumarate [Seroquel] 300 mg PO HS 07/20/17 [History] Aspirin 81 mg PO DAILY #30 tab.chew 07/22/17 [Rx] Meclizine [Antivert] 12.5 mg PO BID 08/29/17 [History] Buspirone HCl [Buspar] 10 mg PO BID 09/14/17 [History] Diclofenac Sodium [Voltaren] 75 mg PO BID 09/14/17 [History] FLUoxetine HCl [Prozac] 40 mg PO BID 09/14/17 [History] Furosemide [Lasix] 20 - 40 mg PO DAILY 10/13/17 [History] Ipratropium/Albuterol Neb [Duoneb] 3 ml IH [id number] PRN 10/13/17 [History] Potassium Chloride [K-Tab ER] 10 meq PO DAILY 10/13/17 [History] Prochlorperazine Maleate [Compazine] 10 mg PO Q8HR PRN 10/13/17 [History] Metoprolol XL (24 HR) Succ [Toprol Xl] 25 mg PO BID tab.er.24h 10/20/17 [Rx] Melatonin 10 mg PO HS 10/31/17 [History] Warfarin [Coumadin] 3 mg PO SUMOWETHFRSA 10/31/17 [History] Warfarin [Coumadin] 4.5 mg PO TU 10/31/17 [History] Acetaminophen [Tylenol] 650 mg PO Q6HR PRN tablet 11/02/17 [Rx] Docusate [Colace] 100 mg PO BID #60 capsule 11/02/17 [Rx] Topiramate [Topamax] 25 mg PO HS #60 tablet 11/02/17 [Rx] Cefdinir [Omnicef] 300 mg PO BID #20 capsule 11/29/17 [Rx] HYDROcodone/Acet 5/325 mg [[place] 5-325 mg] 1 tab PO Q6H PRN 3 Days #10 tab 11/29 [Rx] Ondansetron ODT [Zofran ODT] 4 mg SL Q6HR #10 tab.rapdis 11/29/17 [Rx] Gabapentin [Neurontin] 300 mg PO TID 12/02/17 [History] Verapamil ER (24 HR) [Calan SR] 120 mg PO HS #30 tablet.er 12/06/17 [Rx] Allergies/Adverse Reactions: 3 Allergy/AdvReac Type Severity Reaction Status Date / Time baclofen Allergy Itching Verified 12/02/17 13:02 ciprofloxacin [From Cipro] Allergy Hives Verified 12/02/17 13:02 latex Allergy Rash Verified 12/02/17 13:02 Penicillins Allergy Hives Verified 12/02/17 13:02 prednisone Allergy Itching Verified 12/02/17 13:02 sulfamethoxazole Allergy Hives Verified 12/02/17 13:02 [From Bactrim] trimethoprim [From Bactrim] Allergy Hives Verified 12/02/17 13:02 cefdinir AdvReac Vomiting Verified 12/02/17 13:02 Oxycodone AdvReac Hallucinati Verified 12/02/17 13:02 ng Date of admission: 12/03/17 12:55 Primary care physician: Maurisio Ward MD Discharging clinician: Oscar Moreno Anticipated date of discharge: 12/06/17 - Constitutional Vitals: Temp Pulse Resp BP Pulse Ox 97.7 F 84 15 135/85 96 12/06/17 07:58 12/06/17 07:58 12/06/17 07:58 12/06/17 07:58 12/06/17 07:58 General appearance: Present: A&O X 3, pleasant, answers questions appropriately - Head Head exam: Present: atraumatic, normocephalic - Eye Eye exam: Present: PERRL, conjuntiva pink, sclera anicteric - ENT ENT exam: Present: mucous membranes moist - Neck Neck exam general surgery: Present: supple, trachea midline. Absent: lymphadenopathy - Respiratory Respiratory exam: Present: CTAB. Absent: accessory muscle use, rales, rhonchi, wheezes - Cardiovascular Cardiovascular exam: Present: irregular rhythm. Absent: gallop, rubs - GI/Abdominal GI/Abdominal exam: Present: normal bowel sounds, soft, tenderness (LLQ tender to palpation. ), no peritoneal signs. Absent: distended - Extremities Exam Extremities exam: Present: warm, radial pulses palpable and symmetrical. Absent : calf tenderness, cyanotic, pedal edema - Neurological Exam Neurological exam: Present: CN II-XII intact, oriented X3, no focal deficits. Absent: pronater drift, facial droop, speech deficit - Skin Skin exam: Present: dry, intact - Patient Status Disposition: Home, Self-Care Condition: Good Overall status at discharge: patient is progressing back to baseline - Discharge Instructions Instructions: Diverticulitis (DC), Diverticulitis Diet (DC) Follow Up With: Coumadin,Clinic [Other] - 12/09/17 11:00 am [facility] [Provider Group] (Web Request, Office will call patient with date and time. Thank you) Maurisio Ward MD [Primary Care Provider] - 12/09/17 9:45 am Additional Instructions: 1. Please follow up with your primary care physician within one week. 2. Please continue all of your home medications as prescribed, except your home Verapamil. Discontinue the 240mg Verapamil that you have at home. Please take the new prescribed dose of 120mg Verapamil and follow up with your primary care physician to discuss the dosing of your verapamil. 3. Please take the new prescribed medications as prescribed. 4. Please follow up with a gastroentologist within 2-3 weeks. 5. Please return to the hospital for new or worsening symptoms. - Diet and Activity Diet: other (High fiber diet) <Owen Humphreys H - Last Filed: 12/06/17 12:05> Orders not resulted at time of discharge: Pending orders 12/07/17 04:00 PT/INR [Prothrombin Time INR] [COAG] AM 0400 12/08/17 04:00 PT/INR [Prothrombin Time INR] [COAG] AM 0400 12/09/17 04:00 PT/INR [Prothrombin Time INR] [COAG] AM 0400 12/10/17 04:00 PT/INR [Prothrombin Time INR] [COAG] AM 0400 Date of Encounter: 12/06/17 Hospital course: Ms. Strong is a 52 year old female - Time Spent with Patient Total time spent providing and/or coordinating discharge services: Date of admission: 12/03/17 12:55 Primary care physician: Maurisio Ward MD - Constitutional Vitals: Temp Pulse Resp BP Pulse Ox 97.7 F 84 15 135/85 96 12/06/17 07:58 12/06/17 07:58 12/06/17 07:58 12/06/17 07:58 12/06/17 07:58 - Attending Attestation acute sigmoid diverticulitis failed Oral flagyl , has multiple abx allergies Was given the option to stay another day but prefers to go home, will come back if symptoms recur. Patient feeling better Time spent: 40 min I examined this patient and my medical decision-making was reviewed with the Resident Physician. I agree with the documented findings, disposition and treatment plan as described except to the extent set forth below.
[2017-12-06] MEDS: Ertapenem 1,000 MG in Water for inj. (sterile) 20 ML 10 ML IVP SCH (11:18)
[2017-12-06] MEDS ORDERED: *HR* Warfarin 5 MG TABLET PO ONE (18:00)
== END 2017-12-06 12:50 | disposition home or self-care (01) | DRG 392 ==
LOC: 3ANU 12:56 → EMEROO 12:56 → SUATTDRO 20:33 → 3ANU 20:51
PROVIDERS: ADMIT Pediatrics; ATTEND Internal Medicine

== ENCOUNTER 2018-01-02 19:01 | Observation (INO) ==
[2018-01-02] MEDS ORDERED: Nitroglycerin 0.4 MG TAB.SUBL SL ONE (19:29)
[2018-01-02] MEDS ORDERED: *HR* FentaNYL (PF) 100 MCG/2 ML VIAL IVP ONE ×2 (19:31→22:26)
[2018-01-02 19:41] LABS: Basophils % 0.4 %; Eosinophils # 0.1 K/mcL (0.0-0.6); Eosinophils % 1.6 %; Hematocrit 41.5 % (35.3-44.9); Hemoglobin 13.3 g/dL (11.5-15.4); Immature Granulocytes % 0.7 % (0-4); Immature Platelets 2.9 % (1.1-6.1); Lymphocytes # 2.4 K/mcL (0.6-4.6); Lymphocytes % 32.8 %; Mean Corpuscular Hemoglobin 26.9 pg (28.0-33.3); Mean Corpuscular Volume 83.8 fL (83.0-100.0); Mean Platelet Volume 9.7 fL (9.4-12.4); Monocytes # 0.5 K/mcL (0.0-1.3); Monocytes % 7.3 %; Neutrophils # 4.2 K/mcL (1.6-8.9); Platelet Count 275 K/mcL (140-400); Red Blood Count 4.95 M/mcL (3.82-4.97); Red Cell Distribution Width 12.5 % (11.5-14.5); Segmented Neutrophils % 57.2 %
--- NOTE | 2018-01-02 20:00 | Emergency Department Note ---
Disposition Clinical Impression: Chest pain Qualifiers: Chest pain type: unspecified Qualified Code(s): R07.9 - Chest pain, unspecified Head ache Qualifiers: Headache type: unspecified Headache chronicity pattern: chronic headache Intractability: not intractable Qualified Code(s): R51 - Headache Disposition: Admitted As Inpatient Condition: Good Referrals: Maurisio Ward MD [Partnered Physician] - Forms: ED Satisfaction Letter Time of Disposition: 23:16 General Adult HPI - General Chief complaint: ED Headache Stated complaint: Chest pain TORIBIO back/neck/shoulder pain Time Seen by Provider: 01/02/18 19:18 Source: EMS Limitations: no limitations Nursing Notes Reviewed: Yes Vital Signs Reviewed: Yes - History of Present Illness HPI Narrative: Chest pain and headache that began today around 5 PM. Pain is like a pressure sensation on her chest. No associated shortness of breath. Does radiates to her left neck and up to her head. No nausea or vomiting. Has not tried anything to make the pain better. Pain Scale: 8 - Related Data Home Medications Medication Instructions Recorded Confirmed Budesonide/Formoterol 160/4.5 2 puff IH BIDR 12/30/16 12/27/17 [Symbicort 160/4.5] Insulin ASPART [NovoLOG] 2 - 10 unit SQ TIDWM PRN 12/30/16 12/27/17 Insulin Glargine,Hum.rec.anlog 36 unit SQ HS 12/30/16 12/27/17 [Lantus Solostar] Nitroglycerin [Nitrostat] 0.4 mg SL Q5M PRN 12/30/16 12/27/17 Ranitidine HCl [Acid Cardiac Rehabilitation Specialist] 150 mg PO BID 12/30/16 12/27/17 Tiotropium [Spiriva] 18 mcg IH DAILY 12/30/16 12/27/17 Calcium Polycarbophil [Fibercon] 625 mg PO DAILY 03/15/17 12/27/17 Oxygen 2 l NS HS 03/15/17 12/27/17 Atorvastatin [Lipitor] 40 mg PO HS 07/03/17 12/27/17 Quetiapine Fumarate [Seroquel] 300 mg PO HS 07/20/17 12/27/17 Buspirone HCl [Buspar] 10 mg PO BID 09/14/17 12/27/17 Diclofenac Sodium [Voltaren] 75 mg PO BID 09/14/17 12/27/17 Furosemide [Lasix] 20 - 40 mg PO DAILY 10/13/17 12/27/17 Ipratropium/Albuterol Neb [Duoneb] 3 ml IH [id number] PRN 10/13/17 12/27/17 Potassium Chloride [K-Tab ER] 10 meq PO DAILY 10/13/17 12/27/17 Prochlorperazine Maleate 10 mg PO Q8HR PRN 10/13/17 12/27/17 [Compazine] Melatonin 10 mg PO HS 10/31/17 12/27/17 Warfarin [Coumadin] 3 mg PO SUMOWETHFRSA 10/31/17 12/27/17 Acetaminophen [Tylenol] 650 mg PO Q6HR PRN 01/02/18 01/02/18 Albuterol Neb [Proventil Neb] 2.5 mg IH QID PRN 01/02/18 01/02/18 FLUoxetine HCl [Prozac] 80 mg PO DAILY 01/02/18 01/02/18 Gabapentin [Neurontin] 400 mg PO TID 01/02/18 01/02/18 Meclizine HCl [Verticalm] 25 mg PO BID PRN 01/02/18 01/02/18 Topiramate [Topamax] 25 mg PO BID 01/02/18 01/02/18 Previous Rx's Medication Instructions Recorded LORazepam [Ativan] 0.5 mg PO HS #30 tablet 06/13/17 hydrOXYzine pamoate [HydrOXYzine 50 mg PO TID #90 06/20/17 Pamoate] Aspirin 81 mg PO DAILY #30 tab.chew 07/22/17 Metoprolol XL (24 HR) Succ [Toprol 25 mg PO BID tab.er.24h 10/20/17 Xl] Verapamil ER (24 HR) [Calan SR] 120 mg PO HS #30 tablet.er 12/06/17 Allergies Allergy/AdvReac Type Severity Reaction Status Date / Time baclofen Allergy Itching Verified 12/02/17 13:02 ciprofloxacin [From Cipro] Allergy Hives Verified 12/02/17 13:02 latex Allergy Rash Verified 12/02/17 13:02 Penicillins Allergy Hives Verified 12/02/17 13:02 prednisone Allergy Itching Verified 12/02/17 13:02 sulfamethoxazole Allergy Hives Verified 12/02/17 13:02 [From Bactrim] trimethoprim [From Bactrim] Allergy Hives Verified 12/02/17 13:02 cefdinir AdvReac Vomiting Verified 12/02/17 13:02 Oxycodone AdvReac Hallucinati Verified 12/02/17 13:02 ng All systems ED: reviewed and negative except as stated. Constitutional: Denies: fever, chills ENT ED: Denies: congestion Cardiovascular: Reports: chest pain. Denies: palpitations, syncope Respiratory: Denies: cough, dyspnea Gastrointestinal: Denies: abdominal pain, nausea, vomiting, diarrhea Genitourinary: Denies: urgency, dysuria Musculoskeletal: Denies: back pain, neck pain Integumentary: Denies: rash, abrasion Neurological: Reports: headache. Denies: weakness Past Medical History - Past Medical History Attestation: Yes The following information was validated with the patient. Source: patient Medical history: Reports: atrial fibrillation, CHF, COPD, CVA, diabetes, hyperlipidemia, hypertension, myocardial infarction, seizures, TIA Surgical history: Reports: angioplasty/stent, appendectomy, cholecystectomy, knee replacement Psychiatric history: Reports: anxiety, bipolar, depression, prior suicide attempt, previous psychiatric hospitalization TRANSFER PUMPER history: Reports: bilateral 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 - Social History Smoking Status: Current every day smoker Smokeless Tobacco Status: No Alcohol use: Reports: none Drug use: Reports: none Physical Exam - General Limitations: no limitations General appearance: alert, in no apparent distress - Head Head exam: atraumatic, normocephalic, normal inspection - Eye Eye exam: Present: normal appearance, PERRL, EOMI - ENT ENT exam: normal exam, normal oropharynx, mucous membranes moist - Neck Neck exam: Present: normal inspection, full ROM, trachea midline - Chest Chest inspection: Present: normal inspection, symmetric chest wall rise - Respiratory Respiratory exam: Present: normal lung sounds bilaterally. Absent: respiratory distress, accessory muscle use - Cardiovascular Cardiovascular exam: Present: regular rate, normal rhythm, normal heart sounds - Abdominal Exam Abdominal exam: Present: soft, Non-Tender - Extremities Exam Extremities exam: Present: normal inspection, full ROM, normal capillary refill. Absent: tenderness, pedal edema - Back Exam Back exam: Present: normal inspection, full ROM. Absent: tenderness - Neurological Exam Neurological exam: Present: alert, oriented X3 - Psychiatric Psychiatric exam: Present: normal affect, normal mood - Skin Skin exam: Present: warm, dry, intact, normal color. Absent: rash, cyanosis Course Course Narrative: Patient plenty of a one-week history of headache. She states it waxes and wanes. She states that every time she gets a headache she also gets some slurred speech. This is normal for her. She is very insistent on this. She states that earlier today she started having chest pain as well. She describes it as a pressure in the center of her chest. She is also having pain in her right shoulder and right neck. Associated With her chest pain. She denies shortness of breath with this. She is a smoker and has history of stent placement and is diabetic. She has no associated nausea. The pain is not reproducible on palpation. Her lung sounds are clear and heart tones are normal. Abdomen is soft and nontender. - Reevaluation(s) Reevaluation #1: Female patient is now complaining of a funny feeling in her head. Despite her insistence that she does have slurred speech when she has a we will CT scan patient's at this time. Time: 20:09 Reevaluation #2: Patient is blood pressure responded to a liter bolus of fluid. She is now saying that her chest pain radiates to her back. We will get a CTA of patient' s chest at this time. Time: 20:56 - Consultations Consultation #1: Dr Rust accepted Pt in stable condition. Vital Signs Temperature 98.2 F 01/02/18 19:02 Pulse Rate 80 01/02/18 19:02 Respiratory Rate 16 01/02/18 19:02 Blood Pressure 107/67 01/02/18 19:02 O2 Sat by Pulse Oximetry 95 01/02/18 19:02 Temperature 98.2 F 01/02/18 19:02 Pulse Rate 89 01/02/18 22:42 Respiratory Rate 18 01/02/18 22:42 Blood Pressure 125/88 01/02/18 22:42 O2 Sat by Pulse Oximetry 94 01/02/18 22:42 Oxygen Delivery Oxygen Delivery Room Air Medical Decision Making - Medical Records Medical records reviewed: Yes I reviewed the patient's medical records. - Lab Data Lab results reviewed: Yes I reviewed the patient's lab results. Result diagrams: 01/02/18 19:20 01/02/18 19:20 Lab Results 01/02/18 01/02/18 01/02/18 Range/Units 19:20 19:20 22:07 WBC 7.4 (4.3-11.1) K/mcL RBC 4.95 (3.82-4.97) M/mcL Hgb 13.3 (11.5-15.4) g/dL Hct 41.5 (35.3-44.9) % MCV 83.8 (83.0-100.0) fL MCH 26.9 L (28.0-33.3) pg MCHC 32.0 (31.6-35.5) g/dL RDW 12.5 (11.5-14.5) % Plt Count 275 (140-400) K/mcL MPV 9.7 (9.4-12.4) fL Immature Gran % 0.7 (0-4) % Seg Neutrophils % 57.2 % Lymphocytes % 32.8 % Monocytes % 7.3 % Eosinophils % 1.6 % Basophils % 0.4 % Neutrophils # 4.2 (1.6-8.9) K/mcL Lymphocytes # 2.4 (0.6-4.6) K/mcL Monocytes # 0.5 (0.0-1.3) K/mcL Eosinophils # 0.1 (0.0-0.6) K/mcL Basophils # 0.0 (0.0-0.2) K/mcL Immature Plt Fraction 2.9 (1.1-6.1) % Sodium 137 (136-145) mEq/L Potassium 3.5 (3.5-5.1) mEq/L Chloride 105 (98-107) mEq/L Carbon Dioxide 24 (23-29) mEq/L BUN 9 (6-20) mg/dL Creatinine 0.71 (0.60-1.20) mg/dL Est GFR ( Amer) > 60 (> 60) Est GFR (Non-Af Amer) > 60 (> 60) BUN/Creatinine Ratio 13 (6-26) Glucose 154 H (70-105) mg/dL Calculated Osmolality 286 (280-300) Calcium 9.0 (8.6-10.3) mg/dL Troponin I < 0.03 (< 0.04) ng/mL Urine Color Yellow (Yellow) Urine Clarity Cloudy A (Clear) Urine pH 7.0 (5.0-8.0) pH Units Ur Specific Lottie > 1.030 H (1.010-1.025) Urine Protein Negative (Neg-Trace) mg/dL Urine Glucose (UA) Normal (Normal) mg/dL Urine Ketones Negative (Negative) mg/dL Urine Blood Negative (Negative) Urine Nitrite Negative (Negative) Urine Bilirubin Negative (Negative) Urine Urobilinogen Normal (Normal) mg/dL Ur Leukocyte Esterase Negative (Negative) Urine Microscopic RBC 0-3 (0-3) per hpf Urine Microscopic WBC 0-3 (0-3) per hpf Ur Squamous Epith Cells Many H (None-Few) per lpf Urine Bacteria None Seen (None-Few) per hpf Hyaline Casts None Seen (None-Few) per lpf Ur Culture Indicated? NO (NO) - Radiology Data Radiology results reviewed: Yes I reviewed the patient's radiology results. Chest X-Ray 01/02/18 19:29 IMPRESSION: No acute cardiopulmonary abnormality. D/ / Derick Rodriges / Derick Rodriges Interpreting Provider: Derick Rodriges Head CT 01/02/18 20:08 IMPRESSION: No acute intracranial abnormality. D/ / Tony Smith MD / Tony Smith MD Interpreting Provider: Tony Smith MD - EKG Data EKG #1 EKG attestation: Yes I reviewed and interpreted this EKG. EKG results narrative: Sinus rhythm with a left bundle branch block. Ventricular rate is 78. CO interval is 188. QRS duration is 145. QT is 433. QTC is 467. No signs of acute ischemia. Does not need Scarbosa criteria. No significant change from previous EKG dated 08/01/2013
[2018-01-02 20:04] LABS: BUN/Creatinine Ratio 13 (6-26); Blood Urea Nitrogen 9 mg/dL (6-20); Carbon Dioxide 24 mEq/L (23-29); Chloride 105 mEq/L (98-107); Glucose 154 mg/dL (70-105); Osmolality,Calculated 286 (280-300); Potassium 3.5 mEq/L (3.5-5.1); Sodium 137 mEq/L (136-145); eGFR For African Americans > 60 (> 60); eGFR For Non-African Americans > 60 (> 60)
[2018-01-02 20:05] LABS: Troponin I < 0.03 ng/mL (< 0.04)
[2018-01-02] MEDS ORDERED: 0.9 % Sodium Chloride 1,000 ML IVC ONE (20:35)
[2018-01-02] MEDS ORDERED: 0.9 % Sodium Chloride 1,000 ML ONE (20:35)
--- NOTE | 2018-01-02 20:35 | Emergency Department Note ---
Disposition Clinical Impression: Chest pain Qualifiers: Chest pain type: unspecified Qualified Code(s): R07.9 - Chest pain, unspecified Head ache Qualifiers: Headache type: unspecified Headache chronicity pattern: chronic headache Intractability: not intractable Qualified Code(s): R51 - Headache Disposition: Admitted As Inpatient Condition: Good General Adult HPI - General Chief complaint: ED Headache Stated complaint: Chest pain TORIBIO back/neck/shoulder pain Time Seen by Provider: 01/02/18 19:18 Source: EMS Limitations: no limitations Nursing Notes Reviewed: Yes Vital Signs Reviewed: Yes - History of Present Illness Pain Scale: 8 - Related Data Home Medications Medication Instructions Recorded Confirmed Budesonide/Formoterol 160/4.5 2 puff IH BIDR 12/30/16 01/02/18 [Symbicort 160/4.5] Insulin ASPART [NovoLOG] 2 - 10 unit SQ TIDWM 12/30/16 01/02/18 Insulin Glargine,Hum.rec.anlog 35 unit SQ HS 12/30/16 01/02/18 [Lantus Solostar] Nitroglycerin [Nitrostat] 0.4 mg SL Q5M PRN 12/30/16 01/02/18 Ranitidine HCl [Acid Productivity Engineer] 150 mg PO BID 12/30/16 01/02/18 Tiotropium [Spiriva] 18 mcg IH DAILY 12/30/16 01/02/18 Calcium Polycarbophil [Fibercon] 625 mg PO DAILY 03/15/17 01/02/18 Oxygen 2 l NS HS 03/15/17 01/02/18 Atorvastatin [Lipitor] 40 mg PO HS 07/03/17 01/02/18 Quetiapine Fumarate [Seroquel] 300 mg PO HS 07/20/17 01/02/18 Buspirone HCl [Buspar] 10 mg PO BID 09/14/17 01/02/18 Diclofenac Sodium [Voltaren] 75 mg PO BID 09/14/17 01/02/18 Furosemide [Lasix] 20 - 40 mg PO DAILY 10/13/17 01/02/18 Ipratropium/Albuterol Neb [Duoneb] 3 ml IH [id number] PRN 10/13/17 01/02/18 Potassium Chloride [K-Tab ER] 10 meq PO DAILY 10/13/17 01/02/18 Prochlorperazine Maleate 10 mg PO Q8HR PRN 10/13/17 01/02/18 [Compazine] Melatonin 10 mg PO HS 10/31/17 01/02/18 Warfarin [Coumadin] 3 mg PO QPM 10/31/17 01/02/18 Acetaminophen [Tylenol] 650 mg PO Q6HR PRN 01/02/18 01/02/18 Albuterol Neb [Proventil Neb] 2.5 mg IH QID PRN 01/02/18 01/02/18 FLUoxetine HCl [Prozac] 80 mg PO DAILY 01/02/18 01/02/18 Gabapentin [Neurontin] 400 mg PO TID 01/02/18 01/02/18 Meclizine HCl [Verticalm] 25 mg PO BID PRN 01/02/18 01/02/18 Topiramate [Topamax] 25 mg PO BID 01/02/18 01/02/18 Previous Rx's Medication Instructions Recorded LORazepam [Ativan] 0.5 mg PO HS #30 tablet 06/13/17 hydrOXYzine pamoate [HydrOXYzine 50 mg PO TID #90 06/20/17 Pamoate] Aspirin 81 mg PO DAILY #30 tab.chew 07/22/17 Metoprolol XL (24 HR) Succ [Toprol 25 mg PO BID tab.er.24h 10/20/17 Xl] Verapamil ER (24 HR) [Calan SR] 120 mg PO HS #30 tablet.er 12/06/17 Allergies Allergy/AdvReac Type Severity Reaction Status Date / Time baclofen Allergy Itching Verified 12/02/17 13:02 ciprofloxacin [From Cipro] Allergy Hives Verified 12/02/17 13:02 latex Allergy Rash Verified 12/02/17 13:02 Penicillins Allergy Hives Verified 12/02/17 13:02 prednisone Allergy Itching Verified 12/02/17 13:02 sulfamethoxazole Allergy Hives Verified 12/02/17 13:02 [From Bactrim] trimethoprim [From Bactrim] Allergy Hives Verified 12/02/17 13:02 cefdinir AdvReac Vomiting Verified 12/02/17 13:02 Oxycodone AdvReac Hallucinati Verified 12/02/17 13:02 ng Past Medical History - Past Medical History Medical history: Reports: atrial fibrillation, CHF, COPD, CVA, diabetes, hyperlipidemia, hypertension, myocardial infarction, seizures, TIA Surgical history: Reports: angioplasty/stent, appendectomy, cholecystectomy, knee replacement Psychiatric history: Reports: anxiety, bipolar, depression, prior suicide attempt, previous psychiatric hospitalization PEDORTHIST history: Reports: bilateral 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 - Social History Smoking Status: Current every day smoker Smokeless Tobacco Status: No Alcohol use: Reports: none Drug use: Reports: none Physical Exam - General Limitations: no limitations General appearance: alert, in no apparent distress Course Vital Signs Temperature 98.2 F 01/02/18 19:02 Pulse Rate 80 01/02/18 19:02 Respiratory Rate 16 01/02/18 19:02 Blood Pressure 107/67 01/02/18 19:02 O2 Sat by Pulse Oximetry 95 01/02/18 19:02 Temperature 98.0 F 01/03/18 05:07 Pulse Rate 80 01/03/18 05:07 Respiratory Rate 16 01/03/18 05:07 Blood Pressure 121/71 01/03/18 05:07 O2 Sat by Pulse Oximetry 95 01/03/18 05:07 Oxygen Delivery Oxygen Delivery Nasal Cannula Medical Decision Making - Lab Data Result diagrams: 01/02/18 19:20 01/02/18 19:20 Lab Results 01/02/18 01/02/18 01/02/18 Range/Units 19:20 19:20 22:07 WBC 7.4 (4.3-11.1) K/mcL RBC 4.95 (3.82-4.97) M/mcL Hgb 13.3 (11.5-15.4) g/dL Hct 41.5 (35.3-44.9) % MCV 83.8 (83.0-100.0) fL MCH 26.9 L (28.0-33.3) pg MCHC 32.0 (31.6-35.5) g/dL RDW 12.5 (11.5-14.5) % Plt Count 275 (140-400) K/mcL MPV 9.7 (9.4-12.4) fL Immature Gran % 0.7 (0-4) % Seg Neutrophils % 57.2 % Lymphocytes % 32.8 % Monocytes % 7.3 % Eosinophils % 1.6 % Basophils % 0.4 % Neutrophils # 4.2 (1.6-8.9) K/mcL Lymphocytes # 2.4 (0.6-4.6) K/mcL Monocytes # 0.5 (0.0-1.3) K/mcL Eosinophils # 0.1 (0.0-0.6) K/mcL Basophils # 0.0 (0.0-0.2) K/mcL Immature Plt Fraction 2.9 (1.1-6.1) % Sodium 137 (136-145) mEq/L Potassium 3.5 (3.5-5.1) mEq/L Chloride 105 (98-107) mEq/L Carbon Dioxide 24 (23-29) mEq/L BUN 9 (6-20) mg/dL Creatinine 0.71 (0.60-1.20) mg/dL Est GFR ( Amer) > 60 (> 60) Est GFR (Non-Af Amer) > 60 (> 60) BUN/Creatinine Ratio 13 (6-26) Glucose 154 H (70-105) mg/dL Calculated Osmolality 286 (280-300) Calcium 9.0 (8.6-10.3) mg/dL Troponin I < 0.03 (< 0.04) ng/mL Urine Color Yellow (Yellow) Urine Clarity Cloudy A (Clear) Urine pH 7.0 (5.0-8.0) pH Units Ur Specific Donalds > 1.030 H (1.010-1.025) Urine Protein Negative (Neg-Trace) mg/dL Urine Glucose (UA) Normal (Normal) mg/dL Urine Ketones Negative (Negative) mg/dL Urine Blood Negative (Negative) Urine Nitrite Negative (Negative) Urine Bilirubin Negative (Negative) Urine Urobilinogen Normal (Normal) mg/dL Ur Leukocyte Esterase Negative (Negative) Urine Microscopic RBC 0-3 (0-3) per hpf Urine Microscopic WBC 0-3 (0-3) per hpf Ur Squamous Epith Cells Many H (None-Few) per lpf Urine Bacteria None Seen (None-Few) per hpf Hyaline Casts None Seen (None-Few) per lpf Ur Culture Indicated? NO (NO) Attestation Statement - Attestation Attestation: I, Gallo Castro, examined this patient and my medical decision-making was reviewed with the EQUITY MANAGER/PA/Advanced Practice Nurse/Resident Physician. I agree with the documented findings, disposition and treatment plan as described except to the extent set forth below. 52-year-old female presents emergency Department with concerns of chest pain and headache. Patient states symptoms started about 2 hours prior to arrival to the emergency department around 5:00 PM. Patient states the chest pain as a pressure in the center of her chest, she denies associated diaphoresis, palpitations or syncopal events. Patient also reports a history of migraine which is similar to migraine she has had the past. She does report a history of aneurysm. Patient feels nauseated with her headache and chest pain. Initial EKG showed a normal sinus rhythm with a rate of 78 with a left bundle branch block that was unchanged from previous. Initial troponin negative. CT of the head was negative for acute hemorrhage. Patient given medications in the ED to treat her headache with moderate improvement. Patient will be admitted to hospitalist for further care and evaluation of her acute onset chest pain.
[2018-01-02] MEDS: Aspirin 81 MG TAB.CHEW PO ONE ×2 (20:36→21:38)
[2018-01-02] MEDS ORDERED: *HR* LORazepam 0.5 MG TABLET PO SCH (21:00)
[2018-01-02 22:16] LABS: Bilirubin,Urine Negative (Negative); Blood,Urine Negative (Negative); Clarity,Urine Cloudy (Clear); Color,Urine Yellow (Yellow); Glucose,Urine (UA) Normal (Normal); Ketones,Urine Negative (Negative); Leukocyte Esterase,Urine Negative (Negative); Nitrite,Urine Negative (Negative); Protein,Urine Negative (Neg-Trace); Specific Gravity,Urine > 1.030 (1.010-1.025); Urobilinogen,Urine Normal (Normal)
[2018-01-02 22:19] LABS: Bacteria,Urine None Seen per hpf (None-Few); Hyaline Casts,Urine None Seen per lpf (None-Few); RBC,Urine 0-3 per hpf (0-3); Squamous Epithelial Cell,Urine Many per lpf (None-Few); WBC,Urine 0-3 per hpf (0-3)
[2018-01-02] MEDS ORDERED: Albuterol 2.5 MG/3 ML NEBULIZER IH PRN (22:48)
[2018-01-02] MEDS ORDERED: Acetaminophen 325 MG TABLET PO PRN (22:48)
[2018-01-02] MEDS ORDERED: Ipratropium/Albuterol Neb 3 ML IH PRN (22:48)
[2018-01-02] MEDS ORDERED: D5% in Water 1,000 ML IVC PRN (22:53)
[2018-01-02] MEDS ORDERED: Dextrose Gel 15 GM/37.5 ML TUBE PO PRN ×2 (22:53)
[2018-01-02] MEDS ORDERED: *HR* Dextrose 50 % in Water (Syg) 50 ML SYRINGE IVP PRN (22:53)
[2018-01-02] MEDS ORDERED: Naloxone 0.4 MG/ML INJ IVP PRN (22:54)
[2018-01-02] MEDS ORDERED: Ketorolac 15 MG/ML VIAL IVP PRN (22:58)
--- NOTE | 2018-01-02 23:01 | Internal Med History&Physical ---
Date of Encounter: 01/02/18 Time of Encounter: 22:59 Assessment and Plan (1) Chest pain Current visit: No Status: Resolved Chest pain occurred after migraine. Suspect related to migraine with extra neurological manifestation. Given cardiac history would trend troponin. We will treat migraine to see of chest pain would improve. Qualifiers: Chest pain type: unspecified Qualified Code(s): R07.9 - Chest pain, unspecified (2) Migraine Current visit: Yes Status: Acute Appears to be exacerbation of migraine. When necessary IV abortive medicine with Toradol. Consider increasing Topamax prophylaxis although patient has features of polypharmacy which may be contributing to all her symptoms Qualifiers: Intractability: intractable Qualified Code(s): G43.011 - Migraine without aura, intractable, with status migrainosus (3) Afib Current visit: No Status: Chronic P. A. fib. Continue rate agent. Continue Coumadin, trend INR Qualifiers: Atrial fibrillation type: chronic Qualified Code(s): I48.2 - Chronic atrial fibrillation (4) CAD (coronary artery disease) Current visit: No Status: Chronic on cardiac medicine Qualifiers: Coronary Disease-Associated Artery/Lesion type: [place] artery [place] vs. transplanted heart: [place] heart Associated angina: without angina Qualified Code(s): I25.10 - Atherosclerotic heart disease of [place] coronary artery without angina pectoris (5) COPD (chronic obstructive pulmonary disease) Current visit: No Status: Chronic Compensated. On room air Qualifiers: COPD type: COPD with acute exacerbation Qualified Code(s): J44.1 - Chronic obstructive pulmonary disease with (acute) exacerbation (6) Diabetes mellitus type 2 in obese Current visit: No Status: Chronic Continue insulin (7) CHF (congestive heart failure), NYHA class I Current visit: Yes Status: Acute Compensated, takes when necessary Lasix Qualifiers: Congestive heart failure type: combined Congestive heart failure chronicity : chronic Qualified Code(s): I50.42 - Chronic combined systolic (congestive) and diastolic (congestive) heart failure Internal Medicine - H&P: HPI Chief complaint: Chest pain , migraine History of present illness: Ms. Strong is a 52 year old female who is admitted for chest pain and complicated migraine evaluation. Patient has as history of atrial fibrillation on Coumadin, CAD status post stent 1 in [address] Gregory of cardiology. Patient developed right-sided temporal migraine since 5 PM this past evening, 8 out of 10, throbbing in quality, worse with sound, no much worse with bright lights. 20 minutes after migraine, she developed left-sided chest pain, throbbing in quality, radiate to the sternal midline, 7 out of 10, down, throbbing in quality. Symptoms improved with IV fentanyl. EKG personally reviewed with rate of 78, unchanged left bundle branch block CT/CT angio chest IMPRESSION: No evidence of acute pulmonary embolism. Focal scarring versus atelectasis in the left lower lobe and lingula. Otherwise no acute cardiopulmonary process. CT/CT head/brain wo con IMPRESSION: No acute intracranial abnormality. XR/XR chest 1V portable IMPRESSION: No acute cardiopulmonary abnormality. Past Med Surg Social Fam HX - Past Medical History Medical history: atrial fibrillation, CHF, COPD, CVA, diabetes, hyperlipidemia, hypertension, myocardial infarction, seizures, TIA Psychiatric history: anxiety, bipolar, depression, prior suicide attempt, previous psychiatric hospitalization - Past Surgical History Surgical History: angioplasty/stent, appendectomy, cholecystectomy, knee replacement - Social History Smoking Status: Current every day smoker Smokeless Tobacco Status: No Alcohol use: none Drug use: none - Family History Father Family Member Ethnicity: Non- Living Status: Sister Family Member Ethnicity: Non- Living Status: Still Living Grandfather Family Member Ethnicity: Non- Living Status: Hx Family Cardiac Disorders: Yes (AR, CAD) Mother Family Member Ethnicity: Non- Living Status: Hx Family Cardiac Disorders: Yes (chf) Hx Family Respiratory Disorders: Yes (copd) Hx Family Cancer: No Hx Family GI Disorders: No Hx Family Endocrine Disorder: No Hx Family Neuromuscular Disorders: No Hx Family Neurologic Disorders: No Hx Family HEENT Disorders: No Hx Family Autoimmune Disorders: No Internal Medicine - H&P: Meds Budesonide/Formoterol 160/4.5 [Symbicort 160/4.5] 2 puff IH BIDR 12/30/16 [ History] Insulin ASPART [NovoLOG] 2 - 10 unit SQ TIDWM 12/30/16 [History] Insulin Glargine,Hum.rec.anlog [Lantus Solostar] 35 unit SQ HS 12/30/16 [History ] Nitroglycerin [Nitrostat] 0.4 mg SL Q5M PRN 12/30/16 [History] Ranitidine HCl [Acid Marketing Content Manager] 150 mg PO BID 12/30/16 [History] Tiotropium [Spiriva] 18 mcg IH DAILY 12/30/16 [History] Calcium Polycarbophil [Fibercon] 625 mg PO DAILY 03/15/17 [History] Oxygen 2 l NS HS 03/15/17 [History] LORazepam [Ativan] 0.5 mg PO HS #30 tablet 06/13/17 [Rx] hydrOXYzine pamoate [HydrOXYzine Pamoate] 50 mg PO TID #90 06/20/17 [Rx] Atorvastatin [Lipitor] 40 mg PO HS 07/03/17 [History] Quetiapine Fumarate [Seroquel] 300 mg PO HS 07/20/17 [History] Aspirin 81 mg PO DAILY #30 tab.chew 07/22/17 [Rx] Buspirone HCl [Buspar] 10 mg PO BID 09/14/17 [History] Diclofenac Sodium [Voltaren] 75 mg PO BID 09/14/17 [History] Furosemide [Lasix] 20 - 40 mg PO DAILY 10/13/17 [History] Ipratropium/Albuterol Neb [Duoneb] 3 ml IH D2ARNGE PRN 10/13/17 [History] Potassium Chloride [K-Tab ER] 10 meq PO DAILY 10/13/17 [History] Prochlorperazine Maleate [Compazine] 10 mg PO Q8HR PRN 10/13/17 [History] Metoprolol XL (24 HR) Succ [Toprol Xl] 25 mg PO BID tab.er.24h 10/20/17 [Rx] Melatonin 10 mg PO HS 10/31/17 [History] Warfarin [Coumadin] 3 mg PO QPM 10/31/17 [History] Verapamil ER (24 HR) [Calan SR] 120 mg PO HS #30 tablet.er 12/06/17 [Rx] Acetaminophen [Tylenol] 650 mg PO Q6HR PRN 01/02/18 [History] Albuterol Neb [Proventil Neb] 2.5 mg IH QID PRN 01/02/18 [History] FLUoxetine HCl [Prozac] 80 mg PO DAILY 01/02/18 [History] Gabapentin [Neurontin] 400 mg PO TID 01/02/18 [History] Meclizine HCl [Verticalm] 25 mg PO BID PRN 01/02/18 [History] Topiramate [Topamax] 25 mg PO BID 01/02/18 [History] 3 Allergy/AdvReac Type Severity Reaction Status Date / Time baclofen Allergy Itching Verified 12/02/17 13:02 ciprofloxacin [From Cipro] Allergy Hives Verified 12/02/17 13:02 latex Allergy Rash Verified 12/02/17 13:02 Penicillins Allergy Hives Verified 12/02/17 13:02 prednisone Allergy Itching Verified 12/02/17 13:02 sulfamethoxazole Allergy Hives Verified 12/02/17 13:02 [From Bactrim] trimethoprim [From Bactrim] Allergy Hives Verified 12/02/17 13:02 cefdinir AdvReac Vomiting Verified 12/02/17 13:02 Oxycodone AdvReac Hallucinati Verified 12/02/17 13:02 ng All Systems PM: A 10-system review of systems was performed and is negative for pertinent findings except as documented above in the HPI. Review of systems: ROS 14 point review of systems reviewed as best as possible given presentation. Pertinent positive or negative as per HPI or otherwise reviewed as negative - Constitutional Vitals: Temp Pulse Resp BP Pulse Ox 98.2 F 89 18 125/88 94 01/02/18 19:02 01/02/18 22:42 01/02/18 22:42 01/02/18 22:42 01/02/18 22:42 Exam: General - AAO x 3 Psych - Appropriate affect/speech. No agitation Eyes - [place]. Eye lids intact. No scleral icterus Neuro - No gross peripheral or central neuro deficits on inspection Heart - Sinus. RRR. S1 and S2 present. No added HS/murmurs appreciated. No elevated JVD appreciated. Lung - Adequate air entry b/l, No crackles/wheezes appreciated GI - Soft, non-tender. No hepatosplenomegaly/ascites. BS+ - No CVA/suprapubic tenderness or palpable bladder distension Skin - Intact. No rash/petechiae/ecchymosis. Warm extremities Internal Med - H&P Results - Labs CBC & Chem 7: 01/02/18 19:20 01/02/18 19:20 Labs: Short CBC 01/02/18 Range/Units 19:20 WBC 7.4 (4.3-11.1) K/mcL Hgb 13.3 (11.5-15.4) g/dL Hct 41.5 (35.3-44.9) % Plt Count 275 (140-400) K/mcL Neutrophils # 4.2 (1.6-8.9) K/mcL BMP 01/02/18 19:20 Sodium 137 Potassium 3.5 Chloride 105 Carbon Dioxide 24 BUN 9 Creatinine 0.71 Glucose 154 H Calcium 9.0 Cardiac Enzymes 01/02/18 Range/Units 19:20 Troponin I < 0.03 (< 0.04) ng/mL Urine 01/02/18 Range/Units 22:07 Urine Color Yellow (Yellow) Urine Clarity Cloudy A (Clear) Urine pH 7.0 (5.0-8.0) pH Units Ur Specific [place] > 1.030 H (1.010-1.025) Urine Protein Negative (Neg-Trace) mg/dL Urine Glucose (UA) Normal (Normal) mg/dL - Impressions ITS Impressions Chest X-Ray 01/02/18 19:29 IMPRESSION: No acute cardiopulmonary abnormality. D/ / Derick Rodriges / Derick Rodriges Interpreting Provider: Derick Rodriges Head CT 01/02/18 20:08 IMPRESSION: No acute intracranial abnormality. D/ / Tony Smith MD / Tony Smith MD Interpreting Provider: Tony Smith MD Chest CTA 01/02/18 20:54 IMPRESSION: No evidence of acute pulmonary embolism. Focal scarring versus atelectasis in the left lower lobe and lingula. Otherwise no acute cardiopulmonary process. D/ / Tony Smith MD / Tony Smith MD Interpreting Provider: Tony Smith MD
[2018-01-03] MEDS: hydrOXYzine pamoate 25 MG CAPSULE PO SCH ×4 (04:10→21:54)
[2018-01-03] MEDS: Verapamil ER (24 HR) 120 MG TABLET.ER PO SCH ×2 (04:10→21:53)
[2018-01-03 07:30] LABS: INR 2.1; Prothrombin Time 22.9 Seconds (9.4-12.1)
[2018-01-03 07:33] LABS: Troponin I < 0.03 ng/mL (< 0.04)
[2018-01-03 07:42] LABS: BUN/Creatinine Ratio 14 (6-26); Blood Urea Nitrogen 10 mg/dL (6-20); Calcium 8.4 mg/dL (8.6-10.3); Carbon Dioxide 23 mEq/L (23-29); Chloride 110 mEq/L (98-107); Glucose 109 mg/dL (70-105); Osmolality,Calculated 288 (280-300); Potassium 3.9 mEq/L (3.5-5.1); Sodium 139 mEq/L (136-145); eGFR For African Americans > 60 (> 60); eGFR For Non-African Americans > 60 (> 60)
[2018-01-03] MEDS: Insulin LISPRO 300 UNITS/3 ML VIAL SQ SCH ×3 (08:15→18:59)
[2018-01-03] MEDS: Gabapentin 400 MG CAPSULE PO SCH ×3 (08:23→21:53)
[2018-01-03] MEDS: Aspirin 81 MG TAB.CHEW PO SCH (08:24)
[2018-01-03] MEDS: Famotidine 20 MG TABLET PO SCH ×2 (08:24→18:59)
[2018-01-03] MEDS: Furosemide 40 MG TABLET PO SCH (08:24)
[2018-01-03] MEDS: Budesonide/Formoterol 160/4.5 MDI IH SCH ×2 (10:28→22:19)
[2018-01-03] MEDS: Tiotropium 18 MCG inhalation IH SCH (10:29)
[2018-01-03] MEDS: FLUoxetine 20 MG CAPSULE PO SCH (10:40)
[2018-01-03] MEDS: Topiramate 25 MG TABLET PO SCH ×2 (10:40→21:54)
[2018-01-03] MEDS: Metoprolol XL (24 HR) Succ 25 MG TAB.ER.24H PO SCH ×2 (10:40→21:54)
[2018-01-03] MEDS: Diclofenac Sodium 75 MG TABLET PO SCH ×2 (10:40→21:54)
[2018-01-03 13:21] LABS: Hemoglobin 13.5 g/dL (11.5-15.4); Mean Corpuscular HGB Conc 32.1 g/dL (31.6-35.5); Mean Corpuscular Hemoglobin 26.9 pg (28.0-33.3); Mean Corpuscular Volume 83.8 fL (83.0-100.0); Mean Platelet Volume 9.5 fL (9.4-12.4); Platelet Count 247 K/mcL (140-400); Red Blood Count 5.01 M/mcL (3.82-4.97); Red Cell Distribution Width 12.3 % (11.5-14.5)
[2018-01-03 13:28] LABS: INR 2.2; Prothrombin Time 23.6 Seconds (9.4-12.1)
[2018-01-03] MEDS ORDERED: SUMAtriptan 6 MG/0.5 ML SQ ONE (13:28)
--- NOTE | 2018-01-03 16:08 | Internal Med Progress Note ---
Date of Encounter: 01/03/18 Time of Encounter: 12:30 - Assessment and plan (1) CVA (cerebral vascular accident) Current Visit: No Status: Acute Assessment and plan: per hx with residual left upper extremity weakness. Was found to have slurred speech on 01/03/18 exam; last known well 11 AM. Blood glucose 120, stat head CT non-acute. Discussed with Dr. Tabor at [facility] via telemetry stroke; TPA not recommended as symptoms rapidly improving. No further neurological workup or transfer to tertiary hospital recommended this time as neurology did not feel symptoms are consistent with CVA. Slurred speech possibly secondary to conversion disorder, migraine, stress/anxiety. Give one-time dose Imitrex for migraine. Consider psych consult for possible conversion disorder if symptoms recur. Continue home ASA, warfarin, statin, BB Qualifiers: CVA mechanism: unspecified Qualified Code(s): I63.9 - Cerebral infarction, unspecified (2) Afib Current Visit: No Status: Chronic Assessment and plan: hx PAF. EKG with sinus rhythm. Continue home ASA, BB, Coumadin. Qualifiers: Atrial fibrillation type: chronic Qualified Code(s): I48.2 - Chronic atrial fibrillation (3) CAD (coronary artery disease) Current Visit: No Status: Chronic Assessment and plan: per hx. 11/2017 [facility] with nonobstructive CAD. Continue home ASA, Coumadin, statin. Qualifiers: Coronary Disease-Associated Artery/Lesion type: [place] artery [place] vs. transplanted heart: [place] heart Associated angina: without angina Qualified Code(s): I25.10 - Atherosclerotic heart disease of [place] coronary artery without angina pectoris (4) HTN (hypertension) Current Visit: No Status: Chronic Assessment and plan: per hx. BP controlled. Cont home BP medication. Monitor BP and titrate PRN Qualifiers: Hypertension type: essential hypertension Qualified Code(s): I10 - Essential (primary) hypertension (5) DVT prophylaxis Current Visit: No Status: Acute - Subjective Interval history: Seen and examined at bedside. Patient is new to me from previous admissions. Patient was found to have slurred speech upon my exam, this was discussed with RN who noted this was a new finding. Last known well 11 AM. Stroke code was called. Blood glucose 120, stat head CT unremarkable. Telemetry stroke with [facility] completed per protocol; TPA not recommended as symptoms symptoms rapidly improving. Discussed with Dr. Alexa Tabor [place] [facility] [place] and no further stroke workup recommended at this time. Ductal he also did not recommend transfer to [facility]. Differentials include conversion disorder, migraine, stress/anxiety. - Constitutional Vitals: Temp Pulse Resp BP Pulse Ox 98.8 F 92 18 135/71 95 01/03/18 12:37 01/03/18 13:04 01/03/18 13:04 01/03/18 13:04 01/03/18 12:37 General appearance: Present: A&O X 3 - Head Head exam: Present: atraumatic, normocephalic - Eye Eye exam: Present: PERRL, conjuntiva pink, sclera anicteric Pupils: Present: PERRL - Neck Neck exam general surgery: Present: supple, trachea midline. Absent: lymphadenopathy - Respiratory Respiratory exam: Present: CTAB. Absent: accessory muscle use, rales, rhonchi, wheezes - Cardiovascular Cardiovascular exam: Present: RRR, +S1, +S2. Absent: diastolic murmur, gallop, rubs, systolic murmur - GI/Abdominal GI/Abdominal exam: Present: normal bowel sounds, soft, no peritoneal signs. Absent: distended, tenderness - Extremities Exam Extremities exam: Present: warm, radial pulses palpable and symmetrical. Absent : calf tenderness, cyanotic, pedal edema - Neurological Exam Neurological exam: Present: CN II-XII intact, oriented X3, no focal deficits, speech deficit. Absent: strengths equal and symetr throughout (Left upper and lower extremity weakness), pronater drift, facial droop - Skin Skin exam: Present: dry, intact Internal Medicine: Result - Labs CBC & Chem 7: 01/03/18 13:06 01/03/18 06:47 Labs: Short CBC 01/03/18 Range/Units 13:06 WBC 7.3 (4.3-11.1) K/mcL Hgb 13.5 (11.5-15.4) g/dL Hct 42.0 (35.3-44.9) % Plt Count 247 (140-400) K/mcL BMP 01/03/18 06:47 Sodium 139 Potassium 3.9 Chloride 110 H Carbon Dioxide 23 BUN 10 Creatinine 0.69 Glucose 109 H Calcium 8.4 L Cardiac Enzymes 01/03/18 01/03/18 Range/Units 06:47 12:35 Troponin I < 0.03 < 0.03 (< 0.04) ng/mL - ABG Interpretation ABG results: PT/INR, D-dimer PT 23.6 Seconds (9.4-12.1) H 01/03/18 13:06 - Impressions Impressions Head CT 01/03/18 12:34 IMPRESSION: No acute intracranial process identified. D/ / Maurice Hairston MD / Maurice Hairston MD Interpreting Provider: Maurice Hairston MD Consult Discharge Plan - Plan Referrals: Maurisio Ward MD [Primary Care Provider] -
[2018-01-03] MEDS ORDERED: *HR* LORazepam 1 MG TABLET PO ONE (16:11)
[2018-01-03] MEDS ORDERED: Warfarin perPT PO PRN (18:00)
[2018-01-03] MEDS ORDERED: *HR* Warfarin 3 MG TABLET PO SCH (18:00)
[2018-01-03] MEDS ORDERED: Melatonin 3 MG TABLET PO SCH (21:00)
[2018-01-03] MEDS ORDERED: Insulin DETEMIR 100 UNIT/ML X5UNITS SQ SCH (21:00)
[2018-01-03] MEDS ORDERED: *HR* LORazepam 0.5 MG TABLET PO SCH (21:00)
[2018-01-03] MEDS ORDERED: Insulin LISPRO 300 UNITS/3 ML VIAL SQ SCH (21:00)
--- NOTE | 2018-01-04 06:39 | Electrocardiograph Report ---
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
[2018-01-04 07:32] VITALS: BP 100/63
[2018-01-04] MEDS: Budesonide/Formoterol 160/4.5 MDI IH SCH (07:37)
[2018-01-04] MEDS: Tiotropium 18 MCG inhalation IH SCH (07:38)
[2018-01-04 07:41] LABS: INR 1.7
[2018-01-04] MEDS ORDERED: Albuterol 2.5 MG/3 ML NEBULIZER IH PRN (07:59)
[2018-01-04] MEDS: Furosemide 40 MG TABLET PO SCH (08:46)
[2018-01-04] MEDS: Famotidine 20 MG TABLET PO SCH (08:46)
[2018-01-04] MEDS: Diclofenac Sodium 75 MG TABLET PO SCH (08:46)
[2018-01-04] MEDS: Topiramate 25 MG TABLET PO SCH (08:46)
[2018-01-04] MEDS: hydrOXYzine pamoate 25 MG CAPSULE PO SCH (08:46)
[2018-01-04] MEDS: Gabapentin 400 MG CAPSULE PO SCH (08:46)
[2018-01-04] MEDS: FLUoxetine 20 MG CAPSULE PO SCH (08:47)
[2018-01-04] MEDS: Aspirin 81 MG TAB.CHEW PO SCH (08:47)
[2018-01-04] MEDS: Metoprolol XL (24 HR) Succ 25 MG TAB.ER.24H PO SCH (08:47)
[2018-01-04] MEDS: Insulin LISPRO 300 UNITS/3 ML VIAL SQ SCH (08:49)
--- NOTE | 2018-01-04 09:49 | Discharge Summary ---
Orders not resulted at time of discharge: Pending orders 01/04/18 09:07 CT head/brain wo con [CT] Routine Date of Encounter: 01/04/18 Time of Encounter: 09:46 - Discharge Diagnosis (1) CVA (cerebral vascular accident) Priority: Primary Status: Acute Comments: per hx with residual left upper and lower extremity weakness. Was found to have slurred speech while inpatient 01/03/18 at 12:30pm; last known well 11 AM. Blood glucose 120, stat head CT non-acute. Patient was evaluated and case discussed with Dr. Tabor at [facility] via telemetry stroke; TPA not recommended as symptoms rapidly improved. No further neurological workup or transfer to tertiary hospital recommended as Neurology did not feel symptoms were consistent with CVA. Slurred speech possibly secondary to conversion disorder, migraine, stress/anxiety. Continue home ASA, warfarin, statin, BB Qualifiers: CVA mechanism: unspecified Qualified Code(s): I63.9 - Cerebral infarction, unspecified (2) Conversion disorder Priority: Primary Status: Acute Comments: Suspected with waxing/waning CVA symptoms. Per chart review, patient has had recurrent episodes of slurred speech and increased left upper/lower extremity weakness. Has had extensive neurological workup which has essentially been unremarkable (unable to have MRI due to bladder stimulator). Most recently evaluated by [facility] Neurologist via telestroke on 01/03/18 who felt symptoms could possibly secondary to migraine and/or conversion disorder. Patient reported increased stress/anxiety at home with youngest son. Patient also reported having similar episodes at home during times of increased stress. Cont home lorazepam, hydroxyzine, BuSpar. Recommend follow-up with outpatient psychiatrist and/or PCP. (3) Migraine Priority: Primary Status: Acute Comments: per hx. Presented with headache on arrival; suspect this could be contributing to slurred speech and waxing/waning CVA symptoms. Received one-time dose Imitrex during this hospitalization. Declined Rx for Imitrex at discharge. Continue home Topamax (diclofenac stopped due to increased risk of serious cardiovascular thrombotic events, including myocardial infarction ([place]) and stroke). Qualifiers: Migraine type: without aura Intractability: not intractable Qualified Code(s): G43.009 - Migraine without aura, not intractable, without status migrainosus (4) Afib Priority: Secondary Status: Chronic Comments: hx PAF. EKG with sinus rhythm. Continue home BB, Coumadin. Qualifiers: Atrial fibrillation type: paroxysmal Qualified Code(s): I48.0 - Paroxysmal atrial fibrillation (5) CAD (coronary artery disease) Priority: Secondary Status: Chronic Comments: per hx. 11/2017 [facility] with nonobstructive CAD. Continue home ASA, BB, Coumadin, statin. Qualifiers: Coronary Disease-Associated Artery/Lesion type: [place] artery [place] vs. transplanted heart: [place] heart Associated angina: without angina Qualified Code(s): I25.10 - Atherosclerotic heart disease of [place] coronary artery without angina pectoris (6) HTN (hypertension) Priority: Secondary Status: Chronic Qualifiers: Hypertension type: essential hypertension Qualified Code(s): I10 - Essential (primary) hypertension Hospital course: Ms. Strong is a 52 year old female - Time Spent with Patient Total time spent providing and/or coordinating discharge services: - Discharge Medications Home Medications: Budesonide/Formoterol 160/4.5 [Symbicort 160/4.5] 2 puff IH BIDR 12/30/16 [ History] Insulin ASPART [NovoLOG] 2 - 10 unit SQ TIDWM 12/30/16 [History] Insulin Glargine,Hum.rec.anlog [Lantus Solostar] 35 unit SQ HS 12/30/16 [History ] Nitroglycerin [Nitrostat] 0.4 mg SL Q5M PRN 12/30/16 [History] Ranitidine HCl [Acid Carousel Attendant] 150 mg PO BID 12/30/16 [History] Tiotropium [Spiriva] 18 mcg IH DAILY 12/30/16 [History] Calcium Polycarbophil [Fibercon] 625 mg PO DAILY 03/15/17 [History] Oxygen 2 l NS HS 03/15/17 [History] LORazepam [Ativan] 0.5 mg PO HS #30 tablet 06/13/17 [Rx] hydrOXYzine pamoate [HydrOXYzine Pamoate] 50 mg PO TID #90 06/20/17 [Rx] Atorvastatin [Lipitor] 40 mg PO HS 07/03/17 [History] Quetiapine Fumarate [Seroquel] 300 mg PO HS 07/20/17 [History] Aspirin 81 mg PO DAILY #30 tab.chew 07/22/17 [Rx] Buspirone HCl [Buspar] 10 mg PO BID 09/14/17 [History] Furosemide [Lasix] 20 - 40 mg PO DAILY 10/13/17 [History] Ipratropium/Albuterol Neb [Duoneb] 3 ml IH [id number] PRN 10/13/17 [History] Potassium Chloride [K-Tab ER] 10 meq PO DAILY 10/13/17 [History] Prochlorperazine Maleate [Compazine] 10 mg PO Q8HR PRN 10/13/17 [History] Metoprolol XL (24 HR) Succ [Toprol Xl] 25 mg PO BID tab.er.24h 10/20/17 [Rx] Melatonin 10 mg PO HS 10/31/17 [History] Warfarin [Coumadin] 3 mg PO QPM 10/31/17 [History] Verapamil ER (24 HR) [[place]an SR] 120 mg PO HS #30 tablet.er 12/06/17 [Rx] Acetaminophen [Tylenol] 650 mg PO Q6HR PRN 01/02/18 [History] Albuterol Neb [Proventil Neb] 2.5 mg IH QID PRN 01/02/18 [History] FLUoxetine HCl [Prozac] 80 mg PO DAILY 01/02/18 [History] Gabapentin [Neurontin] 400 mg PO TID 01/02/18 [History] Meclizine HCl [Verticalm] 25 mg PO BID PRN 01/02/18 [History] Topiramate [Topamax] 25 mg PO BID 01/02/18 [History] Allergies/Adverse Reactions: 3 Allergy/AdvReac Type Severity Reaction Status Date / Time baclofen Allergy Itching Verified 12/02/17 13:02 ciprofloxacin [From Cipro] Allergy Hives Verified 12/02/17 13:02 latex Allergy Rash Verified 12/02/17 13:02 Penicillins Allergy Hives Verified 12/02/17 13:02 prednisone Allergy Itching Verified 12/02/17 13:02 sulfamethoxazole Allergy Hives Verified 12/02/17 13:02 [From Bactrim] trimethoprim [From Bactrim] Allergy Hives Verified 12/02/17 13:02 cefdinir AdvReac Vomiting Verified 12/02/17 13:02 Oxycodone AdvReac Hallucinati Verified 12/02/17 13:02 ng Date of admission: 01/03/18 00:56 Primary care physician: Maurisio Ward MD Discharging clinician: Vibha Hazel Anticipated date of discharge: 01/04/18 - Constitutional Vitals: Temp Pulse Resp BP Pulse Ox 97.7 F 75 18 100/63 95 01/04/18 07:25 01/04/18 07:25 01/04/18 07:39 01/04/18 07:25 01/04/18 07:39 General appearance: Present: A&O X 3 - Patient Status Disposition: Home, Self-Care Condition: Good Functional capacity at discharge: independent ambulation Overall status at discharge: patient is back to baseline - Discharge Instructions Follow Up With: Maurisio Ward MD [Primary Care Provider] - (Please call for follow-up appt within 1-2 weeks.) Barb Guzman MD [Partnered Physician] - (These call for follow-up appointment within 1-2 weeks) Additional Instructions: Resume routine INR checks as previously scheduled. - Diet and Activity Activity: increase activity as tolerated Diet: diabetic diet, low fat, low cholesterol
== END 2018-01-04 11:45 | disposition home or self-care (01) ==
LOC: 2SOUTHHOLD 19:01 → EMEROO 19:01 → 2SOUTHHOLD 23:30 → 2ANU 01-03 19:27
PROVIDERS: ADMIT Internal Medicine Hematology & Oncology; ATTEND Internal Medicine Hematology & Oncology

== ENCOUNTER 2018-02-13 20:23 | Observation (INO) ==
[2018-02-13] MEDS ORDERED: Isovue-370 500 ML INFUS..BTL IV ONE (21:32)
--- NOTE | 2018-02-13 21:35 | Emergency Department Note ---
Disposition Clinical Impression: Shortness of breath, Tachycardia Chest pain Qualifiers: Chest pain type: unspecified Qualified Code(s): R07.9 - Chest pain, unspecified Disposition: Admitted As Inpatient Condition: Fair Time of Disposition: 23:02 General Adult HPI - General Chief complaint: ED Chest Pain Stated complaint: CP - Afib Time Seen by Provider: 02/13/18 21:22 Source: patient, family Limitations: no limitations Nursing Notes Reviewed: Yes Vital Signs Reviewed: Yes - History of Present Illness HPI Narrative: Patient is a 52-year-old female that presents emergency Department with chest pain and shortness of breath. Patient states that she has been having mild chest pain for approximately one week this evening the chest pain got significantly worse and she became very short of breath. She states that her pain is worse with exertion. She states that her chest pain radiates into her back. Describes the chest pain as a pressure squeezing like pain. Rates as an 8 out of 10. Patient does state that she has taken some nitroglycerin as provided minimal relief. Patient does state that she has had 3 heart attacks in the past and this pain feels similar to that. Patient denies any history of blood clots. Pain Scale: 8 - Related Data Home Medications Medication Instructions Recorded Confirmed Budesonide/Formoterol 160/4.5 2 puff IH BIDR 12/30/16 02/13/18 [Symbicort 160/4.5] Insulin ASPART [NovoLOG] 2 - 10 unit SQ TIDWM 12/30/16 02/13/18 Insulin Glargine,Hum.rec.anlog 36 unit SQ HS 12/30/16 02/13/18 [Lantus Solostar] Nitroglycerin [Nitrostat] 0.4 mg SL Q5M PRN 12/30/16 02/13/18 Tiotropium [Spiriva] 18 mcg IH DAILY 12/30/16 02/13/18 Calcium Polycarbophil [Fibercon] 625 mg PO DAILY 03/15/17 02/13/18 Oxygen 2 l NS HS 03/15/17 02/13/18 Atorvastatin [Lipitor] 40 mg PO HS 07/03/17 02/13/18 Quetiapine Fumarate [Seroquel] 300 mg PO HS 07/20/17 02/13/18 Buspirone HCl [Buspar] 15 mg PO BID 09/14/17 02/13/18 Furosemide [Lasix] 40 mg PO DAILY PRN 10/13/17 02/13/18 Ipratropium/Albuterol Neb [Duoneb] 3 ml IH [id number] PRN 10/13/17 02/13/18 Potassium Chloride [K-Tab ER] 10 meq PO DAILY 10/13/17 02/13/18 Prochlorperazine Maleate 10 mg PO Q8HR PRN 10/13/17 02/13/18 [Compazine] Melatonin 10 mg PO HS 10/31/17 02/13/18 Warfarin [Coumadin] 3 mg PO DAILY 10/31/17 02/13/18 Acetaminophen [Tylenol] 650 mg PO Q6HR PRN 01/02/18 02/13/18 Albuterol Neb [Proventil Neb] 2.5 mg IH QID PRN 01/02/18 02/13/18 FLUoxetine HCl [Prozac] 80 mg PO DAILY 01/02/18 02/13/18 Gabapentin [Neurontin] 400 mg PO TID 01/02/18 02/13/18 Meclizine HCl [Verticalm] 25 mg PO BID PRN 01/02/18 02/13/18 Topiramate [Topamax] 25 mg PO BID 01/02/18 02/13/18 Metoprolol [Lopressor] 25 mg PO BID 01/15/18 02/13/18 Naproxen 500 mg PO BID 01/15/18 02/13/18 Loratadine [Claritin] 10 mg PO DAILY 02/13/18 02/13/18 Pantoprazole Sodium [Protonix] 40 mg PO DAILY 02/13/18 02/13/18 Rizatriptan Benzoate [Maxalt] 10 mg PO DAILY PRN 02/13/18 02/13/18 Previous Rx's Medication Instructions Recorded LORazepam [Ativan] 0.5 mg PO HS #30 tablet 06/13/17 hydrOXYzine pamoate [HydrOXYzine 50 mg PO TID #90 06/20/17 Pamoate] Aspirin 81 mg PO DAILY #30 tab.chew 07/22/17 Verapamil ER (24 HR) [Calan SR] 120 mg PO HS #30 tablet.er 12/06/17 Omeprazole [PriLOSEC] 20 mg PO BIDAC #20 cap 01/06/18 Allergies Allergy/AdvReac Type Severity Reaction Status Date / Time baclofen Allergy Itching Verified 02/13/18 20:44 ciprofloxacin [From Cipro] Allergy Hives Verified 02/13/18 20:44 latex Allergy Rash Verified 02/13/18 20:44 Penicillins Allergy Hives Verified 02/13/18 20:44 prednisone Allergy Itching Verified 02/13/18 20:44 sulfamethoxazole Allergy Hives Verified 02/13/18 20:44 [From Bactrim] trimethoprim [From Bactrim] Allergy Hives Verified 02/13/18 20:44 cefdinir AdvReac Vomiting Verified 02/13/18 20:44 Oxycodone AdvReac Hallucinati Verified 02/13/18 20:44 ng All systems ED: reviewed and negative except as stated. Cardiovascular: Reports: chest pain Respiratory: Reports: dyspnea Gastrointestinal: Denies: nausea, vomiting Musculoskeletal: Reports: other (Swelling of bilateral lower extremities) Past Medical History - Past Medical History Medical history: Reports: atrial fibrillation, CHF, COPD, coronary artery disease, CVA, diabetes, GERD, hyperlipidemia, hypertension, myocardial infarction, seizures, TIA Surgical history: Reports: angioplasty/stent, appendectomy, cholecystectomy, knee replacement, orthopedic, other Psychiatric history: Reports: anxiety, bipolar, depression, prior suicide attempt, previous psychiatric hospitalization 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: bilateral 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 - Social History Smoking Status: Current every day smoker Smokeless Tobacco Status: No Alcohol use: Reports: none Drug use: Reports: none Physical Exam - General Limitations: no limitations General appearance: alert, in no apparent distress - Head Head exam: atraumatic, normocephalic - Eye Eye exam: Present: normal appearance, EOMI - Neck Neck exam: Present: normal inspection, full ROM, trachea midline - Respiratory Respiratory exam: Present: wheezes (Wheezes bilaterally) - Cardiovascular Cardiovascular exam: Present: normal rhythm, tachycardia, normal heart sounds, + S1, +S2 - Abdominal Exam Abdominal exam: Present: soft, Non-Tender, normal bowel sounds - Extremities Exam Extremities exam: Present: normal inspection, full ROM, calf tenderness (On the right.), other (Bilateral lower extremity edema.) - Neurological Exam Neurological exam: Present: alert, oriented X3 - Psychiatric Psychiatric exam: Present: normal affect, normal mood - Skin Skin exam: Present: warm, dry, intact Course Vital Signs Temperature 98.4 F 02/13/18 20:44 Pulse Rate 110 02/13/18 20:44 Respiratory Rate 16 02/13/18 20:44 Blood Pressure 174/107 02/13/18 20:44 O2 Sat by Pulse Oximetry 93 02/13/18 20:44 Temperature 98.6 F 02/14/18 03:42 Pulse Rate 86 02/14/18 03:42 Respiratory Rate 15 02/14/18 03:42 Blood Pressure 99/59 02/14/18 03:42 O2 Sat by Pulse Oximetry 90 02/14/18 03:42 Oxygen Delivery Oxygen Delivery Room Air Medical Decision Making - MDM Narrative Medical decision making narrative: Due to the patient presenting with chest pain shortness of breath we will obtain a CBC, BMP, troponin, chest x-ray and EKG. We will also obtain a CT of the chest to evaluate for possible pulmonary embolus versus thoracic aortic dissection. A troponin was negative. Chest x-ray was clear EKG showed a sinus tachycardia. CTA of the chest was negative for pulmonary embolus or thoracic aortic dissection. Remainder of her laboratory testing was unremarkable. However based on the patient's past medical history and presenting symptoms I feel that is necessary to admit the patient to the hospital for further evaluation and management. On spoke with the admitting hospitalist and he has accepted the patient to their service. The patient will be admitted to the hospital for further evaluation and management at this time. - Medical Records Medical records reviewed: Yes I reviewed the patient's medical records. - Lab Data Lab results reviewed: Yes I reviewed the patient's lab results. Result diagrams: 02/14/18 02:09 02/14/18 02:09 Lab Results 02/13/18 02/13/18 02/13/18 Range/Units 21:28 21:28 21:28 WBC 8.2 (4.3-11.1) K/mcL RBC 4.88 (3.82-4.97) M/mcL Hgb 12.7 (11.5-15.4) g/dL Hct 39.6 (35.3-44.9) % MCV 81.1 L (83.0-100.0) fL MCH 26.0 L (28.0-33.3) pg MCHC 32.1 (31.6-35.5) g/dL RDW 14.6 H (11.5-14.5) % Plt Count 272 (140-400) K/mcL MPV 9.4 (9.4-12.4) fL Immature Gran % 0.9 (0-4) % Seg Neutrophils % 58.5 % Lymphocytes % 30.3 % Monocytes % 7.6 % Eosinophils % 2.2 % Basophils % 0.5 % Neutrophils # 4.8 (1.6-8.9) K/mcL Lymphocytes # 2.5 (0.6-4.6) K/mcL Monocytes # 0.6 (0.0-1.3) K/mcL Eosinophils # 0.2 (0.0-0.6) K/mcL Basophils # 0.0 (0.0-0.2) K/mcL PT 27.9 H (9.4-12.1) Seconds INR 2.5 APTT 50.8 H (26.0-36.0) Seconds Sodium 138 (136-145) mEq/L Potassium 3.7 (3.5-5.1) mEq/L Chloride 106 (98-107) mEq/L Carbon Dioxide 24 (23-29) mEq/L BUN 6 (6-20) mg/dL Creatinine 0.61 (0.60-1.20) mg/dL Est GFR ( Amer) > 60 (> 60) Est GFR (Non-Af Amer) > 60 (> 60) BUN/Creatinine Ratio 10 (6-26) Glucose 182 H (70-105) mg/dL Calculated Osmolality 288 (280-300) Calcium 9.1 (8.6-10.3) mg/dL Troponin I < 0.03 (< 0.04) ng/mL B-Natriuretic Peptide (Less than 100) pg/mL 02/13/18 Range/Units 21:28 WBC (4.3-11.1) K/mcL RBC (3.82-4.97) M/mcL Hgb (11.5-15.4) g/dL Hct (35.3-44.9) % MCV (83.0-100.0) fL MCH (28.0-33.3) pg MCHC (31.6-35.5) g/dL RDW (11.5-14.5) % Plt Count (140-400) K/mcL MPV (9.4-12.4) fL Immature Gran % (0-4) % Seg Neutrophils % % Lymphocytes % % Monocytes % % Eosinophils % % Basophils % % Neutrophils # (1.6-8.9) K/mcL Lymphocytes # (0.6-4.6) K/mcL Monocytes # (0.0-1.3) K/mcL Eosinophils # (0.0-0.6) K/mcL Basophils # (0.0-0.2) K/mcL PT (9.4-12.1) Seconds INR APTT (26.0-36.0) Seconds Sodium (136-145) mEq/L Potassium (3.5-5.1) mEq/L Chloride (98-107) mEq/L Carbon Dioxide (23-29) mEq/L BUN (6-20) mg/dL Creatinine (0.60-1.20) mg/dL Est GFR ( Amer) (> 60) Est GFR (Non-Af Amer) (> 60) BUN/Creatinine Ratio (6-26) Glucose (70-105) mg/dL Calculated Osmolality (280-300) Calcium (8.6-10.3) mg/dL Troponin I (< 0.04) ng/mL B-Natriuretic Peptide 71 (Less than 100) pg/mL - Radiology Data Radiology results reviewed: Yes I reviewed the patient's radiology results. Chest X-Ray 02/13/18 20:49 IMPRESSION: No acute cardiopulmonary disease. D/ / John Rhoades MD / John Rhoades MD Interpreting Provider: John Rhoades MD Chest CTA 02/13/18 21:32 IMPRESSION: No evidence of pulmonary embolism or acute pulmonary abnormality. D/ / Derick Rodriges / Derick Rodriges Interpreting Provider: Derick Rodriges - EKG Data EKG #1 EKG attestation: Yes I reviewed and interpreted this EKG. EKG results narrative: EKG shows sinus tachycardia at a rate of 150 bpm, NE interval of 240, QRS duration of 142, QTC of 437 with a normal axis. This is compared to previous EKG on 02/09/18 which showed a sinus rhythm. There is a bundle branch block present on both EKGs. Attestation Statement - Attestation Attestation: I examined this patient and my medical decision-making was reviewed with the Resident Physician. I agree with the documented findings, disposition and treatment plan as described except to the extent set forth below. Findings consistent with chest pain. Nitroglycerin, aspirin, admitted for further management of chest pain cardiac consultation.
[2018-02-13 21:40] LABS: Basophils % 0.5 %; Eosinophils # 0.2 K/mcL (0.0-0.6); Eosinophils % 2.2 %; Hematocrit 39.6 % (35.3-44.9); Hemoglobin 12.7 g/dL (11.5-15.4); Immature Granulocytes % 0.9 % (0-4); Lymphocytes # 2.5 K/mcL (0.6-4.6); Lymphocytes % 30.3 %; Mean Corpuscular HGB Conc 32.1 g/dL (31.6-35.5); Mean Corpuscular Volume 81.1 fL (83.0-100.0); Mean Platelet Volume 9.4 fL (9.4-12.4); Monocytes # 0.6 K/mcL (0.0-1.3); Monocytes % 7.6 %; Neutrophils # 4.8 K/mcL (1.6-8.9); Platelet Count 272 K/mcL (140-400); Red Blood Count 4.88 M/mcL (3.82-4.97); Red Cell Distribution Width 14.6 % (11.5-14.5); Segmented Neutrophils % 58.5 %
[2018-02-13 22:00] LABS: BUN/Creatinine Ratio 10 (6-26); Blood Urea Nitrogen 6 mg/dL (6-20); Calcium 9.1 mg/dL (8.6-10.3); Carbon Dioxide 24 mEq/L (23-29); Chloride 106 mEq/L (98-107); Glucose 182 mg/dL (70-105); Osmolality,Calculated 288 (280-300); Potassium 3.7 mEq/L (3.5-5.1); Sodium 138 mEq/L (136-145); Troponin I < 0.03 ng/mL (< 0.04); eGFR For African Americans > 60 (> 60); eGFR For Non-African Americans > 60 (> 60)
[2018-02-13] MEDS ORDERED: Aspirin 81 MG TAB.CHEW PO STA ×2 (22:17→23:38)
[2018-02-13] MEDS: Nitroglycerin 0.4 MG TAB.SUBL SL PRN ×3 (22:27→22:52)
[2018-02-13 22:34] LABS: INR 2.5; Prothrombin Time 27.9 Seconds (9.4-12.1)
[2018-02-13 22:37] LABS: Activated Partial Thrombo Time 50.8 Seconds (26.0-36.0)
[2018-02-13] MEDS ORDERED: Acetaminophen 325 MG TABLET PO ONE (22:48)
[2018-02-13] MEDS ORDERED: Aspirin 81 MG TAB.CHEW ONE (23:39)
[2018-02-14] MEDS ORDERED: Acetaminophen 325 MG TABLET PO PRN ×2 (01:20→17:59)
[2018-02-14] MEDS ORDERED: Naloxone 0.4 MG/ML INJ IVP PRN (01:20)
[2018-02-14] MEDS ORDERED: Ipratropium/Albuterol Neb 3 ML IH PRN (01:27)
[2018-02-14] MEDS ORDERED: D5% in Water 1,000 ML IVC PRN (01:32)
[2018-02-14] MEDS ORDERED: *HR* Dextrose 50 % in Water (Syg) 50 ML SYRINGE IVP PRN (01:32)
[2018-02-14] MEDS ORDERED: Dextrose Gel 15 GM/37.5 ML TUBE PO PRN ×2 (01:32)
--- NOTE | 2018-02-14 01:39 | Internal Med History&Physical ---
Date of Encounter: 02/14/18 Time of Encounter: 01:38 Internal Medicine - H&P: HPI Chief complaint: Chest pain Admitted From: Emergency Dept Plans for Post Hospital Care: Home History of present illness: Ms. Strong is a 52 year old female with h/o- CAD/stent, HTN, DM, presents with c/ o- chest pain. Patient reports 1- week h/o- intermittent retrosternal chest pain , squeezing, moderate-severe in intensity, radiating to her back and shoulders, aggravated with exertion, associated with palpitations, shortness of breath and dizziness. She recently underwent LHC showing 1 vessel disease with patent stent. Past Med Surg Social Fam HX - Past Medical History Source: patient, old records reviewed Medical history: atrial fibrillation, CHF, COPD, coronary artery disease, CVA, diabetes, GERD, hyperlipidemia, hypertension, myocardial infarction, seizures, TIA Psychiatric history: anxiety, bipolar, depression, prior suicide attempt, previous psychiatric hospitalization - Past Surgical History Surgical History: angioplasty/stent, appendectomy, cholecystectomy, herniorrhaphy, knee replacement (B/L), orthopedic, other (back surgeries) - Social History Smoking Status: Current every day smoker Packs per day: 1 pack Smokeless Tobacco Status: No Alcohol use: none Drug use: none Occupational status: disabled Current living situation: Home, With Family Activity Level: Independent ambulation Recent Out of Country Travel Within the Last 8 Weeks: No Exposure or Possible Exposure to Illness During Travel: No - Family History Father History Unknown: Yes Adopted: [place] I: Anderson Wolf Family Member Ethnicity: Non- Living Status: Cause of : Car wreck Sister Family Member Ethnicity: Non- Living Status: Still Living Grandfather Family Member Ethnicity: Non- Living Status: Hx Family Cardiac Disorders: Yes (MA, CAD) Mother Adopted: [place] I: Ivon Elliott Family Member Ethnicity: Non- Living Status: Age at : 56 Cause of : CHF Hx Family Cardiac Disorders: Yes Hx Family Respiratory Disorders: Yes (COPD) Hx Family Cancer: No Hx Family GI Disorders: No Hx Family Endocrine Disorder: No Hx Family Neuromuscular Disorders: No Hx Family Neurologic Disorders: No Hx Family HEENT Disorders: No Hx Family Autoimmune Disorders: No Internal Medicine - H&P: Meds Budesonide/Formoterol 160/4.5 [Symbicort 160/4.5] 2 puff IH BIDR 12/30/16 [ History] Insulin ASPART [NovoLOG] 2 - 10 unit SQ TIDWM 12/30/16 [History] Insulin Glargine,Hum.rec.anlog [Lantus Solostar] 36 unit SQ HS 12/30/16 [History ] Nitroglycerin [Nitrostat] 0.4 mg SL Q5M PRN 12/30/16 [History] Tiotropium [Spiriva] 18 mcg IH DAILY 12/30/16 [History] Calcium Polycarbophil [Fibercon] 625 mg PO DAILY 03/15/17 [History] Oxygen 2 l NS HS 03/15/17 [History] LORazepam [Ativan] 0.5 mg PO HS #30 tablet 06/13/17 [Rx] hydrOXYzine pamoate [HydrOXYzine Pamoate] 50 mg PO TID #90 06/20/17 [Rx] Atorvastatin [Lipitor] 40 mg PO HS 07/03/17 [History] Quetiapine Fumarate [Seroquel] 300 mg PO HS 07/20/17 [History] Aspirin 81 mg PO DAILY #30 tab.chew 07/22/17 [Rx] Buspirone HCl [Buspar] 15 mg PO BID 09/14/17 [History] Furosemide [Lasix] 40 mg PO DAILY PRN 10/13/17 [History] Ipratropium/Albuterol Neb [Duoneb] 3 ml IH [id number] PRN 10/13/17 [History] Potassium Chloride [K-Tab ER] 10 meq PO DAILY 10/13/17 [History] Prochlorperazine Maleate [Compazine] 10 mg PO Q8HR PRN 10/13/17 [History] Melatonin 10 mg PO HS 10/31/17 [History] Warfarin [Coumadin] 3 mg PO DAILY 10/31/17 [History] Verapamil ER (24 HR) [Calan SR] 120 mg PO HS #30 tablet.er 12/06/17 [Rx] Acetaminophen [Tylenol] 650 mg PO Q6HR PRN 01/02/18 [History] Albuterol Neb [Proventil Neb] 2.5 mg IH QID PRN 01/02/18 [History] FLUoxetine HCl [Prozac] 80 mg PO DAILY 01/02/18 [History] Gabapentin [Neurontin] 400 mg PO TID 01/02/18 [History] Meclizine HCl [Verticalm] 25 mg PO BID PRN 01/02/18 [History] Topiramate [Topamax] 25 mg PO BID 01/02/18 [History] Omeprazole [PriLOSEC] 20 mg PO BIDAC #20 cap 01/06/18 [Rx] Metoprolol [Lopressor] 25 mg PO BID 01/15/18 [History] Naproxen 500 mg PO BID 01/15/18 [History] Loratadine [Claritin] 10 mg PO DAILY 02/13/18 [History] Pantoprazole Sodium [Protonix] 40 mg PO DAILY 02/13/18 [History] Rizatriptan Benzoate [Maxalt] 10 mg PO DAILY PRN 02/13/18 [History] 3 Allergy/AdvReac Type Severity Reaction Status Date / Time baclofen Allergy Itching Verified 02/13/18 20:44 ciprofloxacin [From Cipro] Allergy Hives Verified 02/13/18 20:44 latex Allergy Rash Verified 02/13/18 20:44 Penicillins Allergy Hives Verified 02/13/18 20:44 prednisone Allergy Itching Verified 02/13/18 20:44 sulfamethoxazole Allergy Hives Verified 02/13/18 20:44 [From Bactrim] trimethoprim [From Bactrim] Allergy Hives Verified 02/13/18 20:44 cefdinir AdvReac Vomiting Verified 02/13/18 20:44 Oxycodone AdvReac Hallucinati Verified 02/13/18 20:44 ng All Systems PM: A 10-system review of systems was performed and is negative for pertinent findings except as documented above in the HPI. - Constitutional Constitutional: no chills, no fever(s), no night sweats - EENT Eyes: no change in vision, no discharge, no pain, no photophobia Ears: no ear discharge, no ear pain, no tinnitus Nose, mouth and throat: no dysphagia, no nasal discharge, no neck pain, no sore throat - Cardiovascular Cardiovascular ROS IM: chest pain, dyspnea, dyspnea on exertion, lightheadedness , no diaphoresis, no palpitations, no syncope - Respiratory Respiratory: no cough, no dyspnea, no wheezing, no excessive phlegm production - Gastrointestinal Gastrointestinal: no abdominal pain, no diarrhea, no hematemesis, no hematochezia, no melena, no nausea, no vomiting - Genitourinary Genitourinary: no change in urinary stream, no dysuria, no flank pain, no hematuria - Musculoskeletal Musculoskeletal ROS IM: no numbness, no tingling - Integumentary Integumentary IM: no rash, no unusual bruising - Neurological Neurological ROS: no confusion, no convulsions, no focal weakness, no numbness, no tingling, no tremor(s) - Hematologic/Lymphatic Hematologic/Lymphatic: no easy bruising - Constitutional Vitals: Temp Pulse Resp BP Pulse Ox 98.1 F 108 18 153/91 95 02/13/18 23:57 02/13/18 23:57 02/13/18 23:57 02/13/18 23:57 02/13/18 23:57 General appearance: Present: A&O X 3, morbidly obese, answers questions appropriately - Respiratory Respiratory exam: Present: CTAB. Absent: accessory muscle use, rales, rhonchi, wheezes - Cardiovascular Cardiovascular exam: Present: RRR, +S1, +S2. Absent: diastolic murmur, gallop, rubs, systolic murmur - GI/Abdominal GI/Abdominal exam: Present: normal bowel sounds, soft (obese), no peritoneal signs. Absent: distended, tenderness - Extremities Exam Extremities exam: Present: full ROM, pedal edema (trace), warm, radial pulses palpable and symmetrical. Absent: calf tenderness, cyanotic - Neurological Exam Neurological exam: Present: CN II-XII intact, oriented X3, no focal deficits. Absent: pronater drift, facial droop, speech deficit - Skin Skin exam: Present: dry, intact Internal Med - H&P Results - Labs CBC & Chem 7: 02/14/18 02:09 02/14/18 02:09 - EKG Data -: EKG Interpreted by Myself EKG shows normal: sinus rhythm Rate: tachycardia - Assessment and plan (1) Chest pain Current Visit: Yes Status: Acute Assessment and plan: Atypical chest pain. recent LHC in 11/2017 showed 1VD with patent stent; continue Telemetry monitoring with serial Troponins; chest pain could also be from tachycardia, she does have a h/o- paroxysmal atrial fibrillation. continue ASA, beta lizzette, PRN nitroglycerine; may start Imdur if BP tolerates; outpatient Cardiology f/up. Qualifiers: Chest pain type: unspecified Qualified Code(s): R07.9 - Chest pain, unspecified (2) Chronic respiratory failure Current Visit: Yes Status: Chronic Assessment and plan: nocturnal home O2 due to underlying COPD; Qualifiers: Respiratory failure complication: hypoxia Qualified Code(s): J96.11 - Chronic respiratory failure with hypoxia (3) History of CVA (cerebrovascular accident) Current Visit: Yes Status: Chronic (4) Afib Current Visit: Yes Status: Chronic Assessment and plan: continue Telemetry monitoring, beta lizzette and anticoagulation with Coumadin; INR is therapeutic; Qualifiers: Atrial fibrillation type: paroxysmal Qualified Code(s): I48.0 - Paroxysmal atrial fibrillation (5) CAD (coronary artery disease) Current Visit: Yes Status: Chronic Qualifiers: Coronary Disease-Associated Artery/Lesion type: [place] artery [place] vs. transplanted heart: [place] heart Associated angina: without angina Qualified Code(s): I25.10 - Atherosclerotic heart disease of [place] coronary artery without angina pectoris (6) COPD (chronic obstructive pulmonary disease) Current Visit: Yes Status: Chronic Assessment and plan: not in acute exacerbation; continue PRN breathing treatments and supplemental O2 ; Qualifiers: COPD type: unspecified COPD Qualified Code(s): J44.9 - Chronic obstructive pulmonary disease, unspecified (7) Diabetes mellitus type 2 in obese Current Visit: Yes Status: Chronic Assessment and plan: Accucheck blood glucose monitoring with sliding scale insulin; diabetic diet; (8) Morbid obesity with BMI of 40.0-44.9, adult Current Visit: Yes Status: Chronic (9) SNEHA (obstructive sleep apnea) Current Visit: Yes Status: Chronic (10) Tobacco abuse Current Visit: Yes Status: Chronic Assessment and plan: declines Nicotine TD patch; - Time Spent With Patient Total time spent is greater than 50% in coordination of care (as documented) at patient's floor/unit and/or counseling patient:
[2018-02-14] MEDS ORDERED: Insulin DETEMIR 100 UNIT/ML X5UNITS SQ SCH ×2 (01:45→02:00)
[2018-02-14 02:21] LABS: Basophils % 0.6 %; Eosinophils # 0.2 K/mcL (0.0-0.6); Eosinophils % 2.9 %; Hematocrit 37.5 % (35.3-44.9); Hemoglobin 12.2 g/dL (11.5-15.4); Lymphocytes # 2.2 K/mcL (0.6-4.6); Lymphocytes % 31.7 %; Mean Corpuscular HGB Conc 32.5 g/dL (31.6-35.5); Mean Corpuscular Hemoglobin 26.2 pg (28.0-33.3); Mean Corpuscular Volume 80.6 fL (83.0-100.0); Mean Platelet Volume 9.3 fL (9.4-12.4); Monocytes # 0.7 K/mcL (0.0-1.3); Monocytes % 9.4 %; Neutrophils # 3.8 K/mcL (1.6-8.9); Platelet Count 258 K/mcL (140-400); Red Blood Count 4.65 M/mcL (3.82-4.97); Red Cell Distribution Width 14.6 % (11.5-14.5); Segmented Neutrophils % 54.4 %
[2018-02-14] MEDS: Verapamil ER (24 HR) 120 MG TABLET.ER PO SCH ×2 (02:39→20:10)
[2018-02-14] MEDS: *HR* LORazepam 0.5 MG TABLET PO SCH ×2 (02:39→20:09)
[2018-02-14] MEDS: Topiramate 25 MG TABLET PO SCH ×3 (02:39→20:09)
[2018-02-14 02:48] LABS: BUN/Creatinine Ratio 10 (6-26); Blood Urea Nitrogen 6 mg/dL (6-20); Calcium 8.6 mg/dL (8.6-10.3); Carbon Dioxide 22 mEq/L (23-29); Chloride 108 mEq/L (98-107); Chol/HDL Ratio 7.2 (0-4.9); Cholesterol 246 mg/dL (< 200); Glucose 119 mg/dL (70-105); HDL Cholesterol 34 mg/dL (40-59); LDL Cholesterol,Calculated 152 mg/dL (0-99); Osmolality,Calculated 293 (280-300); Potassium 3.7 mEq/L (3.5-5.1); Sodium 142 mEq/L (136-145); Triglycerides 300 mg/dL (< 150); eGFR For African Americans > 60 (> 60); eGFR For Non-African Americans > 60 (> 60)
[2018-02-14] MEDS: Budesonide/Formoterol 160/4.5 MDI IH SCH ×2 (07:24→20:43)
[2018-02-14] MEDS: hydrOXYzine pamoate 25 MG CAPSULE PO SCH ×3 (07:56→20:09)
[2018-02-14] MEDS: Aspirin 81 MG TAB.CHEW PO SCH (07:56)
[2018-02-14] MEDS: Gabapentin 400 MG CAPSULE PO SCH ×3 (07:57→20:08)
[2018-02-14] MEDS: FLUoxetine 20 MG CAPSULE PO SCH (07:57)
[2018-02-14] MEDS: Insulin LISPRO 300 UNITS/3 ML VIAL SQ SCH ×3 (07:59→17:09)
[2018-02-14] MEDS: Insulin DETEMIR 100 UNIT/ML X5UNITS SQ SCH ×2 (08:01→20:55)
[2018-02-14 08:44] LABS: INR 2.1; Prothrombin Time 23.4 Seconds (9.4-12.1)
--- NOTE | 2018-02-14 15:58 | Electrocardiograph Report ---
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
[2018-02-14] MEDS ORDERED: Furosemide 20 MG TABLET PO PRN (17:59)
[2018-02-14] MEDS ORDERED: Albuterol 2.5 MG/3 ML NEBULIZER IH PRN (17:59)
[2018-02-14] MEDS ORDERED: Warfarin perPT PO PRN (18:00)
[2018-02-14] MEDS ORDERED: *HR* Warfarin 3 MG TABLET PO ONE (18:00)
[2018-02-14] MEDS ORDERED: Nitroglycerin 0.4 MG TAB.SUBL SL PRN (18:06)
--- NOTE | 2018-02-14 18:09 | Event Note ---
Date of Encounter: 02/14/18 Time of Encounter: 18:07 52 year old female with multiple cardiac co morbidities presented with chest pain for one week that was intermittent and retrosternal. Is aggrevated with exertion and has palpitations, SOB, and dizziness as well. Recent heart cath 2017 showed 1 vessel disease with patent stent. Nitro in ED relieved her symptoms. She had serial troponin that was negative x3. CTA chest was negative for PE, there was no aortic abnormalities. She was on Imdur in the past but had to stop because of hypotension. VS: Reviewed Labs; reviewed, unremarkable CBC and BMP. INR is therapeutic at 2.1. BNP normal at 71. 1. Chest pain 2. Chronic respiratory failure 3. h/o CVA 4. Atrial fibrillation 5. CAD 6. COPD 7. DM 8. Morbid obesity 9. Tobacco abuse 10. SNEHA - Trial of Imdur at lowest dose and monitor BP. Hold Nitro as patient states she does not need it at this point. - Outpatient cardiology follow-up - Continue Coumadin - Continue cardizem and metoprolol - Prn breathing treatments. - Monitor glucose, ISS, diabetic diet.
[2018-02-14] MEDS ORDERED: Isosorbide MONOnitrate (24 HR) 30 MG TAB.ER.24H PO SCH (20:00)
[2018-02-14] MEDS ORDERED: Insulin LISPRO 300 UNITS/3 ML VIAL SQ SCH (21:00)
[2018-02-14] MEDS ORDERED: NON-FORMULARY MEDICATION 1 EACH EACH (Oxygen [Oxygen] 2 L) NS SCH (21:00)
[2018-02-15 06:46] LABS: Basophils % 0.5 %; Eosinophils # 0.2 K/mcL (0.0-0.6); Eosinophils % 1.9 %; Hematocrit 35.6 % (35.3-44.9); Hemoglobin 11.2 g/dL (11.5-15.4); Lymphocytes # 1.9 K/mcL (0.6-4.6); Mean Corpuscular HGB Conc 31.5 g/dL (31.6-35.5); Mean Corpuscular Volume 82.6 fL (83.0-100.0); Mean Platelet Volume 9.9 fL (9.4-12.4); Monocytes # 0.7 K/mcL (0.0-1.3); Neutrophils # 5.2 K/mcL (1.6-8.9); Platelet Count 271 K/mcL (140-400); Red Blood Count 4.31 M/mcL (3.82-4.97); Red Cell Distribution Width 14.6 % (11.5-14.5); Segmented Neutrophils % 64.6 %
[2018-02-15 06:52] LABS: INR 1.8; Prothrombin Time 19.3 Seconds (9.4-12.1)
[2018-02-15 07:01] LABS: BUN/Creatinine Ratio 19 (6-26); Blood Urea Nitrogen 11 mg/dL (6-20); Calcium 8.6 mg/dL (8.6-10.3); Carbon Dioxide 24 mEq/L (23-29); Chloride 107 mEq/L (98-107); Glucose 145 mg/dL (70-105); Osmolality,Calculated 288 (280-300); Potassium 4.3 mEq/L (3.5-5.1); Sodium 138 mEq/L (136-145); eGFR For African Americans > 60 (> 60); eGFR For Non-African Americans > 60 (> 60)
[2018-02-15 07:46] VITALS: BP 107/65
--- NOTE | 2018-02-15 08:28 | Discharge Summary ---
- NOTES TO OUTPATIENT PROVIDER Notes to Outpatient Provider: Patient agrees to follow-up with primary care physician in 2-3 days. An appointment is being scheduled by sound engineer audio control at time of discharge. - Has scheduled follow-up with Cardiology inn 7 days, patient agrees to keep this appointment. Orders not resulted at time of discharge: Pending orders 02/16/18 04:00 INR/PT [Prothrombin Time INR] [COAG] AM 0400 02/17/18 04:00 INR/PT [Prothrombin Time INR] [COAG] AM 0400 Date of Encounter: 02/15/18 Time of Encounter: 08:23 - Discharge Diagnosis (1) Chest pain Priority: Primary Status: Acute Qualifiers: Chest pain type: unspecified Qualified Code(s): R07.9 - Chest pain, unspecified (2) Diabetes mellitus type 2 in obese Priority: Secondary Status: Chronic (3) Morbid obesity with BMI of 40.0-44.9, adult Priority: Secondary Status: Chronic (4) Afib Priority: Secondary Status: Chronic Qualifiers: Atrial fibrillation type: paroxysmal Qualified Code(s): I48.0 - Paroxysmal atrial fibrillation (5) SNEHA (obstructive sleep apnea) Priority: Secondary Status: Chronic (6) COPD (chronic obstructive pulmonary disease) Priority: Secondary Status: Chronic Qualifiers: COPD type: unspecified COPD Qualified Code(s): J44.9 - Chronic obstructive pulmonary disease, unspecified (7) Tobacco abuse Priority: Secondary Status: Chronic (8) CAD (coronary artery disease) Priority: Secondary Status: Chronic Qualifiers: Coronary Disease-Associated Artery/Lesion type: [place] artery [place] vs. transplanted heart: [place] heart Associated angina: without angina Qualified Code(s): I25.10 - Atherosclerotic heart disease of [place] coronary artery without angina pectoris (9) History of CVA (cerebrovascular accident) Priority: Secondary Status: Chronic (10) Chronic respiratory failure Priority: Secondary Status: Chronic Qualifiers: Respiratory failure complication: hypoxia Qualified Code(s): J96.11 - Chronic respiratory failure with hypoxia Hospital course: Ms. Strong is a 52 year old female with h/o- CAD/stent, HTN, DM, presents with c/ o- chest pain. Patient reports 1- week h/o- intermittent retrosternal chest pain , squeezing, moderate-severe in intensity, radiating to her back and shoulders, aggravated with exertion, associated with palpitations, shortness of breath and dizziness. She recently underwent LHC in 11/2017, showing 1 vessel disease with patent stent. It was noted that chest pain at one time was reproducible but stated sometimes it was not reproducible. She was brought in for observation for atypical chest pain. EKG was unchanged from prior studies. CBC and BMP were normal. A CTA of chest was negative for PE. There were no aortic abnormalities seen on CTA. She was placed on telemetry monitoring and serial troponin. Troponin were negative after 3 samples. Patient tried on Imdur but blood pressure dropped to 93/57 with heart rate normal. Imdur was discontinued. Patient chest pain some-what improved. She had no episodes of SOB, diaphoresis, N/V. She was discharged home in stable condition. She is being scheduled for follow-up with primary care physician in 2-3 days or soonest available appointment. She already has a Cardiology appointment in 7 days and she agrees to keep this appointment. - Time Spent with Patient Total time spent providing and/or coordinating discharge services: - Discharge Medications Home Medications: Budesonide/Formoterol 160/4.5 [Symbicort 160/4.5] 2 puff IH BIDR 12/30/16 [ History] Insulin ASPART [NovoLOG] 2 - 10 unit SQ TIDWM 12/30/16 [History] Insulin Glargine,Hum.rec.anlog [Lantus Solostar] 36 unit SQ HS 12/30/16 [History ] Nitroglycerin [Nitrostat] 0.4 mg SL Q5M PRN 12/30/16 [History] Tiotropium [Spiriva] 18 mcg IH DAILY 12/30/16 [History] Calcium Polycarbophil [Fibercon] 625 mg PO DAILY 03/15/17 [History] Oxygen 2 l NS HS 03/15/17 [History] LORazepam [Ativan] 0.5 mg PO HS #30 tablet 06/13/17 [Rx] hydrOXYzine pamoate [HydrOXYzine Pamoate] 50 mg PO TID #90 06/20/17 [Rx] Atorvastatin [Lipitor] 40 mg PO HS 07/03/17 [History] Quetiapine Fumarate [Seroquel] 300 mg PO HS 07/20/17 [History] Aspirin 81 mg PO DAILY #30 tab.chew 07/22/17 [Rx] Buspirone HCl [Buspar] 15 mg PO BID 09/14/17 [History] Furosemide [Lasix] 40 mg PO DAILY PRN 10/13/17 [History] Ipratropium/Albuterol Neb [Duoneb] 3 ml IH [id number] PRN 10/13/17 [History] Potassium Chloride [K-Tab ER] 10 meq PO DAILY 10/13/17 [History] Prochlorperazine Maleate [Compazine] 10 mg PO Q8HR PRN 10/13/17 [History] Melatonin 10 mg PO HS 10/31/17 [History] Warfarin [Coumadin] 3 mg PO DAILY 10/31/17 [History] Verapamil ER (24 HR) [Calan SR] 120 mg PO HS #30 tablet.er 12/06/17 [Rx] Acetaminophen [Tylenol] 650 mg PO Q6HR PRN 01/02/18 [History] Albuterol Neb [Proventil Neb] 2.5 mg IH QID PRN 01/02/18 [History] FLUoxetine HCl [Prozac] 80 mg PO DAILY 01/02/18 [History] Gabapentin [Neurontin] 400 mg PO TID 01/02/18 [History] Meclizine HCl [Verticalm] 25 mg PO BID PRN 01/02/18 [History] Topiramate [Topamax] 25 mg PO BID 01/02/18 [History] Omeprazole [PriLOSEC] 20 mg PO BIDAC #20 cap 01/06/18 [Rx] Metoprolol [Lopressor] 25 mg PO BID 01/15/18 [History] Naproxen 500 mg PO BID 01/15/18 [History] Loratadine [Claritin] 10 mg PO DAILY 02/13/18 [History] Pantoprazole Sodium [Protonix] 40 mg PO DAILY 02/13/18 [History] Rizatriptan Benzoate [Maxalt] 10 mg PO DAILY PRN 02/13/18 [History] Allergies/Adverse Reactions: 3 Allergy/AdvReac Type Severity Reaction Status Date / Time baclofen Allergy Itching Verified 02/13/18 20:44 ciprofloxacin [From Cipro] Allergy Hives Verified 02/13/18 20:44 latex Allergy Rash Verified 02/13/18 20:44 Penicillins Allergy Hives Verified 02/13/18 20:44 prednisone Allergy Itching Verified 02/13/18 20:44 sulfamethoxazole Allergy Hives Verified 02/13/18 20:44 [From Bactrim] trimethoprim [From Bactrim] Allergy Hives Verified 02/13/18 20:44 cefdinir AdvReac Vomiting Verified 02/13/18 20:44 Oxycodone AdvReac Hallucinati Verified 02/13/18 20:44 ng Date of admission: 02/13/18 23:07 Primary care physician: Maurisio Ward MD Discharging clinician: Madalyn Benson - Constitutional Vitals: Temp Pulse Resp BP Pulse Ox 98.0 F 87 18 107/65 94 02/15/18 07:40 02/15/18 07:40 02/15/18 07:40 02/15/18 07:40 02/15/18 07:40 General appearance: Present: A&O X 3, morbidly obese, answers questions appropriately Exam: - Respiratory Respiratory exam: Present: CTAB. Absent: accessory muscle use, rales, rhonchi, wheezes - Cardiovascular Cardiovascular exam: Present: RRR, +S1, +S2. Absent: diastolic murmur, gallop, rubs, systolic murmur - GI/Abdominal GI/Abdominal exam: Present: normal bowel sounds, soft (obese), no peritoneal signs. Absent: distended, tenderness - Extremities Exam Extremities exam: Present: full ROM, pedal edema (trace), warm, radial pulses palpable and symmetrical. Absent: calf tenderness, cyanotic - Neurological Exam Neurological exam: Present: CN II-XII intact, oriented X3, no focal deficits. Absent: pronater drift, facial droop, speech deficit - Skin Skin exam: Present: dry, intact Reproducible sternal chest pain on one occasion. - Patient Status Disposition: Home, Self-Care Condition: Fair Functional capacity at discharge: independent ambulation Overall status at discharge: patient is back to baseline - Discharge Instructions Follow Up With: Maurisio Ward MD [Primary Care Provider] - - Diet and Activity Activity: increase activity as tolerated Diet: advance to your usual diet
[2018-02-15] MEDS ORDERED: Tiotropium 18 MCG inhalation IH SCH (09:00)
[2018-02-15] MEDS: FLUoxetine 20 MG CAPSULE PO SCH (10:09)
[2018-02-15] MEDS: Aspirin 81 MG TAB.CHEW PO SCH (10:09)
[2018-02-15] MEDS: Gabapentin 400 MG CAPSULE PO SCH (10:09)
[2018-02-15] MEDS: Topiramate 25 MG TABLET PO SCH (10:09)
[2018-02-15] MEDS: hydrOXYzine pamoate 25 MG CAPSULE PO SCH (10:09)
[2018-02-15] MEDS: Insulin LISPRO 300 UNITS/3 ML VIAL SQ SCH (10:10)
[2018-02-15] MEDS: Insulin DETEMIR 100 UNIT/ML X5UNITS SQ SCH (10:12)
[2018-02-15] MEDS: Budesonide/Formoterol 160/4.5 MDI IH SCH (10:13)
[2018-02-15] MEDS ORDERED: *HR* Warfarin 3 MG TABLET PO SCH (18:00)
[2018-02-15] MEDS ORDERED: Melatonin 3 MG TABLET PO SCH (21:00)
== END 2018-02-15 10:48 | disposition home or self-care (01) ==
LOC: EMEROO 20:23 → 3ANU 20:23 → SUATTDRO 23:07 → 3ANU 23:48
PROVIDERS: ADMIT Internal Medicine; ATTEND Student in an Organized Health Care Education/Training Program

== ENCOUNTER 2018-03-28 13:58 | Observation (INO) ==
[2018-03-28] MEDS ORDERED: Nitroglycerin 0.4 MG TAB.SUBL SL ONE (14:10)
[2018-03-28] MEDS ORDERED: Aspirin 325 MG TABLET PO ONE (14:12)
--- NOTE | 2018-03-28 14:13 | Emergency Department Note ---
Disposition Clinical Impression: Chest pain Qualifiers: Chest pain type: unspecified Qualified Code(s): R07.9 - Chest pain, unspecified Disposition: Admitted As Inpatient Condition: Undetermined Referrals: Maurisio Ward MD [Primary Care Provider] - Forms: ED Satisfaction Letter Time of Disposition: 16:01 Chest Pain HPI - General Chief Complaint: ED Chest Pain Stated Complaint: Chest pain Time Seen by Provider: 03/28/18 14:07 Source: patient, EMS Mode of arrival: EMS Limitations: no limitations Vital Signs Reviewed: Yes Nursing Notes Reviewed: Yes - History of Present Illness HPI Narrative: 52-year-old female with history of [place] 2 with one cardiac stent placed in 2006, hypertension, hyperlipidemia, smoker, arrives to the emergency department complaining of left-sided chest pain that radiates into her left axilla that started one day ago. The patient states that she is having episodic chest pain that last one to 2 minutes that is very heavy and expressing a lot of pressure. The patient states it subsides and then it occurs again a few hours later. The patient states this occurred when she was at rest. She denies any exertional symptoms associated with it. The patient denies any other symptoms associated with including dyspnea and nausea or sweating. The patient does admit to some intermittent right lower surety swelling but she states this is not new. The patient denies any hemoptysis, recent immobilizations or surgeries or history of DVT or PE. The patient takes a daily aspirin before got her dose today. She denies any other complaints at this time. The patient states that she had a near syncopal episode at [facility] 3 days ago. - Related Data Home Medications Medication Instructions Recorded Confirmed Budesonide/Formoterol 160/4.5 2 puff IH BIDR 12/30/16 03/28/18 [Symbicort 160/4.5] Insulin ASPART [NovoLOG] 2 - 10 unit SQ TIDWM 12/30/16 03/28/18 Insulin Glargine,Hum.rec.anlog 36 unit SQ HS 12/30/16 03/28/18 [Lantus Solostar] Nitroglycerin [Nitrostat] 0.4 mg SL Q5M PRN 12/30/16 03/28/18 Tiotropium [Spiriva] 18 mcg IH DAILY 12/30/16 03/28/18 Calcium Polycarbophil [Fibercon] 625 mg PO DAILY 03/15/17 03/28/18 Oxygen 2 l NS HS 03/15/17 03/28/18 Atorvastatin [Lipitor] 40 mg PO HS 07/03/17 03/28/18 Quetiapine Fumarate [Seroquel] 300 mg PO HS 07/20/17 03/28/18 Buspirone HCl [Buspar] 15 mg PO BID 09/14/17 03/28/18 Furosemide [Lasix] 40 mg PO DAILY PRN 10/13/17 03/28/18 Ipratropium/Albuterol Neb [Duoneb] 3 ml IH [id number] PRN 10/13/17 03/28/18 Potassium Chloride [K-Tab ER] 10 meq PO DAILY 10/13/17 03/28/18 Prochlorperazine Maleate 10 mg PO Q8HR PRN 10/13/17 03/28/18 [Compazine] Melatonin 10 mg PO HS 10/31/17 03/28/18 Warfarin [Coumadin] 3 mg PO MOTUWETHFRSA 10/31/17 03/28/18 Acetaminophen [Tylenol] 650 mg PO Q6HR PRN 01/02/18 03/28/18 Albuterol Neb [Proventil Neb] 2.5 mg IH QID PRN 01/02/18 03/28/18 FLUoxetine HCl [Prozac] 80 mg PO DAILY 01/02/18 03/28/18 Gabapentin [Neurontin] 400 mg PO TID 01/02/18 03/28/18 Meclizine HCl [Verticalm] 25 mg PO BID PRN 01/02/18 03/28/18 Metoprolol [Lopressor] 25 mg PO BID 01/15/18 03/28/18 Naproxen 500 mg PO BID 01/15/18 03/28/18 Loratadine [Claritin] 10 mg PO DAILY 02/13/18 03/28/18 Pantoprazole Sodium [Protonix] 40 mg PO DAILY 02/13/18 03/28/18 Rizatriptan Benzoate [Maxalt] 10 mg PO DAILY PRN 02/13/18 03/28/18 Tizanidine HCl 2 mg PO DAILY 03/28/18 03/28/18 Topiramate [Topamax] 50 mg PO QAM 03/28/18 03/28/18 Topiramate [Topamax] 100 mg PO QPM 03/28/18 03/28/18 Warfarin [Coumadin] 3.5 mg PO DRUHAM 03/28/18 03/28/18 Previous Rx's Medication Instructions Recorded LORazepam [Ativan] 0.5 mg PO HS #30 tablet 06/13/17 hydrOXYzine pamoate [HydrOXYzine 50 mg PO TID #90 06/20/17 Pamoate] Aspirin 81 mg PO DAILY #30 tab.chew 07/22/17 Verapamil ER (24 HR) [Calan SR] 120 mg PO HS #30 tablet.er 12/06/17 Allergies Allergy/AdvReac Type Severity Reaction Status Date / Time baclofen Allergy Itching Verified 02/13/18 20:44 ciprofloxacin [From Cipro] Allergy Hives Verified 02/13/18 20:44 latex Allergy Rash Verified 02/13/18 20:44 Penicillins Allergy Hives Verified 02/13/18 20:44 prednisone Allergy Itching Verified 02/13/18 20:44 sulfamethoxazole Allergy Hives Verified 02/13/18 20:44 [From Bactrim] trimethoprim [From Bactrim] Allergy Hives Verified 02/13/18 20:44 cefdinir AdvReac Vomiting Verified 02/13/18 20:44 Oxycodone AdvReac Hallucinati Verified 02/13/18 20:44 ng All systems ED: reviewed and negative except as stated. Constitutional: Denies: fever, chills, weakness ENT ED: Denies: congestion Cardiovascular: Reports: chest pain, dyspnea on exertion, syncope. Denies: orthopnea, edema Respiratory: Denies: cough, dyspnea, sputum production Gastrointestinal: Denies: abdominal pain Genitourinary: Denies: urgency Musculoskeletal: Denies: back pain, neck pain Integumentary: Denies: rash Neurological: Denies: headache Chest Pain PMH - Past Medical History Medical history: Reports: arthritis, CHF, hyperlipidemia, hypertension, other Surgical history: Reports: angioplasty/stent, appendectomy, cholecystectomy, knee replacement, orthopedic, other Psychiatric history: Reports: anxiety, bipolar, depression, prior suicide attempt, previous psychiatric hospitalization Prior Cardiac Testing/Procedures: Stenting 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[employer]ER history: Reports: bilateral 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 - Social History Smoking Status: Never smoker Alcohol use: Reports: none Drug use: Reports: none Physical Exam - General Limitations: no limitations General appearance: alert, in no apparent distress - Head Head exam: atraumatic, normocephalic, normal inspection - Eye Eye exam: Present: normal appearance, PERRL, EOMI - ENT ENT exam: normal exam, normal oropharynx, mucous membranes moist - Neck Neck exam: Present: normal inspection, full ROM, trachea midline - Chest Chest inspection: Present: normal inspection, symmetric chest wall rise - Respiratory Respiratory exam: Present: normal lung sounds bilaterally - Cardiovascular Cardiovascular exam: Present: regular rate, normal rhythm, normal heart sounds - Abdominal Exam Abdominal exam: Present: soft, Non-Tender. Absent: tenderness, distention, guarding, rebound, rigidity - Extremities Exam Extremities exam: Present: normal inspection, full ROM. Absent: tenderness, pedal edema - Neurological Exam Neurological exam: Present: alert, oriented X3 - Skin Skin exam: Present: warm, dry, intact, normal color Course Vital Signs Temperature 0 F L 03/28/18 13:59 Pulse Rate 69 03/28/18 13:59 Respiratory Rate 18 03/28/18 13:59 Blood Pressure 129/76 03/28/18 13:59 O2 Sat by Pulse Oximetry 95 03/28/18 13:59 Temperature 0 F L 03/28/18 13:59 Pulse Rate 92 03/28/18 15:05 Respiratory Rate 18 03/28/18 15:05 Blood Pressure 106/68 03/28/18 15:05 O2 Sat by Pulse Oximetry 95 03/28/18 15:05 Oxygen Delivery Oxygen Delivery Room Air Chest Pain - [facility] Narrative Medical decision making narrative: Patient's workup in the emergency department demonstrates no acute process. The patient's troponin is negative. She was given aspirin as well as nitroglycerin. The patient's chest pain is resolved at this time. She states she is feeling much better. Given the patient's past history of coronary artery disease and the patient's pain, we will admit the patient to the hospital for further workup and trending of troponin. The patient also had a d- dimer due to lower extremity swelling. This was negative. We will admit the patient to the hospital at this time. Patient made aware and agrees to plan. No further questions or concerns noted at this time. Accepted by Dr. florez - Lab Data Lab results reviewed: Yes I reviewed the patient's lab results. Result diagrams: 03/28/18 14:18 03/28/18 14:18 Lab Results 03/28/18 03/28/18 03/28/18 Range/Units 14:18 14:18 14:18 WBC 7.3 (4.3-11.1) K/mcL RBC 5.28 H (3.82-4.97) M/mcL Hgb 13.2 (11.5-15.4) g/dL Hct 42.4 (35.3-44.9) % MCV 80.3 L (83.0-100.0) fL MCH 25.0 L (28.0-33.3) pg MCHC 31.1 L (31.6-35.5) g/dL RDW 14.5 (11.5-14.5) % Plt Count 247 (140-400) K/mcL MPV 10.3 (9.4-12.4) fL Immature Gran % 0.7 (0-4) % Seg Neutrophils % 62.8 % Lymphocytes % 27.5 % Monocytes % 7.0 % Eosinophils % 1.6 % Basophils % 0.4 % Neutrophils # 4.6 (1.6-8.9) K/mcL Lymphocytes # 2.0 (0.6-4.6) K/mcL Monocytes # 0.5 (0.0-1.3) K/mcL Eosinophils # 0.1 (0.0-0.6) K/mcL Basophils # 0.0 (0.0-0.2) K/mcL PT 28.1 H (9.4-12.1) Seconds INR 2.6 APTT 52.5 H (26.0-36.0) Seconds D-Dimer < 215 (0-500) ng/mLFEU Sodium 138 (136-145) mEq/L Potassium 3.9 (3.5-5.1) mEq/L Chloride 110 H (98-107) mEq/L Carbon Dioxide 22 L (23-29) mEq/L BUN 8 (6-20) mg/dL Creatinine 0.75 (0.60-1.20) mg/dL Est GFR ( Amer) > 60 (> 60) Est GFR (Non-Af Amer) > 60 (> 60) BUN/Creatinine Ratio 11 (6-26) Glucose 125 H (70-105) mg/dL Calculated Osmolality 286 (280-300) Calcium 8.8 (8.6-10.3) mg/dL Troponin I < 0.03 (< 0.04) ng/mL - Radiology Data Radiology results reviewed: Yes I reviewed the patient's radiology results. Chest X-Ray 03/28/18 14:10 IMPRESSION: No acute cardiopulmonary abnormality. D/ / Derick Rodriges / Derick Rodriges Interpreting Provider: Derick Rodriges - EKG Data EKG attestation: Yes I reviewed and interpreted this EKG. EKG results narrative: Heart rate 69 beats for minute. Left bundle branch block. No ST elevation or ST depression noted. Previous left bundle branch noted on EKG from 02/13/2018. No acute changes noted.
[2018-03-28 14:33] LABS: Basophils % 0.4 %; Eosinophils # 0.1 K/mcL (0.0-0.6); Eosinophils % 1.6 %; Hematocrit 42.4 % (35.3-44.9); Hemoglobin 13.2 g/dL (11.5-15.4); Immature Granulocytes % 0.7 % (0-4); Lymphocytes % 27.5 %; Mean Corpuscular HGB Conc 31.1 g/dL (31.6-35.5); Mean Corpuscular Volume 80.3 fL (83.0-100.0); Mean Platelet Volume 10.3 fL (9.4-12.4); Monocytes # 0.5 K/mcL (0.0-1.3); Neutrophils # 4.6 K/mcL (1.6-8.9); Platelet Count 247 K/mcL (140-400); Red Blood Count 5.28 M/mcL (3.82-4.97); Red Cell Distribution Width 14.5 % (11.5-14.5); Segmented Neutrophils % 62.8 %
[2018-03-28 14:39] LABS: INR 2.6; Prothrombin Time 28.1 Seconds (9.4-12.1)
[2018-03-28 14:42] LABS: Activated Partial Thrombo Time 52.5 Seconds (26.0-36.0)
[2018-03-28 14:50] LABS: Troponin I < 0.03 ng/mL (< 0.04)
[2018-03-28 14:57] LABS: BUN/Creatinine Ratio 11 (6-26); Blood Urea Nitrogen 8 mg/dL (6-20); Calcium 8.8 mg/dL (8.6-10.3); Carbon Dioxide 22 mEq/L (23-29); Chloride 110 mEq/L (98-107); Glucose 125 mg/dL (70-105); Osmolality,Calculated 286 (280-300); Potassium 3.9 mEq/L (3.5-5.1); Sodium 138 mEq/L (136-145); eGFR For African Americans > 60 (> 60); eGFR For Non-African Americans > 60 (> 60)
[2018-03-28 15:11] LABS: D-Dimer < 215 ng/mLFEU (0-500)
[2018-03-28] MEDS ORDERED: Ipratropium/Albuterol Neb 3 ML IH ONE (15:45)
[2018-03-28] MEDS ORDERED: Acetaminophen 325 MG TABLET PO ONE (15:46)
--- NOTE | 2018-03-28 15:56 | Emergency Department Note ---
Disposition Clinical Impression: Chest pain Qualifiers: Chest pain type: unspecified Qualified Code(s): R07.9 - Chest pain, unspecified Disposition: Admitted As Inpatient Referrals: Maurisio Ward MD [Primary Care Provider] - Forms: ED Satisfaction Letter Chest Pain HPI - General Chief Complaint: ED Chest Pain Stated Complaint: chest pain Time Seen by Provider: 03/28/18 14:07 Source: patient, EMS Mode of arrival: EMS Limitations: no limitations Vital Signs Reviewed: Yes Nursing Notes Reviewed: Yes - History of Present Illness Severity scale (1-10): 0 - Related Data Home Medications Medication Instructions Recorded Confirmed Budesonide/Formoterol 160/4.5 2 puff IH BIDR 12/30/16 03/28/18 [Symbicort 160/4.5] Insulin ASPART [NovoLOG] 2 - 10 unit SQ TIDWM 12/30/16 03/28/18 Insulin Glargine,Hum.rec.anlog 36 unit SQ HS 12/30/16 03/28/18 [Lantus Solostar] Nitroglycerin [Nitrostat] 0.4 mg SL Q5M PRN 12/30/16 03/28/18 Tiotropium [Spiriva] 18 mcg IH DAILY 12/30/16 03/28/18 Calcium Polycarbophil [Fibercon] 625 mg PO DAILY 03/15/17 03/28/18 Oxygen 2 l NS HS 03/15/17 03/28/18 Atorvastatin [Lipitor] 40 mg PO HS 07/03/17 03/28/18 Quetiapine Fumarate [Seroquel] 300 mg PO HS 07/20/17 03/28/18 Buspirone HCl [Buspar] 15 mg PO BID 09/14/17 03/28/18 Furosemide [Lasix] 40 mg PO DAILY PRN 10/13/17 03/28/18 Ipratropium/Albuterol Neb [Duoneb] 3 ml IH [id number] PRN 10/13/17 03/28/18 Potassium Chloride [K-Tab ER] 10 meq PO DAILY 10/13/17 03/28/18 Prochlorperazine Maleate 10 mg PO Q8HR PRN 10/13/17 03/28/18 [Compazine] Melatonin 10 mg PO HS 10/31/17 03/28/18 Warfarin [Coumadin] 3 mg PO MOTUWETHFRSA 10/31/17 03/28/18 Acetaminophen [Tylenol] 650 mg PO Q6HR PRN 01/02/18 03/28/18 Albuterol Neb [Proventil Neb] 2.5 mg IH QID PRN 01/02/18 03/28/18 FLUoxetine HCl [Prozac] 80 mg PO DAILY 01/02/18 03/28/18 Gabapentin [Neurontin] 400 mg PO TID 01/02/18 03/28/18 Meclizine HCl [Verticalm] 25 mg PO BID PRN 01/02/18 03/28/18 Metoprolol [Lopressor] 25 mg PO BID 01/15/18 03/28/18 Naproxen 500 mg PO BID 01/15/18 03/28/18 Loratadine [Claritin] 10 mg PO DAILY 02/13/18 03/28/18 Pantoprazole Sodium [Protonix] 40 mg PO DAILY 02/13/18 03/28/18 Rizatriptan Benzoate [Maxalt] 10 mg PO DAILY PRN 02/13/18 03/28/18 Tizanidine HCl 2 mg PO DAILY 03/28/18 03/28/18 Topiramate [Topamax] 50 mg PO QAM 03/28/18 03/28/18 Topiramate [Topamax] 100 mg PO QPM 03/28/18 03/28/18 Warfarin [Coumadin] 3.5 mg PO DURHAM 03/28/18 03/28/18 Previous Rx's Medication Instructions Recorded LORazepam [Ativan] 0.5 mg PO HS #30 tablet 06/13/17 hydrOXYzine pamoate [HydrOXYzine 50 mg PO TID #90 06/20/17 Pamoate] Aspirin 81 mg PO DAILY #30 tab.chew 07/22/17 Verapamil ER (24 HR) [Calan SR] 120 mg PO HS #30 tablet.er 12/06/17 Allergies Allergy/AdvReac Type Severity Reaction Status Date / Time baclofen Allergy Itching Verified 02/13/18 20:44 ciprofloxacin [From Cipro] Allergy Hives Verified 02/13/18 20:44 latex Allergy Rash Verified 02/13/18 20:44 Penicillins Allergy Hives Verified 02/13/18 20:44 prednisone Allergy Itching Verified 02/13/18 20:44 sulfamethoxazole Allergy Hives Verified 02/13/18 20:44 [From Bactrim] trimethoprim [From Bactrim] Allergy Hives Verified 02/13/18 20:44 cefdinir AdvReac Vomiting Verified 02/13/18 20:44 Oxycodone AdvReac Hallucinati Verified 02/13/18 20:44 ng Constitutional: Denies: fever, chills, weakness ENT ED: Denies: congestion Cardiovascular: Reports: chest pain, dyspnea on exertion, syncope. Denies: orthopnea, edema Respiratory: Denies: cough, dyspnea, sputum production Gastrointestinal: Denies: abdominal pain Genitourinary: Denies: urgency Musculoskeletal: Denies: back pain, neck pain Integumentary: Denies: rash Neurological: Denies: headache Chest Pain PMH - Past Medical History Medical history: Reports: arthritis, CHF, hyperlipidemia, hypertension, other Surgical history: Reports: angioplasty/stent, appendectomy, cholecystectomy, knee replacement, orthopedic, other Psychiatric history: Reports: anxiety, bipolar, depression, prior suicide attempt, previous psychiatric hospitalization Prior Cardiac Testing/Procedures: Stenting FORECL[employer]URE [employer] history: Reports: bilateral 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 - Social History Smoking Status: Never smoker Alcohol use: Reports: none Drug use: Reports: none Physical Exam - General Limitations: no limitations General appearance: alert, in no apparent distress Course Vital Signs Temperature 0 F L 03/28/18 13:59 Pulse Rate 69 03/28/18 13:59 Respiratory Rate 18 03/28/18 13:59 Blood Pressure 129/76 03/28/18 13:59 O2 Sat by Pulse Oximetry 95 03/28/18 13:59 Temperature 0 F L 03/28/18 13:59 Pulse Rate 92 03/28/18 15:05 Respiratory Rate 18 03/28/18 15:05 Blood Pressure 106/68 03/28/18 15:05 O2 Sat by Pulse Oximetry 95 03/28/18 15:05 Oxygen Delivery Oxygen Delivery Room Air Chest Pain - Lab Data Result diagrams: 03/28/18 14:18 03/28/18 14:18 Lab Results 03/28/18 03/28/18 03/28/18 Range/Units 14:18 14:18 14:18 WBC 7.3 (4.3-11.1) K/mcL RBC 5.28 H (3.82-4.97) M/mcL Hgb 13.2 (11.5-15.4) g/dL Hct 42.4 (35.3-44.9) % MCV 80.3 L (83.0-100.0) fL MCH 25.0 L (28.0-33.3) pg MCHC 31.1 L (31.6-35.5) g/dL RDW 14.5 (11.5-14.5) % Plt Count 247 (140-400) K/mcL MPV 10.3 (9.4-12.4) fL Immature Gran % 0.7 (0-4) % Seg Neutrophils % 62.8 % Lymphocytes % 27.5 % Monocytes % 7.0 % Eosinophils % 1.6 % Basophils % 0.4 % Neutrophils # 4.6 (1.6-8.9) K/mcL Lymphocytes # 2.0 (0.6-4.6) K/mcL Monocytes # 0.5 (0.0-1.3) K/mcL Eosinophils # 0.1 (0.0-0.6) K/mcL Basophils # 0.0 (0.0-0.2) K/mcL PT 28.1 H (9.4-12.1) Seconds INR 2.6 APTT 52.5 H (26.0-36.0) Seconds D-Dimer < 215 (0-500) ng/mLFEU Sodium 138 (136-145) mEq/L Potassium 3.9 (3.5-5.1) mEq/L Chloride 110 H (98-107) mEq/L Carbon Dioxide 22 L (23-29) mEq/L BUN 8 (6-20) mg/dL Creatinine 0.75 (0.60-1.20) mg/dL Est GFR ( Amer) > 60 (> 60) Est GFR (Non-Af Amer) > 60 (> 60) BUN/Creatinine Ratio 11 (6-26) Glucose 125 H (70-105) mg/dL Calculated Osmolality 286 (280-300) Calcium 8.8 (8.6-10.3) mg/dL Troponin I < 0.03 (< 0.04) ng/mL Attestation Statement - Attestation Attestation: I, Gallo Castro, examined this patient and my medical decision-making was reviewed with the [employer] PROFESSOR/PA/Advanced Practice Nurse/Resident Physician. I agree with the documented findings, disposition and treatment plan as described except to the extent set forth below. 52-year-old female presents emergency Department with concerns of acute onset chest pain. Patient states pain started this morning after waking. She has a history of multiple MIs in the past. She follows Dr. Gregory for her cardiac care. Patient states she has history of stenosis within her coronary arteries however they are unable to stent them at this time per the patient. Patient reports mild nausea and sweating associated with the pain however she denied vomiting, recent trauma, abdominal pain, diarrhea, hematochezia. Initial troponin negative. EKG showed left bundle branch block which was similar to previous EKG. Patient will be admitted to the hospitalist for further care and evaluation.
[2018-03-28] MEDS ORDERED: *HR* FentaNYL (PF) 100 MCG/2 ML VIAL IVP ONE (16:47)
[2018-03-28] MEDS ORDERED: Nitroglycerin 0.4 MG TAB.SUBL SL PRN ×2 (19:53→21:21)
[2018-03-28] MEDS ORDERED: Naloxone 0.4 MG/ML INJ IVP PRN (21:16)
[2018-03-28] MEDS ORDERED: D5% in Water 1,000 ML IVC PRN (21:19)
[2018-03-28] MEDS ORDERED: Insulin DETEMIR 100 UNIT/ML X5UNITS SQ SCH (21:19)
[2018-03-28] MEDS ORDERED: *HR* Dextrose 50 % in Water (Syg) 50 ML SYRINGE IVP PRN (21:19)
[2018-03-28] MEDS ORDERED: Insulin LISPRO 300 UNITS/3 ML VIAL SQ SCH (21:19)
[2018-03-28] MEDS ORDERED: Dextrose Gel 15 GM/37.5 ML TUBE PO PRN ×2 (21:19)
[2018-03-28] MEDS ORDERED: (Rizatriptan Benzoate [Maxalt] 10 MG) PO PRN (21:21)
[2018-03-28] MEDS ORDERED: Ipratropium/Albuterol Neb 3 ML IH PRN (21:21)
[2018-03-28] MEDS ORDERED: Furosemide 20 MG TABLET PO PRN (21:21)
[2018-03-28] MEDS ORDERED: *HR* LORazepam 0.5 MG TABLET PO SCH (21:26)
[2018-03-28] MEDS ORDERED: Melatonin 3 MG TABLET PO SCH (21:30)
--- NOTE | 2018-03-28 22:23 | Internal Med History&Physical ---
Date of Encounter: 03/28/18 Time of Encounter: 19:00 Internal Medicine - H&P: HPI Chief complaint: Chest pain Admitted From: Home Plans for Post Hospital Care: Home History of present illness: Ms. Strong is a 52 year old female present to ER for chest pain. Past medical history is significant for diabetes, CAD S/P stent, hypertension, history of CVA , COPD on home oxygen during night, paroxysmal A. fib on Coumadin. Patient said she started to have chest pain since last night. Chest pain located on mid chest, dull, 8/10, radiated to left jaw and left arm. Chest pain is intermittent, lasts 2-3 minutes, totally patient had four episode of chest pain since last night. Patient denies shortness of breath, nausea, or diaphoresis when she has pain. He denies fever or cough. When I saw patient on floor, she is pain-free. Patient had recent LHC in Nov, which shows minimal stenosis. Patient was admitted for ACS rule out. Past Med Surg Social Fam HX - Past Medical History Medical history: arthritis, CHF, hyperlipidemia, hypertension, other Additional medical history: brain anurysm Psychiatric history: anxiety, bipolar, depression, prior suicide attempt, previous psychiatric hospitalization - Past Surgical History Surgical History: angioplasty/stent, appendectomy, cholecystectomy, knee replacement, orthopedic, other Additional surgical history: Cardiac Stent - Social History Smoking Status: Never smoker Smokeless Tobacco Status: No Alcohol use: none Drug use: none - Family History Father Adopted: No Family Member Ethnicity: Non- Living Status: Sister Family Member Ethnicity: Non- Living Status: Still Living Grandfather Family Member Ethnicity: Non- Living Status: Hx Family Cardiac Disorders: Yes (MS, CAD) Mother Adopted: No Family Member Ethnicity: Non- Living Status: Hx Family Cardiac Disorders: Yes Hx Family Respiratory Disorders: Yes (COPD) Hx Family Cancer: No Hx Family GI Disorders: No Hx Family Endocrine Disorder: No Hx Family Neuromuscular Disorders: No Hx Family Neurologic Disorders: No Hx Family HEENT Disorders: No Hx Family Autoimmune Disorders: No Internal Medicine - H&P: Meds Budesonide/Formoterol 160/4.5 [Symbicort 160/4.5] 2 puff IH BIDR 12/30/16 [ History] Insulin ASPART [NovoLOG] 2 - 10 unit SQ TIDWM 12/30/16 [History] Insulin Glargine,Hum.rec.anlog [Lantus Solostar] 36 unit SQ HS 12/30/16 [History ] Nitroglycerin [Nitrostat] 0.4 mg SL Q5M PRN 12/30/16 [History] Tiotropium [Spiriva] 18 mcg IH DAILY 12/30/16 [History] Calcium Polycarbophil [Fibercon] 625 mg PO DAILY 03/15/17 [History] Oxygen 2 l NS HS 03/15/17 [History] LORazepam [Ativan] 0.5 mg PO HS #30 tablet 06/13/17 [Rx] hydrOXYzine pamoate [HydrOXYzine Pamoate] 50 mg PO TID #90 06/20/17 [Rx] Atorvastatin [Lipitor] 40 mg PO HS 07/03/17 [History] Quetiapine Fumarate [Seroquel] 300 mg PO HS 07/20/17 [History] Aspirin 81 mg PO DAILY #30 tab.chew 07/22/17 [Rx] Buspirone HCl [Buspar] 15 mg PO BID 09/14/17 [History] Furosemide [Lasix] 40 mg PO DAILY PRN 10/13/17 [History] Ipratropium/Albuterol Neb [Duoneb] 3 ml IH [id number] PRN 10/13/17 [History] Potassium Chloride [K-Tab ER] 10 meq PO DAILY 10/13/17 [History] Prochlorperazine Maleate [Compazine] 10 mg PO Q8HR PRN 10/13/17 [History] Melatonin 10 mg PO HS 10/31/17 [History] Warfarin [Coumadin] 3 mg PO MOTUWETHFRSA 10/31/17 [History] Verapamil ER (24 HR) [Calan SR] 120 mg PO HS #30 tablet.er 12/06/17 [Rx] Acetaminophen [Tylenol] 650 mg PO Q6HR PRN 01/02/18 [History] Albuterol Neb [Proventil Neb] 2.5 mg IH QID PRN 01/02/18 [History] FLUoxetine HCl [Prozac] 80 mg PO DAILY 01/02/18 [History] Gabapentin [Neurontin] 400 mg PO TID 01/02/18 [History] Meclizine HCl [Verticalm] 25 mg PO BID PRN 01/02/18 [History] Metoprolol [Lopressor] 25 mg PO BID 01/15/18 [History] Naproxen 500 mg PO BID 01/15/18 [History] Loratadine [Claritin] 10 mg PO DAILY 02/13/18 [History] Pantoprazole Sodium [Protonix] 40 mg PO DAILY 02/13/18 [History] Rizatriptan Benzoate [Maxalt] 10 mg PO DAILY PRN 02/13/18 [History] Tizanidine HCl 2 mg PO DAILY 03/28/18 [History] Topiramate [Topamax] 50 mg PO QAM 03/28/18 [History] Topiramate [Topamax] 100 mg PO QPM 03/28/18 [History] Warfarin [Coumadin] 3.5 mg PO DURHAM 03/28/18 [History] 3 Allergy/AdvReac Type Severity Reaction Status Date / Time baclofen Allergy Itching Verified 02/13/18 20:44 ciprofloxacin [From Cipro] Allergy Hives Verified 02/13/18 20:44 latex Allergy Rash Verified 02/13/18 20:44 Penicillins Allergy Hives Verified 02/13/18 20:44 prednisone Allergy Itching Verified 02/13/18 20:44 sulfamethoxazole Allergy Hives Verified 02/13/18 20:44 [From Bactrim] trimethoprim [From Bactrim] Allergy Hives Verified 02/13/18 20:44 cefdinir AdvReac Vomiting Verified 02/13/18 20:44 Oxycodone AdvReac Hallucinati Verified 02/13/18 20:44 ng All Systems PM: A 10-system review of systems was performed and is negative for pertinent findings except as documented above in the HPI. - Constitutional Vitals: Temp Pulse Resp BP Pulse Ox 97.9 F 71 16 109/69 94 03/28/18 20:00 03/28/18 20:00 03/28/18 20:00 03/28/18 20:00 03/28/18 20:00 General appearance: Present: A&O X 3, no acute distress, answers questions appropriately - Head Head exam: Present: atraumatic, normocephalic - Eye Eye exam: Present: PERRL, conjuntiva pink, sclera anicteric Pupils: Present: PERRL - Neck Neck exam general surgery: Present: supple, trachea midline. Absent: lymphadenopathy - Respiratory Respiratory exam: Present: CTAB. Absent: accessory muscle use, rales, rhonchi, wheezes - Cardiovascular Cardiovascular exam: Present: RRR, +S1, +S2. Absent: diastolic murmur, gallop, rubs, systolic murmur - GI/Abdominal GI/Abdominal exam: Present: normal bowel sounds, soft, no peritoneal signs. Absent: distended, tenderness - Extremities Exam Extremities exam: Present: warm, radial pulses palpable and symmetrical. Absent : calf tenderness, cyanotic, pedal edema - Neurological Exam Neurological exam: Present: CN II-XII intact, oriented X3, no focal deficits. Absent: pronater drift, facial droop, speech deficit - Skin Skin exam: Present: dry, intact Internal Med - H&P Results - Labs CBC & Chem 7: 03/28/18 14:18 03/28/18 14:18 Labs: Cardiac Enzymes 03/28/18 Range/Units 20:06 Troponin I < 0.03 (< 0.04) ng/mL - Assessment and plan (1) Chest pain Current Visit: Yes Status: Acute Assessment and plan: Etiology is undetermined. Patient has history of CAD. Need to rule out ACS. - Continuous cardiac monitoring. - Track 3 sets of troponin. Qualifiers: Chest pain type: unspecified Qualified Code(s): R07.9 - Chest pain, unspecified (2) Afib Current Visit: No Status: Chronic Assessment and plan: Currently sinus rhythm. Heart rate is well controlled. Continue home medication for rate control. Continue Coumadin. Qualifiers: Atrial fibrillation type: paroxysmal Qualified Code(s): I48.0 - Paroxysmal atrial fibrillation (3) CAD (coronary artery disease) Current Visit: No Status: Chronic Assessment and plan: Continue home medications aspirin, beta lizzette, and statin. Qualifiers: Coronary Disease-Associated Artery/Lesion type: [place] artery [place] vs. transplanted heart: [place] heart Associated angina: without angina Qualified Code(s): I25.10 - Atherosclerotic heart disease of [place] coronary artery without angina pectoris (4) COPD (chronic obstructive pulmonary disease) Current Visit: No Status: Chronic Assessment and plan: Stable. Continue home medications. Continue oxygen during night. Qualifiers: COPD type: unspecified COPD Qualified Code(s): J44.9 - Chronic obstructive pulmonary disease, unspecified (5) Diabetes mellitus type 2 in obese Current Visit: No Status: Chronic Assessment and plan: Continue basal and sliding scale insulin coverage. Closely monitor glucose. (6) History of CVA (cerebrovascular accident) Current Visit: No Status: Chronic Assessment and plan: Continue antiplatelet and statin. - Time Spent With Patient Total time spent is greater than 50% in coordination of care (as documented) at patient's floor/unit and/or counseling patient: 40 minutes Greater than 35 minutes
[2018-03-28] MEDS: Budesonide/Formoterol 160/4.5 MDI IH SCH (23:14)
[2018-03-28] MEDS: Albuterol 2.5 MG/3 ML NEBULIZER IH SCH (23:14)
[2018-03-29 01:42] LABS: Basophils % 0.5 %; Eosinophils # 0.1 K/mcL (0.0-0.6); Hematocrit 38.8 % (35.3-44.9); Hemoglobin 12.3 g/dL (11.5-15.4); Immature Granulocytes % 0.9 % (0-4); Lymphocytes # 1.9 K/mcL (0.6-4.6); Lymphocytes % 32.9 %; Mean Corpuscular HGB Conc 31.7 g/dL (31.6-35.5); Mean Corpuscular Hemoglobin 25.6 pg (28.0-33.3); Mean Corpuscular Volume 80.8 fL (83.0-100.0); Monocytes # 0.4 K/mcL (0.0-1.3); Monocytes % 7.5 %; Neutrophils # 3.2 K/mcL (1.6-8.9); Platelet Count 198 K/mcL (140-400); Red Cell Distribution Width 14.4 % (11.5-14.5); Segmented Neutrophils % 56.2 %
[2018-03-29 01:49] LABS: INR 2.8
[2018-03-29 02:03] LABS: Troponin I < 0.03 ng/mL (< 0.04)
[2018-03-29 02:04] LABS: BUN/Creatinine Ratio 12 (6-26); Blood Urea Nitrogen 9 mg/dL (6-20); Calcium 8.5 mg/dL (8.6-10.3); Carbon Dioxide 21 mEq/L (23-29); Chloride 108 mEq/L (98-107); Chol/HDL Ratio 8.1 (0-4.9); Cholesterol 259 mg/dL (< 200); Glucose 177 mg/dL (70-105); HDL Cholesterol 32 mg/dL (40-59); LDL Cholesterol,Calculated 158 mg/dL (0-99); Magnesium 1.8 mg/dL (1.6-2.6); Osmolality,Calculated 293 (280-300); Potassium 3.7 mEq/L (3.5-5.1); Sodium 140 mEq/L (136-145); Triglycerides 347 mg/dL (< 150); eGFR For African Americans > 60 (> 60); eGFR For Non-African Americans > 60 (> 60)
[2018-03-29] MEDS: Albuterol 2.5 MG/3 ML NEBULIZER IH SCH ×2 (03:33→10:54)
[2018-03-29] MEDS ORDERED: Insulin LISPRO 300 UNITS/3 ML VIAL SQ SCH (07:30)
[2018-03-29] MEDS ORDERED: Loratadine 10 MG TABLET PO SCH (09:00)
[2018-03-29] MEDS ORDERED: FLUoxetine 20 MG CAPSULE PO SCH (09:00)
[2018-03-29] MEDS ORDERED: tiZANidine 4 MG TABLET PO SCH (09:00)
[2018-03-29] MEDS ORDERED: Topiramate 25 MG TABLET PO SCH (09:00)
[2018-03-29] MEDS ORDERED: Aspirin 81 MG TAB.CHEW PO SCH (09:00)
[2018-03-29] MEDS ORDERED: Gabapentin 400 MG CAPSULE PO SCH (09:00)
[2018-03-29] MEDS ORDERED: hydrOXYzine pamoate 25 MG CAPSULE PO SCH (09:00)
[2018-03-29] MEDS ORDERED: Tiotropium 18 MCG inhalation IH SCH (09:00)
[2018-03-29] MEDS: Budesonide/Formoterol 160/4.5 MDI IH SCH (10:54)
--- NOTE | 2018-03-29 11:07 | Discharge Summary ---
- NOTES TO OUTPATIENT PROVIDER Notes to Outpatient Provider: Presented with chest pain, atypical presentation. ECG found to be negative for acute ischemia. Troponins negative 3. Recent C in November 2017, showing minimal occlusive disease. ACS ruled out. Chest pain subsided prior to discharge. Instructed to follow-up with PCP within one week. No diagnostic studies: Labs pending at the see Orders not resulted at time of discharge: Pending orders 03/30/18 04:00 PT/INR [Prothrombin Time INR] [COAG] AM 0400 Date of Encounter: 03/29/18 Time of Encounter: 11:05 - Discharge Diagnosis (1) Chest pain Priority: Secondary Status: Resolved Assessment and Plan: ACS ruled out Patient with a PMH significant for DM, CAD S/P stent HTN and COPD with oxygen dependence as well as paroxysmal A. fib. Presented with chest pain, x4 episodes lasting approximately 2-3 minutes each event. Radiation to left arm and jaw. No exertional component, shortness of breath, nausea or diaphoresis. CXR negative for acute pulmonary process, troponins negative 3, ECG tracing without any ST changes concerning for ischemia [facility]-11/2017 showing minimally occlusive disease, stent patent Patient is on aspirin, statin, beta lizzette, and warfarin Given recent negative cardiac workup and resolution of chest pain without further intervention an uneventful hospital course the patient is being discharged. Does not appear that the chest pain is cardiac etiology. Patient has history of GERD and admits to frequent GERD flares. She has been instructed to follow-up with PCP following her discharge. Also, informed return to the ED should chest pain symptoms return. Patient verbalized understanding and denies any further questions at this time. Qualifiers: Chest pain type: unspecified Qualified Code(s): R07.9 - Chest pain, unspecified (2) Diabetes mellitus type 2 in obese Priority: Primary Status: Chronic Assessment and Plan: History of DM 2 Continue home insulin regimen at DC (3) Afib Priority: Secondary Status: Chronic Assessment and Plan: History of paroxysmal A. fib, currently rate control and sinus rhythm. Continue beta lizzette and warfarin at DC Qualifiers: Atrial fibrillation type: paroxysmal Qualified Code(s): I48.0 - Paroxysmal atrial fibrillation (4) COPD (chronic obstructive pulmonary disease) Priority: Secondary Status: Chronic Assessment and Plan: Stable. Not in acute exacerbation. Continue COPD medications at discharge Qualifiers: COPD type: unspecified COPD Qualified Code(s): J44.9 - Chronic obstructive pulmonary disease, unspecified (5) CAD (coronary artery disease) Priority: Secondary Status: Chronic Assessment and Plan: Continue home medications aspirin, beta lizzette, and statin. Qualifiers: Coronary Disease-Associated Artery/Lesion type: [place] artery [place] vs. transplanted heart: [place] heart Associated angina: without angina Qualified Code(s): I25.10 - Atherosclerotic heart disease of [place] coronary artery without angina pectoris (6) History of CVA (cerebrovascular accident) Priority: Secondary Status: Chronic Assessment and Plan: History of CVA Nonfocal neuro exam Continue antiplatelet and statin. Hospital course: Ms. Strong is a 52 year old female Please see assessment and plan for hospital course Discharge discussed with: patient, family, nurse - Time Spent with Patient Total time spent providing and/or coordinating discharge services: Less than 30 minutes - Discharge Medications Home Medications: Budesonide/Formoterol 160/4.5 [Symbicort 160/4.5] 2 puff IH BIDR 12/30/16 [ History] Insulin ASPART [NovoLOG] 2 - 10 unit SQ TIDWM 12/30/16 [History] Insulin Glargine,Hum.rec.anlog [Lantus Solostar] 36 unit SQ HS 12/30/16 [History ] Nitroglycerin [Nitrostat] 0.4 mg SL Q5M PRN 12/30/16 [History] Tiotropium [Spiriva] 18 mcg IH DAILY 12/30/16 [History] Calcium Polycarbophil [Fibercon] 625 mg PO DAILY 03/15/17 [History] Oxygen 2 l NS HS 03/15/17 [History] LORazepam [Ativan] 0.5 mg PO HS #30 tablet 06/13/17 [Rx] hydrOXYzine pamoate [HydrOXYzine Pamoate] 50 mg PO TID #90 06/20/17 [Rx] Atorvastatin [Lipitor] 40 mg PO HS 07/03/17 [History] Quetiapine Fumarate [Seroquel] 300 mg PO HS 07/20/17 [History] Aspirin 81 mg PO DAILY #30 tab.chew 07/22/17 [Rx] Buspirone HCl [Buspar] 15 mg PO BID 09/14/17 [History] Furosemide [Lasix] 40 mg PO DAILY PRN 10/13/17 [History] Ipratropium/Albuterol Neb [Duoneb] 3 ml IH [id number] PRN 10/13/17 [History] Potassium Chloride [K-Tab ER] 10 meq PO DAILY 10/13/17 [History] Prochlorperazine Maleate [Compazine] 10 mg PO Q8HR PRN 10/13/17 [History] Melatonin 10 mg PO HS 10/31/17 [History] Warfarin [Coumadin] 3 mg PO MOTUWETHFRSA 10/31/17 [History] Verapamil ER (24 HR) [Calan SR] 120 mg PO HS #30 tablet.er 12/06/17 [Rx] Acetaminophen [Tylenol] 650 mg PO Q6HR PRN 01/02/18 [History] Albuterol Neb [Proventil Neb] 2.5 mg IH QID PRN 01/02/18 [History] FLUoxetine HCl [Prozac] 80 mg PO DAILY 01/02/18 [History] Gabapentin [Neurontin] 400 mg PO TID 01/02/18 [History] Meclizine HCl [Verticalm] 25 mg PO BID PRN 01/02/18 [History] Metoprolol [Lopressor] 25 mg PO BID 01/15/18 [History] Naproxen 500 mg PO BID 01/15/18 [History] Loratadine [Claritin] 10 mg PO DAILY 02/13/18 [History] Pantoprazole Sodium [Protonix] 40 mg PO DAILY 02/13/18 [History] Rizatriptan Benzoate [Maxalt] 10 mg PO DAILY PRN 02/13/18 [History] Tizanidine HCl 2 mg PO DAILY 03/28/18 [History] Topiramate [Topamax] 50 mg PO QAM 03/28/18 [History] Topiramate [Topamax] 100 mg PO QPM 03/28/18 [History] Warfarin [Coumadin] 3.5 mg PO DURHAM 03/28/18 [History] Famotidine [Acid Tim[employer]ing [employer] Operator] 10 mg PO DAILY 30 Days #30 tablet 03/29/18 [Rx] Allergies/Adverse Reactions: 3 Allergy/AdvReac Type Severity Reaction Status Date / Time baclofen Allergy Itching Verified 02/13/18 20:44 ciprofloxacin [From Cipro] Allergy Hives Verified 02/13/18 20:44 latex Allergy Rash Verified 02/13/18 20:44 Penicillins Allergy Hives Verified 02/13/18 20:44 prednisone Allergy Itching Verified 02/13/18 20:44 sulfamethoxazole Allergy Hives Verified 02/13/18 20:44 [From Bactrim] trimethoprim [From Bactrim] Allergy Hives Verified 02/13/18 20:44 cefdinir AdvReac Vomiting Verified 02/13/18 20:44 Oxycodone AdvReac Hallucinati Verified 02/13/18 20:44 ng Date of admission: 03/28/18 16:54 Primary care physician: Maurisio Ward MD Discharging clinician: Volodymyr Quigley Anticipated date of discharge: 03/29/18 - Constitutional Vitals: Temp Pulse Resp BP Pulse Ox 98.3 F 78 18 143/80 96 03/29/18 07:04 03/29/18 07:04 03/29/18 10:56 03/29/18 07:04 03/29/18 10:56 General appearance: Present: A&O X 3, no acute distress, answers questions appropriately - Head Head exam: Present: atraumatic, normocephalic - Eye Eye exam: Present: PERRL, conjuntiva pink, sclera anicteric Pupils: Present: PERRL - Neck Neck exam general surgery: Present: supple, trachea midline. Absent: lymphadenopathy - Respiratory Respiratory exam: Present: CTAB. Absent: accessory muscle use, rales, rhonchi, wheezes - Cardiovascular Cardiovascular exam: Present: RRR, +S1, +S2. Absent: diastolic murmur, gallop, rubs, systolic murmur - GI/Abdominal GI/Abdominal exam: Present: normal bowel sounds, soft, no peritoneal signs. Absent: distended, tenderness - Extremities Exam Extremities exam: Present: warm, radial pulses palpable and symmetrical. Absent : calf tenderness, cyanotic, pedal edema - Neurological Exam Neurological exam: Present: CN II-XII intact, oriented X3, no focal deficits. Absent: pronater drift, facial droop, speech deficit - Skin Skin exam: Present: dry, intact - Patient Status Disposition: Home, Self-Care Condition: Good Overall status at discharge: patient is back to baseline - Discharge Instructions Instructions: Chest Pain (DC) Follow Up With: Maurisio Ward MD [Primary Care Provider] - - Diet and Activity Activity: increase activity as tolerated, resume usual activities as tolerated Diet: diabetic diet, low fat, low cholesterol
[2018-03-29] MEDS ORDERED: *HR* Warfarin 3 MG TABLET PO ONE ×2 (11:15→18:00)
[2018-03-29 11:30] VITALS: BP 104/66
--- NOTE | 2018-03-29 12:29 | Electrocardiograph Report ---
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
--- NOTE | 2018-03-29 12:32 | Electrocardiograph Report ---
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
[2018-03-29] MEDS ORDERED: Warfarin perPT PO PRN (18:00)
[2018-03-29] MEDS ORDERED: Topiramate 100 MG TABLET PO SCH (18:00)
[2018-03-29] MEDS ORDERED: NON-FORMULARY MEDICATION 1 EACH EACH (Oxygen [Oxygen] 2 L) NS SCH (21:00)
[2018-03-29] MEDS ORDERED: Verapamil ER (24 HR) 120 MG TABLET.ER PO SCH (21:00)
== END 2018-03-29 13:11 | disposition home or self-care (01) ==
LOC: EMEROO 13:58 → 3BNU 13:58
PROVIDERS: ADMIT Internal Medicine; ATTEND Hospitalist

== ENCOUNTER 2018-07-16 09:46 | Inpatient (IN) ==
--- NOTE | 2018-07-16 10:06 | Emergency Department Note ---
Disposition Clinical Impression: Toe necrosis, Elevated lactic acid level Disposition: Admitted As Inpatient Condition: Good Referrals: Maurisio Ward MD [Primary Care Provider] - Forms: ED Satisfaction Letter Lower Extremity Injury HPI - General Chief Complaint: ED Extremity Injury, Lower Stated Complaint: necrotic toe Time Seen by Provider: 07/16/18 09:49 Source: patient Mode of arrival: private vehicle Limitations: no limitations Nursing Notes Reviewed: Yes Vital Signs Reviewed: Yes - History of Present Illness HPI Narrative: 53-year-old female presenting to the ER due to concerns for her right third toe. The patient underwent what appears to be operative intervention in mid May of this year for hammertoe deformities of her second through fourth digits. She had rods placed that time. States that last week she saw her call center director to removed the ba from her toe. She states that she was doing well and was on doxycycline since Tuesday. Reports yesterday her toe started to change colors. Reports pain there as well as some bleeding from the site. She took a picture of her toe today and sent it to her call center director to urged her to come here for evaluation, antibiotics and admission. The patient is a diabetic without an extensive history of peripheral neuropathy. She reports subjective fevers and chills at home as well as nausea. Pt Subjective Complaint: toe injury Onset (ago): day(s) Mechanism of Injury: other (Recent surgery) Improves with: nothing Worsens with: nothing Treatments prior to arrival: other (Antibiotics) - Related Data Home Medications Medication Instructions Recorded Confirmed Budesonide/Formoterol 160/4.5 2 puff IH BIDR 12/30/16 06/04/18 [Symbicort 160/4.5] Insulin ASPART [NovoLOG] 2 - 10 unit SQ TIDWM 12/30/16 06/04/18 Insulin Glargine,Hum.rec.anlog 36 unit SQ HS 12/30/16 06/04/18 [Lantus Solostar] Nitroglycerin [Nitrostat] 0.4 mg SL Q5M PRN 12/30/16 06/04/18 Tiotropium [Spiriva] 18 mcg IH DAILY 12/30/16 06/04/18 Oxygen 2 l NS HS 03/15/17 06/04/18 Quetiapine Fumarate [Seroquel] 300 mg PO HS 07/20/17 06/04/18 Buspirone HCl [Buspar] 15 mg PO BID 09/14/17 06/04/18 Ipratropium/Albuterol Neb [Duoneb] 3 ml IH Q6TODAN PRN 10/13/17 06/04/18 Melatonin 10 mg PO HS 10/31/17 06/04/18 Warfarin [Coumadin] 3 mg PO SUMOWETHFRSA 10/31/17 06/04/18 FLUoxetine HCl [Prozac] 80 mg PO DAILY 01/02/18 06/04/18 Meclizine HCl [Verticalm] 25 mg PO BID PRN 01/02/18 06/04/18 Metoprolol [Lopressor] 12.5 mg PO BID 01/15/18 06/04/18 Pantoprazole Sodium [Protonix] 40 mg PO DAILY 02/13/18 06/04/18 Tizanidine HCl 2 mg PO DAILY 03/28/18 06/04/18 Topiramate [Topamax] 50 mg PO BID 03/28/18 06/04/18 Gabapentin [Neurontin] 600 mg PO TID 05/06/18 06/04/18 Oxycodone HCl/Acetaminophen 1 tab PO Q8H PRN 05/06/18 06/04/18 [Percocet 5-325 mg Tablet] traZODone [TraZODone] 25 mg PO TID 05/24/18 06/04/18 Warfarin Sodium [Warfarin Sodium] 4.5 mg PO TU 06/04/18 06/04/18 Previous Rx's Medication Instructions Recorded hydrOXYzine pamoate [HydrOXYzine 50 mg PO TID #90 06/20/17 Pamoate] Aspirin 81 mg PO DAILY #30 tab.chew 07/22/17 Verapamil ER (24 HR) [Calan SR] 120 mg PO HS #30 tablet.er 12/06/17 Ondansetron ODT [Zofran ODT] 4 mg SL Q8HR PRN #15 tab.rapdis 05/24/18 Allergies Allergy/AdvReac Type Severity Reaction Status Date / Time baclofen Allergy Itching Verified 06/04/18 15:55 ciprofloxacin [From Cipro] Allergy Hives Verified 06/04/18 15:55 latex Allergy Rash Verified 06/04/18 15:55 Penicillins Allergy Hives Verified 06/04/18 15:55 prednisone Allergy Itching Verified 06/04/18 15:55 sulfamethoxazole Allergy Hives Verified 06/04/18 15:55 [From Bactrim] trimethoprim [From Bactrim] Allergy Hives Verified 06/04/18 15:55 cefdinir AdvReac Vomiting Verified 06/04/18 15:55 All systems ED: reviewed and negative except as stated. Constitutional: Reports: fever (Subjective), chills Gastrointestinal: Reports: nausea, vomiting. Denies: abdominal pain Integumentary: Reports: lesions (Right third toe) Past Medical History - Past Medical History Attestation: Yes The following information was validated with the patient. Source: patient Medical history: Reports: arthritis, atrial fibrillation, COPD, CVA, diabetes, GERD, hyperlipidemia, hypertension, myocardial infarction, other Surgical history: Reports: angioplasty/stent, appendectomy, cholecystectomy, knee replacement, orthopedic, other Psychiatric history: Reports: bipolar, depression, previous psychiatric hospitalization [employer]AFF [employer] OFFICER history: Reports: bilateral 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 - Social History Smoking Status: Current every day smoker Smokeless Tobacco Status: No Alcohol use: Reports: none Drug use: Reports: none Physical Exam - General Limitations: no limitations General appearance: alert, in no apparent distress - Head Head exam: atraumatic, normocephalic - Eye Eye exam: Present: normal appearance - ENT ENT exam: normal exam - Neck Neck exam: Present: normal inspection, full ROM - Chest Chest inspection: Present: normal inspection, symmetric chest wall rise - Respiratory Respiratory exam: Present: normal lung sounds bilaterally - Cardiovascular Cardiovascular exam: Present: normal rhythm, tachycardia, normal heart sounds - Abdominal Exam Abdominal exam: Present: soft, Non-Tender. Absent: tenderness, distention, rigidity - Extremities Exam Extremities exam: Present: normal inspection, full ROM - Expanded Upper Extremity Exam Shoulder exam: Present: normal inspection, full ROM Arm exam: Present: normal inspection, full ROM Elbow exam: Present: normal inspection, full ROM Forearm/Wrist exam: Present: normal inspection, full ROM Hand exam: Present: normal inspection, full ROM - Expanded Lower Extremity Exam Hip/Pelvis exam: Present: normal inspection, full ROM Upper leg exam: Present: normal inspection, full ROM Knee exam: Present: normal inspection, full ROM Lower leg exam: Present: normal inspection, full ROM Ankle exam: Present: normal inspection, full ROM Foot/toe exam: Present: full ROM 1 - Right third toe has a necrotic area involving the majority of the dorsal aspect. No drainage currently from the toe. Neurovascular/Tendon exam: Absent: pulse deficit, motor deficit, sensory deficit - Skin Skin exam: Present: warm, dry Course Course Narrative: Patient seen and examined. Vital signs reviewed. Plan for labs, lactate, blood cultures. Broad-spectrum antibiotics as well as imaging to evaluate for potential gas-forming organism. Podiatry consult ordered. Plan to admit for continued evaluation. - Consultations Consultation #1: Case discussed with the on-call call center director. Discussed imaging as well as labs. They recommend vancomycin and admission to the hospitalist and they will see the patient in consultation. Vital Signs Temperature 97.9 F 07/16/18 09:49 Pulse Rate 111 07/16/18 09:49 Respiratory Rate 20 07/16/18 09:49 Blood Pressure 143/84 07/16/18 09:49 O2 Sat by Pulse Oximetry 96 07/16/18 09:49 Temperature 97.9 F 07/16/18 09:49 Pulse Rate 96 07/16/18 10:30 Respiratory Rate 18 07/16/18 10:30 Blood Pressure 105/52 07/16/18 10:30 O2 Sat by Pulse Oximetry 98 07/16/18 10:30 Oxygen Delivery Oxygen Delivery Room Air Extremity Injury, Lower - MDM Narrative Medical decision making narrative: 53-year-old female presenting with necrotic toe since yesterday. She is hemodynamically stable here. She does have a lactic of 3.5. She was given 2 L of IV fluids as well as vancomycin at the recommendation of the call center director. I treat is aware of the patient being here and will be consulted for further management. The patient is admitted to the hospitalist service. - Lab Data Lab results reviewed: Yes I reviewed the patient's lab results. Result diagrams: 07/16/18 09:55 07/16/18 09:55 Lab Results 07/16/18 07/16/18 07/16/18 Range/Units 09:55 09:55 09:55 WBC 8.5 (4.3-11.1) K/mcL RBC 4.87 (3.82-4.97) M/mcL Hgb 12.4 (11.5-15.4) g/dL Hct 38.9 (35.3-44.9) % MCV 79.9 L (83.0-100.0) fL MCH 25.5 L (28.0-33.3) pg MCHC 31.9 (31.6-35.5) g/dL RDW 16.1 H (11.5-14.5) % Plt Count 221 (140-400) K/mcL MPV 10.2 (9.4-12.4) fL Immature Gran % 0.6 (0-4) % Seg Neutrophils % 72.0 % Lymphocytes % 21.5 % Monocytes % 4.3 % Eosinophils % 1.1 % Basophils % 0.5 % Neutrophils # 6.1 (1.6-8.9) K/mcL Lymphocytes # 1.8 (0.6-4.6) K/mcL Monocytes # 0.4 (0.0-1.3) K/mcL Eosinophils # 0.1 (0.0-0.6) K/mcL Basophils # 0.0 (0.0-0.2) K/mcL ESR 21 H (0-15) mm/hr PT 12.3 H (9.4-12.1) Seconds INR 1.1 Sodium (136-145) mEq/L Potassium (3.5-5.1) mEq/L Chloride (98-107) mEq/L Carbon Dioxide (23-29) mEq/L BUN (6-20) mg/dL Creatinine (0.60-1.20) mg/dL Est GFR ( Amer) (> 60) Est GFR (Non-Af Amer) (> 60) BUN/Creatinine Ratio (6-26) Glucose (70-105) mg/dL Calculated Osmolality (280-300) Lactic Acid (0.5-2.2) mmol/L Calcium (8.6-10.3) mg/dL C-Reactive Protein (Less than 10) mg/L 07/16/18 07/16/18 Range/Units 09:55 10:15 WBC (4.3-11.1) K/mcL RBC (3.82-4.97) M/mcL Hgb (11.5-15.4) g/dL Hct (35.3-44.9) % MCV (83.0-100.0) fL MCH (28.0-33.3) pg MCHC (31.6-35.5) g/dL RDW (11.5-14.5) % Plt Count (140-400) K/mcL MPV (9.4-12.4) fL Immature Gran % (0-4) % Seg Neutrophils % % Lymphocytes % % Monocytes % % Eosinophils % % Basophils % % Neutrophils # (1.6-8.9) K/mcL Lymphocytes # (0.6-4.6) K/mcL Monocytes # (0.0-1.3) K/mcL Eosinophils # (0.0-0.6) K/mcL Basophils # (0.0-0.2) K/mcL ESR (0-15) mm/hr PT (9.4-12.1) Seconds INR Sodium 139 (136-145) mEq/L Potassium 3.1 L (3.5-5.1) mEq/L Chloride 108 H (98-107) mEq/L Carbon Dioxide 20 L (23-29) mEq/L BUN 8 (6-20) mg/dL Creatinine 0.68 (0.60-1.20) mg/dL Est GFR ( Amer) > 60 (> 60) Est GFR (Non-Af Amer) > 60 (> 60) BUN/Creatinine Ratio 12 (6-26) Glucose 203 H (70-105) mg/dL Calculated Osmolality 292 (280-300) Lactic Acid 3.5 H (0.5-2.2) mmol/L Calcium 8.6 (8.6-10.3) mg/dL C-Reactive Protein 36 H (Less than 10) mg/L - Radiology Data Radiology results reviewed: Yes I reviewed the patient's radiology results. Foot X-Ray 07/16/18 09:55 IMPRESSION: 1. Interval removal of the screw traversing the 3rd digit with bony findings as described above. Osteomyelitis cannot be excluded. There is 3rd digit soft tissue swelling. No subcutaneous gas identified. 2. Status post ORIF of the 2nd digit. No hardware complication. D/ / 07/16/2018 10:22:50 Park Garcia MD / hugo Interpreting Provider: MD Veronika Snell - Veronika Situation: Demographics, MOA Background: Presenting Complaint, Relevant PMH, Meds, & Allergies Assessment: Vital Signs, Course and respsone to treatment, Exam Concerns, Patient/Family Expectation, Pertinant Lab Results Recommendation: Barrier(s) to disposition, Recommendation based on pending studies, treatments, or consults Veronika Report Given to: Dr. Timoteo Banda Repor Time: 11:28 Attestation Statement - Attestation Attestation: Patient was seen with resident physician. I reviewed the history, physical, assessment and plan, and agree with the findings. I also personally evaluated this patient and had [id number] time with this patient. 53-year-old female presents emergency Department chief complaint of black right third toe. Patient was sent in by podiatry who recently removed rods that were placed as part of a surgical correction for hammer toe. Patient states that over the last 24 hours the toe has gotten black she has had a small amount of pus expressed from it, and she has lost some sensation. She does have a history of diabetes. She said general she just does not feel well but she is not complaining of any fevers. Review systems as above remainder negative. Vital signs are stable. ENT is unremarkable. Heart regular rhythm and rate. Lungs clear. Abdomen soft nontender. Extremities no swelling. She does have what appears to be a developing infection of the right third toe. It is purple and bruised and because of this is difficult to tell if it is necrotic certainly not to the point that the tissue has completely broken down. Neurologically intact except for some decreased sensation in the toe as previously stated. Skin no additional rashes were seen. Psych normal. ED course we will get an x-ray we will check some labs, we will start an IV antibiotics as per podiatry's request. He also requested the patient be admitted to the hospital service for continuation of IV antibiotic therapy, as well as podiatry consult and possible additional surgical intervention as indicated. X-rays of the time of ED evaluation could not specifically rule out osteomyelitis. Hemodynamically the patient remained stable while in the emergency department we spoke with the hospitalist range admission and the patient was admitted to inpatient services I agree with resident physician assessment and plan.
[2018-07-16] MEDS ORDERED: 0.9 % Sodium Chloride 1,000 ML IVC ONE ×2 (10:08→10:41)
[2018-07-16 10:28] LABS: Basophils % 0.5 %; Eosinophils # 0.1 K/mcL (0.0-0.6); Eosinophils % 1.1 %; Hematocrit 38.9 % (35.3-44.9); Hemoglobin 12.4 g/dL (11.5-15.4); Immature Granulocytes % 0.6 % (0-4); Lymphocytes # 1.8 K/mcL (0.6-4.6); Lymphocytes % 21.5 %; Mean Corpuscular HGB Conc 31.9 g/dL (31.6-35.5); Mean Corpuscular Hemoglobin 25.5 pg (28.0-33.3); Mean Corpuscular Volume 79.9 fL (83.0-100.0); Mean Platelet Volume 10.2 fL (9.4-12.4); Monocytes # 0.4 K/mcL (0.0-1.3); Monocytes % 4.3 %; Neutrophils # 6.1 K/mcL (1.6-8.9); Platelet Count 221 K/mcL (140-400); Red Blood Count 4.87 M/mcL (3.82-4.97); Red Cell Distribution Width 16.1 % (11.5-14.5)
[2018-07-16 10:33] LABS: INR 1.1; Prothrombin Time 12.3 Seconds (9.4-12.1)
[2018-07-16 10:47] LABS: BUN/Creatinine Ratio 12 (6-26); Blood Urea Nitrogen 8 mg/dL (6-20); C-Reactive Protein 36 mg/L (Less than 10); Calcium 8.6 mg/dL (8.6-10.3); Carbon Dioxide 20 mEq/L (23-29); Chloride 108 mEq/L (98-107); Glucose 203 mg/dL (70-105); Osmolality,Calculated 292 (280-300); Potassium 3.1 mEq/L (3.5-5.1); Sodium 139 mEq/L (136-145); eGFR For Non-African Americans > 60 (> 60)
[2018-07-16] MEDS ORDERED: Nitroglycerin 0.4 MG TAB.SUBL SL PRN (12:22)
[2018-07-16] MEDS ORDERED: Ipratropium/Albuterol Neb 3 ML IH PRN (12:22)
[2018-07-16] MEDS ORDERED: Acetaminophen 325 MG TABLET PO PRN (12:25)
[2018-07-16] MEDS ORDERED: Naloxone 0.4 MG/ML INJ IVP PRN (12:25)
--- NOTE | 2018-07-16 12:34 | Internal Med History&Physical ---
<Shanelle Gutierrez - Last Filed: 07/16/18 12:32> Date of Encounter: 07/16/18 Time of Encounter: 12:32 Internal Medicine - H&P: HPI Admitted From: Home Plans for Post Hospital Care: Home History of present illness: Ms. Strong is a 53-year-old female presenting to the ER due to concerns for her right third toe. The patient underwent what appears to be operative intervention in mid May of this year for hammertoe deformities of her second through fourth digits. She had rods placed that time. States that last week she saw her employment advisor to removed the ba from her toe. She states that she was doing well and was on doxycycline since Tuesday. Reports yesterday her toe started to change colors. Reports pain there as well as some bleeding from the site. She took a picture of her toe today and sent it to her employment advisor to urged her to come here for evaluation, antibiotics and admission. The patient is a diabetic without an extensive history of peripheral neuropathy. She reports subjective fevers and chills at home as well as nausea. At the ED, patient vital signs were stable besides a little tachycardia with heart rate 111, labs were unremarkable except slightly elevated lactated. X- ray on the right foot showed postsurgical change, no clear evidence of osteomyelitis. Patient received 1 dose of vancomycin and she will be admitted for further evaluation and treatment. Past Med Surg Social Fam HX - Past Medical History Medical history: arthritis, atrial fibrillation, COPD, CVA, diabetes, GERD, hyperlipidemia, hypertension, myocardial infarction, other Additional medical history: CAD. chronic back and leg pain. neuropathy legs/ feet Psychiatric history: bipolar, depression, previous psychiatric hospitalization - Past Surgical History Surgical History: angioplasty/stent, appendectomy, cholecystectomy, knee replacement, orthopedic, other Additional surgical history: uterine ablation. bladder stimulator. tonsillectomy. back surgery x5. right knee revision. LOOP monitor. colonoscopy - Social History Smoking Status: Current every day smoker Smokeless Tobacco Status: No Alcohol use: none Drug use: none - Family History Father Adopted: No Family Member Ethnicity: Non- Living Status: Sister Family Member Ethnicity: Non- Living Status: Still Living Grandfather Family Member Ethnicity: Non- Living Status: Hx Family Cardiac Disorders: Yes ([place], CAD) Mother Adopted: No Family Member Ethnicity: Non- Living Status: Hx Family Cardiac Disorders: Yes Hx Family Respiratory Disorders: Yes Hx Family Cancer: No Hx Family GI Disorders: No Hx Family Endocrine Disorder: No Hx Family Neuromuscular Disorders: No Hx Family Neurologic Disorders: No Hx Family HEENT Disorders: No Hx Family Autoimmune Disorders: No Internal Medicine - H&P: Meds Budesonide/Formoterol 160/4.5 [Symbicort 160/4.5] 2 puff IH BID 12/30/16 [ History] Insulin ASPART [NovoLOG] 2 - 10 unit SQ TIDWM 12/30/16 [History] Nitroglycerin [Nitrostat] 0.4 mg SL Q5M PRN 12/30/16 [History] Tiotropium [Spiriva] 1 puff IH DAILY 12/30/16 [History] Oxygen 2 l NS HS 03/15/17 [History] Quetiapine Fumarate [Seroquel] 300 mg PO HS 07/20/17 [History] Aspirin 81 mg PO DAILY #30 tab.chew 07/22/17 [Rx] Ipratropium/Albuterol Neb [Duoneb] 3 ml IH BID PRN 10/13/17 [History] Warfarin [Coumadin] 3 mg PO DAILY 10/31/17 [History] FLUoxetine HCl [Prozac] 80 mg PO DAILY 01/02/18 [History] Meclizine HCl [Verticalm] 25 mg PO BID PRN 01/02/18 [History] Pantoprazole Sodium [Protonix] 40 mg PO DAILY 02/13/18 [History] Tizanidine HCl 2 mg PO HS 03/28/18 [History] Topiramate [Topamax] 50 mg PO BID 03/28/18 [History] Gabapentin [Neurontin] 600 mg PO TID 05/06/18 [History] Oxycodone HCl/Acetaminophen [Percocet 5-325 mg Tablet] 1 tab PO Q8H 05/06/18 [ History] Atorvastatin [Lipitor] 40 mg PO HS 07/16/18 [History] Buspirone HCl [Buspar] 30 mg PO BID 07/16/18 [History] Doxycycline Hyclate [Doxycycline Hyclate] 100 mg PO BID 07/16/18 [History] Gentamicin Sulfate Cream [Gentamicin Sulfate] 1 applic TP BID 07/16/18 [History] Levalbuterol Tartrate [Xopenex Hfa] 2 puff IH Q6H 07/16/18 [History] Melatonin/Pyridoxine HCl (B6) [Melatonin 5 mg Tablet] 3 tab PO HS 07/16/18 [ History] Sucralfate [Carafate] 1 gm PO BID 07/16/18 [History] hydrOXYzine pamoate [HydrOXYzine Pamoate] 50 mg PO TID 07/16/18 [History] risperiDONE [Risperdal] 2 mg PO DAILY 07/16/18 [History] 3 Allergy/AdvReac Type Severity Reaction Status Date / Time baclofen Allergy Itching Verified 07/16/18 11:54 ciprofloxacin [From Cipro] Allergy Hives Verified 07/16/18 11:54 latex Allergy Rash Verified 07/16/18 11:54 Penicillins Allergy Hives Verified 07/16/18 11:54 prednisone Allergy Itching Verified 07/16/18 11:54 sulfamethoxazole Allergy Hives Verified 07/16/18 11:54 [From Bactrim] trimethoprim [From Bactrim] Allergy Hives Verified 07/16/18 11:54 cefdinir AdvReac Vomiting Verified 07/16/18 11:54 All Systems PM: A 10-system review of systems was performed and is negative for pertinent findings except as documented above in the HPI. Review of systems: REVIEW OF SYSTEMS: CONSTITUTIONAL: No weight loss, fever, chills, weakness or fatigue. HEENT: Eyes: No visual loss, blurred vision, double vision or yellow sclerae. Ears, Nose, Throat: No hearing loss, sneezing, congestion, runny nose or sore throat. SKIN: No rash or itching. CARDIOVASCULAR: No chest pain, chest pressure or chest discomfort. No palpitations or edema. RESPIRATORY: No shortness of breath, cough or sputum. GASTROINTESTINAL: No anorexia, nausea, vomiting or diarrhea. No abdominal pain or blood. GENITOURINARY: No dysuria, urgency, or frequency. NEUROLOGICAL: No headache, dizziness, syncope, paralysis, ataxia, numbness or tingling in the extremities. No change in bowel or bladder control. MUSCULOSKELETAL: see HPI. HEMATOLOGIC: No anemia, bleeding or bruising. LYMPHATICS: No enlarged nodes. No history of splenectomy. PSYCHIATRIC: No history of depression or anxiety. ENDOCRINOLOGIC: No reports of sweating, cold or heat intolerance. No polyuria or polydipsia. - Constitutional Vitals: Temp Pulse Resp BP Pulse Ox 97.9 F 96 18 105/52 98 07/16/18 09:49 07/16/18 10:30 07/16/18 10:30 07/16/18 10:30 07/16/18 10:30 General appearance: Present: cooperative, A&O X 3, answers questions appropriately Exam: PHYSICAL EXAMINATION: GENERAL APPEARANCE: The patient is alert, oriented and in no acute distress. HEENT: Head is normocephalic. The sinuses are nontender. Pupils are equal and reactive. The nares are patent. Oropharynx clear without lesions. NECK: Supple without lymphadenopathy. HEART: Regular rate and rhythm. LUNGS: No crackles or wheezes are heard. ABDOMEN: Soft, nontender, nondistended with good bowel sounds heard. Inguinal area is normal. EXTREMITIES: right 3rd toe swollen with a small blister on the dorsal side. part of the dorsal skin is black.. NEUROLOGICAL: Gross nonfocal. SKIN: Warm and dry without any rash. Internal Med - H&P Results - Labs CBC & Chem 7: 07/16/18 09:55 07/16/18 09:55 Labs: Short CBC 07/16/18 Range/Units 09:55 WBC 8.5 (4.3-11.1) K/mcL Hgb 12.4 (11.5-15.4) g/dL Hct 38.9 (35.3-44.9) % Plt Count 221 (140-400) K/mcL Neutrophils # 6.1 (1.6-8.9) K/mcL BMP 07/16/18 09:55 Sodium 139 Potassium 3.1 L Chloride 108 H Carbon Dioxide 20 L BUN 8 Creatinine 0.68 Glucose 203 H Calcium 8.6 - Impressions ITS Impressions Foot X-Ray 07/16/18 09:55 IMPRESSION: 1. Interval removal of the screw traversing the 3rd digit with bony findings as described above. Osteomyelitis cannot be excluded. There is 3rd digit soft tissue swelling. No subcutaneous gas identified. 2. Status post ORIF of the 2nd digit. No hardware complication. D/ / 07/16/2018 10:22:50 Park Garcia MD / hugo Interpreting Provider: Park Garcia MD - Assessment and plan (1) Hypokalemia Current Visit: Yes Status: Acute Assessment and plan: Potassium 3.1 this morning, 40 KCl ordered. We will repeat BMP in the morning. (2) Elevated lactic acid level Current Visit: Yes Status: Acute Assessment and plan: Lactate is 3.0 this morning, etiology to be determined, sepsis and tissue necrosis were suspected. Continue IV fluid and vancomycin, repeat lactate. (3) Bipolar disorder Current Visit: No Status: Chronic Assessment and plan: Mood stable, continue home medications. Qualifiers: Active/Remission status: in full remission Most recent bipolar episode type : mixed Qualified Code(s): F31.78 - Bipolar disorder, in full remission, most recent episode mixed (4) CVA (cerebral vascular accident) Current Visit: No Status: Acute Qualifiers: CVA mechanism: unspecified Qualified Code(s): I63.9 - Cerebral infarction, unspecified (5) Conversion disorder Current Visit: No Status: Chronic (6) Diabetic neuropathy Current Visit: No Status: Chronic Assessment and plan: Continue home medication. Qualifiers: Diabetes mellitus type: type 2 Diabetes mellitus complication detail: diabetic polyneuropathy Qualified Code(s): E11.42 - Type 2 diabetes mellitus with diabetic polyneuropathy (7) Migraine Current Visit: No Status: Chronic Assessment and plan: 2 headache right now, continue home medication. Qualifiers: Migraine type: without aura Status migrainosus presence: without status migrainosus Intractability: not intractable Qualified Code(s): G43.009 - Migraine without aura, not intractable, without status migrainosus (8) CAD (coronary artery disease) Current Visit: No Status: Chronic Assessment and plan: No chest pain, continue home medications. Qualifiers: Coronary Disease-Associated Artery/Lesion type: [place] artery [place] vs. transplanted heart: blackfeet heart Associated angina: without angina Qualified Code(s): I25.10 - Atherosclerotic heart disease of [place] coronary artery without angina pectoris (9) COPD (chronic obstructive pulmonary disease) Current Visit: No Status: Chronic Assessment and plan: No respiratory distress, continue home medications. Qualifiers: COPD type: unspecified COPD Qualified Code(s): J44.9 - Chronic obstructive pulmonary disease, unspecified (10) Chronic diastolic heart failure Current Visit: No Status: Chronic Assessment and plan: Euvolemic, continue home medications. (11) Diabetes mellitus type 2 in obese Current Visit: No Status: Chronic Assessment and plan: Continue home basal insulin, continue insulin sliding scale. (12) HLD (hyperlipidemia) Current Visit: No Status: Chronic Assessment and plan: Continue home medication. Qualifiers: Hyperlipidemia type: pure hypercholesterolemia Qualified Code(s): E78.00 - Pure hypercholesterolemia, unspecified; E78.0 - Pure hypercholesterolemia (13) HTN (hypertension) Current Visit: No Status: Chronic Assessment and plan: Continue monitoring BP, continue home medication. Qualifiers: Hypertension type: essential hypertension Qualified Code(s): I10 - Essential (primary) hypertension (14) Morbid obesity Current Visit: No Status: Chronic Assessment and plan: Weight reduction education. (15) PAF (paroxysmal atrial fibrillation) Current Visit: No Status: Chronic Assessment and plan: And 2 new home medication for rate control and anticoagulation with Coumadin. (16) Smoker Current Visit: No Status: Chronic Assessment and plan: Smoking cessation education. (17) DVT prophylaxis Current Visit: No Status: Acute Assessment and plan: Continue Coumadin. (18) Diabetic foot infection Current Visit: Yes Status: Acute Assessment and plan: 53-year-old female with multiple comorbidities, status post right foot hammertoe surgery, presented with right foot third digit pain, swelling, skin color change. She had hammertoe surgery in May, she just had several rods removed last week, found the right circumflex digit getting red, swelling with color change, was treated with tigecycline without improvement. Right third digit is red, swollen with black spot on the dorsal side. - Right third digit is concerning for infection, patient received 1 dose of vancomycin and the ED, blood culture obtained, continue IV vancomycin. - X-ray right toe showed postsurgical change, cannot rule out osteomyelitis. - Podiatry consult. - Time Spent With Patient Total time spent is greater than 50% in coordination of care (as documented) at patient's floor/unit and/or counseling patient: Greater than 35 minutes <Jeremy Mahmood - Last Filed: 07/16/18 13:48> Date of Encounter: 07/16/18 Internal Medicine - H&P: HPI History of present illness: Ms. Strong is a 53 year old female All Systems PM: A 10-system review of systems was performed and is negative for pertinent findings except as documented above in the HPI. - Constitutional Vitals: Temp Pulse Resp BP Pulse Ox 97.9 F 86 18 141/87 99 07/16/18 09:49 07/16/18 12:57 07/16/18 12:57 07/16/18 12:57 07/16/18 12:57 Internal Med - H&P Results - Labs CBC & Chem 7: 07/16/18 09:55 07/16/18 09:55 - Assessment and plan (1) Smoker Current Visit: No Status: Chronic (2) Diabetes mellitus type 2 in obese Current Visit: No Status: Chronic (3) COPD (chronic obstructive pulmonary disease) Current Visit: No Status: Chronic Qualifiers: COPD type: unspecified COPD Qualified Code(s): J44.9 - Chronic obstructive pulmonary disease, unspecified (4) Chronic diastolic heart failure Current Visit: No Status: Chronic (5) Hypokalemia Current Visit: Yes Status: Acute (6) CAD (coronary artery disease) Current Visit: No Status: Chronic Qualifiers: Coronary Disease-Associated Artery/Lesion type: [place] artery [place] vs. transplanted heart: [place] heart Associated angina: without angina Qualified Code(s): I25.10 - Atherosclerotic heart disease of [place] coronary artery without angina pectoris (7) PAF (paroxysmal atrial fibrillation) Current Visit: No Status: Chronic (8) CVA (cerebral vascular accident) Current Visit: No Status: Acute Qualifiers: CVA mechanism: unspecified Qualified Code(s): I63.9 - Cerebral infarction, unspecified (9) HTN (hypertension) Current Visit: No Status: Chronic Qualifiers: Hypertension type: essential hypertension Qualified Code(s): I10 - Essential (primary) hypertension (10) HLD (hyperlipidemia) Current Visit: No Status: Chronic Qualifiers: Hyperlipidemia type: pure hypercholesterolemia Qualified Code(s): E78.00 - Pure hypercholesterolemia, unspecified; E78.0 - Pure hypercholesterolemia (11) Diabetic neuropathy Current Visit: No Status: Chronic Qualifiers: Diabetes mellitus type: type 2 Diabetes mellitus complication detail: diabetic polyneuropathy Qualified Code(s): E11.42 - Type 2 diabetes mellitus with diabetic polyneuropathy (12) Morbid obesity Current Visit: No Status: Chronic (13) Migraine Current Visit: No Status: Chronic Qualifiers: Migraine type: without aura Status migrainosus presence: without status migrainosus Intractability: not intractable Qualified Code(s): G43.009 - Migraine without aura, not intractable, without status migrainosus (14) Conversion disorder Current Visit: No Status: Chronic (15) DVT prophylaxis Current Visit: No Status: Acute (16) Bipolar disorder Current Visit: No Status: Chronic Qualifiers: Active/Remission status: in full remission Most recent bipolar episode type : mixed Qualified Code(s): F31.78 - Bipolar disorder, in full remission, most recent episode mixed (17) Elevated lactic acid level Current Visit: Yes Status: Acute (18) Diabetic foot infection Current Visit: Yes Status: Acute - Time Spent With Patient Total time spent is greater than 50% in coordination of care (as documented) at patient's floor/unit and/or counseling patient: - Attending Attestation I have seen and examined the patient with TERMINAL MANAGER Matt Timmons and agree with his/ her assessment and plan. 53-year-old female with history of diabetes and atrial fibrillation on Coumadin presented with infected right third toe following arthrodesis of PIP joints from second to fourth toes back in May. Has been on doxycycline for the last 5 days without improvement. Afebrile, hemodynamically stable, right third toe appears dusky with small amount of purulent material but otherwise neurovascularly intact. Strong dorsalis pedis and posterior tibial pulses felt. Lab shows mildly elevated CRP and ESR. X- ray did not reveal any obvious evidence of osteo-myelitis. Started on IV vancomycin and follow-up with podiatry evaluation. Replete potassium. Jeremy Mahmood MD
[2018-07-16] MEDS: 0.9 % Sodium Chloride 1,000 ML IVC SCH (13:00)
[2018-07-16] MEDS: *HR* OxyCODONE/APAP 5/325 TABLET PO SCH ×2 (14:18→21:51)
[2018-07-16] MEDS: hydrOXYzine pamoate 25 MG CAPSULE PO SCH ×2 (14:19→21:50)
[2018-07-16] MEDS: Gabapentin 300 MG CAPSULE PO SCH ×2 (14:19→21:50)
[2018-07-16] MEDS: Levalbuterol 1 PUFF INHALER IH SCH ×2 (16:28→22:18)
[2018-07-16] MEDS ORDERED: D5% in Water 1,000 ML IVC PRN (16:58)
[2018-07-16] MEDS ORDERED: *HR* Dextrose 50 % in Water (Syg) 50 ML SYRINGE IVP PRN (16:58)
[2018-07-16] MEDS ORDERED: Dextrose Gel 15 GM/37.5 ML TUBE PO PRN ×2 (16:58)
[2018-07-16] MEDS ORDERED: *HR* Warfarin 3 MG TABLET PO SCH (18:00)
[2018-07-16] MEDS: tiZANidine 4 MG TABLET PO SCH (21:50)
[2018-07-16] MEDS: Topiramate 25 MG TABLET PO SCH (21:50)
[2018-07-16] MEDS: Sucralfate 1 GM TABLET PO SCH (21:50)
[2018-07-16] MEDS: Insulin LISPRO 300 UNITS/3 ML VIAL SQ SCH (21:51)
[2018-07-16] MEDS: Budesonide/Formoterol 160/4.5 1 PUFF INH IH SCH (22:18)
[2018-07-17] MEDS: 0.9 % Sodium Chloride 1,000 ML IVC SCH ×2 (01:35→13:36)
[2018-07-17 04:00] LABS: Basophils # 0.1 K/mcL (0.0-0.2); Basophils % 0.7 %; Eosinophils # 0.1 K/mcL (0.0-0.6); Eosinophils % 1.4 %; Hematocrit 32.6 % (35.3-44.9); Immature Granulocytes % 0.6 % (0-4); Lymphocytes % 27.6 %; Mean Corpuscular HGB Conc 32.2 g/dL (31.6-35.5); Mean Corpuscular Hemoglobin 26.1 pg (28.0-33.3); Mean Corpuscular Volume 80.9 fL (83.0-100.0); Mean Platelet Volume 10.3 fL (9.4-12.4); Monocytes # 0.4 K/mcL (0.0-1.3); Monocytes % 6.1 %; Neutrophils # 4.6 K/mcL (1.6-8.9); Platelet Count 194 K/mcL (140-400); Red Blood Count 4.03 M/mcL (3.82-4.97); Red Cell Distribution Width 16.2 % (11.5-14.5); Segmented Neutrophils % 63.6 %
[2018-07-17 04:04] LABS: Hemoglobin 10.5 g/dL (11.5-15.4)
[2018-07-17 04:07] LABS: Prothrombin Time 11.8 Seconds (9.4-12.1)
[2018-07-17] MEDS: Levalbuterol 1 PUFF INHALER IH SCH ×4 (04:14→21:55)
[2018-07-17 04:20] LABS: Alanine Aminotransferase 29 Units/L (7-52); Albumin 3.1 g/dL (3.5-5.7); Albumin/Globulin Ratio 1.6 (1.1-2.2); Alkaline Phosphatase 86 Units/L (34-104); Aspartate Amino Transferase 23 Units/L (13-39); BUN/Creatinine Ratio 13 (6-26); Bilirubin,Total 0.2 mg/dL (0.3-1.0); Blood Urea Nitrogen 9 mg/dL (6-20); Carbon Dioxide 23 mEq/L (23-29); Chloride 110 mEq/L (98-107); Globulin 1.9 g/dL (2.4-3.5); Glucose 175 mg/dL (70-105); Osmolality,Calculated 291 (280-300); Potassium 3.5 mEq/L (3.5-5.1); Sodium 139 mEq/L (136-145); eGFR For Non-African Americans > 60 (> 60)
[2018-07-17] MEDS: *HR* OxyCODONE/APAP 5/325 TABLET PO SCH ×2 (05:16→13:19)
[2018-07-17] MEDS: Insulin LISPRO 300 UNITS/3 ML VIAL SQ SCH ×4 (08:15→21:21)
[2018-07-17] MEDS: Gabapentin 300 MG CAPSULE PO SCH ×3 (09:37→21:28)
[2018-07-17] MEDS: Topiramate 25 MG TABLET PO SCH ×2 (09:37→21:28)
[2018-07-17] MEDS: hydrOXYzine pamoate 25 MG CAPSULE PO SCH ×3 (09:37→21:28)
[2018-07-17] MEDS: Aspirin 81 MG TAB.CHEW PO SCH (09:37)
[2018-07-17] MEDS: FLUoxetine 20 MG CAPSULE PO SCH (09:37)
[2018-07-17] MEDS: Sucralfate 1 GM TABLET PO SCH ×2 (09:37→21:28)
[2018-07-17] MEDS: risperiDONE 1 MG TABLET PO SCH (09:38)
[2018-07-17] MEDS: Budesonide/Formoterol 160/4.5 1 PUFF INH IH SCH ×2 (10:51→21:46)
[2018-07-17] MEDS: Tiotropium 18 MCG inhalation IH SCH (10:52)
--- NOTE | 2018-07-17 16:43 | Podiatry Consult Note ---
Date of Encounter: 07/17/18 Time of Encounter: 12:00 Assessment and Plan (1) Toe necrosis Current visit: Yes Status: Acute Assessment: Possible ichemia of toe #3 right Plan Assessed at bedside today Will order BRI with TCP02 to assess blood flow Pending results consider vascular consult Continue current antibiotics Cleansed with saline, painted with betadine, adaptic 4x4 and dry bulk dressing Will continue to monitor and determine plan after BRI's have been obtained. Xray negative for osseous involvement Foot X-Ray 07/16/18 09:55 IMPRESSION: 1. Interval removal of the screw traversing the 3rd digit with bony findings as described above. Osteomyelitis cannot be excluded. There is 3rd digit soft tissue swelling. No subcutaneous gas identified. 2. Status post ORIF of the 2nd digit. No hardware complication. D/ / 07/16/2018 10:22:50 Park Garcia MD / hugo Interpreting Provider: Park Garcia MD History of Present Illness HPI: Ms. Strong is a 53 year old female with PMH of arthritis, atrial fibrillation, COPD, CVA, diabetes, GERD, hyperlipidemia, hypertension, myocardial infarctionwho underwent PIPJ arthrodesis toes 2,3,4 right foot on 05/24 with . Patient was last seen in office and wires removed last week. Patient reports that yesterday she started to have subjective weakness and dizziness and toe #3 right started to turn dusky. Patient states she has minimal pain. States toe has worsened in appearance over the past 24 hours. she is a current smoker, states 1/2 pack to 1 pack daily. Patient denies any known injury to toe. Patient states she has chills. Denies any known fevers, n/v or flu like symptoms. Denies any calf pain or sob. Past Med Surg Social Fam HX - Past Medical History Medical history: arthritis, atrial fibrillation, COPD, CVA, diabetes, GERD, hyperlipidemia, hypertension, myocardial infarction, other Additional medical history: CAD. chronic back and leg pain. neuropathy legs/ feet Psychiatric history: bipolar, depression, previous psychiatric hospitalization - Past Surgical History Surgical History: angioplasty/stent, appendectomy, cholecystectomy, knee replacement, orthopedic, other Additional surgical history: uterine ablation. bladder stimulator. tonsillectomy. back surgery x5. right knee revision. LOOP monitor. colonoscopy - Social History Smoking Status: Current every day smoker Smokeless Tobacco Status: No Alcohol use: none Drug use: none - Family History Father Adopted: No Family Member Ethnicity: Non- Living Status: Sister Family Member Ethnicity: Non- Living Status: Still Living Grandfather Family Member Ethnicity: Non- Living Status: Hx Family Cardiac Disorders: Yes ([place], CAD) Mother Adopted: No Family Member Ethnicity: Non- Living Status: Hx Family Cardiac Disorders: Yes Hx Family Respiratory Disorders: Yes Hx Family Cancer: No Hx Family GI Disorders: No Hx Family Endocrine Disorder: No Hx Family Neuromuscular Disorders: No Hx Family Neurologic Disorders: No Hx Family HEENT Disorders: No Hx Family Autoimmune Disorders: No Medications and Allergies Budesonide/Formoterol 160/4.5 [Symbicort 160/4.5] 2 puff IH BID 12/30/16 [ History] Insulin ASPART [NovoLOG] 2 - 10 unit SQ TIDWM 12/30/16 [History] Nitroglycerin [Nitrostat] 0.4 mg SL Q5M PRN 12/30/16 [History] Tiotropium [Spiriva] 1 puff IH DAILY 12/30/16 [History] Oxygen 2 l NS HS 03/15/17 [History] Quetiapine Fumarate [Seroquel] 300 mg PO HS 07/20/17 [History] Aspirin 81 mg PO DAILY #30 tab.chew 07/22/17 [Rx] Ipratropium/Albuterol Neb [Duoneb] 3 ml IH BID PRN 10/13/17 [History] Warfarin [Coumadin] 3 mg PO DAILY 10/31/17 [History] FLUoxetine HCl [Prozac] 80 mg PO DAILY 01/02/18 [History] Meclizine HCl [Verticalm] 25 mg PO BID PRN 01/02/18 [History] Pantoprazole Sodium [Protonix] 40 mg PO DAILY 02/13/18 [History] Tizanidine HCl 2 mg PO HS 03/28/18 [History] Topiramate [Topamax] 50 mg PO BID 03/28/18 [History] Gabapentin [Neurontin] 600 mg PO TID 05/06/18 [History] Oxycodone HCl/Acetaminophen [Percocet 5-325 mg Tablet] 1 tab PO Q8H PRN [History] Atorvastatin [Lipitor] 40 mg PO HS 07/16/18 [History] Buspirone HCl [Buspar] 30 mg PO BID 07/16/18 [History] Doxycycline Hyclate [Doxycycline Hyclate] 100 mg PO BID 07/16/18 [History] Gentamicin Sulfate Cream [Gentamicin Sulfate] 1 applic TP BID 07/16/18 [History] Levalbuterol Tartrate [Xopenex Hfa] 2 puff IH Q6H 07/16/18 [History] Melatonin/Pyridoxine HCl (B6) [Melatonin 5 mg Tablet] 3 tab PO HS 07/16/18 [ History] Sucralfate [Carafate] 1 gm PO BID 07/16/18 [History] hydrOXYzine pamoate [HydrOXYzine Pamoate] 50 mg PO TID 07/16/18 [History] risperiDONE [Risperdal] 2 mg PO DAILY 07/16/18 [History] 3 Allergy/AdvReac Type Severity Reaction Status Date / Time baclofen Allergy Itching Verified 07/16/18 11:54 ciprofloxacin [From Cipro] Allergy Hives Verified 07/16/18 11:54 latex Allergy Rash Verified 07/16/18 11:54 Penicillins Allergy Hives Verified 07/16/18 11:54 prednisone Allergy Itching Verified 07/16/18 11:54 sulfamethoxazole Allergy Hives Verified 07/16/18 11:54 [From Bactrim] trimethoprim [From Bactrim] Allergy Hives Verified 07/16/18 11:54 cefdinir AdvReac Vomiting Verified 07/16/18 11:54 All Systems Reviewed: as per hpi Physical Exam - Constitutional Vitals: Temp Pulse Resp BP Pulse Ox 98.1 F 94 16 151/85 94 07/17/18 14:05 07/17/18 14:05 07/17/18 16:00 07/17/18 14:05 07/17/18 16:00 Exam: Awake, alert and oriented Minimal sensation to light touch to BLE, intact to moderate touch. Muscle strength 5/5 and equal bilaterally DP/PT pulses faint, warm toes toe tibia, toe #3 right slightly cool, cap refill 4-5 seconds, all other toes <3 seconds. No calf pain with manual compression There is appearance of necrosis of dorsal aspect of toe #3 right which is extending along plantar aspect , toe remains slightly warm and necrosis does appear superficial. There is scant serous drainage from toe. SUrrounding edema erythema and warmth. No ascending celluiltis noted, edema warmth and erythema is only localized. Results - Labs Result Diagrams: 07/18/18 09:21 07/18/18 09:21 Labs: Abnormal lab results Hgb 10.5 g/dL (11.5-15.4) L D 07/17/18 03:41 Hct 32.6 % (35.3-44.9) L 07/17/18 03:41 MCV 80.9 fL (83.0-100.0) L 07/17/18 03:41 MCH 26.1 pg (28.0-33.3) L 07/17/18 03:41 RDW 16.2 % (11.5-14.5) H 07/17/18 03:41 ESR 21 mm/hr (0-15) H 07/16/18 09:55 Chloride 110 mEq/L (98-107) H 07/17/18 03:41 Glucose 175 mg/dL (70-105) H 07/17/18 03:41 POC Glucose 130 mg/dL (70-99) H 07/17/18 07:24 Calcium 8.0 mg/dL (8.6-10.3) L 07/17/18 03:41 Total Bilirubin 0.2 mg/dL (0.3-1.0) L 07/17/18 03:41 C-Reactive Protein 36 mg/L (Less than 10) H 07/16/18 09:55 Serum Total Protein 5.0 g/dL (6.4-8.9) L 07/17/18 03:41 Albumin 3.1 g/dL (3.5-5.7) L 07/17/18 03:41 Globulin 1.9 g/dL (2.4-3.5) L 07/17/18 03:41 H & H 07/17/18 Range/Units 03:41 Hgb 10.5 L D (11.5-15.4) g/dL Hct 32.6 L (35.3-44.9) % All other labs normal. Consult Discharge Plan - Plan Referrals: Maurisio Ward MD [Primary Care Provider] -
[2018-07-17] MEDS ORDERED: *HR* Warfarin 5 MG TABLET PO ONE (18:00)
[2018-07-17] MEDS ORDERED: Warfarin perPT PO PRN (18:00)
--- NOTE | 2018-07-17 21:24 | Internal Med Progress Note ---
Hospitalist Progress Note - Encounter Date of Encounter: 07/17/18 Time of Encounter: 21:21 - Subjective Interval History: Pt states she feels nauseous and having some chills. Deneis fever. Denies CP or SOB. Denies diarrhea or constipation. - Exam Vitals: Temp Pulse Resp BP Pulse Ox 98.5 F 93 16 152/81 97 07/17/18 19:13 07/17/18 19:13 07/17/18 19:13 07/17/18 19:13 07/17/18 19:13 Exam: PHYSICAL EXAMINATION: GENERAL APPEARANCE: The patient is alert, oriented and in no acute distress. HEENT: Head is normocephalic. The sinuses are nontender. Pupils are equal and reactive. The nares are patent. Oropharynx clear without lesions. NECK: Supple without lymphadenopathy. HEART: Regular rate and rhythm. LUNGS: No crackles or wheezes are heard. ABDOMEN: Soft, nontender, nondistended with good bowel sounds heard. Inguinal area is normal. EXTREMITIES: right 3rd toe swollen with a small blister on the dorsal side. part of the dorsal skin is black.. NEUROLOGICAL: Gross nonfocal. SKIN: Warm and dry without any rash. - Assessment and Plan (1) Diabetic foot infection Current Visit: Yes Status: Acute Assessment and Plan: - Right third digit is concerning for infection, patient received 1 dose of vancomycin and the ED, blood culture obtained, continue IV vancomycin. - X-ray right toe showed postsurgical change, cannot rule out osteomyelitis. - Podiatry consulting and checking BRI due to toe necrosis. (2) Diabetes mellitus type 2 in obese Current Visit: No Status: Chronic Assessment and Plan: Continue home basal insulin, continue insulin sliding scale. (3) COPD (chronic obstructive pulmonary disease) Current Visit: No Status: Chronic Assessment and Plan: Resumed home symbicort. Not in exacerbation (4) Hypokalemia Current Visit: Yes Status: Acute Assessment and Plan: Potassium 3.1 this morning, 40 KCl ordered. K 3.5. (5) CAD (coronary artery disease) Current Visit: No Status: Chronic Assessment and Plan: ASA and Atorvastatin (6) PAF (paroxysmal atrial fibrillation) Current Visit: No Status: Chronic Assessment and Plan: Rate controlled and anticoagulation with Coumadin. States PCP took her off BB due to low BP. SBP in 150's. as on Metorolol 25 mg BId, will start with Metoprolol 12.5 mg BID. Will monitor BP and order BP checks before giving medication. (7) CVA (cerebral vascular accident) Current Visit: No Status: Acute (8) HTN (hypertension) Current Visit: No Status: Chronic Assessment and Plan: No BP meds listed on home med lsit. Will continue to monitor. Will review home meds with pt. (9) HLD (hyperlipidemia) Current Visit: No Status: Chronic Assessment and Plan: Atorvastatin (10) Diabetic neuropathy Current Visit: No Status: Chronic Assessment and Plan: Gabapentin 600 mg TID (11) Morbid obesity Current Visit: No Status: Chronic Assessment and Plan: Weight reduction education. (12) Bipolar disorder Current Visit: No Status: Chronic Assessment and Plan: Mood stable, continue home medications. (13) Elevated lactic acid level Current Visit: Yes Status: Acute Assessment and Plan: Corrected and down to 2.0. Lactate is 3.5, likely due to sepsis and tissue necrosis were suspected. Continue IV fluid and vancomycin (14) Smoker Current Visit: No Status: Chronic Assessment and Plan: Smoking cessation education. DVT Prophylaxis: Warfarin - Summary of Assessment and Plan Summary of Assessment and Plan: 53-year-old female with multiple comorbidities, status post right foot hammertoe surgery, presented with right foot third digit pain, swelling, skin color change. She had hammertoe surgery in May, she just had several rods removed last week, found the right circumflex digit getting red, swelling with color change, was treated with tigecycline without improvement. Right third digit is red, swollen with black spot on the dorsal side. - Time Spent with Patient Total time spent is greater than 50% in coordination of care (as documented) at patient's floor/unit and/or counseling patient: less than 15 minutes Internal Medicine: Result - Labs CBC & Chem 7: 07/17/18 03:41 07/17/18 03:41 Labs: Short CBC 07/17/18 Range/Units 03:41 WBC 7.2 (4.3-11.1) K/mcL Hgb 10.5 L D (11.5-15.4) g/dL Hct 32.6 L (35.3-44.9) % Plt Count 194 (140-400) K/mcL Neutrophils # 4.6 (1.6-8.9) K/mcL BMP 07/17/18 03:41 Sodium 139 Potassium 3.5 Chloride 110 H Carbon Dioxide 23 BUN 9 Creatinine 0.68 Glucose 175 H Calcium 8.0 L Liver Function 07/17/18 Range/Units 03:41 Total Bilirubin 0.2 L (0.3-1.0) mg/dL AST 23 (13-39) Units/L ALT 29 (7-52) Units/L Alkaline Phosphatase 86 (34-104) Units/L Albumin 3.1 L (3.5-5.7) g/dL - ABG Interpretation ABG results: PT/INR, D-dimer PT 11.8 Seconds (9.4-12.1) 07/17/18 03:41 Consult Discharge Plan - Plan Referrals: Maurisio Ward MD [Primary Care Provider] - (3) COPD (chronic obstructive pulmonary disease) Qualifiers: COPD type: unspecified COPD Qualified Code(s): J44.9 - Chronic obstructive pulmonary disease, unspecified (5) CAD (coronary artery disease) Qualifiers: Coronary Disease-Associated Artery/Lesion type: [place] artery [place] vs. transplanted heart: [place] heart Associated angina: without angina Qualified Code(s): I25.10 - Atherosclerotic heart disease of [place] coronary artery without angina pectoris (7) CVA (cerebral vascular accident) Qualifiers: CVA mechanism: unspecified Qualified Code(s): I63.9 - Cerebral infarction, unspecified (8) HTN (hypertension) Qualifiers: Hypertension type: essential hypertension Qualified Code(s): I10 - Essential (primary) hypertension (9) HLD (hyperlipidemia) Qualifiers: Hyperlipidemia type: pure hypercholesterolemia Qualified Code(s): E78.00 - Pure hypercholesterolemia, unspecified; E78.0 - Pure hypercholesterolemia (10) Diabetic neuropathy Qualifiers: Diabetes mellitus type: type 2 Diabetes mellitus complication detail: diabetic polyneuropathy Qualified Code(s): E11.42 - Type 2 diabetes mellitus with diabetic polyneuropathy (12) Bipolar disorder Qualifiers: Active/Remission status: in full remission Most recent bipolar episode type: mixed Qualified Code(s): F31.78 - Bipolar disorder, in full remission, most recent episode mixed
[2018-07-17] MEDS: *HR* OxyCODONE/APAP 5/325 TABLET PO PRN (21:27)
[2018-07-17] MEDS: tiZANidine 4 MG TABLET PO SCH (21:28)
[2018-07-17] MEDS: Melatonin 3 MG TABLET PO SCH (21:28)
[2018-07-18 01:09] LABS: INR 1.1; Prothrombin Time 12.9 Seconds (9.4-12.1)
[2018-07-18] MEDS: Levalbuterol 1 PUFF INHALER IH SCH ×4 (03:57→21:51)
[2018-07-18] MEDS: Aspirin 81 MG TAB.CHEW PO SCH (09:30)
[2018-07-18] MEDS: Topiramate 25 MG TABLET PO SCH ×2 (09:30→21:39)
[2018-07-18] MEDS: Gabapentin 300 MG CAPSULE PO SCH ×3 (09:30→21:38)
[2018-07-18] MEDS: Sucralfate 1 GM TABLET PO SCH ×2 (09:30→21:37)
[2018-07-18] MEDS: FLUoxetine 20 MG CAPSULE PO SCH (09:31)
[2018-07-18] MEDS: hydrOXYzine pamoate 25 MG CAPSULE PO SCH ×3 (09:31→21:40)
[2018-07-18] MEDS: risperiDONE 1 MG TABLET PO SCH (09:31)
[2018-07-18] MEDS: Insulin LISPRO 300 UNITS/3 ML VIAL SQ SCH ×3 (09:38→18:38)
[2018-07-18] MEDS: *HR* OxyCODONE/APAP 5/325 TABLET PO PRN ×2 (09:39→17:56)
[2018-07-18 09:41] LABS: Basophils % 0.4 %; Eosinophils # 0.1 K/mcL (0.0-0.6); Eosinophils % 0.9 %; Hemoglobin 11.6 g/dL (11.5-15.4); Immature Granulocytes % 0.8 % (0-4); Lymphocytes # 1.4 K/mcL (0.6-4.6); Lymphocytes % 15.5 %; Mean Corpuscular HGB Conc 32.2 g/dL (31.6-35.5); Mean Corpuscular Hemoglobin 25.6 pg (28.0-33.3); Mean Corpuscular Volume 79.3 fL (83.0-100.0); Monocytes # 0.4 K/mcL (0.0-1.3); Monocytes % 3.9 %; Neutrophils # 7.3 K/mcL (1.6-8.9); Platelet Count 209 K/mcL (140-400); Red Blood Count 4.54 M/mcL (3.82-4.97); Red Cell Distribution Width 16.2 % (11.5-14.5); Segmented Neutrophils % 78.5 %
[2018-07-18] MEDS: Budesonide/Formoterol 160/4.5 1 PUFF INH IH SCH ×2 (09:50→21:50)
[2018-07-18] MEDS: Tiotropium 18 MCG inhalation IH SCH (09:51)
[2018-07-18 10:05] LABS: BUN/Creatinine Ratio 13 (6-26); Blood Urea Nitrogen 8 mg/dL (6-20); Calcium 9.1 mg/dL (8.6-10.3); Carbon Dioxide 22 mEq/L (23-29); Chloride 106 mEq/L (98-107); Glucose 170 mg/dL (70-105); Osmolality,Calculated 290 (280-300); Potassium 3.7 mEq/L (3.5-5.1); Sodium 139 mEq/L (136-145); eGFR For Non-African Americans > 60 (> 60)
--- NOTE | 2018-07-18 12:34 | Podiatry Progress Note ---
Date of Encounter: 07/18/18 Time of Encounter: 12:00 Subjective Interval history: S: says her toe was looking really good after her last appt until this past tuesday it looked a little dark. She came to the hospital and subsequently got admitted through the ER. Awaiting BRI/PVR and TCPO2 studies. O: right 3rd digit is warm to touch. dorsal aspect of the digit does have some necrosis. no purulence expressed. mild erythema of of the digit which does appear decreased from the last time I saw her in the office. diminished protective sensation consistent with neuropathy A: right 3rd toe infection/cellulitis P: await vascular studies the toe does have some bleeding not active and it is warm to touch like the adjacent digits. she does have a soft tissue infection. wbc remains stable no left shift, ESR and CRP are not elevated to make me think she would have ostemyelitis. An MRI with her recent surgery would be useless. Continue broad spectrum antibiotics. Await non-invasive vascular results. will continue to follow. Objective - Vital Signs Vital Signs: Vital Signs Temp Pulse Resp BP Pulse Ox 07/18/18 09:52 17 98 07/18/18 07:54 98.2 F 91 16 130/84 97 07/18/18 03:57 97.8 F 88 16 126/84 100 07/17/18 21:46 15 98 07/17/18 19:13 98.5 F 93 16 152/81 97 07/17/18 16:00 16 94 07/17/18 14:05 98.1 F 94 16 151/85 99 Intake and Output 07/17/18 07/18/18 07/18/18 23:59 07:59 15:59 Intake Total 530 / 530 0 / 0 240 / 240 Output Total 1150 / 1150 1200 / 1200 Balance -620 / -620 -1200 / -1200 240 / 240 Intake: IV Fluids 50 / 50 0.9 % Sodium Chloride 1,000 ML 50 / 50 @ 100 mls/hr IVC .Q10H SD Rx#: [id number] Oral 480 / 480 0 / 0 240 / 240 Output: Urine 1150 / 1150 1200 / 1200 Other: Meal Dinner Breakfast Percent of Meal Consumed 100% 100% Weight 106.5 kg Blood Glucose* 156 132 Patient Weight 07/18/18 23:59 Weight 106.5 kg - Lab Result Diagrams: 07/18/18 09:21 07/18/18 09:21 Labs: Abnormal lab results MCV 79.3 fL (83.0-100.0) L 07/18/18 09:21 MCH 25.6 pg (28.0-33.3) L 07/18/18 09:21 RDW 16.2 % (11.5-14.5) H 07/18/18 09:21 ESR 21 mm/hr (0-15) H 07/16/18 09:55 PT 12.9 Seconds (9.4-12.1) H 07/18/18 00:43 Carbon Dioxide 22 mEq/L (23-29) L 07/18/18 09:21 Glucose 170 mg/dL (70-105) H 07/18/18 09:21 POC Glucose 144 mg/dL (70-99) H 07/17/18 20:28 Total Bilirubin 0.2 mg/dL (0.3-1.0) L 07/17/18 03:41 C-Reactive Protein 36 mg/L (Less than 10) H 07/16/18 09:55 Serum Total Protein 5.0 g/dL (6.4-8.9) L 07/17/18 03:41 Albumin 3.1 g/dL (3.5-5.7) L 07/17/18 03:41 Globulin 1.9 g/dL (2.4-3.5) L 07/17/18 03:41 Vancomycin Trough 12 mcg/mL (5-10) H 07/18/18 00:43 Consult Discharge Plan - Plan Referrals: Maurisio Ward MD [Primary Care Provider] -
[2018-07-18] MEDS: Cefepime HCl 2,000 MG in Water for inj. (sterile) 20 ML 20 ML IVP SCH (17:56)
[2018-07-18] MEDS ORDERED: *HR* Warfarin 5 MG TABLET PO ONE (18:00)
--- NOTE | 2018-07-18 18:05 | Internal Med Progress Note ---
Hospitalist Progress Note - Encounter Date of Encounter: 07/18/18 Time of Encounter: 11:00 - Subjective Interval History: Patient with no improvement in right third digit necrosis on IV vancomycin IV Zosyn was added today due to for concerns for Pseudomonas with patient's history of diabetes and location of necrotic toe Waiting results of BRI for further recommendations from podiatry - Exam Vitals: Temp Pulse Resp BP Pulse Ox 98.1 F 92 18 159/70 98 07/18/18 15:50 07/18/18 15:50 07/18/18 16:05 07/18/18 15:50 07/18/18 16:05 Exam: Gen.: Nonacute distress, alert and oriented 3 ENT: Mucosal membranes moist Respiratory: Lungs are clear to auscultation bilaterally without any wheezing rhonchi or rales Cardiovascular: Normal S1 and S2 regular rate rhythm no murmurs rubs or gallops Abdomen: Soft, nontender and nondistended with positive bowel sounds Extremities: Right necrotic third toe Skin: Normal color - Assessment and Plan (1) Diabetic foot infection Current Visit: Yes Status: Acute Assessment and Plan: Right third digit is concerning for infection IV Zosyn added today due to for concerns for Pseudomonas and continuing IV vancomycin. Awaiting BRI results for further recommendations from podiatry (2) Diabetes mellitus type 2 in obese Current Visit: No Status: Chronic Assessment and Plan: Continue home basal insulin, continue insulin sliding scale. (3) Diabetic neuropathy Current Visit: No Status: Chronic Assessment and Plan: Gabapentin 600 mg TID (4) Hypokalemia Current Visit: Yes Status: Acute Assessment and Plan: Resolved; continue replacements as needed (5) COPD (chronic obstructive pulmonary disease) Current Visit: No Status: Chronic Assessment and Plan: Stable; continue Symbicort (6) CAD (coronary artery disease) Current Visit: No Status: Chronic Assessment and Plan: Stable; continue ASA and Atorvastatin (7) PAF (paroxysmal atrial fibrillation) Current Visit: No Status: Chronic Assessment and Plan: Rate controlled on beta lizzette and anticoagulation with Coumadin. (8) HTN (hypertension) Current Visit: No Status: Chronic Assessment and Plan: Continue beta lizzette (9) HLD (hyperlipidemia) Current Visit: No Status: Chronic Assessment and Plan: Continue statin (10) Morbid obesity Current Visit: No Status: Chronic Assessment and Plan: Lifestyle modifications (11) Bipolar disorder Current Visit: No Status: Chronic Assessment and Plan: Mood stable, continue home medications. (12) Smoker Current Visit: No Status: Chronic Assessment and Plan: Smoking cessation education. - Time Spent with Patient Total time spent is greater than 50% in coordination of care (as documented) at patient's floor/unit and/or counseling patient: Internal Medicine: Result - Labs CBC & Chem 7: 07/18/18 09:21 07/18/18 09:21 Labs: Short CBC 07/18/18 Range/Units 09:21 WBC 9.2 (4.3-11.1) K/mcL Hgb 11.6 (11.5-15.4) g/dL Hct 36.0 (35.3-44.9) % Plt Count 209 (140-400) K/mcL Neutrophils # 7.3 (1.6-8.9) K/mcL BMP 07/18/18 09:21 Sodium 139 Potassium 3.7 Chloride 106 Carbon Dioxide 22 L BUN 8 Creatinine 0.61 Glucose 170 H Calcium 9.1 - ABG Interpretation ABG results: PT/INR, D-dimer PT 12.9 Seconds (9.4-12.1) H 07/18/18 00:43 Consult Discharge Plan - Plan Referrals: Maurisio Ward MD [Primary Care Provider] - (3) Diabetic neuropathy Qualifiers: Diabetes mellitus type: type 2 Diabetes mellitus complication detail: diabetic polyneuropathy Qualified Code(s): E11.42 - Type 2 diabetes mellitus with diabetic polyneuropathy (5) COPD (chronic obstructive pulmonary disease) Qualifiers: COPD type: unspecified COPD Qualified Code(s): J44.9 - Chronic obstructive pulmonary disease, unspecified (6) CAD (coronary artery disease) Qualifiers: Coronary Disease-Associated Artery/Lesion type: [place] artery [place] vs. transplanted heart: [place] heart Associated angina: without angina Qualified Code(s): I25.10 - Atherosclerotic heart disease of [place] coronary artery without angina pectoris (8) HTN (hypertension) Qualifiers: Hypertension type: essential hypertension Qualified Code(s): I10 - Essential (primary) hypertension (9) HLD (hyperlipidemia) Qualifiers: Hyperlipidemia type: pure hypercholesterolemia Qualified Code(s): E78.00 - Pure hypercholesterolemia, unspecified; E78.0 - Pure hypercholesterolemia (11) Bipolar disorder Qualifiers: Active/Remission status: in full remission Most recent bipolar episode type: mixed Qualified Code(s): F31.78 - Bipolar disorder, in full remission, most recent episode mixed
[2018-07-18] MEDS: Melatonin 3 MG TABLET PO SCH (21:37)
[2018-07-18] MEDS: tiZANidine 4 MG TABLET PO SCH (21:37)
[2018-07-18] MEDS ORDERED: Acetaminophen 325 MG TABLET PO ONE (22:15)
[2018-07-18] MEDS ORDERED: traMADol 50 MG TABLET PO ONE (22:15)
[2018-07-19] MEDS: Levalbuterol 1 PUFF INHALER IH SCH ×4 (03:40→21:26)
[2018-07-19] MEDS: Cefepime HCl 2,000 MG in Water for inj. (sterile) 20 ML 20 ML IVP SCH ×2 (05:28→17:48)
[2018-07-19] MEDS: Insulin LISPRO 300 UNITS/3 ML VIAL SQ SCH ×5 (07:48→21:12)
[2018-07-19 09:11] LABS: INR 1.3; Prothrombin Time 14.7 Seconds (9.4-12.1)
[2018-07-19] MEDS: Topiramate 25 MG TABLET PO SCH ×2 (09:38→21:07)
[2018-07-19] MEDS: Gabapentin 300 MG CAPSULE PO SCH ×3 (09:38→21:08)
[2018-07-19] MEDS: FLUoxetine 20 MG CAPSULE PO SCH (09:38)
[2018-07-19] MEDS: Sucralfate 1 GM TABLET PO SCH ×2 (09:38→21:07)
[2018-07-19] MEDS: hydrOXYzine pamoate 25 MG CAPSULE PO SCH ×3 (09:38→21:07)
[2018-07-19] MEDS: Aspirin 81 MG TAB.CHEW PO SCH (09:38)
[2018-07-19] MEDS: risperiDONE 1 MG TABLET PO SCH (09:38)
[2018-07-19] MEDS: Budesonide/Formoterol 160/4.5 1 PUFF INH IH SCH ×2 (10:26→21:26)
[2018-07-19] MEDS: Tiotropium 18 MCG inhalation IH SCH (10:28)
[2018-07-19 11:28] LABS: Basophils # 0.1 K/mcL (0.0-0.2); Basophils % 0.4 %; Eosinophils # 0.1 K/mcL (0.0-0.6); Eosinophils % 0.7 %; Hematocrit 35.3 % (35.3-44.9); Hemoglobin 11.5 g/dL (11.5-15.4); Lymphocytes # 1.5 K/mcL (0.6-4.6); Lymphocytes % 12.4 %; Mean Corpuscular HGB Conc 32.6 g/dL (31.6-35.5); Mean Corpuscular Hemoglobin 25.7 pg (28.0-33.3); Mean Platelet Volume 10.9 fL (9.4-12.4); Monocytes # 0.6 K/mcL (0.0-1.3); Neutrophils # 9.9 K/mcL (1.6-8.9); Platelet Count 235 K/mcL (140-400); Red Blood Count 4.47 M/mcL (3.82-4.97); Red Cell Distribution Width 16.6 % (11.5-14.5); Segmented Neutrophils % 80.5 %
[2018-07-19 11:49] LABS: BUN/Creatinine Ratio 21 (6-26); Blood Urea Nitrogen 12 mg/dL (6-20); Calcium 9.1 mg/dL (8.6-10.3); Carbon Dioxide 21 mEq/L (23-29); Chloride 107 mEq/L (98-107); Glucose 143 mg/dL (70-105); Osmolality,Calculated 288 (280-300); Potassium 4.2 mEq/L (3.5-5.1); Sodium 138 mEq/L (136-145); eGFR For Non-African Americans > 60 (> 60)
[2018-07-19] MEDS: *HR* OxyCODONE/APAP 5/325 TABLET PO PRN (16:22)
--- NOTE | 2018-07-19 16:38 | Podiatry Progress Note ---
Date of Encounter: 07/19/18 Time of Encounter: 16:00 - Assessment and Plan (1) Toe necrosis Current Visit: Yes Status: Acute Assessment: cellilitis vs ischemia of toe #3 right Plan Assessed at bedside today Dressing changed Wound cultures obtained - BRI shows adequate blood flow. Continue current antibiotics Cleansed with saline, painted with betadine, adaptic 4x4 and dry bulk dressing Xray negative for osseous involvement Monitor wbc- if continues to rise abimael plan for debridement of toe Foot X-Ray 07/16/18 09:55 IMPRESSION: 1. Interval removal of the screw traversing the 3rd digit with bony findings as described above. Osteomyelitis cannot be excluded. There is 3rd digit soft tissue swelling. No subcutaneous gas identified. 2. Status post ORIF of the 2nd digit. No hardware complication. D/ / 07/16/2018 10:22:50 Park Garcia MD / hugo Interpreting Provider: Park Garcia MD Subjective Interval history: Ms. Strong underwent PIPJ arthrodesis toes 2,3,4 right foot on 05/24 with . Patient was last seen in office and wires removed last week. Patient reports that yesterday she started to have subjective weakness and dizziness and toe #3 right started to turn dusky. Patient was admitted for monitoring and IV antibiotics. Denies any calf pain or sob. WBC today 12.3 temp 98.1 States at bedside that she does not feel good today at all. States she started chilling last night. Does appear flushed to assessment. Currently on vancomycin Objective - Vital Signs Vital Signs: Vital Signs Temp Pulse Resp BP Pulse Ox 07/19/18 15:49 18 96 07/19/18 14:33 98.4 F 94 15 144/85 95 07/19/18 11:19 98.5 F 78 16 115/79 92 07/19/18 10:28 18 97 07/19/18 08:01 98.2 F 89 16 139/75 96 07/19/18 04:17 98.3 F 83 15 110/73 96 07/19/18 03:44 18 98 07/18/18 21:50 16 98 07/18/18 19:41 98.6 F 96 14 136/78 97 Intake and Output 07/19/18 07/19/18 07/19/18 07:59 15:59 23:59 Intake Total 270 / 270 840 / 840 Output Total 0 / 0 200 / 200 Balance 270 / 270 640 / 640 Intake: IV Fluids 270 / 270 Maxipime 2,000 MG In Water for 20 / 20 inj. (sterile) 20 ML @ 300 mls/ hr IVP Q12HR SD Rx#:[id number] Vancocin 1,500 MG In 0.9 % 250 / 250 Sodium Chloride 250 ML @ 166.67 mls/hr IVPB Q12H SD Rx#: [id number] Oral 0 / 0 840 / 840 Output: Urine 0 / 0 200 / 200 Other: Meal Lunch Percent of Meal Consumed 100% Weight 106.8 kg Blood Glucose* 160 169 Patient Weight 07/19/18 23:59 Weight 106.8 kg - Exam Exam: Awake, alert and oriented- flushed to appearance- states she does not feel well Minimal sensation to light touch to BLE, intact to moderate touch. Muscle strength 5/5 and equal bilaterally DP/PT pulses faint, warm toes toe tibia, toe #3 right slightly cool, cap refill 4-5 seconds, all other toes <3 seconds. No calf pain with manual compression There is continued appearance of necrosis of dorsal aspect of toe #3 right which is extending along plantar aspect , necrosis to top of toe is drying, there is scant thick bloody drainage, There is darkening in appearance of necrosis. toe remains warm and necrosis does appear superficial. SUrrounding edema erythema and warmth to toe only. No ascending celluiltis noted, edema warmth and erythema is only localized. - Lab Result Diagrams: 07/20/18 09:32 07/20/18 09:32 Labs: Abnormal lab results WBC 12.3 K/mcL (4.3-11.1) H 07/19/18 10:05 MCV 79.0 fL (83.0-100.0) L 07/19/18 10:05 MCH 25.7 pg (28.0-33.3) L 07/19/18 10:05 RDW 16.6 % (11.5-14.5) H 07/19/18 10:05 Neutrophils # 9.9 K/mcL (1.6-8.9) H 07/19/18 10:05 ESR 21 mm/hr (0-15) H 07/16/18 09:55 PT 14.7 Seconds (9.4-12.1) H 07/19/18 08:36 Carbon Dioxide 21 mEq/L (23-29) L 07/19/18 10:05 Creatinine 0.57 mg/dL (0.60-1.20) L 07/19/18 10:05 Glucose 143 mg/dL (70-105) H 07/19/18 10:05 POC Glucose 169 mg/dL (70-99) H 07/19/18 16:05 Total Bilirubin 0.2 mg/dL (0.3-1.0) L 07/17/18 03:41 C-Reactive Protein 36 mg/L (Less than 10) H 07/16/18 09:55 Serum Total Protein 5.0 g/dL (6.4-8.9) L 07/17/18 03:41 Albumin 3.1 g/dL (3.5-5.7) L 07/17/18 03:41 Globulin 1.9 g/dL (2.4-3.5) L 07/17/18 03:41 Vancomycin Trough 12 mcg/mL (5-10) H 07/19/18 14:29 Consult Discharge Plan - Plan Referrals: Maurisio Ward MD [Primary Care Provider] -
[2018-07-19] MEDS ORDERED: *HR* Warfarin 4 MG TABLET PO ONE (18:00)
--- NOTE | 2018-07-19 19:44 | Internal Med Progress Note ---
Hospitalist Progress Note - Encounter Date of Encounter: 07/19/18 Time of Encounter: 11:00 - Subjective Interval History: Patient with no improvement in right third digit necrosis on IV vancomycin IV Zosyn was added today due to for concerns for Pseudomonas with patient's history of diabetes and location of necrotic toe - Exam Vitals: Temp Pulse Resp BP Pulse Ox 98.4 F 94 18 144/85 96 07/19/18 14:33 07/19/18 14:33 07/19/18 15:49 07/19/18 14:33 07/19/18 15:49 Exam: Gen.: Nonacute distress, alert and oriented 3 ENT: Mucosal membranes moist Respiratory: Lungs are clear to auscultation bilaterally without any wheezing rhonchi or rales Cardiovascular: Normal S1 and S2 regular rate rhythm no murmurs rubs or gallops Abdomen: Soft, nontender and nondistended with positive bowel sounds Extremities: Right necrotic third toe Skin: Normal color - Assessment and Plan (1) Diabetic foot infection Current Visit: Yes Status: Acute Assessment and Plan: Right third digit is concerning for infection IV Zosyn added today due to for concerns for Pseudomonas and continuing IV vancomycin. (2) Diabetes mellitus type 2 in obese Current Visit: No Status: Chronic Assessment and Plan: Continue home basal insulin, continue insulin sliding scale. (3) Diabetic neuropathy Current Visit: No Status: Chronic Assessment and Plan: Gabapentin 600 mg TID (4) Hypokalemia Current Visit: Yes Status: Acute Assessment and Plan: Resolved; continue replacements as needed (5) COPD (chronic obstructive pulmonary disease) Current Visit: No Status: Chronic Assessment and Plan: Stable; continue Symbicort (6) CAD (coronary artery disease) Current Visit: No Status: Chronic Assessment and Plan: Stable; continue ASA and Atorvastatin (7) PAF (paroxysmal atrial fibrillation) Current Visit: No Status: Chronic Assessment and Plan: Rate controlled on beta lizzette and anticoagulation with Coumadin. (8) HTN (hypertension) Current Visit: No Status: Chronic Assessment and Plan: Continue beta lizzette (9) HLD (hyperlipidemia) Current Visit: No Status: Chronic Assessment and Plan: Continue statin (10) Morbid obesity Current Visit: No Status: Chronic Assessment and Plan: Lifestyle modifications (11) Bipolar disorder Current Visit: No Status: Chronic Assessment and Plan: Mood stable, continue home medications. (12) Smoker Current Visit: No Status: Chronic Assessment and Plan: Smoking cessation education. - Time Spent with Patient Total time spent is greater than 50% in coordination of care (as documented) at patient's floor/unit and/or counseling patient: Internal Medicine: Result - Labs CBC & Chem 7: 07/19/18 10:05 07/19/18 10:05 Labs: Short CBC 07/19/18 Range/Units 10:05 WBC 12.3 H (4.3-11.1) K/mcL Hgb 11.5 (11.5-15.4) g/dL Hct 35.3 (35.3-44.9) % Plt Count 235 (140-400) K/mcL Neutrophils # 9.9 H (1.6-8.9) K/mcL BMP 07/19/18 10:05 Sodium 138 Potassium 4.2 Chloride 107 Carbon Dioxide 21 L BUN 12 Creatinine 0.57 L Glucose 143 H Calcium 9.1 - ABG Interpretation ABG results: PT/INR, D-dimer PT 14.7 Seconds (9.4-12.1) H 07/19/18 08:36 Consult Discharge Plan - Plan Referrals: Maurisio Ward MD [Primary Care Provider] - (3) Diabetic neuropathy Qualifiers: Diabetes mellitus type: type 2 Diabetes mellitus complication detail: diabetic polyneuropathy Qualified Code(s): E11.42 - Type 2 diabetes mellitus with diabetic polyneuropathy (5) COPD (chronic obstructive pulmonary disease) Qualifiers: COPD type: unspecified COPD Qualified Code(s): J44.9 - Chronic obstructive pulmonary disease, unspecified (6) CAD (coronary artery disease) Qualifiers: Coronary Disease-Associated Artery/Lesion type: [place] artery [place] vs. transplanted heart: [place] heart Associated angina: without angina Qualified Code(s): I25.10 - Atherosclerotic heart disease of [place] coronary artery without angina pectoris (8) HTN (hypertension) Qualifiers: Hypertension type: essential hypertension Qualified Code(s): I10 - Essential (primary) hypertension (9) HLD (hyperlipidemia) Qualifiers: Hyperlipidemia type: pure hypercholesterolemia Qualified Code(s): E78.00 - Pure hypercholesterolemia, unspecified; E78.0 - Pure hypercholesterolemia (11) Bipolar disorder Qualifiers: Active/Remission status: in full remission Most recent bipolar episode type: mixed Qualified Code(s): F31.78 - Bipolar disorder, in full remission, most recent episode mixed
[2018-07-19] MEDS: Melatonin 3 MG TABLET PO SCH (21:07)
[2018-07-19] MEDS: tiZANidine 4 MG TABLET PO SCH (21:08)
--- NOTE | 2018-07-19 22:58 | Podiatry Progress Note ---
Date of Encounter: 07/19/18 Time of Encounter: 19:00 Subjective Interval history: S:wbc increased today. patient reports feeling like she had chills. says toe still looks dark. vascular studies were wnl. patient says she want to cut part of the toe off now. Denies f/n/v. O: right 3rd digit is warm to touch. dorsal aspect of the digit does have some necrosis which is superficial in nature. there is erythema of the toe. no purulence expressed. pain with compression of the distal aspect of the right 3rd toe. diminished protective sensation consistent with neuropathy A: right 3rd toe infection/cellulitis P: discussed with patient surgical treatment options versus conservative treatment options with antibiotics. Patient says she wants to proceed with surgical intervention and she want an amputation of the toe. She says she wants to try to save part of the toe. She says she does not want this to linger on her potentially need rehabilitation in the future so she would prefer to just proceed with an amputation nail. Nature of the partial right third digit amputation discussed with the patient at length and the level at which the toe would be amputated with a pointed out to her on her toe. Risks versus benefits potential complications consequences of her condition and surgery discussed at length. No guarantees made as to the outcome. She understood that she would still have an infection which would need to be treated. No guarantees made as to the outcome of any procedure. She says she does not want the entire digit amputated. All of her questions were answered and informed consent was signed. NPO after breakfast. Objective - Vital Signs Vital Signs: Vital Signs Temp Pulse Resp BP Pulse Ox 07/19/18 21:29 16 96 07/19/18 21:07 99.4 F 91 14 130/75 96 07/19/18 15:49 18 96 07/19/18 14:33 98.4 F 94 15 144/85 95 07/19/18 11:19 98.5 F 78 16 115/79 92 07/19/18 10:28 18 97 07/19/18 08:01 98.2 F 89 16 139/75 96 07/19/18 04:17 98.3 F 83 15 110/73 96 07/19/18 03:44 18 98 Intake and Output 07/19/18 07/19/18 07/19/18 07:59 15:59 23:59 Intake Total 270 / 270 840 / 840 270 / 270 Output Total 0 / 0 200 / 200 Balance 270 / 270 640 / 640 270 / 270 Intake: IV Fluids 270 / 270 270 / 270 Maxipime 2,000 MG In Water for 20 / 20 20 / 20 inj. (sterile) 20 ML @ 300 mls/ hr IVP Q12HR SD Rx#:[id number] Vancocin 1,500 MG In 0.9 % 250 / 250 250 / 250 Sodium Chloride 250 ML @ 166.67 mls/hr IVPB Q12H SD Rx#: [id number] Oral 0 / 0 840 / 840 Output: Urine 0 / 0 200 / 200 Other: Meal Lunch Percent of Meal Consumed 100% Weight 106.8 kg Blood Glucose* 160 193 Patient Weight 07/19/18 23:59 Weight 106.8 kg - Lab Result Diagrams: 07/19/18 10:05 07/19/18 10:05 Labs: Abnormal lab results WBC 12.3 K/mcL (4.3-11.1) H 07/19/18 10:05 MCV 79.0 fL (83.0-100.0) L 07/19/18 10:05 MCH 25.7 pg (28.0-33.3) L 07/19/18 10:05 RDW 16.6 % (11.5-14.5) H 07/19/18 10:05 Neutrophils # 9.9 K/mcL (1.6-8.9) H 07/19/18 10:05 ESR 21 mm/hr (0-15) H 07/16/18 09:55 PT 14.7 Seconds (9.4-12.1) H 07/19/18 08:36 Carbon Dioxide 21 mEq/L (23-29) L 07/19/18 10:05 Creatinine 0.57 mg/dL (0.60-1.20) L 07/19/18 10:05 Glucose 143 mg/dL (70-105) H 07/19/18 10:05 POC Glucose 193 mg/dL (70-99) H 07/19/18 20:48 Total Bilirubin 0.2 mg/dL (0.3-1.0) L 07/17/18 03:41 C-Reactive Protein 36 mg/L (Less than 10) H 07/16/18 09:55 Serum Total Protein 5.0 g/dL (6.4-8.9) L 07/17/18 03:41 Albumin 3.1 g/dL (3.5-5.7) L 07/17/18 03:41 Globulin 1.9 g/dL (2.4-3.5) L 07/17/18 03:41 Vancomycin Trough 12 mcg/mL (5-10) H 07/19/18 14:29 Consult Discharge Plan - Plan Referrals: Maurisio Ward MD [Primary Care Provider] -
[2018-07-20] MEDS: *HR* OxyCODONE/APAP 5/325 TABLET PO PRN ×3 (01:37→23:38)
[2018-07-20] MEDS: Levalbuterol 1 PUFF INHALER IH SCH ×4 (04:21→21:57)
[2018-07-20] MEDS: Cefepime HCl 2,000 MG in Water for inj. (sterile) 20 ML 20 ML IVP SCH (05:47)
[2018-07-20 06:15] LABS: INR 1.4; Prothrombin Time 15.8 Seconds (9.4-12.1)
[2018-07-20] MEDS: risperiDONE 1 MG TABLET PO SCH (08:26)
[2018-07-20] MEDS: FLUoxetine 20 MG CAPSULE PO SCH (08:26)
[2018-07-20] MEDS: Gabapentin 300 MG CAPSULE PO SCH (08:27)
[2018-07-20] MEDS: Topiramate 25 MG TABLET PO SCH (08:27)
[2018-07-20] MEDS: hydrOXYzine pamoate 25 MG CAPSULE PO SCH (08:27)
[2018-07-20] MEDS: Sucralfate 1 GM TABLET PO SCH (08:27)
[2018-07-20] MEDS: Aspirin 81 MG TAB.CHEW PO SCH (08:28)
[2018-07-20] MEDS: Insulin LISPRO 300 UNITS/3 ML VIAL SQ SCH (08:28)
--- NOTE | 2018-07-20 09:30 | Internal Med Progress Note ---
Hospitalist Progress Note - Encounter Date of Encounter: 07/20/18 Time of Encounter: 11:00 - Subjective Interval History: Patient with no improvement in right third digit necrosis Options discussed with patient for medical therapy versus surgical and patient chose surgical treatment therefore plans for amputation of toe today by podiatry Continue IV antibiotics - Exam Vitals: Temp Pulse Resp BP Pulse Ox 98.0 F 84 16 124/73 96 07/20/18 07:15 07/20/18 07:15 07/20/18 07:15 07/20/18 07:15 07/20/18 07:15 Exam: Gen.: Nonacute distress, alert and oriented 3 ENT: Mucosal membranes moist Respiratory: Lungs are clear to auscultation bilaterally without any wheezing rhonchi or rales Cardiovascular: Normal S1 and S2 regular rate rhythm no murmurs rubs or gallops Abdomen: Soft, nontender and nondistended with positive bowel sounds Extremities: Right necrotic third toe Skin: Normal color - Assessment and Plan (1) Diabetic foot infection Current Visit: Yes Status: Acute Assessment and Plan: Right third digit is concerning for infection therefore we will continue IV cefepime and IV vancomycin Plans for toe amputation by podiatry today (2) Diabetes mellitus type 2 in obese Current Visit: No Status: Chronic Assessment and Plan: Continue home basal insulin, continue insulin sliding scale. (3) Diabetic neuropathy Current Visit: No Status: Chronic Assessment and Plan: Gabapentin 600 mg TID (4) Hypokalemia Current Visit: Yes Status: Acute Assessment and Plan: Resolved; continue replacements as needed (5) COPD (chronic obstructive pulmonary disease) Current Visit: No Status: Chronic Assessment and Plan: Stable; continue Symbicort (6) CAD (coronary artery disease) Current Visit: No Status: Chronic Assessment and Plan: Stable; continue ASA and Atorvastatin (7) PAF (paroxysmal atrial fibrillation) Current Visit: No Status: Chronic Assessment and Plan: Rate controlled on beta lizzette and anticoagulation with Coumadin. (8) HTN (hypertension) Current Visit: No Status: Chronic Assessment and Plan: Continue beta lizzette (9) HLD (hyperlipidemia) Current Visit: No Status: Chronic Assessment and Plan: Continue statin (10) Morbid obesity Current Visit: No Status: Chronic Assessment and Plan: Lifestyle modifications (11) Bipolar disorder Current Visit: No Status: Chronic Assessment and Plan: Mood stable, continue home medications. (12) Smoker Current Visit: No Status: Chronic Assessment and Plan: Smoking cessation education. DVT Prophylaxis: On Coumadin - Time Spent with Patient Total time spent is greater than 50% in coordination of care (as documented) at patient's floor/unit and/or counseling patient: Internal Medicine: Result - Labs CBC & Chem 7: 07/20/18 09:32 07/20/18 09:32 Labs: Short CBC 07/19/18 Range/Units 10:05 WBC 12.3 H (4.3-11.1) K/mcL Hgb 11.5 (11.5-15.4) g/dL Hct 35.3 (35.3-44.9) % Plt Count 235 (140-400) K/mcL Neutrophils # 9.9 H (1.6-8.9) K/mcL BMP 07/19/18 10:05 Sodium 138 Potassium 4.2 Chloride 107 Carbon Dioxide 21 L BUN 12 Creatinine 0.57 L Glucose 143 H Calcium 9.1 - ABG Interpretation ABG results: PT/INR, D-dimer PT 15.8 Seconds (9.4-12.1) H 07/20/18 05:38 Consult Discharge Plan - Plan Referrals: Maurisio Ward MD [Primary Care Provider] - (3) Diabetic neuropathy Qualifiers: Diabetes mellitus type: type 2 Diabetes mellitus complication detail: diabetic polyneuropathy Qualified Code(s): E11.42 - Type 2 diabetes mellitus with diabetic polyneuropathy (5) COPD (chronic obstructive pulmonary disease) Qualifiers: COPD type: unspecified COPD Qualified Code(s): J44.9 - Chronic obstructive pulmonary disease, unspecified (6) CAD (coronary artery disease) Qualifiers: Coronary Disease-Associated Artery/Lesion type: [place] artery [place] vs. transplanted heart: [place] heart Associated angina: without angina Qualified Code(s): I25.10 - Atherosclerotic heart disease of [place] coronary artery without angina pectoris (8) HTN (hypertension) Qualifiers: Hypertension type: essential hypertension Qualified Code(s): I10 - Essential (primary) hypertension (9) HLD (hyperlipidemia) Qualifiers: Hyperlipidemia type: pure hypercholesterolemia Qualified Code(s): E78.00 - Pure hypercholesterolemia, unspecified; E78.0 - Pure hypercholesterolemia (11) Bipolar disorder Qualifiers: Active/Remission status: in full remission Most recent bipolar episode type: mixed Qualified Code(s): F31.78 - Bipolar disorder, in full remission, most recent episode mixed
[2018-07-20 09:47] LABS: Basophils % 0.4 %; Eosinophils # 0.1 K/mcL (0.0-0.6); Eosinophils % 1.1 %; Hematocrit 36.2 % (35.3-44.9); Hemoglobin 11.4 g/dL (11.5-15.4); Immature Granulocytes % 0.7 % (0-4); Lymphocytes # 1.6 K/mcL (0.6-4.6); Lymphocytes % 14.7 %; Mean Corpuscular HGB Conc 31.5 g/dL (31.6-35.5); Mean Corpuscular Hemoglobin 25.6 pg (28.0-33.3); Mean Corpuscular Volume 81.2 fL (83.0-100.0); Mean Platelet Volume 10.4 fL (9.4-12.4); Monocytes # 0.7 K/mcL (0.0-1.3); Monocytes % 6.7 %; Neutrophils # 8.1 K/mcL (1.6-8.9); Platelet Count 196 K/mcL (140-400); Red Blood Count 4.46 M/mcL (3.82-4.97); Red Cell Distribution Width 16.2 % (11.5-14.5); Segmented Neutrophils % 76.4 %
[2018-07-20 10:03] LABS: BUN/Creatinine Ratio 20 (6-26); Blood Urea Nitrogen 13 mg/dL (6-20); Carbon Dioxide 24 mEq/L (23-29); Chloride 106 mEq/L (98-107); Glucose 141 mg/dL (70-105); Osmolality,Calculated 288 (280-300); Potassium 3.8 mEq/L (3.5-5.1); Sodium 138 mEq/L (136-145); eGFR For Non-African Americans > 60 (> 60)
[2018-07-20] MEDS: Budesonide/Formoterol 160/4.5 1 PUFF INH IH SCH ×2 (11:11→21:56)
[2018-07-20] MEDS: Tiotropium 18 MCG inhalation IH SCH (11:11)
--- NOTE | 2018-07-20 16:36 | Anesthesia Evaluation PreOp ---
Date of Encounter: 07/20/18 Time of Encounter: 16:34 - Past History Planned Operation: I & D Right Foot Cardiac History: CT (CT x 3), HTN, Arrhythmia (H/O A-Fib), Cardiac Stent (stent x 1 in 2006) Pulmonary History: Smoker (30+ years), Asthma, COPD (home O2 qhs 2 L/min), SNEHA Dx (does not use CPAP) BUSINESS ASSISTANT History: CVA (residual LUE weakness) Other Medical History: Diabetes Type II, Thyroid, Other (obesity BMI=42.8) Anesthesia History: No Prior Anesthetic Complications, Past Anesthesia Alcohol Use: none Drug use: none Medications and Allergies Budesonide/Formoterol 160/4.5 [Symbicort 160/4.5] 2 puff IH BID 12/30/16 [ History] Insulin ASPART [NovoLOG] 2 - 10 unit SQ TIDWM 12/30/16 [History] Nitroglycerin [Nitrostat] 0.4 mg SL Q5M PRN 12/30/16 [History] Tiotropium [Spiriva] 1 puff IH DAILY 12/30/16 [History] Oxygen 2 l NS HS 03/15/17 [History] Quetiapine Fumarate [Seroquel] 300 mg PO HS 07/20/17 [History] Aspirin 81 mg PO DAILY #30 tab.chew 07/22/17 [Rx] Ipratropium/Albuterol Neb [Duoneb] 3 ml IH BID PRN 10/13/17 [History] Warfarin [Coumadin] 3 mg PO DAILY 10/31/17 [History] FLUoxetine HCl [Prozac] 80 mg PO DAILY 01/02/18 [History] Meclizine HCl [Verticalm] 25 mg PO BID PRN 01/02/18 [History] Pantoprazole Sodium [Protonix] 40 mg PO DAILY 02/13/18 [History] Tizanidine HCl 2 mg PO HS 03/28/18 [History] Topiramate [Topamax] 50 mg PO BID 03/28/18 [History] Gabapentin [Neurontin] 600 mg PO TID 05/06/18 [History] Oxycodone HCl/Acetaminophen [Percocet 5-325 mg Tablet] 1 tab PO Q8H PRN [History] Atorvastatin [Lipitor] 40 mg PO HS 07/16/18 [History] Buspirone HCl [Buspar] 30 mg PO BID 07/16/18 [History] Doxycycline Hyclate [Doxycycline Hyclate] 100 mg PO BID 07/16/18 [History] Gentamicin Sulfate Cream [Gentamicin Sulfate] 1 applic TP BID 07/16/18 [History] Levalbuterol Tartrate [Xopenex Hfa] 2 puff IH Q6H 07/16/18 [History] Melatonin/Pyridoxine HCl (B6) [Melatonin 5 mg Tablet] 3 tab PO HS 07/16/18 [ History] Sucralfate [Carafate] 1 gm PO BID 07/16/18 [History] hydrOXYzine pamoate [HydrOXYzine Pamoate] 50 mg PO TID 07/16/18 [History] risperiDONE [Risperdal] 2 mg PO DAILY 07/16/18 [History] 3 Allergy/AdvReac Type Severity Reaction Status Date / Time baclofen Allergy Itching Verified 07/16/18 11:54 ciprofloxacin [From Cipro] Allergy Hives Verified 07/16/18 11:54 latex Allergy Rash Verified 07/16/18 11:54 Penicillins Allergy Hives Verified 07/16/18 11:54 prednisone Allergy Itching Verified 07/16/18 11:54 sulfamethoxazole Allergy Hives Verified 07/16/18 11:54 [From Bactrim] trimethoprim [From Bactrim] Allergy Hives Verified 07/16/18 11:54 cefdinir AdvReac Vomiting Verified 07/16/18 11:54 - Meds/Allergy Pre-op Review Medications Reviewed: Yes Allergies Reviewed: Yes Beta Blockers on Current Med List: Yes If Beta Blockers taken, Date/Time (Last Dose taken): 07/20/2018 at 0827 Anesthesia Results - Labs 07/20/18 09:32 07/20/18 09:32 - Imaging EKG: report reviewed (03/28/2018 SINUS RHYTHM INTRAVENTRICULAR CONDUCTION DELAY) Additional studies: 11/18/2017 LEFT HEART CATH Indications: Abnormal Test - Stress Impressions: Single vessel coronary artery disease. Previously stented proximal LAD widely patent. The left ventricle is normal and has normal contractility EF 55% Recommendations: Optimal medical therapy of patient's disease. Aggressive risk factor modification. 10/16/2017 Echo Impressions: LVEF 55%. Moderate left ventricular diastolic dysfunction. There is no LV thrombus. Atypical septal motion consistent with bundle branch block. Normal right ventricular structure and function. Mild mitral regurgitation. Borderline pulmonary hypertension - TR gradient 35 mmHg. 07/05/2017 Stress Impression: There is a small size, very mild intensity perfusion defect involving the apex during stress. Findings may represent very mild ischemia. No evidence for infarct. Fixed anteroseptal perfusion defect, likely from LBBB. Pharmacologic ECG was negative for ischemia at the level of heart rate achieved. Gated EF = 43%. Findings reported to ordering provider. Anesthesia Exam Vital Signs/O2 Sat/Glucose, Most Recent Temp Pulse Resp BP Pulse Ox 98.1 F 82 18 114/70 96 07/20/18 15:39 07/20/18 15:39 07/20/18 16:06 07/20/18 15:39 07/20/18 16:06 Blood Glucose* 93 Height: 5'2'/1.57m Weight: 234 lbs/106.2 kg NPO (# of Hours): 8 Pain Scale: 4 (right foot) Pain Scale Used: Numeric (1 - 10) - HEENT Pupil (Motor): EOMI Mallampati: III Teeth: Missing, Poor dentition Denture Type: Upper: Complete Oral Opening: Greater than 3 - BUSINESS ASSISTANT LOC: Oriented BUSINESS ASSISTANT Motor: Normal RUE, Normal RLE, Normal LLE, Normal Face, Deficit LUE BUSINESS ASSISTANT Sensory: Normal: RUE, LUE, Face, Deficit: RLE, LLE - Cardiac Rhythm: Regular Murmur: None - Pulmonary Breath Sounds: bilateral Clear Respiratory Effort: Symmetrical Anesthesia Assess/Plan ASA Score: 3 Modified Patience Scale for Level of Consciousness: Cooperative, oriented, and tranquil Anesthetic Plan: MAC Monitoring Plan: Standard Monitors
[2018-07-20] MEDS ORDERED: *HR* FentaNYL (PF) 100 MCG/2 ML VIAL ONE (20:30)
[2018-07-20] MEDS ORDERED: *HR* Propofol 200 MG/20 ML VIAL IVP ONE (20:30)
[2018-07-20] MEDS ORDERED: *HR* Midazolam HCl 2 MG/2 ML VIAL ONE (20:30)
[2018-07-20] MEDS ORDERED: Lidocaine -MPF 2% 2 ML VIAL ONE (21:41)
[2018-07-20] MEDS ORDERED: Dexamethasone 4 MG/ML VIAL ONE (22:13)
[2018-07-20] MEDS ORDERED: Ondansetron 4 MG/2 ML VIAL ONE (22:13)
--- NOTE | 2018-07-20 22:39 | Anesthesia Evaluation Post Op ---
Date of Encounter: 07/20/18 Time of Encounter: 22:38 - Vital Signs Vital Signs: Vital Signs/O2 Sat, Most Current Temp Pulse Resp BP Pulse Ox 98.1 F 82 18 114/70 96 07/20/18 15:39 07/20/18 15:39 07/20/18 16:06 07/20/18 15:39 07/20/18 16:06 - Lungs Lungs: Clear Ascult./Percussion - Airway Airway: Non-obstructed - Cardiovascular Regular Rate - Mental Status Mental Status: Alert & Oriented, Answers Appropriately - Pain Pain Scale: 0 Pain Scale used: Numeric (1 - 10) - Nausea Vomiting Nausea Vomiting: Not Present - Hydration Hydration: NPO, Has not voided - Discharge PostOp Status: Transfer Patient to floor
--- NOTE | 2018-07-20 22:41 | Operative Note ---
Date of procedure: 07/20/18 Pre-op diagnosis: right 3rd toe infection Post-op diagnosis: same Procedure: amputation of right 3rd toe Implants: none Complications: none Anesthesia: MAC, IV sedation Local Anesthetics: 1% Lidocaine HCL SubQ (cc) Surgeon: Giovani Daniel Was there an pediatric physician assistant present: No Estimated blood loss (cc): 5 Specimen: right 3rd toe path, micro-culture swab, 3rd toe bone Condition: stable Disposition: PACU Procedure in Detail: Indications: 53-year-old diabetic female with right third digit infection wanting to proceed with amputation of the third toe after having the alternatives to amputation as well as alternatives to surgery discussed at length. Nature of the above procedure, risks versus benefits potential complications consequences of her condition and amputation discussed at length. She says she only wants to cut off the toe. No guarantees were made as to the outcome of any procedure and she understood that she could still have a wound to heal and infection in the toe despite having surgery. All of her questions have been answered and the informed consent was signed. Patient was taken from the preoperative holding area to the operating room placed on operating room table in the supine position. Right lower extremity was scrubbed prepped and draped in the usual sterile fashion. A tourniquet was applied and but not inflated during the entire procedure. 1% lidocaine plain was injected into the patient's right foot. Following procedures then began. Amputation right third digit. Attention was directed to the dorsal aspect of the patient's right foot where a racquet-type incision was made around the third digit full-thickness down to the level of the bone. The soft tissue was freed from the bone and the sagittal saw was used to resect the proximal phalanx bone. Bone from the amputation site was sent to microbiology and the toe was sent to pathology. A culture swab was taken of the third digit soft tissue. The third digit bone that remained was bleeding. The flexor and extensor tendons were traced proximally and cut. The site was flushed with normal sterile saline. There was no purulence encountered. The bone left behind was felt to be of hard quality. The bone at the amputation site was also bleeding. There was no devitalized tissue and the soft tissue surrounding the bone at the level of the amputation. The decision was made to close the skin at the amputation site and 3-0 Prolene was used to reapproximate the skin. Postoperative bandaging included Adaptic, 4 x 4 gauze and Kerlix. The patient tolerated the anesthesia and the procedure well and was escorted to the recovery room with vital signs stable and vascular status intact to the remaining digits of the right foot. Adequate hemostasis was present. She will return to the floor where she will resume her Coumadin and continue antibiotics.
[2018-07-20] MEDS ORDERED: Naloxone 0.4 MG/ML INJ IVP PRN (22:55)
[2018-07-20] MEDS ORDERED: D5% in Water 1,000 ML IVC PRN (22:55)
[2018-07-20] MEDS ORDERED: Ipratropium/Albuterol Neb 3 ML IH PRN (22:55)
[2018-07-20] MEDS ORDERED: *HR* Dextrose 50 % in Water (Syg) 50 ML SYRINGE IVP PRN (22:55)
[2018-07-20] MEDS ORDERED: Nitroglycerin 0.4 MG TAB.SUBL SL PRN (22:55)
[2018-07-20] MEDS ORDERED: Acetaminophen 325 MG TABLET PO PRN (22:55)
[2018-07-20] MEDS ORDERED: Dextrose Gel 15 GM/37.5 ML TUBE PO PRN ×2 (22:55)
[2018-07-21] MEDS: Insulin LISPRO 300 UNITS/3 ML VIAL SQ SCH ×6 (00:11→20:34)
[2018-07-21] MEDS: Gabapentin 300 MG CAPSULE PO SCH ×5 (00:12→20:32)
[2018-07-21] MEDS: hydrOXYzine pamoate 25 MG CAPSULE PO SCH ×4 (00:12→20:32)
[2018-07-21] MEDS: Sucralfate 1 GM TABLET PO SCH ×3 (00:13→20:32)
[2018-07-21] MEDS: Cefepime HCl 2,000 MG in Water for inj. (sterile) 20 ML 20 ML IVP SCH ×3 (00:13→18:13)
[2018-07-21] MEDS: Melatonin 3 MG TABLET PO SCH ×3 (00:14→20:33)
[2018-07-21] MEDS: Topiramate 25 MG TABLET PO SCH ×3 (00:14→20:32)
[2018-07-21] MEDS: tiZANidine 4 MG TABLET PO SCH ×2 (00:14→20:33)
[2018-07-21 01:01] LABS: INR 1.4; Prothrombin Time 15.2 Seconds (9.4-12.1)
[2018-07-21] MEDS ORDERED: Warfarin perPT PO PRN (02:31)
[2018-07-21] MEDS ORDERED: *HR* Warfarin 3 MG TABLET PO ONE (02:45)
[2018-07-21] MEDS: Levalbuterol 1 PUFF INHALER IH SCH ×4 (04:08→21:27)
[2018-07-21] MEDS: FLUoxetine 20 MG CAPSULE PO SCH (08:53)
[2018-07-21] MEDS: Aspirin 81 MG TAB.CHEW PO SCH (08:54)
[2018-07-21] MEDS: risperiDONE 1 MG TABLET PO SCH (08:55)
[2018-07-21] MEDS: *HR* OxyCODONE/APAP 5/325 TABLET PO PRN ×2 (09:16→18:12)
--- NOTE | 2018-07-21 10:17 | Internal Med Progress Note ---
Hospitalist Progress Note - Encounter Date of Encounter: 07/21/18 Time of Encounter: 11:00 - Subjective Interval History: Patient with no improvement in right third digit necrosis Options discussed with patient for medical therapy versus surgical and patient chose surgical treatment therefore plans for amputation of toe today by podiatry Continue IV antibiotics - Exam Vitals: Temp Pulse Resp BP Pulse Ox 97.6 F 86 16 150/83 96 07/21/18 06:19 07/21/18 06:19 07/21/18 06:19 07/21/18 06:19 07/21/18 06:19 Exam: Gen.: Nonacute distress, alert and oriented 3 ENT: Mucosal membranes moist Respiratory: Lungs are clear to auscultation bilaterally without any wheezing rhonchi or rales Cardiovascular: Normal S1 and S2 regular rate rhythm no murmurs rubs or gallops Abdomen: Soft, nontender and nondistended with positive bowel sounds Extremities: Right necrotic third toe Skin: Normal color - Assessment and Plan (1) Diabetic foot infection Current Visit: Yes Status: Acute Assessment and Plan: Postop day 1 amputation of right third toe; bone sent to pathology Will continue IV cefepime and IV vancomycin Postop plans per podiatry recommendations (2) Diabetes mellitus type 2 in obese Current Visit: No Status: Chronic Assessment and Plan: Continue home basal insulin, continue insulin sliding scale. (3) Diabetic neuropathy Current Visit: No Status: Chronic Assessment and Plan: Gabapentin 600 mg TID (4) Hypokalemia Current Visit: Yes Status: Acute Assessment and Plan: Resolved; continue replacements as needed (5) COPD (chronic obstructive pulmonary disease) Current Visit: No Status: Chronic Assessment and Plan: Stable; continue Symbicort (6) CAD (coronary artery disease) Current Visit: No Status: Chronic Assessment and Plan: Stable; continue ASA and Atorvastatin (7) PAF (paroxysmal atrial fibrillation) Current Visit: No Status: Chronic Assessment and Plan: Rate controlled on beta lizzette and anticoagulation with Coumadin. (8) HTN (hypertension) Current Visit: No Status: Chronic Assessment and Plan: Continue beta lizzette (9) HLD (hyperlipidemia) Current Visit: No Status: Chronic Assessment and Plan: Continue statin (10) Morbid obesity Current Visit: No Status: Chronic Assessment and Plan: Lifestyle modifications (11) Bipolar disorder Current Visit: No Status: Chronic Assessment and Plan: Mood stable, continue home medications. (12) Smoker Current Visit: No Status: Chronic Assessment and Plan: Smoking cessation education. DVT Prophylaxis: On Coumadin - Time Spent with Patient Total time spent is greater than 50% in coordination of care (as documented) at patient's floor/unit and/or counseling patient: Internal Medicine: Result - Labs CBC & Chem 7: 07/21/18 10:22 07/21/18 10:22 Labs: Short CBC 07/20/18 Range/Units 09:32 WBC 10.6 (4.3-11.1) K/mcL Hgb 11.4 L (11.5-15.4) g/dL Hct 36.2 (35.3-44.9) % Plt Count 196 (140-400) K/mcL Neutrophils # 8.1 (1.6-8.9) K/mcL - ABG Interpretation ABG results: PT/INR, D-dimer PT 15.2 Seconds (9.4-12.1) H 07/21/18 00:42 Consult Discharge Plan - Plan Referrals: Maurisio Ward MD [Primary Care Provider] - (3) Diabetic neuropathy Qualifiers: Diabetes mellitus type: type 2 Diabetes mellitus complication detail: diabetic polyneuropathy Qualified Code(s): E11.42 - Type 2 diabetes mellitus with diabetic polyneuropathy (5) COPD (chronic obstructive pulmonary disease) Qualifiers: COPD type: unspecified COPD Qualified Code(s): J44.9 - Chronic obstructive pulmonary disease, unspecified (6) CAD (coronary artery disease) Qualifiers: Coronary Disease-Associated Artery/Lesion type: [place] artery [place] vs. transplanted heart: [place] heart Associated angina: without angina Qualified Code(s): I25.10 - Atherosclerotic heart disease of [place] coronary artery without angina pectoris (8) HTN (hypertension) Qualifiers: Hypertension type: essential hypertension Qualified Code(s): I10 - Essential (primary) hypertension (9) HLD (hyperlipidemia) Qualifiers: Hyperlipidemia type: pure hypercholesterolemia Qualified Code(s): E78.00 - Pure hypercholesterolemia, unspecified; E78.0 - Pure hypercholesterolemia (11) Bipolar disorder Qualifiers: Active/Remission status: in full remission Most recent bipolar episode type: mixed Qualified Code(s): F31.78 - Bipolar disorder, in full remission, most recent episode mixed
[2018-07-21] MEDS: Budesonide/Formoterol 160/4.5 1 PUFF INH IH SCH ×2 (10:51→21:27)
[2018-07-21] MEDS: Tiotropium 18 MCG inhalation IH SCH (10:51)
--- NOTE | 2018-07-21 11:01 | EEG/EMG/Oth Biometrics Report ---
EEG Procedure Report Date of procedure: 07/12/18 EEG Procedure: Routine EEG Procedure Note: This is a routine 21 channel digital EEG performed utilizing 10- 20 international electrode placement system. FINDINGS: Patient has a predominant waking background frequency that is average voltage 8 to 10 Hertz alpha activity in the posterior region, normal amplitude symmetrical over the both hemispheres reactive to eyes opening and closing record continued to show alpha activity intermixed with some theta off and on, no abnormal activity recorded, predominantly no evidence of any spike wave discharges or any lateralizing abnormalities, Photic stimulation and hyperventilation did not produce any convulsive response. Intermittent EMG artifacts were noted. Stage II sleep was not achieved. Impression: Normal awake drowsy electroencephalogram. No epileptiform discharges or any other paroxysmal activities noted. ( Please note that normal EEG does not exclude the diagnosis of seizures or epilepsy, clinical correlation is suggested)
[2018-07-21 11:16] LABS: Basophils % 0.2 %; Hematocrit 35.3 % (35.3-44.9); Hemoglobin 11.2 g/dL (11.5-15.4); Immature Granulocytes % 1.2 % (0-4); Lymphocytes # 1.1 K/mcL (0.6-4.6); Mean Corpuscular HGB Conc 31.7 g/dL (31.6-35.5); Mean Corpuscular Hemoglobin 25.2 pg (28.0-33.3); Mean Corpuscular Volume 79.5 fL (83.0-100.0); Mean Platelet Volume 10.4 fL (9.4-12.4); Monocytes # 0.3 K/mcL (0.0-1.3); Monocytes % 3.1 %; Neutrophils # 9.4 K/mcL (1.6-8.9); Platelet Count 248 K/mcL (140-400); Red Blood Count 4.44 M/mcL (3.82-4.97); Red Cell Distribution Width 15.6 % (11.5-14.5); Segmented Neutrophils % 85.5 %
[2018-07-21 11:25] LABS: BUN/Creatinine Ratio 23 (6-26); Blood Urea Nitrogen 14 mg/dL (6-20); Calcium 9.2 mg/dL (8.6-10.3); Carbon Dioxide 23 mEq/L (23-29); Chloride 107 mEq/L (98-107); Glucose 175 mg/dL (70-105); Osmolality,Calculated 287 (280-300); Sodium 136 mEq/L (136-145); eGFR For Non-African Americans > 60 (> 60)
[2018-07-21] MEDS ORDERED: *HR* Warfarin 2 MG TABLET PO ONE (18:00)
[2018-07-21] MEDS: *HR* Enoxaparin 100 MG/ML SYRINGE SQ SCH (18:12)
[2018-07-21] MEDS ORDERED: Melatonin 3 MG TABLET PO SCH (21:00)
--- NOTE | 2018-07-21 21:08 | Podiatry Progress Note ---
Date of Encounter: 07/21/18 Time of Encounter: 12:25 Subjective Interval history: S: 1 day s/p right 3rd digit partial amputation. Patient says her pain is controlled. She does have some pain and the right foot third toe amputation site. She says she has been staying off it. She is currently in a surgical shoe. She says physical therapy got her up to move. O: There is no necrosis of the amputation site. There is no wound dehiscence of the right third digit amputation site. No fluctuance. No ascending erythema. A: right 3rd toe s/p partial amputation P: Discussed surgical procedure and intraoperative findings as well as course of recovery. Sterile bandage was reapplied to the surgical site. Discussed current culture results. She should continue in the surgical shoe. A new sterile bandage was applied. Recommend getting infectious disease input on Tuesday once cultures of that time to grow if they grow anything. Will continue to follow. She does not need a dressing change daily. Objective - Vital Signs Vital Signs: Vital Signs Temp Pulse Resp BP Pulse Ox 07/21/18 18:45 98.4 F 82 16 121/70 96 07/21/18 16:07 16 96 07/21/18 14:06 97.9 F 78 16 115/74 95 07/21/18 10:51 97.8 F 74 12 114/75 92 07/21/18 08:15 96 07/21/18 06:19 97.6 F 86 16 150/83 96 07/21/18 04:50 98 F 82 16 138/80 93 07/21/18 04:14 16 95 07/21/18 00:16 95 07/20/18 23:14 98.7 F 86 14 136/83 95 Intake and Output 07/21/18 07/21/18 07/21/18 07:59 15:59 23:59 Intake Total 260 / 260 720 / 720 490 / 490 Output Total 1000 / 1000 850 / 850 0 / 0 Balance -740 / -740 -130 / -130 490 / 490 Intake: IV Fluids 20 / 20 250 / 250 Maxipime 2,000 MG In Water for 20 / 20 inj. (sterile) 20 ML @ 300 mls/ hr IVP Q12HR [facility] Rx#:[id number] Vancocin 1,000 MG In 0.9 % 250 / 250 Sodium Chloride 250 ML @ 167 mls/hr IVPB Q12H [facility] Rx#: [id number] Oral 240 / 240 720 / 720 240 / 240 Output: Urine 1000 / 1000 850 / 850 0 / 0 Other: Meal Lunch Dinner Percent of Meal Consumed 100% 100% # Bowel Movements 0 0 Weight 104.9 kg Blood Glucose* 217 203 147 Patient Weight 07/21/18 23:59 Weight 104.9 kg - Lab Result Diagrams: 07/21/18 10:22 07/21/18 10:22 Labs: Abnormal lab results Hgb 11.2 g/dL (11.5-15.4) L 07/21/18 10:22 MCV 79.5 fL (83.0-100.0) L 07/21/18 10:22 MCH 25.2 pg (28.0-33.3) L 07/21/18 10:22 RDW 15.6 % (11.5-14.5) H 07/21/18 10:22 Neutrophils # 9.4 K/mcL (1.6-8.9) H 07/21/18 10:22 ESR 21 mm/hr (0-15) H 07/16/18 09:55 PT 15.2 Seconds (9.4-12.1) H 07/21/18 00:42 Glucose 175 mg/dL (70-105) H 07/21/18 10:22 POC Glucose 217 mg/dL (70-99) H 07/21/18 00:13 Total Bilirubin 0.2 mg/dL (0.3-1.0) L 07/17/18 03:41 C-Reactive Protein 36 mg/L (Less than 10) H 07/16/18 09:55 Serum Total Protein 5.0 g/dL (6.4-8.9) L 07/17/18 03:41 Albumin 3.1 g/dL (3.5-5.7) L 07/17/18 03:41 Globulin 1.9 g/dL (2.4-3.5) L 07/17/18 03:41 Vancomycin Trough 22 mcg/mL (5-10) H 07/21/18 00:42 Microbiology, Last 48 Hours 07/20/18 22:10 Gram Stain - Final Right Third Toe 07/20/18 22:15 Surgical Biopsy Culture - Preliminary Right Third Toe 07/19/18 18:00 Wound Culture - Preliminary Right Third Toe No pathogens isolated. Consult Discharge Plan - Plan Referrals: Maurisio Ward MD [Primary Care Provider] -
[2018-07-22] MEDS: Levalbuterol 1 PUFF INHALER IH SCH ×4 (04:17→22:21)
[2018-07-22 05:05] LABS: INR 1.3; Prothrombin Time 14.7 Seconds (9.4-12.1)
[2018-07-22] MEDS: *HR* Enoxaparin 100 MG/ML SYRINGE SQ SCH ×2 (06:00→18:37)
[2018-07-22] MEDS: Cefepime HCl 2,000 MG in Water for inj. (sterile) 20 ML 20 ML IVP SCH ×2 (06:00→18:36)
[2018-07-22] MEDS: *HR* OxyCODONE/APAP 5/325 TABLET PO PRN ×2 (06:14→14:14)
[2018-07-22] MEDS: Gabapentin 300 MG CAPSULE PO SCH ×3 (08:08→21:03)
[2018-07-22] MEDS: FLUoxetine 20 MG CAPSULE PO SCH (08:08)
[2018-07-22] MEDS: risperiDONE 1 MG TABLET PO SCH (08:08)
[2018-07-22] MEDS: Insulin LISPRO 300 UNITS/3 ML VIAL SQ SCH ×4 (08:09→21:07)
[2018-07-22] MEDS: Aspirin 81 MG TAB.CHEW PO SCH (08:09)
[2018-07-22] MEDS: Sucralfate 1 GM TABLET PO SCH ×2 (08:09→21:03)
[2018-07-22] MEDS: hydrOXYzine pamoate 25 MG CAPSULE PO SCH ×3 (08:09→21:02)
[2018-07-22] MEDS: Topiramate 25 MG TABLET PO SCH ×2 (08:09→21:03)
--- NOTE | 2018-07-22 09:00 | Internal Med Progress Note ---
Hospitalist Progress Note - Encounter Date of Encounter: 07/22/18 Time of Encounter: 11:00 - Subjective Interval History: Patient is postop day 2 for amputation of right third necrotic toe Wound cultures and surgical cultures negative for growth after 24 hours - Exam Vitals: Temp Pulse Resp BP Pulse Ox 98.5 F 72 15 138/88 97 07/22/18 07:06 07/22/18 07:06 07/22/18 07:06 07/22/18 07:06 07/22/18 07:06 Exam: Gen.: Nonacute distress, alert and oriented 3 ENT: Mucosal membranes moist Respiratory: Lungs are clear to auscultation bilaterally without any wheezing rhonchi or rales Cardiovascular: Normal S1 and S2 regular rate rhythm no murmurs rubs or gallops Abdomen: Soft, nontender and nondistended with positive bowel sounds Extremities: Right necrotic third toe Skin: Normal color - Assessment and Plan (1) Diabetic foot infection Current Visit: Yes Status: Acute Assessment and Plan: Postop day 2 amputation of right third toe; bone sent to pathology Surgical and wound cultures negative after 24 hours Consider de-escalation of IV antibiotics Will continue IV cefepime and IV vancomycin for now Will consult infectious disease for recommendations for choice of antibiotic and duration. Appreciate podiatry's recommendations for disposition of patient status post surgical amputation (2) Diabetes mellitus type 2 in obese Current Visit: No Status: Chronic Assessment and Plan: Continue home basal insulin, continue insulin sliding scale. (3) Diabetic neuropathy Current Visit: No Status: Chronic Assessment and Plan: Gabapentin 600 mg TID (4) Hypokalemia Current Visit: Yes Status: Acute Assessment and Plan: Resolved; continue replacements as needed (5) COPD (chronic obstructive pulmonary disease) Current Visit: No Status: Chronic Assessment and Plan: Stable; continue Symbicort (6) CAD (coronary artery disease) Current Visit: No Status: Chronic Assessment and Plan: Stable; continue ASA and Atorvastatin (7) PAF (paroxysmal atrial fibrillation) Current Visit: No Status: Chronic Assessment and Plan: Rate controlled on beta lizzette and anticoagulation with Coumadin. (8) HTN (hypertension) Current Visit: No Status: Chronic Assessment and Plan: Continue beta lizzette (9) HLD (hyperlipidemia) Current Visit: No Status: Chronic Assessment and Plan: Continue statin (10) Morbid obesity Current Visit: No Status: Chronic Assessment and Plan: Lifestyle modifications (11) Bipolar disorder Current Visit: No Status: Chronic Assessment and Plan: Mood stable, continue home medications. (12) Smoker Current Visit: No Status: Chronic Assessment and Plan: Smoking cessation education. - Time Spent with Patient Total time spent is greater than 50% in coordination of care (as documented) at patient's floor/unit and/or counseling patient: Internal Medicine: Result - Labs CBC & Chem 7: 07/22/18 09:40 07/22/18 09:40 Labs: Short CBC 07/21/18 Range/Units 10:22 WBC 11.0 (4.3-11.1) K/mcL Hgb 11.2 L (11.5-15.4) g/dL Hct 35.3 (35.3-44.9) % Plt Count 248 (140-400) K/mcL Neutrophils # 9.4 H (1.6-8.9) K/mcL BMP 07/21/18 10:22 Sodium 136 Potassium 4.0 Chloride 107 Carbon Dioxide 23 BUN 14 Creatinine 0.60 Glucose 175 H Calcium 9.2 - ABG Interpretation ABG results: PT/INR, D-dimer PT 14.7 Seconds (9.4-12.1) H 07/22/18 03:31 Consult Discharge Plan - Plan Referrals: Maurisio Ward MD [Primary Care Provider] - (3) Diabetic neuropathy Qualifiers: Diabetes mellitus type: type 2 Diabetes mellitus complication detail: diabetic polyneuropathy Qualified Code(s): E11.42 - Type 2 diabetes mellitus with diabetic polyneuropathy (5) COPD (chronic obstructive pulmonary disease) Qualifiers: COPD type: unspecified COPD Qualified Code(s): J44.9 - Chronic obstructive pulmonary disease, unspecified (6) CAD (coronary artery disease) Qualifiers: Coronary Disease-Associated Artery/Lesion type: [place] artery [place] vs. transplanted heart: [place] heart Associated angina: without angina Qualified Code(s): I25.10 - Atherosclerotic heart disease of [place] coronary artery without angina pectoris (8) HTN (hypertension) Qualifiers: Hypertension type: essential hypertension Qualified Code(s): I10 - Essential (primary) hypertension (9) HLD (hyperlipidemia) Qualifiers: Hyperlipidemia type: pure hypercholesterolemia Qualified Code(s): E78.00 - Pure hypercholesterolemia, unspecified; E78.0 - Pure hypercholesterolemia (11) Bipolar disorder Qualifiers: Active/Remission status: in full remission Most recent bipolar episode type: mixed Qualified Code(s): F31.78 - Bipolar disorder, in full remission, most recent episode mixed
[2018-07-22 09:50] LABS: Basophils % 0.4 %; Eosinophils # 0.1 K/mcL (0.0-0.6); Eosinophils % 0.9 %; Hematocrit 34.5 % (35.3-44.9); Hemoglobin 10.9 g/dL (11.5-15.4); Immature Granulocytes % 0.8 % (0-4); Lymphocytes # 2.5 K/mcL (0.6-4.6); Lymphocytes % 22.2 %; Mean Corpuscular HGB Conc 31.6 g/dL (31.6-35.5); Mean Corpuscular Hemoglobin 25.5 pg (28.0-33.3); Mean Corpuscular Volume 80.8 fL (83.0-100.0); Monocytes # 0.5 K/mcL (0.0-1.3); Monocytes % 4.9 %; Neutrophils # 7.8 K/mcL (1.6-8.9); Platelet Count 238 K/mcL (140-400); Red Blood Count 4.27 M/mcL (3.82-4.97); Red Cell Distribution Width 15.9 % (11.5-14.5); Segmented Neutrophils % 70.8 %
[2018-07-22 10:11] LABS: BUN/Creatinine Ratio 28 (6-26); Blood Urea Nitrogen 19 mg/dL (6-20); Calcium 8.6 mg/dL (8.6-10.3); Carbon Dioxide 21 mEq/L (23-29); Chloride 106 mEq/L (98-107); Glucose 182 mg/dL (70-105); Osmolality,Calculated 289 (280-300); Potassium 3.8 mEq/L (3.5-5.1); Sodium 136 mEq/L (136-145); eGFR For Non-African Americans > 60 (> 60)
[2018-07-22] MEDS: Budesonide/Formoterol 160/4.5 1 PUFF INH IH SCH ×2 (10:47→22:22)
[2018-07-22] MEDS: Tiotropium 18 MCG inhalation IH SCH (10:47)
--- NOTE | 2018-07-22 13:17 | Podiatry Progress Note ---
Date of Encounter: 07/22/18 Time of Encounter: 10:25 Subjective Interval history: S: patient sitting up in chair. wearing surgical shoe. does report some burning pain in the foot. pain today better than yesterday. O: There is no necrosis of the amputation site. There is no wound dehiscence of the right third digit amputation site. No fluctuance. No ascending erythema. A: right 3rd toe s/p partial amputation P: discussed culture results. Sterile bandage was reapplied to the surgical site. She should continue in the surgical shoe. A new sterile bandage was applied. Recommend getting infectious disease input on Tuesday. Will continue to follow. She does not need a dressing change daily. Objective - Vital Signs Vital Signs: Vital Signs Temp Pulse Resp BP Pulse Ox 07/22/18 10:49 16 97 07/22/18 08:00 97 07/22/18 07:06 98.5 F 72 15 138/88 97 07/22/18 03:35 97.6 F 73 16 139/89 95 07/21/18 21:27 16 95 07/21/18 19:35 95 07/21/18 18:45 98.4 F 82 16 121/70 96 07/21/18 16:07 16 96 07/21/18 14:06 97.9 F 78 16 115/74 95 Intake and Output 07/21/18 07/22/18 07/22/18 23:59 07:59 15:59 Intake Total 510 / 510 200 / 200 240 / 240 Output Total 500 / 500 Balance 200 / 200 240 / 240 Intake: IV Fluids 270 / 270 Maxipime 2,000 MG In Water for 20 / 20 inj. (sterile) 20 ML @ 300 mls/ hr IVP Q12HR [facility] Rx#:[id number] Vancocin 1,000 MG In 0.9 % 250 / 250 Sodium Chloride 250 ML @ 167 mls/hr IVPB Q12H [facility] Rx#: [id number] Oral 240 / 240 200 / 200 240 / 240 Output: Urine 500 / 500 Other: Meal Dinner Breakfast Percent of Meal Consumed 100% 100% # Voids 1 Weight 105 kg Blood Glucose* 147 141 195 Patient Weight 07/22/18 23:59 Weight 105 kg - Lab Result Diagrams: 07/22/18 09:40 07/22/18 09:40 Labs: Abnormal lab results Hgb 10.9 g/dL (11.5-15.4) L 07/22/18 09:40 Hct 34.5 % (35.3-44.9) L 07/22/18 09:40 MCV 80.8 fL (83.0-100.0) L 07/22/18 09:40 MCH 25.5 pg (28.0-33.3) L 07/22/18 09:40 RDW 15.9 % (11.5-14.5) H 07/22/18 09:40 ESR 21 mm/hr (0-15) H 07/16/18 09:55 PT 14.7 Seconds (9.4-12.1) H 07/22/18 03:31 Carbon Dioxide 21 mEq/L (23-29) L 07/22/18 09:40 BUN/Creatinine Ratio 28 (6-26) H 07/22/18 09:40 Glucose 182 mg/dL (70-105) H 07/22/18 09:40 POC Glucose 147 mg/dL (70-99) H 07/21/18 20:06 Total Bilirubin 0.2 mg/dL (0.3-1.0) L 07/17/18 03:41 C-Reactive Protein 36 mg/L (Less than 10) H 07/16/18 09:55 Serum Total Protein 5.0 g/dL (6.4-8.9) L 07/17/18 03:41 Albumin 3.1 g/dL (3.5-5.7) L 07/17/18 03:41 Globulin 1.9 g/dL (2.4-3.5) L 07/17/18 03:41 Vancomycin Trough 22 mcg/mL (5-10) H 07/21/18 00:42 Microbiology, Last 48 Hours 07/19/18 18:00 Anaerobic Culture - Preliminary Right Third Toe At this time, no anaerobic growth is present. The culture will be finalized after 5 days of incubation. 07/20/18 22:15 Surgical Biopsy Culture - Preliminary Right Third Toe 07/20/18 22:10 Wound Culture - Preliminary Right Third Toe No growth. 07/19/18 18:00 Wound Culture - Final Right Third Toe No pathogens isolated. 07/20/18 22:10 Gram Stain - Final Right Third Toe Consult Discharge Plan - Plan Referrals: Maurisio Ward MD [Primary Care Provider] -
[2018-07-22] MEDS ORDERED: *HR* Warfarin 5 MG TABLET PO ONE (18:00)
[2018-07-22] MEDS: Melatonin 3 MG TABLET PO SCH (21:02)
[2018-07-22] MEDS: tiZANidine 4 MG TABLET PO SCH (21:02)
[2018-07-23] MEDS: Levalbuterol 1 PUFF INHALER IH SCH ×5 (05:42→22:12)
[2018-07-23 05:50] LABS: INR 1.4; Prothrombin Time 15.7 Seconds (9.4-12.1)
[2018-07-23] MEDS: Cefepime HCl 2,000 MG in Water for inj. (sterile) 20 ML 20 ML IVP SCH ×2 (06:06→18:51)
[2018-07-23] MEDS: *HR* Enoxaparin 100 MG/ML SYRINGE SQ SCH ×2 (06:17→18:51)
[2018-07-23] MEDS: FLUoxetine 20 MG CAPSULE PO SCH (08:03)
[2018-07-23] MEDS: Topiramate 25 MG TABLET PO SCH ×2 (08:03→21:18)
[2018-07-23] MEDS: hydrOXYzine pamoate 25 MG CAPSULE PO SCH ×3 (08:03→21:18)
[2018-07-23] MEDS: risperiDONE 1 MG TABLET PO SCH (08:03)
[2018-07-23] MEDS: Aspirin 81 MG TAB.CHEW PO SCH (08:04)
[2018-07-23] MEDS: Gabapentin 300 MG CAPSULE PO SCH ×3 (08:04→21:18)
[2018-07-23] MEDS: Sucralfate 1 GM TABLET PO SCH ×2 (08:09→21:17)
[2018-07-23] MEDS: Insulin LISPRO 300 UNITS/3 ML VIAL SQ SCH ×4 (08:09→21:19)
[2018-07-23] MEDS: *HR* OxyCODONE/APAP 5/325 TABLET PO PRN ×2 (08:18→16:36)
--- NOTE | 2018-07-23 09:18 | Internal Med Progress Note ---
Hospitalist Progress Note - Encounter Date of Encounter: 07/23/18 Time of Encounter: 11:00 - Subjective Interval History: Patient is postop day 3 for amputation of right third necrotic toe Wound cultures and surgical cultures negative for growth after 24 hours Infectious disease consulted for recommendations for antibiotic choice as an outpatient - Exam Vitals: Temp Pulse Resp BP Pulse Ox 98.6 F 84 16 144/88 96 07/23/18 06:38 07/23/18 06:38 07/23/18 06:38 07/23/18 06:38 07/23/18 06:38 Exam: Gen.: Nonacute distress, alert and oriented 3 ENT: Mucosal membranes moist Respiratory: Lungs are clear to auscultation bilaterally without any wheezing rhonchi or rales Cardiovascular: Normal S1 and S2 regular rate rhythm no murmurs rubs or gallops Abdomen: Soft, nontender and nondistended with positive bowel sounds Extremities: Right necrotic third toe Skin: Normal color - Assessment and Plan (1) Diabetic foot infection Current Visit: Yes Status: Acute Assessment and Plan: Postop day 3 amputation of right third toe; bone sent to pathology Surgical and wound cultures negative after 24 hours Will continue IV cefepime and IV vancomycin for now Will consult infectious disease for recommendations for choice of antibiotic and duration as an outpatient. Appreciate podiatry's recommendations for disposition of patient status post surgical amputation (2) Diabetes mellitus type 2 in obese Current Visit: No Status: Chronic Assessment and Plan: Continue home basal insulin, continue insulin sliding scale. (3) Diabetic neuropathy Current Visit: No Status: Chronic Assessment and Plan: Gabapentin 600 mg TID (4) Hypokalemia Current Visit: Yes Status: Acute Assessment and Plan: Resolved; continue replacements as needed (5) COPD (chronic obstructive pulmonary disease) Current Visit: No Status: Chronic Assessment and Plan: Stable; continue Symbicort (6) CAD (coronary artery disease) Current Visit: No Status: Chronic Assessment and Plan: Stable; continue ASA and Atorvastatin (7) PAF (paroxysmal atrial fibrillation) Current Visit: No Status: Chronic Assessment and Plan: Rate controlled on beta lizzette Patient on Coumadin with Lovenox bridge; INR 1.4 this morning (8) HTN (hypertension) Current Visit: No Status: Chronic Assessment and Plan: Continue beta lizzette (9) HLD (hyperlipidemia) Current Visit: No Status: Chronic Assessment and Plan: Continue statin (10) Morbid obesity Current Visit: No Status: Chronic Assessment and Plan: Lifestyle modifications (11) Bipolar disorder Current Visit: No Status: Chronic Assessment and Plan: Mood stable, continue home medications. (12) Smoker Current Visit: No Status: Chronic Assessment and Plan: Smoking cessation education. DVT Prophylaxis: On Coumadin with Lovenox bridge - Time Spent with Patient Total time spent is greater than 50% in coordination of care (as documented) at patient's floor/unit and/or counseling patient: Internal Medicine: Result - Labs CBC & Chem 7: 07/23/18 09:38 07/23/18 09:38 Labs: Short CBC 07/22/18 Range/Units 09:40 WBC 11.0 (4.3-11.1) K/mcL Hgb 10.9 L (11.5-15.4) g/dL Hct 34.5 L (35.3-44.9) % Plt Count 238 (140-400) K/mcL Neutrophils # 7.8 (1.6-8.9) K/mcL BMP 07/22/18 09:40 Sodium 136 Potassium 3.8 Chloride 106 Carbon Dioxide 21 L BUN 19 Creatinine 0.67 Glucose 182 H Calcium 8.6 - ABG Interpretation ABG results: PT/INR, D-dimer PT 15.7 Seconds (9.4-12.1) H 07/23/18 04:54 Consult Discharge Plan - Plan Referrals: Maurisio Ward MD [Primary Care Provider] - (3) Diabetic neuropathy Qualifiers: Diabetes mellitus type: type 2 Diabetes mellitus complication detail: diabetic polyneuropathy Qualified Code(s): E11.42 - Type 2 diabetes mellitus with diabetic polyneuropathy (5) COPD (chronic obstructive pulmonary disease) Qualifiers: COPD type: unspecified COPD Qualified Code(s): J44.9 - Chronic obstructive pulmonary disease, unspecified (6) CAD (coronary artery disease) Qualifiers: Coronary Disease-Associated Artery/Lesion type: [place] artery [place] vs. transplanted heart: [place] heart Associated angina: without angina Qualified Code(s): I25.10 - Atherosclerotic heart disease of [place] coronary artery without angina pectoris (8) HTN (hypertension) Qualifiers: Hypertension type: essential hypertension Qualified Code(s): I10 - Essential (primary) hypertension (9) HLD (hyperlipidemia) Qualifiers: Hyperlipidemia type: pure hypercholesterolemia Qualified Code(s): E78.00 - Pure hypercholesterolemia, unspecified; E78.0 - Pure hypercholesterolemia (11) Bipolar disorder Qualifiers: Active/Remission status: in full remission Most recent bipolar episode type: mixed Qualified Code(s): F31.78 - Bipolar disorder, in full remission, most recent episode mixed
[2018-07-23] MEDS: Tiotropium 18 MCG inhalation IH SCH (10:14)
[2018-07-23] MEDS: Budesonide/Formoterol 160/4.5 1 PUFF INH IH SCH ×2 (10:15→22:18)
[2018-07-23 10:25] LABS: Basophils # 0.1 K/mcL (0.0-0.2); Basophils % 0.6 %; Eosinophils # 0.1 K/mcL (0.0-0.6); Eosinophils % 1.3 %; Hematocrit 36.6 % (35.3-44.9); Hemoglobin 11.7 g/dL (11.5-15.4); Immature Granulocytes % 1.8 % (0-4); Lymphocytes % 22.5 %; Mean Corpuscular Hemoglobin 25.9 pg (28.0-33.3); Monocytes # 0.4 K/mcL (0.0-1.3); Monocytes % 4.3 %; Neutrophils # 6.3 K/mcL (1.6-8.9); Platelet Count 263 K/mcL (140-400); Red Blood Count 4.52 M/mcL (3.82-4.97); Red Cell Distribution Width 15.8 % (11.5-14.5); Segmented Neutrophils % 69.5 %
[2018-07-23 10:45] LABS: BUN/Creatinine Ratio 28 (6-26); Blood Urea Nitrogen 18 mg/dL (6-20); Calcium 9.1 mg/dL (8.6-10.3); Carbon Dioxide 22 mEq/L (23-29); Chloride 105 mEq/L (98-107); Glucose 173 mg/dL (70-105); Osmolality,Calculated 286 (280-300); Potassium 3.6 mEq/L (3.5-5.1); Sodium 135 mEq/L (136-145); eGFR For Non-African Americans > 60 (> 60)
[2018-07-23] MEDS ORDERED: *HR* Warfarin 5 MG TABLET PO ONE (18:00)
[2018-07-23] MEDS: tiZANidine 4 MG TABLET PO SCH (21:17)
[2018-07-23] MEDS: Melatonin 3 MG TABLET PO SCH (21:18)
[2018-07-24 05:43] LABS: INR 1.4; Prothrombin Time 16.3 Seconds (9.4-12.1)
[2018-07-24] MEDS: *HR* Enoxaparin 100 MG/ML SYRINGE SQ SCH ×2 (06:05→18:10)
[2018-07-24] MEDS: Cefepime HCl 2,000 MG in Water for inj. (sterile) 20 ML 20 ML IVP SCH ×2 (06:06→18:12)
[2018-07-24] MEDS: Insulin LISPRO 300 UNITS/3 ML VIAL SQ SCH ×4 (07:36→21:13)
[2018-07-24] MEDS: risperiDONE 1 MG TABLET PO SCH (09:44)
[2018-07-24] MEDS: FLUoxetine 20 MG CAPSULE PO SCH (09:44)
[2018-07-24] MEDS: hydrOXYzine pamoate 25 MG CAPSULE PO SCH ×3 (09:44→21:09)
[2018-07-24] MEDS: Gabapentin 300 MG CAPSULE PO SCH ×3 (09:44→21:07)
[2018-07-24] MEDS: Topiramate 25 MG TABLET PO SCH ×2 (09:44→21:09)
[2018-07-24] MEDS: Sucralfate 1 GM TABLET PO SCH ×2 (09:46→21:07)
[2018-07-24] MEDS: Aspirin 81 MG TAB.CHEW PO SCH (09:46)
[2018-07-24] MEDS: Levalbuterol 1 PUFF INHALER IH SCH ×3 (10:38→22:03)
[2018-07-24] MEDS: Budesonide/Formoterol 160/4.5 1 PUFF INH IH SCH ×2 (10:38→22:03)
[2018-07-24] MEDS: Tiotropium 18 MCG inhalation IH SCH (10:38)
[2018-07-24] MEDS: *HR* OxyCODONE/APAP 5/325 TABLET PO PRN (14:33)
--- NOTE | 2018-07-24 15:53 | Podiatry Progress Note ---
Date of Encounter: 07/24/18 Time of Encounter: 15:50 - Assessment and Plan (1) Diabetic foot infection Current Visit: Yes Status: Acute POD #4 Right 3rd toe amputation 07/20. Wound well approximated with sutures intact. No drainage noted. Minimal erythema noted. Old dressing removed. Applied betadine, adaptic, 4x4 dry gauze, and kerlex. Secured with paper tape. OK to D/C once ID has seen and addressed outpatient ATB regimen. Subjective Principal diagnosis: Diabetic foot infection Interval history: Patient currently up in chair with surgical shoe on eating. Patient able to ambulate to bed without difficulty. Denies any fever, chills, or falls. Objective - Vital Signs Vital Signs: Vital Signs Temp Pulse Resp BP Pulse Ox 07/24/18 14:24 97.8 F 79 15 135/81 98 07/24/18 10:41 98.0 F 86 16 124/76 96 07/24/18 10:38 16 98 07/24/18 06:42 98.1 F 77 15 145/84 97 07/24/18 03:42 97.7 F 78 15 113/72 96 07/23/18 22:18 18 96 07/23/18 20:27 98.5 F 85 18 119/69 96 07/23/18 16:00 98.4 F 93 16 136/84 96 Intake and Output 07/23/18 07/24/18 07/24/18 23:59 07:59 15:59 Intake Total 270 / 270 0 / 0 600 / 600 Output Total 0 / 0 0 / 0 Balance 270 / 270 0 / 0 600 / 600 Intake: IV Fluids 270 / 270 Maxipime 2,000 MG In Water for 20 / 20 inj. (sterile) 20 ML @ 300 mls/ hr IVP Q12HR [facility] Rx#:[id number] Vancocin 1,000 MG In 0.9 % 250 / 250 Sodium Chloride 250 ML @ 167 mls/hr IVPB Q12H [facility] Rx#: [id number] Oral 0 / 0 0 / 0 600 / 600 Output: Urine 0 / 0 0 / 0 Other: Meal Breakfast Percent of Meal Consumed 100% # Voids 1 Weight 107 kg Blood Glucose* 199 132 234 Patient Weight 07/24/18 23:59 Weight 107 kg - Exam Incision: Present: healing, red - Lab Result Diagrams: 07/23/18 09:38 07/23/18 09:38 Labs: Abnormal lab results MCV 81.0 fL (83.0-100.0) L 07/23/18 09:38 MCH 25.9 pg (28.0-33.3) L 07/23/18 09:38 RDW 15.8 % (11.5-14.5) H 07/23/18 09:38 ESR 21 mm/hr (0-15) H 07/16/18 09:55 PT 16.3 Seconds (9.4-12.1) H 07/24/18 05:16 Sodium 135 mEq/L (136-145) L 07/23/18 09:38 Carbon Dioxide 22 mEq/L (23-29) L 07/23/18 09:38 BUN/Creatinine Ratio 28 (6-26) H 07/23/18 09:38 Glucose 173 mg/dL (70-105) H 07/23/18 09:38 POC Glucose 199 mg/dL (70-99) H 07/23/18 20:22 Total Bilirubin 0.2 mg/dL (0.3-1.0) L 07/17/18 03:41 C-Reactive Protein 36 mg/L (Less than 10) H 07/16/18 09:55 Serum Total Protein 5.0 g/dL (6.4-8.9) L 07/17/18 03:41 Albumin 3.1 g/dL (3.5-5.7) L 07/17/18 03:41 Globulin 1.9 g/dL (2.4-3.5) L 07/17/18 03:41 Vancomycin Trough 12 mcg/mL (5-10) H 07/22/18 16:44 Microbiology, Last 48 Hours 07/20/18 22:15 Anaerobic Culture - Preliminary Right Third Toe At this time, no anaerobic growth is present. The culture will be finalized after 5 days of incubation. 07/20/18 22:10 Anaerobic Culture - Preliminary Right Third Toe At this time, no anaerobic growth is present. The culture will be finalized after 5 days of incubation. 07/20/18 22:15 Surgical Biopsy Culture - Final Right Third Toe 07/20/18 22:10 Wound Culture - Final Right Third Toe No growth. Consult Discharge Plan - Plan Additional Instructions: Follow up in office in one week. Change dressing twice weekly at home with adaptic, 4x4 gauze, and nae. Referrals: Maurisio Ward MD [Primary Care Provider] - Giovani Daniel DPM [Partnered Physician] -
--- NOTE | 2018-07-24 17:13 | Infectious Disease Consult ---
Date of Encounter: 07/24/18 Time of Encounter: 17:08 Assessment and Plan (1) Diabetic foot infection Status: Acute Assessment and plan: Causative organism not clear. Was treated previously with doxycycline orally as an outpatient with no improvement Status post I&D and amputation of the right third toe. No osteomyelitis and clean margins Intra-Op cultures no growth to date; keep in mind patient was on antibiotics for 4 days prior to surgery Multiple antibiotic allergies and intolerance to oral antibiotic I had a very long discussion with the patient and gave her the option of doing oral antibiotics and give her Phenergan or Zofran for the nausea that comes with a. Patient was very anxious and she states that she would rather do IV antibiotics. I explained to her the risk that comes with IV antibiotics and concern for possible kidney issues infection of the line DVT of the line and she said that she would rather do that because she is very concerned and she knows she cannot take oral antibiotics at any cost. I did call Dr. Blanco and speak with him and he is okay with that. Recommend placing a power glide Continue vancomycin and cefepime for a total of 2 weeks from surgery day that includes through 08/03/2018 Goal vancomycin trough 10-15 While antibiotic we need to do weekly CBC, BMP, ESR, CRP and Vanco trough Recommended adequate glucose control and smoking cessation for better healing I also discussed with Dr. Daniel (2) Allergy to multiple antibiotics Status: Acute Assessment and plan: penicillin she had a rash about 20 years ago Cefdnir she had the rash about 1 year ago; she did not tolerate cefepime though Cipro she had the rash about 2 years ago with severe pruritus Bactrim she has severe nausea and vomiting that is intractable and she cannot take it. (3) Diabetes mellitus type 2 in obese Status: Chronic (4) Afib Status: Chronic Qualifiers: Atrial fibrillation type: paroxysmal Qualified Code(s): I48.0 - Paroxysmal atrial fibrillation (5) CAD (coronary artery disease) Status: Chronic Qualifiers: Coronary Disease-Associated Artery/Lesion type: [place] artery [place] vs. transplanted heart: [place] heart Associated angina: without angina Qualified Code(s): I25.10 - Atherosclerotic heart disease of [place] coronary artery without angina pectoris (6) Bipolar 2 disorder Status: Acute Infectious Disease HPI - Data of Consult Patient: new to practice Consult date: 07/24/18 Requesting Physician: Ty Blanco Primary Care Provider: Maurisio Ward MD - Consult Narrative Reason for consult: Foot infection History of present illness: Ms. Strogn is a 53 year old female Patient is 60-year-old woman who presented to [facility] on 07/16/2018 for right third toe ischemia. We are consulted on 07/24/2018 for antibiotic recommendations. Patient is a 53-year-old woman with past medical history mentioned below including diabetes mellitus type 2 for about 30 years with adequate control, COPD, history of CVA, atrial fibrillation and coronary artery disease and peripheral neuropathy presented to [facility] with swelling and discoloration of the third toe. Patient has been followed by Dr. Daniel as an outpatient and he gave her doxycycline which apparently she failed treatment with. Patient eventually came to the ED for evaluation. Since admission, patient has been afebrile, tachycardic with no tachypnea. Presenting labs revealed WBC of 8.5 with normal differential. ESR was 21 and kidney function was within normal limit. Patient did have lactic acidosis with lactic acid level of 3.5. Amputation of the right third toe. I did speak with Dr. Daniel and he felt that the bone was not showing any gross osteomyelitis. He also feels that he got adequate margins with noninfected tissue. Intra-Op cultures were negative and pathology report showed no osteomyelitis. What complicates the picture is the patient has multiple drug allergies including cephalosporins, penicillin, ciprofloxacin, Bactrim. To CC: Ty Blanco Past Med Surg Social Fam HX - Past Medical History Medical history: arthritis, atrial fibrillation, COPD, CVA, diabetes, GERD, hyperlipidemia, hypertension, myocardial infarction, other Additional medical history: CAD. chronic back and leg pain. neuropathy legs/ feet Psychiatric history: bipolar, depression, previous psychiatric hospitalization - Past Surgical History Surgical History: angioplasty/stent, appendectomy, cholecystectomy, knee replacement, orthopedic, other Additional surgical history: uterine ablation. bladder stimulator. tonsillectomy. back surgery x5. right knee revision. LOOP monitor. colonoscopy - Social History Smoking Status: Current every day smoker Smokeless Tobacco Status: No Alcohol use: none Drug use: none - Family History Father Adopted: No Family Member Ethnicity: Non- Living Status: Sister Family Member Ethnicity: Non- Living Status: Still Living Grandfather Family Member Ethnicity: Non- Living Status: Hx Family Cardiac Disorders: Yes ([place], CAD) Mother Adopted: No Family Member Ethnicity: Non- Living Status: Hx Family Cardiac Disorders: Yes Hx Family Respiratory Disorders: Yes Hx Family Cancer: No Hx Family GI Disorders: No Hx Family Endocrine Disorder: No Hx Family Neuromuscular Disorders: No Hx Family Neurologic Disorders: No Hx Family HEENT Disorders: No Hx Family Autoimmune Disorders: No Infectious Disease-CN:Meds Budesonide/Formoterol 160/4.5 [Symbicort 160/4.5] 2 puff IH BID 12/30/16 [ History] Insulin ASPART [NovoLOG] 2 - 10 unit SQ TIDWM 12/30/16 [History] Nitroglycerin [Nitrostat] 0.4 mg SL Q5M PRN 12/30/16 [History] Tiotropium [Spiriva] 1 puff IH DAILY 12/30/16 [History] Oxygen 2 l NS HS 03/15/17 [History] Quetiapine Fumarate [Seroquel] 300 mg PO HS 07/20/17 [History] Aspirin 81 mg PO DAILY #30 tab.chew 07/22/17 [Rx] Ipratropium/Albuterol Neb [Duoneb] 3 ml IH BID PRN 10/13/17 [History] Warfarin [Coumadin] 3 mg PO DAILY 10/31/17 [History] FLUoxetine HCl [Prozac] 80 mg PO DAILY 01/02/18 [History] Meclizine HCl [Verticalm] 25 mg PO BID PRN 01/02/18 [History] Pantoprazole Sodium [Protonix] 40 mg PO DAILY 02/13/18 [History] Tizanidine HCl 2 mg PO HS 03/28/18 [History] Topiramate [Topamax] 50 mg PO BID 03/28/18 [History] Gabapentin [Neurontin] 600 mg PO TID 05/06/18 [History] Oxycodone HCl/Acetaminophen [Percocet 5-325 mg Tablet] 1 tab PO Q8H PRN [History] Atorvastatin [Lipitor] 40 mg PO HS 07/16/18 [History] Buspirone HCl [Buspar] 30 mg PO BID 07/16/18 [History] Doxycycline Hyclate [Doxycycline Hyclate] 100 mg PO BID 07/16/18 [History] Gentamicin Sulfate Cream [Gentamicin Sulfate] 1 applic TP BID 10/07/18 [History] Levalbuterol Tartrate [Xopenex Hfa] 2 puff IH Q6H 07/16/18 [History] Melatonin/Pyridoxine HCl (B6) [Melatonin 5 mg Tablet] 3 tab PO HS 07/16/18 [ History] Sucralfate [Carafate] 1 gm PO BID 07/16/18 [History] hydrOXYzine pamoate [HydrOXYzine Pamoate] 50 mg PO TID 07/16/18 [History] risperiDONE [Risperdal] 2 mg PO DAILY 07/16/18 [History] 3 Allergy/AdvReac Type Severity Reaction Status Date / Time baclofen Allergy Itching Verified 07/16/18 11:54 ciprofloxacin [From Cipro] Allergy Hives Verified 07/16/18 11:54 latex Allergy Rash Verified 07/16/18 11:54 Penicillins Allergy Hives Verified 07/16/18 11:54 prednisone Allergy Itching Verified 07/16/18 11:54 sulfamethoxazole Allergy Hives Verified 07/16/18 11:54 [From Bactrim] trimethoprim [From Bactrim] Allergy Hives Verified 07/16/18 11:54 cefdinir AdvReac Vomiting Verified 07/16/18 11:54 Review of systems: 10 point review of systems done, negative other for what mentioned in the history of present illness Exam - Constitutional Vitals: Temp Pulse Resp BP Pulse Ox 97.8 F 79 16 135/81 99 07/24/18 14:24 07/24/18 14:24 07/24/18 16:04 07/24/18 14:24 07/24/18 16:04 General appearance: no acute distress, no febrile - Head Head exam: Present: atraumatic, normocephalic - Eye Eye exam: Present: EOMI, PERRL, sclera anicteric - ENT ENT exam: Present: mucous membranes moist Additional comments: No oral thrush - Neck Neck exam: Present: full ROM. Absent: meningismus - Respiratory Respiratory exam: Present: CTAB. Absent: wheezes - Cardiovascular Cardiovascular exam: Present: irregular rhythm, +S1, +S2 - GI/Abdominal GI/Abdominal exam: Present: normal bowel sounds, soft. Absent: tenderness - Extremities Exam Extremities exam: Present: normal inspection. Absent: joint swelling Additional comments: Right foot surgically wrapped. Toe with sutures intact no erythema no drainage no discoloration - Neurological Exam Neurological exam: Present: alert, oriented X3 Infectious Disease CN: Results - Labs CBC & Chem 7: 07/23/18 09:38 07/23/18 09:38 Cultures: Cultures 07/20/18 22:15 Anaerobic Culture - Preliminary Right Third Toe At this time, no anaerobic growth is present. The culture will be finalized after 5 days of incubation. 07/20/18 22:10 Anaerobic Culture - Preliminary Right Third Toe At this time, no anaerobic growth is present. The culture will be finalized after 5 days of incubation. 07/20/18 22:15 Surgical Biopsy Culture - Final Right Third Toe 07/20/18 22:10 Wound Culture - Final Right Third Toe No growth. 07/19/18 18:00 Anaerobic Culture - Preliminary Right Third Toe At this time, no anaerobic growth is present. The culture will be finalized after 5 days of incubation. 07/19/18 18:00 Wound Culture - Final Right Third Toe No pathogens isolated. 07/20/18 22:10 Gram Stain - Final Right Third Toe Consult Discharge Plan - Plan Additional Instructions: Follow up in office in one week. Change dressing twice weekly at home with adaptic, 4x4 gauze, and nae. Referrals: Maurisio Ward MD [Primary Care Provider] - Giovani Daniel DPM [Partnered Physician] -
[2018-07-24] MEDS ORDERED: *HR* Warfarin 5 MG TABLET PO ONE (18:00)
--- NOTE | 2018-07-24 19:24 | Discharge Summary ---
- NOTES TO OUTPATIENT PROVIDER Notes to Outpatient Provider: Patient to follow-up with podiatry and infectious disease as an outpatient. Patient to follow-up with Coumadin clinic as well for monitoring INR Orders not resulted at time of discharge: Pending orders 07/19/18 18:00 Culture,Anaerobic [RM] Routine 07/20/18 22:10 Culture,Anaerobic [RM] Routine 07/20/18 22:15 Culture,Anaerobic [RM] Routine 07/25/18 04:00 INR/PT [Prothrombin Time INR] [COAG] AM 0400 07/26/18 04:00 INR/PT [Prothrombin Time INR] [COAG] AM 0400 Date of Encounter: 07/24/18 Time of Encounter: 11:00 - Discharge Diagnosis (1) Diabetic foot infection Priority: Primary Status: Acute (2) Diabetes mellitus type 2 in obese Priority: Primary Status: Chronic (3) Diabetic neuropathy Priority: Primary Status: Chronic Qualifiers: Diabetes mellitus type: type 2 Diabetes mellitus complication detail: diabetic polyneuropathy Qualified Code(s): E11.42 - Type 2 diabetes mellitus with diabetic polyneuropathy (4) Hypokalemia Priority: Primary Status: Acute (5) COPD (chronic obstructive pulmonary disease) Priority: Secondary Status: Chronic Qualifiers: COPD type: unspecified COPD Qualified Code(s): J44.9 - Chronic obstructive pulmonary disease, unspecified (6) CAD (coronary artery disease) Priority: Secondary Status: Chronic Qualifiers: Coronary Disease-Associated Artery/Lesion type: [place] artery [place] vs. transplanted heart: [place] heart Associated angina: without angina Qualified Code(s): I25.10 - Atherosclerotic heart disease of [place] coronary artery without angina pectoris (7) PAF (paroxysmal atrial fibrillation) Priority: Secondary Status: Chronic (8) HTN (hypertension) Priority: Secondary Status: Chronic Qualifiers: Hypertension type: essential hypertension Qualified Code(s): I10 - Essential (primary) hypertension (9) HLD (hyperlipidemia) Priority: Secondary Status: Chronic Qualifiers: Hyperlipidemia type: pure hypercholesterolemia Qualified Code(s): E78.00 - Pure hypercholesterolemia, unspecified; E78.0 - Pure hypercholesterolemia (10) Morbid obesity Priority: Secondary Status: Chronic (11) Bipolar disorder Priority: Secondary Status: Chronic Qualifiers: Active/Remission status: in full remission Most recent bipolar episode type : mixed Qualified Code(s): F31.78 - Bipolar disorder, in full remission, most recent episode mixed (12) Smoker Priority: Secondary Status: Chronic Hospital course: Patient is a 53-year-old female with past medical history significant for atrial fibrillation, COPD, CVA, diabetes, GERD, hyperlipidemia, hypertension and myocardial infarction who presented to the ER on 07/16/18 due to infected right toe. She reported of a change in color of her toe in addition to pain and bleeding from the site. In the ER, X-ray on the right foot showed postsurgical change, no clear evidence of osteomyelitis. Patient received 1 dose of vancomycin and she will be admitted for further evaluation and treatment. During hospital stay, podiatry was consulted with recommendation for amputation of right third necrotic toe which was done. Wound and surgical cultures were negative. Patient was treated with IV cefepime and vancomycin during hospital stay. Infectious disease was consulted with recommendations for continued IV cefepime and vancomycin as an outpatient for a total of 10 days from surgery (through ). She will also be discharge with Coumadin 5 mg daily with Lovenox bridge and to follow-up with Coumadin clinic. Patient will need to follow-up with podiatry as an outpatient as well. - Time Spent with Patient Total time spent providing and/or coordinating discharge services: Less than 30 minutes - Discharge Medications Prescriptions: Enoxaparin [Lovenox] 100 mg SQ Q12HCO #30 syringe Cefepime HCl/Dextrose, Iso-Osm [Cefepime 2 gm Injection] 2 gm IV BID #30 mls Metoprolol [Lopressor] 12.5 mg PO BID #60 tablet Vancomycin/0.9 % Sod Chloride [Vancomycin 1 G/100Ml-0.9% NaCl] 1 gm IV BID #30 plast..bag Warfarin [Coumadin] 5 mg PO 1800 #30 tablet Home Medications: Budesonide/Formoterol 160/4.5 [Symbicort 160/4.5] 2 puff IH BID 12/30/16 [ History] Insulin ASPART [NovoLOG] 2 - 10 unit SQ TIDWM 12/30/16 [History] Nitroglycerin [Nitrostat] 0.4 mg SL Q5M PRN 12/30/16 [History] Tiotropium [Spiriva] 1 puff IH DAILY 12/30/16 [History] Oxygen 2 l NS HS 03/15/17 [History] Quetiapine Fumarate [Seroquel] 300 mg PO HS 07/20/17 [History] Aspirin 81 mg PO DAILY #30 tab.chew 07/22/17 [Rx] Ipratropium/Albuterol Neb [Duoneb] 3 ml IH BID PRN 10/13/17 [History] FLUoxetine HCl [Prozac] 80 mg PO DAILY 01/02/18 [History] Meclizine HCl [Verticalm] 25 mg PO BID PRN 01/02/18 [History] Pantoprazole Sodium [Protonix] 40 mg PO DAILY 02/13/18 [History] Tizanidine HCl 2 mg PO HS 03/28/18 [History] Topiramate [Topamax] 50 mg PO BID 03/28/18 [History] Gabapentin [Neurontin] 600 mg PO TID 05/06/18 [History] Oxycodone HCl/Acetaminophen [Percocet 5-325 mg Tablet] 1 tab PO Q8H PRN [History] Atorvastatin [Lipitor] 40 mg PO HS 07/16/18 [History] Buspirone HCl [Buspar] 30 mg PO BID 07/16/18 [History] Gentamicin Sulfate Cream [Gentamicin Sulfate] 1 applic TP BID 07/16/18 [History] Levalbuterol Tartrate [Xopenex Hfa] 2 puff IH Q6H 07/16/18 [History] Melatonin/Pyridoxine HCl (B6) [Melatonin 5 mg Tablet] 3 tab PO HS 07/16/18 [ History] Sucralfate [Carafate] 1 gm PO BID 07/16/18 [History] hydrOXYzine pamoate [HydrOXYzine Pamoate] 50 mg PO TID 07/16/18 [History] risperiDONE [Risperdal] 2 mg PO DAILY 07/16/18 [History] Cefepime HCl/Dextrose, Iso-Osm [Cefepime 2 gm Injection] 2 gm IV BID #30 mls [Rx] Enoxaparin [Lovenox] 100 mg SQ Q12HCO #30 syringe 07/24/18 [Rx] Metoprolol [Lopressor] 12.5 mg PO BID #60 tablet 07/24/18 [Rx] Vancomycin/0.9 % Sod Chloride [Vancomycin 1 G/100Ml-0.9% NaCl] 1 gm IV BID #30 plast..bag 07/24/18 [Rx] Warfarin [Coumadin] 5 mg PO 1800 #30 tablet 07/24/18 [Rx] Allergies/Adverse Reactions: 3 Allergy/AdvReac Type Severity Reaction Status Date / Time baclofen Allergy Itching Verified 07/16/18 11:54 ciprofloxacin [From Cipro] Allergy Hives Verified 07/16/18 11:54 latex Allergy Rash Verified 07/16/18 11:54 Penicillins Allergy Hives Verified 07/16/18 11:54 prednisone Allergy Itching Verified 07/16/18 11:54 sulfamethoxazole Allergy Hives Verified 07/16/18 11:54 [From Bactrim] trimethoprim [From Bactrim] Allergy Hives Verified 07/16/18 11:54 cefdinir AdvReac Vomiting Verified 07/16/18 11:54 Date of admission: 07/16/18 13:32 Primary care physician: Maurisio Ward MD Consults: 07/21/18 07:36 Consult to Physical Therapy [CONS] Routine Comment: Evaluate, develop and implement POC Reason for Consult: gait training in surgical shoe heel weight bearing Does patient have active BEDREST order?: No Is patient medically & hemodynamically stable?: Yes 07/22/18 16:42 Consult to Infectious Diseases [CONS] Routine Consulting Provider: Infectious Disease Bri Reason for Consult: Antibiotic recommendation and duration for discharge Call Completed: No - Constitutional Vitals: Temp Pulse Resp BP Pulse Ox 97.8 F 79 16 135/81 99 07/24/18 14:24 07/24/18 14:24 07/24/18 16:04 07/24/18 14:24 07/24/18 16:04 General appearance: Present: cooperative, A&O X 3, answers questions appropriately Exam: Gen.: Nonacute distress, alert and oriented 3 ENT: Mucosal membranes moist Respiratory: Lungs are clear to auscultation bilaterally without any wheezing rhonchi or rales Cardiovascular: Normal S1 and S2 regular rate rhythm no murmurs rubs or gallops Abdomen: Soft, nontender and nondistended with positive bowel sounds Extremities: Right necrotic third toe Skin: Normal color - Patient Status Disposition: Home Health Service Condition: Good - Discharge Instructions Follow Up With: Maurisio Ward MD [Primary Care Provider] - Giovani Daniel DPM [Partnered Physician] - Additional Instructions: Follow up in office in one week. Change dressing twice weekly at home with elvin, 4x4 gauze, and nae. Follow up with Anticoagulation clinic on Tuesday07/26/18 at 11:45am.
[2018-07-24] MEDS: Melatonin 3 MG TABLET PO SCH (21:08)
[2018-07-24] MEDS: tiZANidine 4 MG TABLET PO SCH (21:10)
[2018-07-25 01:31] LABS: INR 1.6; Prothrombin Time 17.7 Seconds (9.4-12.1)
[2018-07-25] MEDS: Levalbuterol 1 PUFF INHALER IH SCH ×3 (03:36→15:43)
[2018-07-25] MEDS: Cefepime HCl 2,000 MG in Water for inj. (sterile) 20 ML 20 ML IVP SCH ×2 (05:25→16:40)
[2018-07-25] MEDS: *HR* Enoxaparin 100 MG/ML SYRINGE SQ SCH ×2 (05:45→16:49)
[2018-07-25 08:15] VITALS: BP 142/83
[2018-07-25] MEDS: hydrOXYzine pamoate 25 MG CAPSULE PO SCH ×2 (08:20→16:40)
[2018-07-25] MEDS: Topiramate 25 MG TABLET PO SCH (08:20)
[2018-07-25] MEDS: FLUoxetine 20 MG CAPSULE PO SCH (08:20)
[2018-07-25] MEDS: Aspirin 81 MG TAB.CHEW PO SCH (08:20)
[2018-07-25] MEDS: Gabapentin 300 MG CAPSULE PO SCH ×2 (08:21→16:40)
[2018-07-25] MEDS: Sucralfate 1 GM TABLET PO SCH (08:21)
[2018-07-25] MEDS: risperiDONE 1 MG TABLET PO SCH (08:21)
[2018-07-25] MEDS: Insulin LISPRO 300 UNITS/3 ML VIAL SQ SCH ×3 (08:22→16:52)
[2018-07-25 09:39] LABS: BUN/Creatinine Ratio 29 (6-26); Blood Urea Nitrogen 17 mg/dL (6-20); Calcium 9.2 mg/dL (8.6-10.3); Carbon Dioxide 20 mEq/L (23-29); Chloride 106 mEq/L (98-107); Glucose 126 mg/dL (70-105); Osmolality,Calculated 285 (280-300); Potassium 4.1 mEq/L (3.5-5.1); Sodium 136 mEq/L (136-145); eGFR For Non-African Americans > 60 (> 60)
--- NOTE | 2018-07-25 09:44 | Internal Med Progress Note ---
Hospitalist Progress Note - Encounter Date of Encounter: 07/25/18 Time of Encounter: 09:44 - Subjective Interval History: Patient seen and examined this morning. No acute overnight events. Rt toe pain and dicharge improved. Denies cp, sob, n/V/D, abdominal pain, urinary or bowel complains. - Exam Vitals: Temp Pulse Resp BP Pulse Ox 97.1 F L 77 16 142/83 97 07/25/18 08:09 07/25/18 08:09 07/25/18 08:09 07/25/18 08:09 07/25/18 08:09 Exam: Gen: Nonacute distress, AO 3 ENT: MM moist, No lymphadenopathy Respiratory: Lungs are clear to auscultation bilaterally without any wheezing rhonchi or rales Cardiovascular: RRR. Normal S1 and S2 , No MRG Abdomen: Soft, nontender and nondistended with positive bowel sounds Extremities: Right Ft with dressing in place. Skin: Normal color - Assessment and Plan (1) Smoker Current Visit: No Status: Chronic (2) Diabetes mellitus type 2 in obese Current Visit: No Status: Chronic (3) COPD (chronic obstructive pulmonary disease) Current Visit: No Status: Chronic (4) Hypokalemia Current Visit: Yes Status: Acute (5) CAD (coronary artery disease) Current Visit: No Status: Chronic (6) PAF (paroxysmal atrial fibrillation) Current Visit: No Status: Chronic (7) HTN (hypertension) Current Visit: No Status: Chronic (8) HLD (hyperlipidemia) Current Visit: No Status: Chronic (9) Diabetic neuropathy Current Visit: No Status: Chronic (10) Morbid obesity Current Visit: No Status: Chronic (11) Bipolar disorder Current Visit: No Status: Chronic (12) Diabetic foot infection Current Visit: Yes Status: Acute - Summary of Assessment and Plan Summary of Assessment and Plan: Diabetic foot infection - Postop day 5 amputation of right third toe - bone sent to pathology - Surgical and wound cultures NGTD - To continue IV cefepime and IV vancomycin for 10 more days. being arranged by [facility] along with Homehealth - Patient will need to follow-up with podiatry as an outpatient. Pafib - Rate controlled on [employer] - Being bridged with lovenox and coumadin. INR follow up schedule at Coumadin clinic. - Time Spent with Patient Total time spent is greater than 50% in coordination of care (as documented) at patient's floor/unit and/or counseling patient: Internal Medicine: Result - Labs CBC & Chem 7: 07/23/18 09:38 07/25/18 08:39 Labs: BMP 07/25/18 08:39 Sodium 136 Potassium 4.1 Chloride 106 Carbon Dioxide 20 L BUN 17 Creatinine 0.58 L Glucose 126 H Calcium 9.2 - ABG Interpretation ABG results: PT/INR, D-dimer PT 17.7 Seconds (9.4-12.1) H 07/25/18 01:11 Consult Discharge Plan - Plan Additional Instructions: Follow up in office in one week. Change dressing twice weekly at home with adaptic, 4x4 gauze, and nae. Follow up with Anticoagulation clinic on Tuesday07/26/18 at 11:45am. Referrals: Clinic, Anticoagulation [Other] - 07/26/18 11:45 am Maurisio Ward MD [Primary Care Provider] - 07/25/18 2:15 pm Giovani Daniel DPBerta [Partnered Physician] - Prescriptions: Cefepime HCl/Dextrose, Iso-Osm [Cefepime 2 gm Injection] 2 gm IV BID #30 mls Enoxaparin [Lovenox] 100 mg SQ Q12HCO #30 syringe Metoprolol [Lopressor] 12.5 mg PO BID #60 tablet Vancomycin/0.9 % Sod Chloride [Vancomycin 1 G/100Ml-0.9% NaCl] 1 gm IV BID #30 plast..bag Warfarin [Coumadin] 5 mg PO 1800 #30 tablet (3) COPD (chronic obstructive pulmonary disease) Qualifiers: COPD type: unspecified COPD Qualified Code(s): J44.9 - Chronic obstructive pulmonary disease, unspecified (5) CAD (coronary artery disease) Qualifiers: Coronary Disease-Associated Artery/Lesion type: [place] artery [place] vs. transplanted heart: [place] heart Associated angina: without angina Qualified Code(s): I25.10 - Atherosclerotic heart disease of [place] coronary artery without angina pectoris (7) HTN (hypertension) Qualifiers: Hypertension type: essential hypertension Qualified Code(s): I10 - Essential (primary) hypertension (8) HLD (hyperlipidemia) Qualifiers: Hyperlipidemia type: pure hypercholesterolemia Qualified Code(s): E78.00 - Pure hypercholesterolemia, unspecified; E78.0 - Pure hypercholesterolemia (9) Diabetic neuropathy Qualifiers: Diabetes mellitus type: type 2 Diabetes mellitus complication detail: diabetic polyneuropathy Qualified Code(s): E11.42 - Type 2 diabetes mellitus with diabetic polyneuropathy (11) Bipolar disorder Qualifiers: Active/Remission status: in full remission Most recent bipolar episode type: mixed Qualified Code(s): F31.78 - Bipolar disorder, in full remission, most recent episode mixed
[2018-07-25] MEDS: *HR* OxyCODONE/APAP 5/325 TABLET PO PRN (10:03)
[2018-07-25] MEDS ORDERED: Lidocaine -MPF 1% 5 ML AMPUL INFILT ONE (10:05)
[2018-07-25] MEDS: Budesonide/Formoterol 160/4.5 1 PUFF INH IH SCH (10:54)
[2018-07-25] MEDS: Tiotropium 18 MCG inhalation IH SCH (10:57)
--- NOTE | 2018-07-25 15:03 | Physician Discharge Referral ---
Home Health/Hosp Referral Info Transfer to: Home Health - Diagnosis (1) Smoker Status: Chronic (2) Diabetes mellitus type 2 in obese Status: Chronic (3) COPD (chronic obstructive pulmonary disease) Status: Chronic (4) Hypokalemia Status: Acute (5) CAD (coronary artery disease) Status: Chronic (6) PAF (paroxysmal atrial fibrillation) Status: Chronic (7) HTN (hypertension) Status: Chronic (8) HLD (hyperlipidemia) Status: Chronic (9) Diabetic neuropathy Status: Chronic (10) Morbid obesity Status: Chronic (11) Bipolar disorder Status: Chronic (12) Diabetic foot infection Status: Acute - Respiratory Orders Smoking Cessation: Smoking cessation has been advised. For more information, call the [place] Tobacco Quit Line at 6-588-EXHR-NOW. - Services Needed Following services are medically necessary services: Nursing - Transfer Medications Prescriptions: Cefepime HCl/Dextrose, Iso-Osm [Cefepime 2 gm Injection] 2 gm IV BID #30 mls Enoxaparin [Lovenox] 100 mg SQ Q12HCO #30 syringe Metoprolol [Lopressor] 12.5 mg PO BID #60 tablet Vancomycin/0.9 % Sod Chloride [Vancomycin 1 G/100Ml-0.9% NaCl] 1 gm IV BID #30 plast..bag Warfarin [Coumadin] 5 mg PO 1800 #30 tablet Home Medications: Budesonide/Formoterol 160/4.5 [Symbicort 160/4.5] 2 puff IH BID 12/30/16 [ History] Insulin ASPART [NovoLOG] 2 - 10 unit SQ TIDWM 12/30/16 [History] Nitroglycerin [Nitrostat] 0.4 mg SL Q5M PRN 12/30/16 [History] Tiotropium [Spiriva] 1 puff IH DAILY 12/30/16 [History] Oxygen 2 l NS HS 03/15/17 [History] Quetiapine Fumarate [Seroquel] 300 mg PO HS 07/20/17 [History] Aspirin 81 mg PO DAILY #30 tab.chew 07/22/17 [Rx] Ipratropium/Albuterol Neb [Duoneb] 3 ml IH BID PRN 10/13/17 [History] FLUoxetine HCl [Prozac] 80 mg PO DAILY 01/02/18 [History] Meclizine HCl [Verticalm] 25 mg PO BID PRN 01/02/18 [History] Pantoprazole Sodium [Protonix] 40 mg PO DAILY 02/13/18 [History] Tizanidine HCl 2 mg PO HS 03/28/18 [History] Topiramate [Topamax] 50 mg PO BID 03/28/18 [History] Gabapentin [Neurontin] 600 mg PO TID 05/06/18 [History] Oxycodone HCl/Acetaminophen [Percocet 5-325 mg Tablet] 1 tab PO Q8H PRN [History] Atorvastatin [Lipitor] 40 mg PO HS 07/16/18 [History] Buspirone HCl [Buspar] 30 mg PO BID 07/16/18 [History] Gentamicin Sulfate Cream [Gentamicin Sulfate] 1 applic TP BID 07/16/18 [History] Levalbuterol Tartrate [Xopenex Hfa] 2 puff IH Q6H 07/16/18 [History] Melatonin/Pyridoxine HCl (B6) [Melatonin 5 mg Tablet] 3 tab PO HS 07/16/18 [ History] Sucralfate [Carafate] 1 gm PO BID 07/16/18 [History] hydrOXYzine pamoate [HydrOXYzine Pamoate] 50 mg PO TID 07/16/18 [History] risperiDONE [Risperdal] 2 mg PO DAILY 07/16/18 [History] Cefepime HCl/Dextrose, Iso-Osm [Cefepime 2 gm Injection] 2 gm IV BID #30 mls [Rx] Enoxaparin [Lovenox] 100 mg SQ Q12HCO #30 syringe 07/24/18 [Rx] Metoprolol [Lopressor] 12.5 mg PO BID #60 tablet 07/24/18 [Rx] Vancomycin/0.9 % Sod Chloride [Vancomycin 1 G/100Ml-0.9% NaCl] 1 gm IV BID #30 plast..bag 07/24/18 [Rx] Warfarin [Coumadin] 5 mg PO 1800 #30 tablet 07/24/18 [Rx] Allergies/Adverse Reactions: 3 Allergy/AdvReac Type Severity Reaction Status Date / Time baclofen Allergy Itching Verified 07/16/18 11:54 ciprofloxacin [From Cipro] Allergy Hives Verified 07/16/18 11:54 latex Allergy Rash Verified 07/16/18 11:54 Penicillins Allergy Hives Verified 07/16/18 11:54 prednisone Allergy Itching Verified 07/16/18 11:54 sulfamethoxazole Allergy Hives Verified 07/16/18 11:54 [From Bactrim] trimethoprim [From Bactrim] Allergy Hives Verified 07/16/18 11:54 cefdinir AdvReac Vomiting Verified 07/16/18 11:54 Certification: Further, I certify that my clinical findings support that this patient is homebound (i.e. absences from home require considerable and taxing effort and are for medical reasons or evangelical services or infrequently or short duration when for other reasons) because: Homebound Reason: Patient requires assistance of a person or device to safely leave home Attestation: My signature below is to certify that this patient is under my care and that I, or nurse practitioner, or a physician's patient services assistant working with me, has a face-to -face encounter with this patient.
--- NOTE | 2018-07-25 15:07 | Infectious Disease Progress No ---
Date of Encounter: 07/25/18 Time of Encounter: 11:45 - Assessment and Plan (1) Diabetic foot infection Current Visit: Yes Status: Acute Location: Right foot. Likely secondary to chronic nonhealing ulcer. Causative organism: Unclear. Patient was treated previously treated with doxycycline with no improvement. Status post I&D with amputation of the right third toe. No osteo-myelitis and clean margins were noted Intra-Op. Cultures are negative, but the patient was on antibiotics 4 days prior to surgery. We had a long discussion with the patient and gave her options regarding antibiotics IV versus by mouth on discharge. She is adamant about going home on IV antibiotics due to severe nausea and vomiting that she experiences with any oral antibiotics. We did discuss the risks and benefits and alternatives and she is still insistent on getting IV antibiotics. PICC line placed this morning. Continue vancomycin IV. Pharmacy to dose. Goal trough approximately 15. Continue cefepime 2 g IV every 12 hours. Duration of treatment depends on the clinical picture, but at this point would recommend a total of 14 days of IV antibiotics from the date of surgery. Recommend treating through 08/03/18 and then discontinuing. We will need weekly CBC, BUNs/creatinine, ESR, CRP, and vanc trough. Will need weekly PICC line care. No need for follow-up with infectious disease and less there is acute worsening of the patient's status. She is scheduled to follow-up with podiatry in the wound clinic and I have advised her that if they think she needs evaluated at our office to call and schedule an appointment we will get her seen promptly. (2) Allergy to multiple antibiotics Current Visit: Yes Status: Acute Penicillin: She had a rash about 20 years ago. Ceftin ear: She had a rash about one year ago. Cipro: She had a rash about 2 years ago with severe pruritus. Bactrim: She has severe nausea and vomiting that is intractable and she cannot take it. (3) CAD (coronary artery disease) Current Visit: No Status: Chronic Qualifiers: Coronary Disease-Associated Artery/Lesion type: [place] artery [place] vs. transplanted heart: [place] heart Associated angina: without angina Qualified Code(s): I25.10 - Atherosclerotic heart disease of [place] coronary artery without angina pectoris (4) Diabetes mellitus type 2 in obese Current Visit: No Status: Chronic Recommend aggressive glucose monitoring and control to promote wound healing and prevent reinfection. Management per the primary team. (5) Afib Current Visit: No Status: Chronic Qualifiers: Atrial fibrillation type: paroxysmal Qualified Code(s): I48.0 - Paroxysmal atrial fibrillation (6) Bipolar 2 disorder Current Visit: No Status: Acute - Subjective Interval history: Patient seen and examined. No acute events noted overnight. Patient states overall she feels well and wants to go home. She reports minimal pain in the right foot. Denies any fevers or chills or rigors. Denies chest pain, shortness of breath, or cough. Denies nausea, vomiting, diarrhea, or constipation. She denies abdominal pain or urinary complaints. States her appetite is good. She does complain of chronic lower back pain that is at baseline. She denies any oral thrush or any skin rashes. Infect Dis PN-Objective Data - Labs CBC & Chem 7: 07/23/18 09:38 07/25/18 08:39 Labs: Laboratory Results - last 24 hr 07/24/18 07/24/18 07/24/18 07:16 11:03 16:14 PT INR Sodium Potassium Chloride Carbon Dioxide BUN Creatinine Est GFR ( Amer) Est GFR (Non-Af Amer) BUN/Creatinine Ratio Glucose POC Glucose 132 H 234 H 167 H Calculated Osmolality Calcium 07/24/18 07/25/18 07/25/18 19:55 01:11 08:39 PT 17.7 H INR 1.6 Sodium 136 Potassium 4.1 Chloride 106 Carbon Dioxide 20 L BUN 17 Creatinine 0.58 L Est GFR ( Amer) > 60 Est GFR (Non-Af Amer) > 60 BUN/Creatinine Ratio 29 H Glucose 126 H POC Glucose 217 H Calculated Osmolality 285 Calcium 9.2 Cultures: Cultures 07/19/18 18:00 Anaerobic Culture - Final Right Third Toe No anaerobes were recovered. 07/20/18 22:15 Anaerobic Culture - Preliminary Right Third Toe At this time, no anaerobic growth is present. The culture will be finalized after 5 days of incubation. 07/20/18 22:10 Anaerobic Culture - Preliminary Right Third Toe At this time, no anaerobic growth is present. The culture will be finalized after 5 days of incubation. 07/20/18 22:15 Surgical Biopsy Culture - Final Right Third Toe 07/20/18 22:10 Wound Culture - Final Right Third Toe No growth. 07/19/18 18:00 Wound Culture - Final Right Third Toe No pathogens isolated. 07/20/18 22:10 Gram Stain - Final Right Third Toe Exam - Constitutional Vitals: Temp Pulse Resp BP Pulse Ox 97.1 F L 77 16 142/83 97 07/25/18 08:09 07/25/18 08:09 07/25/18 10:58 07/25/18 08:09 07/25/18 10:58 General appearance: cooperative, morbidly obese, no acute distress - Head Head exam: Present: atraumatic, normal inspection, normocephalic - Eye Eye exam: Present: EOMI, normal appearance, PERRL Pupils: Present: normal accommodation - ENT ENT exam: Present: mucous membranes moist - Neck Neck exam: Present: normal inspection - Respiratory Respiratory exam: Present: CTAB. Absent: rales, rhonchi, wheezes - Cardiovascular Cardiovascular exam: Present: RRR, +S1, +S2 - GI/Abdominal GI/Abdominal exam: Present: distended (obese), normal bowel sounds, soft. Absent: tenderness - Extremities Exam Extremities exam: Absent: joint swelling, normal inspection (Right foot dressing and post-op shoe noted.), pedal edema, tenderness - Neurological Exam Neurological exam: Present: alert, oriented X3, no focal deficits - Psychiatric Psychiatric exam: Present: normal affect, normal mood - Skin Skin exam: Present: dry, intact, normal color, warm Consult Discharge Plan - Plan Additional Instructions: Follow up in office in one week. Change dressing twice weekly at home with adaptic, 4x4 gauze, and nae. Follow up with Anticoagulation clinic on Tuesday07/26/18 at 11:45am. Referrals: Clinic, Anticoagulation [Other] - 07/26/18 11:45 am Maurisio Ward MD [Primary Care Provider] - 07/31/18 1:15 pm Giovani Daniel DPM [Partnered Physician] - 08/01/18 7:50 am Erica Maciel MD [Partnered Physician] - Prescriptions: Enoxaparin [Lovenox] 100 mg SQ Q12HCO #30 syringe Cefepime HCl/Dextrose, Iso-Osm [Cefepime 2 gm Injection] 2 gm IV BID #30 mls Metoprolol [Lopressor] 12.5 mg PO BID #60 tablet Vancomycin/0.9 % Sod Chloride [Vancomycin 1 G/100Ml-0.9% NaCl] 1 gm IV BID #30 plast..bag Warfarin [Coumadin] 5 mg PO 1800 #30 tablet - Attending Attestation I examined this patient and my medical decision-making was reviewed with the Resident Physician. I agree with the documented findings, disposition and treatment plan as described except to the extent set forth below.
[2018-07-25] MEDS ORDERED: *HR* Warfarin 5 MG TABLET PO ONE (18:00)
[2018-07-25] MEDS ORDERED: Aminoglycoside Consult 1 EACH MC ONE (19:01)
== END 2018-07-25 19:02 | disposition home health service (06) | DRG 256 ==
LOC: EMEROOARM 09:46 → 3ANU 09:46 → SUATTDRO 13:32
PROVIDERS: ADMIT Student in an Organized Health Care Education/Training Program; ATTEND Internal Medicine

== ENCOUNTER 2019-01-25 21:14 | Observation (INO) ==
--- NOTE | 2019-01-25 22:11 | Emergency Department Note ---
Disposition Clinical Impression: Left arm numbness, Left arm pain, Slurred speech Headache Qualifiers: Headache type: unspecified Headache chronicity pattern: acute headache Intractability: not intractable Qualified Code(s): R51 - Headache Disposition: Admitted As Inpatient Condition: Fair General Adult HPI - General Chief complaint: ED Neuro Symptoms/Deficit Stated complaint: L. sided pain Time Seen by Provider: 01/25/19 21:39 Source: patient, family Mode of arrival: private vehicle Limitations: no limitations Nursing Notes Reviewed: Yes Vital Signs Reviewed: Yes - History of Present Illness HPI Narrative: 53-year-old female with past medical history including TIA, CVA, atrial fibrillation on Coumadin, coronary artery disease with stent placements, diabetes mellitus, hypertension presenting with chief complaint of left sided numbness and pain since 2044. Patient's also notes a slurred speech and states it is hard for him to understand her. She states that she feels like her tongue is swollen. She also complains of left-sided chest pain, no shortness of breath or nausea. She began to develop her typical migraine headache as she arrived to the waiting room. Patient states she has a history of TIAs with similar symptoms as well as complex migraines which presents similarly. She takes Coumadin for atrial fibrillation. She also takes aspirin. Pain Scale: 5 - Related Data Home Medications Medication Instructions Recorded Confirmed Aspirin [Adult Aspirin Regimen] 81 mg PO DAILY 01/21/19 01/25/19 Atorvastatin [Lipitor] 40 mg PO HS 01/21/19 01/25/19 Buspirone HCl [Buspar] 30 mg PO BID 01/21/19 01/25/19 FLUoxetine HCl [Fluoxetine HCl] 80 mg PO DAILY 01/21/19 01/25/19 Metoprolol Succinate [Toprol Xl] 12.5 mg PO BID 01/21/19 01/25/19 Pantoprazole Sodium [Protonix] 40 mg PO DAILY 01/21/19 01/25/19 Quetiapine Fumarate [SEROquel] 300 mg PO HS 01/21/19 01/25/19 RX: Tizanidine HCl [Zanaflex] 2 mg PO HS 01/21/19 01/25/19 Rizatriptan Benzoate [[employer] Supervisor] 10 mg PO PRN PRN 01/21/19 01/25/19 Topiramate [Topamax] 50 mg PO BID 01/21/19 01/25/19 Warfarin [Coumadin] 3 mg PO SUTUTHSA 01/21/19 01/25/19 risperiDONE [Risperdal] 2 mg PO DAILY 01/21/19 01/25/19 Fluticasone Propionate Nasal 1 spr NS DAILY PRN 01/25/19 01/25/19 [Flonase] Gabapentin 800 mg PO TID 01/25/19 01/25/19 Insulin ASPART [Novolog Flexpen] 2 - 8 unit SQ DAILY 01/25/19 01/25/19 Insulin Glargine,Hum.rec.anlog 36 unit SQ HS 01/25/19 01/25/19 [Lantus Solostar] Ipratropium/Albuterol Sulfate 3 ml IH Q4H PRN 01/25/19 01/25/19 [Iprat-Albut 0.5-3(2.5) mg/3 ml] Meclizine HCl [Verticalm] 25 mg PO BID PRN 01/25/19 01/25/19 Nitroglycerin 0.4 mg SL Q5M PRN MDD [id number] call 01/25/19 01/25/19 911 Propranolol [Inderal] 10 mg PO DAILY PRN 01/25/19 01/25/19 RX: Guanfacine HCl 2 mg PO HS 01/25/19 01/25/19 RX: Melatonin 5 mg PO HS PRN 01/25/19 01/25/19 Warfarin Sodium 4.5 mg PO MOWEFR 01/25/19 01/25/19 hydrOXYzine HCl [Hydroxyzine HCl] 25 mg PO TID PRN 01/25/19 01/25/19 Allergies Allergy/AdvReac Type Severity Reaction Status Date / Time baclofen Allergy Itching Verified 01/25/19 21:21 ciprofloxacin [From Cipro] Allergy Hives Verified 01/25/19 21:21 doxycycline Allergy Hives Verified 01/25/19 21:21 latex Allergy Rash Verified 01/25/19 21:21 Penicillins Allergy Hives Verified 01/25/19 21:21 prednisone Allergy Itching Verified 01/25/19 21:21 Sulfa (Sulfonamide Allergy Hives Verified 01/25/19 21:21 Antibiotics) sulfamethoxazole Allergy Hives Verified 04/18/19 21:21 [From Bactrim] trimethoprim [From Bactrim] Allergy Hives Verified 01/25/19 21:21 cefdinir AdvReac Vomiting Verified 01/25/19 21:21 All systems ED: reviewed and negative except as stated. Review of Systems: As Per HPI Constitutional: Reports: weakness. Denies: fever, chills, weight change Eyes: Denies: vision change ENT ED: Denies: dysphagia Cardiovascular: Reports: chest pain. Denies: palpitations Respiratory: Denies: cough, dyspnea Gastrointestinal: Denies: abdominal pain, nausea, vomiting, diarrhea Genitourinary: Denies: dysuria Musculoskeletal: Denies: back pain Neurological: Reports: headache, weakness, numbness, other (slurred speech) Past Medical History - Past Medical History Attestation: Yes The following information was validated with the patient. Source: patient Medical history: Reports: atrial fibrillation, COPD, CVA, myocardial infarction, TIA Surgical history: Reports: angioplasty/stent, appendectomy, cholecystectomy, knee replacement, other Psychiatric history: Reports: anxiety, depression, prior suicide attempt, previous psychiatric hospitalization [employer] history: Reports: bilateral 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 - Social History Smoking Status: Current every day smoker Smokeless Tobacco Status: No Alcohol use: Reports: rarely Drug use: Reports: none Physical Exam - General Limitations: no limitations General appearance: alert, in no apparent distress - Head Head exam: atraumatic, normocephalic, normal inspection - Eye Eye exam: Present: normal appearance, PERRL, EOMI. Absent: conjunctival injection - ENT ENT exam: normal exam, normal oropharynx, mucous membranes moist, other (no swelling of the tongue. Airway patent. No posterior pharyngeal edema or swelling) - Neck Neck exam: Present: normal inspection, trachea midline - Chest Chest inspection: Present: normal inspection, symmetric chest wall rise - Respiratory Respiratory exam: Present: normal lung sounds bilaterally. Absent: respiratory distress, wheezes - Cardiovascular Cardiovascular exam: Present: regular rate, normal rhythm - Abdominal Exam Abdominal exam: Present: soft, Non-Tender. Absent: distention - Extremities Exam Extremities exam: Present: normal capillary refill. Absent: calf tenderness - Neurological Exam Neurological exam: Present: alert, oriented X3, CN II-XII intact, normal gait, other (NIHSS score 1. slurred speech). Absent: motor sensory deficit - Expanded Neurological Exam Cerebellar function: finger to nose: Normal, heel to zheng: Normal Motor strength - LUE: 5/5 Motor strength - RUE: 5/5 Motor strength - LLE: 5/5 Motor strength - RLE: 5/5 Upper motor neuron exam: glenny neglect: Absent bilaterally, pronator drift: Absent bilaterally Sensory exam upper extremity: light touch: Normal Sensory exam lower extremity: light touch: Normal - Psychiatric Psychiatric exam: Present: normal affect, normal mood - Skin Skin exam: Present: warm, dry, intact Course Vital Signs Temperature 97.8 F 01/25/19 21:18 Pulse Rate 115 01/25/19 21:18 Respiratory Rate 20 01/25/19 21:18 Blood Pressure 120/70 01/25/19 21:18 O2 Sat by Pulse Oximetry 95 01/25/19 21:18 Temperature 97.8 F 01/25/19 21:18 Pulse Rate 91 01/26/19 00:33 Respiratory Rate 17 01/26/19 00:33 Blood Pressure 106/66 01/26/19 00:33 O2 Sat by Pulse Oximetry 93 01/26/19 00:33 Oxygen Delivery Oxygen Delivery Room Air Medical Decision Making - MDM Narrative Medical decision making narrative: Patient has history of TIA and CVA, complex migraines. She follows up with Neuorlogy Dr. Galvez. Slurred speech and left arm pain, numbness started at 2044. Patient also complaining of chest pain. Vitals stable. NIHSS score 1 with slurred speech. Stroke alert called. EKG shows no ST elevation or depression. Discussed with [facility] at 2222 with the results of the CT scan head. No acute intracranial abnormality. [facility], Dr. Talbot is on stroke tele at this time. CTA head and neck will be obtained. Patient is not a TPA candidate. Her INR is therapeutic on Coumadin. CTA head and neck shows no cranial arterial obstruction or stenosis and no cervical vasculature abnormality. Updated Dr. Talbot at 00:10 the results of CTA. Discussed with [facility]. We will admit the patient and neurology will be consult it and evaluate the patient in the morning. Hospitalist paged. Tylenol for headache. Patient states her slurred speech and pain is improving. Discussed with Dr. Messina at 00 45 who accepts admission. - Medical Records Medical records reviewed: Yes I reviewed the patient's medical records. - Lab Data Lab results reviewed: Yes I reviewed the patient's lab results. Result diagrams: 01/25/19 22:09 01/25/19 22:09 Lab Results 01/25/19 01/25/19 01/25/19 Range/Units 22:09 22:09 22:09 WBC 10.9 (4.3-11.1) K/mcL RBC 4.26 (3.82-4.97) M/mcL Hgb 11.5 (11.5-15.4) g/dL Hct 35.7 (35.3-44.9) % MCV 83.8 (83.0-100.0) fL MCH 27.0 L (28.0-33.3) pg MCHC 32.2 (31.6-35.5) g/dL RDW 15.4 H (11.5-14.5) % Plt Count 266 (140-400) K/mcL MPV 9.9 (9.4-12.4) fL PT 31.3 H (9.4-12.1) Seconds INR 2.8 APTT 53.7 H (26.0-36.0) Seconds Sodium 137 (136-145) mEq/L Potassium 3.9 (3.5-5.1) mEq/L Chloride 107 (98-107) mEq/L Carbon Dioxide 23 (23-29) mEq/L BUN 7 (6-20) mg/dL Creatinine 0.84 (0.60-1.20) mg/dL Est GFR ( Amer) > 60 (> 60) Est GFR (Non-Af Amer) > 60 (> 60) BUN/Creatinine Ratio 8 (6-26) Glucose 323 H (70-105) mg/dL Calculated Osmolality 294 (280-300) Calcium 8.2 L (8.6-10.3) mg/dL Troponin I < 0.03 (< 0.04) ng/mL - Radiology Data Radiology results reviewed: Yes I reviewed the patient's radiology results. - EKG Data EKG #1 EKG attestation: Yes I reviewed and interpreted this EKG. EKG results narrative: EKG obtained at 2156 shows sinus rhythm with heart rate 97, [place] interval 163, QRS duration 140, QTc 520. Left bundle branch block. No ST elevation or depression. Critical Care Time Critical Care Time: Yes Total Critical Care Time: 35 Attestation: Acute altered mental status with focal neurological deficits rule out acute cerebrovascular accident Attestation Statement - Attestation Attestation: Dr. Guevara note: Patient was seen in conjunction with ER resident Dr. Sofia; please see her charting for complete documentation. I spent [id number] time with the patient and I agree with the patient's treatment and disposition. All CT scan results reviewed. Patient's change in speech began an hour and half prior to arrival and resolved within an hour in the ER. Therapeutic INR on Coumadin for atrial fibrillation noted. Admitted with improved symptoms to the hospitalist after we spoke with the consulting neurologist.
[2019-01-25 22:19] LABS: Hematocrit 35.7 % (35.3-44.9); Hemoglobin 11.5 g/dL (11.5-15.4); Mean Corpuscular HGB Conc 32.2 g/dL (31.6-35.5); Mean Corpuscular Volume 83.8 fL (83.0-100.0); Mean Platelet Volume 9.9 fL (9.4-12.4); Platelet Count 266 K/mcL (140-400); Red Blood Count 4.26 M/mcL (3.82-4.97); Red Cell Distribution Width 15.4 % (11.5-14.5)
[2019-01-25 22:26] LABS: INR 2.8; Prothrombin Time 31.3 Seconds (9.4-12.1)
[2019-01-25 22:29] LABS: Activated Partial Thrombo Time 53.7 Seconds (26.0-36.0)
[2019-01-25 22:34] LABS: BUN/Creatinine Ratio 8 (6-26); Blood Urea Nitrogen 7 mg/dL (6-20); Calcium 8.2 mg/dL (8.6-10.3); Carbon Dioxide 23 mEq/L (23-29); Chloride 107 mEq/L (98-107); Glucose 323 mg/dL (70-105); Osmolality,Calculated 294 (280-300); Potassium 3.9 mEq/L (3.5-5.1); Sodium 137 mEq/L (136-145); eGFR For Non-African Americans > 60 (> 60)
[2019-01-25] MEDS ORDERED: Isovue-370 500 ML BOTTLE IVP ONE (22:35)
[2019-01-25 22:41] LABS: Troponin I < 0.03 ng/mL (< 0.04)
[2019-01-26] MEDS ORDERED: Ondansetron ODT 4 MG TAB.RAPDIS SL ONE (00:56)
[2019-01-26] MEDS ORDERED: Ibuprofen 600 MG TABLET PO ONE ×2 (00:57→22:49)
[2019-01-26] MEDS ORDERED: Naloxone 0.4 MG/ML INJ IVP PRN (03:53)
[2019-01-26] MEDS ORDERED: D5% in Water 1,000 ML IVC PRN (04:04)
[2019-01-26] MEDS ORDERED: *HR* Dextrose 50 % in Water (Syg) 50 ML SYRINGE IVP PRN (04:04)
[2019-01-26] MEDS ORDERED: Dextrose Gel 15 GM/37.5 ML TUBE PO PRN ×2 (04:04)
--- NOTE | 2019-01-26 04:49 | Internal Med History&Physical ---
Date of Encounter: 01/26/19 Time of Encounter: 03:00 Internal Medicine - H&P: HPI Chief complaint: Stroke Like Symptoms Admitted From: Home Plans for Post Hospital Care: Home History of present illness: Ms. Strong is a 53 year old female with past medical history significant for CVA, TIA, complex migraines, CAD with stents x1, MD, afib on coumadin, hypertension, diabetes, COPD, anxiety, depression, and tobacco abuse who presents for complaints of left arm numbness and slurred speech followed by throbbing left arm and left sided chest pain last night. Around an hour after symptom onset she also developed a headache. Has history of complex migraines which sometimes present with stroke like symptoms prior to onset. NIHSS score in ER was 1 for slurred speech. ER performed head CT, and CTA of head and neck and called stroke alert with tele stroke and was not an interventional candidate and was advised to remain at [facility] for further workup. Patient is on coumadin for afib with a currently therapeutic INR. Head CT showed no acute intracranial abnormality. CTA of head and neck showed mild plaque both carotid bifurcation, otherwise no hemodynamic stenosis or occlusion identified involving intracranial arterial circulation or the cervical arterial vasculature. ER contacted on-call [place] neurology Dr. Danielle who agreed to see patient in consult. ER reported EKG as sinus rhythm with left bundle branch block and no ST elevation or depression. Symptoms began to resolve while in ER. Received Tylenol, Motrin, Zofran while in ER. Reports headache is now nearly resolved. Currently denies any numbness, tingling, chest pain, shortness of breath, cough, abdominal pain, nausea, bowel or bladder changes. Checks blood sugars regularly at home and reports they have been averaging in the 100s. Also checks blood pressures regularly at home and reports they have been averaging in the 120's systolic. Had echocardiogram completed in October 2017 which showed a 55% EF. Follows regularly with PCP, neurology, cardiology, and psychiatry. Past Med Surg Social Fam HX - Past Medical History Medical history: atrial fibrillation, COPD, CVA, diabetes, hypertension, myocardial infarction, TIA Additional medical history: CAD. SNEHA with CPAP. diverticulitis. chronic back and leg pain Psychiatric history: anxiety, depression, prior suicide attempt, previous psychiatric hospitalization - Past Surgical History Surgical History: angioplasty/stent, appendectomy, cholecystectomy, knee replacement, other Additional surgical history: back surgery x5, 2015. bladdersling. Tonsillectomy. Bladder stimulator 2014. Loop Recorder-2017. right foot surgery 05/24/2018, right toe #3 amputation 07/20/18. Left PIPJ AD 09/2018 - Social History Smoking Status: Current every day smoker Packs per day: 1 Smokeless Tobacco Status: No Alcohol use: rarely Drug use: none - Family History Father Adopted: No Family Member Ethnicity: Non- Living Status: Sister Family Member Ethnicity: Non- Living Status: Still Living Grandfather Family Member Ethnicity: Non- Living Status: Hx Family Cardiac Disorders: Yes (MD, CAD) Mother Adopted: No Family Member Ethnicity: Non- Living Status: Hx Family Cardiac Disorders: Yes Hx Family Respiratory Disorders: Yes Hx Family Cancer: No Hx Family GI Disorders: No Hx Family Endocrine Disorder: No Hx Family Neuromuscular Disorders: No Hx Family Neurologic Disorders: No Hx Family HEENT Disorders: No Hx Family Autoimmune Disorders: No Internal Medicine - H&P: Meds Aspirin [Adult Aspirin Regimen] 81 mg PO DAILY 01/21/19 [History] Atorvastatin [Lipitor] 40 mg PO HS 01/21/19 [History] Buspirone HCl [Buspar] 30 mg PO BID 01/21/19 [History] FLUoxetine HCl [Fluoxetine HCl] 80 mg PO DAILY 01/21/19 [History] Metoprolol Succinate [Toprol Xl] 12.5 mg PO BID 01/21/19 [History] Pantoprazole Sodium [Protonix] 40 mg PO DAILY 01/21/19 [History] Quetiapine Fumarate [SEROquel] 300 mg PO HS 01/21/19 [History] Rizatriptan Benzoate [Maxalt Carbonizer Tester] 10 mg PO PRN PRN 01/21/19 [History] Tizanidine HCl [Zanaflex] 2 mg PO HS 01/21/19 [History] Topiramate [Topamax] 50 mg PO BID 01/21/19 [History] Warfarin [Coumadin] 3 mg PO SUTUTHSA 01/21/19 [History] risperiDONE [Risperdal] 2 mg PO DAILY 01/21/19 [History] Fluticasone Propionate Nasal [Flonase] 1 spr NS DAILY PRN 01/25/19 [History] Gabapentin 800 mg PO TID 01/25/19 [History] Guanfacine HCl 2 mg PO HS 01/25/19 [History] Insulin ASPART [Novolog Flexpen] 2 - 8 unit SQ DAILY 01/25/19 [History] Insulin Glargine,Hum.rec.anlog [Lantus Solostar] 36 unit SQ HS 01/25/19 [History] Ipratropium/Albuterol Sulfate [Iprat-Albut 0.5-3(2.5) mg/3 ml] 3 ml IH Q4H PRN 01/25/19 [History] Meclizine HCl [Verticalm] 25 mg PO BID PRN 01/25/19 [History] Melatonin 5 mg PO HS PRN 01/25/19 [History] Nitroglycerin 0.4 mg SL Q5M PRN MDD [id number] call 911 01/25/19 [History] Propranolol [Inderal] 10 mg PO DAILY PRN 01/25/19 [History] Warfarin Sodium 4.5 mg PO MOWEFR 01/25/19 [History] hydrOXYzine HCl [Hydroxyzine HCl] 25 mg PO TID PRN 01/25/19 [History] Allergy/AdvReac Type Severity Reaction Status Date / Time baclofen Allergy Itching Verified 01/25/19 21:21 ciprofloxacin [From Cipro] Allergy Hives Verified 01/25/19 21:21 doxycycline Allergy Hives Verified 01/25/19 21:21 latex Allergy Rash Verified 01/25/19 21:21 Penicillins Allergy Hives Verified 01/25/19 21:21 prednisone Allergy Itching Verified 01/25/19 21:21 Sulfa (Sulfonamide Allergy Hives Verified 01/25/19 21:21 Antibiotics) sulfamethoxazole Allergy Hives Verified 01/25/19 21:21 [From Bactrim] trimethoprim [From Bactrim] Allergy Hives Verified 01/25/19 21:21 cefdinir AdvReac Vomiting Verified 01/25/19 21:21 All Systems PM: A 10-system review of systems was performed and is negative for pertinent findings except as documented above in the HPI. - Constitutional Vitals: Temp Pulse Resp BP Pulse Ox 98.8 F 91 19 122/67 96 01/26/19 01:36 01/26/19 01:36 01/26/19 01:36 01/26/19 01:36 01/26/19 02:16 Exam: General: Alert and oriented. Skin:Normal color, no lesions. Chronic red rash noted to right lower extremity, following with PCP for same. HEENT:Pupils equal, round and reactive. Cardiovascular:Heart sounds distant, no rubs, murmurs or gallops. No JVD. Pulse regular. Lungs:Breath sounds decreased, no wheezes or crackles. Abdomen:Soft, non-tender, no rigidity. Extremities:No deformity, no edema or tenderness, no joint swelling or clubbing. Neurological:Normal cognition and motor skills. GCS 15. NIHSS 0. Pulses:Carotid and radial pulses normal +2. Rest of the physical exam is non contributory. Internal Med - H&P Results - Labs CBC & Chem 7: 01/25/19 22:09 01/25/19 22:09 Labs: Short CBC 01/25/19 Range/Units 22:09 WBC 10.9 (4.3-11.1) K/mcL Hgb 11.5 (11.5-15.4) g/dL Hct 35.7 (35.3-44.9) % Plt Count 266 (140-400) K/mcL BMP 01/25/19 22:09 Sodium 137 Potassium 3.9 Chloride 107 Carbon Dioxide 23 BUN 7 Creatinine 0.84 Glucose 323 H Calcium 8.2 L Cardiac Enzymes 01/25/19 Range/Units 22:09 Troponin I < 0.03 (< 0.04) ng/mL - Impressions ITS Impressions Head CT 01/25/19 21:58 IMPRESSION: No acute intracranial abnormality. D/ / 01/25/2019 22:21:29 Elliott Gonsalez / hugo Interpreting Provider: Elliott Gonsalez Head CTA 01/25/19 22:35 IMPRESSION: Mild plaque both carotid bifurcation. Otherwise no hemodynamic stenosis or occlusion identified involving intracranial arterial circulation or the cervical arterial vasculature. D/ / Kristofer Emery / Kristofer Emery Interpreting Provider: Kristofer Emery Neck CTA 01/25/19 22:35 IMPRESSION: Mild plaque both carotid bifurcation. Otherwise no hemodynamic stenosis or occlusion identified involving intracranial arterial circulation or the cervical arterial vasculature. D/ / Kristofer Emery / Kristofer Emery Interpreting Provider: Kristofer Emery - Assessment and Plan (1) Stroke-like symptoms Current Visit: Yes Status: Acute Assessment and plan: Currently resolved. Presented with left arm numbness followed by pain with slurred speech followed by headache. Stroke alert called in ER, not interventional candidate. Neurology consulted by ER, to see this a.m. Head CT and CTA head and neck performed in ER. Continuous cardiac monitoring. Echocardiogram ordered. (2) Chest pain Current Visit: Yes Status: Acute Assessment and plan: Currently resolved. Continuous cardiac monitoring. Initial troponin in ER negative, serial troponins ordered. Echocardiogram ordered. Qualifiers: Chest pain type: unspecified Qualified Code(s): R07.9 - Chest pain, unspecified (3) Tobacco abuse Current Visit: Yes Status: Chronic Assessment and plan: Cessation encouraged. Nicotine patch offered. (4) Headache Current Visit: Yes Status: Acute Assessment and plan: Acute on chronic. Nearly resolved at time of assessment. Tylenol PRN. Qualifiers: Headache type: unspecified Headache chronicity pattern: unspecified pattern Intractability: not intractable Qualified Code(s): R51 - Headache (5) Diabetes mellitus Current Visit: Yes Status: Chronic Assessment and plan: Hold home diabetic medications. Accucheck ACHS. Sliding scale insulin order. Qualifiers: Diabetes mellitus type: type 2 Qualified Code(s): E11.9 - Type 2 diabetes mellitus without complications (6) DVT prophylaxis Current Visit: Yes Status: Acute Assessment and plan: Continue coumadin. - Time Spent With Patient Total time spent is greater than 50% in coordination of care (as documented) at patient's floor/unit and/or counseling patient:
[2019-01-26 06:58] LABS: Basophils % 0.5 %; Eosinophils # 0.2 K/mcL (0.0-0.6); Eosinophils % 2.1 %; Hematocrit 33.9 % (35.3-44.9); Hemoglobin 10.9 g/dL (11.5-15.4); Immature Granulocytes % 0.9 % (0-4); Lymphocytes # 2.1 K/mcL (0.6-4.6); Lymphocytes % 28.3 %; Mean Corpuscular HGB Conc 32.2 g/dL (31.6-35.5); Mean Corpuscular Volume 84.1 fL (83.0-100.0); Mean Platelet Volume 10.1 fL (9.4-12.4); Monocytes # 0.6 K/mcL (0.0-1.3); Monocytes % 7.6 %; Neutrophils # 4.5 K/mcL (1.6-8.9); Platelet Count 238 K/mcL (140-400); Red Blood Count 4.03 M/mcL (3.82-4.97); Red Cell Distribution Width 15.4 % (11.5-14.5); Segmented Neutrophils % 60.6 %
[2019-01-26 07:06] LABS: INR 2.8
[2019-01-26 07:18] LABS: Alanine Aminotransferase 39 Units/L (7-52); Albumin 3.3 g/dL (3.5-5.7); Albumin/Globulin Ratio 1.6 (1.1-2.2); Alkaline Phosphatase 101 Units/L (34-104); Aspartate Amino Transferase 29 Units/L (13-39); BUN/Creatinine Ratio 9 (6-26); Bilirubin,Total 0.2 mg/dL (0.3-1.0); Blood Urea Nitrogen 9 mg/dL (6-20); Calcium 8.5 mg/dL (8.6-10.3); Carbon Dioxide 27 mEq/L (23-29); Chloride 105 mEq/L (98-107); Globulin 2.1 g/dL (2.4-3.5); Glucose 193 mg/dL (70-105); Osmolality,Calculated 298 (280-300); Potassium 3.9 mEq/L (3.5-5.1); Sodium 142 mEq/L (136-145); Total Protein 5.4 g/dL (6.4-8.9); Troponin I < 0.03 ng/mL (< 0.04); eGFR For Non-African Americans > 60 (> 60)
[2019-01-26] MEDS: Insulin LISPRO 300 UNITS/3 ML VIAL SQ SCH ×3 (08:20→16:41)
--- NOTE | 2019-01-26 09:42 | Neurology - Consult Note ---
Date of Encounter: 01/26/19 Time of Encounter: 09:37 Assessment and Plan (1) Stroke-like symptoms Current Visit: Yes Status: Acute Presented with slurred speech, left arm pain and parasthesias; Reporting chest pain as well. Sx lasted 4 hours and then subsided; subsequently developed a migraine. CTA head/neck without flow limiting stenosis, no aneurysm CT head unremarkable Neuro exam reveal focal weakness and drift of Lt arm, otherwise no focal defici ts Will need CVA r/o given sx, hx and risk factors Unable to complete brain MRI d/t bladder stimulator; Given suspicion of recurrent CVA rec transfer to [facility] or [facility] for MRI of brain If confirmed CVA Patient may need cardio consultation in the future to discuss watchman procedure. TTE- EF 55% - - Mild LVH, Mod LVDD, Nl RV structure and function, Mild TR, no PHTN. C/w ASA, Statin (takes at home) and AC with Coumadin per PT dosing. Neuro assessment per protocol Medical and supportive care DDX; TIA vs CVA; has not yet been 24 hourse since sx onset. Sx are improving but left arm deficits persist. Given risk factors and hx along with new left arm weakness and drift I am concerned that she may have had an acute neurovascular event. I have discussed findings and plan with the IM physician. See plan outlined above. (2) Left arm numbness Current Visit: Yes Status: Acute (3) Left arm pain Current Visit: Yes Status: Acute (4) Headache Current Visit: Yes Status: Acute Qualifiers: Headache type: unspecified Headache chronicity pattern: unspecified pattern Intractability: not intractable Qualified Code(s): R51 - Headache History of Present Illness Chief complaint: left arm pain, chest pain, left are numbness HPI: Ms. Strong is a 53 year old female with a PMH of CVA, TIAs, complex migraines, CAD with ID and stent 1, A. fib on AC with Coumadin , HTN, DM 2, COPD, anxiety, depression, tobacco abuse. She presents to [facility] [place] with a CC of left arm pain, chest pain, slurred speech, and paresthesias and weakness of left arm. She reports that her symptoms began at approximately 8:45pm yesterday evening. She notes that the symptoms lasted approximately 4 hours and when they subsided she developed a severe migraine headache. At the time of my assessment this morning she reports that the symptoms have resolved. However, she does appear to have some focal weakness in the left arm and evidence of left arm drift. CTA of the head and neck revealed mild plaque with both carotid bifurcation however there is no flow limiting stenosis or intracranial stenosis. CT of the head negative for acute intracranial abnormalities. Given her presentation and findings of focal weakness neurology will follow and workup for stroke. Past Med Surg Social Fam HX - Past Medical History Medical history: atrial fibrillation, COPD, CVA, diabetes, hypertension, myocardial infarction, TIA Additional medical history: CAD. SNEHA with CPAP. diverticulitis. chronic back and leg pain Psychiatric history: anxiety, depression, prior suicide attempt, previous psychiatric hospitalization - Past Surgical History Surgical History: angioplasty/stent, appendectomy, cholecystectomy, knee replacement, other Additional surgical history: back surgery x5, 2014. bladdersling. Tonsillectomy. Bladder stimulator 2013. Loop Recorder-2016. right foot surgery 05/24/2018, right toe #3 amputation 07/20/18. Left PIPJ AD 09/2018 - Social History Smoking Status: Current every day smoker Packs per day: 1 Smokeless Tobacco Status: No Alcohol use: rarely Drug use: none - Family History Father Adopted: No Family Member Ethnicity: Non- Living Status: Sister Family Member Ethnicity: Non- Living Status: Still Living Grandfather Family Member Ethnicity: Non- Living Status: Hx Family Cardiac Disorders: Yes (ID, CAD) Mother Adopted: No Family Member Ethnicity: Non- Living Status: Hx Family Cardiac Disorders: Yes Hx Family Respiratory Disorders: Yes Hx Family Cancer: No Hx Family GI Disorders: No Hx Family Endocrine Disorder: No Hx Family Neuromuscular Disorders: No Hx Family Neurologic Disorders: No Hx Family HEENT Disorders: No Hx Family Autoimmune Disorders: No Medications and Allergies Aspirin [Adult Aspirin Regimen] 81 mg PO DAILY 01/21/19 [History] Atorvastatin [Lipitor] 40 mg PO HS 01/21/19 [History] Buspirone HCl [Buspar] 30 mg PO BID 01/21/19 [History] FLUoxetine HCl [Fluoxetine HCl] 80 mg PO DAILY 01/21/19 [History] Metoprolol Succinate [Toprol Xl] 12.5 mg PO BID 01/21/19 [History] Pantoprazole Sodium [Protonix] 40 mg PO DAILY 01/21/19 [History] Quetiapine Fumarate [SEROquel] 300 mg PO HS 01/21/19 [History] Rizatriptan Benzoate [Maxalt Medication Tech] 10 mg PO PRN PRN 01/21/19 [History] Tizanidine HCl [Zanaflex] 2 mg PO HS 01/21/19 [History] Topiramate [Topamax] 50 mg PO BID 01/21/19 [History] Warfarin [Coumadin] 3 mg PO SUTUTHSA 01/21/19 [History] risperiDONE [Risperdal] 2 mg PO DAILY 01/21/19 [History] Fluticasone Propionate Nasal [Flonase] 1 spr NS DAILY PRN 01/25/19 [History] Gabapentin 800 mg PO TID 01/25/19 [History] Guanfacine HCl 2 mg PO HS 01/25/19 [History] Insulin ASPART [Novolog Flexpen] 2 - 8 unit SQ DAILY 01/25/19 [History] Insulin Glargine,Hum.rec.anlog [Lantus Solostar] 36 unit SQ HS 01/25/19 [History] Ipratropium/Albuterol Sulfate [Iprat-Albut 0.5-3(2.5) mg/3 ml] 3 ml IH Q4H PRN 01/25/19 [History] Meclizine HCl [Verticalm] 25 mg PO BID PRN 01/25/19 [History] Melatonin 5 mg PO HS PRN 01/25/19 [History] Nitroglycerin 0.4 mg SL Q5M PRN MDD [id number] call 911 01/25/19 [History] Propranolol [Inderal] 10 mg PO DAILY PRN 01/25/19 [History] Warfarin Sodium 4.5 mg PO MOWEFR 01/25/19 [History] hydrOXYzine HCl [Hydroxyzine HCl] 25 mg PO TID PRN 01/25/19 [History] Allergy/AdvReac Type Severity Reaction Status Date / Time baclofen Allergy Itching Verified 01/25/19 21:21 ciprofloxacin [From Cipro] Allergy Hives Verified 01/25/19 21:21 doxycycline Allergy Hives Verified 01/25/19 21:21 latex Allergy Rash Verified 01/25/19 21:21 Penicillins Allergy Hives Verified 01/25/19 21:21 prednisone Allergy Itching Verified 01/25/19 21:21 Sulfa (Sulfonamide Allergy Hives Verified 01/25/19 21:21 Antibiotics) sulfamethoxazole Allergy Hives Verified 01/25/19 21:21 [From Bactrim] trimethoprim [From Bactrim] Allergy Hives Verified 01/25/19 21:21 cefdinir AdvReac Vomiting Verified 01/25/19 21:21 All Systems: The remainder of the systems were reviewed and are negative Review of Systems: REVIEW OF SYSTEMS GENERAL: Negative for any nausea, vomiting, fevers, chills, or weight loss, fatigue NEUROLOGIC: Negative for any blurry vision, blind spots, double vision, facial asymmetry, dysphagia, hemiparesis, ataxia, seizures, paralysis, POSITIVE-dysarthria, left arm sensory deficit and motor weakness, lig htheadedness HEENT: Negative for any head trauma, neck trauma, neck stiffness, photophobia, phonophobia POSITIVE-migraine headache CARDIAC: POSITIVE-chest pain, dyspnea, palpitations MUSCULOSKELETAL: POSITIVE-loss of strength to left arm Physical Examination - Vital Signs Vital Signs: Initial Vital Signs Temp Pulse Resp BP Pulse Ox 97.8 F 115 20 120/70 95 01/25/19 21:18 01/25/19 21:18 01/25/19 21:18 01/25/19 21:18 01/25/19 21:18 - Exam Exam: Examination: General Examination: *CONSTITUTIONAL: Alert and oriented x3, no acute distress *GENERAL APPEARANCE OF PATIENT obese female who overall appears generally ill and older than stated age. *EYES: pupils equal, round, reactive to light and accommodation, conjunctiva clear without masses or ulcerations, fundi normal. *CARDIOVASCULAR RRR, S1, S2, no peripheral edema, distal temperature normal, dorsalis pedis pulses normal. See vital signs Musculoskeletal: *GAIT AND STATION normal, with normal Romberg testing, no abnormalities such as broad base gait or spasticity *ASSESSMENT OF MUSCLE STRENGTH IN THE UPPER AND LOWER EXTREMITIES right deltoid, bicep, tricep, laser engraver strength, hip flexors, dorsiflexion of the right foot 5/5, left deltoid, bicep, tricep, laser engraver strength 4/5; left arm drift present. Left hip flexor, 4/5, difficulty with dorsiflexion of left foot against resistance *MUSCLE TONE IN THE UPPER AND LOWER EXTREMITIES normal. No abnormal movements, fasciculations or atrophy identified. Neurological: *ORIENTATION to person, situation, time and place *RECURRENT AND REMOTE MEMORY intact *ATTENTION AND CONCENTRATION are normal *LANGUAGE FUNCTION no significant aphasia or dysarthia was noted. *FUND OF KNOWLEDGE aware of current events, past history, vocabulary *MENTAL attention span and concentration normal. *CN II optic fundi were normal, no papilledema noted. *CN III,IV, PERRLA extraocular eye movements were full, no nystagmus and no ptosis noted. *CN V shows normal sensation and jaw opens symmetrically. *CN VII shows normal facial movement symmetrically, upper and lower bilaterally. *CN VIII shows no significant hearing loss on exam *CN IX,,X palate elevated symmetrically *CN XI normal strength in the sternocleidomastoid muscles, symmetrical shoulder shrugging. *CN XII tongue protruded in the midline, with normal strength and movement. *SENSORY EXAMINATION light touch intact *REFLEXES: Bilateral bicep, brachial radialis, tricep DTRs 1/4 symmetrically, absent patellar reflexes S/P bilateral knee arthroscopy, absent Achilles *CEREBELLAR TESTING normal finger to nose, heel/knee/zheng with no evidence of dysmetria *PAIN LEVEL 0 Results - Laboratory Findings CBC and BMP: 01/26/19 05:28 01/26/19 05:28 Abnormal lab findings: Abnormal lab results Hgb 10.9 g/dL (11.5-15.4) L 01/26/19 05:28 Hct 33.9 % (35.3-44.9) L 01/26/19 05:28 MCH 27.0 pg (28.0-33.3) L 01/26/19 05:28 RDW 15.4 % (11.5-14.5) H 01/26/19 05:28 PT 32.0 Seconds (9.4-12.1) H 01/26/19 05:28 APTT 53.7 Seconds (26.0-36.0) H 01/25/19 22:09 Glucose 193 mg/dL (70-105) H 01/26/19 05:28 POC Glucose 180 mg/dL (70-99) H 01/26/19 07:23 Calcium 8.5 mg/dL (8.6-10.3) L 01/26/19 05:28 Total Bilirubin 0.2 mg/dL (0.3-1.0) L 01/26/19 05:28 Serum Total Protein 5.4 g/dL (6.4-8.9) L 01/26/19 05:28 Albumin 3.3 g/dL (3.5-5.7) L 01/26/19 05:28 Globulin 2.1 g/dL (2.4-3.5) L 01/26/19 05:28 - Diagnostic Findings Additional findings: Head CT 01/25/19 21:58 IMPRESSION: No acute intracranial abnormality. D/ / 01/25/2019 22:21:29 Elliott Gonsalez / hugo Interpreting Provider: Elliott Gonsalez Head CTA 01/25/19 22:35 IMPRESSION: Mild plaque both carotid bifurcation. Otherwise no hemodynamic stenosis or occlusion identified involving intracranial arterial circulation or the cervical arterial vasculature. D/ / Kristofer Emery / Kristofer Emery Interpreting Provider: Kristofer Emery Neck CTA 01/25/19 22:35 IMPRESSION: Mild plaque both carotid bifurcation. Otherwise no hemodynamic stenosis or occlusion identified involving intracranial arterial circulation or the cervical arterial vasculature. Consult Discharge Plan - Plan Referrals: Maurisio Ward MD [Primary Care Provider] -
[2019-01-26] MEDS: Aspirin Enteric Coated 81 MG Tablet PO SCH (11:24)
[2019-01-26] MEDS ORDERED: Ondansetron 4 MG/2 ML VIAL IVP PRN (13:16)
[2019-01-26] MEDS ORDERED: Fluticasone Propionate Nasal 50 MCG/SPRAY BOTTLE NS PRN (14:34)
[2019-01-26] MEDS ORDERED: Ipratropium/Albuterol Neb 3 ML IH PRN (14:34)
--- NOTE | 2019-01-26 15:02 | Event Note ---
Date of Encounter: 01/26/19 Time of Encounter: 14:59 Patient was seen and examined. Admitted by one of my colleagues overnight. Please see H&P for details. Admitted with left upper extremity weakness and numbness. The numbness resolved. She is on coumadin for h/o afib and is therapeutic. Also on ASA/statin. CT head, CTA head/neck unremarkable. TTE unremarkable. Has many risk factors. On exam, she still has weakness on left upper ext. I'd say her strength is max at 4/5. Closer to 3/5. Rest of her exam is unremarkable. Neurology saw and recommended an MRI brain but has a bladder stimulator. They have high suspicion for acute CVA and recommended a transfer to [place]. Will try to arrange for transfer.
--- NOTE | 2019-01-26 16:27 | Internal Med Progress Note ---
Hospitalist Progress Note - Encounter Date of Encounter: 01/26/19 Time of Encounter: 12:00 - Subjective Interval History: Ms. Strong is a 53-year-old female past medical history CVA, TIA, complex migraines, CAD post one stent, MD, A. fib currently on Coumadin, hypertension, diabetes, COPD, anxiety/depression, tobacco abuse. She presented to the ED last night for left arm numbness and slurred speech which in turn change in the throbbing left arm pain and left-sided chest pain. She stated that about an hour after she had chest pain she also developed a headache. She stated her headache was like her complex migraines that sometimes are associated with strokelike symptoms. NIHSS score and ER was a 1 due to slurred speech. Head CT and CTA of head and neck were done in the ER. Head CT no acute intracranial abnormalities, CTA head and neck mild plaque carotid bifurcation, hemodynamically benign. ER EKG showed sinus rhythm with left bundle branch block and no ST elevation or depression. Stroke alert was called with telemetry stroke was not an interventional candidate and advised to remain at [facility] for further workup. On exam today patient's symptoms have mostly resolved except for some weakness in her left hand. 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 She also states she is very tired and has been since yesterday. Spoke with [facility] for possible transfer due to MRI head not being able to be done at this facility due to bladder stimulator. [facility] has the same issue with MRI. Patient states that she would like to stay here tonight. CT head in morning. - Exam Vitals: Temp Pulse Resp BP Pulse Ox 98.2 F 75 14 128/64 95 01/26/19 11:07 01/26/19 11:07 01/26/19 11:07 01/26/19 11:07 01/26/19 11:07 Exam: General: AAO 3, answers questions properly, no distress Head: normocephalic, atraumatic Eyes: GARRISON, no icterus Cardio: RRR, no mumurs, rubs, or gallops Respiratory: CTAB, no wheezing, rhonchi, rales Abd: normal bowel sounds, no gaurding or rigidity Neuro: Supervisor Picking Crew strength weak in left hand, otherwise no other neurologic abnormalities Extremties: no peda edema, pulses equal bilaterally, warm Skin: warm, dry, intact - Assessment and Plan (1) Stroke-like symptoms Current Visit: Yes Status: Acute Assessment and Plan: Currently resolved except for left hand weakness Presented with left arm numbness followed by pain with slurred speech followed by headache. Stroke alert called in ER, not interventional candidate. Neurology assessed today recommended MRI head but this is contraindicated due to bladder stimulator Contacted [facility] for transfer but they have the same limitations Patient would like to stay at [facility] CT head in morning Continuous cardiac monitoring. . (2) Chest pain Current Visit: Yes Status: Acute Assessment and Plan: Currently resolved. Continuous cardiac monitoring. Serial troponins negative Echocardiogram showed left ventricular ejection fraction 55%, septal wall motion abnormalities. EKG showed sinus rhythm with bundle branch block, no ischemic changes (3) Diabetes mellitus Current Visit: Yes Status: Chronic Assessment and Plan: Accu-Cheks before meals at bedtime Sliding scale insulin (4) Headache Current Visit: Yes Status: Chronic Assessment and Plan: Currently resolved Tylenol as needed Patient states headache was typical for her atypical migraines (5) Tobacco abuse Current Visit: Yes Status: Chronic Assessment and Plan: Nicotine patch as needed Patient advised to stop smoking (6) Afib Current Visit: No Status: Chronic Assessment and Plan: Currently rate controlled with metoprolol On Coumadin Continue medications (7) DVT prophylaxis Current Visit: Yes Status: Acute Assessment and Plan: continue Coumadin DVT Prophylaxis: continue coumadin - Time Spent with Patient Total time spent is greater than 50% in coordination of care (as documented) at patient's floor/unit and/or counseling patient: Internal Medicine: Result - Labs CBC & Chem 7: 01/26/19 05:28 01/26/19 05:28 Labs: Short CBC 01/25/19 01/26/19 Range/Units 22:09 05:28 WBC 10.9 7.5 (4.3-11.1) K/mcL Hgb 11.5 10.9 L (11.5-15.4) g/dL Hct 35.7 33.9 L (35.3-44.9) % Plt Count 266 238 (140-400) K/mcL Neutrophils # 4.5 (1.6-8.9) K/mcL BMP 01/25/19 01/26/19 22:09 05:28 Sodium 137 142 Potassium 3.9 3.9 Chloride 107 105 Carbon Dioxide 23 27 BUN 7 9 Creatinine 0.84 0.97 Glucose 323 H 193 H Calcium 8.2 L 8.5 L Cardiac Enzymes 01/25/19 01/26/19 01/26/19 Range/Units 22:09 05:28 13:13 Troponin I < 0.03 < 0.03 < 0.03 (< 0.04) ng/mL Liver Function 01/26/19 Range/Units 05:28 Total Bilirubin 0.2 L (0.3-1.0) mg/dL AST 29 (13-39) Units/L ALT 39 (7-52) Units/L Alkaline Phosphatase 101 (34-104) Units/L Albumin 3.3 L (3.5-5.7) g/dL - ABG Interpretation ABG results: PT/INR, D-dimer PT 32.0 Seconds (9.4-12.1) H 01/26/19 05:28 - Impressions Impressions Head CT 01/25/19 21:58 IMPRESSION: No acute intracranial abnormality. Critical results were called by Dr. Elliott Gonsalez to Dr. Barbi Sofia on 01/25/2019 at 22:23. D/ / 01/25/2019 22:21:29 Elliott Gonsalez / hugo Interpreting Provider: Elliott Gonsalez Head CTA 01/25/19 22:35 IMPRESSION: Mild plaque both carotid bifurcation. Otherwise no hemodynamic stenosis or occlusion identified involving intracranial arterial circulation or the cervical arterial vasculature. D/ / Kristofer Emery / Kristofer Emery Interpreting Provider: Kristofer Emery Neck CTA 01/25/19 22:35 IMPRESSION: Mild plaque both carotid bifurcation. Otherwise no hemodynamic stenosis or occlusion identified involving intracranial arterial circulation or the cervical arterial vasculature. D/ / Kristofer Emery / Kristofer Emery Interpreting Provider: Kristofer Emery Echocardiogram 04/19/19 04:06 Impressions: LVEF 55%. Atypical septal motion due to BBB. Mild concentric left ventricular hypertrophy. Moderate left ventricular diastolic dysfunction. Normal right ventricular structure and function. Mild tricuspid regurgitation. No pulmonary hypertension. Left Ventricular Wall Motion: Rest Echo Findings The mid anterior septal, mid inferior lateral, basal anterior septal and basal inferior lateral singh were not visualized. All other wall segments showed normal motion. Findings: Study Quality * Technically sub-optimal due to body habitus. ECG Findings * Normal sinus rhythm. Left Ventricle * LVEF 55%. * Mild concentric left ventricular hypertrophy. * Moderate left ventricular diastolic dysfunction. Right Ventricle * Normal right ventricular structure and function. Left Atrium * Normal left atrial size. Right Atrium * Normal right atrial size. Aortic Valve * No aortic regurgitation. * Aortic valve not well visualized. * No aortic stenosis. Mitral Valve * Normal mitral valve structure. * No mitral stenosis. * Mild mitral regurgitation. Tricuspid Valve * Tricuspid valve not well visualized. * Mild tricuspid regurgitation. Pulmonic Valve * Pulmonic valve is not well visualized. * No pulmonic stenosis. * No pulmonic regurgitation. Pulmonary Artery * Pulmonary artery not well visualized. Aorta * Normally sized aortic root. Pericardium * There is no pericardial effusion present. Interatrial Septum * Lipomatous interatrial septum. * No evidence of PFO by color Doppler. IVC * The IVC is not well evaluated. Consult Discharge Plan - Plan Referrals: Maurisio Ward MD [Primary Care Provider] - (2) Chest pain Qualifiers: Chest pain type: unspecified Qualified Code(s): R07.9 - Chest pain, unspecified (3) Diabetes mellitus Qualifiers: Diabetes mellitus type: type 2 Qualified Code(s): E11.9 - Type 2 diabetes mellitus without complications (4) Headache Qualifiers: Headache type: unspecified Headache chronicity pattern: acute headache Intractability: not intractable Qualified Code(s): R51 - Headache (6) Afib Qualifiers: Atrial fibrillation type: paroxysmal Qualified Code(s): I48.0 - Paroxysmal atrial fibrillation
[2019-01-26] MEDS: Gabapentin 400 MG CAPSULE PO SCH ×2 (16:41→21:27)
[2019-01-26] MEDS ORDERED: Warfarin perPT PO PRN (18:00)
[2019-01-26] MEDS ORDERED: *HR* Warfarin 3 MG TABLET PO ONE (18:00)
[2019-01-26] MEDS ORDERED: Insulin LISPRO 300 UNITS/3 ML VIAL SQ SCH (21:00)
[2019-01-26] MEDS: BUSPIRONE HCL 10 MG TABLET PO SCH (21:27)
[2019-01-26] MEDS: Metoprolol XL (24 HR) Succ 25 MG TAB.ER.24H PO SCH (21:28)
[2019-01-27 03:13] LABS: Hematocrit 37.7 % (35.3-44.9); Hemoglobin 12.1 g/dL (11.5-15.4); Immature Platelets 3.6 % (1.1-6.1); Mean Corpuscular HGB Conc 32.1 g/dL (31.6-35.5); Mean Corpuscular Volume 84.2 fL (83.0-100.0); Mean Platelet Volume 10.2 fL (9.4-12.4); Red Blood Count 4.48 M/mcL (3.82-4.97); Red Cell Distribution Width 15.2 % (11.5-14.5)
[2019-01-27 03:25] LABS: INR 2.7
[2019-01-27 03:31] LABS: BUN/Creatinine Ratio 15 (6-26); Blood Urea Nitrogen 11 mg/dL (6-20); Calcium 8.7 mg/dL (8.6-10.3); Carbon Dioxide 28 mEq/L (23-29); Chloride 104 mEq/L (98-107); Glucose 168 mg/dL (70-105); Osmolality,Calculated 293 (280-300); Potassium 4.3 mEq/L (3.5-5.1); Sodium 140 mEq/L (136-145); eGFR For Non-African Americans > 60 (> 60)
[2019-01-27 07:37] VITALS: BP 118/67
[2019-01-27] MEDS: Aspirin Enteric Coated 81 MG Tablet PO SCH (07:54)
[2019-01-27] MEDS: Metoprolol XL (24 HR) Succ 25 MG TAB.ER.24H PO SCH (07:54)
[2019-01-27] MEDS: BUSPIRONE HCL 10 MG TABLET PO SCH (07:54)
[2019-01-27] MEDS: Gabapentin 400 MG CAPSULE PO SCH (07:55)
[2019-01-27] MEDS: Insulin LISPRO 300 UNITS/3 ML VIAL SQ SCH (07:57)
[2019-01-27] MEDS ORDERED: FLUoxetine 20 MG CAPSULE PO SCH (09:00)
[2019-01-27] MEDS ORDERED: risperiDONE 1 MG TABLET PO SCH (09:00)
--- NOTE | 2019-01-27 09:59 | Neurology Progress Note ---
Date of Encounter: 01/27/19 Time of Encounter: 09:56 Assessment and Plan (1) Left arm numbness Current Visit: Yes Status: Acute Likely not related to a new stroke. Repeat CT of head showed no acute intracranial abnormality. Patient's neurological status resolved to her baseline. Patient currently on aspirin and Coumadin with therapeutic INR. (2) Left arm pain Current Visit: Yes Status: Acute As mentioned above, the left arm pain and weakness likely not related to a new stroke that he could be the result of completed migraine phenomenon. Patient is advised to follow-up with her primary neurologist Dr. Darrell Galvez within one or 2 weeks to discuss treatment of her complicated migraine. Patient also has history of obstructive sleep apnea but she has not been compliant with CPAP therapy. Patient is advised to follow-up with separator operator to get a sleep study. (3) Stroke-like symptoms Current Visit: Yes Status: Acute This is unlikely related to a new stroke since the patient is already on aspirin and Coumadin with therapeutic INR. Symptoms resolved without intervention and the weakness is only involving the left arm and spare the face and the left leg. Would recommend no further testing and to not believe that she needs an MRI of the brain at this moment. Okay to discharge home from a neurology perspective. (4) Headache Current Visit: Yes Status: Acute Qualifiers: Headache type: unspecified Headache chronicity pattern: unspecified pattern Intractability: not intractable Qualified Code(s): R51 - Headache Subjective Principal diagnosis: left arm weakness, migraine Interval history: Patient seen and examined. She is doing better this morning after waking up and her left arm weakness essentially resolved. Headaches are do better too. Repeat CT of head also completed and it was read no acute intracranial abnormality. She states that she think that the arm left weakness was related to her migraines. She also reports a sore spot at the right base of the skull. She follows Dr. Darrell Galvez for her neurological conditions. She was given Rizatriptan for her migraines. Has history of SNEHA but has not been compliant with CPAP therapy Objective - Constitutional Vitals: Temp Pulse Resp BP Pulse Ox 97.6 F 66 16 118/67 98 01/27/19 07:36 01/27/19 07:36 01/27/19 07:36 01/27/19 07:36 01/27/19 07:36 - Neurological Exam Sensorimotor examination: Present: intact Motor examination - right side: 5/5: deltoids, biceps, triceps, wrist flexion, wrist extension, kitchen steward, hip flexors, tibialis Anterior, quadriceps, toe extension (EHL), plantarflexion Motor examination - left side: 5/5: deltoids, biceps, triceps, wrist flexion, wrist extension, hip flexors, kitchen steward, quadriceps, tibialis Anterior, toe extension (EHL), plantarflexion Sensation intact: Present: intact Posture: Present: other (None) Reflex and gait examination: intact Reflexes: Biceps: 2+, Triceps: 2+, Brachioradialis: 2+, Patella: 2+, Achilles: 2+ Mental Status Examination: Present: awake, alert, oriented to person, oriented to place, oriented to time, follows commands appropriately, answers questions appropriately, no agnosia, no aphasia, no aproxia, lucid Cranial nerve examination: Present: PERRL, EOMI, visual you intact, corneal reflexes brisk symmetrically, sensory to face intact, mastication intact, no facial asymmetry is present, no dysarthria, hearing is intact symmetrically, soft palate elevates bilaterally upon phonation, gag reflex intact, flexes SCM and trapezius muscles symmetrically with full power, tongue protrudes midline, no atrophy or facial fasiculations present, taste anterior 2/3 tongue diminished Results - Laboratory Findings CBC and BMP: 01/27/19 02:40 01/27/19 02:40 Abnormal lab findings: Abnormal lab results MCH 27.0 pg (28.0-33.3) L 01/27/19 02:40 RDW 15.2 % (11.5-14.5) H 01/27/19 02:40 PT 30.0 Seconds (9.4-12.1) H 01/27/19 02:40 APTT 53.7 Seconds (26.0-36.0) H 01/25/19 22:09 Glucose 168 mg/dL (70-105) H 01/27/19 02:40 POC Glucose 202 mg/dL (70-99) H 01/26/19 20:26 Total Bilirubin 0.2 mg/dL (0.3-1.0) L 01/26/19 05:28 Serum Total Protein 5.4 g/dL (6.4-8.9) L 01/26/19 05:28 Albumin 3.3 g/dL (3.5-5.7) L 01/26/19 05:28 Globulin 2.1 g/dL (2.4-3.5) L 01/26/19 05:28 - Diagnostic Findings Additional findings: EXAMINATION: CT OF THE HEAD WITHOUT CONTRAST 01/27/2019 8:48 am TECHNIQUE: CT of the head was performed without the administration of intravenous contrast. Dose modulation, iterative reconstruction, and/or weight based adjustment of the mA/kV was utilized to reduce the radiation dose to as low as reasonably achievable. COMPARISON: None. HISTORY: ORDERING SYSTEM PROVIDED HISTORY: possible CVA Initial encounter. Left arm weakness with numbness and pain. FINDINGS: BRAIN/VENTRICLES: There is no acute intracranial hemorrhage, mass effect or midline shift. No abnormal extra-axial fluid collection. The taylor-white differentiation is maintained without evidence of an acute infarct. There is no evidence of hydrocephalus. ORBITS: The visualized portion of the orbits demonstrate no acute abnormality. SINUSES: The visualized paranasal sinuses and mastoid air cells demonstrate no acute abnormality. SOFT TISSUES/SKULL: No acute abnormality of the visualized skull or soft tissues. CT/CT head/brain wo con IMPRESSION: No acute intracranial abnormality. D/ / Arcadio Randall MD / Arcadio Randall MD Interpreting Provider: Arcadio Randall MD /EV echocardiogram Impressions: LVEF 55%. Atypical septal motion due to BBB. Mild concentric left ventricular hypertrophy. Moderate left ventricular diastolic dysfunction. Normal right ventricular structure and function. Mild tricuspid regurgitation. No pulmonary hypertension. Left Ventricular Wall Motion: Rest Echo Findings The mid anterior septal, mid inferior lateral, basal anterior septal and basal inferior lateral singh were not visualized. All other wall segments showed normal motion. Findings: Study Quality * Technically sub-optimal due to body habitus. ECG Findings * Normal sinus rhythm. Left Ventricle * LVEF 55%. * Mild concentric left ventricular hypertrophy. * Moderate left ventricular diastolic dysfunction. Right Ventricle * Normal right ventricular structure and function. Left Atrium * Normal left atrial size. Right Atrium * Normal right atrial size. Aortic Valve * No aortic regurgitation. * Aortic valve not well visualized. * No aortic stenosis. Mitral Valve * Normal mitral valve structure. * No mitral stenosis. * Mild mitral regurgitation. Tricuspid Valve * Tricuspid valve not well visualized. * Mild tricuspid regurgitation. Pulmonic Valve * Pulmonic valve is not well visualized. * No pulmonic stenosis. * No pulmonic regurgitation. Pulmonary Artery * Pulmonary artery not well visualized. Aorta * Normally sized aortic root. Pericardium * There is no pericardial effusion present. Interatrial Septum * Lipomatous interatrial septum. * No evidence of PFO by color Doppler. IVC * The IVC is not well evaluated. CTA OF THE HEAD WITHOUT AND WITH CONTRAST; CTA OF THE NECK 01/25/2019 11:18 pm: TECHNIQUE: CTA of the head/brain was performed without and with the administration of intravenous contrast. Multiplanar reformatted images are provided for review. MIP images are provided for review. Dose modulation, iterative reconstruction, and/or weight based adjustment of the mA/kV was utilized to reduce the radiation dose to as low as reasonably achievable.; CTA of the neck was performed with the administration of intravenous contrast. Multiplanar reformatted images are provided for review. MIP images are provided for review. Stenosis of the internal carotid arteries measured using NASCET criteria. Dose modulation, iterative reconstruction, and/or weight based adjustment of the mA/kV was utilized to reduce the radiation dose to as low as reasonably achievable. COMPARISON: CT head 01/25/2019 CT angiogram 06/04/2018 HISTORY: ORDERING SYSTEM PROVIDED HISTORY: slurred speech FINDINGS: CTA NECK: AORTIC ARCH/ARCH VESSELS: There is a normal branch pattern of the aortic arch. No significant stenosis is seen of the innominate artery or subclavian arteries. CAROTID ARTERIES: The common carotid arteries are normal in appearance without evidence of a flow limiting stenosis. Mild plaque both carotid bifurcations. Otherwise, the internal carotid arteries are normal in appearance without evidence of a flow limiting stenosis by NASCET criteria. No dissection or arterial injury is seen. VERTEBRAL ARTERIES: The vertebral arteries both arise from the subclavian arteries and are normal in caliber without evidence of flow limiting stenosis or dissection. SOFT TISSUES: The lung apices are clear. No cervical or superior mediastinal lymphadenopathy. The visualized portion of the larynx and pharynx appear unremarkable. The parotid, submandibular and thyroid glands demonstrate no acute abnormality. Thyroid nodules measure up to 1.0 cm in size, similar to prior examination. No follow-up or workup necessary. BONES: The visualized osseous structures appear unremarkable. CTA HEAD: ANTERIOR CIRCULATION: The internal carotid arteries are normal in course and caliber without focal stenosis. The anterior cerebral and middle cerebral arteries demonstrate no focal stenosis. POSTERIOR CIRCULATION: The posterior cerebral arteries demonstrate no focal stenosis. The vertebral and basilar arteries appear unremarkable. BRAIN: No mass effect or midline shift. No abnormal extra-axial fluid collection. The taylor-white differentiation appears grossly maintained. CT/CT angio head IMPRESSION: Mild plaque both carotid bifurcation. Otherwise no hemodynamic stenosis or occlusion identified involving intracranial arterial circulation or the cervical arterial vasculature. D/ / Kristofer Emery / Kristofer Emery Interpreting Provider: Kristofer Emery Consult Discharge Plan - Plan Referrals: Maurisio Ward MD [Primary Care Provider] -
--- NOTE | 2019-01-27 10:36 | Discharge Summary ---
Orders not resulted at time of discharge: Pending orders 01/28/19 04:00 Prothrombin Time INR [COAG] AM 0400 01/29/19 04:00 Prothrombin Time INR [COAG] AM 0400 Date of Encounter: 01/27/19 Time of Encounter: 10:35 - Discharge Diagnosis (1) Stroke-like symptoms Priority: Primary Status: Acute (2) Chest pain Priority: Primary Status: Acute Qualifiers: Chest pain type: unspecified Qualified Code(s): R07.9 - Chest pain, unspecified (3) Tobacco abuse Priority: Secondary Status: Chronic (4) Headache Priority: Secondary Status: Acute Qualifiers: Headache type: unspecified Headache chronicity pattern: unspecified pattern Intractability: not intractable Qualified Code(s): R51 - Headache (5) Diabetes mellitus Priority: Secondary Status: Chronic Qualifiers: Diabetes mellitus type: type 2 Qualified Code(s): E11.9 - Type 2 diabetes mellitus without complications Hospital course: Ms. Strong is a 53 year old female with past medical history significant for CVA, TIA, complex migraines, CAD with stents x1, DE, afib on Coumadin, hypertension, diabetes, COPD, anxiety, depression, and tobacco abuse who presented for complaints of left arm numbness and slurred speech followed by throbbing left arm and left sided chest pain last night. Around an hour after symptom onset she also developed a headache. Has history of complex migraines which sometimes present with stroke like symptoms prior to onset. NIHSS score in ER was 1 for slurred speech. ER performed head CT, and CTA of head and neck and called stroke alert with tele stroke and was not an interventional candidate and was advised to remain at [facility] for further workup. All imaging studies were unremarkable. CTA of head and neck showed mild plaque both carotid bifurcation, otherwise no hemodynamic stenosis or occlusion identified involving intracranial arterial circulation or the cervical arterial vasculature. ER contacted on- call [place] neurology Dr. Danielle who agreed to see patient in consult. ER reported EKG as sinus rhythm with left bundle branch block and no ST elevation or depression. Symptoms began to resolve while in ER. When I saw the patient in the morning, she still had left upper extremity weakness but she said it was better than initially. She was recommended an MRI but could not get done as she has a bladder stimulator. She had repeat CT head the following morning with nothing acute and symptoms completely resolved. Neurology do not think this is a CVA. It is possibly complex migraine. They were ok with discharge. She had and echo which was unremarkable. Was therapeutic on Coumadin. Was on Aspirin and statin and recommended to continue. - Time Spent with Patient Total time spent providing and/or coordinating discharge services: Time spent: Greater than 30 minutes - Discharge Medications Prescriptions: Continue Fluticasone Propionate Nasal [Flonase] 1 spr NS DAILY PRN PRN Reason: Allergy Symptoms Gabapentin 800 mg PO TID hydrOXYzine HCl [Hydroxyzine HCl] 25 mg PO TID PRN PRN Reason: Anxiety Insulin ASPART [Novolog Flexpen] 2 - 8 unit SQ DAILY Insulin Glargine,Hum.rec.anlog [Lantus Solostar] 36 unit SQ HS Ipratropium/Albuterol Sulfate [Iprat-Albut 0.5-3(2.5) mg/3 ml] 3 ml IH Q4H PRN PRN Reason: Shortness Of Breath Meclizine HCl [Verticalm] 25 mg PO BID PRN PRN Reason: Vertigo Melatonin 5 mg PO HS PRN PRN Reason: Sleep Nitroglycerin 0.4 mg SL Q5M PRN MDD [id number] call 911 PRN Reason: Chest Pain Propranolol [Inderal] 10 mg PO DAILY PRN PRN Reason: Anxiety Warfarin Sodium 4.5 mg PO MOWEFR Guanfacine HCl 2 mg PO HS Ibuprofen 800 mg PO PRN PRN PRN Reason: Headache Aspirin [Adult Aspirin Regimen] 81 mg PO DAILY Warfarin [Coumadin] 3 mg PO SUTUTHSA Rizatriptan Benzoate [Maxalt Assistant Plant Controller] 10 mg PO PRN PRN PRN Reason: Headache Buspirone HCl [Buspar] 30 mg PO BID Tizanidine HCl [Zanaflex] 2 mg PO HS FLUoxetine HCl [Fluoxetine HCl] 80 mg PO DAILY Atorvastatin [Lipitor] 40 mg PO HS Metoprolol Succinate [Toprol Xl] 12.5 mg PO BID Quetiapine Fumarate [Seroquel] 300 mg PO HS Pantoprazole Sodium [Protonix] 40 mg PO DAILY Topiramate [Topamax] 50 mg PO BID risperiDONE [Risperdal] 2 mg PO DAILY Home Medications: Aspirin [Adult Aspirin Regimen] 81 mg PO DAILY 01/21/19 [History] Atorvastatin [Lipitor] 40 mg PO HS 01/21/19 [History] Buspirone HCl [Buspar] 30 mg PO BID 01/21/19 [History] FLUoxetine HCl [Fluoxetine HCl] 80 mg PO DAILY 01/21/19 [History] Metoprolol Succinate [Toprol Xl] 12.5 mg PO BID 01/21/19 [History] Pantoprazole Sodium [Protonix] 40 mg PO DAILY 01/21/19 [History] Quetiapine Fumarate [Seroquel] 300 mg PO HS 01/21/19 [History] Rizatriptan Benzoate [Maxalt Assistant [employer] Controller] 10 mg PO PRN PRN 01/21/19 [History] Tizanidine HCl [Zanaflex] 2 mg PO HS 01/21/19 [History] Topiramate [Topamax] 50 mg PO BID 01/21/19 [History] Warfarin [Coumadin] 3 mg PO SUTUTHSA 01/21/19 [History] risperiDONE [Risperdal] 2 mg PO DAILY 01/21/19 [History] Fluticasone Propionate Nasal [Flonase] 1 spr NS DAILY PRN 01/25/19 [History] Gabapentin 800 mg PO TID 01/25/19 [History] Guanfacine HCl 2 mg PO HS 01/25/19 [History] Insulin ASPART [Novolog Flexpen] 2 - 8 unit SQ DAILY 01/25/19 [History] Insulin Glargine,Hum.rec.anlog [Lantus Solostar] 36 unit SQ HS 01/25/19 [History] Ipratropium/Albuterol Sulfate [Iprat-Albut 0.5-3(2.5) mg/3 ml] 3 ml IH Q4H PRN 01/25/19 [History] Meclizine HCl [Verticalm] 25 mg PO BID PRN 01/25/19 [History] Melatonin 5 mg PO HS PRN 01/25/19 [History] Nitroglycerin 0.4 mg SL Q5M PRN MDD [id number] call 911 01/25/19 [History] Propranolol [Inderal] 10 mg PO DAILY PRN 01/25/19 [History] Warfarin Sodium 4.5 mg PO MOWEFR 01/25/19 [History] hydrOXYzine HCl [Hydroxyzine HCl] 25 mg PO TID PRN 01/25/19 [History] Ibuprofen 800 mg PO PRN PRN 01/26/19 [History] Allergies/Adverse Reactions: Allergy/AdvReac Type Severity Reaction Status Date / Time baclofen Allergy Itching Verified 01/25/19 21:21 ciprofloxacin [From Cipro] Allergy Hives Verified 01/25/19 21:21 doxycycline Allergy Hives Verified 01/25/19 21:21 latex Allergy Rash Verified 01/25/19 21:21 Penicillins Allergy Hives Verified 01/25/19 21:21 prednisone Allergy Itching Verified 01/25/19 21:21 Sulfa (Sulfonamide Allergy Hives Verified 01/25/19 21:21 Antibiotics) sulfamethoxazole Allergy Hives Verified 01/25/19 21:21 [From Bactrim] trimethoprim [From Bactrim] Allergy Hives Verified 01/25/19 21:21 cefdinir AdvReac Vomiting Verified 01/25/19 21:21 Date of admission: 01/26/19 01:02 Primary care physician: Maurisio Ward MD Consults: 01/26/19 01:05 Consult to Neurology [CONS] Routine Consulting Provider: Neurology [facility] Reason for Consult: Left sided numbness and pain, slurred speech. H/o CVA and TIA, complex migraines Call Completed: Yes 01/26/19 14:41 Consult to Occupational Therapy [CONS] Routine Comment: Evaluate, develop and implement POC Reason for Consult: therapy/placement needs Does patient have active BEDREST order?: No Is patient medically & hemodynamically stable?: Yes Consult to Physical Therapy [CONS] Routine Comment: Evaluate, develop and implement POC Reason for Consult: PT eval Does patient have active BEDREST order?: No Is patient medically & hemodynamically stable?: Yes - Constitutional Vitals: Temp Pulse Resp BP Pulse Ox 97.6 F 66 16 118/67 98 01/27/19 07:36 01/27/19 07:36 01/27/19 07:36 01/27/19 07:36 01/27/19 07:36 Exam: GEN: NAD CVS: RRR. S1, S2, No m/r/g RESP: CTAB ABD: Soft, NT, ND, +BS EXT: No edema. 2+ DP. No rashes NEURO: Nonfocal - Patient Status Disposition: Home, Self-Care Condition: Fair Overall status at discharge: patient is progressing back to baseline - Discharge Instructions Instructions: Chest Pain (DC), How to Stop Smoking (DC) Follow Up With: Maurisio Ward MD [Primary Care Provider] - (Your appointment has been requested) - Diet and Activity Activity: increase activity as tolerated Diet: diabetic diet, low salt diet
== END 2019-01-27 11:05 | disposition home or self-care (01) ==
LOC: EMEROOARM 21:14 → 2SOUTHHOLD 21:14 → SUATTDRO 01-26 01:02 → 2SOUTHHOLD 01-26 01:29 → 3BNU 01-26 14:18
PROVIDERS: ADMIT Family Medicine; ATTEND Internal Medicine

== ENCOUNTER 2019-03-16 21:17 | Observation (INO) ==
[2019-03-16 23:02] LABS: Basophils % 0.4 %; Eosinophils # 0.1 K/mcL (0.0-0.6); Eosinophils % 0.7 %; Hematocrit 37.2 % (35.3-44.9); Hemoglobin 12.1 g/dL (11.5-15.4); Lymphocytes # 1.7 K/mcL (0.6-4.6); Lymphocytes % 15.1 %; Mean Corpuscular HGB Conc 32.5 g/dL (31.6-35.5); Mean Corpuscular Hemoglobin 27.7 pg (28.0-33.3); Mean Corpuscular Volume 85.1 fL (83.0-100.0); Mean Platelet Volume 10.4 fL (9.4-12.4); Monocytes # 0.8 K/mcL (0.0-1.3); Monocytes % 6.7 %; Neutrophils # 8.7 K/mcL (1.6-8.9); Platelet Count 223 K/mcL (140-400); Red Blood Count 4.37 M/mcL (3.82-4.97); Segmented Neutrophils % 76.1 %; White Blood Count 11.4 K/mcL (4.3-11.1)
[2019-03-16 23:24] LABS: BUN/Creatinine Ratio 9 (6-26); Blood Urea Nitrogen 6 mg/dL (6-20); Calcium 8.1 mg/dL (8.6-10.3); Carbon Dioxide 24 mEq/L (23-29); Chloride 104 mEq/L (98-107); Glucose 217 mg/dL (70-105); Osmolality,Calculated 288 (280-300); Potassium 3.3 mEq/L (3.5-5.1); Sodium 137 mEq/L (136-145); Troponin I < 0.03 ng/mL (< 0.04); eGFR For African Americans > 60 (> 60); eGFR For Non-African Americans > 60 (> 60)
--- NOTE | 2019-03-17 01:22 | Emergency Department Note ---
Disposition Clinical Impression: Chest pain, rule out acute myocardial infarction Acute cystitis Qualifiers: Hematuria presence: without hematuria Qualified Code(s): N30.00 - Acute cystitis without hematuria Disposition: Admitted As Inpatient Condition: Good Time of Disposition: 02:56 General Adult HPI - General Chief complaint: ED Chest Pain Stated complaint: chest,arms,neck pain/lightheaded/urinary incont. Time Seen by Provider: 03/17/19 00:16 Source: patient Mode of arrival: ambulatory Limitations: no limitations Nursing Notes Reviewed: Yes Vital Signs Reviewed: Yes - History of Present Illness HPI Narrative: Alert and oriented nontoxic-appearing 53-year-old female with history of atrial fibrillation (anticoagulated on Coumadin) hyperlipidemia hypertension, COPD, and CHF presents for evaluation of 2-3 days worth of progressively worsening generalized myalgias, subjective chills, decreased urinary frequency, substernal and left-sided chest pressure, neck pain (nontraumatic), 5 pound weight gain over 3 days, orthopnea. She denies any abdominal pain, nausea, vomiting. Chest pain and shortness of breath are worsened with exertion. She complains of cough productive of a whitish colored sputum. She denies any hemoptysis but does complain of pain with inspiration. She complains of worsening peripheral edema. She states that she had been taken off Lasix sometime ago because "it May be d ehydrated". She states that she is not on any other diuretic at this point. Onset (ago): day(s) Location: neck, other (Generalized myalgias, neck) Pain Severity: moderate Pain Scale: 7 Quality: aching Consistency: constant Improves with: nothing Worsens with: other (Exertion) Associated symptoms: Reports: chest pain, cough, fever/chills (Chills but no recorded fever), malaise, shortness of breath, other (Weight gain, peripheral edema). Denies: nausea/vomiting Treatments Prior to Arrival: none - Related Data Home Medications Medication Instructions Recorded Confirmed Aspirin [Adult Aspirin Regimen] 81 mg PO DAILY 01/21/19 02/08/19 Atorvastatin [Lipitor] 40 mg PO HS 01/21/19 03/17/19 Buspirone HCl [Buspar] 30 mg PO BID 01/21/19 03/17/19 FLUoxetine HCl [Fluoxetine HCl] 80 mg PO DAILY 01/21/19 03/17/19 Metoprolol Succinate [Toprol Xl] 12.5 mg PO BID 01/21/19 03/17/19 Pantoprazole Sodium [Protonix] 40 mg PO DAILY 01/21/19 03/17/19 Quetiapine Fumarate [Seroquel] 300 mg PO HS 01/21/19 03/17/19 Rizatriptan Benzoate [Maxalt Training Professional] 10 mg PO PRN PRN 01/21/19 03/17/19 Tizanidine HCl [Zanaflex] 2 mg PO HS 01/21/19 03/17/19 Topiramate [Topamax] 50 mg PO BID 01/21/19 03/17/19 Warfarin [Coumadin] 3 mg PO SUTUTHSA 01/21/19 03/17/19 risperiDONE [Risperdal] 2 mg PO HS 01/21/19 03/17/19 Fluticasone Propionate Nasal 1 spr NS DAILY PRN 01/25/19 03/17/19 [Flonase] Gabapentin 800 mg PO TID 01/25/19 03/17/19 Guanfacine HCl 1 mg PO HS 01/25/19 03/17/19 Insulin ASPART [Novolog Flexpen] 3 - 4 unit SQ DAILY 01/25/19 03/17/19 Insulin Glargine,Hum.rec.anlog 30 unit SQ HS 01/25/19 03/17/19 [Lantus Solostar] Ipratropium/Albuterol Sulfate 3 ml IH Q4H PRN 01/25/19 03/17/19 [Iprat-Albut 0.5-3(2.5) mg/3 ml] Meclizine HCl [Verticalm] 25 mg PO BID PRN 01/25/19 03/17/19 Melatonin 5 mg PO HS PRN 01/25/19 03/17/19 Nitroglycerin 0.4 mg SL Q5M PRN MDD [id number] call 01/25/19 03/17/19 911 Propranolol [Inderal] 10 mg PO DAILY PRN 01/25/19 03/17/19 Warfarin Sodium 4 mg PO MOWEFR 01/25/19 03/17/19 hydrOXYzine HCl [Hydroxyzine HCl] 50 mg PO TID 01/25/19 03/17/19 Budesonide/Formoterol 160/4.5 2 puff IH BIDR 02/08/19 03/17/19 [Symbicort 160/4.5] Levalbuterol [Xopenex INH] 2 puff IH Q6H 02/08/19 03/17/19 Ondansetron HCl [Zofran] 4 mg PO Q8HR PRN 02/08/19 03/17/19 OxyCODONE/APAP 5/325 [Percocet 1 each PO Q8HR PRN 02/08/19 03/17/19 5/325 MG] Allergies Allergy/AdvReac Type Severity Reaction Status Date / Time baclofen Allergy Itching Verified 03/17/19 02:51 ciprofloxacin [From Cipro] Allergy Hives Verified 03/17/19 02:51 doxycycline Allergy Hives Verified 03/17/19 02:51 latex Allergy Rash Verified 03/17/19 02:51 Penicillins Allergy Hives Verified 03/17/19 02:51 prednisone Allergy Itching Verified 03/17/19 02:51 Sulfa (Sulfonamide Allergy Hives Verified 03/17/19 02:51 Antibiotics) sulfamethoxazole Allergy Hives Verified 03/17/19 02:51 [From Bactrim] trimethoprim [From Bactrim] Allergy Hives Verified 03/17/19 02:51 cefdinir AdvReac Vomiting Verified 03/17/19 02:51 All systems ED: reviewed and negative except as stated. Review of Systems: As Per HPI Constitutional: Denies: fever, chills, weakness, weight change Eyes: Denies: eye pain, eye discharge, vision change ENT ED: Denies: ear pain, throat pain, dental pain, hearing loss, epistaxis, congestion, dysphagia Cardiovascular: Reports: as per HPI, chest pain, dyspnea on exertion, orthopnea, edema. Denies: palpitations, syncope Respiratory: Reports: as per HPI, cough, sputum production. Denies: dyspnea, wheezes, hemoptysis, stridor Gastrointestinal: Denies: abdominal pain, nausea, vomiting, diarrhea, co nstipation, hematemesis, melena, hematochezia Genitourinary: Reports: as per HPI, other (Decreased urinary frequency). Denies: dysuria, frequency, hematuria, discharge Musculoskeletal: Reports: as per HPI, neck pain, myalgia (Generalized). Denies: back pain, arthralgia Integumentary: Denies: rash, abrasion, lesions Neurological: Denies: headache, weakness, numbness, paresthesias, confusion, abnormal gait, vertigo Psychiatric: Denies: anxiety, depression, suicidal thoughts, homicidal thoughts, auditory hallucinations, visual hallucinations Endocrine: Denies: fatigue Hematological/Lymphatic: Denies: easy bleeding, easy bruising Allergic/Immunologic: Denies: facial swelling, urticaria Past Medical History - Past Medical History Attestation: Yes The following information was validated with the patient. 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 Absent: conjunctival injection - ENT ENT exam: mucous membranes moist - Neck Neck exam: Present: normal inspection, full ROM - Chest Chest inspection: Present: normal inspection, symmetric chest wall rise - Respiratory Respiratory exam: Present: normal lung sounds bilaterally. Absent: respiratory distress, wheezes, stridor, accessory muscle use, prolonged expiratory phase - Cardiovascular Cardiovascular exam: Present: regular rate, normal rhythm, normal heart sounds - Abdominal Exam Abdominal exam: Present: soft, Non-Tender, normal bowel sounds. Absent: distention, guarding, rebound, rigidity - Extremities Exam Extremities exam: Present: full ROM, pedal edema (1-2+ pretibial edema noted bilaterally) - Neurological Exam Neurological exam: Present: alert, oriented X3, normal gait - Psychiatric Psychiatric exam: Present: normal affect, normal mood - Skin Skin exam: Present: warm, dry, intact, normal color. Absent: rash, cyanosis, diaphoresis, pallor, mottled Course Vital Signs Temperature 98.3 F 03/16/19 21:20 Pulse Rate 106 03/16/19 21:20 Respiratory Rate 18 03/16/19 21:20 Blood Pressure 146/92 03/16/19 21:20 O2 Sat by Pulse Oximetry 95 03/16/19 21:20 Temperature 98.3 F 03/17/19 00:47 Pulse Rate 100 03/17/19 02:52 Respiratory Rate 16 03/17/19 02:52 Blood Pressure 146/79 03/17/19 02:52 O2 Sat by Pulse Oximetry 95 03/17/19 02:52 Oxygen Delivery Oxygen Delivery Room Air Medical Decision Making - MDM Narrative Medical decision making narrative: The patient stated improvement in the chest pain after a single sublingual nitroglycerin tablet. She rated her pain a 6 out of 10 and improved from an 8 out of 10 prior. She did not declined any additional nitroglycerin tablets. EKG showed a sinus tachycardia with left bundle branch block unchanged from prior. Troponin normal. Chest x-ray shows no acute cardiopulmonary abnormality. BNP slightly elevated at 120. She does have a small white blood cell elevation at 11.4 as well as an apparent urinary tract infection., Admitting hospitalist. He is accepted the patient for admission for chest pain rule out and management of the urinary tract infection. I have discussed this patient's case with Dr. Longo as well. Dr. Longo has had a [id number] evaluation with patient and agrees with this plan. I spoke with Dr. Sesay - Medical Records Medical records reviewed: Yes I reviewed the patient's medical records. - Lab Data Lab results reviewed: Yes I reviewed the patient's lab results. Lab results narrative: Lab Results 03/16/19 03/16/19 03/17/19 Range/Units 22:37 22:37 00:28 WBC 11.4 H (4.3-11.1) K/mcL RBC 4.37 (3.82-4.97) M/mcL Hgb 12.1 (11.5-15.4) g/dL Hct 37.2 (35.3-44.9) % MCV 85.1 (83.0-100.0) fL MCH 27.7 L (28.0-33.3) pg MCHC 32.5 (31.6-35.5) g/dL RDW 14.0 (11.5-14.5) % Plt Count 223 (140-400) K/mcL MPV 10.4 (9.4-12.4) fL Immature Gran % 1.0 (0-4) % Seg Neutrophils % 76.1 % Lymphocytes % 15.1 % Monocytes % 6.7 % Eosinophils % 0.7 % Basophils % 0.4 % Neutrophils # 8.7 (1.6-8.9) K/mcL Lymphocytes # 1.7 (0.6-4.6) K/mcL Monocytes # 0.8 (0.0-1.3) K/mcL Eosinophils # 0.1 (0.0-0.6) K/mcL Basophils # 0.0 (0.0-0.2) K/mcL PT 22.9 H (9.4-12.1) Seconds INR 2.0 APTT 37.9 H (26.0-36.0) Seconds D-Dimer < 215 (0-500) ng/mLFEU Sodium 137 (136-145) mEq/L Potassium 3.3 L (3.5-5.1) mEq/L Chloride 104 (98-107) mEq/L Carbon Dioxide 24 (23-29) mEq/L BUN 6 (6-20) mg/dL Creatinine 0.66 (0.60-1.20) mg/dL Est GFR ( Amer) > 60 (> 60) Est GFR (Non-Af Amer) > 60 (> 60) BUN/Creatinine Ratio 9 (6-26) Glucose 217 H (70-105) mg/dL Calculated Osmolality 288 (280-300) Calcium 8.1 L (8.6-10.3) mg/dL Troponin I < 0.03 (< 0.04) ng/mL B-Natriuretic Peptide (Less than 100) pg/mL TSH 1.760 (0.340-5.600) mcIU/mL Urine Color (Yellow) Urine Clarity (Clear) Urine pH (5.0-8.0) pH Units Ur Specific [place] (1.010-1.025) Urine Protein (Neg-Trace) mg/dL Urine Glucose (UA) (Normal) mg/dL Urine Ketones (Negative) mg/dL Urine Blood (Negative) Urine Nitrite (Negative) Urine Bilirubin (Negative) Urine Urobilinogen (Normal) mg/dL Ur Leukocyte Esterase (Negative) Urine Microscopic RBC (0-3) per hpf Urine Microscopic WBC (0-3) per hpf Ur Squamous Epith Cells (None-Few) per lpf Urine Bacteria (None-Few) per hpf Hyaline Casts (None-Few) per lpf Ur Culture Indicated? (NO) 03/17/19 03/17/19 Range/Units 00:34 01:42 WBC (4.3-11.1) K/mcL RBC (3.82-4.97) M/mcL Hgb (11.5-15.4) g/dL Hct (35.3-44.9) % MCV (83.0-100.0) fL MCH (28.0-33.3) pg MCHC (31.6-35.5) g/dL RDW (11.5-14.5) % Plt Count (140-400) K/mcL MPV (9.4-12.4) fL Immature Gran % (0-4) % Seg Neutrophils % % Lymphocytes % % Monocytes % % Eosinophils % % Basophils % % Neutrophils # (1.6-8.9) K/mcL Lymphocytes # (0.6-4.6) K/mcL Monocytes # (0.0-1.3) K/mcL Eosinophils # (0.0-0.6) K/mcL Basophils # (0.0-0.2) K/mcL PT (9.4-12.1) Seconds INR APTT (26.0-36.0) Seconds D-Dimer (0-500) ng/mLFEU Sodium (136-145) mEq/L Potassium (3.5-5.1) mEq/L Chloride (98-107) mEq/L Carbon Dioxide (23-29) mEq/L BUN (6-20) mg/dL Creatinine (0.60-1.20) mg/dL Est GFR ( Amer) (> 60) Est GFR (Non-Af Amer) (> 60) BUN/Creatinine Ratio (6-26) Glucose (70-105) mg/dL Calculated Osmolality (280-300) Calcium (8.6-10.3) mg/dL Troponin I (< 0.04) ng/mL B-Natriuretic Peptide 120 H (Less than 100) pg/mL TSH (0.340-5.600) mcIU/mL Urine Color Yellow (Yellow) Urine Clarity Cloudy A (Clear) Urine pH 5.5 (5.0-8.0) pH Units Ur Specific [place] 1.026 H (1.010-1.025) Urine Protein Negative (Neg-Trace) mg/dL Urine Glucose (UA) >=1000 H (Normal) mg/dL Urine Ketones Negative (Negative) mg/dL Urine Blood Negative (Negative) Urine Nitrite Negative (Negative) Urine Bilirubin Negative (Negative) Urine Urobilinogen Normal (Normal) mg/dL Ur Leukocyte Esterase Negative (Negative) Urine Microscopic RBC 3-5 H (0-3) per hpf Urine Microscopic WBC 5-15 H (0-3) per hpf Ur Squamous Epith Cells Many H (None-Few) per lpf Urine Bacteria Moderate H (None-Few) per hpf Hyaline Casts None Seen (None-Few) per lpf Ur Culture Indicated? YES A (NO) Result diagrams: 03/16/19 22:37 03/16/19 22:37 Lab Results 03/16/19 03/16/19 03/17/19 Range/Units 22:37 22:37 00:28 WBC 11.4 H (4.3-11.1) K/mcL RBC 4.37 (3.82-4.97) M/mcL Hgb 12.1 (11.5-15.4) g/dL Hct 37.2 (35.3-44.9) % MCV 85.1 (83.0-100.0) fL MCH 27.7 L (28.0-33.3) pg MCHC 32.5 (31.6-35.5) g/dL RDW 14.0 (11.5-14.5) % Plt Count 223 (140-400) K/mcL MPV 10.4 (9.4-12.4) fL Immature Gran % 1.0 (0-4) % Seg Neutrophils % 76.1 % Lymphocytes % 15.1 % Monocytes % 6.7 % Eosinophils % 0.7 % Basophils % 0.4 % Neutrophils # 8.7 (1.6-8.9) K/mcL Lymphocytes # 1.7 (0.6-4.6) K/mcL Monocytes # 0.8 (0.0-1.3) K/mcL Eosinophils # 0.1 (0.0-0.6) K/mcL Basophils # 0.0 (0.0-0.2) K/mcL PT 22.9 H (9.4-12.1) Seconds INR 2.0 APTT 37.9 H (26.0-36.0) Seconds D-Dimer < 215 (0-500) ng/mLFEU Sodium 137 (136-145) mEq/L Potassium 3.3 L (3.5-5.1) mEq/L Chloride 104 (98-107) mEq/L Carbon Dioxide 24 (23-29) mEq/L BUN 6 (6-20) mg/dL Creatinine 0.66 (0.60-1.20) mg/dL Est GFR ( Amer) > 60 (> 60) Est GFR (Non-Af Amer) > 60 (> 60) BUN/Creatinine Ratio 9 (6-26) Glucose 217 H (70-105) mg/dL Calculated Osmolality 288 (280-300) Calcium 8.1 L (8.6-10.3) mg/dL Troponin I < 0.03 (< 0.04) ng/mL B-Natriuretic Peptide (Less than 100) pg/mL TSH 1.760 (0.340-5.600) mcIU/mL Urine Color (Yellow) Urine Clarity (Clear) Urine pH (5.0-8.0) pH Units Ur Specific [place] (1.010-1.025) Urine Protein (Neg-Trace) mg/dL Urine Glucose (UA) (Normal) mg/dL Urine Ketones (Negative) mg/dL Urine Blood (Negative) Urine Nitrite (Negative) Urine Bilirubin (Negative) Urine Urobilinogen (Normal) mg/dL Ur Leukocyte Esterase (Negative) Urine Microscopic RBC (0-3) per hpf Urine Microscopic WBC (0-3) per hpf Ur Squamous Epith Cells (None-Few) per lpf Urine Bacteria (None-Few) per hpf Hyaline Casts (None-Few) per lpf Ur Culture Indicated? (NO) 03/17/19 03/17/19 Range/Units 00:34 01:42 WBC (4.3-11.1) K/mcL RBC (3.82-4.97) M/mcL Hgb (11.5-15.4) g/dL Hct (35.3-44.9) % MCV (83.0-100.0) fL MCH (28.0-33.3) pg MCHC (31.6-35.5) g/dL RDW (11.5-14.5) % Plt Count (140-400) K/mcL MPV (9.4-12.4) fL Immature Gran % (0-4) % Seg Neutrophils % % Lymphocytes % % Monocytes % % Eosinophils % % Basophils % % Neutrophils # (1.6-8.9) K/mcL Lymphocytes # (0.6-4.6) K/mcL Monocytes # (0.0-1.3) K/mcL Eosinophils # (0.0-0.6) K/mcL Basophils # (0.0-0.2) K/mcL PT (9.4-12.1) Seconds INR APTT (26.0-36.0) Seconds D-Dimer (0-500) ng/mLFEU Sodium (136-145) mEq/L Potassium (3.5-5.1) mEq/L Chloride (98-107) mEq/L Carbon Dioxide (23-29) mEq/L BUN (6-20) mg/dL Creatinine (0.60-1.20) mg/dL Est GFR ( Amer) (> 60) Est GFR (Non-Af Amer) (> 60) BUN/Creatinine Ratio (6-26) Glucose (70-105) mg/dL Calculated Osmolality (280-300) Calcium (8.6-10.3) mg/dL Troponin I (< 0.04) ng/mL B-Natriuretic Peptide 120 H (Less than 100) pg/mL TSH (0.340-5.600) mcIU/mL Urine Color Yellow (Yellow) Urine Clarity Cloudy A (Clear) Urine pH 5.5 (5.0-8.0) pH Units Ur Specific [place] 1.026 H (1.010-1.025) Urine Protein Negative (Neg-Trace) mg/dL Urine Glucose (UA) >=1000 H (Normal) mg/dL Urine Ketones Negative (Negative) mg/dL Urine Blood Negative (Negative) Urine Nitrite Negative (Negative) Urine Bilirubin Negative (Negative) Urine Urobilinogen Normal (Normal) mg/dL Ur Leukocyte Esterase Negative (Negative) Urine Microscopic RBC 3-5 H (0-3) per hpf Urine Microscopic WBC 5-15 H (0-3) per hpf Ur Squamous Epith Cells Many H (None-Few) per lpf Urine Bacteria Moderate H (None-Few) per hpf Hyaline Casts None Seen (None-Few) per lpf Ur Culture Indicated? YES A (NO) - Radiology Data Radiology results reviewed: Yes I reviewed the patient's radiology results. Chest X-Ray 03/16/19 21:30 IMPRESSION: No acute disease. D/ / Luis E Vargas MD / Luis E Vargas MD Interpreting Provider: Luis E Vargas MD - EKG Data EKG #1 EKG attestation: Yes I reviewed and interpreted this EKG. EKG results narrative: EKG shows sinus tachycardia with a left bundle-branch block at 105 bpm. FL interval 169, QRS duration 145, QT/QTc interval 426/487. No significant ST elevations or depressions. No significant change in morphology when compared to an EKG dated from 02/08/19.
[2019-03-17] MEDS ORDERED: Aspirin 81 MG TAB.CHEW PO ONE (01:44)
[2019-03-17 01:49] LABS: Prothrombin Time 22.9 Seconds (9.4-12.1)
[2019-03-17 01:52] LABS: Activated Partial Thrombo Time 37.9 Seconds (26.0-36.0); D-Dimer < 215 ng/mLFEU (0-500)
[2019-03-17 02:05] LABS: Bilirubin,Urine Negative (Negative); Blood,Urine Negative (Negative); Clarity,Urine Cloudy (Clear); Color,Urine Yellow (Yellow); Glucose,Urine (UA) >=1000 mg/dL (Normal); Ketones,Urine Negative (Negative); Leukocyte Esterase,Urine Negative (Negative); Nitrite,Urine Negative (Negative); PH,Urine 5.5 pH Units (5.0-8.0); Protein,Urine Negative (Neg-Trace); Specific Gravity,Urine 1.026 (1.010-1.025); Urobilinogen,Urine Normal (Normal)
[2019-03-17 02:06] LABS: Bacteria,Urine Moderate per hpf (None-Few); Hyaline Casts,Urine None Seen per lpf (None-Few); Squamous Epithelial Cell,Urine Many per lpf (None-Few)
[2019-03-17] MEDS: Nitroglycerin 0.4 MG TAB.SUBL SL SCH ×3 (02:17→02:52)
[2019-03-17] MEDS ORDERED: cefTRIAXone 1,000 MG in 0.9 % Sodium Chloride Mini Bag 100 ML IVPB ONE (02:28)
[2019-03-17] MEDS ORDERED: Potassium Chloride Elixir 20 MEQ/15 ML UDC PO ONE (03:04)
[2019-03-17] MEDS ORDERED: Acetaminophen 325 MG TABLET PO ONE (03:04)
[2019-03-17] MEDS ORDERED: Naloxone 0.4 MG/ML INJ IVP PRN (03:48)
[2019-03-17] MEDS ORDERED: Furosemide 40 MG/4 ML VIAL IVP ONE (03:50)
[2019-03-17] MEDS ORDERED: Ipratropium/Albuterol Neb 3 ML IH PRN ×2 (03:50→06:35)
[2019-03-17] MEDS ORDERED: D5% in Water 1,000 ML IVC PRN (03:52)
[2019-03-17] MEDS ORDERED: Dextrose Gel 15 GM/37.5 ML TUBE PO PRN ×2 (03:52)
[2019-03-17] MEDS ORDERED: *HR* Dextrose 50 % in Water (Syg) 50 ML SYRINGE IVP PRN (03:52)
--- NOTE | 2019-03-17 04:00 | Emergency Department Note ---
Disposition Clinical Impression: Chest pain, rule out acute myocardial infarction Acute cystitis Qualifiers: Hematuria presence: without hematuria Qualified Code(s): N30.00 - Acute cystitis without hematuria Disposition: Admitted As Inpatient Condition: Good Time of Disposition: 02:56 General Adult HPI - General Chief complaint: ED Chest Pain Stated complaint: chest,arms,neck pain/lightheaded/urinary incont. Time Seen by Provider: 03/17/19 00:16 Source: patient Mode of arrival: ambulatory Limitations: no limitations Nursing Notes Reviewed: Yes Vital Signs Reviewed: Yes - History of Present Illness Location: neck, other (Generalized myalgias, neck) Pain Scale: 4 Quality: aching Improves with: nothing Worsens with: other (Exertion) Associated symptoms: Reports: chest pain, cough, fever/chills (Chills but no recorded fever), malaise, shortness of breath, other (Weight gain, peripheral edema). Denies: nausea/vomiting Treatments Prior to Arrival: none - Related Data Home Medications Medication Instructions Recorded Confirmed Aspirin [Adult Aspirin Regimen] 81 mg PO DAILY 01/21/19 03/17/19 Atorvastatin [Lipitor] 40 mg PO HS 01/21/19 03/17/19 Buspirone HCl [Buspar] 30 mg PO BID 01/21/19 03/17/19 FLUoxetine HCl [Fluoxetine HCl] 80 mg PO DAILY 01/21/19 03/17/19 Metoprolol Succinate [Toprol Xl] 12.5 mg PO BID 01/21/19 03/17/19 Pantoprazole Sodium [Protonix] 40 mg PO DAILY 01/21/19 03/17/19 Quetiapine Fumarate [Seroquel] 300 mg PO HS 01/21/19 03/17/19 Rizatriptan Benzoate [Maxalt Chief Risk Officer] 10 mg PO PRN PRN 01/21/19 03/17/19 Tizanidine HCl [Zanaflex] 2 mg PO HS 01/21/19 03/17/19 Topiramate [Topamax] 50 mg PO BID 01/21/19 03/17/19 Warfarin [Coumadin] 3 mg PO SUTUTHSA 01/21/19 03/17/19 risperiDONE [Risperdal] 2 mg PO HS 01/21/19 03/17/19 Fluticasone Propionate Nasal 1 spr NS DAILY PRN 01/25/19 03/17/19 [Flonase] Gabapentin 800 mg PO TID 01/25/19 03/17/19 Guanfacine HCl 1 mg PO HS 01/25/19 03/17/19 Insulin ASPART [Novolog Flexpen] 3 - 4 unit SQ DAILY 01/25/19 03/17/19 Insulin Glargine,Hum.rec.anlog 30 unit SQ HS 01/25/19 03/17/19 [Lantus Solostar] Ipratropium/Albuterol Sulfate 3 ml IH Q4H PRN 01/25/19 03/17/19 [Iprat-Albut 0.5-3(2.5) mg/3 ml] Meclizine HCl [Verticalm] 25 mg PO BID PRN 01/25/19 03/17/19 Melatonin 5 mg PO HS PRN 01/25/19 03/17/19 Nitroglycerin 0.4 mg SL Q5M PRN MDD [id number] call 01/25/19 03/17/19 911 Propranolol [Inderal] 10 mg PO DAILY PRN 01/25/19 03/17/19 Warfarin Sodium 4 mg PO MOWEFR 01/25/19 03/17/19 hydrOXYzine HCl [Hydroxyzine HCl] 50 mg PO TID 01/25/19 03/17/19 Budesonide/Formoterol 160/4.5 2 puff IH BIDR 02/08/19 03/17/19 [Symbicort 160/4.5] Levalbuterol [Xopenex INH] 2 puff IH Q6H 02/08/19 03/17/19 Ondansetron HCl [Zofran] 4 mg PO Q8HR PRN 02/08/19 03/17/19 OxyCODONE/APAP 5/325 [Percocet 1 each PO Q8HR PRN 02/08/19 03/17/19 5/325 MG] Allergies Allergy/AdvReac Type Severity Reaction Status Date / Time baclofen Allergy Itching Verified 03/17/19 02:51 ciprofloxacin [From Cipro] Allergy Hives Verified 03/17/19 02:51 doxycycline Allergy Hives Verified 03/17/19 02:51 latex Allergy Rash Verified 03/17/19 02:51 Penicillins Allergy Hives Verified 03/17/19 02:51 prednisone Allergy Itching Verified 03/17/19 02:51 Sulfa (Sulfonamide Allergy Hives Verified 03/17/19 02:51 Antibiotics) sulfamethoxazole Allergy Hives Verified 03/17/19 02:51 [From Bactrim] trimethoprim [From Bactrim] Allergy Hives Verified 03/17/19 02:51 cefdinir AdvReac Vomiting Verified 03/17/19 02:51 Constitutional: Denies: fever, chills, weakness, weight change Eyes: Denies: eye pain, eye discharge, vision change ENT ED: Denies: ear pain, throat pain, dental pain, hearing loss, epistaxis, congestion, dysphagia Cardiovascular: Reports: as per HPI, chest pain, dyspnea on exertion, orthopnea, edema. Denies: palpitations, syncope Respiratory: Reports: as per HPI, cough, sputum production. Denies: dyspnea, wheezes, hemoptysis, stridor Gastrointestinal: Denies: abdominal pain, nausea, vomiting, diarrhea, constipation, hematemesis, melena, hematochezia Genitourinary: Reports: as per HPI, other (Decreased urinary frequency). Denies: dysuria, frequency, hematuria, discharge Musculoskeletal: Reports: as per HPI, neck pain, myalgia (Generalized). Denies: back pain, arthralgia Integumentary: Denies: rash, abrasion, lesions Neurological: Denies: headache, weakness, numbness, paresthesias, confusion, abnormal gait, vertigo Psychiatric: Denies: anxiety, depression, suicidal thoughts, homicidal thoughts, auditory hallucinations, visual hallucinations Endocrine: Denies: fatigue Hematological/Lymphatic: Denies: easy bleeding, easy bruising Allergic/Immunologic: Denies: facial swelling, urticaria Past Medical History - Past Medical History Medical history: Reports: atrial fibrillation, CHF, COPD, coronary artery disease, CVA, diabetes, hypertension, myocardial infarction, peripheral artery disease, TIA Surgical history: Reports: appendectomy, cholecystectomy, knee replacement Psychiatric history: Reports: anxiety, depression, panic disorder, prior suicide attempt, previous psychiatric hospitalization 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: bilateral 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 - Social History Smoking Status: Current every day smoker Smokeless Tobacco Status: No Alcohol use: Reports: none Drug use: Reports: none Physical Exam - General Limitations: no limitations General appearance: alert Course Vital Signs Temperature 98.3 F 03/16/19 21:20 Pulse Rate 106 03/16/19 21:20 Respiratory Rate 18 03/16/19 21:20 Blood Pressure 146/92 03/16/19 21:20 O2 Sat by Pulse Oximetry 95 03/16/19 21:20 Temperature 98.3 F 03/17/19 00:47 Pulse Rate 100 03/17/19 02:52 Respiratory Rate 18 03/17/19 03:38 Blood Pressure 139/71 03/17/19 03:38 O2 Sat by Pulse Oximetry 95 03/17/19 02:52 Oxygen Delivery Oxygen Delivery Room Air Medical Decision Making - Medical Records Medical records reviewed: Yes I reviewed the patient's medical records. - Lab Data Lab results reviewed: Yes I reviewed the patient's lab results. Result diagrams: 03/16/19 22:37 03/16/19 22:37 Lab Results 03/16/19 03/16/19 03/17/19 Range/Units 22:37 22:37 00:28 WBC 11.4 H (4.3-11.1) K/mcL RBC 4.37 (3.82-4.97) M/mcL Hgb 12.1 (11.5-15.4) g/dL Hct 37.2 (35.3-44.9) % MCV 85.1 (83.0-100.0) fL MCH 27.7 L (28.0-33.3) pg MCHC 32.5 (31.6-35.5) g/dL RDW 14.0 (11.5-14.5) % Plt Count 223 (140-400) K/mcL MPV 10.4 (9.4-12.4) fL Immature Gran % 1.0 (0-4) % Seg Neutrophils % 76.1 % Lymphocytes % 15.1 % Monocytes % 6.7 % Eosinophils % 0.7 % Basophils % 0.4 % Neutrophils # 8.7 (1.6-8.9) K/mcL Lymphocytes # 1.7 (0.6-4.6) K/mcL Monocytes # 0.8 (0.0-1.3) K/mcL Eosinophils # 0.1 (0.0-0.6) K/mcL Basophils # 0.0 (0.0-0.2) K/mcL PT 22.9 H (9.4-12.1) Seconds INR 2.0 APTT 37.9 H (26.0-36.0) Seconds D-Dimer < 215 (0-500) ng/mLFEU Sodium 137 (136-145) mEq/L Potassium 3.3 L (3.5-5.1) mEq/L Chloride 104 (98-107) mEq/L Carbon Dioxide 24 (23-29) mEq/L BUN 6 (6-20) mg/dL Creatinine 0.66 (0.60-1.20) mg/dL Est GFR ( Amer) > 60 (> 60) Est GFR (Non-Af Amer) > 60 (> 60) BUN/Creatinine Ratio 9 (6-26) Glucose 217 H (70-105) mg/dL Calculated Osmolality 288 (280-300) Calcium 8.1 L (8.6-10.3) mg/dL Troponin I < 0.03 (< 0.04) ng/mL B-Natriuretic Peptide (Less than 100) pg/mL TSH 1.760 (0.340-5.600) mcIU/mL Urine Color (Yellow) Urine Clarity (Clear) Urine pH (5.0-8.0) pH Units Ur Specific [place] (1.010-1.025) Urine Protein (Neg-Trace) mg/dL Urine Glucose (UA) (Normal) mg/dL Urine Ketones (Negative) mg/dL Urine Blood (Negative) Urine Nitrite (Negative) Urine Bilirubin (Negative) Urine Urobilinogen (Normal) mg/dL Ur Leukocyte Esterase (Negative) Urine Microscopic RBC (0-3) per hpf Urine Microscopic WBC (0-3) per hpf Ur Squamous Epith Cells (None-Few) per lpf Urine Bacteria (None-Few) per hpf Hyaline Casts (None-Few) per lpf Ur Culture Indicated? (NO) 03/17/19 03/17/19 Range/Units 00:34 01:42 WBC (4.3-11.1) K/mcL RBC (3.82-4.97) M/mcL Hgb (11.5-15.4) g/dL Hct (35.3-44.9) % MCV (83.0-100.0) fL MCH (28.0-33.3) pg MCHC (31.6-35.5) g/dL RDW (11.5-14.5) % Plt Count (140-400) K/mcL MPV (9.4-12.4) fL Immature Gran % (0-4) % Seg Neutrophils % % Lymphocytes % % Monocytes % % Eosinophils % % Basophils % % Neutrophils # (1.6-8.9) K/mcL Lymphocytes # (0.6-4.6) K/mcL Monocytes # (0.0-1.3) K/mcL Eosinophils # (0.0-0.6) K/mcL Basophils # (0.0-0.2) K/mcL PT (9.4-12.1) Seconds INR APTT (26.0-36.0) Seconds D-Dimer (0-500) ng/mLFEU Sodium (136-145) mEq/L Potassium (3.5-5.1) mEq/L Chloride (98-107) mEq/L Carbon Dioxide (23-29) mEq/L BUN (6-20) mg/dL Creatinine (0.60-1.20) mg/dL Est GFR ( Amer) (> 60) Est GFR (Non-Af Amer) (> 60) BUN/Creatinine Ratio (6-26) Glucose (70-105) mg/dL Calculated Osmolality (280-300) Calcium (8.6-10.3) mg/dL Troponin I (< 0.04) ng/mL B-Natriuretic Peptide 120 H (Less than 100) pg/mL TSH (0.340-5.600) mcIU/mL Urine Color Yellow (Yellow) Urine Clarity Cloudy A (Clear) Urine pH 5.5 (5.0-8.0) pH Units Ur Specific [place] 1.026 H (1.010-1.025) Urine Protein Negative (Neg-Trace) mg/dL Urine Glucose (UA) >=1000 H (Normal) mg/dL Urine Ketones Negative (Negative) mg/dL Urine Blood Negative (Negative) Urine Nitrite Negative (Negative) Urine Bilirubin Negative (Negative) Urine Urobilinogen Normal (Normal) mg/dL Ur Leukocyte Esterase Negative (Negative) Urine Microscopic RBC 3-5 H (0-3) per hpf Urine Microscopic WBC 5-15 H (0-3) per hpf Ur Squamous Epith Cells Many H (None-Few) per lpf Urine Bacteria Moderate H (None-Few) per hpf Hyaline Casts None Seen (None-Few) per lpf Ur Culture Indicated? YES A (NO) - Radiology Data Radiology results reviewed: Yes I reviewed the patient's radiology results. Chest X-Ray 03/16/19 21:30 IMPRESSION: No acute disease. D/ / Luis E Vargas MD / Luis E Vargas MD Interpreting Provider: Luis E Vargas MD - EKG Data EKG #1 EKG attestation: Yes I reviewed and interpreted this EKG. EKG results narrative: EKG shows sinus tachycardia with ventricular rate of 105. Left bundle branch block. This was present on prior EKG dated 02/26/2019. Attestation Statement - Attestation Attestation: I, Brain Longo MD, personally evaluated this patient and discussed their management with the midlevel provicer, PAC/PRECISION FARMING COORDINATOR. I reviewed the midlevel provider's note and agree with the documented findings, medical decision making, and plan of care. 53-year-old female persisted emergency department with a complaint of substernal chest pain over the past 2-3 days off and on. She describes it as a heaviness in the chest. The pain radiates to the neck and left arm. Some shortness of breath. Patient does have a prior cardiac history and has had 3 previous MIs. She has a coronary artery stent. On examination patient is a well-developed obese female in no acute distress. She is alert and oriented 3. There is no cyanosis or diaphoresis. Chest is nontender to palpation. Breath sounds are clear and equal bilaterally. Heart regular rate and rhythm. Abdomen is soft and nontender with normal bowel sounds. EKG shows sinus tachycardia with ventricular rate of 105. Left bundle branch block. This was present on prior EKG dated 02/26/2019. Chest x-ray negative. Labs reviewed. The hospitalist, Dr. Sesay, was consulted and accepted admission of the patient.
--- NOTE | 2019-03-17 04:34 | Internal Med History&Physical ---
<Dom Espino S - Last Filed: 03/17/19 05:48> Date of Encounter: 03/17/19 Time of Encounter: 04:35 Internal Medicine - H&P: HPI Chief complaint: chest pain Admitted From: Home Plans for Post Hospital Care: Home History of present illness: Ms. Strong is a 53 year old female with PMH of atrial fibrillation, CHF, COPD, coronary artery disease, CVA, diabetes, hypertension, myocardial infarction, peripheral artery disease, and TIA. She presents with the chief complaint of chest pain. She has been having progressively worsening generalized fatigue, SOB with exertion, dyspnea at rest, subjective chills, decreased urinary frequency. She has dysuria when she is able to pee. She also complains of substernal and left-sided chest pressure, and neck pain. The chest pain is reproducible upon palpation and she recently moved across town so she was packing a lot of boxes. She denies any abdominal pain or vomiting. She states she doesn't know her dry weight but thinks she has gained some weight over the last few days. She states that she is not on any other diuretic at this point. She recently had an atrial ablation for a fib. In the ER she was found to have a leukocytosis. BNP elevated at 120. She had a negative troponin. She is to be admitted for observation. Past Med Surg Social Fam HX - Past Medical History Medical history: atrial fibrillation, CHF, COPD, coronary artery disease, CVA, diabetes, hypertension, myocardial infarction, peripheral artery disease, TIA Additional medical history: SNEHA with CPAP. diverticulitis. chronic back and leg pain, BRAIN ANEURYSM, MIGRAINES, PNEUMONIA Psychiatric history: anxiety, depression, panic disorder, prior suicide attempt, previous psychiatric hospitalization - Past Surgical History Surgical History: appendectomy, cholecystectomy, knee replacement Additional surgical history: back surgery x5, 2015. [place]. Tonsillectomy. Bladder stimulator 2013. Loop Recorder-2017, FOOT SURGERY x2, ablasion, 1 heart stent. right foot surgery 05/24/2018, right toe #3 amputation 07/20/18. Left PIPJ AD 09/2018 - Social History Smoking Status: Current every day smoker Smokeless Tobacco Status: No Alcohol use: none Drug use: none - Family History Father Adopted: No Family Member Ethnicity: Non- Living Status: Sister Family Member Ethnicity: Non- Living Status: Still Living Grandfather Family Member Ethnicity: Non- Living Status: Hx Family Cardiac Disorders: Yes (MD, CAD) Mother Adopted: No Family Member Ethnicity: Non- Living Status: Hx Family Cardiac Disorders: Yes Hx Family Respiratory Disorders: Yes Hx Family Cancer: No Hx Family GI Disorders: No Hx Family Endocrine Disorder: No Hx Family Neuromuscular Disorders: No Hx Family Neurologic Disorders: No Hx Family HEENT Disorders: No Hx Family Autoimmune Disorders: No Internal Medicine - H&P: Meds Aspirin [Adult Aspirin Regimen] 81 mg PO DAILY 01/21/19 [History] Atorvastatin [Lipitor] 40 mg PO HS 01/21/19 [History] Buspirone HCl [Buspar] 30 mg PO BID 01/21/19 [History] FLUoxetine HCl [Fluoxetine HCl] 80 mg PO DAILY 01/21/19 [History] Metoprolol Succinate [Toprol Xl] 12.5 mg PO BID 01/21/19 [History] Pantoprazole Sodium [Protonix] 40 mg PO DAILY 01/21/19 [History] Quetiapine Fumarate [Seroquel] 300 mg PO HS 01/21/19 [History] Rizatriptan Benzoate [[employer]] 10 mg PO PRN PRN 01/21/19 [History] Tizanidine HCl [Zanaflex] 2 mg PO HS 01/21/19 [History] Topiramate [Topamax] 50 mg PO BID 01/21/19 [History] Warfarin [Coumadin] 3 mg PO SUTUTHSA 01/21/19 [History] risperiDONE [Risperdal] 2 mg PO HS 01/21/19 [History] Fluticasone Propionate Nasal [Flonase] 1 spr NS DAILY PRN 01/25/19 [History] Gabapentin 800 mg PO TID 01/25/19 [History] Guanfacine HCl 1 mg PO HS 01/25/19 [History] Insulin ASPART [Novolog Flexpen] 3 - 4 unit SQ DAILY 01/25/19 [History] Insulin Glargine,Hum.rec.anlog [Lantus Solostar] 30 unit SQ HS 01/25/19 [History] Ipratropium/Albuterol Sulfate [Iprat-Albut 0.5-3(2.5) mg/3 ml] 3 ml IH Q4H PRN 01/25/19 [History] Meclizine HCl [Verticalm] 25 mg PO BID PRN 01/25/19 [History] Melatonin 5 mg PO HS PRN 01/25/19 [History] Nitroglycerin 0.4 mg SL Q5M PRN MDD [id number] call 911 01/25/19 [History] Propranolol [Inderal] 10 mg PO DAILY PRN 01/25/19 [History] Warfarin Sodium 4 mg PO MOWEFR 01/25/19 [History] hydrOXYzine HCl [Hydroxyzine HCl] 50 mg PO TID 01/25/19 [History] Budesonide/Formoterol 160/4.5 [Symbicort 160/4.5] 2 puff IH BIDR 02/08/19 [History] Levalbuterol [Xopenex INH] 2 puff IH Q6H 02/08/19 [History] Ondansetron HCl [Zofran] 4 mg PO Q8HR PRN 02/08/19 [History] OxyCODONE/APAP 5/325 [Percocet 5/325 MG] 1 each PO Q8HR PRN 02/08/19 [History] Allergy/AdvReac Type Severity Reaction Status Date / Time baclofen Allergy Itching Verified 03/17/19 02:51 ciprofloxacin [From Cipro] Allergy Hives Verified 03/17/19 02:51 doxycycline Allergy Hives Verified 03/17/19 02:51 latex Allergy Rash Verified 03/17/19 02:51 Penicillins Allergy Hives Verified 03/17/19 02:51 prednisone Allergy Itching Verified 03/17/19 02:51 Sulfa (Sulfonamide Allergy Hives Verified 03/17/19 02:51 Antibiotics) sulfamethoxazole Allergy Hives Verified 03/17/19 02:51 [From Bactrim] trimethoprim [From Bactrim] Allergy Hives Verified 03/17/19 02:51 cefdinir AdvReac Vomiting Verified 03/17/19 02:51 All Systems PM: A 10-system review of systems was performed and is negative for pertinent findings except as documented above in the HPI. - Constitutional Constitutional: no chills, no fever(s) - EENT Eyes: no blurry vision Ears: no tinnitus Nose, mouth and throat: no bleeding gums, no epistaxis - Cardiovascular Cardiovascular ROS IM: chest pain, dyspnea, dyspnea on exertion - Respiratory Respiratory: dyspnea, dyspnea on exertion, chest congestion, no hemoptysis - Gastrointestinal Gastrointestinal: no abdominal pain, no diarrhea, no nausea, no vomiting - Genitourinary Genitourinary: dysuria, urinary hesitancy, no hematuria - Musculoskeletal Musculoskeletal ROS IM: back pain, neck pain - Integumentary Integumentary IM: no erythema, no unusual bruising - Neurological Neurological ROS: weakness, no headache(s) - Psychiatric Psychiatric: anxiety, depression - Endocrine Endocrine IM: fatigue - Hematologic/Lymphatic Hematologic/Lymphatic: no easy bleeding, no easy bruising - Constitutional Vitals: Temp Pulse Resp BP Pulse Ox 98.3 F 100 18 139/71 95 03/17/19 00:47 03/17/19 02:52 03/17/19 03:38 03/17/19 03:38 03/17/19 02:52 Exam: general - aox3, nad, comfortably lying in bed heent - MMM, NCAT, no scleral icterus neck -supple, no jvd cardio - rrr, s1s2 cta no mrg lungs -rhonchi thruout/crackles at the bases, mild respiratory distress abd - no TTP, no rebound or guarding, obese, no peritoneal signs extremities - moves all extremities equally, 1+ peripheral pitting edema b/l up to knee, strength 5/5 neuro - no FND, sensation intact, CN2-12 intact psych - appropriate mood/affect skin - dry, intact, warm Internal Med - H&P Results - Labs CBC & Chem 7: 03/17/19 04:04 03/17/19 04:04 Labs: Short CBC 03/16/19 Range/Units 22:37 WBC 11.4 H (4.3-11.1) K/mcL Hgb 12.1 (11.5-15.4) g/dL Hct 37.2 (35.3-44.9) % Plt Count 223 (140-400) K/mcL Neutrophils # 8.7 (1.6-8.9) K/mcL BMP 03/16/19 22:37 Sodium 137 Potassium 3.3 L Chloride 104 Carbon Dioxide 24 BUN 6 Creatinine 0.66 Glucose 217 H Calcium 8.1 L Cardiac Enzymes 03/16/19 Range/Units 22:37 Troponin I < 0.03 (< 0.04) ng/mL Urine 03/17/19 Range/Units 01:42 Urine Color Yellow (Yellow) Urine Clarity Cloudy A (Clear) Urine pH 5.5 (5.0-8.0) pH Units Ur Specific [place] 1.026 H (1.010-1.025) Urine Protein Negative (Neg-Trace) mg/dL Urine Glucose (UA) >=1000 H (Normal) mg/dL - Impressions ITS Impressions Chest X-Ray 03/16/19 21:30 IMPRESSION: No acute disease. D/ / Luis E Vargas MD / Luis E Vargas MD Interpreting Provider: Luis E Vargas MD - Assessment and Plan (1) Acute on chronic diastolic (congestive) heart failure Current Visit: Yes Status: Acute Assessment and plan: Pt with increasing SOB from baseline, dyspnea, swelling - exam reveals some scattered rhonchi and mild 1+ pitting edema bilaterally of the LE - elevated BNP at 120, negative troponin - pt unsure of dry weight XR chest showed no acute disease Previous ECHO showed a LVEF of 55% w/ mild diastolic dysfxn in January 2019 EKG from the ER showed sinus tacycardia with LBBB, unchanged from previous EKG Plan: - limited ECHO pending - daily weights - strict I&O - spot diuresis as needed - one time dose of IVP lasix 40mg - FEN: cardiac/ada diet - dvt prophylaxis: on coumadin - dispo: limited ECHO pending, evaluation of urinary retention (2) Acute cystitis Current Visit: Yes Status: Acute Assessment and plan: Pt with dysuria, decreased urination and fevers/chills subjectively Meets SIRS for HR, has remained afebrile in the ER with a WBC of 11.4 Got one dose of rocephin while in the ER, no hx of previous urine cx (+) for resistant organisms Plan: - urine cx pending - con't rocephin day 1 Qualifiers: Hematuria presence: without hematuria Qualified Code(s): N30.00 - Acute cystitis without hematuria (3) Obesity Current Visit: Yes Status: Acute Assessment and plan: BMI 44.7, chronic. Qualifiers: Obesity type: due to excess calories Obesity classification: adult class 3 (BMI >= 40) Serious obesity comorbidity presence: with serious comorbidity Body mass index: BMI 40.0-44.9 Qualified Code(s): E66.01 - Morbid (severe) obesity due to excess calories; Z68.41 - Body mass index (BMI) 40.0-44.9, adult (4) DVT prophylaxis Current Visit: Yes Status: Acute Assessment and plan: on coumadin at home. (5) Hypokalemia Current Visit: Yes Status: Acute Assessment and plan: Potassium 3.3, replaced. (6) COPD (chronic obstructive pulmonary disease) Current Visit: No Status: Chronic Assessment and plan: NOT in acute exacerbation. Duonebs prn. Qualifiers: COPD type: unspecified COPD Qualified Code(s): J44.9 - Chronic obstructive pulmonary disease, unspecified (7) Diabetes mellitus Current Visit: No Status: Chronic Assessment and plan: T2DM on home insulin. Hold home rx. MDSS. Accuchecks. ADA diet. Qualifiers: Diabetes mellitus type: type 2 Diabetes mellitus manager intermediate insulin use: unspecified manager intermediate insulin use status Diabetes mellitus complication status: without complication Qualified Code(s): E11.9 - Type 2 diabetes mellitus without complications (8) HLD (hyperlipidemia) Current Visit: No Status: Chronic Assessment and plan: con't home meds when reconciled. Qualifiers: Hyperlipidemia type: pure hypercholesterolemia Qualified Code(s): E78.00 - Pure hypercholesterolemia, unspecified; E78.0 - Pure hypercholesterolemia (9) HTN (hypertension) Current Visit: No Status: Chronic Assessment and plan: chronic, con't home rx when reconciled. Qualifiers: Hypertension type: essential hypertension Qualified Code(s): I10 - Essential (primary) hypertension (10) SNEHA (obstructive sleep apnea) Current Visit: No Status: Chronic Assessment and plan: SNEHA on CPAP at home. (11) Tobacco abuse Current Visit: No Status: Chronic Assessment and plan: smokes 1/2 ppd. Chronic, counseled. (12) Urinary retention Current Visit: Yes Status: Acute Assessment and plan: Pt reports not being able to pee. Bladder scan now. Straight cath if needed. Urology consult if needed. (13) Chest pain Current Visit: Yes Status: Acute Assessment and plan: Pt reports chest pain. Reproducible on palpation. Pt does state that it is worsened by exertion. Given extensive cardiac hx, will trend troponin x3. Qualifiers: Chest pain type: unspecified Qualified Code(s): R07.9 - Chest pain, unspecified - Time Spent With Patient Total time spent is greater than 50% in coordination of care (as documented) at patient's floor/unit and/or counseling patient: 25 - 35 minutes <Marlen Tapia - Last Filed: 03/17/19 06:34> Date of Encounter: 03/17/19 Internal Medicine - H&P: HPI History of present illness: Ms. Strong is a 53 year old female All Systems PM: A 10-system review of systems was performed and is negative for pertinent findings except as documented above in the HPI. - Constitutional Vitals: Temp Pulse Resp BP Pulse Ox 98.2 F 97 14 135/74 95 03/17/19 04:49 03/17/19 04:49 03/17/19 04:49 03/17/19 04:49 03/17/19 04:49 Internal Med - H&P Results - Labs CBC & Chem 7: 03/17/19 04:04 03/17/19 04:04 Labs: Short CBC 03/16/19 03/17/19 Range/Units 22:37 04:04 WBC 11.4 H 12.2 H (4.3-11.1) K/mcL Hgb 12.1 11.3 L (11.5-15.4) g/dL Hct 37.2 35.0 L (35.3-44.9) % Plt Count 223 226 (140-400) K/mcL Neutrophils # 8.7 (1.6-8.9) K/mcL BMP 03/16/19 03/17/19 22:37 04:04 Sodium 137 136 Potassium 3.3 L 4.2 D Chloride 104 105 Carbon Dioxide 24 21 L BUN 6 6 Creatinine 0.66 0.59 L Glucose 217 H 151 H Calcium 8.1 L 8.0 L Cardiac Enzymes 03/16/19 Range/Units 22:37 Troponin I < 0.03 (< 0.04) ng/mL Urine 03/17/19 Range/Units 01:42 Urine Color Yellow (Yellow) Urine Clarity Cloudy A (Clear) Urine pH 5.5 (5.0-8.0) pH Units Ur Specific [place] 1.026 H (1.010-1.025) Urine Protein Negative (Neg-Trace) mg/dL Urine Glucose (UA) >=1000 H (Normal) mg/dL - Impressions ITS Impressions Chest X-Ray 03/16/19 21:30 IMPRESSION: No acute disease. D/ / Luis E Vargas MD / Luis E Vargas MD Interpreting Provider: Luis E Vargas MD - Time Spent With Patient Total time spent is greater than 50% in coordination of care (as documented) at patient's floor/unit and/or counseling patient: - Attending Attestation I performed a history and physical examination at the patient and discussed her management with the resident. The resident's note and agree with the documented plan of care. Patient is a 53-year-old female with a past medical history of atrial fibr illation, CHF, COPD and coronary artery disease who presented to the ED with complaints of chest pain and shortness of breath. Shortness of breath with exertion and noted increased lower extremity edema. Patient is not currently on a diuretic though has a history of CHF. Most recent echo in January shows an EF of 55% with moderate left ventricular diastolic dysfunction. Patient reports chest pain came on acutely while watching TV described as a substernal throbbing pain radiating to the neck. Chest pain appears to be reproducible with palpation. Patient had recent cardiac ablation in February of this year for her A. fib. Laboratory workup notable for a mild leukocytosis of 11.4, potassium of 3.3, negative troponin and BNP of 120. EKG shows left bundle branch block with no significant change from previous EKG. UA suspicious for UTI and patient does endorse burning with urination. Chest x-ray shows no acute disease. We will admit patient for ACS rule out and possible CHF exacerbation. We will give one- time dose of Lasix Lasix and monitor kidney function and continue to diuresis as needed. Patient receiving antibiotics for UTI. She has been reporting urinary retention. Recommend bladder scan.
[2019-03-17 04:52] LABS: Hemoglobin 11.3 g/dL (11.5-15.4); Mean Corpuscular HGB Conc 32.3 g/dL (31.6-35.5); Mean Corpuscular Volume 83.5 fL (83.0-100.0); Mean Platelet Volume 10.5 fL (9.4-12.4); Platelet Count 226 K/mcL (140-400); Red Blood Count 4.19 M/mcL (3.82-4.97); White Blood Count 12.2 K/mcL (4.3-11.1)
[2019-03-17 05:38] LABS: BUN/Creatinine Ratio 10 (6-26); Blood Urea Nitrogen 6 mg/dL (6-20); Carbon Dioxide 21 mEq/L (23-29); Chloride 105 mEq/L (98-107); Glucose 151 mg/dL (70-105); Magnesium 1.7 mg/dL (1.6-2.6); Osmolality,Calculated 283 (280-300); Potassium 4.2 mEq/L (3.5-5.1); Sodium 136 mEq/L (136-145); eGFR For African Americans > 60 (> 60); eGFR For Non-African Americans > 60 (> 60)
[2019-03-17] MEDS ORDERED: *HR* Heparin 5,000 UNIT/ML VIAL SQ SCH (06:00)
[2019-03-17] MEDS ORDERED: Fluticasone Propionate Nasal 50 MCG/SPRAY BOTTLE NS PRN (06:35)
[2019-03-17] MEDS ORDERED: Melatonin 3 MG TABLET PO PRN (06:35)
[2019-03-17] MEDS ORDERED: Rizatriptan Benzoate [Maxalt Mlt] 10 MG PO PRN (06:35)
[2019-03-17] MEDS ORDERED: Nitroglycerin 0.4 MG TAB.SUBL SL PRN (06:35)
[2019-03-17] MEDS ORDERED: Ondansetron ODT 4 MG TAB.RAPDIS PO PRN (06:35)
[2019-03-17] MEDS: BUSPIRONE HCL 10 MG TABLET PO SCH ×2 (08:46→20:36)
[2019-03-17] MEDS: FLUoxetine 20 MG CAPSULE PO SCH (08:47)
[2019-03-17] MEDS: Metoprolol XL (24 HR) Succ 25 MG TAB.ER.24H PO SCH ×2 (08:47→20:36)
[2019-03-17] MEDS: Topiramate 25 MG TABLET PO SCH ×2 (08:47→20:35)
[2019-03-17] MEDS: hydrOXYzine pamoate 25 MG CAPSULE PO SCH ×3 (08:47→20:36)
[2019-03-17] MEDS: Gabapentin 400 MG CAPSULE PO SCH ×3 (08:47→20:36)
[2019-03-17] MEDS: Aspirin Enteric Coated 81 MG Tablet PO SCH (08:47)
[2019-03-17] MEDS: Insulin LISPRO 300 UNITS/3 ML VIAL SQ SCH ×4 (08:48→20:37)
--- NOTE | 2019-03-17 08:48 | Internal Med Progress Note ---
<Rakesh Camara - Last Filed: 03/17/19 16:52> Hospitalist Progress Note - Encounter Date of Encounter: 03/17/19 Time of Encounter: 08:48 - Subjective Interval History: This is a 53-year-old female with extensive past medical history including atrial fibrillation on Coumadin, CHF, COPD, CAD, diabetes, hypertension, peripheral artery disease, CVA who presented complaining of chest pain. Patient was seen and examined at bedside this morning. She states that her chest pain has resolved at this time. However she still complains of headache, nausea, and cough. States she was unable to really sleep last night. Overall otherwise she is hemodynamically stable. Remains afebrile. O2 sats have been appropriate on room air. She otherwise denies blurry vision, chest pain, vomiting, abdominal pain. - Exam Vitals: Temp Pulse Resp BP Pulse Ox 97.6 F 95 16 141/88 94 03/17/19 07:21 03/17/19 07:21 03/17/19 07:21 03/17/19 07:21 03/17/19 07:21 Exam: GEN: This is a pleasant 53-year-old woman resting in bedside. Vitals stable. No acute distress. AAOx3 HEENT: Atraumatic, Normocephalic, PERRLA, EOMI NECK: Supple, no lymphadenopathy, no JVD CARDIAC: RRR, s1 and s2 present, no murmurs, rubs, gallops PULM: Faint expiratory wheezes bilaterally. Not in respiratory distress, no rales, crackles, rhonchi ABD: Soft, non-tender, non-distended, no guarding or rebound tenderness. Bowel sounds present EXT: No peripheral edema. No calf tenderness, cyanosis, clubbing NEURO: CN 2-12 grossly intact. No focal neurologic deficits. Follows commands PSYCH: Appropriate mood and affect - Assessment and Plan (1) Acute on chronic diastolic (congestive) heart failure Current Visit: Yes Status: Acute Assessment and Plan: This is a 53-year-old female with extensive past medical history including atrial fibrillation on Coumadin, CHF, COPD, CAD, diabetes, hypertension, peripheral artery disease, CVA who presented complaining of chest pain and SOB. - Associated with worsening fatigue, shortness of breath, dyspnea, chills - History of recent ablation procedure due to persistent atrial fibrillation - In the ED, patient had very mild leukocytosis - Troponins negative - BNP = 120 - Chest x-ray did show no acute disease - Most recent echo (01/26/19): LVEF = 55%. Atypical septal motion due to bundle branch block. Mild concentric left ventricular hypertrophy. Moderate left ventricular diastolic dysfunction. Normal right ventricle function. No pulmonary hypertension - EKG: Left bundle branch block with no significant changes from previous EKG - Patient did receive one-time dose of Lasix, aspirin, Tylenol for pain control. She received nitroglycerin which she stated improved pain. - On my examination this morning, patient is resting comfortably at bedside. She denies any further chest pain. She denies any further shortness of breath. She does endorse nausea and mild headache. PLAN: - Patient complaining of worsening fatigue, shortness of breath or chest pain with exertion. Could be secondary to acute CHF exacerbation. - Follow up echocardiography - Follow up stress test - Diuresis as needed - Daily weights - Strict I's and os - Continue with cardiac monitoring - Low sodium, cardiac, diabetic diet (2) Chest pain Current Visit: No Status: Resolved Assessment and Plan: Patient initially presented complaining of chest pain associated with progressively worsening fatigue, shortness of breath, dyspnea. Pain was pressure-like and radiated to the neck - Pain was reproducible on palpation - Patient did say that she had recently been packing boxes and moving - Today she is not complaining of any chest pain or any shortness of breath - Has used nitroglycerin chest resolved chest pain - Troponins negative - BNP = 120 - Chest x-ray did show no acute disease - Most recent echo (01/26/19): LVEF = 55%. Atypical septal motion due to bundle branch block. Mild concentric left ventricular hypertrophy. Moderate left ventricular diastolic dysfunction. Normal right ventricle function. No pulmonary hypertension - EKG: Left bundle branch block with no significant changes from previous EKG PLAN: - Continue to monitor for worsening signs and symptoms of chest pain - Continue cardiac telemetry - Nitroglycerin as needed - Follow up echocardiography and stress test - Continue home medications (3) Acute cystitis Current Visit: Yes Status: Acute Assessment and Plan: Patient initially also complained of dysuria, decreased urination and subjective fevers and chills - She did have mildly elevated white count = 11.4 - Urinalysis did show urine bacteria and white blood cells, but did not show leukocyte esterase or nitrites; additionally did show urine glucose - Was treated with one-time dose of Rocephin in the ED PLAN: - Follow up urine culture - Continue with daily Rocephin (currently day #2) (4) COPD (chronic obstructive pulmonary disease) Current Visit: No Status: Chronic Assessment and Plan: History of COPD. No significant acute exacerbation at this time. - Does endorse occasional cough for the past 1-2 weeks - Describes occasional sputum productionwhite in color - 0.5 pack per day smoker - History of obstructive sleep apnea. States that she should be using CPAP at night, but does not always tolerate using it - Notes that she only uses oxygen sometimes at night when she sleeps when at home - Physical exams morning, faint expiratory wheezes bilaterally; oxygen saturation appropriate on room air PLAN: - Continue duo nebs as needed - Monitor O2 saturation - Supplemental oxygen as needed; titrate to keep O2 sat greater than 80% - Encourage smoking cessation (5) Obesity Current Visit: Yes Status: Acute Assessment and Plan: Chronic - BMI = 45.6 (6) Diabetes mellitus Current Visit: No Status: Chronic Assessment and Plan: History of type 2 diabetes mellitus on home insulin - Urinalysis showed glucose in the urine - Blood glucose this a.m. = 151 PLAN: - Medium dose sliding scale insulin - Accu-Cheks before meals and at bedtime - Diabetic diet (7) HLD (hyperlipidemia) Current Visit: No Status: Chronic Assessment and Plan: History of hyperlipidemia PLAN: - Continue statin (8) HTN (hypertension) Current Visit: No Status: Chronic Assessment and Plan: History of high blood pressure - BP this a.m. = 141/88 PLAN: - Continue home hypertension medications (9) SNEHA (obstructive sleep apnea) Current Visit: No Status: Chronic Assessment and Plan: PLAN: - Encourage CPAP at night (10) Tobacco abuse Current Visit: No Status: Chronic Assessment and Plan: She has a 0.5 pack per day smoker PLAN: - Encourage smoking cessation (11) DVT prophylaxis Current Visit: Yes Status: Acute Assessment and Plan: PLAN: - On Coumadin DVT Prophylaxis: Coumadin - Time Spent with Patient Total time spent is greater than 50% in coordination of care (as documented) at patient's floor/unit and/or counseling patient: less than 15 minutes Plan of Care Discussed with: patient Internal Medicine: Result - Labs CBC & Chem 7: 03/17/19 04:04 03/17/19 04:04 Labs: Short CBC 03/16/19 03/17/19 Range/Units 22:37 04:04 WBC 11.4 H 12.2 H (4.3-11.1) K/mcL Hgb 12.1 11.3 L (11.5-15.4) g/dL Hct 37.2 35.0 L (35.3-44.9) % Plt Count 223 226 (140-400) K/mcL Neutrophils # 8.7 (1.6-8.9) K/mcL BMP 03/16/19 03/17/19 22:37 04:04 Sodium 137 136 Potassium 3.3 L 4.2 D Chloride 104 105 Carbon Dioxide 24 21 L BUN 6 6 Creatinine 0.66 0.59 L Glucose 217 H 151 H Calcium 8.1 L 8.0 L Cardiac Enzymes 03/16/19 03/17/19 Range/Units 22:37 07:18 Troponin I < 0.03 < 0.03 (< 0.04) ng/mL Urine 03/17/19 Range/Units 01:42 Urine Color Yellow (Yellow) Urine Clarity Cloudy A (Clear) Urine pH 5.5 (5.0-8.0) pH Units Ur Specific [place] 1.026 H (1.010-1.025) Urine Protein Negative (Neg-Trace) mg/dL Urine Glucose (UA) >=1000 H (Normal) mg/dL - ABG Interpretation ABG results: PT/INR, D-dimer PT 22.9 Seconds (9.4-12.1) H 03/17/19 00:28 < 215 ng/mLFEU (0-500) 03/17/19 00:28 - Impressions Impressions Chest X-Ray 03/16/19 21:30 IMPRESSION: No acute disease. D/ / Luis E Vargas MD / Luis E Vargas MD Interpreting Provider: Luis E Vargas MD Consult Discharge Plan - Plan Referrals: Maurisio Ward MD [Primary Care Provider] - <Madalyn Benson - Last Filed: 03/17/19 18:03> Hospitalist Progress Note - Encounter Date of Encounter: 03/17/19 - Exam Vitals: Temp Pulse Resp BP Pulse Ox 97.8 F 85 16 120/81 91 03/17/19 14:57 03/17/19 14:57 03/17/19 14:57 03/17/19 14:57 03/17/19 14:57 - Time Spent with Patient Total time spent is greater than 50% in coordination of care (as documented) at patient's floor/unit and/or counseling patient: Internal Medicine: Result - Labs CBC & Chem 7: 03/17/19 04:04 03/17/19 04:04 Labs: Short CBC 03/16/19 03/17/19 Range/Units 22:37 04:04 WBC 11.4 H 12.2 H (4.3-11.1) K/mcL Hgb 12.1 11.3 L (11.5-15.4) g/dL Hct 37.2 35.0 L (35.3-44.9) % Plt Count 223 226 (140-400) K/mcL Neutrophils # 8.7 (1.6-8.9) K/mcL BMP 03/16/19 03/17/19 22:37 04:04 Sodium 137 136 Potassium 3.3 L 4.2 D Chloride 104 105 Carbon Dioxide 24 21 L BUN 6 6 Creatinine 0.66 0.59 L Glucose 217 H 151 H Calcium 8.1 L 8.0 L Cardiac Enzymes 03/16/19 03/17/19 03/17/19 Range/Units 22:37 07:18 12:45 Troponin I < 0.03 < 0.03 < 0.03 (< 0.04) ng/mL Urine 03/17/19 Range/Units 01:42 Urine Color Yellow (Yellow) Urine Clarity Cloudy A (Clear) Urine pH 5.5 (5.0-8.0) pH Units Ur Specific [place] 1.026 H (1.010-1.025) Urine Protein Negative (Neg-Trace) mg/dL Urine Glucose (UA) >=1000 H (Normal) mg/dL - ABG Interpretation ABG results: PT/INR, D-dimer PT 22.9 Seconds (9.4-12.1) H 03/17/19 00:28 < 215 ng/mLFEU (0-500) 03/17/19 00:28 - Impressions Impressions Chest X-Ray 03/16/19 21:30 IMPRESSION: No acute disease. D/ / Luis E Vargas MD / Luis E Vargas MD Interpreting Provider: Luis E Vargas MD - Attending Attestation I examined this patient and my medical decision-making was reviewed with the Resident Physician. I agree with the documented findings, disposition and treatment plan as described except to the extent set forth below. __ <Rakesh Camara - Last Filed: 03/17/19 16:52> (2) Chest pain Qualifiers: Chest pain type: unspecified Qualified Code(s): R07.9 - Chest pain, unspecified (3) Acute cystitis Qualifiers: Hematuria presence: without hematuria Qualified Code(s): N30.00 - Acute cystitis without hematuria (4) COPD (chronic obstructive pulmonary disease) Qualifiers: COPD type: unspecified COPD Qualified Code(s): J44.9 - Chronic obstructive pulmonary disease, unspecified (5) Obesity Qualifiers: Obesity type: due to excess calories Obesity classification: adult class 3 (BMI >= 40) Serious obesity comorbidity presence: with serious comorbidity Body mass index: BMI 40.0-44.9 Qualified Code(s): E66.01 - Morbid (severe) obesity due to excess calories; Z68.41 - Body mass index (BMI) 40.0-44.9, adult (6) Diabetes mellitus Qualifiers: Diabetes mellitus type: type 2 Diabetes mellitus senior living insulin use: unspecified senior living insulin use status Diabetes mellitus complication status: without complication Qualified Code(s): E11.9 - Type 2 diabetes mellitus without complications (7) HLD (hyperlipidemia) Qualifiers: Hyperlipidemia type: pure hypercholesterolemia Qualified Code(s): E78.00 - Pure hypercholesterolemia, unspecified; E78.0 - Pure hypercholesterolemia (8) HTN (hypertension) Qualifiers: Hypertension type: essential hypertension Qualified Code(s): I10 - Essential (primary) hypertension
[2019-03-17] MEDS: Levalbuterol 1 PUFF INHALER IH SCH ×3 (10:29→22:05)
[2019-03-17] MEDS: Budesonide/Formoterol 160/4.5 1 PUFF INH IH SCH ×2 (10:29→22:05)
[2019-03-17] MEDS: *HR* OxyCODONE/APAP 5/325 TABLET PO PRN ×2 (11:28→20:35)
--- NOTE | 2019-03-17 13:29 | Electrocardiograph Report ---
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
[2019-03-17] MEDS ORDERED: *HR* Warfarin 4 MG TABLET PO ONE (18:00)
[2019-03-17] MEDS ORDERED: Warfarin perPT PO PRN (18:00)
[2019-03-17] MEDS: tiZANidine 4 MG TABLET PO SCH (20:36)
[2019-03-17] MEDS: risperiDONE 1 MG TABLET PO SCH (20:36)
[2019-03-18] MEDS: Levalbuterol 1 PUFF INHALER IH SCH ×4 (03:47→22:13)
[2019-03-18 06:31] LABS: INR 1.9; Prothrombin Time 21.8 Seconds (9.4-12.1)
[2019-03-18 06:42] LABS: BUN/Creatinine Ratio 15 (6-26); Blood Urea Nitrogen 9 mg/dL (6-20); Calcium 8.7 mg/dL (8.6-10.3); Carbon Dioxide 25 mEq/L (23-29); Chloride 103 mEq/L (98-107); Glucose 162 mg/dL (70-105); Osmolality,Calculated 286 (280-300); Potassium 3.6 mEq/L (3.5-5.1); Sodium 137 mEq/L (136-145); eGFR For African Americans > 60 (> 60); eGFR For Non-African Americans > 60 (> 60)
[2019-03-18] MEDS ORDERED: Regadenoson 0.4 MG/5 ML SYRINGE IVP ONE (07:09)
[2019-03-18 07:34] LABS: Basophils % 0.3 %; Eosinophils # 0.1 K/mcL (0.0-0.6); Hematocrit 37.9 % (35.3-44.9); Immature Granulocytes % 0.7 % (0-4); Lymphocytes # 1.8 K/mcL (0.6-4.6); Lymphocytes % 18.3 %; Mean Corpuscular HGB Conc 31.7 g/dL (31.6-35.5); Mean Corpuscular Hemoglobin 26.9 pg (28.0-33.3); Mean Platelet Volume 10.4 fL (9.4-12.4); Monocytes # 0.6 K/mcL (0.0-1.3); Monocytes % 6.6 %; Neutrophils # 7.1 K/mcL (1.6-8.9); Platelet Count 226 K/mcL (140-400); Red Blood Count 4.46 M/mcL (3.82-4.97); Segmented Neutrophils % 73.1 %; White Blood Count 9.7 K/mcL (4.3-11.1)
--- NOTE | 2019-03-18 08:07 | Internal Med Progress Note ---
<Rakesh Camara - Last Filed: 03/18/19 15:45> Hospitalist Progress Note - Encounter Date of Encounter: 03/18/19 Time of Encounter: 08:07 - Subjective Interval History: Patient was seen and examined at bedside this morning. She just returned from part one of her stress test. Vitals remained hemodynamically stable. She does note that she feels a little more tired than usual, but otherwise she says her nausea, chest pain, shortness of breath have all gone away. O2 saturations have been appropriate on room air. Lab work looks benign this morning. No acute complaints at this time. - Exam Vitals: Temp Pulse Resp BP Pulse Ox 98.0 F 89 16 105/68 97 03/18/19 07:24 03/18/19 07:24 03/18/19 07:24 03/18/19 07:24 03/18/19 07:42 Exam: GEN: This is a pleasant 53-year-old female who is resting comfortably at bedside. Vitals stable. No acute distress. AAOx3 HEENT: Atraumatic, Normocephalic, PERRLA, EOMI NECK: Supple, no lymphadenopathy, no JVD CARDIAC: RRR, s1 and s2 present, no murmurs, rubs, gallops PULM: CTAB, not in respiratory distress, no wheezes, rales, crackles, rhonchi; O2 saturation appropriate on room air ABD: Soft, non-tender, non-distended, no guarding or rebound tenderness. Bowel sounds present EXT: Mild 1+ pitting edema to the midcalf bilaterally. No calf tenderness, cyanosis, clubbing NEURO: CN 2-12 grossly intact. No focal neurologic deficits. Follows commands PSYCH: Appropriate mood and affect - Assessment and Plan (1) Chest pain Current Visit: Yes Status: Resolved Assessment and Plan: This is a 53-year-old female with extensive past medical history including at [facility] fibrillation on Coumadin, CHF, COPD, CAD, diabetes, hypertension, peripheral artery disease, CVA who presented complaining of chest pain and SOB. - Associated with progressively worsening fatigue, shortness of breath, dyspnea. Pain was pressure-like and radiated to the neck - Pain was reproducible on palpation - Patient did say that she had recently been packing boxes and moving - Today she is not complaining of any chest pain or any shortness of breath - Has used nitroglycerin chest resolved chest pain - Troponins negative - BNP = 120 - Chest x-ray did show no acute disease - Most recent echo (01/26/19): LVEF = 55%. Atypical septal motion due to bundle branch block. Mild concentric left ventricular hypertrophy. Moderate left ventricular diastolic dysfunction. Normal right ventricle function. No pulmonary hypertension - EKG: Left bundle branch block with no significant changes from previous EKG - Echocardiogram (03/17/19): LVEF = 40-45%. Moderate global left ventricular systolic dysfunction. Atypical septal motion consistent with bundle branch block - On exam this morning, patient is resting comfortably in no distress. She denies any further chest pain. She denies any shortness of breath. PLAN: - Continue to monitor for worsening signs and symptoms of chest pain - Continue cardiac telemetry - Nitroglycerin as needed - Follow up stress test day#2 tomorrow - Continue home medications (2) Acute on chronic diastolic (congestive) heart failure Current Visit: Yes Status: Acute Assessment and Plan: This is a 53-year-old female with extensive past medical history including atrial fibrillation on Coumadin, CHF, COPD, CAD, diabetes, hypertension, periphe ral artery disease, CVA who presented complaining of chest pain and SOB. - Associated with worsening fatigue, shortness of breath, dyspnea, chills - History of recent ablation procedure due to persistent atrial fibrillation - In the ED, patient had very mild leukocytosis - Troponins negative - BNP = 120 - Chest x-ray did show no acute disease - Most recent echo (01/26/19): LVEF = 55%. Atypical septal motion due to bundle branch block. Mild concentric left ventricular hypertrophy. Moderate left ventricular diastolic dysfunction. Normal right ventricle function. No pulmonary hypertension - EKG: Left bundle branch block with no significant changes from previous EKG - Patient did receive one-time dose of Lasix, aspirin, Tylenol for pain control. She received nitroglycerin which she stated improved pain. - Echocardiogram (03/17/19): LVEF = 40-45%. Moderate global left ventricular systolic dysfunction. Atypical septal motion consistent with bundle branch block PLAN: - Follow up stress test - Diuresis as needed - Daily weights - Strict I's and os - Continue with cardiac monitoring - Low sodium, cardiac, diabetic diet (3) Acute cystitis Current Visit: Yes Status: Acute Assessment and Plan: Patient initially also complained of dysuria, decreased urination and subjective fevers and chills - She did have mildly elevated white count = 11.4 - Urinalysis did show urine bacteria and white blood cells, but did not show leukocyte esterase or nitrites; additionally did show urine glucose - Was treated with one-time dose of Rocephin in the ED PLAN: - Follow up urine culture - Continue with daily Rocephin (currently day #3) (4) COPD (chronic obstructive pulmonary disease) Current Visit: No Status: Chronic Assessment and Plan: History of COPD. No significant acute exacerbation at this time. - Does endorse occasional cough for the past 1-2 weeks - Describes occasional sputum productionwhite in color - 0.5 pack per day smoker - History of obstructive sleep apnea. States that she should be using CPAP at night, but does not always tolerate using it - Notes that she only uses oxygen sometimes at night when she sleeps when at home - Improving status: Physical exams morning, faint expiratory wheezes bilaterally; oxygen saturation appropriate on room air PLAN: - Continue duo nebs as needed - Monitor O2 saturation - Supplemental oxygen as needed; titrate to keep O2 sat greater than 80% - Encourage smoking cessation (5) Diabetes mellitus Current Visit: No Status: Chronic Assessment and Plan: History of type 2 diabetes mellitus on home insulin - Urinalysis showed glucose in the urine - Blood glucose this a.m. = 162 PLAN: - Medium dose sliding scale insulin - Accu-Cheks before meals and at bedtime - Diabetic diet (6) HLD (hyperlipidemia) Current Visit: No Status: Chronic Assessment and Plan: History of hyperlipidemia PLAN: - Continue statin (7) HTN (hypertension) Current Visit: No Status: Chronic Assessment and Plan: History of high blood pressure - BP this a.m. = 105/68 PLAN: - Continue home hypertension medications (8) SNEHA (obstructive sleep apnea) Current Visit: No Status: Chronic Assessment and Plan: PLAN: - Encourage CPAP at night (9) Tobacco abuse Current Visit: No Status: Chronic Assessment and Plan: She has a 0.5 pack per day smoker PLAN: - Encourage smoking cessation (10) DVT prophylaxis Current Visit: Yes Status: Acute Assessment and Plan: PLAN: - On Coumadin DVT Prophylaxis: Coumadin - Time Spent with Patient Total time spent is greater than 50% in coordination of care (as documented) at patient's floor/unit and/or counseling patient: less than 15 minutes Plan of Care Discussed with: patient Internal Medicine: Result - Labs CBC & Chem 7: 03/18/19 07:12 03/18/19 06:09 Labs: Short CBC 03/18/19 Range/Units 07:12 WBC 9.7 (4.3-11.1) K/mcL Hgb 12.0 (11.5-15.4) g/dL Hct 37.9 (35.3-44.9) % Plt Count 226 (140-400) K/mcL Neutrophils # 7.1 (1.6-8.9) K/mcL BMP 03/18/19 06:09 Sodium 137 Potassium 3.6 Chloride 103 Carbon Dioxide 25 BUN 9 Creatinine 0.62 Glucose 162 H Calcium 8.7 Cardiac Enzymes 03/17/19 03/17/19 Range/Units 12:45 17:36 Troponin I < 0.03 < 0.03 (< 0.04) ng/mL - ABG Interpretation ABG results: PT/INR, D-dimer PT 21.8 Seconds (9.4-12.1) H 03/18/19 06:09 < 215 ng/mLFEU (0-500) 03/17/19 00:28 - Impressions Impressions Echocardiogram Limited Views 03/17/19 05:47 Impressions: LVEF 40-45%. Moderate global left ventricular systolic dysfunction. Atypical septal motion consistent with bundle branch block. Left Ventricular Wall Motion: Rest Echo Findings The apex, apical inferior, mid inferior, basal inferior, apical anterior, mid anterior, basal anterior, apical septal, mid inferior septal, apical lateral, mid anterior lateral, basal anterior lateral, mid anterior septal, mid inferior lateral, basal anterior septal and basal inferior lateral singh were hypokinetic. The basal inferior septal wall was akinetic. Findings: Study Quality * Technically adequate exam. ECG Findings * Sinus rhythm with BBB. Left Ventricle * LVEF 40-45%. * Definity echo contrast was not used. * Atypical septal motion consistent with bundle branch block. * Moderate global left ventricular systolic dysfunction. Consult Discharge Plan - Plan Referrals: Maurisio Ward MD [Primary Care Provider] - <Madalyn Benson - Last Filed: 03/18/19 16:32> Hospitalist Progress Note - Encounter Date of Encounter: 03/18/19 - Exam Vitals: Temp Pulse Resp BP Pulse Ox 98.3 F 88 16 106/71 95 03/18/19 14:53 03/18/19 14:53 03/18/19 14:53 03/18/19 14:53 03/18/19 14:53 - Time Spent with Patient Total time spent is greater than 50% in coordination of care (as documented) at patient's floor/unit and/or counseling patient: Internal Medicine: Result - Labs CBC & Chem 7: 03/18/19 07:12 03/18/19 06:09 Labs: Short CBC 03/18/19 Range/Units 07:12 WBC 9.7 (4.3-11.1) K/mcL Hgb 12.0 (11.5-15.4) g/dL Hct 37.9 (35.3-44.9) % Plt Count 226 (140-400) K/mcL Neutrophils # 7.1 (1.6-8.9) K/mcL BMP 03/18/19 06:09 Sodium 137 Potassium 3.6 Chloride 103 Carbon Dioxide 25 BUN 9 Creatinine 0.62 Glucose 162 H Calcium 8.7 Cardiac Enzymes 03/17/19 Range/Units 17:36 Troponin I < 0.03 (< 0.04) ng/mL - ABG Interpretation ABG results: PT/INR, D-dimer PT 21.8 Seconds (9.4-12.1) H 03/18/19 06:09 < 215 ng/mLFEU (0-500) 03/17/19 00:28 - Impressions Impressions Echocardiogram Limited Views 03/17/19 05:47 Impressions: LVEF 40-45%. Moderate global left ventricular systolic dysfunction. Atypical septal motion consistent with bundle branch block. Left Ventricular Wall Motion: Rest Echo Findings The apex, apical inferior, mid inferior, basal inferior, apical anterior, mid anterior, basal anterior, apical septal, mid inferior septal, apical lateral, mid anterior lateral, basal anterior lateral, mid anterior septal, mid inferior lateral, basal anterior septal and basal inferior lateral singh were hypokinetic. The basal inferior septal wall was akinetic. Findings: Study Quality * Technically adequate exam. ECG Findings * Sinus rhythm with BBB. Left Ventricle * LVEF 40-45%. * Definity echo contrast was not used. * Atypical septal motion consistent with bundle branch block. * Moderate global left ventricular systolic dysfunction. - Attending Attestation I examined this patient and my medical decision-making was reviewed with the Resident Physician. I agree with the documented findings, disposition and treatment plan as described except to the extent set forth below. 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
[2019-03-18] MEDS: BUSPIRONE HCL 10 MG TABLET PO SCH ×2 (09:02→20:09)
[2019-03-18] MEDS: FLUoxetine 20 MG CAPSULE PO SCH (09:03)
[2019-03-18] MEDS: Topiramate 25 MG TABLET PO SCH ×2 (09:03→20:08)
[2019-03-18] MEDS: cefTRIAXone 1,000 MG in Water for inj. (sterile) 20 ML 10 ML IVP SCH (09:03)
[2019-03-18] MEDS: Aspirin Enteric Coated 81 MG Tablet PO SCH (09:03)
[2019-03-18] MEDS: hydrOXYzine pamoate 25 MG CAPSULE PO SCH ×3 (09:03→20:09)
[2019-03-18] MEDS: Metoprolol XL (24 HR) Succ 25 MG TAB.ER.24H PO SCH ×2 (09:03→20:09)
[2019-03-18] MEDS: Gabapentin 400 MG CAPSULE PO SCH ×3 (09:03→20:09)
[2019-03-18] MEDS: Insulin LISPRO 300 UNITS/3 ML VIAL SQ SCH ×4 (09:04→20:10)
[2019-03-18] MEDS: Budesonide/Formoterol 160/4.5 1 PUFF INH IH SCH ×2 (10:40→22:13)
[2019-03-18] MEDS: *HR* OxyCODONE/APAP 5/325 TABLET PO PRN ×2 (10:51→20:09)
[2019-03-18] MEDS ORDERED: *HR* Warfarin 3 MG TABLET PO ONE (18:00)
[2019-03-18] MEDS: risperiDONE 1 MG TABLET PO SCH (20:09)
[2019-03-18] MEDS: tiZANidine 4 MG TABLET PO SCH (20:10)
[2019-03-19] MEDS: Levalbuterol 1 PUFF INHALER IH SCH ×3 (04:13→15:51)
[2019-03-19 05:04] LABS: Basophils % 0.3 %; Eosinophils # 0.1 K/mcL (0.0-0.6); Eosinophils % 0.6 %; Hemoglobin 10.9 g/dL (11.5-15.4); Immature Granulocytes % 0.8 % (0-4); Lymphocytes # 1.9 K/mcL (0.6-4.6); Lymphocytes % 14.9 %; Mean Corpuscular HGB Conc 32.1 g/dL (31.6-35.5); Mean Corpuscular Hemoglobin 27.3 pg (28.0-33.3); Mean Corpuscular Volume 85.2 fL (83.0-100.0); Mean Platelet Volume 10.5 fL (9.4-12.4); Monocytes # 0.8 K/mcL (0.0-1.3); Monocytes % 6.4 %; Neutrophils # 9.8 K/mcL (1.6-8.9); Platelet Count 230 K/mcL (140-400); Red Blood Count 3.99 M/mcL (3.82-4.97); White Blood Count 12.7 K/mcL (4.3-11.1)
[2019-03-19 05:11] LABS: INR 2.1; Prothrombin Time 23.5 Seconds (9.4-12.1)
[2019-03-19 05:24] LABS: BUN/Creatinine Ratio 17 (6-26); Blood Urea Nitrogen 13 mg/dL (6-20); Carbon Dioxide 24 mEq/L (23-29); Chloride 101 mEq/L (98-107); Glucose 216 mg/dL (70-105); Osmolality,Calculated 287 (280-300); Potassium 4.1 mEq/L (3.5-5.1); Sodium 135 mEq/L (136-145); eGFR For African Americans > 60 (> 60); eGFR For Non-African Americans > 60 (> 60)
[2019-03-19] MEDS: hydrOXYzine pamoate 25 MG CAPSULE PO SCH (10:10)
[2019-03-19] MEDS: Gabapentin 400 MG CAPSULE PO SCH (10:10)
[2019-03-19] MEDS: Metoprolol XL (24 HR) Succ 25 MG TAB.ER.24H PO SCH (10:10)
[2019-03-19] MEDS: BUSPIRONE HCL 10 MG TABLET PO SCH (10:10)
[2019-03-19] MEDS: Topiramate 25 MG TABLET PO SCH (10:10)
[2019-03-19] MEDS: FLUoxetine 20 MG CAPSULE PO SCH (10:11)
[2019-03-19] MEDS: cefTRIAXone 1,000 MG in Water for inj. (sterile) 20 ML 10 ML IVP SCH (10:11)
[2019-03-19] MEDS: Insulin LISPRO 300 UNITS/3 ML VIAL SQ SCH ×2 (10:11→12:09)
[2019-03-19] MEDS: Aspirin Enteric Coated 81 MG Tablet PO SCH (10:11)
[2019-03-19] MEDS: Budesonide/Formoterol 160/4.5 1 PUFF INH IH SCH (10:58)
[2019-03-19 11:09] VITALS: BP 111/70
[2019-03-19] MEDS: *HR* OxyCODONE/APAP 5/325 TABLET PO PRN (12:10)
--- NOTE | 2019-03-19 13:52 | Discharge Summary ---
<Anika Durbin - Last Filed: 03/19/19 13:49> - NOTES TO OUTPATIENT PROVIDER Notes to Outpatient Provider: Admitted for chest pain for which cardiac etiology was ruled out. This is most likely musculoskeletal in etiology. Nuclear stress test was negative for ischemia or infarct. Limited echo should 40 to 45% ejection fraction. Patient started on and discharged with lisinopril. Symptoms concerning for UTI she was discharged with Keflex for 2 more days to finish treatment. She follows with urologist Dr. Jean Baptiste for which she has an appointment soon. She follows with the manager furniture Dr. Gregory. Orders not resulted at time of discharge: Pending orders 03/17/19 13:13 NM genevieve perf SPECT multi [NM] Routine 03/20/19 04:00 Prothrombin Time INR [COAG] AM 0400 03/21/19 04:00 Prothrombin Time INR [COAG] AM 0400 03/22/19 04:00 Prothrombin Time INR [COAG] AM 0400 03/23/19 04:00 Prothrombin Time INR [COAG] AM 0400 Date of Encounter: 03/19/19 Time of Encounter: 10:25 - Discharge Diagnosis (1) SNEHA (obstructive sleep apnea) Priority: Secondary Status: Chronic (2) COPD (chronic obstructive pulmonary disease) Priority: Secondary Status: Chronic Qualifiers: COPD type: unspecified COPD Qualified Code(s): J44.9 - Chronic obstructive pulmonary disease, unspecified (3) Tobacco abuse Priority: Secondary Status: Chronic (4) HTN (hypertension) Priority: Secondary Status: Chronic Qualifiers: Hypertension type: essential hypertension Qualified Code(s): I10 - Essential (primary) hypertension (5) HLD (hyperlipidemia) Priority: Secondary Status: Chronic Qualifiers: Hyperlipidemia type: pure hypercholesterolemia Qualified Code(s): E78.00 - Pure hypercholesterolemia, unspecified; E78.0 - Pure hypercholesterolemia (6) Acute on chronic diastolic (congestive) heart failure Priority: Secondary Status: Acute (7) Diabetes mellitus Priority: Secondary Status: Chronic Qualifiers: Diabetes mellitus type: type 2 Diabetes mellitus skilled nursing insulin use: unspecified skilled nursing insulin use status Diabetes mellitus complication status: without complication Qualified Code(s): E11.9 - Type 2 diabetes mellitus without complications (8) Acute cystitis Priority: Secondary Status: Acute Qualifiers: Hematuria presence: without hematuria Qualified Code(s): N30.00 - Acute cystitis without hematuria (9) DVT prophylaxis Priority: Secondary Status: Acute (10) Chest pain Priority: Primary Status: Acute Qualifiers: Chest pain type: unspecified Qualified Code(s): R07.9 - Chest pain, unspecified Hospital course: Ms. Strong is a 53 year old female with PMH of atrial fibrillation, CHF, COPD, coronary artery disease, CVA, diabetes, hypertension, myocardial infarction, peripheral artery disease, and TIA. She presented to the ED complaining of chest pain. She has been having progressively worsening generalized fatigue, SOB with exertion, dyspnea at rest, subjective chills, decreased urinary frequency. She has dysuria when she is able to pee. She also complains of substernal and left-sided chest pressure, and neck pain. The chest pain is reproducible upon palpation and she recently moved across town so she was packing a lot of boxes. She denies any abdominal pain or vomiting. The etiology of the chest pain appear to be more musculoskeletal in etiology. - Troponins negative - BNP = 120 - Chest x-ray did show no acute disease - Most recent echo (01/26/19): LVEF = 55%. Atypical septal motion due to bundle branch block. Mild concentric left ventricular hypertrophy. Moderate left ventricular diastolic dysfunction. Normal right ventricle function. No pulmonary hypertension - EKG: Left bundle branch block with no significant changes from previous EKG - Echocardiogram (03/17/19): LVEF = 40-45%. Moderate global left ventricular systolic dysfunction. Atypical septal motion consistent with bundle branch block - Nuclear stress test: perfusion imaging negative for ischemia or infarct. Pharmacologic stress ECG is non-diagnostic for ischemia due to baseline LBBB. Gated EF = 48%. Medium size, moderate intensity, primarily fixed defect in the mid to apical anterior and anteroseptal segments. Atypical septal motion consistent with a bundle branch block. Findings are most consistent with artifact. Perfusion imaging was negative for ischemia or infarct. Clinical correlation suggested. The patient was started on Rocephin for her symptoms of urinary tract infection with difficulty urinating. She reported she follows with urologist Dr. Jean Baptiste with whom she has an appointment soon. She was discharged with Keflex to finish antibiotic treatment. She was told to call her urologist Dr. Jean Baptiste if her symptoms do not improve to have her appointment with sooner. The patient was started on lisinopril 5 mg due to her CHFrEF. Upon discharge she denied chest pain, shortness of breath, palpitations, cough, diaphoresis, nausea. She was told to follow up with her primary care physician Dr. Ward in one week. She was also instructed follow-up with the manager furniture Dr. Gregory. She was counseled on smoking cessation. She was told to return to the ED should she develop increased chest pain, shortness of breath, diaphoresis, palpitations. Patient was alert and oriented times 3 and stated a clear understanding of the treatment plant. Discharge discussed with: patient Time spent discussing smoking cessation with patient: more than 10 minutes - Time Spent with Patient Total time spent providing and/or coordinating discharge services: Time spent: Greater than 30 minutes - Discharge Medications Prescriptions: New cephALEXin [Keflex] 500 mg PO BID #4 capsule Lisinopril [Zestril] 5 mg PO DAILY #30 tablet Continued Fluticasone Propionate Nasal [Flonase] 2 spr NS QAM PRN PRN Reason: Allergy Symptoms Gabapentin 800 mg PO TID hydrOXYzine HCl [Hydroxyzine HCl] 25 mg PO TID Ipratropium/Albuterol Sulfate [Iprat-Albut 0.5-3(2.5) mg/3 ml] 3 ml IH Q4H PRN PRN Reason: Shortness Of Breath Meclizine HCl [Verticalm] 25 mg PO BID PRN PRN Reason: Vertigo Melatonin 20 mg PO HS Nitroglycerin 0.4 mg SL Q5M PRN PRN Reason: Chest Pain Propranolol [Inderal] 10 mg PO DAILY PRN PRN Reason: Anxiety Warfarin Sodium 4.5 mg PO TUTHSA Guanfacine HCl 2 mg PO HS Levalbuterol [Xopenex INH] 2 puff IH Q6H PRN PRN Reason: Shortness Of Breath Budesonide/Formoterol 160/4.5 [Symbicort 160/4.5] 2 puff IH BIDR OxyCODONE/APAP 5/325 [Percocet 5/325 MG] 1 tab PO Q8HR PRN PRN Reason: Pain Insulin ASPART [NovoLOG] 2 - 10 unit SQ BID Ondansetron ODT [Zofran ODT] 4 mg PO Q8H PRN PRN Reason: NAUSEA/VOMITING Rizatriptan Benzoate [Maxalt] 10 mg PO AD PRN PRN Reason: Migraine Headache Aspirin [Adult Aspirin Regimen] 81 mg PO DAILY Warfarin [Coumadin] 3 mg PO SUMOWE Buspirone HCl [Buspar] 30 mg PO BID Tizanidine HCl [Zanaflex] 2 mg PO HS FLUoxetine HCl [Fluoxetine HCl] 80 mg PO DAILY Atorvastatin [Lipitor] 40 mg PO HS Metoprolol Succinate [Toprol Xl] 12.5 mg PO BID Quetiapine Fumarate [Seroquel] 300 mg PO HS Pantoprazole Sodium [Protonix] 40 mg PO DAILY PRN PRN Reason: GERD Topiramate [Topamax] 50 mg PO BID PRN PRN Reason: Headache risperiDONE [Risperdal] 2 mg PO HS Home Medications: Aspirin [Adult Aspirin Regimen] 81 mg PO DAILY 01/21/19 [History] Atorvastatin [Lipitor] 40 mg PO HS 01/21/19 [History] Buspirone HCl [Buspar] 30 mg PO BID 01/21/19 [History] FLUoxetine HCl [Fluoxetine HCl] 80 mg PO DAILY 01/21/19 [History] Metoprolol Succinate [Toprol Xl] 12.5 mg PO BID 01/21/19 [History] Pantoprazole Sodium [Protonix] 40 mg PO DAILY PRN 01/21/19 [History] Quetiapine Fumarate [Seroquel] 300 mg PO HS 01/21/19 [History] Tizanidine HCl [Zanaflex] 2 mg PO HS 01/21/19 [History] Topiramate [Topamax] 50 mg PO BID PRN 01/21/19 [History] Warfarin [Coumadin] 3 mg PO SUMOWEFR 01/21/19 [History] risperiDONE [Risperdal] 2 mg PO HS 01/21/19 [History] Fluticasone Propionate Nasal [Flonase] 2 spr NS QAM PRN 01/25/19 [History] Gabapentin 800 mg PO TID 01/25/19 [History] Guanfacine HCl 2 mg PO HS 01/25/19 [History] Ipratropium/Albuterol Sulfate [Iprat-Albut 0.5-3(2.5) mg/3 ml] 3 ml IH Q4H PRN 01/25/19 [History] Meclizine HCl [Verticalm] 25 mg PO BID PRN 01/25/19 [History] Melatonin 20 mg PO HS 01/25/19 [History] Nitroglycerin 0.4 mg SL Q5M PRN 01/25/19 [History] Propranolol [Inderal] 10 mg PO DAILY PRN 01/25/19 [History] Warfarin Sodium 4.5 mg PO TUTHSA 01/25/19 [History] hydrOXYzine HCl [Hydroxyzine HCl] 25 mg PO TID 01/25/19 [History] Budesonide/Formoterol 160/4.5 [Symbicort 160/4.5] 2 puff IH BIDR 02/08/19 [History] Levalbuterol [Xopenex INH] 2 puff IH Q6H PRN 02/08/19 [History] OxyCODONE/APAP 5/325 [Percocet 5/325 MG] 1 tab PO Q8HR PRN 02/08/19 [History] Insulin ASPART [NovoLOG] 2 - 10 unit SQ BID 03/18/19 [History] Ondansetron ODT [Zofran ODT] 4 mg PO Q8H PRN 03/18/19 [History] Rizatriptan Benzoate [Maxalt] 10 mg PO AD PRN 03/18/19 [History] Lisinopril [Zestril] 5 mg PO DAILY #30 tablet 03/19/19 [Rx] cephALEXin [Keflex] 500 mg PO BID #4 capsule 03/19/19 [Rx] Allergies/Adverse Reactions: Allergy/AdvReac Type Severity Reaction Status Date / Time baclofen Allergy Itching Verified 03/17/19 02:51 ciprofloxacin [From Cipro] Allergy Hives Verified 03/17/19 02:51 doxycycline Allergy Hives Verified 03/17/19 02:51 latex Allergy Rash Verified 03/17/19 02:51 Penicillins Allergy Hives Verified 03/17/19 02:51 prednisone Allergy Itching Verified 03/17/19 02:51 Sulfa (Sulfonamide Allergy Hives Verified 03/17/19 02:51 Antibiotics) sulfamethoxazole Allergy Hives Verified 03/17/19 02:51 [From Bactrim] trimethoprim [From Bactrim] Allergy Hives Verified 03/17/19 02:51 cefdinir AdvReac Vomiting Verified 03/17/19 02:51 Date of admission: 03/17/19 03:29 Primary care physician: Maurisio Ward MD Consults: 03/19/19 09:18 Consult to Nurse Navigator [CONS] Routine Comment: CHF Discharging clinician: Madalyn Benson Anticipated date of discharge: 03/19/19 - Constitutional Vitals: Temp Pulse Resp BP Pulse Ox 98.2 F 97 16 111/70 92 03/19/19 11:06 03/19/19 11:06 03/19/19 11:06 03/19/19 11:06 03/19/19 11:06 Exam: Gen.: Vitals noted. No acute distress. AAOx3 HEENT: oropharynx clear, Normocephalic, atraumatic Cardiac: RRR, no murmur, +S1/S2 Pulmonary: course breath sounds bilaterally, no wheezes, rales or rhonchi, equal chest expansion Abdomen: soft, nontender, Bowel sounds noted, no guarding MSK: ROM intact, no joint swelling noted Extremities: no BLE edema, nontender calf, no cyanosis or clubbing Neuro: A&Ox3, moves all extremities, no focal deficits Psych: Appropriate mood and behavior - Patient Status Disposition: Home, Self-Care Condition: Good Functional capacity at discharge: independent ambulation Overall status at discharge: patient is back to baseline - Discharge Instructions Follow Up With: Maurisio Ward MD [Primary Care Provider] - (Appt has been requested. ) Humble Gregory DO [Partnered Physician] - (Appt has been requested. Office will call with date and time of appointment. ) Forms: ED Satisfaction Letter Additional Instructions: - Continue taking your home heart medications including the new medication lisinopril 5 mg daily. -Follow-up with your primary care physician Dr. Ward in a week. Follow-up with your manager furniture Dr. Gregory. -Finished taking the antibiotic Keflex for your urinary tract infection. If you continue to be symptomatic call to move your appointment sooner with your urologist Dr. Jean Baptiste. -Return to the hospital should you develop increaser worsened chest pain, diaphoresis, shortness of breath. - Diet and Activity Activity: resume usual activities as tolerated Diet: low salt diet <Madalyn Benson - Last Filed: 03/19/19 19:27> Orders not resulted at time of discharge: Pending orders 03/17/19 13:13 NM genevieve perf SPECT multi [NM] Routine Date of Encounter: 03/19/19 - Discharge Diagnosis (1) SNEHA (obstructive sleep apnea) Status: Chronic (2) COPD (chronic obstructive pulmonary disease) Status: Chronic Qualifiers: COPD type: unspecified COPD Qualified Code(s): J44.9 - Chronic obstructive pulmonary disease, unspecified (3) Tobacco abuse Status: Chronic (4) HTN (hypertension) Status: Chronic Qualifiers: Hypertension type: essential hypertension Qualified Code(s): I10 - Essential (primary) hypertension (5) HLD (hyperlipidemia) Status: Chronic Qualifiers: Hyperlipidemia type: pure hypercholesterolemia Qualified Code(s): E78.00 - Pure hypercholesterolemia, unspecified; E78.0 - Pure hypercholesterolemia (6) Acute on chronic diastolic (congestive) heart failure Status: Acute (7) DVT prophylaxis Status: Acute (8) Diabetes mellitus Status: Chronic Qualifiers: Diabetes mellitus type: type 2 Diabetes mellitus skilled nursing insulin use: unspecified skilled nursing insulin use status Diabetes mellitus complication status: without complication Qualified Code(s): E11.9 - Type 2 diabetes mellitus without complications (9) Acute cystitis Status: Acute Qualifiers: Hematuria presence: without hematuria Qualified Code(s): N30.00 - Acute cystitis without hematuria (10) Chest pain Status: Acute Qualifiers: Chest pain type: unspecified Qualified Code(s): R07.9 - Chest pain, unspecified Hospital course: Ms. Strong is a 53 year old female - Time Spent with Patient Total time spent providing and/or coordinating discharge services: Date of admission: 03/17/19 03:29 Primary care physician: Maurisio Ward MD Consults: 03/19/19 09:18 Consult to Nurse Navigator [CONS] Routine Comment: CHF - Constitutional Vitals: Temp Pulse Resp BP Pulse Ox 98.2 F 97 18 111/70 93 03/19/19 11:06 03/19/19 11:06 03/19/19 15:51 03/19/19 11:06 03/19/19 15:51 - Attending Attestation I examined this patient and my medical decision-making was reviewed with the Resident Physician. I agree with the documented findings, disposition and treatment plan as described except to the extent set forth below.
[2019-03-19] MEDS ORDERED: *HR* Warfarin 4 MG TABLET PO ONE (18:00)
== END 2019-03-19 17:56 | disposition home or self-care (01) ==
LOC: EMEROOARM 21:17 → 3BNU 21:17 → SUATTDRO 03-17 03:29 → 3BNU 03-17 03:51
PROVIDERS: ADMIT Internal Medicine; ATTEND Student in an Organized Health Care Education/Training Program

== ENCOUNTER 2019-04-22 11:01 | Observation (INO) ==
[2019-04-22] MEDS ORDERED: 0.9 % Sodium Chloride 1,000 ML IVC ONE (11:39)
[2019-04-22 12:08] LABS: Bilirubin,Urine Negative (Negative); Blood,Urine Negative (Negative); Clarity,Urine Cloudy (Clear); Color,Urine Yellow (Yellow); Glucose,Urine (UA) 100 mg/dL (Normal); Ketones,Urine Negative (Negative); Leukocyte Esterase,Urine Moderate (Negative); Nitrite,Urine Negative (Negative); Protein,Urine Negative (Neg-Trace); Specific Gravity,Urine 1.005 (1.010-1.025); Urobilinogen,Urine Normal (Normal)
--- NOTE | 2019-04-22 12:08 | Emergency Department Note ---
Disposition Clinical Impression: Generalized weakness UTI (urinary tract infection) Qualifiers: Urinary tract infection type: acute cystitis Hematuria presence: without hematuria Qualified Code(s): N30.00 - Acute cystitis without hematuria Hypotension Qualifiers: Hypotension type: unspecified hypotension type Qualified Code(s): I95.9 - Hypotension, unspecified Disposition: Admitted As Inpatient Condition: Fair Referrals: Maurisio Ward MD [Primary Care Provider] - Forms: ED Satisfaction Letter, Work/School Release Time of Disposition: 16:14 General Adult HPI - General Chief complaint: ED General Medical Stated complaint: "low bp" Time Seen by Provider: 04/22/19 11:30 Source: patient Limitations: no limitations - History of Present Illness Pain Scale: 0 - Related Data Home Medications Medication Instructions Recorded Confirmed Aspirin [Adult Aspirin Regimen] 81 mg PO DAILY 01/21/19 03/18/19 Atorvastatin [Lipitor] 40 mg PO HS 01/21/19 03/18/19 Buspirone HCl [Buspar] 30 mg PO BID 01/21/19 03/18/19 FLUoxetine HCl [Fluoxetine HCl] 80 mg PO DAILY 01/21/19 03/18/19 Metoprolol Succinate [Toprol Xl] 12.5 mg PO BID 01/21/19 03/18/19 Pantoprazole Sodium [Protonix] 40 mg PO DAILY PRN 01/21/19 03/18/19 Quetiapine Fumarate [Seroquel] 300 mg PO HS 01/21/19 03/18/19 Tizanidine HCl [Zanaflex] 2 mg PO HS 01/21/19 03/18/19 Topiramate [Topamax] 50 mg PO BID PRN 01/21/19 03/18/19 Warfarin [Coumadin] 3 mg PO SUMOWEFR 01/21/19 03/18/19 risperiDONE [Risperdal] 2 mg PO HS 01/21/19 03/18/19 Fluticasone Propionate Nasal 2 spr NS QAM PRN 01/25/19 03/18/19 [Flonase] Gabapentin 800 mg PO TID 01/25/19 03/18/19 Guanfacine HCl 2 mg PO HS 01/25/19 03/18/19 Ipratropium/Albuterol Sulfate 3 ml IH Q4H PRN 01/25/19 03/18/19 [Iprat-Albut 0.5-3(2.5) mg/3 ml] Meclizine HCl [Verticalm] 25 mg PO BID PRN 01/25/19 03/18/19 Melatonin 20 mg PO HS 01/25/19 03/18/19 Nitroglycerin 0.4 mg SL Q5M PRN 01/25/19 03/18/19 Propranolol [Inderal] 10 mg PO DAILY PRN 01/25/19 03/18/19 Warfarin Sodium 4.5 mg PO TUTHSA 01/25/19 03/18/19 hydrOXYzine HCl [Hydroxyzine HCl] 25 mg PO TID 01/25/19 03/18/19 Budesonide/Formoterol 160/4.5 2 puff IH BIDR 02/08/19 02/08/19 [Symbicort 160/4.5] Levalbuterol [Xopenex INH] 2 puff IH Q6H PRN 02/08/19 03/18/19 OxyCODONE/APAP 5/325 [Percocet 1 tab PO Q8HR PRN 02/08/19 03/18/19 5/325 MG] Insulin ASPART [NovoLOG] 2 - 10 unit SQ BID 03/18/19 03/18/19 Ondansetron ODT [Zofran ODT] 4 mg PO Q8H PRN 03/18/19 03/18/19 Rizatriptan Benzoate [Maxalt] 10 mg PO AD PRN 03/18/19 03/18/19 Previous Rx's Medication Instructions Recorded Lisinopril [Zestril] 5 mg PO DAILY #30 tablet 03/19/19 cephALEXin [Keflex] 500 mg PO BID #4 capsule 03/19/19 Allergies Allergy/AdvReac Type Severity Reaction Status Date / Time baclofen Allergy Itching Verified 03/17/19 02:51 ciprofloxacin [From Cipro] Allergy Hives Verified 03/17/19 02:51 doxycycline Allergy Hives Verified 03/17/19 02:51 latex Allergy Rash Verified 03/17/19 02:51 Penicillins Allergy Hives Verified 03/17/19 02:51 prednisone Allergy Itching Verified 03/17/19 02:51 Sulfa (Sulfonamide Allergy Hives Verified 03/17/19 02:51 Antibiotics) sulfamethoxazole Allergy Hives Verified 03/17/19 02:51 [From Bactrim] trimethoprim [From Bactrim] Allergy Hives Verified 03/17/19 02:51 cefdinir AdvReac Vomiting Verified 03/17/19 02:51 Past Medical History - Past Medical History Medical history: Reports: atrial fibrillation, CHF, COPD, coronary artery disease, CVA, diabetes, hypertension, myocardial infarction, peripheral artery disease, TIA Surgical history: Reports: appendectomy, cholecystectomy, knee replacement Psychiatric history: Reports: anxiety, depression, panic disorder, prior suicide attempt, previous psychiatric hospitalization [employer] history: Reports: bilateral 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 - Social History Smoking Status: Current every day smoker Smokeless Tobacco Status: No Alcohol use: Reports: none Drug use: Reports: none Physical Exam - General Limitations: no limitations Course Vital Signs Temperature 97.8 F 04/22/19 11:04 Pulse Rate 98 04/22/19 11:04 Respiratory Rate 18 04/22/19 11:04 Blood Pressure 111/77 04/22/19 11:04 O2 Sat by Pulse Oximetry 95 04/22/19 11:04 Temperature 97.8 F 04/22/19 12:01 Pulse Rate 89 04/22/19 13:31 Respiratory Rate 12 04/22/19 13:00 Blood Pressure 99/66 04/22/19 13:31 O2 Sat by Pulse Oximetry 95 04/22/19 13:00 Oxygen Delivery Oxygen Delivery Room Air Medical Decision Making - Lab Data Result diagrams: 04/22/19 12:17 04/22/19 12:17 Lab Results 04/22/19 04/22/19 04/22/19 Range/Units 11:49 12:17 12:17 WBC 7.3 (4.3-11.1) K/mcL RBC 4.60 (3.82-4.97) M/mcL Hgb 12.2 (11.5-15.4) g/dL Hct 39.1 (35.3-44.9) % MCV 85.0 (83.0-100.0) fL MCH 26.5 L (28.0-33.3) pg MCHC 31.2 L (31.6-35.5) g/dL RDW 14.6 H (11.5-14.5) % Plt Count 209 (140-400) K/mcL MPV 10.4 (9.4-12.4) fL Immature Gran % 0.7 (0-4) % Seg Neutrophils % 66.6 % Lymphocytes % 24.7 % Monocytes % 5.7 % Eosinophils % 1.8 % Basophils % 0.5 % Neutrophils # 4.9 (1.6-8.9) K/mcL Lymphocytes # 1.8 (0.6-4.6) K/mcL Monocytes # 0.4 (0.0-1.3) K/mcL Eosinophils # 0.1 (0.0-0.6) K/mcL Basophils # 0.0 (0.0-0.2) K/mcL Sodium 135 L (136-145) mEq/L Potassium 4.4 (3.5-5.1) mEq/L Chloride 101 (98-107) mEq/L Carbon Dioxide 25 (23-29) mEq/L BUN 12 (6-20) mg/dL Creatinine 0.81 (0.60-1.20) mg/dL Est GFR ( Amer) > 60 (> 60) Est GFR (Non-Af Amer) > 60 (> 60) BUN/Creatinine Ratio 15 (6-26) Glucose 232 H (70-105) mg/dL Calculated Osmolality 287 (280-300) Calcium 9.2 (8.6-10.3) mg/dL Total Bilirubin 0.2 L (0.3-1.0) mg/dL AST 42 H (13-39) Units/L ALT 39 (7-52) Units/L Alkaline Phosphatase 129 H (34-104) Units/L Troponin I < 0.03 (< 0.04) ng/mL Serum Total Protein 6.6 (6.4-8.9) g/dL Albumin 3.7 (3.5-5.7) g/dL Globulin 2.9 (2.4-3.5) g/dL Albumin/Globulin Ratio 1.3 (1.1-2.2) TSH 1.231 (0.340-5.600) mcIU/mL Urine Color Yellow (Yellow) Urine Clarity Cloudy A (Clear) Urine pH 6.0 (5.0-8.0) pH Units Ur Specific [place] 1.005 L (1.010-1.025) Urine Protein Negative (Neg-Trace) mg/dL Urine Glucose (UA) 100 H (Normal) mg/dL Urine Ketones Negative (Negative) mg/dL Urine Blood Negative (Negative) Urine Nitrite Negative (Negative) Urine Bilirubin Negative (Negative) Urine Urobilinogen Normal (Normal) mg/dL Ur Leukocyte Esterase Moderate H (Negative) Urine Microscopic RBC 0-3 (0-3) per hpf Urine Microscopic WBC 30-50 H (0-3) per hpf Ur Squamous Epith Cells Many H (None-Few) per lpf Urine Bacteria Moderate H (None-Few) per hpf Hyaline Casts None Seen (None-Few) per lpf Ur Culture Indicated? YES A (NO) Attestation Statement - Attestation Attestation: Hilton Muniz D.O., examined this patient and my medical decision-making was reviewed with the Resident Physician. I agree with the documented findings, disposition and treatment plan as described except to the extent set forth below. Patient seen in conjunction with Dr. Juan. [id number] time provided. Please see his documentation as well for history, physical as well as ED course and disposition. I had [id number] time with the patient. In brief 53-year-old female history of coronary artery disease, atrial fibrillation on Coumadin who presents due to generalized fatigue for 1 week. States that they changed her metoprolol from 25 daily to 50 roughly 1 week ago when she started expressing the symptoms. These are exactly the same symptoms she experienced the last time they attempted to change her medication. States that she is on it for an e levated heart rate. States that she has just had generalized malaise at home. Denies any chest pain at any point. She feels more short of breath with activity. Exam: Alert, no acute distress. She was ambulating with assistance upon my arrival. Heart is regular rate and rhythm. Lungs are clear to auscultation bilaterally. Abdomen is soft nontender. Extremity is or without edema. She is alert, mentating properly and answering questions appropriately. Plan: Symptoms seem consistent with her recent change her blood pressure medication. Nevertheless plan for EKG, chest x-ray and labs to exclude alternative etiology. If these are normal will likely be able to discuss with cardiology about medication adjustment and close follow-up as an outpatient for the patient. Imaging labs reviewed. Urinalysis to ensure to questionable UTI. She did have some soft pressures during her stay here with a map that ended up around 62. The patient feels symptomatic when she gets up and walks around the does not feel comfortable going home at this point. It is not unreasonable given her symptoms as well as likely medication side effect and concomitant UTI for admission. The patient is admitted to the hospital service under Dr. Crawford. ED procedure note: EKG interpretation: I agree with resident physician interpretation a documentation of the EKG. EKG showed sinus rhythm with a left bundle branch block. Rate of 92 bpm. Normal axis. Prolonged QRS ration 138. No significant changes from previous EKG dated 03/16/19.
[2019-04-22 12:11] LABS: Bacteria,Urine Moderate per hpf (None-Few); Hyaline Casts,Urine None Seen per lpf (None-Few); RBC,Urine 0-3 per hpf (0-3); Squamous Epithelial Cell,Urine Many per lpf (None-Few); WBC,Urine 30-50 per hpf (0-3)
--- NOTE | 2019-04-22 12:38 | Emergency Department Note ---
Disposition Clinical Impression: Generalized weakness UTI (urinary tract infection) Qualifiers: Urinary tract infection type: acute cystitis Hematuria presence: without hematuria Qualified Code(s): N30.00 - Acute cystitis without hematuria Hypotension Qualifiers: Hypotension type: unspecified hypotension type Qualified Code(s): I95.9 - Hypotension, unspecified Disposition: Admitted As Inpatient Condition: Fair Time of Disposition: 20:46 General Adult HPI - General Chief complaint: ED General Medical Stated complaint: "low bp" Time Seen by Provider: 04/22/19 11:30 Source: patient Mode of arrival: ambulatory Limitations: no limitations Nursing Notes Reviewed: Yes Vital Signs Reviewed: Yes - History of Present Illness HPI Narrative: Patient is a 53-year-old female with a past medical history of atrial fibrillation, CHF, COPD, CAD with cardiac stent placement as well as history of ablation as well as CVA, TIA presents to the ED for evaluation of fatigue. Patient states that this past week she had her medication, metoprolol increased from 25 to 50 mg states that over this past week she just felt more tired and fatigued states this morning she is feels like sleeping all day since she came in for evaluation. She states that this has happened in the past with medication changes. Denies headache, chest pain, shortness of breath, abdominal pain, nausea, vomiting, diarrhea or cough or congestion or urinary symptoms. Pain Scale: 0 - Related Data Home Medications Medication Instructions Recorded Confirmed Aspirin [Adult Aspirin Regimen] 81 mg PO DAILY 01/21/19 04/22/19 Atorvastatin [Lipitor] 40 mg PO HS 01/21/19 04/22/19 Buspirone HCl [Buspar] 30 mg PO BID 01/21/19 04/22/19 FLUoxetine HCl [Fluoxetine HCl] 80 mg PO DAILY 01/21/19 04/22/19 Metoprolol Succinate [Toprol Xl] 25 mg PO BID 01/21/19 04/22/19 Pantoprazole Sodium [Protonix] 40 mg PO DAILY PRN 01/21/19 04/22/19 Quetiapine Fumarate [Seroquel] 400 mg PO HS 01/21/19 04/22/19 Tizanidine HCl [Zanaflex] 2 mg PO HS 01/21/19 04/22/19 Topiramate [Topamax] 50 mg PO BID PRN 01/21/19 04/22/19 Warfarin [Coumadin] 3 mg PO SUMOWEFR 01/21/19 04/22/19 Fluticasone Propionate Nasal 2 spr NS QAM PRN 01/25/19 04/22/19 [Flonase] Gabapentin 800 mg PO TID 01/25/19 04/22/19 Guanfacine HCl 3 mg PO HS 01/25/19 04/22/19 Ipratropium/Albuterol Sulfate 3 ml IH Q4H PRN 01/25/19 04/22/19 [Iprat-Albut 0.5-3(2.5) mg/3 ml] Meclizine HCl [Verticalm] 25 mg PO BID PRN 01/25/19 04/22/19 Melatonin 20 mg PO HS 01/25/19 04/22/19 Nitroglycerin 0.4 mg SL Q5M PRN 01/25/19 04/22/19 Propranolol [Inderal] 10 mg PO DAILY PRN 01/25/19 04/22/19 Warfarin Sodium 4.5 mg PO TUTHSA 01/25/19 04/22/19 hydrOXYzine HCl [Hydroxyzine HCl] 25 mg PO TID 01/25/19 04/22/19 Budesonide/Formoterol 160/4.5 2 puff IH BIDR 02/08/19 04/22/19 [Symbicort 160/4.5] Levalbuterol [Xopenex INH] 2 puff IH Q6H PRN 02/08/19 04/22/19 OxyCODONE/APAP 5/325 [Percocet 1 tab PO Q8HR PRN 02/08/19 04/22/19 5/325 MG] Insulin ASPART [NovoLOG] 2 - 10 unit SQ BID 03/18/19 04/22/19 Ondansetron ODT [Zofran ODT] 4 mg PO Q8H PRN 03/18/19 04/22/19 Rizatriptan Benzoate [Maxalt] 10 mg PO AD PRN 03/18/19 04/22/19 clonazePAM [Klonopin] 0.5 mg PO PRN PRN 04/22/19 04/22/19 Previous Rx's Medication Instructions Recorded Lisinopril [Zestril] 5 mg PO DAILY #30 tablet 03/19/19 cephALEXin [Keflex] 500 mg PO BID #4 capsule 03/19/19 Allergies Allergy/AdvReac Type Severity Reaction Status Date / Time baclofen Allergy Itching Verified 03/17/19 02:51 ciprofloxacin [From Cipro] Allergy Hives Verified 03/17/19 02:51 doxycycline Allergy Hives Verified 03/17/19 02:51 latex Allergy Rash Verified 03/17/19 02:51 Penicillins Allergy Hives Verified 03/17/19 02:51 prednisone Allergy Itching Verified 03/17/19 02:51 Sulfa (Sulfonamide Allergy Hives Verified 03/17/19 02:51 Antibiotics) sulfamethoxazole Allergy Hives Verified 03/17/19 02:51 [From Bactrim] trimethoprim [From Bactrim] Allergy Hives Verified 03/17/19 02:51 cefdinir AdvReac Vomiting Verified 03/17/19 02:51 All systems ED: reviewed and negative except as stated. Review of Systems: As Per HPI Constitutional: Reports: weakness. Denies: fever, chills Cardiovascular: Denies: chest pain, palpitations, dyspnea on exertion Respiratory: Denies: cough, dyspnea, wheezes Gastrointestinal: Denies: abdominal pain, nausea, vomiting, diarrhea Genitourinary: Denies: urgency, dysuria, frequency Musculoskeletal: Denies: back pain, neck pain Integumentary: Denies: rash Neurological: Denies: headache, weakness, numbness, paresthesias Past Medical History - Past Medical History Attestation: Yes The following information was validated with the patient. Medical history: Reports: atrial fibrillation, CHF, COPD, coronary artery disease, CVA, diabetes, hypertension, myocardial infarction, peripheral artery disease, TIA Surgical history: Reports: appendectomy, cholecystectomy, knee replacement Psychiatric history: Reports: anxiety, depression, panic disorder, prior suicide attempt, previous psychiatric hospitalization [employer] history: Reports: bilateral 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 - Social History Smoking Status: Current every day smoker Smokeless Tobacco Status: No Alcohol use: Reports: none Drug use: Reports: none Physical Exam CONSTITUTIONAL: Well-appearing; well-nourished; A&O X 3, in no apparent distress HEAD: Normocephalic; atraumatic EYES: PERRL, no scleral icterus NOSE: The nose is normal in appearance without rhinorrhea NECK: No JVD or distended neck veins RESP: Normal chest excursion with respiration; breath sounds clear and equal bilaterally; no wheezes, rhonchi, or rales CARD: Regular rhythm, without murmurs, rub or gallop ABD: Non-distended; non-tender, soft, without rigidity, rebound or guarding,no pulsatile mass CHEST: No pain with palpation SKIN: Normal for age and race; warm and dry without diaphoresis ; no apparent lesions EXTREMITIES: Pulses are 2 plus and equal times 4 extremities, no peripheral edema or calf muscle pain NEUROLOGICAL: Patient is alert and oriented times three. Cranial nerves III- XII are intact. Sensory and motor functions are intact. Strength is 5/5 for flexion and extension in all 4 extremities. Patellar DTRS are equal and intact. Finger to nose testing is equal and normal bilaterally. - General Limitations: no limitations Course Course Narrative: Patient underwent evaluation for her weakness and fatigue. The evaluation is unremarkable however given patient's current state of being mildly drowsy on exam and having soft blood pressures discussed the patient's case with the hosp italists and recommendations of coming in the hospital for overnight absent observation and then holding her increased dose of metoprolol tomorrow and then reassessing the patient's symptoms and they agree with that plan. Patient's urines concerning for possible urinary tract infection in the setting of weakness she will be treated given a dose in the ED. Vital Signs Temperature 97.8 F 04/22/19 11:04 Pulse Rate 98 04/22/19 11:04 Respiratory Rate 18 04/22/19 11:04 Blood Pressure 111/77 04/22/19 11:04 O2 Sat by Pulse Oximetry 95 04/22/19 11:04 Temperature 98.5 F 04/22/19 20:30 Pulse Rate 86 04/22/19 20:30 Respiratory Rate 16 04/22/19 20:30 Blood Pressure 100/64 04/22/19 20:30 O2 Sat by Pulse Oximetry 95 04/22/19 20:30 Oxygen Delivery Oxygen Delivery Room Air Medical Decision Making - Medical Records Medical records reviewed: Yes I reviewed the patient's medical records. - Lab Data Lab results reviewed: Yes I reviewed the patient's lab results. Result diagrams: 04/22/19 12:17 04/22/19 12:17 Lab Results 04/22/19 04/22/19 04/22/19 Range/Units 11:49 12:17 12:17 WBC 7.3 (4.3-11.1) K/mcL RBC 4.60 (3.82-4.97) M/mcL Hgb 12.2 (11.5-15.4) g/dL Hct 39.1 (35.3-44.9) % MCV 85.0 (83.0-100.0) fL MCH 26.5 L (28.0-33.3) pg MCHC 31.2 L (31.6-35.5) g/dL RDW 14.6 H (11.5-14.5) % Plt Count 209 (140-400) K/mcL MPV 10.4 (9.4-12.4) fL Immature Gran % 0.7 (0-4) % Seg Neutrophils % 66.6 % Lymphocytes % 24.7 % Monocytes % 5.7 % Eosinophils % 1.8 % Basophils % 0.5 % Neutrophils # 4.9 (1.6-8.9) K/mcL Lymphocytes # 1.8 (0.6-4.6) K/mcL Monocytes # 0.4 (0.0-1.3) K/mcL Eosinophils # 0.1 (0.0-0.6) K/mcL Basophils # 0.0 (0.0-0.2) K/mcL PT (9.4-12.1) Seconds INR Sodium 135 L (136-145) mEq/L Potassium 4.4 (3.5-5.1) mEq/L Chloride 101 (98-107) mEq/L Carbon Dioxide 25 (23-29) mEq/L BUN 12 (6-20) mg/dL Creatinine 0.81 (0.60-1.20) mg/dL Est GFR ( Amer) > 60 (> 60) Est GFR (Non-Af Amer) > 60 (> 60) BUN/Creatinine Ratio 15 (6-26) Glucose 232 H (70-105) mg/dL POC Glucose (70-99) mg/dL Calculated Osmolality 287 (280-300) Calcium 9.2 (8.6-10.3) mg/dL Total Bilirubin 0.2 L (0.3-1.0) mg/dL AST 42 H (13-39) Units/L ALT 39 (7-52) Units/L Alkaline Phosphatase 129 H (34-104) Units/L Troponin I < 0.03 (< 0.04) ng/mL Serum Total Protein 6.6 (6.4-8.9) g/dL Albumin 3.7 (3.5-5.7) g/dL Globulin 2.9 (2.4-3.5) g/dL Albumin/Globulin Ratio 1.3 (1.1-2.2) TSH 1.231 (0.340-5.600) mcIU/mL Urine Color Yellow (Yellow) Urine Clarity Cloudy A (Clear) Urine pH 6.0 (5.0-8.0) pH Units Ur Specific [place] 1.005 L (1.010-1.025) Urine Protein Negative (Neg-Trace) mg/dL Urine Glucose (UA) 100 H (Normal) mg/dL Urine Ketones Negative (Negative) mg/dL Urine Blood Negative (Negative) Urine Nitrite Negative (Negative) Urine Bilirubin Negative (Negative) Urine Urobilinogen Normal (Normal) mg/dL Ur Leukocyte Esterase Moderate H (Negative) Urine Microscopic RBC 0-3 (0-3) per hpf Urine Microscopic WBC 30-50 H (0-3) per hpf Ur Squamous Epith Cells Many H (None-Few) per lpf Urine Bacteria Moderate H (None-Few) per hpf Hyaline Casts None Seen (None-Few) per lpf Ur Culture Indicated? YES A (NO) 04/22/19 04/22/19 Range/Units 15:30 17:41 WBC (4.3-11.1) K/mcL RBC (3.82-4.97) M/mcL Hgb (11.5-15.4) g/dL Hct (35.3-44.9) % MCV (83.0-100.0) fL MCH (28.0-33.3) pg MCHC (31.6-35.5) g/dL RDW (11.5-14.5) % Plt Count (140-400) K/mcL MPV (9.4-12.4) fL Immature Gran % (0-4) % Seg Neutrophils % % Lymphocytes % % Monocytes % % Eosinophils % % Basophils % % Neutrophils # (1.6-8.9) K/mcL Lymphocytes # (0.6-4.6) K/mcL Monocytes # (0.0-1.3) K/mcL Eosinophils # (0.0-0.6) K/mcL Basophils # (0.0-0.2) K/mcL PT 17.8 H (9.4-12.1) Seconds INR 1.6 Sodium (136-145) mEq/L Potassium (3.5-5.1) mEq/L Chloride (98-107) mEq/L Carbon Dioxide (23-29) mEq/L BUN (6-20) mg/dL Creatinine (0.60-1.20) mg/dL Est GFR ( Amer) (> 60) Est GFR (Non-Af Amer) (> 60) BUN/Creatinine Ratio (6-26) Glucose (70-105) mg/dL POC Glucose 123 H (70-99) mg/dL Calculated Osmolality (280-300) Calcium (8.6-10.3) mg/dL Total Bilirubin (0.3-1.0) mg/dL AST (13-39) Units/L ALT (7-52) Units/L Alkaline Phosphatase (34-104) Units/L Troponin I (< 0.04) ng/mL Serum Total Protein (6.4-8.9) g/dL Albumin (3.5-5.7) g/dL Globulin (2.4-3.5) g/dL Albumin/Globulin Ratio (1.1-2.2) TSH (0.340-5.600) mcIU/mL Urine Color (Yellow) Urine Clarity (Clear) Urine pH (5.0-8.0) pH Units Ur Specific [place] (1.010-1.025) Urine Protein (Neg-Trace) mg/dL Urine Glucose (UA) (Normal) mg/dL Urine Ketones (Negative) mg/dL Urine Blood (Negative) Urine Nitrite (Negative) Urine Bilirubin (Negative) Urine Urobilinogen (Normal) mg/dL Ur Leukocyte Esterase (Negative) Urine Microscopic RBC (0-3) per hpf Urine Microscopic WBC (0-3) per hpf Ur Squamous Epith Cells (None-Few) per lpf Urine Bacteria (None-Few) per hpf Hyaline Casts (None-Few) per lpf Ur Culture Indicated? (NO) - Radiology Data Radiology results reviewed: Yes I reviewed the patient's radiology results. Chest X-Ray 04/22/19 11:39 IMPRESSION: No acute airspace disease identified. D/ / Derick Robledo / Derick Robledo Interpreting Provider: Derick Robledo - EKG Data EKG #1 EKG attestation: Yes I reviewed and interpreted this EKG. EKG results narrative: EKG done at 11:56 shows sinus rhythm at a rate of 92 bpm. Normal axis. Intervals within normal limits, except patient has QRS widening running at 138. QT is prolonged when corrected to 521. Patient has left bundle branch block which appears to be old when compared to EKG done and March 2019. Attestation Statement - Attestation Attestation: Hilton Muniz D.O., examined this patient and my medical decision-making was reviewed with the Resident Physician. I agree with the documented findings, disposition and treatment plan as described except to the extent set forth below.
[2019-04-22 12:41] LABS: Basophils % 0.5 %; Eosinophils # 0.1 K/mcL (0.0-0.6); Eosinophils % 1.8 %; Hematocrit 39.1 % (35.3-44.9); Hemoglobin 12.2 g/dL (11.5-15.4); Immature Granulocytes % 0.7 % (0-4); Lymphocytes # 1.8 K/mcL (0.6-4.6); Lymphocytes % 24.7 %; Mean Corpuscular HGB Conc 31.2 g/dL (31.6-35.5); Mean Corpuscular Hemoglobin 26.5 pg (28.0-33.3); Mean Platelet Volume 10.4 fL (9.4-12.4); Monocytes # 0.4 K/mcL (0.0-1.3); Monocytes % 5.7 %; Neutrophils # 4.9 K/mcL (1.6-8.9); Platelet Count 209 K/mcL (140-400); Red Cell Distribution Width 14.6 % (11.5-14.5); Segmented Neutrophils % 66.6 %; White Blood Count 7.3 K/mcL (4.3-11.1)
[2019-04-22 13:05] LABS: Alanine Aminotransferase 39 Units/L (7-52); Albumin 3.7 g/dL (3.5-5.7); Albumin/Globulin Ratio 1.3 (1.1-2.2); Alkaline Phosphatase 129 Units/L (34-104); Aspartate Amino Transferase 42 Units/L (13-39); BUN/Creatinine Ratio 15 (6-26); Bilirubin,Total 0.2 mg/dL (0.3-1.0); Blood Urea Nitrogen 12 mg/dL (6-20); Calcium 9.2 mg/dL (8.6-10.3); Carbon Dioxide 25 mEq/L (23-29); Chloride 101 mEq/L (98-107); Globulin 2.9 g/dL (2.4-3.5); Glucose 232 mg/dL (70-105); Osmolality,Calculated 287 (280-300); Potassium 4.4 mEq/L (3.5-5.1); Sodium 135 mEq/L (136-145); Total Protein 6.6 g/dL (6.4-8.9); eGFR For African Americans > 60 (> 60); eGFR For Non-African Americans > 60 (> 60)
[2019-04-22 13:06] LABS: Troponin I < 0.03 ng/mL (< 0.04)
[2019-04-22 13:19] LABS: Thyroid Stimulating Hormone 1.231 mcIU/mL (0.340-5.600)
[2019-04-22] MEDS ORDERED: cephALEXin 250 MG CAPSULE PO STA (13:45)
--- NOTE | 2019-04-22 16:14 | Internal Med History&Physical ---
Date of Encounter: 04/22/19 Time of Encounter: 16:12 Internal Medicine - H&P: HPI Chief complaint: weakness Admitted From: Home Plans for Post Hospital Care: Home History of present illness: Ms. Strong is a 53 year old female with past medical history of systolic and diastolic CHF, COPD, CVA, atrial fibrillation status post ablation on warfarin, TIA, diabetes, migraine came in with complain of fatigue and weakness since her metoprolol dose was increased about a week ago. Recently had stress test done which was unremarkable. Patient echocardiogram showed EF of 40-45%. She was started on lisinopril at that time. Patient was recently seen by cardiology who increased her dose of metoprolol from 25 to 50. She mentions since after that she has been feeling much more fatigued. She took her metoprolol this morning. She measured her blood pressure was 99 over 40s. 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 Patient was related continue ER with level to date a mostly unremarkable. Her UA was normal but was poor sample. She did receive a dose of ceftriaxone in ER. Patient denies any increased frequency or urgency or dysuria. Denies any fevers chills nausea vomiting or diarrhea. Denies any sore throat or cough or shortness of breath. EKG was unremarkable for ischemic changes but did show left bundle branch which is chronic. Troponin was unremarkable. Admission was requested for observation given her blood pressure was on the lower end and for weakness. Past Med Surg Social Fam HX - Past Medical History Medical history: atrial fibrillation, CHF, COPD, coronary artery disease, CVA, diabetes, hypertension, myocardial infarction, peripheral artery disease, TIA Additional medical history: SNEHA with CPAP. diverticulitis. chronic back and leg pain, BRAIN ANEURYSM, MIGRAINES, PNEUMONIA Psychiatric history: anxiety, depression, panic disorder, prior suicide attempt, previous psychiatric hospitalization - Past Surgical History Surgical History: appendectomy, cholecystectomy, knee replacement Additional surgical history: back surgery x5, 2015. [place]. Tonsillectomy. Bladder stimulator 2013. Loop Recorder-2017, FOOT SURGERY x2, ablasion, 1 heart stent. right foot surgery 05/24/2018, right toe #3 amputation 07/20/18. Left PIPJ AD 09/2018 - Social History Smoking Status: Current every day smoker Smokeless Tobacco Status: No Alcohol use: none Drug use: none - Family History Father Adopted: No Family Member Ethnicity: Non- Living Status: Sister Family Member Ethnicity: Non- Living Status: Still Living Grandfather Family Member Ethnicity: Non- Living Status: Hx Family Cardiac Disorders: Yes ([place], CAD) Mother Adopted: No Family Member Ethnicity: Non- Living Status: Hx Family Cardiac Disorders: Yes Hx Family Respiratory Disorders: Yes Hx Family Cancer: No Hx Family GI Disorders: No Hx Family Endocrine Disorder: No Hx Family Neuromuscular Disorders: No Hx Family Neurologic Disorders: No Hx Family HEENT Disorders: No Hx Family Autoimmune Disorders: No Internal Medicine - H&P: Meds Aspirin [Adult Aspirin Regimen] 81 mg PO DAILY 01/21/19 [History] Atorvastatin [Lipitor] 40 mg PO HS 01/21/19 [History] Buspirone HCl [Buspar] 30 mg PO BID 01/21/19 [History] FLUoxetine HCl [Fluoxetine HCl] 80 mg PO DAILY 01/21/19 [History] Metoprolol Succinate [Toprol Xl] 12.5 mg PO BID 01/21/19 [History] Pantoprazole Sodium [Protonix] 40 mg PO DAILY PRN 01/21/19 [History] Quetiapine Fumarate [Seroquel] 300 mg PO HS 01/21/19 [History] Tizanidine HCl [Zanaflex] 2 mg PO HS 01/21/19 [History] Topiramate [Topamax] 50 mg PO BID PRN 01/21/19 [History] Warfarin [Coumadin] 3 mg PO SUMOWEFR 01/21/19 [History] risperiDONE [Risperdal] 2 mg PO HS 01/21/19 [History] Fluticasone Propionate Nasal [Flonase] 2 spr NS QAM PRN 01/25/19 [History] Gabapentin 800 mg PO TID 01/25/19 [History] Guanfacine HCl 2 mg PO HS 01/25/19 [History] Ipratropium/Albuterol Sulfate [Iprat-Albut 0.5-3(2.5) mg/3 ml] 3 ml IH Q4H PRN 01/25/19 [History] Meclizine HCl [Verticalm] 25 mg PO BID PRN 01/25/19 [History] Melatonin 20 mg PO HS 01/25/19 [History] Nitroglycerin 0.4 mg SL Q5M PRN 01/25/19 [History] Propranolol [Inderal] 10 mg PO DAILY PRN 01/25/19 [History] Warfarin Sodium 4.5 mg PO TUTHSA 01/25/19 [History] hydrOXYzine HCl [Hydroxyzine HCl] 25 mg PO TID 01/25/19 [History] Budesonide/Formoterol 160/4.5 [Symbicort 160/4.5] 2 puff IH BIDR 02/08/19 [History] Levalbuterol [Xopenex INH] 2 puff IH Q6H PRN 02/08/19 [History] OxyCODONE/APAP 5/325 [Percocet 5/325 MG] 1 tab PO Q8HR PRN 02/08/19 [History] Insulin ASPART [NovoLOG] 2 - 10 unit SQ BID 03/18/19 [History] Ondansetron ODT [Zofran ODT] 4 mg PO Q8H PRN 03/18/19 [History] Rizatriptan Benzoate [Maxalt] 10 mg PO AD PRN 03/18/19 [History] Lisinopril [Zestril] 5 mg PO DAILY #30 tablet 03/19/19 [Rx] cephALEXin [Keflex] 500 mg PO BID #4 capsule 03/19/19 [Rx] Allergy/AdvReac Type Severity Reaction Status Date / Time baclofen Allergy Itching Verified 03/17/19 02:51 ciprofloxacin [From Cipro] Allergy Hives Verified 03/17/19 02:51 doxycycline Allergy Hives Verified 03/17/19 02:51 latex Allergy Rash Verified 03/17/19 02:51 Penicillins Allergy Hives Verified 03/17/19 02:51 prednisone Allergy Itching Verified 03/17/19 02:51 Sulfa (Sulfonamide Allergy Hives Verified 03/17/19 02:51 Antibiotics) sulfamethoxazole Allergy Hives Verified 03/17/19 02:51 [From Bactrim] trimethoprim [From Bactrim] Allergy Hives Verified 03/17/19 02:51 cefdinir AdvReac Vomiting Verified 03/17/19 02:51 All Systems PM: A 10-system review of systems was performed and is negative for pertinent findings except as documented above in the HPI. - Constitutional Vitals: Temp Pulse Resp BP Pulse Ox 97.8 F 89 12 99/66 95 04/22/19 12:01 04/22/19 13:31 04/22/19 13:00 04/22/19 13:31 04/22/19 13:00 Exam: Constitutional: Vitals as noted. Conversant. No Apparent Distress. Morbidly obese Eyes : Sclera white, conjunctiva clear, no lid lag, [place]. ENT : Grossly normal hearing. Oropharyngeal exam unremarkable. Moist mucus membranes. Respiratory : Clear to auscultation bilaterally. No accessory muscle use, rales, rhonchi or wheezes Cardiovascular : RRR, +S1, +S2. no murmur, gallop, rubs. No chest wall tenderness GI/Abdominal : Soft, Non-tender, Non-distended, normal bowel sounds, soft, no peritoneal signs. no orgenomegaly or mass appreciated. no hernia. Musculoskeletal: no deformity noted.trace edema, warm extremities, pulses palpable and symmetrical in UE/LE. no calf tenderness. Neurological: AO X3, CN II-XII grossly intact, grossly normal motor and sensory exam. Skin: No skin rash, lesions or ulcers noted. Pych: Good insight and judgement. poor memory. AOx3. Internal Med - H&P Results - Labs CBC & Chem 7: 04/22/19 12:17 04/22/19 12:17 Labs: Short CBC 04/22/19 Range/Units 12:17 WBC 7.3 (4.3-11.1) K/mcL Hgb 12.2 (11.5-15.4) g/dL Hct 39.1 (35.3-44.9) % Plt Count 209 (140-400) K/mcL Neutrophils # 4.9 (1.6-8.9) K/mcL BMP 04/22/19 12:17 Sodium 135 L Potassium 4.4 Chloride 101 Carbon Dioxide 25 BUN 12 Creatinine 0.81 Glucose 232 H Calcium 9.2 Cardiac Enzymes 04/22/19 Range/Units 12:17 Troponin I < 0.03 (< 0.04) ng/mL Liver Function 04/22/19 Range/Units 12:17 Total Bilirubin 0.2 L (0.3-1.0) mg/dL AST 42 H (13-39) Units/L ALT 39 (7-52) Units/L Alkaline Phosphatase 129 H (34-104) Units/L Albumin 3.7 (3.5-5.7) g/dL Urine 04/22/19 Range/Units 11:49 Urine Color Yellow (Yellow) Urine Clarity Cloudy A (Clear) Urine pH 6.0 (5.0-8.0) pH Units Ur Specific [place] 1.005 L (1.010-1.025) Urine Protein Negative (Neg-Trace) mg/dL Urine Glucose (UA) 100 H (Normal) mg/dL - EKG Data -: EKG Interpreted by Myself EKG shows normal: sinus rhythm (LBBB) - Impressions ITS Impressions Chest X-Ray 04/22/19 11:39 IMPRESSION: No acute airspace disease identified. D/ / Derick Robledo / Derick Robledo Interpreting Provider: Derick Robledo - Assessment and Plan (1) Weakness Current Visit: No Status: Acute Assessment and plan: Likely related to her hypertension. She was started on lisinopril on her last admission and recently her metoprolol dose was increased. Symptoms correlated after her dose was increased. She felt better after she got a fluid bolus and her blood pressure improved. We will observe patient for next 24 hours and hold her metoprolol for now. We will also hold gabapentin and may decrease dose on discharge. Most likely can be discharged tomorrow if blood pressure continues to be stable. We will revert back her metoprolol dose to previous dosages. She does not know all her medication. Will need confirmation of her home medication accurately before discharge. (2) Afib Current Visit: No Status: Chronic Assessment and plan: Continue home Qualifiers: Atrial fibrillation type: paroxysmal Qualified Code(s): I48.0 - Paroxysmal atrial fibrillation (3) CAD (coronary artery disease) Current Visit: No Status: Chronic Assessment and plan: continue rest home medications once confirmed. Qualifiers: Coronary Disease-Associated Artery/Lesion type: [place] artery [place] vs. transplanted heart: [place] heart Associated angina: without angina Qualified Code(s): I25.10 - Atherosclerotic heart disease of [place] coronary artery without angina pectoris (4) COPD (chronic obstructive pulmonary disease) Current Visit: No Status: Chronic Assessment and plan: Not in exacerbation Continue home inhalers Qualifiers: COPD type: unspecified COPD Qualified Code(s): J44.9 - Chronic obstructive pulmonary disease, unspecified (5) Diabetes mellitus type 2 in obese Current Visit: No Status: Chronic Assessment and plan: Keep on sliding scale insulin and Accu-Cheks before meals and at bedtime 10 Levemir at Night for Now. We Will Await Confirmation of Home Meds an Update If Needed. (6) HLD (hyperlipidemia) Current Visit: No Status: Chronic Assessment and plan: continue statin Qualifiers: Hyperlipidemia type: pure hypercholesterolemia Qualified Code(s): E78.00 - Pure hypercholesterolemia, unspecified; E78.0 - Pure hypercholesterolemia (7) HTN (hypertension) Current Visit: No Status: Chronic Assessment and plan: hold antihypertensive for today. Will resume tomorrow. Qualifiers: Hypertension type: essential hypertension Qualified Code(s): I10 - Essential (primary) hypertension (8) Morbid obesity with BMI of 40.0-44.9, adult Current Visit: No Status: Chronic (9) DVT prophylaxis Current Visit: No Status: Acute Assessment and plan: on coumadin (10) CHF (congestive heart failure) Current Visit: Yes Status: Acute Assessment and plan: Has systolic and diastolic CHF On aspirin, statin and Lisinopril. Beta lizzette held for today given presentation. Will resume tomorrow at lower dose before discharge. Qualifiers: Heart failure type: combined systolic and diastolic Heart failure chron icity: chronic Qualified Code(s): I50.42 - Chronic combined systolic (congestive) and diastolic (congestive) heart failure - Time Spent With Patient Total time spent is greater than 50% in coordination of care (as documented) at patient's floor/unit and/or counseling patient:
[2019-04-22] MEDS ORDERED: Naloxone 0.4 MG/ML INJ IVP PRN (16:44)
[2019-04-22] MEDS ORDERED: Ringers Solution, Lactated 1,000 ML IVC SCH (16:45)
[2019-04-22 17:52] LABS: INR 1.6; Prothrombin Time 17.8 Seconds (9.4-12.1)
[2019-04-22] MEDS ORDERED: Warfarin perPT PO PRN (18:00)
[2019-04-22] MEDS ORDERED: *HR* Warfarin 5 MG TABLET PO ONE (19:00)
[2019-04-22] MEDS: Insulin LISPRO 300 UNITS/3 ML VIAL SQ SCH (19:36)
[2019-04-22] MEDS: Budesonide/Formoterol 160/4.5 1 PUFF INH IH SCH (20:27)
[2019-04-22] MEDS ORDERED: Insulin DETEMIR 100 UNIT/ML X5UNITS SQ SCH (21:00)
[2019-04-22] MEDS ORDERED: Ringers Solution, Lactated 500 ML ONE (21:10)
[2019-04-22] MEDS: hydrOXYzine pamoate 25 MG CAPSULE PO SCH (21:16)
[2019-04-22] MEDS ORDERED: Acetaminophen IV 500 MG/50 ML INFUS..BTL IVPB ONE (21:21)
[2019-04-22] MEDS ORDERED: Nicotine 7 MG PATCH.TD24 TD SCH (21:30)
[2019-04-23 07:03] LABS: INR 1.6; Prothrombin Time 17.7 Seconds (9.4-12.1)
[2019-04-23 07:16] LABS: BUN/Creatinine Ratio 13 (6-26); Blood Urea Nitrogen 11 mg/dL (6-20); Calcium 8.8 mg/dL (8.6-10.3); Carbon Dioxide 26 mEq/L (23-29); Chloride 102 mEq/L (98-107); Glucose 165 mg/dL (70-105); Osmolality,Calculated 287 (280-300); Potassium 4.4 mEq/L (3.5-5.1); Sodium 137 mEq/L (136-145); eGFR For African Americans > 60 (> 60); eGFR For Non-African Americans > 60 (> 60)
[2019-04-23] MEDS: Budesonide/Formoterol 160/4.5 1 PUFF INH IH SCH (07:39)
[2019-04-23] MEDS ORDERED: FLUoxetine 20 MG CAPSULE PO SCH (09:00)
[2019-04-23] MEDS ORDERED: Aspirin Enteric Coated 81 MG Tablet PO SCH (09:00)
[2019-04-23] MEDS: hydrOXYzine pamoate 25 MG CAPSULE PO SCH (09:37)
[2019-04-23] MEDS: Insulin LISPRO 300 UNITS/3 ML VIAL SQ SCH ×2 (09:38→12:12)
[2019-04-23] MEDS ORDERED: Ondansetron 4 MG/2 ML VIAL IVP PRN (10:50)
[2019-04-23 12:24] VITALS: BP 131/82
--- NOTE | 2019-04-23 13:48 | Discharge Summary ---
- NOTES TO OUTPATIENT PROVIDER Notes to Outpatient Provider: f/u with PCP in one week. f/u with Cardiology Dr. Gregory in 1-2 weeks. Please go for PT / INR in 2 days at [facility]. Medication changes: Changed your Metoprolol back to 25mg PO BID Orders not resulted at time of discharge: Pending orders 04/22/19 11:39 ECG 12 lead ECG [ECG] Stat Date of Encounter: 04/23/19 Time of Encounter: 13:42 - Discharge Diagnosis (1) Weakness Priority: Primary Status: Acute (2) CHF (congestive heart failure) Priority: Secondary Status: Chronic Qualifiers: Heart failure type: combined systolic and diastolic Heart failure chronicity: chronic Qualified Code(s): I50.42 - Chronic combined systolic (congestive) and diastolic (congestive) heart failure (3) Diabetes mellitus type 2 in obese Priority: Secondary Status: Chronic (4) Morbid obesity with BMI of 40.0-44.9, adult Priority: Secondary Status: Chronic (5) Afib Priority: Secondary Status: Chronic Qualifiers: Atrial fibrillation type: paroxysmal Qualified Code(s): I48.0 - Paroxysmal atrial fibrillation (6) COPD (chronic obstructive pulmonary disease) Priority: Secondary Status: Chronic Qualifiers: COPD type: unspecified COPD Qualified Code(s): J44.9 - Chronic obstructive pulmonary disease, unspecified (7) CAD (coronary artery disease) Priority: Secondary Status: Chronic Qualifiers: Coronary Disease-Associated Artery/Lesion type: [place] artery [place] vs. transplanted heart: [place] heart Associated angina: without angina Qualified Code(s): I25.10 - Atherosclerotic heart disease of [place] coronary artery without angina pectoris (8) HTN (hypertension) Priority: Secondary Status: Chronic Qualifiers: Hypertension type: essential hypertension Qualified Code(s): I10 - Essential (primary) hypertension (9) HLD (hyperlipidemia) Priority: Secondary Status: Chronic Qualifiers: Hyperlipidemia type: pure hypercholesterolemia Qualified Code(s): E78.00 - Pure hypercholesterolemia, unspecified; E78.0 - Pure hypercholesterolemia (10) DVT prophylaxis Priority: Secondary Status: Acute Hospital course: Ms. Strong is a 53 year old female with known past medical history of combined systolic and diastolic CHF, COPD, CVA, atrial fibrillation status post ablation on warfarin, TIA, diabetes, and migraine pt presented to ER with generalized weakness and lethargy. Recently her Metoprolol was increased to 50mg PO BID since her Afib was not well rate controlled. Pt did mention since she started taking Metoprolol 50mg BID, she has been more weak and lethargic. In the ER patient found to have severe hypotension. Patient was admitted in the hospital and held her blood pressure medication and started her on aggressive IV hydrat ion. Patient blood pressure well-controlled now. She denied anymore weakness/lethargy. She would like to go home today. Her ortho stat vitals are better too. So at this point will d.c her home in stable condition today with Metoprolol 25mg BID and recommend to fu with Cardiology as an out pt. - Time Spent with Patient Total time spent providing and/or coordinating discharge services: - Discharge Medications Prescriptions: Continued Fluticasone Propionate Nasal [Flonase] 2 spr NS QAM PRN PRN Reason: Allergy Symptoms Gabapentin 800 mg PO TID hydrOXYzine HCl [Hydroxyzine HCl] 25 mg PO TID Ipratropium/Albuterol Sulfate [Iprat-Albut 0.5-3(2.5) mg/3 ml] 3 ml IH Q4H PRN PRN Reason: Shortness Of Breath Meclizine HCl [Verticalm] 25 mg PO BID PRN PRN Reason: Vertigo Melatonin 20 mg PO HS Nitroglycerin 0.4 mg SL Q5M PRN PRN Reason: Chest Pain Propranolol [Inderal] 10 mg PO DAILY PRN PRN Reason: Anxiety Warfarin Sodium 4.5 mg PO TUTHSA Guanfacine HCl 3 mg PO HS Levalbuterol [Xopenex INH] 2 puff IH Q6H PRN PRN Reason: Shortness Of Breath Budesonide/Formoterol 160/4.5 [Symbicort 160/4.5] 2 puff IH BIDR OxyCODONE/APAP 5/325 [Percocet 5/325 MG] 1 tab PO Q8HR PRN PRN Reason: Pain Insulin ASPART [NovoLOG] 2 - 10 unit SQ BID Ondansetron ODT [Zofran ODT] 4 mg PO Q8H PRN PRN Reason: NAUSEA/VOMITING Rizatriptan Benzoate [Maxalt] 10 mg PO AD PRN PRN Reason: Migraine Headache cephALEXin [Keflex] 500 mg PO BID #4 capsule Lisinopril [Zestril] 5 mg PO DAILY #30 tablet clonazePAM [Klonopin] 0.5 mg PO PRN PRN PRN Reason: Anxiety Metoprolol Succinate [Toprol Xl] 25 mg PO BID #60 tab.er.24h Aspirin [Adult Aspirin Regimen] 81 mg PO DAILY Warfarin [Coumadin] 3 mg PO SUMOWEFR Buspirone HCl [Buspar] 30 mg PO BID Tizanidine HCl [Zanaflex] 2 mg PO HS FLUoxetine HCl [Fluoxetine HCl] 80 mg PO DAILY Atorvastatin [Lipitor] 40 mg PO HS Quetiapine Fumarate [Seroquel] 400 mg PO HS Pantoprazole Sodium [Protonix] 40 mg PO DAILY PRN PRN Reason: GERD Topiramate [Topamax] 50 mg PO BID PRN PRN Reason: Headache No Action Metoprolol Succinate [Toprol Xl] 25 mg PO BID Home Medications: Aspirin [Adult Aspirin Regimen] 81 mg PO DAILY 01/21/19 [History] Atorvastatin [Lipitor] 40 mg PO HS 01/21/19 [History] Buspirone HCl [Buspar] 30 mg PO BID 01/21/19 [History] FLUoxetine HCl [Fluoxetine HCl] 80 mg PO DAILY 01/21/19 [History] Pantoprazole Sodium [Protonix] 40 mg PO DAILY PRN 01/21/19 [History] Quetiapine Fumarate [Seroquel] 400 mg PO HS 01/21/19 [History] Tizanidine HCl [Zanaflex] 2 mg PO HS 01/21/19 [History] Topiramate [Topamax] 50 mg PO BID PRN 01/21/19 [History] Warfarin [Coumadin] 3 mg PO SUMOWEFR 01/21/19 [History] Fluticasone Propionate Nasal [Flonase] 2 spr NS QAM PRN 01/25/19 [History] Gabapentin 800 mg PO TID 01/25/19 [History] Guanfacine HCl 3 mg PO HS 01/25/19 [History] Ipratropium/Albuterol Sulfate [Iprat-Albut 0.5-3(2.5) mg/3 ml] 3 ml IH Q4H PRN 01/25/19 [History] Meclizine HCl [Verticalm] 25 mg PO BID PRN 01/25/19 [History] Melatonin 20 mg PO HS 01/25/19 [History] Nitroglycerin 0.4 mg SL Q5M PRN 01/25/19 [History] Propranolol [Inderal] 10 mg PO DAILY PRN 01/25/19 [History] Warfarin Sodium 4.5 mg PO TUTHSA 01/25/19 [History] hydrOXYzine HCl [Hydroxyzine HCl] 25 mg PO TID 01/25/19 [History] Budesonide/Formoterol 160/4.5 [Symbicort 160/4.5] 2 puff IH BIDR 02/08/19 [History] Levalbuterol [Xopenex INH] 2 puff IH Q6H PRN 02/08/19 [History] OxyCODONE/APAP 5/325 [Percocet 5/325 MG] 1 tab PO Q8HR PRN 02/08/19 [History] Insulin ASPART [NovoLOG] 2 - 10 unit SQ BID 03/18/19 [History] Ondansetron ODT [Zofran ODT] 4 mg PO Q8H PRN 03/18/19 [History] Rizatriptan Benzoate [Maxalt] 10 mg PO AD PRN 03/18/19 [History] Lisinopril [Zestril] 5 mg PO DAILY #30 tablet 03/19/19 [Rx] cephALEXin [Keflex] 500 mg PO BID #4 capsule 03/19/19 [Rx] clonazePAM [Klonopin] 0.5 mg PO PRN PRN 04/22/19 [History] Metoprolol Succinate [Toprol Xl] 25 mg PO BID #60 tab.er.24h 04/23/19 [Rx] Allergies/Adverse Reactions: Allergy/AdvReac Type Severity Reaction Status Date / Time baclofen Allergy Itching Verified 03/17/19 02:51 ciprofloxacin [From Cipro] Allergy Hives Verified 03/17/19 02:51 doxycycline Allergy Hives Verified 03/17/19 02:51 latex Allergy Rash Verified 03/17/19 02:51 Penicillins Allergy Hives Verified 03/17/19 02:51 prednisone Allergy Itching Verified 03/17/19 02:51 Sulfa (Sulfonamide Allergy Hives Verified 03/17/19 02:51 Antibiotics) sulfamethoxazole Allergy Hives Verified 03/17/19 02:51 [From Bactrim] trimethoprim [From Bactrim] Allergy Hives Verified 03/17/19 02:51 cefdinir AdvReac Vomiting Verified 03/17/19 02:51 Date of admission: 04/22/19 18:35 Primary care physician: Maurisio Ward MD - Constitutional Vitals: Temp Pulse Resp BP Pulse Ox 98.0 F 90 16 131/82 94 04/23/19 11:31 04/23/19 12:19 04/23/19 11:31 04/23/19 12:19 04/23/19 11:31 General appearance: Present: A&O X 3, no acute distress, answers questions appropriately Exam: Gen: Alert, awake, Oriented to time,place and person Chest: Diminished breath sounds B/L, No wheezing, No crackles, No rales Heart: S1S2+ RRR No murmurs Abd: Soft, NT, BS +, No organomegaly Ext: No edema, pulses are palpable, No calf tenderness Neuro : No acute focal neuro deficits noticed Skin: No rash. - Patient Status Disposition: Home, Self-Care Condition: Good Overall status at discharge: patient is back to baseline - Discharge Instructions Follow Up With: Maurisio Ward MD [Primary Care Provider] - (Appointment has been requested.) Humble Gregory DO [Partnered Physician] - - Diet and Activity Activity: increase activity as tolerated Diet: low salt diet
[2019-04-23] MEDS ORDERED: *HR* Warfarin 3 MG TABLET PO ONE (18:00)
--- NOTE | 2019-04-24 16:23 | Electrocardiograph Report ---
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
--- NOTE | 2019-04-24 23:25 | Electrocardiograph Report ---
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
== END 2019-04-23 15:45 | disposition home or self-care (01) ==
LOC: EMEROOARM 11:01 → 3BNU 11:01 → SUATTDRO 18:35 → 3BNU 20:04
PROVIDERS: ADMIT Internal Medicine; ATTEND Family Medicine

== ENCOUNTER 2019-07-13 11:39 | Observation (INO) ==
[2019-07-13] MEDS ORDERED: Aspirin 81 MG TAB.CHEW PO ONE (12:15)
[2019-07-13 12:59] LABS: Basophils # 0.1 K/mcL (0.0-0.2); Basophils % 0.7 %; Eosinophils # 0.3 K/mcL (0.0-0.6); Eosinophils % 3.1 %; Hematocrit 41.4 % (35.3-44.9); Hemoglobin 13.2 g/dL (11.5-15.4); Immature Granulocytes % 0.9 % (0-4); Lymphocytes # 1.9 K/mcL (0.6-4.6); Lymphocytes % 21.7 %; Mean Corpuscular HGB Conc 31.9 g/dL (31.6-35.5); Mean Corpuscular Hemoglobin 26.9 pg (28.0-33.3); Mean Corpuscular Volume 84.5 fL (83.0-100.0); Mean Platelet Volume 10.2 fL (9.4-12.4); Monocytes # 0.4 K/mcL (0.0-1.3); Monocytes % 4.5 %; Neutrophils # 5.9 K/mcL (1.6-8.9); Platelet Count 211 K/mcL (140-400); Red Cell Distribution Width 17.2 % (11.5-14.5); Segmented Neutrophils % 69.1 %; White Blood Count 8.6 K/mcL (4.3-11.1)
[2019-07-13 12:59] LABS: Bilirubin,Urine Negative (Negative); Blood,Urine Negative (Negative); Clarity,Urine Clear (Clear); Color,Urine Yellow (Yellow); Glucose,Urine (UA) Normal (Normal); Ketones,Urine Negative (Negative); Leukocyte Esterase,Urine Negative (Negative); Nitrite,Urine Negative (Negative); Protein,Urine Negative (Neg-Trace); Specific Gravity,Urine 1.008 (1.010-1.025); Urobilinogen,Urine Normal (Normal)
[2019-07-13] MEDS ORDERED: Nitroglycerin 0.4 MG TAB.SUBL SL ONE (13:05)
[2019-07-13] MEDS: Nitroglycerin 0.4 MG TAB.SUBL SL SCH ×3 (13:06→17:35)
[2019-07-13 13:07] LABS: Prothrombin Time 23.3 Seconds (9.4-12.1)
[2019-07-13 13:20] LABS: BUN/Creatinine Ratio 10 (6-26); Blood Urea Nitrogen 7 mg/dL (6-20); Calcium 8.9 mg/dL (8.6-10.3); Carbon Dioxide 25 mEq/L (23-29); Chloride 109 mEq/L (98-107); Glucose 134 mg/dL (70-105); Osmolality,Calculated 290 (280-300); Potassium 4.1 mEq/L (3.5-5.1); Sodium 140 mEq/L (136-145); Troponin I < 0.03 ng/mL (< 0.04); eGFR For African Americans > 60 (> 60); eGFR For Non-African Americans > 60 (> 60)
[2019-07-13] MEDS ORDERED: *HR* FentaNYL (PF) 100 MCG/2 ML VIAL IVP ONE (13:28)
[2019-07-13] MEDS ORDERED: 0.9 % Sodium Chloride 1,000 ML IVC ONE (13:28)
[2019-07-13] MEDS ORDERED: Ondansetron 4 MG/2 ML VIAL IVP ONE (13:28)
[2019-07-13] MEDS ORDERED: Naloxone 0.4 MG/ML INJ IVP PRN (16:05)
[2019-07-13] MEDS ORDERED: Dextrose Gel 15 GM/37.5 ML TUBE PO PRN ×2 (16:11)
[2019-07-13] MEDS ORDERED: D5% in Water 1,000 ML IVC PRN (16:11)
[2019-07-13] MEDS ORDERED: *HR* Dextrose 50 % in Water (Syg) 50 ML SYRINGE IVP PRN (16:11)
[2019-07-13] MEDS ORDERED: Ipratropium/Albuterol Neb 3 ML IH PRN (16:46)
[2019-07-13] MEDS ORDERED: Nitroglycerin 1 INCH/GM PACKET TP ONE (16:53)
[2019-07-13] MEDS: Insulin LISPRO 300 UNITS/3 ML VIAL SQ SCH ×2 (17:35→22:02)
[2019-07-13] MEDS ORDERED: *HR* Warfarin 3 MG TABLET PO ONE (18:00)
[2019-07-13] MEDS ORDERED: Warfarin perPT PO PRN (18:00)
[2019-07-13] MEDS: Ipratropium/Albuterol Neb 3 ML IH SCH ×2 (19:49→23:43)
[2019-07-13] MEDS: Insulin DETEMIR 100 UNIT/ML X5UNITS SQ SCH (22:02)
[2019-07-13] MEDS: Melatonin 3 MG TABLET PO SCH (22:05)
[2019-07-13] MEDS: Metoprolol XL (24 HR) Succ 25 MG TAB.ER.24H PO SCH (22:05)
[2019-07-14 01:00] LABS: BUN/Creatinine Ratio 12 (6-26); Blood Urea Nitrogen 10 mg/dL (6-20); Calcium 7.9 mg/dL (8.6-10.3); Carbon Dioxide 25 mEq/L (23-29); Chloride 109 mEq/L (98-107); Chol/HDL Ratio 5.8 (0-4.9); Cholesterol 163 mg/dL (< 200); Glucose 210 mg/dL (70-105); HDL Cholesterol 28 mg/dL (40-59); LDL Cholesterol,Calculated 81 mg/dL (0-99); Magnesium 1.7 mg/dL (1.6-2.6); Osmolality,Calculated 287 (280-300); Potassium 3.7 mEq/L (3.5-5.1); Sodium 136 mEq/L (136-145); Triglycerides 272 mg/dL (< 150); eGFR For African Americans > 60 (> 60); eGFR For Non-African Americans > 60 (> 60)
[2019-07-14 01:13] LABS: INR 2.1; Prothrombin Time 23.4 Seconds (9.4-12.1)
[2019-07-14 01:18] LABS: Basophils # 0.1 K/mcL (0.0-0.2); Basophils % 0.7 %; Eosinophils # 0.2 K/mcL (0.0-0.6); Eosinophils % 2.6 %; Hematocrit 33.6 % (35.3-44.9); Immature Granulocytes % 0.7 % (0-4); Lymphocytes % 28.2 %; Mean Corpuscular HGB Conc 31.8 g/dL (31.6-35.5); Mean Corpuscular Volume 84.8 fL (83.0-100.0); Mean Platelet Volume 10.4 fL (9.4-12.4); Monocytes # 0.5 K/mcL (0.0-1.3); Monocytes % 7.1 %; Neutrophils # 4.4 K/mcL (1.6-8.9); Platelet Count 187 K/mcL (140-400); Red Blood Count 3.96 M/mcL (3.82-4.97); Red Cell Distribution Width 17.2 % (11.5-14.5); Segmented Neutrophils % 60.7 %; White Blood Count 7.2 K/mcL (4.3-11.1)
[2019-07-14 01:36] LABS: Hemoglobin 10.7 g/dL (11.5-15.4)
[2019-07-14] MEDS: Ipratropium/Albuterol Neb 3 ML IH SCH ×5 (04:26→20:13)
[2019-07-14] MEDS: Insulin LISPRO 300 UNITS/3 ML VIAL SQ SCH ×4 (07:42→20:20)
[2019-07-14] MEDS ORDERED: clonazePAM 0.5 MG TABLET PO PRN ×2 (12:12→19:01)
[2019-07-14] MEDS: Metoprolol XL (24 HR) Succ 25 MG TAB.ER.24H PO SCH ×2 (13:48→20:26)
[2019-07-14] MEDS: Aspirin Enteric Coated 81 MG Tablet PO SCH (13:48)
[2019-07-14] MEDS ORDERED: Nitroglycerin 0.4 MG TAB.SUBL SL ONE (16:42)
[2019-07-14] MEDS: Nitroglycerin 0.4 MG TAB.SUBL SL PRN ×2 (17:05→18:03)
[2019-07-14] MEDS ORDERED: *HR* Warfarin 3 MG TABLET PO ONE (18:00)
[2019-07-14] MEDS: Acetaminophen 325 MG TABLET PO PRN (18:02)
[2019-07-14] MEDS: Insulin DETEMIR 100 UNIT/ML X5UNITS SQ SCH (20:23)
[2019-07-14] MEDS: Melatonin 3 MG TABLET PO SCH (20:26)
[2019-07-14] MEDS: risperiDONE 1 MG TABLET PO SCH (20:27)
[2019-07-14] MEDS: Nicotine 7 MG PATCH.TD24 TD SCH (20:30)
[2019-07-14] MEDS ORDERED: Gabapentin 400 MG CAPSULE PO ONE (20:55)
[2019-07-14] MEDS ORDERED: Insulin NPH/REG 70/30 100 UNIT/ML (x5UNIT) SQ SCH (21:00)
[2019-07-14] MEDS ORDERED: NON-FORMULARY MEDICATION 1 EACH EACH (Quetiapine Fumarate 400 MG) PO SCH (21:00)
[2019-07-15] MEDS: Ipratropium/Albuterol Neb 3 ML IH SCH ×7 (00:02→23:30)
[2019-07-15 05:51] LABS: Basophils % 0.5 %; Eosinophils # 0.2 K/mcL (0.0-0.6); Eosinophils % 2.7 %; Hematocrit 35.7 % (35.3-44.9); Hemoglobin 11.3 g/dL (11.5-15.4); Immature Granulocytes % 0.6 % (0-4); Lymphocytes # 1.9 K/mcL (0.6-4.6); Lymphocytes % 23.4 %; Mean Corpuscular HGB Conc 31.7 g/dL (31.6-35.5); Mean Corpuscular Hemoglobin 26.9 pg (28.0-33.3); Mean Platelet Volume 10.6 fL (9.4-12.4); Monocytes # 0.5 K/mcL (0.0-1.3); Monocytes % 6.3 %; Neutrophils # 5.3 K/mcL (1.6-8.9); Platelet Count 202 K/mcL (140-400); Red Cell Distribution Width 17.4 % (11.5-14.5); Segmented Neutrophils % 66.5 %; White Blood Count 7.9 K/mcL (4.3-11.1)
[2019-07-15 05:58] LABS: INR 1.8; Prothrombin Time 20.8 Seconds (9.4-12.1)
[2019-07-15 06:11] LABS: BUN/Creatinine Ratio 14 (6-26); Blood Urea Nitrogen 10 mg/dL (6-20); Carbon Dioxide 26 mEq/L (23-29); Chloride 106 mEq/L (98-107); Glucose 151 mg/dL (70-105); Osmolality,Calculated 290 (280-300); Sodium 139 mEq/L (136-145); eGFR For African Americans > 60 (> 60); eGFR For Non-African Americans > 60 (> 60)
[2019-07-15] MEDS: Nicotine 7 MG PATCH.TD24 TD SCH (08:16)
[2019-07-15] MEDS: Metoprolol XL (24 HR) Succ 25 MG TAB.ER.24H PO SCH ×2 (08:16→21:11)
[2019-07-15] MEDS: Insulin LISPRO 300 UNITS/3 ML VIAL SQ SCH ×4 (08:17→21:09)
[2019-07-15] MEDS: hydrOXYzine pamoate 25 MG CAPSULE PO PRN ×2 (08:17→23:11)
[2019-07-15] MEDS: Aspirin Enteric Coated 81 MG Tablet PO SCH (08:17)
[2019-07-15] MEDS: FLUoxetine 20 MG CAPSULE PO SCH (08:17)
[2019-07-15] MEDS ORDERED: Perflutren Lipid Microsphere 1.3 ML in 0.9 % Sodium Chloride 8.7 ML IVP ONE (09:35)
[2019-07-15] MEDS ORDERED: Ondansetron ODT 4 MG TAB.RAPDIS SL PRN (11:29)
[2019-07-15] MEDS: risperiDONE 1 MG TABLET PO SCH (21:09)
[2019-07-15] MEDS: Insulin DETEMIR 100 UNIT/ML X5UNITS SQ SCH (21:09)
[2019-07-15] MEDS: Melatonin 3 MG TABLET PO SCH (21:10)
[2019-07-16] MEDS ORDERED: Gabapentin 400 MG CAPSULE PO ONE (00:18)
[2019-07-16] MEDS: Ipratropium/Albuterol Neb 3 ML IH SCH ×4 (03:42→15:09)
[2019-07-16 05:35] LABS: INR 1.5; Prothrombin Time 16.7 Seconds (9.4-12.1)
[2019-07-16] MEDS: Insulin LISPRO 300 UNITS/3 ML VIAL SQ SCH ×2 (09:45→12:04)
[2019-07-16] MEDS: Nicotine 7 MG PATCH.TD24 TD SCH (09:48)
[2019-07-16] MEDS: FLUoxetine 20 MG CAPSULE PO SCH (09:51)
[2019-07-16] MEDS: Acetaminophen 325 MG TABLET PO PRN (09:51)
[2019-07-16] MEDS: Metoprolol XL (24 HR) Succ 25 MG TAB.ER.24H PO SCH (09:51)
[2019-07-16] MEDS: Aspirin Enteric Coated 81 MG Tablet PO SCH (09:51)
[2019-07-16] MEDS ORDERED: Heparin 1,000 UNITS/500 mL 500 ML ONE (13:28)
[2019-07-16] MEDS ORDERED: ISOVUE-370 200 ML INFUS..BTL ONE ×2 (13:28→13:39)
[2019-07-16] MEDS ORDERED: *HR* Heparin 10,000 UNIT/10 ML VIAL ONE (13:28)
[2019-07-16] MEDS ORDERED: *HR* FentaNYL (PF) 100 MCG/2 ML VIAL ONE (13:28)
[2019-07-16] MEDS ORDERED: *HR* Midazolam HCl 2 MG/2 ML VIAL ONE ×2 (13:28→14:07)
[2019-07-16] MEDS ORDERED: 0.9 % Sodium Chloride 2,000 ML ONE (13:28)
[2019-07-16] MEDS ORDERED: Nitroglycerin 1,000 MCG/10 ML VIAL IV ONE (13:29)
[2019-07-16] MEDS ORDERED: Verapamil 5 MG/2 ML VIAL ONE (13:30)
[2019-07-16 16:48] VITALS: BP 116/75
== END 2019-07-16 17:32 | disposition home or self-care (01) ==
LOC: EMEROOARM 11:39 → 3BNU 11:39 → SUATTDRO 15:46 → 3BNU 16:22
PROVIDERS: ADMIT Internal Medicine; ATTEND Internal Medicine

== ENCOUNTER 2019-08-02 13:45 | Observation (INO) ==
[2019-08-02 15:11] LABS: Basophils # 0.1 K/mcL (0.0-0.2); Basophils % 0.5 %; Eosinophils # 0.3 K/mcL (0.0-0.6); Eosinophils % 2.8 %; Hematocrit 38.5 % (35.3-44.9); Hemoglobin 12.4 g/dL (11.5-15.4); Immature Granulocytes % 0.5 % (0-4); Lymphocytes # 2.2 K/mcL (0.6-4.6); Lymphocytes % 22.1 %; Mean Corpuscular HGB Conc 32.2 g/dL (31.6-35.5); Mean Corpuscular Hemoglobin 27.5 pg (28.0-33.3); Mean Corpuscular Volume 85.4 fL (83.0-100.0); Mean Platelet Volume 10.2 fL (9.4-12.4); Monocytes # 0.6 K/mcL (0.0-1.3); Neutrophils # 6.6 K/mcL (1.6-8.9); Platelet Count 253 K/mcL (140-400); Red Blood Count 4.51 M/mcL (3.82-4.97); Red Cell Distribution Width 16.6 % (11.5-14.5); Segmented Neutrophils % 68.1 %; White Blood Count 9.7 K/mcL (4.3-11.1)
[2019-08-02] MEDS ORDERED: 0.9 % Sodium Chloride 1,000 ML IVC ONE (15:22)
[2019-08-02 15:43] LABS: Bilirubin,Urine Negative (Negative); Blood,Urine Negative (Negative); Clarity,Urine Clear (Clear); Color,Urine Yellow (Yellow); Glucose,Urine (UA) 250 mg/dL (Normal); Ketones,Urine Negative (Negative); Leukocyte Esterase,Urine Negative (Negative); Nitrite,Urine Negative (Negative); Protein,Urine Negative (Neg-Trace); Specific Gravity,Urine 1.014 (1.010-1.025); Urobilinogen,Urine Normal (Normal)
[2019-08-02 15:46] LABS: Alanine Aminotransferase 59 Units/L (7-52); Albumin 3.9 g/dL (3.5-5.7); Albumin/Globulin Ratio 1.5 (1.1-2.2); Alkaline Phosphatase 129 Units/L (34-104); Aspartate Amino Transferase 80 Units/L (13-39); BUN/Creatinine Ratio 15 (6-26); Bilirubin,Total 0.3 mg/dL (0.3-1.0); Blood Urea Nitrogen 11 mg/dL (6-20); Calcium 8.6 mg/dL (8.6-10.3); Carbon Dioxide 23 mEq/L (23-29); Chloride 109 mEq/L (98-107); Globulin 2.6 g/dL (2.4-3.5); Glucose 157 mg/dL (70-105); Osmolality,Calculated 291 (280-300); Sodium 139 mEq/L (136-145); Thyroid Stimulating Hormone 2.034 mcIU/mL (0.340-5.600); Total Protein 6.5 g/dL (6.4-8.9); Troponin I < 0.03 ng/mL (< 0.04); eGFR For African Americans > 60 (> 60); eGFR For Non-African Americans > 60 (> 60)
[2019-08-02] MEDS ORDERED: Isovue-370 500 ML BOTTLE IVP ONE (17:29)
[2019-08-02] MEDS ORDERED: Naloxone 0.4 MG/ML INJ IVP PRN (21:54)
[2019-08-02] MEDS ORDERED: Acetaminophen 325 MG TABLET PO PRN (21:54)
[2019-08-02] MEDS ORDERED: Ondansetron 4 MG/2 ML VIAL IVP PRN (21:54)
[2019-08-02] MEDS ORDERED: Dextrose Gel 15 GM/37.5 ML TUBE PO PRN ×2 (21:57)
[2019-08-02] MEDS ORDERED: *HR* Dextrose 50 % in Water (Syg) 50 ML SYRINGE IVP PRN (21:57)
[2019-08-02] MEDS ORDERED: D5% in Water 1,000 ML IVC PRN (21:57)
[2019-08-02] MEDS ORDERED: 0.9 % Sodium Chloride 1,000 ML IVC SCH (22:00)
[2019-08-02 22:42] LABS: Estimated Average Glucose 220 mg/dl
[2019-08-02] MEDS: Insulin LISPRO 300 UNITS/3 ML VIAL SQ SCH (22:56)
[2019-08-03 02:22] LABS: Hematocrit 35.3 % (35.3-44.9); Hemoglobin 11.7 g/dL (11.5-15.4); Mean Corpuscular HGB Conc 33.1 g/dL (31.6-35.5); Mean Corpuscular Hemoglobin 27.6 pg (28.0-33.3); Mean Corpuscular Volume 83.3 fL (83.0-100.0); Mean Platelet Volume 10.4 fL (9.4-12.4); Platelet Count 245 K/mcL (140-400); Red Blood Count 4.24 M/mcL (3.82-4.97); Red Cell Distribution Width 16.9 % (11.5-14.5); White Blood Count 7.8 K/mcL (4.3-11.1)
[2019-08-03 02:41] LABS: Blood Urea Nitrogen 11 mg/dL (6-20); Carbon Dioxide 25 mEq/L (23-29); Chloride 106 mEq/L (98-107); Potassium 3.9 mEq/L (3.5-5.1); Sodium 139 mEq/L (136-145)
[2019-08-03 02:42] LABS: BUN/Creatinine Ratio 15 (6-26); Calcium 8.6 mg/dL (8.6-10.3); Glucose 203 mg/dL (70-105); Osmolality,Calculated 293 (280-300); eGFR For African Americans > 60 (> 60); eGFR For Non-African Americans > 60 (> 60)
[2019-08-03 02:49] LABS: INR 1.8; Prothrombin Time 19.9 Seconds (9.4-12.1)
[2019-08-03 02:52] LABS: Activated Partial Thrombo Time 45.6 Seconds (26.0-36.0)
[2019-08-03] MEDS: Insulin LISPRO 300 UNITS/3 ML VIAL SQ SCH (07:56)
[2019-08-03 11:22] VITALS: BP 142/78
[2019-08-03] MEDS ORDERED: Warfarin perPT PO PRN (18:00)
[2019-08-04] MEDS ORDERED: Fluticasone Propionate Nasal 50 MCG/SPRAY BOTTLE NS SCH (09:00)
== END 2019-08-03 13:06 | disposition home or self-care (01) ==
LOC: 3BNU 13:45 → EMEROOARM 13:45 → 3BNU 20:58
PROVIDERS: ADMIT Internal Medicine; ATTEND Internal Medicine

== ENCOUNTER 2019-09-09 10:18 | Observation (INO) ==
[2019-09-09] MEDS ORDERED: *HR* OxyCODONE/APAP 5/325 TABLET PO ONE ×2 (10:36→12:55)
[2019-09-09 11:10] LABS: BUN/Creatinine Ratio 13 (6-26); Basophils % 0.6 %; Blood Urea Nitrogen 10 mg/dL (6-20); Calcium 8.9 mg/dL (8.6-10.3); Carbon Dioxide 24 mEq/L (23-29); Chloride 105 mEq/L (98-107); Eosinophils # 0.2 K/mcL (0.0-0.6); Eosinophils % 2.8 %; Glucose 244 mg/dL (70-105); Hematocrit 36.7 % (35.3-44.9); Hemoglobin 11.9 g/dL (11.5-15.4); Immature Granulocytes % 0.9 % (0-4); Lymphocytes % 28.8 %; Mean Corpuscular HGB Conc 32.4 g/dL (31.6-35.5); Mean Corpuscular Hemoglobin 27.3 pg (28.0-33.3); Mean Corpuscular Volume 84.2 fL (83.0-100.0); Mean Platelet Volume 10.3 fL (9.4-12.4); Monocytes # 0.3 K/mcL (0.0-1.3); Monocytes % 4.9 %; Neutrophils # 4.3 K/mcL (1.6-8.9); Osmolality,Calculated 293 (280-300); Platelet Count 279 K/mcL (140-400); Red Blood Count 4.36 M/mcL (3.82-4.97); Red Cell Distribution Width 15.3 % (11.5-14.5); Sodium 138 mEq/L (136-145); White Blood Count 6.9 K/mcL (4.3-11.1); eGFR For African Americans > 60 (> 60); eGFR For Non-African Americans > 60 (> 60)
[2019-09-09] MEDS ORDERED: Ondansetron 4 MG/2 ML VIAL IVP PRN (12:15)
[2019-09-09] MEDS ORDERED: Acetaminophen 325 MG TABLET PO PRN (12:15)
[2019-09-09] MEDS ORDERED: Naloxone 0.4 MG/ML INJ IVP PRN (12:15)
[2019-09-09] MEDS ORDERED: Dextrose Gel 15 GM/37.5 ML TUBE PO PRN ×2 (12:20)
[2019-09-09] MEDS ORDERED: *HR* Dextrose 50 % in Water (Syg) 50 ML SYRINGE IVP PRN (12:20)
[2019-09-09] MEDS ORDERED: D5% in Water 1,000 ML IVC PRN (12:20)
[2019-09-09] MEDS ORDERED: 0.9 % Sodium Chloride 1,000 ML IV ONE (12:28)
[2019-09-09 14:41] LABS: INR 1.9; Prothrombin Time 21.8 Seconds (9.4-12.1)
[2019-09-09] MEDS: *HR* OxyCODONE/APAP 5/325 TABLET PO PRN ×2 (16:17→22:44)
[2019-09-09] MEDS: Insulin LISPRO 300 UNITS/3 ML VIAL SQ SCH (18:31)
[2019-09-09] MEDS ORDERED: Insulin DETEMIR 100 UNIT/ML X5UNITS SQ SCH (21:00)
[2019-09-09] MEDS: Nicotine 21 MG PATCH.TD24 TD SCH (21:11)
[2019-09-09] MEDS ORDERED: NON-FORMULARY MEDICATION 1 EACH EACH (Quetiapine Fumarate 400 MG) PO SCH (23:17)
[2019-09-09] MEDS: Gabapentin 400 MG CAPSULE PO SCH (23:40)
[2019-09-09] MEDS: hydrOXYzine pamoate 25 MG CAPSULE PO SCH (23:40)
[2019-09-10 01:25] LABS: Basophils # 0.1 K/mcL (0.0-0.2); Basophils % 0.7 %; Eosinophils # 0.2 K/mcL (0.0-0.6); Eosinophils % 2.4 %; Hematocrit 34.2 % (35.3-44.9); Hemoglobin 10.7 g/dL (11.5-15.4); Immature Granulocytes % 0.9 % (0-4); Lymphocytes # 2.9 K/mcL (0.6-4.6); Mean Corpuscular HGB Conc 31.3 g/dL (31.6-35.5); Mean Corpuscular Hemoglobin 27.2 pg (28.0-33.3); Mean Corpuscular Volume 86.8 fL (83.0-100.0); Monocytes # 0.6 K/mcL (0.0-1.3); Monocytes % 7.2 %; Neutrophils # 4.4 K/mcL (1.6-8.9); Platelet Count 239 K/mcL (140-400); Red Blood Count 3.94 M/mcL (3.82-4.97); Red Cell Distribution Width 15.1 % (11.5-14.5); Segmented Neutrophils % 53.8 %; White Blood Count 8.2 K/mcL (4.3-11.1)
[2019-09-10 01:33] LABS: INR 1.8; Prothrombin Time 20.2 Seconds (9.4-12.1)
[2019-09-10 01:44] LABS: BUN/Creatinine Ratio 14 (6-26); Blood Urea Nitrogen 11 mg/dL (6-20); Calcium 8.3 mg/dL (8.6-10.3); Carbon Dioxide 24 mEq/L (23-29); Chloride 104 mEq/L (98-107); Glucose 148 mg/dL (70-105); Osmolality,Calculated 284 (280-300); Potassium 4.1 mEq/L (3.5-5.1); Sodium 136 mEq/L (136-145); eGFR For African Americans > 60 (> 60); eGFR For Non-African Americans > 60 (> 60)
[2019-09-10] MEDS: Gabapentin 400 MG CAPSULE PO SCH ×2 (08:11→15:37)
[2019-09-10] MEDS: hydrOXYzine pamoate 25 MG CAPSULE PO SCH ×2 (08:12→15:37)
[2019-09-10] MEDS: Insulin LISPRO 300 UNITS/3 ML VIAL SQ SCH ×3 (08:12→18:40)
[2019-09-10] MEDS: Nicotine 21 MG PATCH.TD24 TD SCH (08:12)
[2019-09-10] MEDS: *HR* OxyCODONE/APAP 5/325 TABLET PO PRN ×2 (08:21→18:55)
[2019-09-10] MEDS ORDERED: clonazePAM 0.5 MG TABLET PO PRN (11:19)
[2019-09-10 18:48] VITALS: BP 159/80
[2019-09-10] MEDS ORDERED: Aminoglycoside Consult 1 EACH MC ONE (19:34)
[2019-09-10] MEDS ORDERED: Metoprolol XL (24 HR) Succ 25 MG TAB.ER.24H PO SCH (21:00)
[2019-09-10] MEDS ORDERED: risperiDONE 1 MG TABLET PO SCH (21:00)
[2019-09-10] MEDS ORDERED: Melatonin 3 MG TABLET PO SCH (21:00)
[2019-09-11] MEDS ORDERED: Metoprolol XL (24 HR) Succ 25 MG TAB.ER.24H PO SCH (09:00)
[2019-09-11] MEDS ORDERED: FLUoxetine 20 MG CAPSULE PO SCH (09:00)
[2019-09-11] MEDS ORDERED: Topiramate 25 MG TABLET PO SCH (09:00)
[2019-09-11] MEDS ORDERED: Fluticasone Propionate Nasal 50 MCG/SPRAY BOTTLE NS SCH (09:00)
[2019-09-11] MEDS ORDERED: Aspirin Enteric Coated 81 MG Tablet PO SCH (09:00)
== END 2019-09-10 19:35 | disposition home or self-care (01) ==
LOC: EMEROOARM 10:18 → 3NENU 10:18 → SUATTDRO 12:00 → 3NENU 13:11
PROVIDERS: ADMIT Internal Medicine; ATTEND Internal Medicine

== ENCOUNTER 2019-09-15 17:19 | Inpatient (IN) ==
[2019-09-15] MEDS ORDERED: *HR* OxyCODONE/APAP 5/325 TABLET PO ONE (17:36)
[2019-09-15] MEDS ORDERED: Ondansetron ODT 4 MG TAB.RAPDIS SL ONE (17:36)
[2019-09-15 18:13] LABS: Basophils # 0.1 K/mcL (0.0-0.2); Basophils % 0.5 %; Eosinophils # 0.2 K/mcL (0.0-0.6); Eosinophils % 2.5 %; Hematocrit 36.4 % (35.3-44.9); Hemoglobin 11.8 g/dL (11.5-15.4); Lymphocytes # 2.6 K/mcL (0.6-4.6); Lymphocytes % 27.1 %; Mean Corpuscular HGB Conc 32.4 g/dL (31.6-35.5); Mean Corpuscular Volume 83.3 fL (83.0-100.0); Mean Platelet Volume 10.4 fL (9.4-12.4); Monocytes # 0.6 K/mcL (0.0-1.3); Monocytes % 6.5 %; Platelet Count 285 K/mcL (140-400); Red Blood Count 4.37 M/mcL (3.82-4.97); Red Cell Distribution Width 14.8 % (11.5-14.5); Segmented Neutrophils % 62.4 %; White Blood Count 9.6 K/mcL (4.3-11.1)
[2019-09-15 18:34] LABS: Alanine Aminotransferase 43 Units/L (7-52); Albumin/Globulin Ratio 1.3 (1.1-2.2); Alkaline Phosphatase 121 Units/L (34-104); Aspartate Amino Transferase 37 Units/L (13-39); BUN/Creatinine Ratio 14 (6-26); Bilirubin,Total 0.3 mg/dL (0.3-1.0); Blood Urea Nitrogen 11 mg/dL (6-20); Calcium 9.3 mg/dL (8.6-10.3); Carbon Dioxide 25 mEq/L (23-29); Chloride 103 mEq/L (98-107); Globulin 3.1 g/dL (2.4-3.5); Glucose 139 mg/dL (70-105); Osmolality,Calculated 288 (280-300); Sodium 138 mEq/L (136-145); Total Protein 7.1 g/dL (6.4-8.9); eGFR For African Americans > 60 (> 60); eGFR For Non-African Americans > 60 (> 60)
[2019-09-15] MEDS ORDERED: Isovue-370 500 ML BOTTLE IVP ONE (19:40)
[2019-09-15] MEDS ORDERED: (Rizatriptan Benzoate [Maxalt] 10 MG) PO PRN (20:57)
[2019-09-15] MEDS ORDERED: Dextrose Gel 15 GM/37.5 ML TUBE PO PRN ×2 (21:37)
[2019-09-15] MEDS ORDERED: *HR* Dextrose 50 % in Water (Syg) 50 ML SYRINGE IVP PRN (21:37)
[2019-09-15] MEDS ORDERED: Nitroglycerin 0.4 MG TAB.SUBL SL PRN (22:13)
[2019-09-15] MEDS ORDERED: Ipratropium/Albuterol Neb 3 ML IH PRN (22:13)
[2019-09-15] MEDS ORDERED: hydrOXYzine pamoate 25 MG CAPSULE PO PRN (22:21)
[2019-09-15] MEDS ORDERED: Acetaminophen 325 MG TABLET PO PRN (22:24)
[2019-09-15] MEDS ORDERED: Ketorolac 30 MG/ML VIAL IVP PRN (22:24)
[2019-09-15] MEDS ORDERED: Insulin DETEMIR 100 UNIT/ML X5UNITS SQ ONE (22:30)
[2019-09-15] MEDS: Melatonin 3 MG TABLET PO SCH (22:52)
[2019-09-15] MEDS: *HR* OxyCODONE Immed Rel 5 MG TABLET PO PRN (22:52)
[2019-09-15] MEDS: Metoprolol XL (24 HR) Succ 25 MG TAB.ER.24H PO SCH (22:53)
[2019-09-15] MEDS: Gabapentin 400 MG CAPSULE PO SCH (22:53)
[2019-09-16] MEDS: Cefepime HCl 1,000 MG in 0.9 % Sodium Chloride Mini Bag 100 ML IVPB SCH ×2 (05:09→18:09)
[2019-09-16 06:27] LABS: INR 1.7; Prothrombin Time 19.4 Seconds (9.4-12.1)
[2019-09-16 06:29] LABS: Activated Partial Thrombo Time 43.8 Seconds (26.0-36.0)
[2019-09-16] MEDS ORDERED: Vancomycin 1,750 MG in 0.9 % Sodium Chloride 250 ML IVPB SCH (09:00)
[2019-09-16] MEDS: FLUoxetine 20 MG CAPSULE PO SCH (09:28)
[2019-09-16] MEDS: Gabapentin 400 MG CAPSULE PO SCH ×3 (09:29→20:40)
[2019-09-16] MEDS: Aspirin Enteric Coated 81 MG Tablet PO SCH (09:29)
[2019-09-16] MEDS: Topiramate 25 MG TABLET PO SCH (09:29)
[2019-09-16] MEDS: Multivit/Ca/Min/Fe/FA 1 TAB TABLET PO SCH (09:29)
[2019-09-16] MEDS: Insulin LISPRO 300 UNITS/3 ML VIAL SQ SCH ×4 (09:30→20:53)
[2019-09-16] MEDS: Fluticasone Propionate Nasal 50 MCG/SPRAY BOTTLE NS SCH (09:30)
[2019-09-16] MEDS: *HR* OxyCODONE Immed Rel 5 MG TABLET PO PRN ×2 (13:34→20:53)
[2019-09-16] MEDS: clonazePAM 0.5 MG TABLET PO PRN (16:33)
[2019-09-16] MEDS ORDERED: *HR* Warfarin 5 MG TABLET PO ONE (18:00)
[2019-09-16] MEDS ORDERED: Warfarin perPT PO PRN (18:00)
[2019-09-16] MEDS: Metoprolol XL (24 HR) Succ 25 MG TAB.ER.24H PO SCH (20:40)
[2019-09-16] MEDS: Melatonin 3 MG TABLET PO SCH (20:40)
[2019-09-17 03:23] LABS: INR 1.9; Prothrombin Time 21.1 Seconds (9.4-12.1)
[2019-09-17] MEDS: Cefepime HCl 1,000 MG in 0.9 % Sodium Chloride Mini Bag 100 ML IVPB SCH ×2 (06:17→17:15)
[2019-09-17] MEDS: Insulin LISPRO 300 UNITS/3 ML VIAL SQ SCH ×4 (08:52→21:05)
[2019-09-17] MEDS: Fluticasone Propionate Nasal 50 MCG/SPRAY BOTTLE NS SCH (08:52)
[2019-09-17] MEDS: FLUoxetine 20 MG CAPSULE PO SCH (08:53)
[2019-09-17] MEDS: Multivit/Ca/Min/Fe/FA 1 TAB TABLET PO SCH (08:53)
[2019-09-17] MEDS: Aspirin Enteric Coated 81 MG Tablet PO SCH (08:53)
[2019-09-17] MEDS: Topiramate 25 MG TABLET PO SCH (08:53)
[2019-09-17] MEDS: Gabapentin 400 MG CAPSULE PO SCH ×3 (08:53→21:04)
[2019-09-17 11:01] LABS: Basophils # 0.1 K/mcL (0.0-0.2); Basophils % 0.7 %; Eosinophils # 0.2 K/mcL (0.0-0.6); Eosinophils % 3.1 %; Hematocrit 34.7 % (35.3-44.9); Hemoglobin 11.1 g/dL (11.5-15.4); Immature Granulocytes % 1.2 % (0-4); Lymphocytes # 1.9 K/mcL (0.6-4.6); Lymphocytes % 25.5 %; Mean Corpuscular Volume 84.4 fL (83.0-100.0); Mean Platelet Volume 10.4 fL (9.4-12.4); Monocytes # 0.4 K/mcL (0.0-1.3); Monocytes % 5.2 %; Neutrophils # 4.7 K/mcL (1.6-8.9); Platelet Count 285 K/mcL (140-400); Red Blood Count 4.11 M/mcL (3.82-4.97); Red Cell Distribution Width 14.7 % (11.5-14.5); Segmented Neutrophils % 64.3 %; White Blood Count 7.3 K/mcL (4.3-11.1)
[2019-09-17 11:27] LABS: BUN/Creatinine Ratio 16 (6-26); Blood Urea Nitrogen 12 mg/dL (6-20); Calcium 8.8 mg/dL (8.6-10.3); Carbon Dioxide 26 mEq/L (23-29); Chloride 102 mEq/L (98-107); Glucose 241 mg/dL (70-105); Osmolality,Calculated 290 (280-300); Potassium 4.3 mEq/L (3.5-5.1); Sodium 136 mEq/L (136-145); eGFR For African Americans > 60 (> 60); eGFR For Non-African Americans > 60 (> 60)
[2019-09-17] MEDS: *HR* OxyCODONE Immed Rel 5 MG TABLET PO PRN ×2 (12:28→21:03)
[2019-09-17] MEDS: clonazePAM 0.5 MG TABLET PO PRN (15:14)
[2019-09-17] MEDS ORDERED: *HR* Warfarin 3 MG TABLET PO ONE (18:00)
[2019-09-17] MEDS ORDERED: Insulin DETEMIR 100 UNIT/ML X5UNITS SQ SCH (21:00)
[2019-09-17] MEDS: Melatonin 3 MG TABLET PO SCH (21:03)
[2019-09-17] MEDS: Metoprolol XL (24 HR) Succ 25 MG TAB.ER.24H PO SCH (21:04)
[2019-09-18] MEDS: Cefepime HCl 1,000 MG in 0.9 % Sodium Chloride Mini Bag 100 ML IVPB SCH (06:13)
[2019-09-18 06:26] LABS: Basophils # 0.1 K/mcL (0.0-0.2); Basophils % 0.7 %; Eosinophils # 0.3 K/mcL (0.0-0.6); Eosinophils % 4.1 %; Hematocrit 35.2 % (35.3-44.9); Hemoglobin 11.1 g/dL (11.5-15.4); Immature Granulocytes % 1.4 % (0-4); Lymphocytes # 2.4 K/mcL (0.6-4.6); Lymphocytes % 29.1 %; Mean Corpuscular HGB Conc 31.5 g/dL (31.6-35.5); Mean Corpuscular Hemoglobin 27.6 pg (28.0-33.3); Mean Corpuscular Volume 87.6 fL (83.0-100.0); Mean Platelet Volume 10.4 fL (9.4-12.4); Monocytes # 0.5 K/mcL (0.0-1.3); Monocytes % 6.5 %; Neutrophils # 4.9 K/mcL (1.6-8.9); Platelet Count 254 K/mcL (140-400); Red Blood Count 4.02 M/mcL (3.82-4.97); Red Cell Distribution Width 14.7 % (11.5-14.5); Segmented Neutrophils % 58.2 %; White Blood Count 8.3 K/mcL (4.3-11.1)
[2019-09-18 06:29] LABS: INR 1.8
[2019-09-18 06:46] LABS: BUN/Creatinine Ratio 17 (6-26); Blood Urea Nitrogen 13 mg/dL (6-20); Calcium 8.5 mg/dL (8.6-10.3); Carbon Dioxide 25 mEq/L (23-29); Chloride 101 mEq/L (98-107); Glucose 161 mg/dL (70-105); Osmolality,Calculated 288 (280-300); Potassium 4.4 mEq/L (3.5-5.1); Sodium 137 mEq/L (136-145); eGFR For African Americans > 60 (> 60); eGFR For Non-African Americans > 60 (> 60)
[2019-09-18] MEDS: Fluticasone Propionate Nasal 50 MCG/SPRAY BOTTLE NS SCH (09:18)
[2019-09-18] MEDS: Multivit/Ca/Min/Fe/FA 1 TAB TABLET PO SCH (09:19)
[2019-09-18] MEDS: FLUoxetine 20 MG CAPSULE PO SCH (09:19)
[2019-09-18] MEDS: Aspirin Enteric Coated 81 MG Tablet PO SCH (09:19)
[2019-09-18] MEDS: Gabapentin 400 MG CAPSULE PO SCH (09:19)
[2019-09-18] MEDS: Topiramate 25 MG TABLET PO SCH (09:19)
[2019-09-18] MEDS: Insulin LISPRO 300 UNITS/3 ML VIAL SQ SCH ×2 (09:20→12:14)
[2019-09-18] MEDS ORDERED: Lidocaine -MPF 1% 5 ML AMPUL ID ONE (10:04)
[2019-09-18] MEDS: clonazePAM 0.5 MG TABLET PO PRN (10:13)
[2019-09-18] MEDS: *HR* OxyCODONE Immed Rel 5 MG TABLET PO PRN (10:13)
[2019-09-18 11:31] VITALS: BP 127/64
[2019-09-18] MEDS ORDERED: Aminoglycoside Consult 1 EACH MC ONE (13:57)
[2019-09-18] MEDS ORDERED: *HR* Warfarin 3 MG TABLET PO ONE (18:00)
== END 2019-09-18 13:58 | disposition home or self-care (01) | DRG 638 ==
LOC: 3ANU 17:19 → EMEROOARM 17:19 → SUATTDRO 20:57 → 3ANU 21:31
PROVIDERS: ADMIT Internal Medicine; ATTEND Family Medicine

== ENCOUNTER 2019-10-03 21:37 | Observation (INO) ==
[2019-10-03 21:57] LABS: Hemoglobin 11.8 g/dL (11.5-15.4); Mean Corpuscular HGB Conc 32.8 g/dL (31.6-35.5); Mean Corpuscular Hemoglobin 27.2 pg (28.0-33.3); Mean Corpuscular Volume 82.9 fL (83.0-100.0); Mean Platelet Volume 10.3 fL (9.4-12.4); Platelet Count 285 K/mcL (140-400); Red Blood Count 4.34 M/mcL (3.82-4.97); Red Cell Distribution Width 14.6 % (11.5-14.5); White Blood Count 9.5 K/mcL (4.3-11.1)
[2019-10-03 22:07] LABS: INR 1.6; Prothrombin Time 17.8 Seconds (9.4-12.1)
[2019-10-03 22:09] LABS: Activated Partial Thrombo Time 43.8 Seconds (26.0-36.0)
[2019-10-03 22:17] LABS: BUN/Creatinine Ratio 15 (6-26); Blood Urea Nitrogen 13 mg/dL (6-20); Calcium 8.7 mg/dL (8.6-10.3); Carbon Dioxide 22 mEq/L (23-29); Chloride 103 mEq/L (98-107); Glucose 227 mg/dL (70-105); Osmolality,Calculated 291 (280-300); Potassium 3.7 mEq/L (3.5-5.1); Sodium 137 mEq/L (136-145); Troponin I < 0.03 ng/mL (< 0.04); eGFR For African Americans > 60 (> 60); eGFR For Non-African Americans > 60 (> 60)
[2019-10-03 22:58] LABS: Bilirubin,Urine Negative (Negative); Blood,Urine Negative (Negative); Clarity,Urine Cloudy (Clear); Color,Urine Yellow (Yellow); Glucose,Urine (UA) 250 mg/dL (Normal); Ketones,Urine Negative (Negative); Leukocyte Esterase,Urine Negative (Negative); Nitrite,Urine Negative (Negative); PH,Urine 5.5 pH Units (5.0-8.0); Protein,Urine Negative (Neg-Trace); Specific Gravity,Urine 1.018 (1.010-1.025); Urobilinogen,Urine Normal (Normal)
[2019-10-03 23:00] LABS: Bacteria,Urine None Seen per hpf (None-Few); Hyaline Casts,Urine None Seen per lpf (None-Few); RBC,Urine 0-3 per hpf (0-3); Squamous Epithelial Cell,Urine Many per lpf (None-Few); WBC,Urine 0-3 per hpf (0-3)
[2019-10-03] MEDS ORDERED: Acetaminophen 325 MG TABLET PO ONE (23:08)
[2019-10-04] MEDS ORDERED: D5% in Water 1,000 ML IVC PRN (01:03)
[2019-10-04] MEDS ORDERED: *HR* Dextrose 50 % in Water (Syg) 50 ML SYRINGE IVP PRN (01:03)
[2019-10-04] MEDS ORDERED: Nicotine 2 MG GUM BC PRN (01:03)
[2019-10-04] MEDS ORDERED: Albuterol 2.5 MG/3 ML NEBULIZER IH PRN (01:03)
[2019-10-04] MEDS ORDERED: Dextrose Gel 15 GM/37.5 ML TUBE PO PRN ×2 (01:03)
[2019-10-04] MEDS ORDERED: Ipratropium/Albuterol Neb 3 ML IH PRN (01:03)
[2019-10-04] MEDS ORDERED: Naloxone 0.4 MG/ML INJ IVP PRN (01:03)
[2019-10-04] MEDS ORDERED: clonazePAM 0.5 MG TABLET PO PRN (01:09)
[2019-10-04] MEDS ORDERED: Fluticasone Propionate Nasal 50 MCG/SPRAY BOTTLE NS PRN (01:09)
[2019-10-04] MEDS ORDERED: Ringers Solution, Lactated 1,000 ML IVC SCH (01:15)
[2019-10-04] MEDS: Aspirin Enteric Coated 325 MG Tablet PO SCH ×2 (02:08→10:01)
[2019-10-04 03:49] LABS: INR 1.9; Prothrombin Time 22.1 Seconds (9.4-12.1)
[2019-10-04 03:52] LABS: Hematocrit 33.6 % (35.3-44.9); Hemoglobin 10.5 g/dL (11.5-15.4); Mean Corpuscular HGB Conc 31.3 g/dL (31.6-35.5); Mean Corpuscular Hemoglobin 27.2 pg (28.0-33.3); Mean Platelet Volume 10.9 fL (9.4-12.4); Platelet Count 213 K/mcL (140-400); Red Blood Count 3.86 M/mcL (3.82-4.97); Red Cell Distribution Width 14.6 % (11.5-14.5)
[2019-10-04 03:54] LABS: Alanine Aminotransferase 33 Units/L (7-52); Albumin 3.5 g/dL (3.5-5.7); Albumin/Globulin Ratio 1.3 (1.1-2.2); Alkaline Phosphatase 105 Units/L (34-104); Aspartate Amino Transferase 23 Units/L (13-39); BUN/Creatinine Ratio 19 (6-26); Bilirubin,Total 0.2 mg/dL (0.3-1.0); Blood Urea Nitrogen 15 mg/dL (6-20); Calcium 8.9 mg/dL (8.6-10.3); Carbon Dioxide 24 mEq/L (23-29); Chloride 105 mEq/L (98-107); Cholesterol 170 mg/dL (< 200); Globulin 2.7 g/dL (2.4-3.5); Glucose 152 mg/dL (70-105); HDL Cholesterol 34 mg/dL (40-59); LDL Cholesterol,Calculated 102 mg/dL (0-99); Magnesium 1.7 mg/dL (1.6-2.6); Osmolality,Calculated 294 (280-300); Phosphorous 4.5 mg/dL (2.7-4.5); Potassium 3.6 mEq/L (3.5-5.1); Sodium 140 mEq/L (136-145); Total Protein 6.2 g/dL (6.4-8.9); Triglycerides 171 mg/dL (< 150); Troponin I < 0.03 ng/mL (< 0.04); eGFR For African Americans > 60 (> 60); eGFR For Non-African Americans > 60 (> 60)
[2019-10-04 04:07] LABS: Thyroid Stimulating Hormone 2.412 mcIU/mL (0.340-5.600)
[2019-10-04] MEDS: Insulin LISPRO 300 UNITS/3 ML VIAL SQ SCH ×3 (05:54→16:35)
[2019-10-04] MEDS ORDERED: Isovue-370 500 ML BOTTLE IVP ONE (06:00)
[2019-10-04 08:07] LABS: Estimated Average Glucose 180 mg/dl
[2019-10-04] MEDS ORDERED: Perflutren Lipid Microsphere 1.3 ML in 0.9 % Sodium Chloride 8.7 ML IVP ONE (08:44)
[2019-10-04] MEDS ORDERED: Aspirin Enteric Coated 81 MG Tablet PO SCH (09:00)
[2019-10-04] MEDS: Metoprolol XL (24 HR) Succ 25 MG TAB.ER.24H PO SCH (10:15)
[2019-10-04] MEDS: FLUoxetine 20 MG CAPSULE PO SCH (10:15)
[2019-10-04] MEDS: Gabapentin 400 MG CAPSULE PO SCH ×3 (10:15→21:07)
[2019-10-04] MEDS: Topiramate 25 MG TABLET PO SCH (10:15)
[2019-10-04] MEDS: Multivit/Ca/Min/Fe/FA 1 TAB TABLET PO SCH (10:16)
[2019-10-04] MEDS: Nicotine 14 MG PATCH.TD24 TD SCH (10:16)
[2019-10-04] MEDS ORDERED: Ondansetron ODT 4 MG TAB.RAPDIS SL PRN (13:05)
[2019-10-04] MEDS: SUMAtriptan succinate 25 MG TABLET PO PRN ×3 (15:21→21:07)
[2019-10-04] MEDS: hydrOXYzine pamoate 25 MG CAPSULE PO PRN ×2 (16:27→21:07)
[2019-10-04] MEDS ORDERED: Warfarin perPT PO PRN (18:00)
[2019-10-04] MEDS ORDERED: *HR* Warfarin 3 MG TABLET PO ONE (18:00)
[2019-10-04] MEDS ORDERED: Melatonin 3 MG TABLET PO SCH (21:00)
[2019-10-04] MEDS ORDERED: Metoprolol XL (24 HR) Succ 25 MG TAB.ER.24H PO SCH (21:00)
[2019-10-05] MEDS: Insulin LISPRO 300 UNITS/3 ML VIAL SQ SCH ×2 (00:25→06:31)
[2019-10-05 05:19] LABS: Prothrombin Time 23.3 Seconds (9.4-12.1)
[2019-10-05 08:05] VITALS: BP 116/67
[2019-10-05] MEDS: Metoprolol XL (24 HR) Succ 25 MG TAB.ER.24H PO SCH (10:57)
[2019-10-05] MEDS: FLUoxetine 20 MG CAPSULE PO SCH (10:58)
[2019-10-05] MEDS: Aspirin Enteric Coated 325 MG Tablet PO SCH (10:58)
[2019-10-05] MEDS: Topiramate 25 MG TABLET PO SCH (10:58)
[2019-10-05] MEDS: Multivit/Ca/Min/Fe/FA 1 TAB TABLET PO SCH (10:58)
[2019-10-05] MEDS: Nicotine 14 MG PATCH.TD24 TD SCH (10:59)
[2019-10-05] MEDS: Gabapentin 400 MG CAPSULE PO SCH (10:59)
[2019-10-05] MEDS ORDERED: Warfarin 2.5 MG, Warfarin 2 MG PO ONE (18:00)
== END 2019-10-05 12:54 | disposition home or self-care (01) ==
LOC: EMEROOARM 21:37 → 2NENU 21:37 → SUATTDRO 23:24 → 2NENU 10-04 00:11
PROVIDERS: ADMIT Internal Medicine; ATTEND Internal Medicine

== ENCOUNTER 2019-10-14 16:20 | Observation (INO) ==
[2019-10-14] MEDS ORDERED: Isovue-370 500 ML BOTTLE IVP ONE (16:30)
[2019-10-14 16:48] LABS: Hematocrit 34.8 % (35.3-44.9); Hemoglobin 11.6 g/dL (11.5-15.4); Mean Corpuscular HGB Conc 33.3 g/dL (31.6-35.5); Mean Corpuscular Hemoglobin 27.1 pg (28.0-33.3); Mean Corpuscular Volume 81.3 fL (83.0-100.0); Mean Platelet Volume 9.7 fL (9.4-12.4); Platelet Count 295 K/mcL (140-400); Red Blood Count 4.28 M/mcL (3.82-4.97); Red Cell Distribution Width 14.9 % (11.5-14.5); White Blood Count 9.5 K/mcL (4.3-11.1)
[2019-10-14 16:56] LABS: INR 3.3; Prothrombin Time 37.4 Seconds (9.4-12.1)
[2019-10-14 16:59] LABS: Activated Partial Thrombo Time 63.7 Seconds (26.0-36.0)
[2019-10-14 17:12] LABS: BUN/Creatinine Ratio 15 (6-26); Blood Urea Nitrogen 11 mg/dL (6-20); Calcium 8.6 mg/dL (8.6-10.3); Carbon Dioxide 24 mEq/L (23-29); Chloride 108 mEq/L (98-107); Ethanol < 10 mg/dL (Less than 10); Glucose 166 mg/dL (70-105); Osmolality,Calculated 291 (280-300); Potassium 3.8 mEq/L (3.5-5.1); Sodium 139 mEq/L (136-145); eGFR For African Americans > 60 (> 60); eGFR For Non-African Americans > 60 (> 60)
[2019-10-14 17:13] LABS: Troponin I < 0.03 ng/mL (< 0.04)
[2019-10-14] MEDS ORDERED: Naloxone 0.4 MG/ML INJ IVP PRN (18:20)
[2019-10-14] MEDS ORDERED: Ondansetron 4 MG/2 ML VIAL IVP PRN (18:20)
[2019-10-14] MEDS ORDERED: *HR* Dextrose 50 % in Water (Syg) 50 ML SYRINGE IVP PRN (18:31)
[2019-10-14] MEDS ORDERED: Dextrose Gel 15 GM/37.5 ML TUBE PO PRN ×2 (18:31)
[2019-10-14] MEDS ORDERED: D5% in Water 1,000 ML IVC PRN (18:31)
[2019-10-14] MEDS: Acetaminophen 325 MG TABLET PO PRN (18:51)
[2019-10-14] MEDS ORDERED: hydrOXYzine pamoate 25 MG CAPSULE PO PRN (19:55)
[2019-10-14] MEDS ORDERED: clonazePAM 0.5 MG TABLET PO PRN (19:55)
[2019-10-14] MEDS ORDERED: Nitroglycerin 0.4 MG TAB.SUBL SL PRN (19:55)
[2019-10-14] MEDS ORDERED: Insulin LISPRO 300 UNITS/3 ML VIAL SQ SCH (21:00)
[2019-10-14] MEDS ORDERED: Melatonin 3 MG TABLET PO SCH (21:00)
[2019-10-14] MEDS ORDERED: Metoprolol XL (24 HR) Succ 25 MG TAB.ER.24H PO SCH (21:00)
[2019-10-14] MEDS: Gabapentin 400 MG CAPSULE PO SCH (22:21)
[2019-10-14] MEDS: *HR* Heparin 5,000 UNIT/ML VIAL SQ SCH (22:22)
[2019-10-15 05:18] LABS: Amphetamine Screen,Urine Negative ng/mL (Cutoff=1000); Barbiturate Screen,Urine Positive ng/mL (Cutoff=200); Benzodiazepines Screen,Urine Negative ng/mL (Cutoff=200); Cannabinoid Screen,Urine Negative ng/mL (Cutoff = 50); Cocaine Screen,Urine Negative ng/mL (Cutoff= 300); Opiate Screen,Urine Negative ng/mL (Cutoff=300); Phencyclidine Screen,Urine Negative ng/mL (Cutoff=25)
[2019-10-15 06:17] LABS: Basophils % 0.6 %; Eosinophils # 0.2 K/mcL (0.0-0.6); Eosinophils % 2.2 %; Hematocrit 32.5 % (35.3-44.9); Hemoglobin 10.3 g/dL (11.5-15.4); Immature Granulocytes % 0.4 % (0-4); Lymphocytes # 2.2 K/mcL (0.6-4.6); Lymphocytes % 30.3 %; Mean Corpuscular HGB Conc 31.7 g/dL (31.6-35.5); Mean Corpuscular Hemoglobin 26.9 pg (28.0-33.3); Mean Corpuscular Volume 84.9 fL (83.0-100.0); Mean Platelet Volume 10.6 fL (9.4-12.4); Monocytes # 0.4 K/mcL (0.0-1.3); Monocytes % 5.9 %; Neutrophils # 4.4 K/mcL (1.6-8.9); Platelet Count 252 K/mcL (140-400); Red Blood Count 3.83 M/mcL (3.82-4.97); Red Cell Distribution Width 14.9 % (11.5-14.5); Segmented Neutrophils % 60.6 %; White Blood Count 7.2 K/mcL (4.3-11.1)
[2019-10-15 06:30] LABS: INR 3.3; Prothrombin Time 37.7 Seconds (9.4-12.1)
[2019-10-15 06:42] LABS: Alanine Aminotransferase 32 Units/L (7-52); Albumin 3.4 g/dL (3.5-5.7); Albumin/Globulin Ratio 1.5 (1.1-2.2); Alkaline Phosphatase 109 Units/L (34-104); Aspartate Amino Transferase 22 Units/L (13-39); BUN/Creatinine Ratio 16 (6-26); Bilirubin,Total 0.3 mg/dL (0.3-1.0); Blood Urea Nitrogen 12 mg/dL (6-20); Calcium 8.7 mg/dL (8.6-10.3); Carbon Dioxide 24 mEq/L (23-29); Chloride 107 mEq/L (98-107); Chol/HDL Ratio 4.5 (0-4.9); Cholesterol 149 mg/dL (< 200); Globulin 2.3 g/dL (2.4-3.5); Glucose 145 mg/dL (70-105); HDL Cholesterol 33 mg/dL (40-59); LDL Cholesterol,Calculated 69 mg/dL (0-99); Osmolality,Calculated 292 (280-300); Potassium 3.6 mEq/L (3.5-5.1); Sodium 140 mEq/L (136-145); Total Protein 5.7 g/dL (6.4-8.9); Triglycerides 237 mg/dL (< 150); Troponin I < 0.03 ng/mL (< 0.04); eGFR For African Americans > 60 (> 60); eGFR For Non-African Americans > 60 (> 60)
[2019-10-15 06:52] LABS: Thyroid Stimulating Hormone 1.381 mcIU/mL (0.340-5.600)
[2019-10-15] MEDS: *HR* Heparin 5,000 UNIT/ML VIAL SQ SCH (07:29)
[2019-10-15 08:26] LABS: Estimated Average Glucose 177 mg/dl
[2019-10-15] MEDS ORDERED: Fluticasone Propionate Nasal 50 MCG/SPRAY BOTTLE NS SCH (09:00)
[2019-10-15] MEDS ORDERED: Metoprolol XL (24 HR) Succ 25 MG TAB.ER.24H PO SCH (09:00)
[2019-10-15] MEDS ORDERED: Multivit/Ca/Min/Fe/FA 1 TAB TABLET PO SCH (09:00)
[2019-10-15] MEDS ORDERED: Aspirin Enteric Coated 81 MG Tablet PO SCH (09:00)
[2019-10-15] MEDS ORDERED: Topiramate 25 MG TABLET PO SCH (09:00)
[2019-10-15] MEDS ORDERED: FLUoxetine 20 MG CAPSULE PO SCH (09:00)
[2019-10-15] MEDS: Insulin LISPRO 300 UNITS/3 ML VIAL SQ SCH ×2 (09:33→11:39)
[2019-10-15] MEDS: Gabapentin 400 MG CAPSULE PO SCH ×2 (09:33→15:00)
[2019-10-15 10:36] VITALS: BP 110/75
[2019-10-15] MEDS: Acetaminophen 325 MG TABLET PO PRN (11:40)
[2019-10-15] MEDS ORDERED: *HR* Promethazine 25 MG/ML VIAL IVP ONE (12:42)
[2019-10-15] MEDS ORDERED: Ketorolac 15 MG/ML VIAL IVP ONE (12:42)
[2019-10-15] MEDS ORDERED: Valproic Acid INJ 500 MG in 0.9 % Sodium Chloride 100 ML IVPB ONE (12:45)
[2019-10-15] MEDS ORDERED: Warfarin perPT PO PRN (18:00)
== END 2019-10-15 15:20 | disposition home or self-care (01) ==
LOC: SUATTDRO → EMEROOARM 16:20 → CDU 16:20 → SUATTDRO 20:22
PROVIDERS: ADMIT Pharmacist; ATTEND Internal Medicine

== ENCOUNTER 2020-02-06 19:55 | Observation (INO) ==
[2020-02-06] MEDS ORDERED: Aspirin 325 MG TABLET PO ONE (20:08)
[2020-02-06 20:19] LABS: Basophils % 0.4 %; Eosinophils # 0.1 K/mcL (0.0-0.6); Eosinophils % 0.8 %; Hematocrit 36.6 % (35.3-44.9); Hemoglobin 11.2 g/dL (11.5-15.4); Immature Granulocytes % 0.8 % (0-4); Lymphocytes % 29.8 %; Mean Corpuscular HGB Conc 30.6 g/dL (31.6-35.5); Mean Corpuscular Hemoglobin 24.1 pg (28.0-33.3); Mean Corpuscular Volume 78.9 fL (83.0-100.0); Mean Platelet Volume 9.9 fL (9.4-12.4); Monocytes # 0.6 K/mcL (0.0-1.3); Monocytes % 5.7 %; Neutrophils # 6.3 K/mcL (1.6-8.9); Platelet Count 340 K/mcL (140-400); Red Blood Count 4.64 M/mcL (3.82-4.97); Red Cell Distribution Width 16.6 % (11.5-14.5); Segmented Neutrophils % 62.5 %
[2020-02-06] MEDS ORDERED: Nitroglycerin 1 INCH/GM PACKET TP ONE (20:20)
[2020-02-06 20:29] LABS: Prothrombin Time 22.4 Seconds (9.4-12.1)
[2020-02-06 20:31] LABS: Activated Partial Thrombo Time 41.4 Seconds (26.0-36.0)
[2020-02-06 20:56] LABS: Alanine Aminotransferase 26 Units/L (7-52); Albumin 3.9 g/dL (3.5-5.7); Albumin/Globulin Ratio 1.4 (1.1-2.2); Alkaline Phosphatase 104 Units/L (34-104); Aspartate Amino Transferase 21 Units/L (13-39); BUN/Creatinine Ratio 19 (6-26); Bilirubin,Direct 0.1 mg/dL (0.0-0.2); Bilirubin,Indirect 0.2 mg/dL (0.0-1.0); Bilirubin,Total 0.3 mg/dL (0.3-1.0); Blood Urea Nitrogen 19 mg/dL (6-20); Calcium 8.8 mg/dL (8.6-10.3); Carbon Dioxide 28 mEq/L (23-29); Chloride 101 mEq/L (98-107); Globulin 2.7 g/dL (2.4-3.5); Glucose 173 mg/dL (70-105); Osmolality,Calculated 290 (280-300); Potassium 4.6 mEq/L (3.5-5.1); Sodium 137 mEq/L (136-145); Thyroid Stimulating Hormone 1.441 mcIU/mL (0.340-5.600); Total Protein 6.6 g/dL (6.4-8.9); Troponin I < 0.03 ng/mL (< 0.04); eGFR For African Americans > 60 (> 60); eGFR For Non-African Americans 56 (> 60)
[2020-02-06] MEDS ORDERED: GI Cocktail 40 ML EACH PO ONE (21:58)
[2020-02-07] MEDS ORDERED: Ondansetron 4 MG/2 ML VIAL IVP PRN (00:10)
[2020-02-07] MEDS ORDERED: Nitroglycerin 0.4 MG TAB.SUBL SL PRN (00:10)
[2020-02-07] MEDS ORDERED: hydrOXYzine pamoate 25 MG CAPSULE PO PRN (00:12)
[2020-02-07 01:33] LABS: White Blood Count 8.9 K/mcL (4.3-11.1)
[2020-02-07 01:34] LABS: Basophils % 0.4 %; Eosinophils # 0.1 K/mcL (0.0-0.6); Eosinophils % 1.2 %; Hematocrit 34.7 % (35.3-44.9); Hemoglobin 10.3 g/dL (11.5-15.4); Immature Granulocytes % 0.7 % (0-4); Lymphocytes # 3.1 K/mcL (0.6-4.6); Mean Corpuscular HGB Conc 29.7 g/dL (31.6-35.5); Mean Corpuscular Hemoglobin 23.3 pg (28.0-33.3); Mean Corpuscular Volume 78.5 fL (83.0-100.0); Mean Platelet Volume 10.5 fL (9.4-12.4); Monocytes # 0.6 K/mcL (0.0-1.3); Monocytes % 7.2 %; Platelet Count 320 K/mcL (140-400); Red Blood Count 4.42 M/mcL (3.82-4.97); Red Cell Distribution Width 16.6 % (11.5-14.5); Segmented Neutrophils % 55.5 %
[2020-02-07 01:41] LABS: Prothrombin Time 22.6 Seconds (9.4-12.1)
[2020-02-07 01:50] LABS: Alanine Aminotransferase 24 Units/L (7-52); Albumin 3.6 g/dL (3.5-5.7); Albumin/Globulin Ratio 1.5 (1.1-2.2); Alkaline Phosphatase 92 Units/L (34-104); Aspartate Amino Transferase 18 Units/L (13-39); BUN/Creatinine Ratio 24 (6-26); Bilirubin,Total 0.3 mg/dL (0.3-1.0); Blood Urea Nitrogen 21 mg/dL (6-20); Calcium 8.2 mg/dL (8.6-10.3); Carbon Dioxide 26 mEq/L (23-29); Chloride 100 mEq/L (98-107); Globulin 2.4 g/dL (2.4-3.5); Glucose 132 mg/dL (70-105); Magnesium 1.9 mg/dL (1.6-2.6); Osmolality,Calculated 287 (280-300); Potassium 4.1 mEq/L (3.5-5.1); Sodium 136 mEq/L (136-145); eGFR For African Americans > 60 (> 60); eGFR For Non-African Americans > 60 (> 60)
[2020-02-07] MEDS ORDERED: D5% in Water 1,000 ML IVC PRN (02:51)
[2020-02-07] MEDS ORDERED: Dextrose Gel 15 GM/37.5 ML TUBE PO PRN ×2 (02:51)
[2020-02-07] MEDS ORDERED: *HR* Dextrose 50 % in Water (Syg) 50 ML SYRINGE IVP PRN (02:51)
[2020-02-07 04:46] LABS: Basophils # 0.1 K/mcL (0.0-0.2); Basophils % 0.6 %; Eosinophils # 0.1 K/mcL (0.0-0.6); Eosinophils % 1.3 %; Hematocrit 34.1 % (35.3-44.9); Hemoglobin 10.5 g/dL (11.5-15.4); Immature Granulocytes % 0.6 % (0-4); Mean Corpuscular HGB Conc 30.8 g/dL (31.6-35.5); Mean Corpuscular Hemoglobin 24.4 pg (28.0-33.3); Mean Corpuscular Volume 79.3 fL (83.0-100.0); Mean Platelet Volume 10.1 fL (9.4-12.4); Monocytes # 0.6 K/mcL (0.0-1.3); Monocytes % 7.3 %; Neutrophils # 4.7 K/mcL (1.6-8.9); Platelet Count 294 K/mcL (140-400); Red Cell Distribution Width 16.7 % (11.5-14.5); Segmented Neutrophils % 55.2 %; White Blood Count 8.5 K/mcL (4.3-11.1)
[2020-02-07 04:47] LABS: Prothrombin Time 23.2 Seconds (9.4-12.1)
[2020-02-07 05:05] LABS: BUN/Creatinine Ratio 29 (6-26); Blood Urea Nitrogen 22 mg/dL (6-20); Calcium 8.4 mg/dL (8.6-10.3); Carbon Dioxide 27 mEq/L (23-29); Chloride 100 mEq/L (98-107); Glucose 140 mg/dL (70-105); Osmolality,Calculated 290 (280-300); Potassium 4.2 mEq/L (3.5-5.1); Sodium 137 mEq/L (136-145); eGFR For African Americans > 60 (> 60); eGFR For Non-African Americans > 60 (> 60)
[2020-02-07] MEDS ORDERED: Divalproex Sodium 125 MG CAPSULE PO SCH (06:00)
[2020-02-07] MEDS ORDERED: Pantoprazole 40 MG VIAL IVP SCH (06:00)
[2020-02-07] MEDS ORDERED: Insulin LISPRO 300 UNITS/3 ML VIAL SQ SCH ×2 (07:30→21:00)
[2020-02-07 08:33] LABS: Estimated Average Glucose 209 mg/dl
[2020-02-07] MEDS ORDERED: risperiDONE 1 MG TABLET PO SCH (09:00)
[2020-02-07] MEDS ORDERED: Gabapentin 400 MG CAPSULE PO SCH (09:00)
[2020-02-07] MEDS ORDERED: Furosemide 20 MG TABLET PO SCH (09:00)
[2020-02-07] MEDS ORDERED: Aspirin Enteric Coated 81 MG Tablet PO SCH (09:00)
[2020-02-07] MEDS ORDERED: FLUoxetine 20 MG CAPSULE PO SCH (09:00)
[2020-02-07 09:53] VITALS: BP 110/68
[2020-02-07] MEDS ORDERED: Budesonide/Formoterol 160/4.5 1 PUFF INH IH SCH (10:00)
[2020-02-07] MEDS ORDERED: *HR* Warfarin 3 MG TABLET PO SCH (18:00)
[2020-02-07] MEDS ORDERED: Melatonin 3 MG TABLET PO SCH (21:00)
[2020-02-07] MEDS ORDERED: QUEtiapine Fumarate 300 MG TABLET PO SCH (21:00)
[2020-02-07] MEDS ORDERED: Metoprolol XL (24 HR) Succ 25 MG TAB.ER.24H PO SCH (21:00)
== END 2020-02-07 11:27 | disposition home or self-care (01) ==
LOC: EMEROOARM 19:55 → 3BNU 19:55 → SUATTDRO 22:17 → 3BNU 22:45
PROVIDERS: ADMIT Internal Medicine; ATTEND Internal Medicine

== ENCOUNTER 2021-04-17 14:22 | Inpatient (IN) ==
[2021-04-17] MEDS ORDERED: Aspirin 81 MG TAB.CHEW PO ONE (14:29)
[2021-04-17 14:56] LABS: Basophils % 0.4 %; Eosinophils # 0.1 K/mcL (0.0-0.6); Eosinophils % 1.4 %; Hematocrit 38.3 % (35.3-44.9); Hemoglobin 11.7 g/dL (11.5-15.4); Immature Granulocytes % 0.9 % (0-4); Lymphocytes # 2.7 K/mcL (0.6-4.6); Mean Corpuscular HGB Conc 30.5 g/dL (31.6-35.5); Mean Corpuscular Hemoglobin 26.2 pg (28.0-33.3); Mean Corpuscular Volume 85.9 fL (83.0-100.0); Mean Platelet Volume 9.6 fL (9.4-12.4); Monocytes # 0.6 K/mcL (0.0-1.3); Monocytes % 7.4 %; Neutrophils # 4.6 K/mcL (1.6-8.9); Platelet Count 280 K/mcL (140-400); Red Blood Count 4.46 M/mcL (3.82-4.97); Red Cell Distribution Width 19.6 % (11.5-14.5); Segmented Neutrophils % 56.9 %; White Blood Count 8.1 K/mcL (4.3-11.1)
[2021-04-17] MEDS: Nitroglycerin 0.4 MG TAB.SUBL SL PRN ×3 (15:00→15:10)
[2021-04-17 15:04] LABS: INR 3.2; Prothrombin Time 35.3 Seconds (9.4-12.1)
[2021-04-17 15:07] LABS: Activated Partial Thrombo Time 46.9 Seconds (26.0-36.0)
[2021-04-17] MEDS ORDERED: Morphine Sulfate 2 MG/ML SYRINGE IVP ONE ×2 (15:20→16:22)
[2021-04-17 15:34] LABS: BUN/Creatinine Ratio 21 (6-26); Blood Urea Nitrogen 15 mg/dL (6-20); Calcium 8.5 mg/dL (8.6-10.3); Carbon Dioxide 23 mEq/L (23-29); Chloride 105 mEq/L (98-107); Glucose 158 mg/dL (70-105); Osmolality,Calculated 290 (280-300); Potassium 4.1 mEq/L (3.5-5.1); Sodium 138 mEq/L (136-145); Troponin I < 0.03 ng/mL (< 0.04); eGFR For African Americans > 60 (> 60); eGFR For Non-African Americans > 60 (> 60)
[2021-04-17] MEDS ORDERED: Naloxone 0.4 MG/ML INJ IVP PRN (17:05)
[2021-04-17] MEDS ORDERED: Furosemide 20 MG TABLET PO PRN (17:27)
[2021-04-17] MEDS ORDERED: *HR* Dextrose 50 % in Water (Vial) 50 ML VIAL IVP PRN (18:33)
[2021-04-17] MEDS ORDERED: Dextrose Gel 15 GM/37.5 ML TUBE PO PRN ×2 (18:33)
[2021-04-17] MEDS ORDERED: D5% in Water 1,000 ML IVC PRN (18:33)
[2021-04-17] MEDS ORDERED: Ipratropium/Albuterol Neb 3 ML IH PRN (18:34)
[2021-04-17] MEDS ORDERED: Morphine Sulfate 2 MG/ML SYRINGE IVP PRN (18:48)
[2021-04-17] MEDS: Nicotine 21 MG PATCH.TD24 TD SCH (19:37)
[2021-04-17] MEDS: Budesonide/Formoterol 160/4.5 1 PUFF INH IH SCH (20:02)
[2021-04-17] MEDS: Insulin LISPRO 300 UNITS/3 ML VIAL SUBQ SCH (21:08)
[2021-04-17] MEDS: Gabapentin 400 MG CAPSULE PO SCH (21:16)
[2021-04-17] MEDS: Divalproex (12 HR) 500 MG TABLET PO SCH (21:16)
[2021-04-17] MEDS: Metoprolol XL (24 HR) Succ 25 MG TAB.ER.24H PO SCH (21:16)
[2021-04-17] MEDS: Celecoxib 100 MG CAPSULE PO SCH (21:17)
[2021-04-17] MEDS: QUEtiapine Fumarate 100 MG TABLET PO SCH (21:17)
[2021-04-17] MEDS: Acetaminophen 325 MG TABLET PO PRN (23:32)
[2021-04-18 02:39] LABS: Basophils % 0.4 %; Eosinophils # 0.1 K/mcL (0.0-0.6); Eosinophils % 1.8 %; Hematocrit 34.6 % (35.3-44.9); Hemoglobin 10.6 g/dL (11.5-15.4); Immature Granulocytes % 0.7 % (0-4); Lymphocytes # 2.3 K/mcL (0.6-4.6); Lymphocytes % 31.1 %; Mean Corpuscular HGB Conc 30.6 g/dL (31.6-35.5); Mean Corpuscular Hemoglobin 25.8 pg (28.0-33.3); Mean Corpuscular Volume 84.2 fL (83.0-100.0); Mean Platelet Volume 9.8 fL (9.4-12.4); Monocytes # 0.6 K/mcL (0.0-1.3); Neutrophils # 4.3 K/mcL (1.6-8.9); Platelet Count 252 K/mcL (140-400); Red Blood Count 4.11 M/mcL (3.82-4.97); Red Cell Distribution Width 19.8 % (11.5-14.5); White Blood Count 7.4 K/mcL (4.3-11.1)
[2021-04-18 02:53] LABS: BUN/Creatinine Ratio 29 (6-26); Blood Urea Nitrogen 19 mg/dL (6-20); Carbon Dioxide 24 mEq/L (23-29); Chloride 103 mEq/L (98-107); Chol/HDL Ratio 3.6 (0-4.9); Cholesterol 168 mg/dL (< 200); Glucose 172 mg/dL (70-105); HDL Cholesterol 47 mg/dL (40-59); LDL Cholesterol,Calculated 80 mg/dL (< 100); Osmolality,Calculated 286 (280-300); Potassium 4.7 mEq/L (3.5-5.1); Sodium 135 mEq/L (136-145); Triglycerides 207 mg/dL (< 150); eGFR For African Americans > 60 (> 60); eGFR For Non-African Americans > 60 (> 60)
[2021-04-18 03:37] LABS: Estimated Average Glucose 169 mg/dl; Hemoglobin A1C 7.5 %
[2021-04-18] MEDS: Budesonide/Formoterol 160/4.5 1 PUFF INH IH SCH ×2 (08:04→20:02)
[2021-04-18] MEDS: Insulin LISPRO 300 UNITS/3 ML VIAL SUBQ SCH ×4 (08:06→21:08)
[2021-04-18] MEDS: Aspirin Enteric Coated 81 MG Tablet PO SCH (08:42)
[2021-04-18] MEDS: Furosemide 20 MG TABLET PO SCH (08:42)
[2021-04-18] MEDS: Gabapentin 400 MG CAPSULE PO SCH ×3 (08:43→21:27)
[2021-04-18] MEDS: Divalproex (12 HR) 500 MG TABLET PO SCH ×2 (08:43→21:30)
[2021-04-18] MEDS: lisinopriL 5 MG TABLET PO SCH (08:43)
[2021-04-18] MEDS: Metoprolol XL (24 HR) Succ 25 MG TAB.ER.24H PO SCH ×2 (08:43→21:08)
[2021-04-18] MEDS: FLUoxetine 20 MG CAPSULE PO SCH (08:44)
[2021-04-18] MEDS: Celecoxib 100 MG CAPSULE PO SCH ×2 (08:46→21:27)
[2021-04-18] MEDS: Nicotine 21 MG PATCH.TD24 TD SCH (08:46)
[2021-04-18] MEDS ORDERED: Isosorbide MONOnitrate (24 HR) 30 MG TAB.ER.24H PO SCH (09:00)
[2021-04-18] MEDS: Acetaminophen 325 MG TABLET PO PRN (10:46)
[2021-04-18 13:31] LABS: INR 2.1; Prothrombin Time 24.2 Seconds (9.4-12.1)
[2021-04-18] MEDS: Acetaminophen/Butalbital/CaffeineTABLET PO PRN ×2 (13:39→19:39)
[2021-04-18] MEDS: Ranolazine 500 MG TAB.ER.12H PO SCH ×2 (16:54→21:29)
[2021-04-18] MEDS: Nitroglycerin 0.4 MG TAB.SUBL SL PRN (17:41)
[2021-04-18] MEDS ORDERED: *HR* Heparin 5,000 UNIT/ML VIAL IVP ONE (18:13)
[2021-04-18] MEDS ORDERED: *HR* Heparin 5,000 UNIT/ML VIAL IVP PRN ×2 (18:13)
[2021-04-18] MEDS: Heparin 25,000UNIT/250ML 1/2NS 25,000 UNIT/250 ML IV.SOLN IVC SCH (19:18)
[2021-04-18] MEDS: QUEtiapine Fumarate 100 MG TABLET PO SCH (21:27)
[2021-04-18] MEDS: Nicotine 14 MG PATCH.TD24 TD SCH (22:57)
[2021-04-19 05:08] LABS: INR 1.7; Prothrombin Time 19.8 Seconds (9.4-12.1)
[2021-04-19] MEDS: Budesonide/Formoterol 160/4.5 1 PUFF INH IH SCH ×2 (07:30→19:15)
[2021-04-19] MEDS: Insulin LISPRO 300 UNITS/3 ML VIAL SUBQ SCH ×4 (07:45→20:41)
[2021-04-19] MEDS: Celecoxib 100 MG CAPSULE PO SCH ×2 (08:33→20:40)
[2021-04-19] MEDS: Metoprolol XL (24 HR) Succ 25 MG TAB.ER.24H PO SCH ×2 (08:33→20:40)
[2021-04-19] MEDS: Furosemide 20 MG TABLET PO SCH (08:33)
[2021-04-19] MEDS: Gabapentin 400 MG CAPSULE PO SCH ×3 (08:33→20:40)
[2021-04-19] MEDS: lisinopriL 5 MG TABLET PO SCH (08:33)
[2021-04-19] MEDS: Nicotine 14 MG PATCH.TD24 TD SCH (08:34)
[2021-04-19] MEDS: Aspirin Enteric Coated 81 MG Tablet PO SCH (08:34)
[2021-04-19] MEDS: Ranolazine 500 MG TAB.ER.12H PO SCH ×2 (08:34→20:40)
[2021-04-19] MEDS: Divalproex (12 HR) 500 MG TABLET PO SCH ×2 (08:34→20:40)
[2021-04-19] MEDS: FLUoxetine 20 MG CAPSULE PO SCH (08:34)
[2021-04-19] MEDS: Isosorbide MONOnitrate (24 HR) 60 MG TAB.ER.24H PO SCH (08:34)
[2021-04-19] MEDS: Acetaminophen/Butalbital/CaffeineTABLET PO PRN (15:43)
[2021-04-19] MEDS: Heparin 25,000UNIT/250ML 1/2NS 25,000 UNIT/250 ML IV.SOLN IVC SCH (20:38)
[2021-04-19] MEDS: QUEtiapine Fumarate 100 MG TABLET PO SCH (20:41)
[2021-04-20 05:05] LABS: BUN/Creatinine Ratio 28 (6-26); Blood Urea Nitrogen 23 mg/dL (6-20); Calcium 8.6 mg/dL (8.6-10.3); Carbon Dioxide 19 mEq/L (23-29); Chloride 101 mEq/L (98-107); Glucose 102 mg/dL (70-105); Osmolality,Calculated 280 (280-300); Potassium 4.7 mEq/L (3.5-5.1); Sodium 133 mEq/L (136-145); eGFR For African Americans > 60 (> 60); eGFR For Non-African Americans > 60 (> 60)
[2021-04-20 06:05] LABS: Basophils # 0.1 K/mcL (0.0-0.2); Basophils % 0.6 %; Eosinophils # 0.1 K/mcL (0.0-0.6); Eosinophils % 1.4 %; Hematocrit 33.2 % (35.3-44.9); Hemoglobin 10.9 g/dL (11.5-15.4); Immature Granulocytes % 1.3 % (0-4); Lymphocytes % 35.8 %; Mean Corpuscular HGB Conc 32.8 g/dL (31.6-35.5); Mean Corpuscular Hemoglobin 26.8 pg (28.0-33.3); Mean Corpuscular Volume 81.8 fL (83.0-100.0); Mean Platelet Volume 10.1 fL (9.4-12.4); Monocytes # 0.6 K/mcL (0.0-1.3); Monocytes % 7.2 %; Neutrophils # 4.5 K/mcL (1.6-8.9); Platelet Count 220 K/mcL (140-400); Red Blood Count 4.06 M/mcL (3.82-4.97); Red Cell Distribution Width 19.3 % (11.5-14.5); Segmented Neutrophils % 53.7 %; White Blood Count 8.4 K/mcL (4.3-11.1)
[2021-04-20] MEDS: Insulin LISPRO 300 UNITS/3 ML VIAL SUBQ SCH ×4 (08:38→21:16)
[2021-04-20] MEDS: Celecoxib 100 MG CAPSULE PO SCH ×2 (09:02→21:15)
[2021-04-20] MEDS: Aspirin Enteric Coated 81 MG Tablet PO SCH (09:02)
[2021-04-20] MEDS: lisinopriL 5 MG TABLET PO SCH (09:03)
[2021-04-20] MEDS: FLUoxetine 20 MG CAPSULE PO SCH (09:04)
[2021-04-20] MEDS: Ranolazine 500 MG TAB.ER.12H PO SCH ×2 (09:04→21:14)
[2021-04-20] MEDS: Furosemide 20 MG TABLET PO SCH (09:05)
[2021-04-20] MEDS: Metoprolol XL (24 HR) Succ 25 MG TAB.ER.24H PO SCH ×2 (09:05→21:16)
[2021-04-20] MEDS: Divalproex (12 HR) 500 MG TABLET PO SCH ×2 (09:05→21:15)
[2021-04-20] MEDS: Gabapentin 400 MG CAPSULE PO SCH ×2 (09:05→15:53)
[2021-04-20] MEDS: Isosorbide MONOnitrate (24 HR) 60 MG TAB.ER.24H PO SCH (09:05)
[2021-04-20] MEDS: Nicotine 14 MG PATCH.TD24 TD SCH (09:08)
[2021-04-20 09:35] LABS: INR 1.3; Prothrombin Time 14.4 Seconds (9.4-12.1)
[2021-04-20] MEDS: Budesonide/Formoterol 160/4.5 1 PUFF INH IH SCH ×2 (10:50→21:58)
[2021-04-20] MEDS ORDERED: 0.9 % Sodium Chloride 2,000 ML ONE (11:35)
[2021-04-20] MEDS ORDERED: *HR* FentaNYL (PF) 100 MCG/2 ML VIAL ONE (11:35)
[2021-04-20] MEDS ORDERED: *HR* Midazolam HCl 2 MG/2 ML VIAL ONE (11:35)
[2021-04-20] MEDS ORDERED: ISOVUE-370 200 ML INFUS..BTL ONE (11:36)
[2021-04-20] MEDS ORDERED: Nitroglycerin 1,000 MCG/5 ML VIAL IV ONE (11:36)
[2021-04-20] MEDS ORDERED: Heparin 1,000 UNITS/500 mL 500 ML ONE (11:36)
[2021-04-20] MEDS ORDERED: *HR* Heparin 10,000 UNIT/10 ML VIAL ONE (11:36)
[2021-04-20] MEDS ORDERED: 0.9 % Sodium Chloride 1,000 ML IVC ONE (12:51)
[2021-04-20] MEDS: Azithromycin 500 MG in 0.9 % Sodium Chloride 250 ML IVPB SCH (17:41)
[2021-04-20] MEDS: predniSONE 20 MG TABLET PO SCH (17:41)
[2021-04-20] MEDS ORDERED: Warfarin perPT PO PRN (18:00)
[2021-04-20] MEDS ORDERED: *HR* Warfarin 3 MG TABLET PO ONE (18:00)
[2021-04-20] MEDS: QUEtiapine Fumarate 100 MG TABLET PO SCH (21:15)
[2021-04-21] MEDS: Gabapentin 400 MG CAPSULE PO SCH ×4 (00:26→20:25)
[2021-04-21] MEDS: Heparin 25,000UNIT/250ML 1/2NS 25,000 UNIT/250 ML IV.SOLN IVC SCH (01:03)
[2021-04-21 04:35] LABS: INR 1.1; Prothrombin Time 13.2 Seconds (9.4-12.1)
[2021-04-21] MEDS: Insulin LISPRO 300 UNITS/3 ML VIAL SUBQ SCH ×4 (08:52→20:15)
[2021-04-21] MEDS: lisinopriL 5 MG TABLET PO SCH (09:01)
[2021-04-21] MEDS: Metoprolol XL (24 HR) Succ 25 MG TAB.ER.24H PO SCH ×2 (09:03→20:13)
[2021-04-21] MEDS: Isosorbide MONOnitrate (24 HR) 60 MG TAB.ER.24H PO SCH (09:03)
[2021-04-21] MEDS: Celecoxib 100 MG CAPSULE PO SCH ×2 (09:03→20:13)
[2021-04-21] MEDS: Aspirin Enteric Coated 81 MG Tablet PO SCH (09:03)
[2021-04-21] MEDS: Divalproex (12 HR) 500 MG TABLET PO SCH ×2 (09:03→20:12)
[2021-04-21] MEDS: Furosemide 20 MG TABLET PO SCH (09:03)
[2021-04-21] MEDS: predniSONE 20 MG TABLET PO SCH (09:03)
[2021-04-21] MEDS: Ranolazine 500 MG TAB.ER.12H PO SCH ×2 (09:03→20:24)
[2021-04-21] MEDS: FLUoxetine 20 MG CAPSULE PO SCH (09:03)
[2021-04-21] MEDS: Nicotine 14 MG PATCH.TD24 TD SCH (09:06)
[2021-04-21] MEDS: Budesonide/Formoterol 160/4.5 1 PUFF INH IH SCH ×2 (09:44→20:26)
[2021-04-21] MEDS: Azithromycin 500 MG in 0.9 % Sodium Chloride 250 ML IVPB SCH (17:14)
[2021-04-21] MEDS ORDERED: *HR* Warfarin 5 MG TABLET PO ONE (18:00)
[2021-04-21] MEDS: QUEtiapine Fumarate 100 MG TABLET PO SCH (20:12)
[2021-04-21] MEDS: Insulin NPH/REG 70/30 100 UNIT/ML (x5UNIT) SUBQ SCH (20:15)
[2021-04-22] MEDS: Heparin 25,000UNIT/250ML 1/2NS 25,000 UNIT/250 ML IV.SOLN IVC SCH (04:03)
[2021-04-22 04:44] LABS: Heparin anti-factor XA UFH 0.44 IU/mL (0.30-0.70); INR 1.4
[2021-04-22] MEDS: Insulin LISPRO 300 UNITS/3 ML VIAL SUBQ SCH ×4 (07:28→21:19)
[2021-04-22] MEDS: FLUoxetine 20 MG CAPSULE PO SCH (07:37)
[2021-04-22] MEDS: Aspirin Enteric Coated 81 MG Tablet PO SCH (07:38)
[2021-04-22] MEDS: Ranolazine 500 MG TAB.ER.12H PO SCH ×2 (07:38→21:16)
[2021-04-22] MEDS: Divalproex (12 HR) 500 MG TABLET PO SCH ×2 (07:38→21:16)
[2021-04-22] MEDS: Isosorbide MONOnitrate (24 HR) 60 MG TAB.ER.24H PO SCH (07:38)
[2021-04-22] MEDS: Gabapentin 400 MG CAPSULE PO SCH ×3 (07:38→21:16)
[2021-04-22] MEDS: Metoprolol XL (24 HR) Succ 25 MG TAB.ER.24H PO SCH ×2 (07:38→21:17)
[2021-04-22] MEDS: predniSONE 20 MG TABLET PO SCH (07:38)
[2021-04-22] MEDS: Celecoxib 100 MG CAPSULE PO SCH ×2 (07:38→21:16)
[2021-04-22] MEDS: Furosemide 20 MG TABLET PO SCH (07:38)
[2021-04-22] MEDS: lisinopriL 5 MG TABLET PO SCH (07:38)
[2021-04-22] MEDS: Nicotine 14 MG PATCH.TD24 TD SCH (07:41)
[2021-04-22] MEDS: Insulin NPH/REG 70/30 100 UNIT/ML (x5UNIT) SUBQ SCH ×2 (07:43→21:21)
[2021-04-22] MEDS: Budesonide/Formoterol 160/4.5 1 PUFF INH IH SCH ×2 (07:54→20:11)
[2021-04-22] MEDS ORDERED: *HR* Warfarin 3 MG TABLET PO ONE (18:00)
[2021-04-22] MEDS: Azithromycin 500 MG in 0.9 % Sodium Chloride 250 ML IVPB SCH (18:23)
[2021-04-22] MEDS: QUEtiapine Fumarate 100 MG TABLET PO SCH (21:16)
[2021-04-23 04:43] LABS: Hematocrit 32.2 % (35.3-44.9); Mean Corpuscular HGB Conc 31.1 g/dL (31.6-35.5); Mean Corpuscular Hemoglobin 26.2 pg (28.0-33.3); Mean Corpuscular Volume 84.3 fL (83.0-100.0); Mean Platelet Volume 9.9 fL (9.4-12.4); Platelet Count 300 K/mcL (140-400); Red Blood Count 3.82 M/mcL (3.82-4.97); Red Cell Distribution Width 19.8 % (11.5-14.5); White Blood Count 11.4 K/mcL (4.3-11.1)
[2021-04-23 04:47] LABS: INR 2.1; Prothrombin Time 23.3 Seconds (9.4-12.1)
[2021-04-23] MEDS: Heparin 25,000UNIT/250ML 1/2NS 25,000 UNIT/250 ML IV.SOLN IVC SCH (05:02)
[2021-04-23 07:36] VITALS: BP 130/82; PULSE 76; TEMP 97.4; O2SAT 95
[2021-04-23] MEDS: Budesonide/Formoterol 160/4.5 1 PUFF INH IH SCH (07:46)
[2021-04-23] MEDS: Ranolazine 500 MG TAB.ER.12H PO SCH (08:09)
[2021-04-23] MEDS: FLUoxetine 20 MG CAPSULE PO SCH (08:09)
[2021-04-23] MEDS: Gabapentin 400 MG CAPSULE PO SCH (08:11)
[2021-04-23] MEDS: predniSONE 20 MG TABLET PO SCH (08:11)
[2021-04-23] MEDS: Aspirin Enteric Coated 81 MG Tablet PO SCH (08:12)
[2021-04-23] MEDS: Metoprolol XL (24 HR) Succ 25 MG TAB.ER.24H PO SCH (08:12)
[2021-04-23] MEDS: Divalproex (12 HR) 500 MG TABLET PO SCH (08:12)
[2021-04-23] MEDS: Isosorbide MONOnitrate (24 HR) 60 MG TAB.ER.24H PO SCH (08:12)
[2021-04-23] MEDS: Furosemide 20 MG TABLET PO SCH (08:13)
[2021-04-23] MEDS: lisinopriL 5 MG TABLET PO SCH (08:13)
[2021-04-23] MEDS: Nicotine 14 MG PATCH.TD24 TD SCH (08:14)
[2021-04-23] MEDS: Celecoxib 100 MG CAPSULE PO SCH (08:14)
[2021-04-23] MEDS: Insulin LISPRO 300 UNITS/3 ML VIAL SUBQ SCH (08:24)
[2021-04-23] MEDS: Insulin NPH/REG 70/30 100 UNIT/ML (x5UNIT) SUBQ SCH (08:24)
== END 2021-04-23 11:42 | disposition home or self-care (01) | DRG 287 ==
LOC: 3BNU 14:22 → EMEROOARM 14:22 → SUATTDRO 16:55 → 3BNU 18:11 → SUATTDRO 04-19 15:20
PROVIDERS: ADMIT Internal Medicine; ATTEND Nurse Practitioner

== ENCOUNTER 2021-05-07 21:56 | Observation (INO) ==
[2021-05-08] MEDS ORDERED: Perflutren Lipid Microsphere 1.3 ML in 0.9 % Sodium Chloride 8.7 ML IVP PRN (01:46)
[2021-05-08 03:15] LABS: Bilirubin,Urine Negative (Negative); Blood,Urine Moderate (Negative); Clarity,Urine Turbid (Clear); Color,Urine Yellow (Yellow); Glucose,Urine (UA) Normal (Normal); Ketones,Urine Negative (Negative); Leukocyte Esterase,Urine Large (Negative); Mucus,Urine Few per lpf (None-Few); Nitrite,Urine Negative (Negative); PH,Urine 7.5 pH Units (5.0-8.0); Protein,Urine 100 mg/dL (Neg-Trace); RBC,Urine TNTC per hpf (0-3); Specific Gravity,Urine > 1.030 (1.010-1.025); Squamous Epithelial Cell,Urine Moderate per hpf (None-Few); Urobilinogen,Urine Normal (Normal); WBC,Urine TNTC per hpf (0-3)
[2021-05-08 03:17] LABS: Hemoglobin 10.5 g/dL (11.5-15.4); Mean Corpuscular HGB Conc 30.9 g/dL (31.6-35.5); Mean Corpuscular Hemoglobin 25.9 pg (28.0-33.3); Mean Corpuscular Volume 83.7 fL (83.0-100.0); Platelet Count 256 K/mcL (140-400); Red Blood Count 4.06 M/mcL (3.82-4.97); Red Cell Distribution Width 19.1 % (11.5-14.5)
[2021-05-08] MEDS ORDERED: Ipratropium/Albuterol Neb 3 ML IH PRN (03:19)
[2021-05-08] MEDS ORDERED: D5% in Water 1,000 ML IVC PRN (03:20)
[2021-05-08] MEDS ORDERED: Dextrose Gel 15 GM/37.5 ML TUBE PO PRN ×2 (03:20)
[2021-05-08] MEDS ORDERED: *HR* Dextrose 50 % in Water (Vial) 50 ML VIAL IVP PRN (03:20)
[2021-05-08 03:26] LABS: INR 1.4; Prothrombin Time 15.5 Seconds (9.4-12.1)
[2021-05-08 03:35] LABS: Amphetamine Screen,Urine Negative ng/mL (Cutoff=1000); Barbiturate Screen,Urine Positive ng/mL (Cutoff=200); Benzodiazepines Screen,Urine Negative ng/mL (Cutoff=200); Cannabinoid Screen,Urine Positive ng/mL (Cutoff = 50); Cocaine Screen,Urine Negative ng/mL (Cutoff= 300); Opiate Screen,Urine Negative ng/mL (Cutoff=300); Phencyclidine Screen,Urine Negative ng/mL (Cutoff=25)
[2021-05-08 03:38] LABS: Alanine Aminotransferase 19 Units/L (7-52); Albumin 3.5 g/dL (3.5-5.7); Albumin/Globulin Ratio 1.4 (1.1-2.2); Alkaline Phosphatase 99 Units/L (34-104); Aspartate Amino Transferase 16 Units/L (13-39); BUN/Creatinine Ratio 17 (6-26); Bilirubin,Total 0.3 mg/dL (0.3-1.0); Blood Urea Nitrogen 12 mg/dL (6-20); Calcium 8.6 mg/dL (8.6-10.3); Carbon Dioxide 25 mEq/L (23-29); Chloride 103 mEq/L (98-107); Chol/HDL Ratio 3.8 (0-4.9); Cholesterol 166 mg/dL (< 200); Globulin 2.5 g/dL (2.4-3.5); Glucose 121 mg/dL (70-105); HDL Cholesterol 44 mg/dL (40-59); LDL Cholesterol,Calculated 90 mg/dL (< 100); Osmolality,Calculated 283 (280-300); Potassium 4.3 mEq/L (3.5-5.1); Sodium 136 mEq/L (136-145); Triglycerides 158 mg/dL (< 150); Troponin I < 0.03 ng/mL (< 0.04); eGFR For African Americans > 60 (> 60); eGFR For Non-African Americans > 60 (> 60)
[2021-05-08 04:35] LABS: Estimated Average Glucose 160 mg/dl; Hemoglobin A1C 7.2 %
[2021-05-08] MEDS ORDERED: Aspirin 325 MG TABLET PO ONE (05:42)
[2021-05-08] MEDS: Insulin LISPRO 300 UNITS/3 ML VIAL SUBQ SCH ×3 (07:02→18:06)
[2021-05-08] MEDS ORDERED: Aspirin Enteric Coated 81 MG Tablet PO SCH (09:00)
[2021-05-08] MEDS: cefTRIAXone 1,000 MG in 0.9 % Sodium Chloride Mini Bag 100 ML IVPB SCH (10:08)
[2021-05-08] MEDS: Gabapentin 400 MG CAPSULE PO SCH ×2 (15:55→21:04)
[2021-05-08] MEDS ORDERED: Menthol 1 EACH LOZENGE PO PRN (18:49)
[2021-05-08] MEDS: Budesonide/Formoterol 160/4.5 1 PUFF INH IH SCH (19:47)
[2021-05-08] MEDS: Divalproex (12 HR) 500 MG TABLET PO SCH (21:04)
[2021-05-08] MEDS: Ranolazine 500 MG TAB.ER.12H PO SCH (21:04)
[2021-05-08] MEDS: Celecoxib 100 MG CAPSULE PO SCH (21:06)
[2021-05-08] MEDS: Metoprolol XL (24 HR) Succ 25 MG TAB.ER.24H PO SCH (21:06)
[2021-05-08] MEDS: Melatonin 3 MG TABLET PO PRN (21:06)
[2021-05-08] MEDS: tiZANidine 4 MG TABLET PO PRN (21:06)
[2021-05-08] MEDS: QUEtiapine Fumarate 100 MG TABLET PO SCH (22:43)
[2021-05-09] MEDS: Insulin LISPRO 300 UNITS/3 ML VIAL SUBQ SCH ×4 (04:50→17:28)
[2021-05-09] MEDS: Budesonide/Formoterol 160/4.5 1 PUFF INH IH SCH ×2 (07:23→20:16)
[2021-05-09] MEDS: Metoprolol XL (24 HR) Succ 25 MG TAB.ER.24H PO SCH ×2 (08:10→20:54)
[2021-05-09] MEDS: Divalproex (12 HR) 500 MG TABLET PO SCH ×2 (08:10→20:54)
[2021-05-09] MEDS: Gabapentin 400 MG CAPSULE PO SCH ×3 (08:11→20:55)
[2021-05-09] MEDS: FLUoxetine 20 MG CAPSULE PO SCH (08:11)
[2021-05-09] MEDS: Celecoxib 100 MG CAPSULE PO SCH ×2 (08:11→20:55)
[2021-05-09] MEDS: Ranolazine 500 MG TAB.ER.12H PO SCH ×2 (08:11→20:54)
[2021-05-09] MEDS: Isosorbide MONOnitrate (24 HR) 30 MG TAB.ER.24H PO SCH (08:11)
[2021-05-09] MEDS: lisinopriL 5 MG TABLET PO SCH (08:11)
[2021-05-09 10:56] LABS: Hematocrit 34.8 % (35.3-44.9); Hemoglobin 10.6 g/dL (11.5-15.4); Mean Corpuscular HGB Conc 30.5 g/dL (31.6-35.5); Mean Corpuscular Hemoglobin 25.9 pg (28.0-33.3); Mean Corpuscular Volume 84.9 fL (83.0-100.0); Mean Platelet Volume 9.8 fL (9.4-12.4); Platelet Count 241 K/mcL (140-400); White Blood Count 6.6 K/mcL (4.3-11.1)
[2021-05-09 11:06] LABS: INR 1.2; Prothrombin Time 13.4 Seconds (9.4-12.1)
[2021-05-09] MEDS: cefTRIAXone 1,000 MG in 0.9 % Sodium Chloride Mini Bag 100 ML IVPB SCH (11:07)
[2021-05-09 11:10] LABS: BUN/Creatinine Ratio 21 (6-26); Blood Urea Nitrogen 13 mg/dL (6-20); Calcium 8.9 mg/dL (8.6-10.3); Carbon Dioxide 24 mEq/L (23-29); Chloride 103 mEq/L (98-107); Glucose 150 mg/dL (70-105); Osmolality,Calculated 287 (280-300); Potassium 4.5 mEq/L (3.5-5.1); Sodium 137 mEq/L (136-145); eGFR For African Americans > 60 (> 60); eGFR For Non-African Americans > 60 (> 60)
[2021-05-09 12:37] LABS: C.difficile Toxin A/B Gene PCR Not detected (Not detect); Campylobacter by PCR Not detected (Not detect); Enteroaggregative E.coli(EAEC) Not detected (Not detect); Enteropathogenic E.coli(EPEC) Not detected (Not detect); Enterotoxigenic E.coli (ETEC) Not detected (Not detect); Plesiomonas shigelloides PCR Not detected (Not detect); Salmonella PCR Not detected (Not detect); Vibrio PCR Not detected (Not detect); Vibrio cholerae PCR Not detected (Not detect); Yersinia enterocolitica PCR Not detected (Not detect)
[2021-05-09 12:38] LABS: Adenovirus F 40/41 PCR Not detected (Not detect); Astrovirus PCR Not detected (Not detect); Cryptosporidium by PCR Not detected (Not detect); Cyclospora cayetanensis PCR Not detected (Not detect); E. coli O157 by PCR Not detected (Not detect); Entamoeba histolytica PCR Not detected (Not detect); Giardia lamblia PCR Not detected (Not detect); Norovirus GI/GII PCR Not detected (Not detect); Rotavirus A PCR Not detected (Not detect); Sapovirus PCR Not detected (Not detect); Shig/EnteroinvasiveE coli EIEC Not detected (Not detect)
[2021-05-09 12:39] LABS: Shigalike tox-prod E coli STEC DETECTED (Not detect)
[2021-05-09] MEDS: tiZANidine 4 MG TABLET PO PRN ×2 (17:33→21:18)
[2021-05-09] MEDS: QUEtiapine Fumarate 100 MG TABLET PO SCH (20:55)
[2021-05-09] MEDS: Melatonin 3 MG TABLET PO PRN (21:18)
[2021-05-10] MEDS: Insulin LISPRO 300 UNITS/3 ML VIAL SUBQ SCH ×4 (02:05→17:15)
[2021-05-10 05:04] LABS: Hematocrit 32.7 % (35.3-44.9); Mean Corpuscular HGB Conc 30.6 g/dL (31.6-35.5); Mean Corpuscular Hemoglobin 25.9 pg (28.0-33.3); Mean Corpuscular Volume 84.7 fL (83.0-100.0); Mean Platelet Volume 9.6 fL (9.4-12.4); Platelet Count 232 K/mcL (140-400); Red Blood Count 3.86 M/mcL (3.82-4.97); Red Cell Distribution Width 18.8 % (11.5-14.5); White Blood Count 8.1 K/mcL (4.3-11.1)
[2021-05-10 05:22] LABS: Alanine Aminotransferase 17 Units/L (7-52); Albumin 3.3 g/dL (3.5-5.7); Albumin/Globulin Ratio 1.4 (1.1-2.2); Alkaline Phosphatase 83 Units/L (34-104); Aspartate Amino Transferase 13 Units/L (13-39); BUN/Creatinine Ratio 26 (6-26); Bilirubin,Total 0.3 mg/dL (0.3-1.0); Blood Urea Nitrogen 18 mg/dL (6-20); Calcium 8.5 mg/dL (8.6-10.3); Carbon Dioxide 25 mEq/L (23-29); Chloride 104 mEq/L (98-107); Globulin 2.4 g/dL (2.4-3.5); Glucose 127 mg/dL (70-105); Magnesium 1.7 mg/dL (1.6-2.6); Osmolality,Calculated 287 (280-300); Potassium 4.4 mEq/L (3.5-5.1); Sodium 137 mEq/L (136-145); Total Protein 5.7 g/dL (6.4-8.9); eGFR For African Americans > 60 (> 60); eGFR For Non-African Americans > 60 (> 60)
[2021-05-10] MEDS: Ertapenem 1,000 MG in 0.9 % Sodium Chloride Mini Bag 100 ML IVPB SCH (07:59)
[2021-05-10] MEDS: Celecoxib 100 MG CAPSULE PO SCH ×2 (08:03→20:35)
[2021-05-10] MEDS: lisinopriL 5 MG TABLET PO SCH (08:03)
[2021-05-10] MEDS: Isosorbide MONOnitrate (24 HR) 30 MG TAB.ER.24H PO SCH (08:03)
[2021-05-10] MEDS: Divalproex (12 HR) 500 MG TABLET PO SCH ×2 (08:03→20:34)
[2021-05-10] MEDS: FLUoxetine 20 MG CAPSULE PO SCH (08:04)
[2021-05-10] MEDS: Ranolazine 500 MG TAB.ER.12H PO SCH ×2 (08:04→20:36)
[2021-05-10] MEDS: Gabapentin 400 MG CAPSULE PO SCH ×3 (08:04→20:35)
[2021-05-10] MEDS: Metoprolol XL (24 HR) Succ 25 MG TAB.ER.24H PO SCH ×2 (08:04→20:35)
[2021-05-10] MEDS ORDERED: Ondansetron 4 MG/2 ML VIAL IVP PRN (09:57)
[2021-05-10] MEDS: Budesonide/Formoterol 160/4.5 1 PUFF INH IH SCH ×2 (10:06→19:34)
[2021-05-10] MEDS ORDERED: Isovue-370 500 ML BOTTLE IVP ONE (10:39)
[2021-05-10] MEDS: tiZANidine 4 MG TABLET PO PRN ×2 (12:39→20:39)
[2021-05-10] MEDS ORDERED: Isovue-370 500 ML BOTTLE PO ONE (12:59)
[2021-05-10] MEDS: Lactobacillus 1 EACH CAP.SPRINK PO SCH (20:35)
[2021-05-10] MEDS: QUEtiapine Fumarate 100 MG TABLET PO SCH (20:35)
[2021-05-10] MEDS: Melatonin 3 MG TABLET PO PRN (22:06)
[2021-05-11] MEDS: Insulin LISPRO 300 UNITS/3 ML VIAL SUBQ SCH ×4 (03:31→16:18)
[2021-05-11 05:53] LABS: Hematocrit 31.8 % (35.3-44.9); Hemoglobin 10.2 g/dL (11.5-15.4); Mean Corpuscular HGB Conc 32.1 g/dL (31.6-35.5); Mean Corpuscular Hemoglobin 26.8 pg (28.0-33.3); Mean Corpuscular Volume 83.7 fL (83.0-100.0); Mean Platelet Volume 9.8 fL (9.4-12.4); Platelet Count 230 K/mcL (140-400); Red Cell Distribution Width 18.7 % (11.5-14.5); White Blood Count 6.5 K/mcL (4.3-11.1)
[2021-05-11 06:20] LABS: BUN/Creatinine Ratio 24 (6-26); Blood Urea Nitrogen 18 mg/dL (6-20); Calcium 8.7 mg/dL (8.6-10.3); Carbon Dioxide 25 mEq/L (23-29); Chloride 103 mEq/L (98-107); Glucose 125 mg/dL (70-105); Osmolality,Calculated 285 (280-300); Potassium 4.4 mEq/L (3.5-5.1); Sodium 136 mEq/L (136-145); eGFR For African Americans > 60 (> 60); eGFR For Non-African Americans > 60 (> 60)
[2021-05-11] MEDS: Ranolazine 500 MG TAB.ER.12H PO SCH ×2 (07:27→19:26)
[2021-05-11] MEDS: Ertapenem 1,000 MG in 0.9 % Sodium Chloride Mini Bag 100 ML IVPB SCH (07:27)
[2021-05-11] MEDS: Divalproex (12 HR) 500 MG TABLET PO SCH ×2 (07:29→19:25)
[2021-05-11] MEDS: Gabapentin 400 MG CAPSULE PO SCH ×3 (07:30→19:26)
[2021-05-11] MEDS: Lactobacillus 1 EACH CAP.SPRINK PO SCH ×2 (07:30→19:26)
[2021-05-11] MEDS: Isosorbide MONOnitrate (24 HR) 30 MG TAB.ER.24H PO SCH (07:30)
[2021-05-11] MEDS: FLUoxetine 20 MG CAPSULE PO SCH (07:30)
[2021-05-11] MEDS: lisinopriL 5 MG TABLET PO SCH (07:31)
[2021-05-11] MEDS: Celecoxib 100 MG CAPSULE PO SCH ×2 (07:32→19:27)
[2021-05-11] MEDS: Metoprolol XL (24 HR) Succ 25 MG TAB.ER.24H PO SCH ×2 (07:32→19:25)
[2021-05-11] MEDS: Budesonide/Formoterol 160/4.5 1 PUFF INH IH SCH ×2 (07:41→19:39)
[2021-05-11] MEDS: tiZANidine 4 MG TABLET PO PRN (13:46)
[2021-05-11] MEDS: QUEtiapine Fumarate 100 MG TABLET PO SCH (19:26)
[2021-05-11] MEDS: Melatonin 3 MG TABLET PO PRN (23:24)
[2021-05-12 01:27] LABS: Mean Corpuscular HGB Conc 31.3 g/dL (31.6-35.5); Mean Corpuscular Hemoglobin 26.6 pg (28.0-33.3); Mean Corpuscular Volume 85.1 fL (83.0-100.0); Mean Platelet Volume 9.6 fL (9.4-12.4); Platelet Count 240 K/mcL (140-400); Red Blood Count 3.76 M/mcL (3.82-4.97); Red Cell Distribution Width 18.7 % (11.5-14.5); White Blood Count 6.4 K/mcL (4.3-11.1)
[2021-05-12 01:49] LABS: BUN/Creatinine Ratio 18 (6-26); Blood Urea Nitrogen 18 mg/dL (6-20); Calcium 8.5 mg/dL (8.6-10.3); Carbon Dioxide 27 mEq/L (23-29); Chloride 103 mEq/L (98-107); Glucose 126 mg/dL (70-105); Osmolality,Calculated 287 (280-300); Potassium 4.4 mEq/L (3.5-5.1); Sodium 137 mEq/L (136-145); eGFR For African Americans > 60 (> 60); eGFR For Non-African Americans 58 (> 60)
[2021-05-12] MEDS: Budesonide/Formoterol 160/4.5 1 PUFF INH IH SCH ×2 (07:16→22:40)
[2021-05-12] MEDS: Insulin LISPRO 300 UNITS/3 ML VIAL SUBQ SCH ×3 (07:21→16:27)
[2021-05-12] MEDS: Ranolazine 500 MG TAB.ER.12H PO SCH ×2 (07:34→20:08)
[2021-05-12] MEDS: Gabapentin 400 MG CAPSULE PO SCH ×3 (07:34→20:07)
[2021-05-12] MEDS: lisinopriL 5 MG TABLET PO SCH (07:35)
[2021-05-12] MEDS: Lactobacillus 1 EACH CAP.SPRINK PO SCH ×2 (07:36→20:08)
[2021-05-12] MEDS: Celecoxib 100 MG CAPSULE PO SCH ×2 (07:36→20:07)
[2021-05-12] MEDS: Divalproex (12 HR) 500 MG TABLET PO SCH ×2 (07:36→20:07)
[2021-05-12] MEDS: FLUoxetine 20 MG CAPSULE PO SCH (07:36)
[2021-05-12] MEDS: Metoprolol XL (24 HR) Succ 25 MG TAB.ER.24H PO SCH ×2 (07:36→20:10)
[2021-05-12] MEDS: Isosorbide MONOnitrate (24 HR) 30 MG TAB.ER.24H PO SCH (07:36)
[2021-05-12] MEDS: Ertapenem 1,000 MG in 0.9 % Sodium Chloride Mini Bag 100 ML IVPB SCH (07:37)
[2021-05-12] MEDS: tiZANidine 4 MG TABLET PO PRN ×2 (14:32→22:35)
[2021-05-12] MEDS: Acetaminophen 325 MG TABLET PO PRN (17:32)
[2021-05-12] MEDS: QUEtiapine Fumarate 100 MG TABLET PO SCH (20:07)
[2021-05-13 06:56] LABS: Hematocrit 31.5 % (35.3-44.9); Hemoglobin 10.2 g/dL (11.5-15.4); Mean Corpuscular HGB Conc 32.4 g/dL (31.6-35.5); Mean Corpuscular Volume 83.3 fL (83.0-100.0); Mean Platelet Volume 9.7 fL (9.4-12.4); Platelet Count 238 K/mcL (140-400); Red Blood Count 3.78 M/mcL (3.82-4.97); Red Cell Distribution Width 18.5 % (11.5-14.5); White Blood Count 6.2 K/mcL (4.3-11.1)
[2021-05-13 07:22] LABS: BUN/Creatinine Ratio 24 (6-26); Blood Urea Nitrogen 19 mg/dL (6-20); Calcium 8.5 mg/dL (8.6-10.3); Carbon Dioxide 24 mEq/L (23-29); Chloride 105 mEq/L (98-107); Glucose 119 mg/dL (70-105); Osmolality,Calculated 287 (280-300); Potassium 4.3 mEq/L (3.5-5.1); Sodium 137 mEq/L (136-145); eGFR For African Americans > 60 (> 60); eGFR For Non-African Americans > 60 (> 60)
[2021-05-13] MEDS: Insulin LISPRO 300 UNITS/3 ML VIAL SUBQ SCH ×3 (07:22→17:02)
[2021-05-13] MEDS: Budesonide/Formoterol 160/4.5 1 PUFF INH IH SCH ×2 (07:45→22:14)
[2021-05-13] MEDS: FLUoxetine 20 MG CAPSULE PO SCH (09:04)
[2021-05-13] MEDS: Gabapentin 400 MG CAPSULE PO SCH ×3 (09:04→21:09)
[2021-05-13] MEDS: Ranolazine 500 MG TAB.ER.12H PO SCH ×2 (09:05→21:09)
[2021-05-13] MEDS: Divalproex (12 HR) 500 MG TABLET PO SCH ×2 (09:05→21:08)
[2021-05-13] MEDS: Lactobacillus 1 EACH CAP.SPRINK PO SCH ×2 (09:05→21:08)
[2021-05-13] MEDS: Isosorbide MONOnitrate (24 HR) 30 MG TAB.ER.24H PO SCH (09:06)
[2021-05-13] MEDS: Celecoxib 100 MG CAPSULE PO SCH ×2 (09:06→21:08)
[2021-05-13] MEDS: lisinopriL 5 MG TABLET PO SCH (09:06)
[2021-05-13] MEDS: Metoprolol XL (24 HR) Succ 25 MG TAB.ER.24H PO SCH ×2 (09:06→21:09)
[2021-05-13] MEDS: tiZANidine 4 MG TABLET PO PRN ×2 (12:13→21:10)
[2021-05-13] MEDS: Acetaminophen 325 MG TABLET PO PRN (15:19)
[2021-05-13] MEDS: Aspirin 81 MG TAB.CHEW PO SCH (17:01)
[2021-05-13] MEDS: QUEtiapine Fumarate 100 MG TABLET PO SCH (21:08)
[2021-05-14] MEDS ORDERED: *HR* Enoxaparin 40 MG/0.4 ML SYRINGE SQ SCH (06:00)
[2021-05-14] MEDS: Budesonide/Formoterol 160/4.5 1 PUFF INH IH SCH (08:01)
[2021-05-14] MEDS: Insulin LISPRO 300 UNITS/3 ML VIAL SUBQ SCH ×2 (08:33→12:26)
[2021-05-14] MEDS: Lactobacillus 1 EACH CAP.SPRINK PO SCH (08:41)
[2021-05-14] MEDS: FLUoxetine 20 MG CAPSULE PO SCH (08:41)
[2021-05-14] MEDS: Aspirin 81 MG TAB.CHEW PO SCH (08:41)
[2021-05-14] MEDS: Ranolazine 500 MG TAB.ER.12H PO SCH (08:42)
[2021-05-14] MEDS: Isosorbide MONOnitrate (24 HR) 30 MG TAB.ER.24H PO SCH (08:42)
[2021-05-14] MEDS: Metoprolol XL (24 HR) Succ 25 MG TAB.ER.24H PO SCH (08:42)
[2021-05-14] MEDS: Gabapentin 400 MG CAPSULE PO SCH (08:42)
[2021-05-14] MEDS: Divalproex (12 HR) 500 MG TABLET PO SCH (08:42)
[2021-05-14] MEDS: Celecoxib 100 MG CAPSULE PO SCH (08:42)
[2021-05-14] MEDS: lisinopriL 5 MG TABLET PO SCH (08:42)
[2021-05-14 11:09] LABS: Adenovirus Not Detected (Not Detect); Bordetella Pertussis Not Detected (Not Detect); Chlamydophila pneumoniae Not Detected (Not Detect); Coronavirus 229E Not Detected (Not Detect); Coronavirus HKU1 Not Detected (Not Detect); Coronavirus NL63 Not Detected (Not Detect); Coronavirus OC43 Not Detected (Not Detect); Human Metapneumovirus Not Detected (Not Detect); Human Rhinovirus/Enterovirus Not Detected (Not Detect); Influenza A Subtype 2009 H1 Not Detected (Not Detect); Influenza B Not Detected (Not Detect); Mycoplasma pneumoniae Not Detected (Not Detect); Parainfluenza Virus 1 Not Detected (Not Detect); Parainfluenza Virus 2 Not Detected (Not Detect); Parainfluenza Virus 3 Not Detected (Not Detect); Parainfluenza Virus 4 Not Detected (Not Detect); Respiratory Syncytial Virus Not Detected (Not Detect); SARS-CoV-2 Not Detected (Not Detect)
[2021-05-14 11:29] VITALS: BP 108/67; PULSE 78; TEMP 98.4; O2SAT 96
[2021-05-14] MEDS: tiZANidine 4 MG TABLET PO PRN (16:08)
== END 2021-05-14 16:54 | disposition other institution (70) ==
LOC: 3ANU → SUATTDRO 05-08 01:20 → CDU 05-08 03:31 → 3BNU 05-09 13:25
PROVIDERS: ADMIT Student in an Organized Health Care Education/Training Program; ATTEND Registered Nurse

== ENCOUNTER 2021-08-28 21:03 | Inpatient (IN) ==
[2021-08-28] MEDS ORDERED: Naloxone 0.4 MG/ML INJ IVP PRN (23:32)
[2021-08-28] MEDS ORDERED: Dextrose Gel 15 GM/37.5 ML TUBE PO PRN ×2 (23:57)
[2021-08-28] MEDS ORDERED: D5% in Water 1,000 ML IVC PRN (23:57)
[2021-08-28] MEDS ORDERED: Perflutren Lipid Microsphere 1.3 ML in 0.9 % Sodium Chloride 8.7 ML IVP PRN (23:57)
[2021-08-28] MEDS ORDERED: *HR* Dextrose 50 % in Water (Syg) 50 ML SYRINGE IVP PRN (23:57)
[2021-08-29] MEDS: Ondansetron 4 MG/2 ML VIAL IVP PRN (00:16)
[2021-08-29 01:05] LABS: Hematocrit 34.1 % (35.3-44.9); Hemoglobin 10.5 g/dL (11.5-15.4); Mean Corpuscular HGB Conc 30.8 g/dL (31.6-35.5); Mean Corpuscular Hemoglobin 24.8 pg (28.0-33.3); Mean Corpuscular Volume 80.4 fL (83.0-100.0); Mean Platelet Volume 10.2 fL (9.4-12.4); Platelet Count 322 K/mcL (140-400); Red Blood Count 4.24 M/mcL (3.82-4.97); Red Cell Distribution Width 18.1 % (11.5-14.5); White Blood Count 9.5 K/mcL (4.3-11.1)
[2021-08-29 01:07] LABS: INR 1.3; Prothrombin Time 14.6 Seconds (9.4-12.1)
[2021-08-29] MEDS: Morphine Sulfate 2 MG/ML SYRINGE IVP PRN ×4 (01:07→22:30)
[2021-08-29 01:10] LABS: Activated Partial Thrombo Time 34.6 Seconds (26.0-36.0)
[2021-08-29 01:19] LABS: Alanine Aminotransferase 23 Units/L (7-52); Albumin 3.2 g/dL (3.5-5.7); Albumin/Globulin Ratio 1.2 (1.1-2.2); Alkaline Phosphatase 93 Units/L (34-104); Aspartate Amino Transferase 36 Units/L (13-39); BUN/Creatinine Ratio 17 (6-26); Bilirubin,Total 0.3 mg/dL (0.3-1.0); Blood Urea Nitrogen 10 mg/dL (6-20); Calcium 8.3 mg/dL (8.6-10.3); Carbon Dioxide 27 mEq/L (23-29); Chloride 103 mEq/L (98-107); Chol/HDL Ratio 3.7 (0-4.9); Cholesterol 174 mg/dL (< 200); Globulin 2.6 g/dL (2.4-3.5); Glucose 174 mg/dL (70-105); HDL Cholesterol 47 mg/dL (40-59); LDL Cholesterol,Calculated 83 mg/dL (< 100); Osmolality,Calculated 285 (280-300); Potassium 5.2 mEq/L (3.5-5.1); Sodium 136 mEq/L (136-145); Total Protein 5.8 g/dL (6.4-8.9); Triglycerides 218 mg/dL (< 150); Troponin I < 0.03 ng/mL (< 0.04); eGFR For African Americans > 60 (> 60); eGFR For Non-African Americans > 60 (> 60)
[2021-08-29] MEDS: Insulin LISPRO 300 UNITS/3 ML VIAL SUBQ SCH ×4 (02:11→17:54)
[2021-08-29] MEDS ORDERED: Ipratropium/Albuterol Neb 3 ML IH PRN (02:32)
[2021-08-29] MEDS ORDERED: Heparin 25,000UNIT/250ML 1/2NS 25,000 UNIT/250 ML IV.SOLN IVC SCH (05:45)
[2021-08-29] MEDS ORDERED: *HR* Heparin 5,000 UNIT/ML VIAL IVP ONE (06:00)
[2021-08-29] MEDS ORDERED: *HR* Heparin 5,000 UNIT/ML VIAL IVP PRN (06:00)
[2021-08-29] MEDS: Heparin 25,000UNIT/250ML 1/2NS 25,000 UNIT/250 ML IV.SOLN IVC SCH (06:27)
[2021-08-29] MEDS: Aspirin Enteric Coated 81 MG Tablet PO SCH (08:42)
[2021-08-29] MEDS: Acetaminophen 325 MG TABLET PO PRN (11:41)
[2021-08-29] MEDS ORDERED: Warfarin perPT PO PRN (18:00)
[2021-08-29] MEDS ORDERED: *HR* Warfarin 5 MG TABLET PO ONE (18:00)
[2021-08-29] MEDS: Gabapentin 400 MG CAPSULE PO SCH (19:48)
[2021-08-29] MEDS: *HR* Heparin 5,000 UNIT/ML VIAL IVP PRN (22:36)
[2021-08-30] MEDS: Insulin LISPRO 300 UNITS/3 ML VIAL SUBQ SCH ×5 (00:54→21:29)
[2021-08-30 01:35] LABS: Hemoglobin 9.8 g/dL (11.5-15.4); Mean Corpuscular HGB Conc 30.6 g/dL (31.6-35.5); Mean Corpuscular Hemoglobin 24.7 pg (28.0-33.3); Mean Corpuscular Volume 80.6 fL (83.0-100.0); Mean Platelet Volume 10.1 fL (9.4-12.4); Platelet Count 261 K/mcL (140-400); Red Blood Count 3.97 M/mcL (3.82-4.97); Red Cell Distribution Width 17.5 % (11.5-14.5); White Blood Count 7.7 K/mcL (4.3-11.1)
[2021-08-30 01:48] LABS: INR 1.1; Prothrombin Time 12.3 Seconds (9.4-12.1)
[2021-08-30 01:53] LABS: BUN/Creatinine Ratio 18 (6-26); Blood Urea Nitrogen 11 mg/dL (6-20); Calcium 8.5 mg/dL (8.6-10.3); Carbon Dioxide 29 mEq/L (23-29); Chloride 102 mEq/L (98-107); Glucose 138 mg/dL (70-105); Osmolality,Calculated 292 (280-300); Potassium 4.3 mEq/L (3.5-5.1); Sodium 140 mEq/L (136-145); eGFR For African Americans > 60 (> 60); eGFR For Non-African Americans > 60 (> 60)
[2021-08-30] MEDS: Morphine Sulfate 2 MG/ML SYRINGE IVP PRN ×2 (03:56→07:59)
[2021-08-30] MEDS: Heparin 25,000UNIT/250ML 1/2NS 25,000 UNIT/250 ML IV.SOLN IVC SCH (08:03)
[2021-08-30] MEDS: Gabapentin 400 MG CAPSULE PO SCH ×3 (08:13→20:27)
[2021-08-30] MEDS: Aspirin Enteric Coated 81 MG Tablet PO SCH (08:13)
[2021-08-30] MEDS: Ondansetron 4 MG/2 ML VIAL IVP PRN (10:39)
[2021-08-30] MEDS: *HR* OxyCODONE/APAP 5/325 TABLET PO PRN ×2 (11:52→20:28)
[2021-08-30] MEDS ORDERED: FLUoxetine 20 MG CAPSULE PO SCH (13:00)
[2021-08-30] MEDS ORDERED: Furosemide 20 MG TABLET PO PRN (13:43)
[2021-08-30] MEDS: Acetaminophen 325 MG TABLET PO PRN (18:17)
[2021-08-30] MEDS: Divalproex (12 HR) 250 MG TABLET PO SCH (20:27)
[2021-08-30] MEDS: FLUoxetine 20 MG CAPSULE PO SCH (20:27)
[2021-08-30] MEDS: tiZANidine 4 MG TABLET PO PRN (20:28)
[2021-08-30] MEDS ORDERED: Divalproex (12 HR) 500 MG TABLET PO SCH (21:00)
[2021-08-31] MEDS: Budesonide/Formoterol 160/4.5 1 PUFF INH IH SCH ×3 (00:13→19:52)
[2021-08-31 00:39] LABS: Hematocrit 31.5 % (35.3-44.9); Hemoglobin 9.6 g/dL (11.5-15.4); Mean Corpuscular HGB Conc 30.5 g/dL (31.6-35.5); Mean Corpuscular Hemoglobin 24.4 pg (28.0-33.3); Mean Corpuscular Volume 80.2 fL (83.0-100.0); Mean Platelet Volume 9.7 fL (9.4-12.4); Platelet Count 237 K/mcL (140-400); Red Blood Count 3.93 M/mcL (3.82-4.97); Red Cell Distribution Width 17.2 % (11.5-14.5); White Blood Count 7.4 K/mcL (4.3-11.1)
[2021-08-31 00:57] LABS: BUN/Creatinine Ratio 14 (6-26); Blood Urea Nitrogen 10 mg/dL (6-20); Calcium 8.6 mg/dL (8.6-10.3); Carbon Dioxide 31 mEq/L (23-29); Chloride 99 mEq/L (98-107); Glucose 208 mg/dL (70-105); Osmolality,Calculated 285 (280-300); Potassium 4.3 mEq/L (3.5-5.1); Sodium 135 mEq/L (136-145); eGFR For African Americans > 60 (> 60); eGFR For Non-African Americans > 60 (> 60)
[2021-08-31 00:59] LABS: Iron 41 mcg/dL (50-170)
[2021-08-31] MEDS: *HR* Heparin 5,000 UNIT/ML VIAL IVP PRN (01:24)
[2021-08-31 01:27] LABS: Folate > 22.3 ng/mL (3.0-16.0); Vitamin B12 343 pg/mL (250-1100)
[2021-08-31 02:22] LABS: Ferritin 14 ng/mL (10-120)
[2021-08-31] MEDS: Insulin LISPRO 300 UNITS/3 ML VIAL SUBQ SCH ×4 (07:24→20:52)
[2021-08-31] MEDS: lisinopriL 5 MG TABLET PO SCH (08:56)
[2021-08-31] MEDS: Aspirin Enteric Coated 81 MG Tablet PO SCH (08:56)
[2021-08-31] MEDS: Divalproex (12 HR) 250 MG TABLET PO SCH ×2 (08:56→20:50)
[2021-08-31] MEDS: Isosorbide MONOnitrate (24 HR) 30 MG TAB.ER.24H PO SCH (08:57)
[2021-08-31] MEDS: Metoprolol XL (24 HR) Succ 25 MG TAB.ER.24H PO SCH (08:57)
[2021-08-31] MEDS: FLUoxetine 20 MG CAPSULE PO SCH ×2 (09:00→20:51)
[2021-08-31] MEDS: Gabapentin 400 MG CAPSULE PO SCH ×3 (09:01→20:51)
[2021-08-31] MEDS: Heparin 25,000UNIT/250ML 1/2NS 25,000 UNIT/250 ML IV.SOLN IVC SCH (09:01)
[2021-08-31 09:28] LABS: Activated Partial Thrombo Time 51.4 Seconds (26.0-36.0)
[2021-08-31 10:20] LABS: Prothrombin Time 11.5 Seconds (9.4-12.1)
[2021-08-31] MEDS ORDERED: Heparin 1,000 UNITS/500 mL 500 ML ONE (10:20)
[2021-08-31] MEDS ORDERED: *HR* FentaNYL (PF) 100 MCG/2 ML VIAL ONE (10:20)
[2021-08-31] MEDS ORDERED: 0.9 % Sodium Chloride 2,000 ML ONE (10:20)
[2021-08-31] MEDS ORDERED: Nitroglycerin 1,000 MCG/5 ML VIAL IV ONE (10:20)
[2021-08-31] MEDS ORDERED: ISOVUE-370 200 ML INFUS..BTL ONE (10:20)
[2021-08-31] MEDS ORDERED: *HR* Midazolam HCl 2 MG/2 ML VIAL ONE (10:20)
[2021-08-31] MEDS ORDERED: *HR* Heparin 10,000 UNIT/10 ML VIAL ONE (10:20)
[2021-08-31] MEDS: *HR* OxyCODONE/APAP 5/325 TABLET PO PRN ×2 (14:37→22:42)
[2021-08-31] MEDS: tiZANidine 4 MG TABLET PO PRN (20:50)
[2021-08-31 22:45] VITALS: O2SAT 97
[2021-09-01] MEDS: tiZANidine 4 MG TABLET PO PRN (05:59)
[2021-09-01 06:32] VITALS: TEMP 98
[2021-09-01] MEDS: *HR* OxyCODONE/APAP 5/325 TABLET PO PRN (06:59)
[2021-09-01] MEDS: Budesonide/Formoterol 160/4.5 1 PUFF INH IH SCH (08:04)
[2021-09-01 10:54] VITALS: BP 126/68; PULSE 78
[2021-09-01] MEDS: FLUoxetine 20 MG CAPSULE PO SCH (10:54)
[2021-09-01] MEDS: Gabapentin 400 MG CAPSULE PO SCH (10:54)
[2021-09-01] MEDS: Metoprolol XL (24 HR) Succ 25 MG TAB.ER.24H PO SCH (10:54)
[2021-09-01] MEDS: Divalproex (12 HR) 250 MG TABLET PO SCH (10:55)
[2021-09-01] MEDS: lisinopriL 5 MG TABLET PO SCH (10:55)
[2021-09-01] MEDS: Isosorbide MONOnitrate (24 HR) 30 MG TAB.ER.24H PO SCH (10:55)
[2021-09-01] MEDS: Aspirin Enteric Coated 81 MG Tablet PO SCH (10:55)
[2021-09-01] MEDS: Insulin LISPRO 300 UNITS/3 ML VIAL SUBQ SCH (11:02)
[2021-09-02 06:28] LABS: % Iron Saturation 12 % (15-50); Transferrin 246 mg/dL (200-400)
== END 2021-09-01 12:13 | disposition home or self-care (01) | DRG 287 ==
LOC: 3NENU → SUATTDRO 23:04
PROVIDERS: ADMIT Student in an Organized Health Care Education/Training Program; ATTEND Internal Medicine

== ENCOUNTER 2022-03-25 12:40 | Observation (INO) ==
[2022-03-25] MEDS ORDERED: Nitroglycerin 1 INCH/GM PACKET TP ONE (13:59)
[2022-03-25 14:12] LABS: Basophils % 0.3 %; Eosinophils # 0.1 K/mcL (0.0-0.6); Eosinophils % 0.9 %; Hematocrit 33.8 % (35.3-44.9); Hemoglobin 9.8 g/dL (11.5-15.4); Immature Granulocytes % 2.2 % (0-4); Lymphocytes # 2.5 K/mcL (0.6-4.6); Lymphocytes % 23.3 %; Mean Corpuscular Hemoglobin 21.6 pg (28.0-33.3); Mean Corpuscular Volume 74.4 fL (83.0-100.0); Mean Platelet Volume 9.2 fL (9.4-12.4); Monocytes # 0.7 K/mcL (0.0-1.3); Monocytes % 6.7 %; Neutrophils # 7.2 K/mcL (1.6-8.9); Nucleated Red Blood Cells 0.2 /100 WBC (0); Platelet Count 331 K/mcL (140-400); Red Blood Count 4.54 M/mcL (3.82-4.97); Red Cell Distribution Width 20.7 % (11.5-14.5); Segmented Neutrophils % 66.6 %; White Blood Count 10.8 K/mcL (4.3-11.1)
[2022-03-25 14:24] LABS: INR 5.6; Prothrombin Time 61.2 Seconds (9.4-12.1)
[2022-03-25 14:40] LABS: BUN/Creatinine Ratio 20 (6-26); Blood Urea Nitrogen 12 mg/dL (6-20); Calcium 7.9 mg/dL (8.6-10.3); Carbon Dioxide 32 mEq/L (23-29); Chloride 104 mEq/L (98-107); Glucose 196 mg/dL (70-105); Osmolality,Calculated 301 (280-300); Potassium 3.5 mEq/L (3.5-5.1); Sodium 143 mEq/L (136-145); Troponin I < 0.03 ng/mL (< 0.04); eGFR For African Americans > 60 (> 60); eGFR For Non-African Americans > 60 (> 60)
[2022-03-25] MEDS ORDERED: Naloxone 0.4 MG/ML INJ IVP PRN (15:16)
[2022-03-25] MEDS ORDERED: Ondansetron 4 MG/2 ML VIAL IVP PRN (15:16)
[2022-03-25] MEDS ORDERED: *HR* Dextrose 50 % in Water (Syg) 50 ML SYRINGE IVP PRN (17:46)
[2022-03-25] MEDS ORDERED: Dextrose Gel 15 GM/37.5 ML TUBE PO PRN ×2 (17:46)
[2022-03-25] MEDS ORDERED: D5% in Water 1,000 ML IVC PRN (17:46)
[2022-03-25] MEDS: Acetaminophen 325 MG TABLET PO PRN (18:18)
[2022-03-25] MEDS ORDERED: Ipratropium/Albuterol Neb 3 ML IH PRN (19:13)
[2022-03-25] MEDS ORDERED: Doxycycline 100 MG CAPSULE PO SCH (21:00)
[2022-03-25] MEDS: Ranolazine 500 MG TAB.ER.12H PO SCH (22:37)
[2022-03-25] MEDS: Mirtazapine 15 MG TABLET PO SCH (22:38)
[2022-03-25] MEDS: Gabapentin 400 MG CAPSULE PO SCH (22:38)
[2022-03-25] MEDS: Ziprasidone 20 MG CAPSULE PO SCH (22:38)
[2022-03-25] MEDS: Divalproex (12 HR) 250 MG TABLET PO SCH (22:39)
[2022-03-25] MEDS: Nitroglycerin 0.4 MG TAB.SUBL SL PRN ×3 (22:53→23:11)
[2022-03-25] MEDS: Insulin LISPRO 300 UNITS/3 ML VIAL SUBQ SCH (22:54)
[2022-03-25] MEDS: Morphine Sulfate 2 MG/ML SYRINGE IVP PRN (23:49)
[2022-03-26 03:06] LABS: INR 4.5; Prothrombin Time 49.2 Seconds (9.4-12.1)
[2022-03-26 03:47] LABS: Troponin I < 0.03 ng/mL (< 0.04)
[2022-03-26 03:53] LABS: BUN/Creatinine Ratio 19 (6-26); Blood Urea Nitrogen 12 mg/dL (6-20); Calcium 7.6 mg/dL (8.6-10.3); Carbon Dioxide 25 mEq/L (23-29); Chloride 104 mEq/L (98-107); Glucose 168 mg/dL (70-105); Osmolality,Calculated 294 (280-300); Potassium 3.9 mEq/L (3.5-5.1); Sodium 140 mEq/L (136-145); eGFR For African Americans > 60 (> 60); eGFR For Non-African Americans > 60 (> 60)
[2022-03-26 06:46] LABS: Basophils % 0.2 %; Eosinophils # 0.1 K/mcL (0.0-0.6); Eosinophils % 1.5 %; Hematocrit 31.7 % (35.3-44.9); Hemoglobin 9.2 g/dL (11.5-15.4); Immature Granulocytes % 1.9 % (0-4); Lymphocytes # 2.3 K/mcL (0.6-4.6); Lymphocytes % 26.4 %; Mean Corpuscular Hemoglobin 21.6 pg (28.0-33.3); Mean Corpuscular Volume 74.6 fL (83.0-100.0); Mean Platelet Volume 9.5 fL (9.4-12.4); Monocytes # 0.7 K/mcL (0.0-1.3); Monocytes % 8.2 %; Neutrophils # 5.3 K/mcL (1.6-8.9); Platelet Count 245 K/mcL (140-400); Red Blood Count 4.25 M/mcL (3.82-4.97); Red Cell Distribution Width 20.3 % (11.5-14.5); Segmented Neutrophils % 61.8 %; White Blood Count 8.6 K/mcL (4.3-11.1)
[2022-03-26] MEDS: Gabapentin 400 MG CAPSULE PO SCH ×3 (07:50→20:09)
[2022-03-26] MEDS: FLUoxetine 20 MG CAPSULE PO SCH (07:50)
[2022-03-26] MEDS: Ranolazine 500 MG TAB.ER.12H PO SCH ×2 (07:51→20:09)
[2022-03-26] MEDS: Aspirin Enteric Coated 81 MG Tablet PO SCH (07:51)
[2022-03-26] MEDS: lisinopriL 5 MG TABLET PO SCH (07:51)
[2022-03-26] MEDS: predniSONE 10 MG TABLET PO SCH (07:51)
[2022-03-26] MEDS: Divalproex (12 HR) 250 MG TABLET PO SCH ×2 (07:52→20:09)
[2022-03-26] MEDS: Ziprasidone 20 MG CAPSULE PO SCH ×2 (07:52→20:09)
[2022-03-26] MEDS: Nicotine 14 MG PATCH.TD24 TD SCH (07:54)
[2022-03-26] MEDS: Insulin LISPRO 300 UNITS/3 ML VIAL SUBQ SCH ×4 (07:55→20:10)
[2022-03-26 08:26] LABS: Estimated Average Glucose 194 mg/dl; Hemoglobin A1C 8.4 %
[2022-03-26] MEDS: Metoprolol XL (24 HR) Succ 25 MG TAB.ER.24H PO SCH (08:33)
[2022-03-26] MEDS ORDERED: Isosorbide MONOnitrate (24 HR) 60 MG TAB.ER.24H PO SCH (09:00)
[2022-03-26] MEDS: Nitroglycerin 0.4 MG TAB.SUBL SL PRN ×2 (09:25→12:15)
[2022-03-26] MEDS ORDERED: *HR* Phytonadione 10 MG/ML AMPUL SQ ONE (13:16)
[2022-03-26] MEDS: Acetaminophen 325 MG TABLET PO PRN (15:25)
[2022-03-26 17:23] LABS: Hematocrit 31.1 % (35.3-44.9); Hemoglobin 9.2 g/dL (11.5-15.4)
[2022-03-26] MEDS: Pantoprazole 40 MG VIAL IVP SCH (18:07)
[2022-03-26] MEDS: Mirtazapine 15 MG TABLET PO SCH (20:09)
[2022-03-26] MEDS: Morphine Sulfate 2 MG/ML SYRINGE IVP PRN (20:19)
[2022-03-26] MEDS: Insulin NPH/REG 70/30 100 UNIT/ML (x5UNIT) SUBQ SCH (20:19)
[2022-03-27 03:42] LABS: Basophils % 0.3 %; Eosinophils # 0.1 K/mcL (0.0-0.6); Eosinophils % 1.3 %; Hematocrit 30.1 % (35.3-44.9); Hemoglobin 8.7 g/dL (11.5-15.4); Immature Granulocytes % 1.2 % (0-4); Lymphocytes # 2.2 K/mcL (0.6-4.6); Lymphocytes % 21.5 %; Mean Corpuscular HGB Conc 28.9 g/dL (31.6-35.5); Mean Corpuscular Hemoglobin 21.8 pg (28.0-33.3); Mean Corpuscular Volume 75.4 fL (83.0-100.0); Mean Platelet Volume 9.9 fL (9.4-12.4); Monocytes % 9.6 %; Neutrophils # 6.6 K/mcL (1.6-8.9); Platelet Count 307 K/mcL (140-400); Red Blood Count 3.99 M/mcL (3.82-4.97); Red Cell Distribution Width 20.2 % (11.5-14.5); Segmented Neutrophils % 66.1 %
[2022-03-27 03:53] LABS: BUN/Creatinine Ratio 13 (6-26); Blood Urea Nitrogen 10 mg/dL (6-20); Calcium 8.3 mg/dL (8.6-10.3); Carbon Dioxide 35 mEq/L (23-29); Chloride 103 mEq/L (98-107); Glucose 89 mg/dL (70-105); Osmolality,Calculated 293 (280-300); Phosphorous 4.2 mg/dL (2.7-4.5); Sodium 142 mEq/L (136-145); eGFR For African Americans > 60 (> 60); eGFR For Non-African Americans > 60 (> 60)
[2022-03-27 04:03] LABS: INR 2.7; Prothrombin Time 29.5 Seconds (9.4-12.1)
[2022-03-27 04:24] LABS: Hypochromasia Present (Not Present)
[2022-03-27 04:25] LABS: Anisocytosis 2+ (Not Present); Platelet Estimate Normal (Normal); Polychromasia 1+ (Not Present)
[2022-03-27] MEDS: Pantoprazole 40 MG VIAL IVP SCH ×2 (05:31→17:55)
[2022-03-27] MEDS: Insulin LISPRO 300 UNITS/3 ML VIAL SUBQ SCH ×4 (06:49→20:49)
[2022-03-27] MEDS: Nicotine 14 MG PATCH.TD24 TD SCH (10:10)
[2022-03-27] MEDS: Insulin NPH/REG 70/30 100 UNIT/ML (x5UNIT) SUBQ SCH ×2 (10:10→20:50)
[2022-03-27] MEDS: lisinopriL 5 MG TABLET PO SCH (10:17)
[2022-03-27] MEDS: predniSONE 10 MG TABLET PO SCH (10:17)
[2022-03-27] MEDS: Isosorbide MONOnitrate (24 HR) 60 MG TAB.ER.24H PO SCH (10:17)
[2022-03-27] MEDS: Gabapentin 400 MG CAPSULE PO SCH ×3 (10:18→20:51)
[2022-03-27] MEDS: Ranolazine 500 MG TAB.ER.12H PO SCH ×2 (10:18→20:51)
[2022-03-27] MEDS: Metoprolol XL (24 HR) Succ 25 MG TAB.ER.24H PO SCH (10:18)
[2022-03-27] MEDS: Ziprasidone 20 MG CAPSULE PO SCH ×2 (10:18→20:51)
[2022-03-27] MEDS: Aspirin Enteric Coated 81 MG Tablet PO SCH (10:19)
[2022-03-27] MEDS: FLUoxetine 20 MG CAPSULE PO SCH (10:19)
[2022-03-27] MEDS: DilTIAZem CD (24hr) 120 MG CAP.ER.24H PO SCH (10:21)
[2022-03-27] MEDS: Divalproex (12 HR) 250 MG TABLET PO SCH ×2 (10:21→20:51)
[2022-03-27 12:37] LABS: Chol/HDL Ratio 3.7 (0-4.9); Cholesterol 144 mg/dL (< 200); HDL Cholesterol 39 mg/dL (40-59); LDL Cholesterol,Calculated 76 mg/dL (< 100); Triglycerides 147 mg/dL (< 150)
[2022-03-27] MEDS: Morphine Sulfate 2 MG/ML SYRINGE IVP PRN ×2 (12:46→21:09)
[2022-03-27] MEDS: Mirtazapine 15 MG TABLET PO SCH (20:51)
[2022-03-28] MEDS: Morphine Sulfate 2 MG/ML SYRINGE IVP PRN ×2 (03:23→08:11)
[2022-03-28] MEDS: Pantoprazole 40 MG VIAL IVP SCH (05:59)
[2022-03-28 06:06] LABS: INR 1.4; Prothrombin Time 15.9 Seconds (9.4-12.1)
[2022-03-28] MEDS: Insulin LISPRO 300 UNITS/3 ML VIAL SUBQ SCH ×3 (06:56→16:27)
[2022-03-28 10:46] LABS: Hematocrit 32.1 % (35.3-44.9); Hemoglobin 9.3 g/dL (11.5-15.4)
[2022-03-28] MEDS: Insulin NPH/REG 70/30 100 UNIT/ML (x5UNIT) SUBQ SCH (11:32)
[2022-03-28] MEDS: Aspirin Enteric Coated 81 MG Tablet PO SCH (11:44)
[2022-03-28] MEDS: DilTIAZem CD (24hr) 120 MG CAP.ER.24H PO SCH (11:44)
[2022-03-28] MEDS: Divalproex (12 HR) 250 MG TABLET PO SCH (11:44)
[2022-03-28] MEDS: Ziprasidone 20 MG CAPSULE PO SCH (11:45)
[2022-03-28] MEDS: Isosorbide MONOnitrate (24 HR) 60 MG TAB.ER.24H PO SCH (11:45)
[2022-03-28] MEDS: Gabapentin 400 MG CAPSULE PO SCH ×2 (11:45→14:19)
[2022-03-28] MEDS: Nicotine 14 MG PATCH.TD24 TD SCH (11:45)
[2022-03-28] MEDS: Metoprolol XL (24 HR) Succ 25 MG TAB.ER.24H PO SCH (11:46)
[2022-03-28] MEDS: predniSONE 10 MG TABLET PO SCH (11:46)
[2022-03-28] MEDS: FLUoxetine 20 MG CAPSULE PO SCH (11:46)
[2022-03-28] MEDS: lisinopriL 5 MG TABLET PO SCH (11:46)
[2022-03-28] MEDS: Ranolazine 500 MG TAB.ER.12H PO SCH (11:46)
[2022-03-28] MEDS ORDERED: *HR* LORazepam 2 MG/ML VIAL IVP ONE (13:03)
[2022-03-28] MEDS ORDERED: Lidocaine -MPF 2% 2 ML VIAL ONE (14:23)
[2022-03-28] MEDS ORDERED: *HR* Propofol 200 MG/20 ML VIAL IVP ONE (14:24)
[2022-03-28] MEDS ORDERED: EPHEDrine 50 MG/ML VIAL ONE (15:38)
[2022-03-28 16:23] VITALS: TEMP 97.9
[2022-03-28 17:23] VITALS: BP 156/77; PULSE 78; O2SAT 96
== END 2022-03-28 18:00 | disposition home or self-care (01) ==
LOC: SUATTDRO → 3BNU 12:40 → EMEROOARM 12:40 → SUATTDRO 19:46 → 3BNU 20:46
PROVIDERS: ADMIT Pharmacist; ATTEND Nurse Practitioner
PROC: ENDOEBX (2022-03-28 14:30)